=== PATIENT | female | born 2000 | race Caucasian/White ===

== ENCOUNTER → 2024-08-31 | Outpatient (CLI) | payer MEDICAID, SELFPAY ==
[2024-08-31 17:12] LABS: Color, Urine Yellow (Yellow); Glucose, Dipstick Normal (Normal); Leukocyte Esterase-Dipstick 500 /ul (Negative); Nitrite-Dipstick Positive (Negative); Occult Blood-Urine 25 /ul (Negative); Protein-Dipstick 30 mg/dl (Negative); Specific Gravity, Urine 1.025 (1.002-1.030); Urine Bilirubin Dipstick Negative (Negative); Urine Clarity Sl. Cloudy (Clear); Urine Urobilinogen 4 mg/dl (Normal)
[2024-08-31 17:13] LABS: Hemoglobin 13.5 g/dL (12.0-15.0); Mean Corp Hgb Conc 32.1 g/dL (32-36); Mean Corpuscular Hgb 27.5 pg (27.0-32.0); Mean Corpuscular Volume 85.5 fL (81-99); Mean Platelet Vol. 11.8 fl (6.2-12.0); Platelet Count 290 K/mm3 (150-450); RBC Distribution Width CV 14.3 % (11.6-14.6); RBC Distribution Width SD 43.9 fl (35.1-43.9); Red Blood Count 4.91 M/mm3 (4.2-5.4); White Blood Count 11.2 K/mm3 (4.4-11.0)
[2024-08-31 17:28] LABS: Ketone-Dipstick 150 mg/dl (Negative)
[2024-08-31 17:44] LABS: ALB/GLOB Ratio 0.9 RATIO (0.9-2.4); AST(SGOT) 23 U/L (15-37); Alanine Aminotransfer ALT/SGPT 57 U/L (13-56); Albumin, Serum 3.8 g/dL (3.2-5.0); Alkaline Phosphatase 66 U/L (45-117); Anion Gap 13 (5-15); BUN 7 mg/dL (7-18); BUN/Creat Ratio 12.4 RATIO (10-20); Calcium,Total 10.5 mg/dL (8.5-10.1); Chloride 104 mmol/L (98-107); Creatinine, Serum 0.56 mg/dL (0.55-1.02); EST Glomerular Filtration Rate 142 mL/min (>60); Est Glom Filt Rate - Afr Amer 172 mL/min (>60); Globulin 4.4 g/dL (2.2-4.2); Glucose 84 mg/dL (74-106); Potassium 3.5 mmol/L (3.5-5.1); Protein, Total 8.2 g/dL (6.4-8.2); Sodium Level 135 mmol/L (136-145); T4 Free Direct 1.67 ng/dL (0.76-1.46); Thyroid Stim Hormone (TSH) 0.075 uIU/mL (0.358-3.740)
[2024-09-03 12:08] LABS: Vitamin D 1,25-Dihydroxy 59.3 pg/mL (24.8-81.5)
== END | disposition home or self-care (01) ==
PROVIDERS: PCP Nurse Practitioner Family; Referring Provider Nurse Practitioner Family; Visit Provider Nurse Practitioner Family
DX: Z33.1 Pregnant state, incidental (principal); R53.83 Other fatigue; E72.12 Methylenetetrahydrofolate reductase deficiency; R00.0 Tachycardia, unspecified
CPT/HCPCS: 36415; 80053; 81002; 82652; 82746; 84439; 84443; 85027; 87077; 87086; 87088; 87186; 87491; 87591

== ENCOUNTER 2025-03-26 09:25 | Inpatient (IN) | payer MEDICAID, SELFPAY ==
[2025-03-26] VITALS (49 sets, daily range): BP systolic 98–147; BP diastolic 57–106; PULSE 70–109; RESP 16–18; TEMP 36.5–37.2; O2SAT 91–100; BMI 33.5
--- OUTSIDE RECORDS SUMMARY | 2025-03-26 08:58 | XMS RPT_ITS | CCD ---
Author Organization [facility] Care Team Providers Care Cad Intern Name Role Phone Unavailable Primary Care Provider Unavailabl e Doretha SEISMOGRAPH RECORDERShantellLidia Unavailable DORETHA LIDIA SEISMOGRAPH RECORDER%C Consulting Unavailab CAROLYN Gambino CNM Admitting Unavailable CAROLYN RICHMOND CNM Attending Unavailable CAROLYN RICHMOND CNM Primary Care Unavailable PROVIDER, UNKNOWN Consulting Unavailable DORETHA LIDIA SEISMOGRAPH RECORDER%C Referring Unavailab le CSERNYNICOLASA BEAUCHAMP DO Admitting Unavailable CSERNICOLASA CALLE DO Attending Unavailable JONATHONRASTRID CALLEIC DO Primary Care Unavailable DORETHA LIDIA SEISMOGRAPH RECORDER%C Consulting Unavailab le PROVIDER, UNKNOWN Consulting Unavailable ADRIENNE FUNEZ MD Admitting Unavailabl ADRIENNE Chiang MD Attending UnavailADRIENNE Field MD Primary Care Unavailabl e BARRY LARRY MD Admitting Unavailable BARRY LARRY MD Attending Unavailable BARRY LARRY MD Primary Care Unavailable DORETHA LIDIA SEISMOGRAPH RECORDER%C Consulting Unavailab le PROVIDER, UNKNOWN Consulting Unavailable LIDIA RAZA CNM Admitting Unavailable LIDIA RAZA CNM Attending Unavailable LIDIA RAZA CNM Primary Care Unavailable DORETHA LIDIA SEISMOGRAPH RECORDER%C Consulting Unavailab le PROVIDER, UNKNOWN Consulting Unavailable JAMISON ALBERT L Admitting Unavailable ALBERT SWIFT L Attending Unavailable JAMISON ALBERT L Primary Care Unavailable DORETHA, LIDIA SEISMOGRAPH RECORDER%C Consulting Unavailab le PROVIDER, UNKNOWN Consulting Unavailable DORETHA LIDIA SEISMOGRAPH RECORDER%C Primary Care Unavailab le DORETHA, LIDIA SEISMOGRAPH RECORDER%C Admitting Unavailab le DORETHA LIDIA SEISMOGRAPH RECORDER%C Attending Unavailab LIDIA Ham CNM Admitting Unavailable LIDIA RAZA CNM Attending Unavailable LIDIA RAZA CNM Primary Care Unavailable DORETHA, LIDIA SEISMOGRAPH RECORDER%C Consulting Unavailab le PROVIDER, UNKNOWN Consulting Unavailable Doretha SEISMOGRAPH RECORDER-C, Lidia Primary Care Provider Doretha SEISMOGRAPH RECORDER-C, Lidia Referring Provider Tr Rendon Attending Provider Doretha VSC, Lidia Referring Unavailabl e Doretha VSC, Lidia Primary Care Unavailabl e Laron, Barry Attending Unavailable Doretha VSC, Lidia Referring Unavailabl e Doretha VSC, Lidia Attending Unavailabl e Doretha VSC, Lidia Primary Care Unavailabl e Doretha VSC, Lidia Primary Care Unavailabl e Laron, Nora Referring Unavailable Laron, Barry Attending Unavailable Doretha VSC, Lidia Referring Unavailabl e Tr Carrasquillo Attending Unavailable Doretha VSC, Lidia Primary Care Unavailabl e KRISTA, CAPRI S Attending Unavailable PLOTTS, CAROLYN Referring Unavailable RAZA, LIDIA Attending Unavailable RAZA, LIDIA Referring Unavailable BENDARAEMMA Jauregui Attending Unavaila ble HAURYTIA Attending Unavailable STEFF, LIZETH Attending Unavailable KRISTA, RIM Landy Attending Unavailable RAZA, LIDIA Attending Unavailable STEFF, LIZETH Attending Unavailable PLOTTS, CAROLYN Referring Unavailable STEFF, LIZETH Attending Unavailable PLOTTS, CAROLYN Referring Unavailable LUIS MIGUELKALEE CHO Attending Unavailable PLOTTS, CAROLYN Referring Unavailable RAZA, LIDIA Referring Unavailable STEFF, LIZETH Attending Unavailable RAZA, LIDIA Referring Unavailable HAURY, TIA Referring Unavailable RAZA, LIDIA Referring Unavailable STEFANIE CAMPBELL Attending Unavailable RAZA, LIDIA Referring Unavailable PLOTTS, CAROLYN Attending Unavailable JAMISON, ALBERT Referring Unavailable WISSHARYN CAUSEY Attending Unavailable JAMISON, ALBERT Referring Unavailable Allergies Allergy Classification Reported Allergen(s) Allergy Type Date of Onset Reaction(s) Facility (20 sources) Amoxicillin; Translations: [AMOXICILLIN] Drug Allergy 5 GI Upset [facility] (20 sources) H Papillomavirus Vac,Qval (Pf); Translations: [H PAPILLOMAVIRUS VAC,QVAL (PF)] Drug Allergy 5 Other: See Comments [facility] (1 source) Penicillin Drug Allergy [facility] Repository (1 source) raNITIdine Drug Allergy 5 PT UNSURE OF REACTION [facility] (1 source) Amoxicillin Drug Allergy 5 [facility] Repository (1 source) raNITIdine Drug Allergy 5 [facility] Repository Medications Current Medications Medication Drug Class(es) Dates Sig (Normalized) Sig (Original) alpha-tocopherol acetate 30 unt / ascorbic acid 100 mg / beta carotene 1000 unt / calcium carbonate 200 mg / calcium pantothenate 7 mg / cholecalciferol 400 unt / docusate sodium 25 mg / ferrous fumarate 29 mg / folic acid 1 mg / niacinamide 15 mg / pyridoxine hydrochloride 20 mg / riboflavin 3 mg / thiamine 3 mg / vitamin b12 0.012 mg / zinc oxide 20 mg oral tablet (1 source) Vitamin B12, Vitamin D, Vitamin C Start: 09-09-2024 Pnv 119-Iron Fum-Folic Acid 29 mg iron- 1 mg tablet Active {tbl} PO September 09, 2024 1:00am aspirin 81 mg delayed release oral tablet (20 sources) Platelet Aggregation Inhibitor, Nonsteroidal Anti-inflammatory Drug Start: 09-15-2024 take 1 tablet by mouth once daily aspirin, enteric coated (ECOTRIN LOW STRENGTH) 81 mg EC tablet Indications: with uncertain dates, antepartum (HCC) Take 1 tablet by mouth once daily. 90 tablet 3 09/15/2024 Active Blood-Glucose Meter (2 sources) Start: 01-18-2025 End: 01-19-2025 Blood-Glucose Meter Use as directed to check glucose levels up to seven times daily. 1 each 01/18/2025 01/19/2025 Active cephalexin 500 mg oral capsule (2 sources) Cephalosporin Antibacterial Start: 09-20-2024 End: 09-27-2024 take 1 capsule by mouth four times daily cephALEXin (KEFLEX) 500 mg capsule Take 1 capsule by mouth four times daily for 7 days. 28 capsule 09/20/2024 09/27/2024 Active isopropyl alcohol 0.7 ml/ml medicated pad (16 sources) Start: 01-18-2025 alcohol swabs (ALCOHOL PREP PADS) Use as directed to check glucose levels up to seven times daily. 200 each 8 01/18/2025 Active loratadine 10 mg oral tablet (2 sources) Start: 09-09-2024 End: 09-15-2024 take 1 tablet by mouth once daily as needed Loratadine 10 mg tablet Active 10 mg PO daily as needed September 15, 2024 4:44pm 24 hr metoprolol succinate 50 mg extended release oral tablet (20 sources) beta-Adrenergic Juan Start: 09-15-2024 take 1 tablet by mouth twice daily metoprolol succinate ER (TOPROL XL) 50 mg 24 hr tablet Take 1 tablet by mouth two times a day. 10/15/2024 Active Start: 07-13-2024 End: 10-15-2024 take 1 tablet by mouth once daily Metoprolol Succinate 100 mg tablet extended release 24 hr Discontinued 100 mg PO daily September 09, 2024 1:00am September 15, 2024 5:24pm pantoprazole 20 mg delayed release oral tablet (20 sources) Proton Pump Inhibitor Start: 12-20-2024 End: 01-20-2025 take 1 tablet by mouth once daily pantoprazole DR (PROTONIX) 20 mg tablet Take 1 tablet by mouth once daily. 30 tablet 2 01/20/2025 Active VITAMIN 27 mg iron- 0.8 mg tablet (20 sources) Start: 03-11-2025 take 1 tablet by mouth once VITAMIN 27 mg iron- 0.8 mg tablet Take 1 tablet by mouth every afternoon. 30 tablet 3 03/11/2025 Active Start: 09-01-2024 End: 03-11-2025 take 1 tablet by mouth once VITAMIN 27 mg iro n- 0.8 mg tablet Take 1 tablet by mouth every afternoon. 09/01/2024 03/11/2025 Discontinued Start: 09-01-2024 take 1 tablet by mouth once [place] ENATAL VITAMIN 27 mg iron- 0.8 mg tablet Take 1 tablet by mouth every afternoon. 09/01/2024 Active Completed/Discontinued Medications Medication Drug Class(es) Dates Sig (Normalized) Sig (Original) amoxicillin 50 mg/ml oral suspension (2 sources) Penicillin-class Antibacterial Start: 03-02-2025 End: 03-02-2025 250 mg, ORAL, ONCE (UP TO 30 DAYS AMB), 1 dose, On Fri03/02/25 at 1130, Give 25mg amoxicillin suspension, wait 30 minutes. If there is no adverse reaction after 30 minutes , administer the remaining 225mg of amoxicillin suspension and monitor for an additional 60 minutes. Vital Signs recorded at baseline, PRN with symptoms, and at oral challenge completion. Refrigerate - Shake Well., Antimicrobial indication: Prophylaxis Start: 03-02-2025 End: 03-02-2025 amoxicillin 250 mg oral liqu id (AMOXIL) famotidine 20 mg oral tablet (18 sources) Histamine-2 Receptor Antagonist Start: 09-09-2024 End: 01-26-2025 famotidine (PEPCID) 20 mg tablet Take 20 mg by mouth. 09/14/2024 12/20/2024 Discontinued Problems Active Problems Problem Classification Problem Date Documented Date Episodic/Chronic Administrative/socia l admission (2 sources) Inadequate material resources; Translations: [Transportation insecurity] 12-13-2024 Episodic Asthma (1 source) Asthma; Translations: [Unspecified asthma, uncomplicated] 09-09-2024 Chronic Cardiac dysrhythmias (2 sources) Inappropriate sinus tachycardia; Translations: [Inappropriate sinus tachycardia] 09-09-2024 Chronic Diabetes mellitus without complication (19 sources) Increased glucose level; Translations: [Other abnormal glucose] Onset: 01-05-2025 01-05-2025 Episodic Diabetes or abnormal glucose tolerance complicating ; childbirth; or the puerperium (1 source) and type 1 diabetes mellitus; Translations: [Pre-existing type 1 diabetes mellitus, in , unspecified trimester] 09-20-2024 Chronic Diabetes or abnormal glucose tolerance complicating ; childbirth; or the puerperium (20 sources) Gestational diabetes mellitus; Translations: [Gestational diabetes mellitus in , unspecified control] Onset: 01-20-2025 01-18-2025 Episodic E Codes: Adverse effects of medical drugs (4 sources) Adverse reaction to drug; Translations: [Adverse effect of unspecified drugs, medicaments and biological substances, initial encounter] Onset: 12-23-2024 12-22-2024 Episodic Esophageal disorders (1 source) Gastroesophageal reflux disease; Translations: [Gastro-esophageal reflux disease without esophagitis] 09-09-2024 Chronic Other complications of (1 source) Late entry into care; Translations: [Supervision of with insufficient care, unspecified trimester] 12-20-2024 Episodic Other complications of (1 source) ultrasound scan abnormal; Translations: [Abnormal ultrasonic finding on screening of mother] 01-20-2025 Episodic Other complications of (6 sources) Group B Streptococcus carrier; Translations: [Streptococcus B carrier state complicating ] Onset: 03-13-2025 03-13-2025 Episodic Other complications of (1 source) Streptococcus B carrier state complicating ; Translations: [Group B Streptococcus carrier, antepartum (HCC)] Onset: 03-13-2025 Episodic Other complications of (1 source) Supervision of high risk , unspecified, third trimester; Translations: [Supervision of high risk in third trimester (HCC)] Onset: 03-11-2025 Episodic Other complications of (1 source) Abnormal ultrasonic finding on screening of mother; Translations: [Abnormal ultrasound] Onset: 01-20-2025 Episodic Other complications of (1 source) Supervision of high risk , unspecified, second trimester; Translations: [Supervision of high risk in second trimester ([facility])] Onset: 12-20-2024 Episodic Other complications of (1 source) Supervision of with insufficient care, unspecified trimester; Translations: [Late care affecting , antepartum ([facility])] Onset: 12-20-2024 Episodic Other female genital disorders (1 source) Vaginal discharge; Translations: [Other specified noninflammatory disorders of vagina] 09-15-2024 Episodic Other lower respiratory disease (1 source) Dyspnea; Translations: [Dyspnea, unspecified] 09-09-2024 Episodic Other nutritional; endocrine; and metabolic disorders (1 source) 5,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; 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] 09-09-2024 Chronic Other and delivery including normal (6 sources) with uncertain dates; Translations: [Encounter for supervision of normal , unspecified, unspecified trimester] Onset: 09-15-2024 09-15-2024 Episodic Other screening for suspected conditions (not mental disorders or infectious disease) (9 sources) Patient encounter status; Translations: [Encounter for screening for malignant neoplasm of cervix] Onset: 10-14-2024 09-15-2024 Episodic Residual codes; unclassified (1 source) Gestation period, 12 weeks; Translations: [12 weeks gestation of ] 09-20-2024 Episodic Residual codes; unclassified (1 source) Gestation period, 16 weeks; Translations: [16 weeks gestation of ] 10-14-2024 Episodic Residual codes; unclassified (2 sources) Gestation period, 25 weeks; Translations: [25 weeks gestation of ] 12-20-2024 Episodic Residual codes; unclassified (1 source) Gestation period, 28 weeks; Translations: [28 weeks gestation of ] 01-04-2025 Episodic Residual codes; unclassified (1 source) Gestation period, 30 weeks; Translations: [30 weeks gestation of ] 01-20-2025 Episodic Residual codes; unclassified (1 source) Gestation period, 35 weeks; Translations: [35 weeks gestation of ] 02-25-2025 Episodic Residual codes; unclassified (1 source) 38 weeks gestation of ; Translations: [38 weeks gestation of (HCC)] Onset: 03-17-2025 Episodic Residual codes; unclassified (1 source) 37 weeks gestation of ; Translations: [37 weeks gestation of (HCC)] Onset: 03-11-2025 Episodic Residual codes; unclassified (1 source) 35 weeks gestation of ; Translations: [35 weeks gestation of (HCC)] Onset: 02-25-2025 Episodic Residual codes; unclassified (1 source) 30 weeks gestation of ; Translations: [30 weeks gestation of (HCC)] Onset: 01-20-2025 Episodic Residual codes; unclassified (1 source) 25 weeks gestation of ; Translations: [25 weeks gestation of (HCC)] Onset: 01-04-2025 Episodic Residual codes; unclassified (1 source) 28 weeks gestation of ; Translations: [28 weeks gestation of (HCC)] Onset: 01-04-2025 Episodic Residual codes; unclassified (1 source) Gestation period, 37 weeks; Translations: [37 weeks gestation of ] 03-11-2025 Episodic Residual codes; unclassified (1 source) Gestation period, 39 weeks; Translations: [39 weeks gestation of ] 03-25-2025 Episodic Thyroid disorders (20 sources) Hypothyroidism; Translations: [Other specified hypothyroidism] Onset: 09-16-2024 09-16-2024 Chronic Unclassified (20 sources) [facility] Education - COMMON Onset: 09-15-2024 09-15-2024 Unclassified (20 sources) Education - [place] Onset: 09-15-2024 09-15-2024 Unclassified (2 sources) Inappropriate sinus tachycardia, so stated; Translations: [Inappropriate sinus tachycardia, so stated] Onset: 09-15-2024 Unclassified (1 source) Transportation insecurity; Translations: [Transportation insecurity] Onset: 12-20-2024 Urinary tract infections (1 source) Urinary tract infectious disease; Translations: [Urinary tract infection, site not specified] 09-15-2024 Episodic Past or Other Problems Problem Classification Problem Date Documented Da te Episodic/Chronic Allergic reactions (20 sources) Allergy to penicillin; Translations: [Allergy status to penicillin] Onset: 09-20-2024 09-20-2024 Episodic Cardiac dysrhythmias (20 sources) Tachycardia; Translations: [Tachycardia, unspecified] Onset: 09-16-2024 09-16-2024 Episodic Other complications of (20 sources) High risk ; Translations: [Supervision of high risk , unspecified, first trimester] Onset: 09-16-2024 09-16-2024 Episodic Other complications of (20 sources) Urinary tract infection in ; Translations: [Unspecified infection of urinary tract in , unspecified trimester] Onset: 09-16-2024 09-16-2024 Episodic Other complications of (1 source) Unspecified infection of urinary tract in , unspecified trimester; Translations: [UTI (urinary tract infection) in , antepartum (HCC)] Onset: 09-16-2024 Episodic Other lower respiratory disease (1 source) Dyspnea, unspecified; Translations: [Dyspnea, unspecified] Onset: 09-15-2024 Episodic Unclassified (1 source) Patient encounter status 11-17-2024 Results Test Name Value Interpretation Reference Range Facil ity URINE OB DIP B/Oon Glucose Ql (U) Negative Neg mg/dL [facility] Interpretation and review of laboratory results Normal [facility] Protein.monoclonal (U) [Mass/Vol] Negative Neg mg/dL [facility] ROUTINE, GROUP B ST REPTOCOCCUS BY PCRon 03-13-2025 Interpretation and review of laboratory results Abnormal [facility] S. agalactiae DNA DILIP+probe Ql (Unsp spec) Detected Abnormal Not detected [facility] If susceptibility testing is needed and was not requested with initial test order, call lab ([facility] micro is [phone]) within 5 days to initiate workup. This PCR is performed on a vaginal-rectal swab after culture enrichment. It is the most sensitive method for Group B Streptococcus screening. (Obstet Gynecol. 2020 PMID [id number]) [facility] ROUTINE, GROUP B ST REPTOCOCCUS BY PCRon 03-11-2025 ROUTINE, GROUP B STREPTOCOCCUS BY PCR Detected Abnormal [facility] Comment on above: Performed By: #### G BPCR ####[facility] LABCLIA [id number] [place] [address] [place] URINE OB DIP B/Oon Glucose Ql (U) Negative Neg mg/dL [facility] Interpretation and review of laboratory results Normal [facility] Protein.monoclonal (U) [Mass/Vol] trace Neg mg/dL [facility] Examination level ultrasound on 03-04-2025 [facility] Examination level ultrasound on 03-03-2025 Radiology Study observation (narrative) [facility] T4 Free SerPl-mCncon 025 Free T4 [Mass/Vol] 1.1 ng/dL Normal 0.9-1.7 [facility] Comment on above: Order Comment: Speci men Type: BLOOD SPECIMENOrdering Facility: [facility] Address: [address] [place] [address] Performed By: #### 3 024-7, 3016-3 ####[facility] LABIA [id number] [place] [address] [place] TSH SerPl-aCncon 03-03-2025 TSH Qn 1.110 m[IU]/L Normal 0.270-4.200 [facility] Comment on above: Order Comment: Speci men Type: BLOOD SPECIMENOrdering Facility: [facility] Address: [address] [place] [address] Result Comment: If t he patient is , TSH reference range varies by gestational period: First Trimester (weeks 9-12): 0.180-2.990 mIU/L Second Trimester: 0.110-3.980 mIU/L Third Trimester: 0.480-4.710 mIU/L Darrick Ramires et al. A Practical Approach for the Verifications and Determination of Site- and Trimester-Specific Reference Intervals for Thyroid Function tests in . Thyroid, 2019:29:3:412-420. William Campos, et al. 2017 Guidelines of the [employer] Thy[employer] for the Diagnosis and Management of Thyroid Disease during and the . Thyroid, 2017:27:3:315-389. Performed By: #### 3 024-7, 3016-3 ####[facility] LABCLIA [id number] [place] [address] [place] URINE OB DIP B/Oon 5 Glucose Ql (U) Negative Neg mg/dL [facility] Protein.monoclonal (U) [Mass/Vol] trace Neg mg/dL [facility] CNOVon 03-02-2025 CNOV Office Visit ([facility] ) -------- LÓPEZ BRAVO ([id number]) 4 F Date Time Provider Department 03/02/25 10:30 AM CAPRI BROWN During your visit today, we recorded the following information about you: Temperature Pulse Respiration Blood pressure 98.2 degrees 108/minute 16/minute 107/73 Weight Height 82.6 kg 1.57 m Capri Brown MD 03/02/2025 8:40 PM Signed Allergy and Immunology All aspects of this note have been reviewed and updated López Bravo is a 24 year old female who was last seen by me on 12/23/2024, here today for follow up. Since last visit Currently 36 weeks Here today for penicillin testing Held antihistamines this week Held morning dose of metoprolol Documentation from Previous Encounters 12/23/2024 López is currently 26 weeks . She reports a history of possible penicillin allergy, noting a past reaction to amoxicillin characterized by emesis and abdominal discomfort. This reaction occurred while she was being treated for a UTI, which required hospitalization due to dehydration. She denies any history of urticaria or rash with amoxicillin. She has a family history of penicillin allergy, with both her mother and sister affected. She also reports a significant reaction to the Gardasil vaccine at age 14, which included severe leg weakness and somnolence lasting three days. She describes herself as having very sensitive skin, reacting to various soaps and shaving creams with bumps on her legs. She currently uses loratadine as needed for allergies. López has a history of tachycardia, with heart rates reaching 200 bpm. She has been on metoprolol 50 mg BID since age 18, which she reports effectively controls her heart rate but causes fatigue. PAST MEDICAL AND SURGICAL HISTORY: PAST MEDICAL HISTORY Diagnosis Date Tachycardia PAST SURGICAL HISTORY Procedure Laterality Date HEMATOMA EVACUATION 2002 chin ALLERGIES: is allergic to gardasil [h papillomavirus vac,qval (pf)]. FAMILY HISTORY: FAMILY HISTORY Problem Relation Age of Onset Blood Disease Mother mtfhr Thyroid Mother Diabetes Father type 2 other (asd) Sister arterial spectrum defect Fibromyalgia Maternal Grandmother Coronary Artery Disease Maternal Grandmother other (htn) Maternal Grandmother other (mtfhr) Maternal Grandmother Stroke Maternal Grandfather Heart disease Paternal Grandmother REVIEW OF SYSTEMS: All systems were reviewed and were negative except as listed in the HPI and above. PHYSICAL EXAM: BP 107/73 (BP Site: Right Arm, BP Position: Sitting, BP Cuff Size: Regular Adult) Pulse 108 Temp 36.8 ?C (98.2 ?F) (Oral) Resp 16 SpO2 98% General: The patient is pleasant, well groomed, in no acute distress, breathing comfortably and interactive with the exam. Head: Normocephalic, atraumatic Musculoskeletal: Normal muscle tone and gait. Neurologic: Grossly non-focal Psych: Appropriate affect. Dermatologic: No rash, urticaria or excoriations. PROCEDURE: López has not been sick, has not taken any antihistamines, has had no asthma symptoms recently and has no rashes today. I have discussed the risks, benefits, and alternatives for the drug ingestion challenge being performed today. The benefits of the drug challenge include being able to re-introduce the drug if needed in the future. The risks include the patient developing an allergic (IgE/Anaphylaxis) delayed allergic or non-allergic reaction to the food. Symptoms of an allergic reaction could include hives, swelling, wheezing, shortness of breath, lightheadedness, low blood pressure, vomiting, and diarrhea. Delayed reactions tend to be rashes that are self limited and not life threatening. Rare reactions such as blistering skin rashes or serum sickness like reaction may occur though this is rare and is not the reason this drug challenge is being done- Therefore the risk for the blistering rashes or serum sickness like reaction is the same as the general population. Treatment of these reactions may require medications such as antihistamines, steroids, intravenous fluids or epinephrine, and the reaction may require hospitalization. If the patient tolerates the drug challenge then they may use this drug as clinically indicated after the patient, family and treating physician determine on an individual basis that the benefits outweigh the risks- which is they way all drugs should be thought of. The alternatives involve the patient continuing drug avoidance and using equally efficacious alternatives as clinically indicated. ALLERGENS Negative Control (50% glycerin/50% cocas for prick and HSA for intradermal) P: W = 0 mm F = 0 mm ID:W = 0 mm F = 0 mm PENICILLIN GK 10,000 UNITS/ML [facility]: [id number] LOT: [id number] Exp: 10/08/2025 P: W = 0 mm F = 0 mm ID: W = 0 mm F = 0 mm PREPEN -(benzy (more content not included)... Normal [facility] 02-28-2025 [facility] Telephone ([id number]) -------- LÓPEZ BRAVO ([id number]) 4 F Date Time Provider Department 02/28/25 LIZETH PATEL [id number] During your visit today, we recorded the following information about you: Lizeth Patel RN 02/28/2025 8:34 AM Signed 3rd risk assessment form submitted 02/28/2025. 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 - blood sugar diagnostic test strip Use as directed to check glucose levels up to seven times daily. - Lancets Use as directed to check glucose levels up to seven times daily. - alcohol swabs (ALCOHOL PREP PADS) Use as directed to check glucose levels up to seven times daily. - metoprolol succinate ER (TOPROL XL) 50 mg 24 hr tablet Take 1 tablet by mouth two times a day. - aspirin, enteric coated (ECOTRIN LOW STRENGTH) 81 mg EC tablet Take 1 tablet by mouth once daily. - VITAMIN 27 mg iron- 0.8 mg tablet Take 1 tablet by mouth every afternoon. Problem List As Of Date 02/28/2025 Noted Resolved Supervision of high risk in first tri*09/16/2024 Other specified hypothyroidism [E03.8] 09/16/2024 Tachycardia [R00.0] 09/16/2024 UTI (urinary tract infection) in , ant*09/16/2024 Penicillin allergy [Z88.0] 09/20/2024 Elevated glucose [R73.09] 01/05/2025 Diet controlled gestational diabetes mellitus (*01/20/2025 Encounter Status:Closed by LIZETH PATEL on 02/28/25 Normal [facility] URINE OB DIP B/Oon Glucose Ql (U) Negative Neg mg/dL [facility] Interpretation and review of laboratory results Normal [facility] Protein.monoclonal (U) [Mass/Vol] Negative Neg mg/dL [facility] Examination level ultrasound on 02-03-2025 [facility] Examination level ultrasound on 02-02-2025 Radiology Study observation (narrative) [facility] Cardiology Visit Reporton Cardiology Visit Report [facility] [address] [place] [address] OFFICE VISIT Date of Service: 01/26/25 MR#: [id number] Acct: [id number] Name: LÓPEZ BRAVO Rep #: [id number] : 2000 Provider: GOLDY Finley Age/Sex: 24/F Location: [facility] Status: Signed HPI HPI History of Present Illness Details: Sushma Bravo is a 24-year-old female who presents to office today for follow-up for monitoring her cardiovascular health. She presented to our office in September 2024 with concerns of tachycardia x 7 years. She was told that she had inappropriate sinus tachycardia but they could not perform an ablation. She has been on metoprolol since she was 18 and her dosage has been increased. In March 2024, she did see a software engineer web services in [place] and at that time, an EKG demonstrated sinus rhythm at a rate of 87 bpm and no acute changes were noted. No particular therapy was prescribed. Recent, she has been feeling fatigued when she takes the medication and feels like sleeping all the time. Patient was seen in office 09/15/2024 and was suggested to undergo echocardiogram and divide her metoprolol dose to 50 mg twice a day. Of note, she was about 12 weeks at the time of this appointment. Upon presentation today, patient reports doing well. She reports her fatigue and headaches have improved. She is now 31 weeks . Her heartburn is long-standing and unchanged. She reports tolerating metoprolol divided twice daily. She denies noticing any tachycardia. Her lightheadedness has improved as well. Further ROS below. Intake Vital Signs 09/15/24 15:49 01/26/25 14:25 Height 5 ft 2 in 5 ft 2 in Weight: 165 lb 179 lb BMI 30.2 32.7 BP 114/78 107/77 Blood Pressure Location Lt radial Lt brachial Position Sitting Sitting Respiration 16 18 Pulse 103 H 94 Pulse Source Monitor NIBP Intake Visit Reasons: 4 M FU Occupational Psychologist Required: No Accompanied by: Brother Is patient in pain?: No Allergies amoxicillin Allergy (Intermediate, Verified 01/26/25 14:50) Vomiting ranitidine Allergy (Intermediate, Verified 01/26/25 14:50) PT UNSURE OF REACTION Medications ???Medication ???Instructions ???Recorded ???Confirmed ???Type vitamins no.119-iron tab PO 09/09/24 01/26/25 History fumarate 29 mg-folic acid 1 mg tablet aspirin 81 mg tablet,delayed 81 mg PO QDAY 09/15/24 01/26/25 Hi story release (Adult Low Dose Aspirin) loratadine 10 mg tablet 10 mg PO QDAY PRN 09/15/24 5 History metoprolol succinate 50 mg 50 mg PO BID #120 tabs 09/15/24 Rx tablet,extended release 24 hr (Toprol XL) pantoprazole 20 mg tablet,delayed 20 mg PO QDAY 01/26/25 01/26/25 H istory release Have you fallen in the past year?: No PFSH Medical History Asthma GERD (gastroesophageal reflux disease) Methylenetetrahydrofolat e reductase deficiency Dyspnea Inappropriate sinus tachycardia Surgical History No history of previous surgery Family History Sister Heart disease Social History Smoking Status: Never smoker ROS Const Const: Positive for headache(s) (pressure headaches; improved); Negative for fatigue, weakness or weight gain Eyes Eyes: Positive for other (tinnitus) ENT ENT: Positive for headache(s) (pressure headaches; improved); Negative for dizziness, Nosebleed/epistaxis or balance problems Cardio Chest Pain: No Palpitations: No Edema: None Muscle aches with walking: None Resp Respiratory: Negative for SOB with activity, SOB at rest or SOB orthopnea SOB lying down GI GI: Positive for heartburn (acid reflux per pt; medicated; controlled); Negative nausea or vomiting Musc Musc: Negative for muscle aches/ myalgia, muscle weakness, joint pain or balance problems Neuro Neuro: Positive for lightheadedness (improved) and headache(s) (pressure headaches; improved); Negative for dizziness, near syncope, syncope or weakness Endo Endo: Negative for fatigue Cardiology Exam Const Appearance: cooperative, comfortable, no acute distress and well developed; Negative diaphoretic or ill appearing Orientation: alert and oriented x3 Ambulating without assistive device Head Head: normal to inspection, normocephalic and atraumatic Ears: hearing grossly normal bilaterally Nose: external nose normal and Negative epistaxis Face and Sinus: face symmetric Eyes General: appearance normal, both eyes and all related structures Eyelids: eyelids normal Conjunctivae: conjunctivae normal; Negative scleral icterus EOM: EOM intact bila (more content not included)... Normal [facility] Bacteria Ur Culton Bacteria identified Cx Nom (U) ORGANISM ID: 1 <10,000 CFU/ml Normal urogenital delores Normal [facility] Comment on above: Performed By: #### 6 30-4 ####[facility] LABCLIA [id number] [address] [facility] CNPMelida 01-18-2025 CNPN Telephone (OBGYWM) -------- LÓPEZ BRAVO ([id number]) 4 F Date Time Provider Department 01/18/25 CAROLYN RICHMOND During your visit today, we recorded the following information about you: Lizeth Gleason RN 01/18/2025 9:23 AM Signed Received 3 hour glucose results from [place]. Orders pending for consults (for diabetes education and nuclear licensing engineer) and testing supplies. Patient sees Endo for hypothyroidism. [employer] message sent to patient. Lizeth Gleason RN Scan on 01/18/2025 9:02 AM by Provider, Niranjan, CYRUS: 3 hour glucose Carolyn Richmond APRN.CNM 01/18/2025 4:38 PM Signed Orders signed. Please assist with scheduling growth US. JONAH Donato Jennifer, RN 01/18/2025 4:46 PM Signed Appt note made for 01/20/25 if patient does not view [employer] message. Needs to schedule appointments. PREETI Cox Jennifer, RN 01/19/2025 2:59 PM Signed Patient called in to the office. She reviewed [employer] message. Transferred to [facility] to assist with scheduling. Lizeth Gleason RN Allergies As of Date: 01/18/2025 Noted Allergy Reaction AMOXIL (AMOXICILLIN) 09/15/2024 8 - GI Upset GARDASIL (H PAPILLOMAVIRUS VAC,QV*12/23/2024 14 - Other: See Comments Comments: Made her legs wobbly and tired for 3 days Date Reviewed: 01/04/2025 Reviewed by: Lizeth Tate MD - Fully Assessed Reason for Visit: Results [95] Cmt: 3 hour glucose Primary Visit Diagnosis:Gestational diabetes mellitus (GDM) in third trimester, gestational diabetes method of control unspecified (HCC) [O24.419] Order(s):Blood-Glucose MeterUse as directed to check glucose levels up to seven times daily.Disp: 1 eachRfl: 0 blood sugar diagnostic test stripUse as directed to check glucose levels up to seven times daily.Disp: 200 stripRfl: 8 LancetsUse as directed to check glucose levels up to seven times daily.Disp: 200 eachRfl: 8 OBSTETRIC ULTRASOUND [facility] [[id number]] Order #: [id number]: 1 STANDING alcohol swabs (ALCOHOL PREP PADS)Use as directed to check glucose levels up to seven times daily.Disp: 200 eachRfl: 8 CONSULT TO DIABETES EDUCATION DSME [8662679] Order #: [id number]: 2 FUTURE CONSULT TO NUTRITION THERAPY [9020] Order #: [id number]: 4 FUTURE Prescriptions as of 01/19/2025 - Blood-Glucose Meter Use as directed to check glucose levels up to seven times daily. - blood sugar diagnostic test strip Use as directed to check glucose levels up to seven times daily. - Lancets Use as directed to check glucose levels up to seven times daily. - alcohol swabs (ALCOHOL PREP PADS) Use as directed to check glucose levels up to seven times daily. - pantoprazole DR (PROTONIX) 20 mg tablet Take 1 tablet by mouth once daily. - metoprolol succinate ER (TOPROL XL) 50 mg 24 hr tablet Take 1 tablet by mouth two times a day. - aspirin, enteric coated (ECOTRIN LOW STRENGTH) 81 mg EC tablet Take 1 tablet by mouth once daily. - VITAMIN 27 mg iron- 0.8 mg tablet Take 1 tablet by mouth every afternoon. Problem List As Of Date 01/18/2025 Noted Resolved Supervision of high risk in first tri*09/16/2024 Other specified hypothyroidism [E03.8] 09/16/2024 Tachycardia [R00.0] 09/16/2024 UTI (urinary tract infection) in , ant*09/16/2024 Penicillin allergy [Z88.0] 09/20/2024 Elevated glucose [R73.09] 01/05/2025 Prescriptions ordered this encounter Disp Refills Start End BLOOD-GLUCOSE METER 1 ea* 0 01/18/2025 01/19/2025 Cmt: Per Insurance Coverage Sig: Use as directed to check glucose levels up to seven times daily. BLOOD SUGAR DIAGNOSTIC STRIPS 200 * 8 01/18/2025 Cmt: Per Insurance Coverage Sig: Use as directed to check glucose levels up to seven times daily. LANCETS 200 * 8 01/18/2025 Cmt: Per Insurance Coverage Sig: Use as directed to check glucose levels up to seven times daily. ALCOHOL SWABS 200 * 8 01/18/2025 Cmt: Per Insurance Coverage Sig: Use as directed to check glucose levels up to seven times daily. Encounter Status:Closed by CAROLYN RICHMOND on 01/18/25 Normal [facility] GLUCOSE TOLERANCE-3 HOURon 0 01-13-2025 GLUCOSE TOLERANCE-3 HOUR Normal [facility] Comment on above: Result Comment: 3 HO UR GLUCOSE TOLERANCE Reference Range BLOOD Adult(non) Adult() FASTING _102 mg/dl <100 mg/dL 95 mg/dL 01/13/25.1144.JLN. 1 HOUR _206 mg/dl 70-115 mg/dL 180 mg/dL 01/13/25.1144.JLN. 2 HOUR _216 mg/dl <140 mg/dL 155 mg/dL 01/13/25.1144.JLN. 3 HOUR _190 mg/dl 70-115 mg/dL 140 mg/dL 01/13/25.1143.JLN. URINE-GLUCOSE Fasting......... _NA (NORMAL) 01/13/25.JLN. 1 hour.......... _NA (NORMAL) 01/13/25.JLN. 2 hours......... _NA (NORMAL) 01/13/25.JLN. 3 hours......... _NA (NORMAL) 01/13/25.JLN. URINE-KETONES Fasting......... _NA (NEGATIVE) 01/13/25.JLN. 1 hour.......... _NA (NEGATIVE) 01/13/25.JLN. 2 hour.......... _NA (NEGATIVE) 01/13/25.JLN. 3 hour.......... _NA (NEGATIVE) 01/13/25.JLN. Performed By: #### 2 [id number] ####[facility],[address] [place] [address] CBC W Auto Differential pane l (Bld)on 01-04-2025 Basophils (Bld) [#/Vol] 10*3/uL Normal <0.11 [facility] Comment on above: Order Comment: Speci men Type: BLOOD SPECIMENOrdering Facility: [facility] Address: [address] [place] [address] Performed By: #### 5 7021-8 ####[facility] [id number] [place] [address] [place] Basophils/100 WBC (Bld) 0.2 % Normal [facility] Comment on above: Order Comment: Speci men Type: BLOOD SPECIMENOrdering Facility: [facility] Address: [address] [place] [address] Performed By: #### 5 7021-8 ####[facility] CHAPELELISALIA [id number] [place] [address] [place] Differential cell count method Nom (Bld) Auto Normal [facility] Comment on above: Order Comment: Speci men Type: BLOOD SPECIMENOrdering Facility: [facility] Address: [address] [place] [address] Performed By: #### 5 7021-8 ####[facility] [id number] [place] [address] [place] Eosinophils (Bld) [#/Vol] 10*3/uL Normal <0.46 [facility] Comment on above: Order Comment: Speci men Type: BLOOD SPECIMENOrdering Facility: [facility] Address: [address] [place] [address] Performed By: #### 5 7021-8 ####[facility] [id number] [place] [address] [place] Eosinophils/100 WBC (Bld) 0.2 % Normal [facility] Comment on above: Order Comment: Speci men Type: BLOOD SPECIMENOrdering Facility: [facility] Address: [address] [place] [address] Performed By: #### 5 7021-8 ####[facility] [id number] [place] [address] [place] Erythrocyte distribution width (RBC) [Ratio] 13.4 % Normal 11.5-15.0 [facility] Comment on above: Order Comment: Speci men Type: BLOOD SPECIMENOrdering Facility: [facility] Address: [address] [place] [address] Performed By: #### 5 7021-8 ####[facility] [id number] [place] [address] [place] Hematocrit (Bld) [Volume fraction] 36.9 % Normal 36.0-46.0 [facility] Comment on above: Order Comment: Speci men Type: BLOOD SPECIMENOrdering Facility: [facility] Address: [address] [place] [address] Performed By: #### 5 7021-8 ####[facility] [id number] [place] [address] [place] Hemoglobin (Bld) [Mass/Vol] 12.4 g/dL Normal 11.5-15.5 [facility] Comment on above: Order Comment: Speci men Type: BLOOD SPECIMENOrdering Facility: [facility] Address: [address] [place] [address] Performed By: #### 5 7021-8 ####[facility] [id number] [place] [address] [place] Immature granulocytes (Bld) [#/Vol] 0.05 10*3/uL Normal <0.10 [facility] Comment on above: Order Comment: Speci men Type: BLOOD SPECIMENOrdering Facility: [facility] Address: [address] [place] [address] Performed By: #### 5 7021-8 ####[facility] [id number] [place] [address] [place] Immature granulocytes/100 WBC (Bld) 0.5 % Normal [facility] Comment on above: Order Comment: Speci men Type: BLOOD SPECIMENOrdering Facility: [facility] Address: [address] [place] [address] Performed By: #### 5 7021-8 ####[facility] CHAPELNCLIA [id number] [place] [address] [place] Lymphocytes (Bld) [#/Vol] 1.29 10*3/uL Normal 1.00-4.00 [facility] Comment on above: Order Comment: Speci men Type: BLOOD SPECIMENOrdering Facility: [facility] Address: [address] [place] [address] Performed By: #### 5 7021-8 ####[facility] [id number] [address] [place] Lymphocytes/100 WBC (Bld) 12.0 % Normal [facility] Comment on above: Order Comment: Speci men Type: BLOOD SPECIMENOrdering Facility: [facility] Address: [address] [place] [address] Performed By: #### 5 7021-8 ####[facility]ELNCTIMPAN[facility] [id number] [place] [address] [place] MCH (RBC) [Entitic mass] 32.6 pg Normal 26.0-34.0 [facility] Comment on above: Order Comment: Speci men Type: BLOOD SPECIMENOrdering Facility: [facility] Address: [address] [place] [address] Performed By: #### 5 7021-8 ####[facility] [id number] [place] [address] [place] MCHC (RBC) [Mass/Vol] 33.6 g/dL Normal 30.5-36.0 [facility] Comment on above: Order Comment: Speci men Type: BLOOD SPECIMENOrdering Facility: [facility] Address: [address] [place] [address] Performed By: #### 5 7021-8 ####[facility] CHAPELNCLI [id number] [place] [address] [place] MCV (RBC) [Entitic vol] 97.1 fL Normal 80.0-100.0 [facility] Comment on above: Order Comment: Speci men Type: BLOOD SPECIMENOrdering Facility: [facility] Address: [address] [place] [address] Performed By: #### 5 7021-8 ####[facility] ROSANGELAMARQUIS [id number] [place] [address] [place] Monocytes (Bld) [#/Vol] 0.30 10*3/uL Normal <0.87 [facility] Comment on above: Order Comment: Speci men Type: BLOOD SPECIMENOrdering Facility: [facility] Address: [address] [place] [address] Performed By: #### 5 7021-8 ####[facility] CHAPELELISAA [id number] [place] [address] [place] Monocytes/100 WBC (Bld) 2.8 % Normal [facility] Comment on above: Order Comment: Speci men Type: BLOOD SPECIMENOrdering Facility: [facility] Address: [address] [place] [address] Performed By: #### 5 7021-8 ####[facility] CHAPELNCA [id number] [place] [address] [place] Neutrophils (Bld) [#/Vol] 9.10 10*3/uL High 1.45-7.50 [facility] Comment on above: Order Comment: Speci men Type: BLOOD SPECIMENOrdering Facility: [facility] Address: [address] [place] [address] Performed By: #### 5 7021-8 ####[facility] CHAPELNCLIA [id number] [place] [address] [place] Neutrophils/100 WBC (Bld) 84.3 % Normal [facility] Comment on above: Order Comment: Speci men Type: BLOOD SPECIMENOrdering Facility: [facility] Address: [address] [place] [address] Performed By: #### 5 7021-8 ####[facility] ROSANGELAWELISALIA [id number] [place] [address] [place] Nucleated RBC (Bld) [#/Vol] 10*3/uL Normal <0.01 [facility] Comment on above: Order Comment: Speci men Type: BLOOD SPECIMENOrdering Facility: [facility] Address: [address] [place] [address] Performed By: #### 5 7021-8 ####[facility] CHAPELELISALIA [id number] [place] [address] [place] Nucleated RBC/100 WBC (Bld) [Ratio] 0.0 /100 WBC Normal [facility] Comment on above: Order Comment: Speci men Type: BLOOD SPECIMENOrdering Facility: [facility] Address: [address] [place] [address] Performed By: #### 5 7021-8 ####[facility] [id number] [place] [address] [place] Platelet mean volume (Bld) [Entitic vol] 11.1 fL Normal 9.0-12.7 [facility] Comment on above: Order Comment: Speci men Type: BLOOD SPECIMENOrdering Facility: [facility] Address: [address] [place] [address] Performed By: #### 5 7021-8 ####[facility] [id number] [place] [address] [place] Platelets (Bld) [#/Vol] 258 10*3/uL Normal 150-400 [facility] Comment on above: Order Comment: Speci men Type: BLOOD SPECIMENOrdering Facility: [facility] Address: [address] [place] [address] Performed By: #### 5 7021-8 ####[facility] CHAPELNCLIA [id number] [place] [address] [place] RBC (Bld) [#/Vol] 3.80 10*6/uL Low 3.90-5.20 [facility] Comment on above: Order Comment: Speci men Type: BLOOD SPECIMENOrdering Facility: [facility] Address: [address] [place] [address] Performed By: #### 5 7021-8 ####[facility]OSPITALRebeca [id number] [place] [address] [place] WBC (Bld) [#/Vol] 10.78 10*3/uL Normal 3.70-11.00 [facility] Comment on above: Order Comment: Speci men Type: BLOOD SPECIMENOrdering Facility: [facility] Address: [address] [place] [address] Performed By: #### 5 7021-8 ####[facility] [id number] [place] [address] [place] GESTATIONAL GLUCOSE SCREEN, 1-HOUR, 50 GRAM, NON-FASTINGon 01-04-2025 Glucose [Mass/Vol] 172 mg/dL High 74-134 [facility] Comment on above: Order Comment: Speci men Type: BLOOD SPECIMENOrdering Facility: [facility] Address: [address] [place] [address] Result Comment: [employer] [facility] [employer] of Obstetricians and Gynecologists (Horton/Vidya) guidelines state a gestational diabetes mellitus positive screen is made, in women not previously diagnosed with overt diabetes, when the 1 hr plasma glucose level is equal to or above 140 mg/dL. The [facility] [employer] Teacher and [facility] [place] recommends a 135 mg/dL cutoff. Performed By: #### G LTGST ####[facility] [id number] [place] [address] [place] Reagin and Treponema pallidu m IgG and IgM [Interp]on 01-04-2025 T. pallidum IgG+IgM IA Ql (S) Non-Reactive Normal Nonreactive [facility] Comment on above: Order Comment: Speci men Type: BLOOD SPECIMENOrdering Facility: [facility] Address: [address] [place] [address] Performed By: #### 7 3752-8 ####[facility] LABCLIA [id number] [place] [address] [place] Reagin+T pallidum IgG+IgM Se rPl-Impon 01-04-2025 Reagin and Treponema pallidum IgG and IgM [Interp] Cannot exclude recent Treponemal infection if specimen collected within 7-10 days after appearance of suspect lesions or 2-3 weeks after an exposure. Clinical correlation is required. Normal [facility] Comment on above: Order Comment: Speci men Type: BLOOD SPECIMENOrdering Facility: [facility] Address: [address] [place] [address] Performed By: #### 7 3752-8 ####[facility] LABCLIA [id number] [address] [place] CNPNon 12-30-2024 CNPN Telephone ([id number]) -------- LÓPEZ BRAVO ([id number]) 4 F Date Time Provider Department 12/30/24 LIZETH PATEL [id number] During your visit today, we recorded the following information about you: Lizeth Patel RN 12/30/2024 3:22 PM Signed 2nd risk assessment form submitted 12/30/2024. 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 - metoprolol succinate ER (TOPROL XL) 50 mg 24 hr tablet Take 1 tablet by mouth two times a day. - aspirin, enteric coated (ECOTRIN LOW STRENGTH) 81 mg EC tablet Take 1 tablet by mouth once daily. - VITAMIN 27 mg iron- 0.8 mg tablet Take 1 tablet by mouth every afternoon. Problem List As Of Date 12/30/2024 Noted Resolved Supervision of high risk in first tri*09/16/2024 Other specified hypothyroidism [E03.8] 09/16/2024 Tachycardia [R00.0] 09/16/2024 UTI (urinary tract infection) in , ant*09/16/2024 Penicillin allergy [Z88.0] 09/20/2024 Encounter Status:Closed by LIZETH PATEL on 12/30/24 Normal [facility] Examination level ultrasound on 12-20-2024 Indication Standard anatomic survey Limited care Impression The patient is referred for a standard anatomic survey. - Single, live, intrauterine . - biometry is consistent with the established gestational age. - No malformations were visualized on a complete standard anatomic survey. - The amniotic fluid volume is normal amount. - The placenta is posterior, fundal. - Not all structural malformations can be detected by ultrasound examination. Recommendations Growth around 32 weeks Maternal Assessment Height 157 cm Height (ft) 5 ft Height (in) 2 in Physical Exam Initial weight (lb) 162 lb Initial BMI 29.63 kg/m Maternal assessment other: 1 Para 0 REMOTE READ Method Transabdominal ultrasound examination. View: Suboptimal view: limited by late gestational age Villaf[place]te . Number of fetuses: 1 Dating LMP on: 06/22/2024 GA by LMP 25 w + 6 d HOOD by LMP: 03/29/2025 GA by prior assessment 25 w + 6 d HOOD by prior assessment: 03/29/2025 Ultrasound examination on: 12/20/2024 GA by U/S based upon: AC, BPD, Femur, HC GA by U/S 25 w + 5 d HOOD by U/S: 03/30/2025 Assigned: based on stated HOOD, selected on 12/20/2024 Assigned GA 25 w + 6 d Assigned HOOD: 03/29/2025 General Evaluation Cardiac activity present. FHR 139 bpm. movements: present. Presentation: cephalic Placenta: Placental site: posterior, fundal Umbilical cord: Cord vessels: 3 vessel cord Amniotic fluid: Amount of AF: normal amount. MVP 4.7 cm. DONAVON 15.5 cm. Q1 4.3 cm, Q2 3.5 cm, Q3 3.1 cm, Q4 4.7 cm Growth Overview Exam date GA BPD (mm) HC (mm) AC (mm) FL (mm) HL (mm) EFW (g) 12/20/2024 25w 6d 64.4 46% 231.1 26% 217.6 53% 46.4 48% 40.6 10% 852 36% Biometry Standard BPD 64.4 mm 26w 0d 46% Hadlock OFD 79.8 mm 24w 1d 11% Nicolaides HC 231.1 mm 24w 6d 26% Gini Cerebellum tr 30.8 mm 26w 4d 71% Hill AC 217.6 mm 26w 2d 53% Hadlock Femur 46.4 mm 25w 4d 48% Gini Humerus 40.6 mm 24w 4d 10% Gini EFW 852 g 25w 4d 36% Hadlock EFW (lb) 1 lb EFW (oz) 14 oz EFW by: Hadlock (HC-AC-FL) Extended Hand Ii Tube Bender 5.5 mm CM 5.2 mm 19% Nicolaides Extremities / Bony Struc FL / HC 0.20 Other Structures FHR 139 bpm Anatomy Cranium: normal Lateral ventricles: normal Choroid plexus: normal Midline falx: normal Cavum septi pellucidi: normal Cerebellum: normal Cisterna magna: normal Head / Neck Vermis: Normal but not required for a standard anatomy exam Neck: Normal but not required for a standard anatomy exam Nuchal fold: Suboptimally visualized but not required for a standard anatomy scan Lips: normal Profile: Normal but not required for a standard anatomy exam Nose: Normal but not required for a standard anatomy exam Face Maxilla: Normal but not required for a standard anatomy exam Mandible: Normal but not required for a standard anatomy exam Orbits: Normal but not required for a standard anatomy exam Lens: Normal but not required for a standard anatomy exam 4-chamber view: normal RVOT view: normal LVOT view: normal 3-vessel view: normal [id number] view: normal Heart / Thorax Situs: situs solitus (normal) Aortic arch view: Normal but not required for a standard anatomy exam SVC: Normal but not required for a standard anatomy exam IVC: Normal but not required for a standard anatomy exam Cardiac axis: normal Rt lung: Normal but not required for a standard anatomy exam Lt lung: Normal but not required for a standard anatomy exam Diaphragm: Normal but not required for a standard anatomy exam Cord insertion: normal Stomach: normal Kidneys: normal Bladder: normal Genitals: normal Abdomen Abdom. wall: normal Cervical spine: normal Thoracic spine: normal Lumbar spine: normal Sacral spine: normal Arms: normal Legs: normal Rt upper arm: normal Rt forearm: normal Rt hand: normal Rt fingers: normal Lt upper arm: normal Lt forearm: normal Lt hand: normal Lt fingers: normal Rt upper leg: normal Rt lower leg: normal Rt foot: normal Lt upper leg: normal Lt lower leg: normal Lt foot: normal sex: female Wants to know sex: yes Maternal Structures Uterus / Cervix Uterus: Visualized Cervix: Not visualized Ovaries / Tubes / Adnexa Rt ovary: Visualized Lt ovary: Visualized Performed By: Pina Ivy RDMS, RVT Read By: Alba Rodas M.D. MATERNAL MEDICINE [facility] Radiology Study observation (narrative) [facility] [place] 12-09-2024 [facility] Telephone (SHIREEN) -------- LÓPEZ BRAVO ([id number]) 4 F Date Time Provider Department 12/09/24 RICH MURPHY During your visit today, we recorded the following information about you: Rich Murphy MSW 12/09/2024 11:31 AM Signed Yesenia tried call to patient to discuss transportation resource options. No answer and vmail is full. Rich Murphy, [employer] 12/09/2024 11:31 AM Signed Yesenia will send My Chart message with transportation resource info. Allergies As of Date: 12/09/2024 Noted Allergy Reaction AMOXIL (AMOXICILLIN) 09/15/2024 8 - GI Upset Date Reviewed: 10/15/2024 Reviewed by: Stefanie Campbell MD - Fully Assessed Prescriptions as of 12/20/2024 - metoprolol succinate ER (TOPROL XL) 50 mg 24 hr tablet Take 1 tablet by mouth two times a day. - aspirin, enteric coated (ECOTRIN LOW STRENGTH) 81 mg EC tablet Take 1 tablet by mouth once daily. - famotidine (PEPCID) 20 mg tablet Take 20 mg by mouth. - VITAMIN 27 mg iron- 0.8 mg tablet Take 1 tablet by mouth every afternoon. Problem List As Of Date 12/09/2024 Noted Resolved Supervision of high risk in first tri*09/16/2024 Other specified hypothyroidism [E03.8] 09/16/2024 Tachycardia [R00.0] 09/16/2024 UTI (urinary tract infection) in , ant*09/16/2024 Penicillin allergy [Z88.0] 09/20/2024 Encounter Status:Closed by RICH MURPHY on 12/20/[address] [facility] 12-08-2024 [facility] Telephone (CHANTELWShania) -------- LÓPEZ BRAVO ([id number]) 4 F Date Time Provider Department 12/08/24 LIDIA RAZA During your visit today, we recorded the following information about you: Lidia Raza APRN.CNM 12/08/2024 4:11 PM Signed Did patient transfer care? No office visit since 16 weeks. Can you please assist in scheduling soonest appointment this week or find out if she transferred. Would recommend repeat growth US in our office. Measuring behind and recommend follow up US. Lidia Raza APRN.Pina Landrum RN 12/08/2024 4:37 PM Signed Spoke with patient and states she was still planning on continuing care here at [place]. Patient states she has problems with transportation because her mom boyfriend is the only one with a car and he works [employer]. Patient states she also gets sick on the car ride. Discussed with patient possibly getting care in [place] at [employer] office there at it is closer or getting in touch with social work here to help with transportation issues to office. After lengthy discussion with patient and patients mother they would like to speak with social work to see what kind of options are available to help with transportation before making a decision. Discussed with patient that she has not been seen for 8 weeks and that appointments will need to be occurring more frequently the farther along in . Does consult need to be placed? Will route message to GILBERT Mercedes as well. PREETI Orona Erin, MSW 12/13/2024 11:55 AM Signed See Sw 12/09 note regarding response to below message. Lidia Raza APRN.CNM 12/13/2024 12:28 PM Signed Thank you. Please assist patient in getting an appointment and then she can schedule transportation after discussing with medicaid. Thank you, Lidia Raza APRN.Val Adame RN 12/13/2024 4:07 PM Signed Patient scheduled for growth u/s and OB visit on 12/20. Val Liu RN Allergies As of Date: 12/08/2024 Noted Allergy Reaction AMOXIL (AMOXICILLIN) 09/15/2024 8 - GI Upset Date Reviewed: 10/15/2024 Reviewed by: Stefanie Campbell MD - Fully Assessed Primary Visit Diagnosis:Transportation insecurity [Z59.82] Order(s):FLORIST HELPER [CONSULT TO SOCIAL WORK] [] Order #: [id number]: 1 Prescriptions as of 12/13/2024 - metoprolol succinate ER (TOPROL XL) 50 mg 24 hr tablet Take 1 tablet by mouth two times a day. - aspirin, enteric coated (ECOTRIN LOW STRENGTH) 81 mg EC tablet Take 1 tablet by mouth once daily. - famotidine (PEPCID) 20 mg tablet Take 20 mg by mouth. - VITAMIN 27 mg iron- 0.8 mg tablet Take 1 tablet by mouth every afternoon. Problem List As Of Date 12/08/2024 Noted Resolved Supervision of high risk in first tri*09/16/2024 Other specified hypothyroidism [E03.8] 09/16/2024 Tachycardia [R00.0] 09/16/2024 UTI (urinary tract infection) in , ant*09/16/2024 Penicillin allergy [Z88.0] 09/20/2024 Encounter Status:Closed by VAL LIU on 12/13/[address] [facility] 12-06-2024 CNPN Telephone (OBGYWM) -------- LÓPEZ BRAVO ([id number]) 4 F Date Time Provider Department 12/06/24 LIDIA RAZA OBFRANKY During your visit today, we recorded the following information about you: Lizeth Gleason RN 12/06/2024 9:06 AM Signed Received breast pump RX from [employer]. To BLADIMIR to sign. PREETI Cox Trisha, RN 12/06/2024 11:27 AM Signed Signed and faxed. Val Liu RN Allergies As of Date: 12/06/2024 Noted Allergy Reaction AMOXIL (AMOXICILLIN) 09/15/2024 8 - GI Upset Date Reviewed: 10/15/2024 Reviewed by: Stefanie Campbell MD - Fully Assessed Reason for Visit: Breast Pump [Other] Prescriptions as of 12/06/2024 - metoprolol succinate ER (TOPROL XL) 50 mg 24 hr tablet Take 1 tablet by mouth two times a day. - aspirin, enteric coated (ECOTRIN LOW STRENGTH) 81 mg EC tablet Take 1 tablet by mouth once daily. - famotidine (PEPCID) 20 mg tablet Take 20 mg by mouth. - VITAMIN 27 mg iron- 0.8 mg tablet Take 1 tablet by mouth every afternoon. Problem List As Of Date 12/06/2024 Noted Resolved Supervision of high risk in first tri*09/16/2024 Other specified hypothyroidism [E03.8] 09/16/2024 Tachycardia [R00.0] 09/16/2024 UTI (urinary tract infection) in , ant*09/16/2024 Penicillin allergy [Z88.0] 09/20/2024 Encounter Status:Closed by VAL LIU on 12/06/24 [facility] 11-30-2024 CNPN Telephone (OBGYWM) -------- LÓPEZ BRAVO ([id number]) 4 F Date Time Provider Department 11/30/24 STEFANIE CAMPBELL During your visit today, we recorded the following information about you: Lizeth Gleason RN 11/30/2024 10:27 AM Signed 23w0d Patient's mother called and then placed patient on the phone. Patient has vomited a total of 8 times since 5 PM. Able to keep water down as long as she just sips on it. Afebrile. Feels chilled. Mother states that herself, the patient, and her other daughter ate part of a hoagie last night and they all began vomiting later that night. Denies cramping or bleeding. Advised that if she is unable to keep any fluids down for 24 hours to go to ER for IV hydration. Patient to call if she develops bleeding or cramping. Recommended patient introduce bland foods gradually as tolerated. Aware she is over due for OB visit. Mother states they have transportation issues. In the past patient has declined social work contacting her with assistance in finding transportation. Last seen 10/14/24 for 16 week visit. Had anatomy at [place]. Please advise. Please call mother's phone as patient is going to try and get some rest. [phone] PREETI Cox Karmon, MD 11/30/2024 11:31 AM Signed If signs of dehydration then recommend going to ED. MD Bhavin Medina Tara, RN 11/30/2024 2:21 PM Signed Pt's mother notified and stated she did have Pt try a popsicle. Voiced understanding. Lillian Avilez RN Allergies As of Date: 11/30/2024 Noted Allergy Reaction AMOXIL (AMOXICILLIN) 09/15/2024 8 - GI Upset Date Reviewed: 10/15/2024 Reviewed by: Stefanie Campbell MD - Fully Assessed Reason for Visit: OB vomiting [Other] Prescriptions as of 11/30/2024 - metoprolol succinate ER (TOPROL XL) 50 mg 24 hr tablet Take 1 tablet by mouth two times a day. - aspirin, enteric coated (ECOTRIN LOW STRENGTH) 81 mg EC tablet Take 1 tablet by mouth once daily. - famotidine (PEPCID) 20 mg tablet Take 20 mg by mouth. - VITAMIN 27 mg iron- 0.8 mg tablet Take 1 tablet by mouth every afternoon. Problem List As Of Date 11/30/2024 Noted Resolved Supervision of high risk in first tri*09/16/2024 Other specified hypothyroidism [E03.8] 09/16/2024 Tachycardia [R00.0] 09/16/2024 UTI (urinary tract infection) in , ant*09/16/2024 Penicillin allergy [Z88.0] 09/20/2024 Encounter Status:Closed by LILLIAN AVILEZ on 11/30/24 [facility] OB REPEATon 11-25-2024 OB REPE[address] [address] Patient: LÓPEZ BRAVO Phone#: : 2000 Age: 24 Gender: F Pt. Type: Out Account: [id number] Location: 052 Ordering: LIDIA RAZA Exam Date: 11/25/2024/12:56 Family Phys: LIDIA COYNE Charge Code: [id number] Physician: Garrard Order #: [id number] Dose#: PROCEDURE: OB REPEAT ULTRASOUND, TRANSABDOMINAL COMPARISON: [facility], US, OB INITIAL <14 WEEKS, 09/24/2024, 14:47. INDICATIONS: Anatomy TECHNIQUE: Complete sonographic examination for obstetrical and evaluation were completed by transabdominal ultrasound. FINDINGS: NUMBER: Single. POSITION: Breech. AMNIOTIC FLUID VOLUME: Normal for age with DONAVON of 17.5 cm. PLACENTA LOCATION: Posterior without previa, tip is 7.4 cm from the cervical os BIPARIETAL DIAMETER: 20 weeks 6 days, 4.9 cm HEAD CIRCUMFERENCE: 21 weeks 5 days, 19.4 cm ABD CIRCUMFERENCE: 22 weeks 4 days, 17.7 cm FEMUR LENGTH: 22 weeks 5 days, 4.0 cm ESTIMATED WEIGHT: 505.5 g +/- 75.8 g CERVICAL LENGTH: Not well visualized due to empty maternal urinary bladder. HEART RATE: 150 bpm ANATOMY: The following structures are normal for age unless specified below: Nose/lips, ventricles, posterior fossa, C/T/L spine, four extremities, four chamber heart, thorax, abdomen, 3-vessel cord, cord insertion, stomach, kidneys, and bladder. ABNORMALITIES/OTHER: Femur length/head circumference ratio 20.32 (18.40-20.20) CI 69.34 (70.00-86.00) CLINICAL GA: 22 weeks 6 days CLINICAL HOOD: 03/25/2025 ULTRASOUND GA: 22 weeks 0 days ULTRASOUND HOOD: 03/31/2025 CONCLUSION: 1. Single live intrauterine gestation. Head measurements 1-2 weeks smaller than expected. Cephalic index and femur length/head circumference ratios outside of expected ranges. Dictated by: Bailey Rodriguez MD on 11/25/2024 at 16:54 Continued Report - Page 2 of 2 Patient: LÓPEZ BRAVO Phone#: : 2000 Age: 24 Gender: F Pt. Type: Out Account: [id number] Location: 052 Ordering: LIDIA RAZA Exam Date: 11/25/2024/12:56 Family Phys: LIDIA COYNE Charge Code: [id number] Physician: Garrard Order #: [id number] Dose#: Approved by: Bailey Rodriguez MD on 11/25/2024 at 17:02 [facility] CNPNon 11-15-2024 CNPN Telephone (OBGYWM) -------- LÓPEZ BRAVO ([id number]) 4 F Date Time Provider Department 11/15/24 LIDIA RAZA During your visit today, we recorded the following information about you: Lizeth Gleason RN 11/15/2024 4:45 PM Signed 20w6d Patient's anatomy US on 11/23 was only scheduled for 30 min. Our next 60 min opening is 11/30/24. Patient may want to have her anatomy at [place] if they have a sooner visit. If so, she will send us a [employer] message with their fax number. Otherwise she will schedule in our office. Patient lives an hour away and has transportation issues. Advised that we could direct to our social worker clinical for transportation resources. Patient states her mom's friend offered to drive her. PREETI Cox Jennifer, RN 11/16/2024 8:54 AM Signed [facility] [employer] [facility] Lizeth Gleason RN Allergies As of Date: 11/15/2024 Noted Allergy Reaction AMOXIL (AMOXICILLIN) 09/15/2024 8 - GI Upset Date Reviewed: 10/15/2024 Reviewed by: Stefanie Campbell MD - Fully Assessed Reason for Visit: Orders [681] Prescriptions as of 11/16/2024 - metoprolol succinate ER (TOPROL XL) 50 mg 24 hr tablet Take 1 tablet by mouth two times a day. - aspirin, enteric coated (ECOTRIN LOW STRENGTH) 81 mg EC tablet Take 1 tablet by mouth once daily. - famotidine (PEPCID) 20 mg tablet Take 20 mg by mouth. - VITAMIN 27 mg iron- 0.8 mg tablet Take 1 tablet by mouth every afternoon. Problem List As Of Date 11/15/2024 Noted Resolved Supervision of high risk in first tri*09/16/2024 Other specified hypothyroidism [E03.8] 09/16/2024 Tachycardia [R00.0] 09/16/2024 UTI (urinary tract infection) in , ant*09/16/2024 Penicillin allergy [Z88.0] 09/20/2024 Encounter Status:Closed by LIZETH GLEASON on 11/16/24 [facility] CV ECHO COMPLETE CV ECHO COMPLETE [place] [address] Patient: LÓPEZ BRAVO Phone#: : 2000 Age: 24 Gender: F Pt. Type: Out Account: [id number] Location: [facility] Ordering: BARRY LARRY Exam Date: 10/29/2024/14:01 Family Phys: LIDIA COYNE Charge Code: [id number] Physician: Garrard Order #: [id number] Dose#: PROCEDURE: ECHOCARDIOGRAM WITH DOPPLER AND COLOR FLOW HISTORY: Patient is 74-year-old female with tachycardia INDICATIONS: Tachycarida COMPARISON: None. TECHNIQUE: A 2-D ultrasound, color spectral Doppler and M-mode evaluation of the heart and great vessels. PATIENT MEASUREMENTS: Height (in.): 62 BSA: 1.78 Weight (lbs.): 168 BP: 117/74 Junior Media Buyer: CARI M MODE 2D MEASUREMENTS AND CALCULATIONS: LVIDd: 4.68 cm LVIDs: 3.35 cm IVSd: 0.64 cm LVPWd: 0.75 cm LVOT diam: 1.91 cm FS: 28.29 % Ao Root diam: 2.43 cm LA diam: 3.3 cm LA Volume Index: 18.2 mL/m2 LA A4 Area: 13.46 cm2 RA A4 Area: 11.2 cm2 RVDd: 3.5 cm TAPSE: 18.2 mm DOPPLER MEASUREMENTS AND CALCULATIONS MITRAL MV E MAX katrina: 0.54 m/s MV A MAX katrina: 0.34 m/s MV E-A ratio: 1.57 MVA VTI 4.19 cm2 MV V2 max: 0.67 m/s MV max P.81 mm[Hg] Continued Report - Page 2 of 3 Patient: LÓPEZ BRAVO Phone#: : 2000 Age: 24 Gender: F Pt. Type: Out Account: [id number] Location: [facility] Ordering: BARRY LARRY Exam Date: 10/29/2024/14:01 Family Phys: LIDIA Ayo DORETHA Charge Code: [id number] Physician: Garrard Order #: [id number] Dose#: MV V2 mean: 0.52 m/s MV mean P.11 mm[Hg] MV V2 VTI: 12.54 cm MV PHT: 36.99 ms MVA PHT 5.95 cm2 Lat Peak E' Katrina 16 cm/sec Septal Peak E' KATRINA 10 cm/sec E/E' lateral 3.4 E/E' medial 5.2 AORTIC Ao V2 max: 1.07 m/s Ao max P.55 mm[Hg] Ao V2 mean: 0.79 m/s Ao mean P.73 mm[Hg] Ao V2 VTI: 18.50 cm ISATU (V Max): 2.64 cm2 ISATU (VTI): 2.84 cm2 LV V1 Max 0.99 m/s LV V1 Max PG 3.90 mm[Hg] LV V1 Mean PG 2.29 mm[Hg] LV V1 mean 0.72 m/s LV V1 VTI 18.42 cm PULMONIC PA V2 Max 0.94 m/s PA Max PG 3.54 mm[Hg] TRICUSPID TR Max Katrina TR max PG RVSP 2D/M-MODE AND COLOR FLOW LEFT VENTRICLE: Left ventricle is normal in size and thickness. Systolic ejection fraction is 55-60%. There are no regional wall motion abnormality seen. Normal diastolic function. WALL MOTION: 1 - Basal anterior: Normal. 7 - Mid anterior: Normal. 13 - Apical anterior: Normal. 2 - Basal anteroseptal: Normal. 8 - Mid anteroseptal: Normal. 14 - Apical septal: Normal. 3 - Basal inferoseptal: Normal. 9 - Mid inferoseptal: Normal. 15 - Apical inferior: Normal. 4 - Basal inferior: Normal. 10-Mid inferior: Normal. 16 - Apical lateral: Normal. 5 - Basal inferolateral: Normal. 11-Mid inferolateral: Normal. 6 - Basal anterolateral: Normal. 12-Mid anterolateral: Normal. Continued Report - Page 3 of 3 Patient: LÓPEZ BRAVO Phone#: : 2000 Age: 24 Gender: F Pt. Type: Out Account: [id number] Location: [facility] Ordering: BARRY LARRY Exam Date: 10/29/2024/14:01 Family Phys: LIDIA COYNE Charge Code: [id number] Physician: Garrard Order #: [id number] Dose#: RIGHT VENTRICLE: Right ventricle is normal in size and systolic function LEFT ATRIUM: Left atrium is normal size RIGHT ATRIUM: Right atrium is normal size. ATRIAL SEPTUM: There is no large interatrial shunt seen. PFO was not assessed MITRAL VALVE: Mitral valve appears normal structure. There is trivial regurgitation no stenosis seen TRICUSPID VALVE: Tricuspid valve is normal structure. There is trivial regurgitation no stenosis seen AORTIC VALVE: Aortic valve is trileaflet. There is no regurgitation or stenosis seen PULMONIC VALVE: Pulmonic valve is inadequately visualized. Doppler shows no significant regurgitation or stenosis AORTIC ROOT: Aortic root is normal in size. AORTIC ARCH: Aortic arch is normal in size. DESC THORACIC AORTA: Descending aorta is normal in size. Doppler shows normal IVC/SVC: IVC is normal size more than 50% collapse of inspiration. Estimated atrial pressure is 3 mm Hg. PULMONARY VEINS: Normal pulmonic vein flow PERICARDIUM: There is no pericardial effusion seen. CONCLUSION: 1. Left ventricle is normal in size and systolic function. Systolic ejection fraction is 55-60% with normal wall motion. 2. There are no significant valvular dysfunction seen. 3. Right ventricle is normal in size and systolic function 4. TR velocity is inadequate to calculate for right ventricular systolic pressure. Dictated by: ADRIENNE FUNEZ MD on 11/01/2024 at 9:55 Approved by: ADRIENNE FUNEZ MD on 11/01/2024 at 10:16 [facility] CNPNon 10-18-2024 CNPN Telephone (OBGYWM) -------- LÓPEZ BRAVO ([id number]) 4 F Date Time Provider Department 10/18/24 LIDIA RAZA OBGYWShania During your visit today, we recorded the following information about you: Val Liu RN 10/18/2024 12:05 PM Signed 16w6d Patient's mother calling for patient. States patient is requesting letter stating that she is unable to work d/t cardiac history and . She has been so exhausted and sleeping constantly that she has not been working, does not have a job. 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 She did not discuss this at visit last week. Next visit is 11/10/24. PREETI García Jessica, APRN.CNShania 10/18/2024 1:31 PM Signed I am sorry but I am unable to write her off of work. This would need to come from cardiology but not seen in his last note for a recommendation. She has no other medical concerns that would cause her to not be able to work at this time. If desires, can discuss further at a visit. Thank you, Lidia Raza APRN.CNM Allergies As of Date: 10/18/2024 Noted Allergy Reaction AMOXIL (AMOXICILLIN) 09/15/2024 8 - GI Upset Date Reviewed: 10/15/2024 Reviewed by: Stefanie Campbell MD - Fully Assessed Reason for Visit: Patient Request [[id number]] Prescriptions as of 10/21/2024 - metoprolol succinate ER (TOPROL XL) 50 mg 24 hr tablet Take 1 tablet by mouth two times a day. - aspirin, enteric coated (ECOTRIN LOW STRENGTH) 81 mg EC tablet Take 1 tablet by mouth once daily. - famotidine (PEPCID) 20 mg tablet Take 20 mg by mouth. - VITAMIN 27 mg iron- 0.8 mg tablet Take 1 tablet by mouth every afternoon. Problem List As Of Date 10/18/2024 Noted Resolved Supervision of high risk in first tri*09/16/2024 Other specified hypothyroidism [E03.8] 09/16/2024 Tachycardia [R00.0] 09/16/2024 UTI (urinary tract infection) in , ant*09/16/2024 Penicillin allergy [Z88.0] 09/20/2024 Encounter Status:Closed by VAL LIU on 10/19/24 [facility] Telephone (OBGYWM) -------- LÓPEZ BRAVO ([id number]) 4 F Date Time Provider Department 10/15/24 STEFANIE CAMPBELL During your visit today, we recorded the following information about you: Pina Perea RN 10/15/2024 12:40 PM Signed Please call patient and confirm her metoprolol dose. Also recommended an echo. Is she getting that at [facility] or can I order it at [facility]? Thanks! MD Brit Medina Lindsey, RN 10/15/2024 12:40 PM Signed Attempted to contact patient but no answer and unable to leave a message as voicemail box is full. MyChart message sent. PREETI Orona Lindsey, RN 10/15/2024 3:27 PM Signed Patient called back and states she is currently taking Metoprolol 50 mg BID. Patient states she is scheduled for her echocardiogram on 10/27 at [facility]. PREETI Orona Karmon, MD 10/15/2024 3:57 PM Signed Noted. Thanks! Stefanie Campbell MD Allergies As of Date: 10/15/2024 Noted Allergy Reaction AMOXIL (AMOXICILLIN) 09/15/2024 8 - GI Upset Date Reviewed: 10/15/2024 Reviewed by: Stefanie Campbell MD - Fully Assessed Reason for Visit: Follow Up [171] Prescriptions as of 10/15/2024 - metoprolol succinate ER (TOPROL XL) 50 mg 24 hr tablet Take 1 tablet by mouth two times a day. - aspirin, enteric coated (ECOTRIN LOW STRENGTH) 81 mg EC tablet Take 1 tablet by mouth once daily. - famotidine (PEPCID) 20 mg tablet Take 20 mg by mouth. - VITAMIN 27 mg iron- 0.8 mg tablet Take 1 tablet by mouth every afternoon. Problem List As Of Date 10/15/2024 Noted Resolved Supervision of high risk in first tri*09/16/2024 Other specified hypothyroidism [E03.8] 09/16/2024 Tachycardia [R00.0] 09/16/2024 UTI (urinary tract infection) in , ant*09/16/2024 Penicillin allergy [Z88.0] 09/20/2024 Encounter Status:Closed by VAL LIU on 10/15/24 Normal [facility] Bacteria Ur Culton Bacteria identified Cx Nom (U) ORGANISM ID: 1 50,000-<100,000 CFU/ml Normal urogenital delores Normal [facility] Comment on above: Performed By: #### 6 30-4 ####[facility] LABCLIA [id number] [address] STATES OF [facility] CBC W Auto Differential pane l (Bld)on 10-14-2024 Basophils (Bld) [#/Vol] 10*3/uL Normal <0.11 [facility] Comment on above: Order Comment: Speci men Type: BLOOD SPECIMENOrdering Facility: [facility] Address: [address] [place] [address] Performed By: #### 5 7021-8 ####[facility] [id number] [place] [address] [place] Basophils/100 WBC (Bld) 0.2 % Normal [facility] Comment on above: Order Comment: Speci men Type: BLOOD SPECIMENOrdering Facility: [facility] Address: [address] [place] [address] Performed By: #### 5 7021-8 ####[facility] [id number] [place] [address] [place] Differential cell count method Nom (Bld) Auto Normal [facility] Comment on above: Order Comment: Speci men Type: BLOOD SPECIMENOrdering Facility: [facility] Address: [address] [place] [address] Performed By: #### 5 7021-8 ####[facility] [id number] [place] [address] [place] Eosinophils (Bld) [#/Vol] 0.06 10*3/uL Normal <0.46 [facility] Comment on above: Order Comment: Speci men Type: BLOOD SPECIMENOrdering Facility: [facility] Address: [address] [place] [address] Performed By: #### 5 7021-8 ####[facility] [id number] [place] [address] [place] Eosinophils/100 WBC (Bld) 0.6 % Normal [facility] Comment on above: Order Comment: Speci men Type: BLOOD SPECIMENOrdering Facility: [facility] Address: [address] [place] [address] Performed By: #### 5 7021-8 ####[facility] [id number] [place] [address] [place] Erythrocyte distribution width (RBC) [Ratio] 17.1 % High 11.5-15.0 [facility] Comment on above: Order Comment: Speci men Type: BLOOD SPECIMENOrdering Facility: [facility] Address: [address] [place] [address] Performed By: #### 5 7021-8 ####[facility] KINDRAELISALIA [id number] [place] [address] [place] Hematocrit (Bld) [Volume fraction] 37.5 % Normal 36.0-46.0 [facility] Comment on above: Order Comment: Speci men Type: BLOOD SPECIMENOrdering Facility: [facility] Address: [address] [place] [address] Performed By: #### 5 7021-8 ####[facility]EL[facility] [id number] [place] [address] [place] Hemoglobin (Bld) [Mass/Vol] 12.6 g/dL Normal 11.5-15.5 [facility] Comment on above: Order Comment: Speci men Type: BLOOD SPECIMENOrdering Facility: [facility] Address: [address] [place] [address] Performed By: #### 5 7021-8 ####[facility]ELE[facility]ISAL[facility] [id number] [place] [address] [place] Immature granulocytes (Bld) [#/Vol] 0.04 10*3/uL Normal <0.10 [facility] Comment on above: Order Comment: Speci men Type: BLOOD SPECIMENOrdering Facility: [facility] Address: [address] [place] [address] Performed By: #### 5 7021-8 ####[facility] ROSANGELAbArahamNCLIA [id number] [place] [address] [place] Immature granulocytes/100 WBC (Bld) 0.4 % Normal [facility] Comment on above: Order Comment: Speci men Type: BLOOD SPECIMENOrdering Facility: [facility] Address: [address] [place] [address] Performed By: #### 5 7021-8 ####[facility] [id number] [place] [address] [place] Lymphocytes (Bld) [#/Vol] 1.74 10*3/uL Normal 1.00-4.00 [facility] Comment on above: Order Comment: Speci men Type: BLOOD SPECIMENOrdering Facility: [facility] Address: [address] [place] [address] Performed By: #### 5 7021-8 ####[facility] [id number] [place] [address] [place] Lymphocytes/100 WBC (Bld) 17.3 % Normal [facility] Comment on above: Order Comment: Speci men Type: BLOOD SPECIMENOrdering Facility: [facility] Address: [address] [place] [address] Performed By: #### 5 7021-8 ####[facility] [id number] [place] [address] [place] MCH (RBC) [Entitic mass] 30.4 pg Normal 26.0-34.0 [facility] Comment on above: Order Comment: Speci men Type: BLOOD SPECIMENOrdering Facility: [facility] Address: [address] [place] [address] Performed By: #### 5 7021-8 ####[facility] [id number] [place] [address] [place] MCHC (RBC) [Mass/Vol] 33.6 g/dL Normal 30.5-36.0 [facility] Comment on above: Order Comment: Speci men Type: BLOOD SPECIMENOrdering Facility: [facility] Address: [address] [place] [address] Performed By: #### 5 7021-8 ####[facility]CL[facility] [id number] [place] [address] [place] MCV (RBC) [Entitic vol] 90.4 fL Normal 80.0-100.0 [facility] Comment on above: Order Comment: Speci men Type: BLOOD SPECIMENOrdering Facility: [facility] Address: [address] [place] [address] Performed By: #### 5 7021-8 ####[facility] [id number] [place] [address] [place] Monocytes (Bld) [#/Vol] 0.44 10*3/uL Normal <0.87 [facility] Comment on above: Order Comment: Speci men Type: BLOOD SPECIMENOrdering Facility: [facility] Address: [address] [place] [address] Performed By: #### 5 7021-8 ####[facility] [id number] [place] [address] [place] Monocytes/100 WBC (Bld) 4.4 % Normal [facility] Comment on above: Order Comment: Speci men Type: BLOOD SPECIMENOrdering Facility: [facility] Address: [address] [place] [address] Performed By: #### 5 7021-8 ####[facility] [id number] [place] [address] [place] Neutrophils (Bld) [#/Vol] 7.76 10*3/uL High 1.45-7.50 [facility] Comment on above: Order Comment: Speci men Type: BLOOD SPECIMENOrdering Facility: [facility] Address: [address] [place] [address] Performed By: #### 5 7021-8 ####[facility] [id number] [place] [address] [place] Neutrophils/100 WBC (Bld) 77.1 % Normal [facility] Comment on above: Order Comment: Speci men Type: BLOOD SPECIMENOrdering Facility: [facility] Address: [address] [place] [address] Performed By: #### 5 7021-8 ####[facility] ROSANGELAWNCLIA [id number] [place] [address] [place] Nucleated RBC (Bld) [#/Vol] 10*3/uL Normal <0.01 [facility] Comment on above: Order Comment: Speci men Type: BLOOD SPECIMENOrdering Facility: [facility] Address: [address] [place] [address] Performed By: #### 5 7021-8 ####[facility] [id number] [place] [address] [place] Nucleated RBC/100 WBC (Bld) [Ratio] 0.0 /100 WBC Normal [facility] Comment on above: Order Comment: Speci men Type: BLOOD SPECIMENOrdering Facility: [facility] Address: [address] [place] [address] Performed By: #### 5 7021-8 ####[facility] [id number] [place] [address] [place] Platelet mean volume (Bld) [Entitic vol] 11.3 fL Normal 9.0-12.7 [facility] Comment on above: Order Comment: Speci men Type: BLOOD SPECIMENOrdering Facility: [facility] Address: [address] [place] [address] Performed By: #### 5 7021-8 ####[facility] [id number] [place] [address] [place] Platelets (Bld) [#/Vol] 221 10*3/uL Normal 150-400 [facility] Comment on above: Order Comment: Speci men Type: BLOOD SPECIMENOrdering Facility: [facility] Address: [address] [place] [address] Performed By: #### 5 7021-8 ####[facility] [id number] [place] [address] [place] RBC (Bld) [#/Vol] 4.15 10*6/uL Normal 3.90-5.20 [facility] Comment on above: Order Comment: Speci men Type: BLOOD SPECIMENOrdering Facility: [facility] Address: [address] [place] [address] Performed By: #### 5 7021-8 ####[facility] [id number] [place] [address] [place] WBC (Bld) [#/Vol] 10.06 10*3/uL Normal 3.70-11.00 [facility] Comment on above: Order Comment: Speci men Type: BLOOD SPECIMENOrdering Facility: [facility] Address: [address] [place] [address] Performed By: #### 5 7021-8 ####[facility] [id number] [place] [address] [place] HBV surface Ag Ser Qlon HBV surface Ag Ql (S) Negative Normal Negative [facility] Comment on above: Order Comment: Speci men Type: BLOOD SPECIMENOrdering Facility: [facility] Address: [address] [place] [address] Performed By: #### M ICRO, 5195-3, 84520-8, 25473-7 ####[facility] LABCLIA [id number] [place] [address] [place] HCV Ab Ser Qlon 10-14-2024 HCV Ab Ql (S) Negative Normal Negative [facility] Comment on above: Order Comment: Speci men Type: BLOOD SPECIMENOrdering Facility: [facility] Address: [address] [place] [address] Result Comment: The result suggests no evidence of active infection with Hepatitis C virus. Should recent infection be suspected, repeat testing may be considered 4-6 weeks after this draw. Performed By: #### 1 6128-1 ####[facility] LABCLIA [id number] [place] [address] [place] [facility] [place] HIV 1+2 Ab IA Qlon 5 HIV 1 and 2 Ab IA.rapid Nom (S/P/Bld) Normal [facility] Comment on above: Order Comment: Speci men Type: BLOOD SPECIMENOrdering Facility: [facility] Address: [address] [place] [address] Result Comment: Test not indicated. Performed By: #### M ICRO, 5195-3, 22827-6, 16733-0 ####[facility] LABIA [id number] OF [facility] HIV 1+2 Ab+HIV1 p24 Ag IA Ql Non-Reactive Normal Nonreactive [facility] Comment on above: Order Comment: Speci men Type: BLOOD SPECIMENOrdering Facility: [facility] Address: [address] [place] [address] Performed By: #### M ICRO, 5195-3, 37864-1, 90950-0 ####[facility] LABCLIA [id number] [address] [place] HIV immunoassay testing algorithm interpretation (S/P/Bld) [Interp] Normal [facility] Comment on above: Order Comment: Speci men Type: BLOOD SPECIMENOrdering Facility: [facility] Address: [address] [place] [address] Result Comment: No e vidence of HIV-1 or HIV-2 infection. Should recent infection be suspected, repeat testing may be considered 2-3 weeks after this draw. [place] Rev. Code 3701.243(E): This information has been disclosed to you from confidential records protected from disclosure by state law. ???You shall make no further disclosure of this information without the specific, written, and informed release of the individual to whom it pertains or as otherwise permitted by state law. A general authorization for the release of medical or other information is not sufficient for the purpose of the release of HIV test results or diagnoses. Performed By: #### M ICRO, 5195-3, 79817-9, 30671-4 ####[facility] LABCLIA [id number] [place] [address] [place] HbA1c (Bld)on 10-14-2024 Average glucose Estimated from glycated hemoglobin (Bld) [Mass/Vol] 97 mg/dL Normal [facility] Comment on above: Order Comment: Speci men Type: BLOOD SPECIMENOrdering Facility: [facility] Address: [address] [place] [address] Result Comment: eAG: (Estimated average glucose) is a calculated value from HgbA1c and is resources representative of the average blood glucose level in the last 2-3 month period. Performed By: #### 5 5454-3 ####[facility] LABCLIA [id number] [address] [place] HbA1c (Bld) [Mass fraction] 5.0 % Normal 4.3-5.6 [facility] Comment on above: Order Comment: Speci men Type: BLOOD SPECIMENOrdering Facility: [facility] Address: [address] [place] [address] Result Comment: Amer [place] Diabetes Association guidelines indicate that patients with HgbA1c in the range 5.7-6.4% are at increased risk for development of diabetes, and intervention by lifestyle modification may be beneficial. HgbA1c greater or equal to 6.5% is considered diagnostic of diabetes. Performed By: #### 5 5454-3 ####[facility] LABCLIA [id number] [place] [id number] [place] [id number] PLUSon 10-14-2024 Cell-free DNA./Cell-free DNA.total Dosage of chromosome-specific cfDNA (cfDNA) [Molar fraction] 23% Normal [facility] Comment on above: Order Comment: Speci men Type: BLOOD SPECIMENOrdering Facility: [facility] Address: [address] [place] [address] Performed By: #### M AT21 ####[facility] LABCLIA [id number] [place] [address] Chr 13+18+21+X+Y aneuploidy Dosage of chromosome-specific cfDNA Ql (cfDNA) Negative Normal [facility] Comment on above: Order Comment: Speci men Type: BLOOD SPECIMENOrdering Facility: [facility] Address: [address] [place] [address] Performed By: #### M AT21 ####[facility] LABCLIA [id number] [place] [address] Chr 21 trisomy Dosage of chromosome-specific cfDNA Ql (cfDNA) Negative Normal [facility] Comment on above: Order Comment: Speci men Type: BLOOD SPECIMENOrdering Facility: [facility] Address: [address] [place] [address] Performed By: #### M AT21 ####[facility] LABCLIA [id number] [place] [address] Chr X and Y aneuploidy risk Sequencing Ql (cfDNA) [Interp] Not detected Normal [facility] Comment on above: Order Comment: Speci men Type: BLOOD SPECIMENOrdering Facility: [facility] Address: [address] [place] [address] Result Comment: Not Detected Not Detected Performed By: #### M AT21 ####[facility] LABCLIA [id number] [place] [address] Citation Lbian (Reference lab test) Comment Normal [facility] Comment on above: Order Comment: Speci men Type: BLOOD SPECIMENOrdering Facility: [facility] Address: [address] [place] [address] Result Comment: 1. P johnnie SOMERS, et al. Eva Med. 2012;14(3):296-305. 2. Sánchez BREEN et al. Prenat Diag. 2013;33(6):591-597. 3. Jozef C, et al. Clin Chem. 2015 Apr;61(4):608-616. 4. Devante SOMERS, et al. Eva Med. 2011;13(11):913-920. 5. ACOG/SMFM Practice Bulletin No. 226, May 2020. Performed By: #### M AT21 ####[facility] LABCLIA [id number] [place] [address] Gestational age Estimated from conception date [place] Normal [facility] Comment on above: Order Comment: Speci men Type: BLOOD SPECIMENOrdering Facility: [facility] Address: [address] [place] [address] Performed By: #### M AT21 ####[facility] LABCLIA [id number] [place] [address] GESTATIONALAGE AGE > OR = 9W Yes Normal [facility] Comment on above: Order Comment: Speci men Type: BLOOD SPECIMENOrdering Facility: [facility] Address: [address] [place] [address] Performed By: #### M AT21 ####[facility] LABCLIA [id number] [place] [id number] Laboratory comment Liban (Report) Comment Normal [facility] Comment on above: Order Comment: Speci men Type: BLOOD SPECIMENOrdering Facility: [facility] Address: [address] [place] [address] Result Comment: The MaterniT(R) 21 PLUS laboratory-developed test (LDT) analyzes circulating cell-free DNA from a maternal blood sample. This test is used for screening purposes and not diagnostic. Clinical correlation is recommended. Validation data on twin pregnancies is limited and the ability of this test to detect aneuploidy in higher multiple gestations has not yet been validated. Performed By: #### M AT21 ####[facility] LABCLIA [id number] [place] [address] director of strategic initiatives name Nom (Provider) Comment Normal [facility] Comment on above: Order Comment: Speci men Type: BLOOD SPECIMENOrdering Facility: [facility] Address: [address] [place] [address] Result Comment: This specimen showed an expected representation of chromosome 21, 18 and 13 material. Clinical correlation is suggested. Comment Stoney Avery MD, PhD, Director, [employer] Performed By: #### M AT21 ####[facility] LABCLIA [id number] [place] [address] LIMITATIONS OF THE TEST Comment Normal [facility] Comment on above: Order Comment: Speci men Type: BLOOD SPECIMENOrdering Facility: [facility] Address: [address] [place] [address] Result Comment: Jamilah campos the results of these tests are highly reliable, discordant results, including inaccurate sex prediction, may occur due to placental, maternal, or mosaicism or neoplasm; vanishing twin; prior maternal organ transplant; or other causes. These tests are screening tests and not diagnostic; they do not replace the accuracy and precision of diagnosis with CVS or amniocentesis. A patient with a positive test result should be referred for genetic counseling and offered invasive diagnosis for confirmation of test results.[5] The results of this testing, including the benefits and limitations, should be discussed with a qualified healthcare provider. management decisions, including termination of the , should not be based on the results of these tests alone. The healthcare provider is responsible for the use of this information in the management of their patient. Sex chromosomal aneuploidies are not reportable for known multiple gestations. A negative result does not ensure an unaffected nor does it exclude the possibility of other chromosomal abnormalities or defects which are not a part of these tests. An uninformative result may be reported, the causes of which may include, but are not limited to, insufficient sequencing coverage, noise or artifacts in the region, amplification or sequencing bias, or insufficient fraction. These tests are not intended to identify pregnancies at risk for neural tube defects or ventral wall defects. Testing for whole chromosome abnormalities (including sex chromosomes) and for subchromosomal abnormalities could lead to the potential discovery of both and maternal genomic abnormalities that could have major, minor, or no, clinical significance. Evaluating the significance of a positive or a non-reportable result may involve both invasive testing and additional studies on the mother. Such investigations may lead to a diagnosis of maternal chromosomal or subchromosomal abnormalities, which on occasion may be associated with benign or malignant maternal neoplasms. These tests may not accurately identify triploidy, balanced rearrangements, or the precise location of subchromosomal duplications or deletions; these may be detected by diagnosis with CVS or amniocentesis. The ability to report results may be impacted by maternal BMI, maternal weight, maternal systemic lupus erythematosus (SLE) and/or by certain pharmaceutical agents such as low molecular weight heparin (for example: Lovenox(R), Xaparin(R), Clexane(R) and Fragmin(R)). Performed By: #### M AT21 ####[employer] LABCLIA [id number] [place] [address] Monosomy X risk Dosage of chromosome-specific cfDNA Ql (Plasma cell-free+WBC DNA) [Interp] Not detected Normal [facility] Comment on above: Order Comment: Tara barajas Type: BLOOD SPECIMENOrdering Facility: [facility] Address: [address] [place] [address] Performed By: #### M AT21 ####[employer] LABCLIA [id number] [place] [address] NEGATIVE PREDICTIVE VALUE Note Normal [facility] Comment on above: Order Comment: Tara barajas Type: BLOOD SPECIMENOrdering Facility: [facility] Address: [address] [place] [address] Result Comment: The Negative Predictive Value (NPV) for trisomy 21, 18, and 13 is greater than 99%. The NPV for SCA and ESS cannot be calculated as SCA and ESS are only reported when an abnormality is detected. Performed By: #### M AT21 ####[facility] [facility] LABCLIA [id number] [place] [address] PERFORMANCE CHARACTERISTICS Note Normal [facility] Comment on above: Order Comment: Tara barajas Type: BLOOD SPECIMENOrdering Facility: [facility] Address: [address] [place] [address] Result Comment: ! Sex ! Accuracy: 99.4% ! ! ! ! Region (associated syndrome) ! Est. Sens# ! Est. Spec ! ! ! ! Trisomy 21 (Down Syndrome) ! 99.1% ! 99.9% ! ! ! ! Trisomy 18 (Peterson Syndrome) ! >99.9% ! 99.6% ! ! ! ! Trisomy 13 ([place] Syndrome) ! 91.7% ! 99.7% ! ! ! ! Sex Chromosome Aneuploidies## ! 96.2% ! 99.7% ! ! ! * As reported in [facility] database nstd37 [https://www.ncbi.nlm.nih.gov/dbvar/studies/nstd37/ ] # Estimated Sensitivity. Sensitivity estimated across the observed size distribution of each syndrome [per ISCA database nstd37] and across the range of fractions observed in routine clinical NIPT. Actual sensitivity can also be influenced by other factors such as the size of the event, total sequence counts, amplification bias, or sequence bias. ## [place] gestation only. Performed By: #### M AT21 ####[facility] LABCLIA [id number] [place] [address] POSITIVE PREDICTIVE VALUE N/A Normal [facility] Comment on above: Order Comment: Speci men Type: BLOOD SPECIMENOrdering Facility: [facility] Address: [address] [place] [address] Performed By: #### M AT21 ####[facility] LABCLIA [id number] [place] [id number] Reference Lab Test Method Comment Normal [facility] Comment on above: Order Comment: Speci men Type: BLOOD SPECIMENOrdering Facility: [facility] Address: [address] [place] [address] Result Comment: See Notes Circulating cell-free DNA was purified from the plasma component of maternal blood. The extracted DNA was then converted into a genomic DNA library for aneuploidy analysis of chromosomes 21, 18, and 13 via next generation sequencing.[1] Optional findings based on the test order include sex chromosome aneuploidy (SCA)[2], and enhanced sequencing series (ESS)[3], which will only be reported on as an additional finding when an abnormality is detected. SCA testing includes information on X and Y representation, while ESS testing includes deletions in selected regions (22q, 15q, 11q, 8q, 5p, 4p, 1p) and trisomy of chromosomes 16 and 22. Performed By: #### M AT21 ####[facility] LABCLIA [id number] [place] [address] Service comment (Unsp spec) [Interp] Comment Normal [facility] Comment on above: Order Comment: Speci men Type: BLOOD SPECIMENOrdering Facility: [facility] Address: [address] [place] [address] Result Comment: See Notes [employer] is a subsidiary of [employer], using the brand [employer]. This test was developed and its performance characteristics determined by [employer]. It has not been cleared or approved by the Food and Drug Administration. This laboratory is certified under the Clinical Laboratory Improvement Amendments (CLIA) as qualified to perform high complexity clinical laboratory testing and accredited by the [employer] (CAP). If there is future clinical need for adding MaterniT GENOME testing, this specimen will be available until term. [facility] samples will not be retained beyond 60 days. [facility] patients will have to send a new sample for re-sequencing ([facility] Test Code: [id number]). Performed By: #### M AT21 ####[employer] LABCLIA [id number] [place] [address] Sex Dosage of chromosome-specific cfDNA Nom (cfDNA) Comment Normal [facility] Comment on above: Order Comment: Speci men Type: BLOOD SPECIMENOrdering Facility: [facility] Address: [address] [place] [address] Result Comment: Cons istent with Female Performed By: #### M AT21 ####[employer] LABCLIA [id number] [place] [address] Test performance information Liban (Unsp spec) Comment Normal [facility] Comment on above: Order Comment: Speci men Type: BLOOD SPECIMENOrdering Facility: [facility] Address: [address] [place] [address] Result Comment: The performance characteristics of the MaterniT(R) 21 PLUS laboratory-developed test (LDT) have been determined in a clinical validation study with women at increased risk for chromosomal aneuploidy.[1-4] Performed By: #### M AT21 ####[employer] LABCLIA [id number] [place] [address] Trisomy 13 risk Dosage of chromosome-specific cfDNA Ql (cfDNA) [Interp] Negative Normal [facility] Comment on above: Order Comment: Speci men Type: BLOOD SPECIMENOrdering Facility: [facility] Address: [address] [place] [address] Performed By: #### M AT21 ####[employer] LABCLIA [id number] [place] [address] Trisomy 18 risk Dosage of chromosome-specific cfDNA Ql (Plasma cell-free+WBC DNA) [Interp] Negative Normal [facility] Comment on above: Order Comment: Speci men Type: BLOOD SPECIMENOrdering Facility: [facility] Address: [address] [place] [address] Performed By: #### M AT21 ####[employer] LABCLIA [id number] [place] [address] RUBELLA IGG ANTIBODYon 10-14 RUBELLA IGG AB, QUAL Positive Normal Positive [facility] Comment on above: Order Comment: Speci men Type: BLOOD SPECIMENOrdering Facility: [facility] Address: [address] [place] [address] Result Comment: The result suggests recent or past exposure to Rubella virus or history of Rubella vaccination. Positive result may also be seen due to presence of passively-transferred antibodies. Please correlate with patient's history. Performed By: #### R UBIGG ####[facility] LABCLIA [id number] [place] [address] [place] Reagin and Treponema pallidu m IgG and IgM [Interp]on 10-14-2024 T. pallidum IgG+IgM IA Ql (S) Non-Reactive Normal Nonreactive [facility] Comment on above: Order Comment: Speci men Type: BLOOD SPECIMENOrdering Facility: [facility] Address: [address] [place] [address] Performed By: #### M ICRO, 5195-3, 73034-6, 79618-1 ####[facility] LABCLIA [id number] [place] [address] [place] Reagin+T pallidum IgG+IgM Se rPl-Impon 10-14-2024 Reagin and Treponema pallidum IgG and IgM [Interp] Cannot exclude recent Treponemal infection if specimen collected within 7-10 days after appearance of suspect lesions or 2-3 weeks after an exposure. Clinical correlation is required. Normal [facility] Comment on above: Order Comment: Speci men Type: BLOOD SPECIMENOrdering Facility: [facility] Address: [address] [place] [address] Performed By: #### M ARIK, 5195-3, 73831-1, 44511-8 ####[facility] LABCLIA [id number] [place] [address] [place] T4 Free SerPl-mCncon 025 Free T4 [Mass/Vol] 1.0 ng/dL Normal 0.9-1.7 [facility] Comment on above: Order Comment: Tara barajas Type: BLOOD SPECIMENOrdering Facility: [facility] Address: [address] [place] [address] Performed By: #### 3 024-7, 3016-3 ####[facility] H[facility]PITALCLIA [id number] [place] [address] [place] [facility] THYROID PEROXIDASE ANTIBODYo n 10-14-2024 TPO Ab Qn [IU]/mL Normal <5.6 [facility] Comment on above: Order Comment: Tara barajas Type: BLOOD SPECIMENOrdering Facility: [facility] Address: [address] [place] [address] Result Comment: Thyr oid Peroxidase Antibody test is used as an aid in diagnosis of autoimmune thyroid disease. Clinical correlation is required. Performed By: #### M ARIK, 5195-3, 24490-6, 99788-1 ####[facility] LABCLIA [id number] [place] [address] [place] TSH SerPl-aCncon 10-14-2024 TSH Qn 1.740 m[IU]/L Normal 0.270-4.200 [facility] Comment on above: Order Comment: Tara barajas Type: BLOOD SPECIMENOrdering Facility: [facility] Address: [address] [place] [address] Result Comment: If t he patient is , TSH reference range varies by gestational period: First Trimester (weeks 9-12): 0.180-2.990 mIU/L Second Trimester: 0.110-3.980 mIU/L Third Trimester: 0.480-4.710 mIU/L Darrick Ramires et al. A Practical Approach for the Verifications and Determination of Site- and Trimester-Specific Reference Intervals for Thyroid Function tests in . Thyroid, 2019:29:3:412-420. William E, et al. 2017 Guidelines of the [employer] Thyroid Association for the Diagnosis and Management of Thyroid Disease during and the . Thyroid, 2017:27:3:315-389. Performed By: #### 3 024-7, 3016-3 ####[facility] LABORATORYCLIA [id number] [place] [address] [facility] TYPE + SCREEN PRENATALon ABO A Normal [facility] Comment on above: Order Comment: Tara barajas Type: BLOOD SPECIMENOrdering Facility: [facility] Address: [address] [place] [address] Performed By: #### T SPN ####[facility] BLOOD BANKIA [id number] [address] Rh Nom (Bld) Positive Normal [facility] Comment on above: Order Comment: Tara barajas Type: BLOOD SPECIMENOrdering Facility: [facility] Address: [address] [place] [address] Performed By: #### T SPN ####[facility] MA[facility] BLOOD BANKIA [id number] [address] TYPE AND SCREEN EXPIRATION 10/17/2024 22:59 Normal [facility] Comment on above: Order Comment: Tara barajas Type: BLOOD SPECIMENOrdering Facility: [facility] Address: [address] [place] [address] Performed By: #### T SPN ####[facility] MAIN BLOOD BANKCLIA [id number] [place] [id number] [facility] CNPMelida 10-06-2024 CNPN Telephone (OBGYWM) -------- LÓPEZ BRAVO ([id number]) 4 F Date Time Provider Department 10/06/24 LIDIA RAZA During your visit today, we recorded the following information about you: Isis Morse LPN 10/06/2024 4:24 PM Signed Ob patient is 15w1d and called stating that she is scheduled for an ultrasound tomorrow at [facility]. Patient thought the order was for an anatomy ultrasound. Is this an early anatomy ultrasound? Patient cancelled nuchal ultrasound on 09/27/2024 that was scheduled here and order was faxed to [place] and they scheduled patient for tomorrow. Please advise if patient should cancel ultrasound for tomorrow? Lidia Raza APRN.CNM 10/06/2024 4:28 PM Signed The patient was supposed to get a first trimester early anatomy Ultrasound/NST. At her visit we discussed getting US within 1-2 wks of her visit. She is past this at this time and would recommend just waiting till 19-20 weeks for formal US. JONAH Kothari Annalee, LPN 10/06/2024 4:38 PM Signed Patient notified and was told to get labs drawn at [facility] [place] Allergies As of Date: 10/06/2024 Noted Allergy Reaction AMOXIL (AMOXICILLIN) 09/15/2024 8 - GI Upset Date Reviewed: 09/15/2024 Reviewed by: Enrriqeu Muñiz MA - Fully Assessed Reason for Visit: Care [86] Prescriptions as of 10/06/2024 - aspirin, enteric coated (ECOTRIN LOW STRENGTH) 81 mg EC tablet Take 1 tablet by mouth once daily. - famotidine (PEPCID) 20 mg tablet Take 20 mg by mouth. - VITAMIN 27 mg iron- 0.8 mg tablet Take 1 tablet by mouth every afternoon. - metoprolol succinate ER (TOPROL XL) 100 mg Take 1 tablet by mouth every afternoon. Problem List As Of Date 10/06/2024 Noted Resolved Supervision of high risk in first tri*09/16/2024 Other specified hypothyroidism [E03.8] 09/16/2024 Tachycardia [R00.0] 09/16/2024 UTI (urinary tract infection) in , ant*09/16/2024 Penicillin allergy [Z88.0] 09/20/2024 Encounter Status:Closed by ISIS MORSE on 10/06/24 [facility] Tele[facility] (OBGYWM) -------- LÓPEZ BRAVO ([id number]) 4 F Date Time Provider Department 09/27/24 LIDIA RAZA During your visit today, we recorded the following information about you: Lillian Avilez RN 09/27/2024 8:45 AM Signed 13w6d Pt went to [facility] 09/24/24 as advised. US of abdomen completed. Dx UTI. IV fluids given. Nausea medication given. IV antibiotics given. Was in ER for approximately 5 hours. Pt now feeling better, has not vomited since discharged. Denies dysuria. Pt states she was advised to continue taking the PO Keflex as prescribed by Lidia Raza APRN, CNM. Pt calling to cancel appointments for today d/t weather. Pt needs afternoon appointments and asking if Nuchal can be done at [facility]. Pt's next OB appt is currently scheduled 10/12/24. Do you want her scheduled next week, instead of 10/12/24? And is Nuchal able to be completed at ? Please advise. PREETI Patel Jessica, APRN.CNM 09/27/2024 9:19 AM Signed It will not be a nuchal but early anatomy US. I would recommend here but if unable to get in the next week can get at [facility], fax order and recommend within the week. Will need appointment at 16 wk and does not need seen sooner. I was just seeing her after US for labs. She was supposed to get labs done day of US so will still need to complete those and also wanted to follow up her thyroid studies and if she wanted NIPT. Lidia Raza APRN.Lillian Ramey RN 09/27/2024 11:09 AM Signed Pt notified, lab and US orders faxed to [facility]. Pt does want [id number] and interested in knowing gender. Unsure if [facility] does this-Pt is going to call and check and will let office know. Pt also advised to call [facility] to get lab and US appt scheduled for this week and keep OB appt scheduled for 10/12/24. Pt voiced understanding. PREETI Patel Tara, RN 09/29/2024 5:00 PM Signed See Pt's [employer] message on telephone note from 09/24/24. Please sign [id number] order as current order in chart-status is pending future. Once filed, will print and fax order to [facility] and contact Pt. Responded to Pt's [employer] message informing her BLADIMIR does not return to office until Friday. PREETI Patel Lindsey, RN 09/30/2024 3:49 PM Signed Patient notified and voiced understanding. Lab order faxed to [facility]. Pina Perea RN Allergies As of Date: 09/27/2024 Noted Allergy Reaction AMOXIL (AMOXICILLIN) 09/15/2024 8 - GI Upset Date Reviewed: 09/15/2024 Reviewed by: Enrrique Muñiz MA - Fully Assessed Reason for Visit: F/U ER visit [Other] Primary Visit Diagnosis:Encounter for screening of mother [Z36.9] Order(s):[id number] PLUS [SQMAT21] Order #: [id number] FUTURE Prescriptions as of 09/30/2024 - aspirin, enteric coated (ECOTRIN LOW STRENGTH) 81 mg EC tablet Take 1 tablet by mouth once daily. - famotidine (PEPCID) 20 mg tablet Take 20 mg by mouth. - VITAMIN 27 mg iron- 0.8 mg tablet Take 1 tablet by mouth every afternoon. - metoprolol succinate ER (TOPROL XL) 100 mg Take 1 tablet by mouth every afternoon. Problem List As Of Date 09/27/2024 Noted Resolved Supervision of high risk in first tri*09/16/2024 Other specified hypothyroidism [E03.8] 09/16/2024 Tachycardia [R00.0] 09/16/2024 UTI (urinary tract infection) in , ant*09/16/2024 Penicillin allergy [Z88.0] 09/20/2024 Encounter Status:Closed by ALBERT SWIFT on 09/30/24 Normal [facility] CBC + DIFFon 09-24-2024 Baso # 0.02 x10EE3/UL Normal 0.00 - 0.10 [facility] Comment on above: Performed By: #### 2 70348 #### [facility],[address] [place] [address] 29629 Basophils/100 WBC (Bld) 0.2 % Normal 0.0 - 2.0 [facility] Comment on above: Performed By: #### 2 84881 #### [facility],[address] [place], [place] [id number] CBC + DIFF Normal [facility] Comment on above: Result Comment: CBC- COMPLETE BLOOD COUNT Performed By: #### 2 01260 #### [facility],[address] [place] [address] 11172 EO # 0.04 x10EE3/UL Normal 0.00 - 0.50 [facility] Comment on above: Performed By: #### 2 45584 #### [facility],[address] [place] [address] 63054 Eosinophils/100 WBC (Bld) 0.4 % Normal 0.0 - 7.0 [facility] Comment on above: Performed By: #### 2 78634 #### [facility],[address] [place], [place] [id number] Erythrocyte distribution width (RBC) [Ratio] 15.7 % High 12.0 - 15.6 [facility] Comment on above: Performed By: #### 2 45647 #### [facility],[address] [place] [address] 33377 Hematocrit (Bld) [Volume fraction] 39.6 % Normal 34.0 - 46.0 [facility] Comment on above: Performed By: #### 2 31366 #### [facility],[address] [place] [address] 19341 Hemoglobin (Bld) [Mass/Vol] 13.1 g/dL Normal 12.0 - 16.0 [facility] Comment on above: Performed By: #### 2 76257 #### [facility],[address] [place] [address] 12793 Lymph # 1.33 x10EE3/UL Normal 0.80 - 2.80 [facility] Comment on above: Performed By: #### 2 22831 #### [facility],[address] [place] [address] 97511 Lymphocytes/100 WBC (Bld) 12.5 % Low 20.0 - 45.0 [facility] Comment on above: Performed By: #### 2 55638 #### [facility],[address] [place] [address] 74580 MANUAL DIFF N/A Normal [facility] Comment on above: Performed By: #### 2 00697 #### [facility],[address] [place] [address] 38577 MCH (RBC) [Entitic mass] 29 pg Normal 27 - 33 [facility] Comment on above: Performed By: #### 2 83130 #### [facility],[address] [place] [address] 57349 MCHC 33 X10 3 Normal 32 - 36 [facility] Comment on above: Performed By: #### 2 62931 #### [facility],[address] [place] [address] 59536 MCV (RBC) [Entitic vol] 88 fL Normal 80 - 99 [facility] Comment on above: Performed By: #### 2 33581 #### [facility],[address] [place] [address] 24771 Garfield # 0.51 x10EE3/UL Normal 0.20 - 1.00 [facility] Comment on above: Performed By: #### 2 02284 #### [facility],[address] [place] [address] 51703 MONOS % 4.8 % Normal 0.0 - 10.0 [facility] Comment on above: Performed By: #### 2 24350 #### [facility],[address] [place] [address] 45987 Morphology Liban (Bld) [Interp] N/A Normal [facility] Comment on above: Performed By: #### 2 64683 #### [facility],[address] [place] [address] 45845 Neut # 8.71 x10EE3/UL High 1.50 - 7.10 [facility] Comment on above: Performed By: #### 2 81423 #### [facility],[address] [place] [address] 63547 Neutrophils/100 WBC (Bld) 82.1 % High 46.0 - 76.0 [facility] Comment on above: Performed By: #### 2 04719 #### [facility],[address] [place] [address] 02870 PLATELET 244 x10EE3/UL Normal 150 - 450 [facility] Comment on above: Performed By: #### 2 89047 #### [facility],[address] [place] [address] 32590 Platelet mean volume (Bld) [Entitic vol] 9.7 fL Normal 6.6 - 10.5 [facility] Comment on above: Result Comment: AUTO MATED DIFFERENTIAL Performed By: #### 2 13400 #### [facility],[address] [place] [address] 50599 RBC 4.52 x 10EE6/UL Normal 4.10 - 5.30 [facility] Comment on above: Performed By: #### 2 74887 #### [facility],[address] [place] [address] 07157 WBC 10.6 x 10EE3/UL Normal 4.5 - 10.8 [facility] Comment on above: Performed By: #### 2 84039 #### [facility],[address] [place] [address] 78252 CMP with eGFRon 09-24-2024 AGE 24 years Normal [facility] Comment on above: Performed By: #### 2 34159 #### [facility],[address] [place] [address] 28655 Albumin [Mass/Vol] 3.5 g/dL Normal 3.4 - 5.0 [facility] Comment on above: Performed By: #### 2 79696 #### [facility],[address] [place] [address] 92489 Albumin/Globulin [Mass ratio] 0.9 {ratio} Normal 0.9 - 1.6 [facility] Comment on above: Performed By: #### 2 58069 #### [facility],[address] [place] [address] 68968 ALK PHOS 55 U/L Normal 46 - 116 [facility] Comment on above: Performed By: #### 2 88091 #### [facility],[address] [place] [address] 63081 ALT [Catalytic activity/Vol] 47 U/L Normal 16 - 63 [facility] Comment on above: Performed By: #### 2 43166 #### [facility],[address] [place] [address] 89342 Anion gap [Moles/Vol] 19 mmol/L Normal 10 - 20 [facility] Comment on above: Performed By: #### 2 45525 #### [facility],[address] [place] [address] 16762 AST [Catalytic activity/Vol] 21 U/L Normal 13 - 39 [facility] Comment on above: Performed By: #### 2 50796 #### [facility],[address] [place] [address] 79668 B/C RATIO 10 ratio Normal 0 - 30 [facility] Comment on above: Performed By: #### 2 64913 #### [facility],[address] [place] [address] 71536 Bilirubin [Mass/Vol] 0.6 mg/dL Normal 0.2 - 1.0 [facility] Comment on above: Performed By: #### 2 11233 #### [facility],[address] [place] [address] 27876 Calcium [Mass/Vol] 8.9 mg/dL Normal 8.5 - 10.1 [facility] Comment on above: Performed By: #### 2 81907 #### [facility],[address] [place] [address] 09089 Chloride [Moles/Vol] 101 mmol/L Normal 98 - 107 [facility] Comment on above: Performed By: #### 2 36668 #### [facility],[address] [place] [address] 28306 CMP with eGFR Normal [facility] Comment on above: Result Comment: COMP REHENSIVE METABOLIC PANEL Performed By: #### 2 55974 #### [facility],[address] [place] [address] 23286 CO2 [Moles/Vol] 22.0 mmol/L Normal 21.0 - 32.0 [facility] Comment on above: Performed By: #### 2 84528 #### [facility],[address] [place] [address] 46103 Creatinine [Mass/Vol] 0.61 mg/dL Normal 0.55 - 1.02 [facility] Comment on above: Performed By: #### 2 27092 #### [facility],[address] [place] [address] 23818 GFR/1.73 sq M.predicted among non-blacks MDRD (S/P/Bld) [Vol rate/Area] mL/min/{1.73_m2} Normal 60 - 999 [facility] Comment on above: Performed By: #### 2 94108 #### [facility],[address] [place] [address] 45100 Result Comment: ACCO RDING TO THE NATIONAL KIDNEY DISEASE EDUCATION PROGRAM(NKDE), A NORMAL eGFR IS A VALUE GREATER THAN OR EQUAL TO 60 ML/MIN/1.73 SQ METERS. CHRONIC KIDNEY DISEASE: <60mL/MIN/1.73 SQ METERS KIDNEY FAILURE: <15mL/MIN/1.73 SQ METERS THIS TEST SHOULD ONLY BE USED FOR PATIENTS 18 YEARS OF AGE AND OLDER. Globulin (S) [Mass/Vol] 4.1 g/dL High 1.5 - 3.8 [facility] Comment on above: Performed By: #### 2 82846 #### [facility],[address] [place] [address] 55738 Glucose [Mass/Vol] 91 mg/dL Normal 74 - 106 [facility] Comment on above: Performed By: #### 2 87565 #### [facility],[address] [place] [address] 89621 Potassium [Moles/Vol] 3.5 mmol/L Normal 3.5 - 5.1 [facility] Comment on above: Performed By: #### 2 05269 #### [facility],[address] [place] [address] 11243 Protein [Mass/Vol] 7.6 g/dL Normal 6.4 - 8.2 [facility] Comment on above: Performed By: #### 2 45437 #### [facility],[address] [place] [address] 79863 Sodium [Moles/Vol] 138 mmol/L Normal 136 - 145 [facility] Comment on above: Performed By: #### 2 67143 #### [facility],[address] [place] [address] 29760 Urea nitrogen [Mass/Vol] 6 mg/dL Low 7 - 18 [facility] Comment on above: Performed By: #### 2 89292 #### [facility],[address] [place] [address] 19626 Rio 09-24-2024 CNPN Telephone (OBGYWM) -------- MAULIKLÓPEZ ([id number]) 4 F Date Time Provider Department 09/24/24 LIZETH TATE During your visit today, we recorded the following information about you: Val Liu, PREETI 09/24/2024 9:46 AM Signed 13w3d Calling with pelvic and back pain. Pain started yesterday and interrupted her sleep last night. Pain is right lower pelvic/pressure and radiates to bilateral lower back. States the pressure is from UTI symptoms that haven't improved yet with medication. Urinating small frequent amounts only. She is on day 5 of cephalexin for it and feels her symptoms are getting worse. Heating pad helps back. She has to lay still on back for pain to get better. Pain gets severe at times that she has been vomiting d/t it. Missed two doses antibiotic yesterday d/t vomiting. Vomiting only bile yesterday. Should she try a different antibiotic? PREETI García Jennifer, MD 09/24/2024 10:03 AM Signed Sounds like she might have a kidney stone or the start of pyelo. Any fevers? Keflex is susceptible on culture results. A different antibiotic probable won't stay down either. She may need IV hydration and IV/IM antibiotics. I'd recommend ED if she's willing. Lizeth Gleason, PREETI 09/24/2024 10:06 AM Signed Attempted to contact patient. No answer and unable to leave a message. PREETI Cox Tara, RN 09/24/2024 12:31 PM Signed Pt's mother calls-advised her I cannot speak to her without Pt's guidance. Pt got on phone and gave permission to speak to mother. Pt's mother states she can take her tonight after she gets off of work 4:30pm-10:30pm as Pt wants mom to be with her. She states Pt vomited yesterday. Unable to take heart medication d/t nausea. 97.7 temporal thermometer reading per Pt's mother at this time. Pt's been able to drink water only. Pt's mother states Pt will try to take her Metoprolol now and if Pt is unable to keep it down, they will go straight to ER. If Pt is able keep down, she will take Pt to ER after work tonight because Pt wants her to be with her. Strongly advised Pt to go sooner rather than later with history of tachycardia, with likely being dehydrated, and with kidney stone or the start of pyelo, it is essential she be evaluated regina. Pt's mother voiced understanding and stated Pt would be going [facility]. Lillian Avilez RN Allergies As of Date: 09/24/2024 Noted Allergy Reaction AMOXIL (AMOXICILLIN) 09/15/2024 8 - GI Upset Date Reviewed: 09/15/2024 Reviewed by: Enrrique Muñiz MA - Fully Assessed Reason for Visit: Patient Update [1234] Prescriptions as of 09/29/2024 - aspirin, enteric coated (ECOTRIN LOW STRENGTH) 81 mg EC tablet Take 1 tablet by mouth once daily. - famotidine (PEPCID) 20 mg tablet Take 20 mg by mouth. - VITAMIN 27 mg iron- 0.8 mg tablet Take 1 tablet by mouth every afternoon. - metoprolol succinate ER (TOPROL XL) 100 mg Take 1 tablet by mouth every afternoon. Problem List As Of Date 09/24/2024 Noted Resolved Supervision of high risk in first tri*09/16/2024 Other specified hypothyroidism [E03.8] 09/16/2024 Tachycardia [R00.0] 09/16/2024 UTI (urinary tract infection) in , ant*09/16/2024 Penicillin allergy [Z88.0] 09/20/2024 Encounter Status:Closed by VAL LIU on 09/24/24 Normal [facility] ED MED ADMINISTRATION DETAIL on 09-24-2024 ED MED ADMINISTRATION DETAIL [facility] Medication Administration Record [place] [id number] [place] [address] [id number] 09/24/2024 Patient: LÓPEZ BRAVO Sex: Female : 2000 Age: 24y MEASUREMENTS: Wt: 74.8 kg, Ht/Francesco: 62.0 in, BMI: 30.18 ALLERGIES: Penicillins, hpv avccine Medication Ordered Medication Administration Date/Time Zofran IVP 4 mg 16:55 09/24 Zofran IVP 4 mg given via Site# 1. Allergies verified Given (NOW x1) and confirmed 5 rights. IV patency established. IV site checked: no 16:55 09/24/2024 pain, redness, or swelling. IV flushed thoroughly pre-medication Antonino Waller, R.N. administration. IVP given by nurse. Information reviewed with Scanned patient and spouse including reason for taking this medication, signs of allergic reaction and precautions. Verbalizes understanding. - 16:56 Antonino Waller, R.N. IV NS 0.9 % 1000 16:56 09/24 IV NS 0.9 % 1000 mL started in bag#1 1000 mL at Started mL at 999 mL/hr 999 mL/hr via Site# 1. Allergies verified and confirmed 5 rights. IV 16:56 09/24/2024 (NOW x1) patency established. IV site checked: no pain, redness, or swelling. Antoninokarla Waller, R.N. IV flushed thoroughly pre-medication administration. Information Stopped reviewed with patient and spouse including reason for taking this 19:09/24/2024 medication, signs of allergic reaction and precautions. Verbalizes John Booker R.N. understanding. - 16:56 Antonino Waller R.NAlyse Scanned 19:09/24 Medication Discontinued: bag #1 completed. Total amount infused: 1000 mL. IV patency established. IV site checked: no pain, redness, or swelling. IV flushed thoroughly post-medication administration. - 19:51 John Booker R.N. 1 of 2 [facility] Medication Ordered Medication Administration Date/Time CefTRIAXone 16:58 02/14 CefTRIAXone (Rocephin) IVPB 2gm/50ml NS 2 g Started (Rocephin) IVPB started at 100 mL/hr diluted in sodium chloride IVPB 0.9 % 16:58 09/24/2024 2gm/50ml NS 2 g Minibag+ 50 mL via Site# 1. Allergies verified and confirmed 5 Antonino Waller RDeanna. diluted in sodium rights. IV patency established. IV site checked: no pain, redness, or Stopped chloride IVPB 0.9 % swelling. IV flushed thoroughly pre-medication administration. 17:41 09/24/2024 Minibag+ 50 mL at Information reviewed with patient and spouse including reason for Jacob Baron, 100 mL/hr (NOW x1) taking this medication, signs of allergic reaction and precautions. E.M.T.-P. Verbalizes understanding. - 17:01 Antonino Waller RAlyseNAlyse Scanned 17:41 09/24 Medication Discontinued: IV completed. Total amount infused: 50 mL. IV patency established. IV site checked: no pain, redness, or swelling. IV flushed thoroughly post-medication administration. - 17:41 Serge Driver-P. 2 of 2 Normal [facility] ED NURSES CLINICAL NOTEon ED NURSES CLINICAL NOTE Nurse Narrative Nurse Clinical Narrative [address] [address] [id number] 09/24/2024 Patient: LÓPEZ BRAVO Sex: Female : 2000 Age: 24y Primary Insurance: [facility] Policy Number: [id number] Subscriber: Other Disposition: Discharge to Home Disposition Decision Time: 19:22 09/24/2024 Departure Time: 19:50 09/24/2024 TRIAGE Arrived by private vehicle. Historian: (patient). Triage time: 14:16 09/24/2024. Acuity: LEVEL 3. Chief Complaint: (RLQ pain). Onset. (about 3 weeks). ( pt dx with UTI and treated with keflex, became nauseous and unable to take home meds.). The patient has had fatigue, abdominal pain and vomiting. SEPSIS SCREEN: NEGATIVE. SIRS criteria negative. No possible sources of infection. -- 14:09/24/24 MIMI Valdez R.N. 14:09/24/24. BP: 123/78 MAP: 93. HR: 96. RR: 16. O2 saturation: 96% Temperature: 98.3 F. Pain level now 0/10. -- 14:09/24/24 MIMI Valdez R.N. Measurements: 14:09/24/24 Wt: 74.8 kg, Ht/Francesco: 62.0 in, BMI: 30.18 -- 14:09/24/24 MIMI Valdez R.N. Medications: famotidine 20 mg tablet -- 14:09/24/24 MIMI Valdez R.N. metoprolol succinate ER 50 mg tablet,extended release 24 hr -- 14:09/24/24 MIMI Valdez R.N. 1 of 4 Nurse Narrative cephalexin 500 mg capsule -- 14:09/24/24 MIMI Valdez R.N. Vitamin 27 mg iron-0.8 mg tablet -- 14:09/24/24 MIMI Valdez R.N. Allergies: Penicillins -- 14:20 09/24/24 MIMI Valdez R.N. hpv avccine -- 14:09/24/24 MIMI Valdez R.N. Problems: Tachycardia -- 14:09/24/24 MIMI Valdez R.N. ADDITIONAL SURGERIES: no known surgical history -- 14:09/24/24 MIMI Valdez R.N. History 14:09/24/24. SOCIAL HX: Never smoker. No alcohol use or drug use. The patient has not traveled outside the [place] Infectious disease exposure: No infectious disease exposure. ABUSE ASSESSMENT: The patient answered yes to the question(s) Do you feel safe in your home? and no to the question(s) Are you afraid to go home?. SELF HARM ASSESSMENT: Self harm assessment was performed. The patient answered no to the question(s) Have you recently felt down, depressed, or hopeless? and Do you have thoughts of harming or killing yourself?. FALL RISK ASSESSMENT: Fall risk assessment completed. No risk factors identified. -- 14:09/24/24 MIMI Valdez R.N. 14:28 09/24/24. PAST MEDICAL HX: status: currently . In 1st trimester. -- 14:28 09/24/24 MIMI Valdez R.N. Interventions 14:16 09/24/24. To waiting room. -- 14:27 09/24/24 MIMI Valdez R.N. 2 of 4 Nurse Narrative PHYSICAL ASSESSMENT 16:10 09/24/24. (Pt c/o right flank pain, nausea and vomiting since yesterday, reports being treated for a UTI x one week. Pt is currently 13 weeks gestation.). GENERAL / NEURO / PSYCH: Alert. Oriented X 4. Appears in no acute distress. RESPIRATORY: Respirations not labored. Breath sounds within normal limits. CVS: Capillary refill less than 2 seconds. Pulses within normal limits. GI / : The patient has had nausea. Emesis noted. Abdomen soft and normal bowel sounds. No diarrhea. CVA tenderness on the right. SKIN: Skin is warm and dry. -- 16:16 09/24/24 MIMI Waller R.N. NURSING PROGRESS NOTES 14:50 09/24/24. Rounding: Pain: denies pain. Position: states comfortable. Set expectations: advised patient of rounding protocol timing and asked if they needed anything else at this time. -- 14:50 09/24/24 MIMI Sauceda 16:03 09/24/24. Care transferred and report given (Kevan). ( Pt amb to [facility] bed in ED.). -- 16:44 09/24/24 MIMI Hou R.N. 16:10 09/24/24. Patient identifiers checked. Side rails up x 2. Bed placed in lowest position. Brakes of bed on. ( Pt is in ER HW bed, one visitor is at the bedside.). -- 16:29 09/24/24 MIMI Waller R.N. 16:45 09/24/24. Site #1 started via IV in the left antecubital space with a 22g angiocath with aseptic technique and good blood return; 1 attempt. Blood drawn: rainbow set tube(s). Saline lock flushed with 5 mL saline. -- 16:50 09/24/24 MIMI Waller R.NAlyse 16:55 09/24/24. Zofran IVP 4 mg given via Site# 1. Allergies verified and confirmed 5 rights. IV patency established. IV site checked: no pain, redness, or swelling. IV flushed thoroughly pre-medication administration. IVP given by nurse. Information reviewed with patient and spouse including reason for taking this medication, signs of allergic reaction and precautions. Verbalizes understanding. -- 16:56 09/24/24 MIMI Waller R.N. 16:56 09/24/24. IV NS 0.9 % 1000 mL started in bag#1 1000 mL at 999 mL/hr via Site# 1. Allergies verified and confirmed 5 rights. IV patency established. IV site checked: no pain, redness, or swelling. IV fl (more content not included)... Normal [facility] ED ORDER SHEET ([facility] ONLY)on 09-24-2024 ED ORDER SHEET (CPOE ONLY) Order Sheet Order Sheet [address] [place] [address] [id number] 09/24/2024 Patient: LÓPEZ BRAVO Sex: Female : 2000 Age: 24y MEASUREMENTS: Wt: 74.8 kg, Ht/Francesco: 62.0 in, BMI: 30.18 ALLERGIES: Penicillins, hpv avccine MEDICATION/IV/DRIP/FLUID ORDERS Order Description Priority Entered Acknowledged Completed Zofran IVP4 mg (NOW x1) 16:33 09/24/2024 16:35 16:56 Shelly CrewsO. 09/24/2024 09/24/2024 Antonino Sánchez R.N. R.N. IV NS 0.9 %1000 mL at 999 16:33 09/24/2024 16:35 16:56 mL/hr (NOW x1) Nicolasa Zurita D.O. 09/24/2024 09/24/2024 Antonino Sánchez R.N. R.N. CefTRIAXone (Rocephin) IVPB 16:40 09/24/2024 16:49 17:01 2gm/50ml NS2 g diluted in Nicolasa Csernyik, D.O. 09/24/2024 09/24/2024 sodium chloride IVPB 0.9 % Antonino Sánchez Minibag+ 50 mL at 100 mL/hr R.N. R.N. (NOW x1) Reason for ordering with alerts: Does not appear to be a true allergy --16:40 09/24/2024 Nicolasa Zurita D.O. LAB ORDERS Order Description Priority Entered Acknowledged Collected Completed 1 of 3 Order Sheet Urinalysis Stat Stat 14:40 09/24/2024 16:03 09/24/2024 16:03 09/24/2024 Thony Padron Lucas Eastep, Verbal Order, R.N. R.N. Auth by: Nicolasa Zurita D.O. CBC w Diff Stat Stat 16:33 09/24/2024 16:35 09/24/2024 16:49 09/24/2024 Antonino Crews Lucas Eastep, D.O. R.N. R.N. CMP Stat Stat 16:33 09/24/2024 16:35 09/24/2024 16:49 09/24/2024 Antonino Crews Lucas Eastep, D.O. R.N. R.N. Lipase Stat Stat 16:33 09/24/2024 16:35 09/24/2024 16:49 09/24/2024 Antonino Crews Lucas Eastep, D.O. R.N. R.N. Flu Swab (Influenzae Stat 16:33 09/24/2024 16:35 09/24/2024 16:49 09/24/2024 AAg) Stat Antonino Crews Lucas Eastep, D.O. R.N. R.N. DIAGNOSTIC STUDY ORDERS Order Description Priority Entered Acknowledged Completed US OB<14WK Single Gestation Stat 14:40 09/24/2024 16:03 16:03 Stat Abdulaziz Valdez R.N. 09/24/2024 09/24/2024 Verbal Order, Auth by: Antonino Sánchez Eric Csernyik, D.O. R.N. RRadha Reason for Study: Pain US Kidneys Stat Stat 14:40 09/24/2024 16:03 16:03 Abdulaziz Valdez R.N. 09/24/2024 09/24/2024 Verbal Order, Auth by: Antonino Sánchez Eric Csernyik, D.O. R.NAlyse RRadha 2 of 3 Order Sheet Reason for Study: Pain STAFF ORDERS Order Description Priority Entered Acknowledged Collected Completed IV Saline Lock 16:33 09/24/2024 16:35 09/24/2024 16:49 09/24/2024 Antonino Crews Lucas Eastep, D.O. R.N. RRadha PO Fluids Stat; Stat 16:42 09/24/2024 16:49 09/24/2024 17:32 09/24/2024 (water/gatorade/popsicle ) Antonino Crews Lucas Eastep, D.O. R.NAlyse RAlsyeNAlyse [Electronically signed by Nicolasa Zurita D.O. (09/24/2024 16:34 EST)] [Electronically signed by Nicolasa Zurita D.O. (09/24/2024 16:40 EST)] [Electronically signed by Nicolasa Zurita D.O. (09/24/2024 16:42 EST)] 3 of 3 Normal [facility] ED PHYSICIAN CLINICAL REPORT on 09-24-2024 ED PHYSICIAN CLINICAL REPORT Narrative Physician Clinical Narrative [address] [address] [id number] 09/24/2024 Patient: LÓPEZ BRAVO Sex: Female : 2000 Age: 24y Primary Insurance: [facility] Policy Number: [id number] Subscriber: Other Disposition: Discharge to Home Disposition Decision Time: 19:22 09/24/2024 Departure Time: 19:50 09/24/2024 Measurements Wt: 74.8 kg, Ht/Francesco: 62.0 in, BMI: 30.18 Initial Vital Sign Measured Time BP MAP HR RR O2Sat ETCO2 Temp Pain GCS RTS 14:23 09/24/2024 123/78 93 96 16 96% 98.3 F 0 Time Seen: 16:02 09/24/2024. Arrived- By private vehicle. Historian- patient. HISTORY OF PRESENT ILLNESS Chief Complaint: ABDOMINAL PAIN and FLANK PAIN. It is described as pain and it is described as located in the right flank and the right abdomen. (Has known UTI on cephalexin. Nausea and vomiting x 2 yesterday). Is still present. The patient has had nausea and loss of appetite. The patient has had mild vomiting (2 episodes yesterday, one episode today). The vomiting has occurred twice. It has been similar to previous episodes. No blood-tinged emesis, coffee-grounds emesis, frankly bloody emesis or unusually dark emesis. No diarrhea. ( 1 para 0, EDC Mar 25, 2025). No recent travel. REVIEW OF SYSTEMS 1 of 16 Narrative THROAT: No sore throat. NEUROLOGICAL: No headache. : The patient has had pain on urination and urinary frequency. Currently : EDC:March 25 2025, In 1st trimester. confirmed with sonogram. Has had care in clinic. G 1. P 0. Ab 0. GI: No constipation, black stools or hematemesis. CVS: No chest pain. EYES: No blurred vision. PAST HISTORY See nurses notes. Tachycardia Surgeries: no known surgical history Medications: cephalexin 500 mg capsule famotidine 20 mg tablet metoprolol succinate ER 50 mg tablet,extended release 24 hr Vitamin 27 mg iron-0.8 mg tablet Allergies: hpv avccine Penicillins SOCIAL HISTORY Never smoker. No alcohol use or drug use. No recent travel. FAMILY HISTORY Negative. ADDITIONAL NOTES The nursing notes have been reviewed with agreement regarding the chief complaint, PMH and patient medications and allergies. 2 of 16 Narrative PHYSICAL EXAM Vital Signs: Have been reviewed. Appearance: Alert. Oriented X3. No acute distress. Eyes: Pupils equal, round and reactive to light. Eyes normal inspection. ENT: Ears normal. Nose normal. Pharynx normal. No pharyngeal erythema or tonsillar exudate. The mucous membranes are not dry. Neck: Normal inspection. Neck supple. CVS: Normal heart rate and rhythm. Heart sounds normal. Pulses normal. Respiratory: No respiratory distress. Painless inspiration. Breath sounds normal. Chest nontender. Abdomen: Soft and nontender. Bowel sounds normal. No organomegaly. No mass. Femoral pulses equal. No rebound tenderness, distention, mass present or guarding. The bowel sounds are not abnormal. Back: Normal inspection. Mild CVA tenderness on the right. Skin: Skin warm and dry. Normal skin color. No rash. Normal skin turgor. Extremities: Extremities exhibit normal ROM. No lower extremity edema. Neuro: Oriented X 3. No motor deficit. No sensory deficit. LABS, X-RAYS, AND EKG 12-LEAD EKG: EKG time: 14:11 09/24/2024. Normal sinus rhythm. Rate: 96. Normal P waves. Normal SKYLAR. Normal QRS complex. Normal axis. Normal ST and T waves and QT. The study has been interpreted contemporaneously by me. The study has been independently viewed by me. The EKG appears to be a good tracing. I agree with and confirm the computer reading of the EKG. Interpretation time: late entry - 14:20 09/24/2024. Laboratory Tests: URINALYSIS Final JUANI: 09/24/2024 14:54:00 EST MsgRcvd: 09/24/2024 15:15 EST Lab Test Result Reference Status Received Comments 09/24/2024 15:15 URINALYSIS Final URINALYSIS EST 09/24/2024 15:15 Specimen Type R New Order EST 3 of 16 Narrative Lab Test Result Reference Status Received Comments NORMAL: 09/24/2024 15:15 Color brown Final YELLOW EST SL. CLOUDY NORMAL: 09/24/2024 15:15 Clarity Final Abnormal CLEAR EST NORMAL: 09/24/2024 15:15 ph 5 Final 5.0-8.0 EST 30 NORMAL: 09/24/2024 15:15 Protein Final Abnormal NEGATIVE EST NORMAL: 09/24/2024 15:15 Glucose NORM Final NORMAL EST 150 NORMAL: 09/24/2024 15:15 Ketone Final Abnormal NEGATIVE EST 1 NORMAL: 09/24/2024 15:15 Bilirubin Final Abnormal NEGATIVE EST 150 NORMAL: 09/24/2024 15:15 Blood Final Abnormal NEGATIVE EST 1 NORMAL: 09/24/2024 15:15 Urobilinog Final Abnormal NORMAL EST NORMAL: 09/24/2024 15:15 Sp [place] 1.030 Final 1.010-1.030 EST NORMAL: 09/24/2024 15:15 Nitrite NEG Final NEGATIVE EST 500 NORMAL: 09/24 (more content not included)... Normal [facility] ED SUPER BILLon 09-24-2024 ED [facility]PER [facility]ILL [facility] [address] [address] [id number] 09/24/2024 Patient: LÓPEZ BRAVO Sex: Female : 2000 Age: 24y Item Facility Professional Category Description Code Code Quantity Fee Total Drugs Normal Saline 033776 1 $0.00 $0.00 1000cc (354057) Nurse/E/M EMERGENCY 867884 1 $0.00 $0.00 DEPARTMENT VISIT HIGH/URGENT SEVERITY (51971-18) Nurse/IV/IM/Infusions Drip/IVPB initial 263953 1 $0.00 $0.00 (08636) Nurse/IV/IM/Infusions Hydration 754477 2 $0.00 $0.00 additional hour (64138) Nurse/IV/IM/Infusions IVP additional 314627 1 $0.00 $0.00 push (71166) Grand Total $0.00 Providers Nicolasa Zurita D.O. 1 of 2 [facility] Chief Complaint ABDOMINAL PAIN and FLANK PAIN. Principal Diagnosis First trimester . Acute urinary tract infection with cystitis. No pyelonephritis or hematuria. Not associated with indwelling catheter. ICD-10 Codes N30.90: Cystitis, unspecified without hematuria Z34.91: Encounter for supervision of normal , unspecified, first trimester Z3A.00: Weeks of gestation of not specified 2 of 2 Normal [facility] ED VISIT SUMMARYon ED VISIT SUMMARY Visit Overview Visit Overview [address] [address] [id number] 09/24/2024 Patient: LÓPEZ BRAVO Sex: Female : 2000 Age: 24y 09/24/2024 08:47 PM EST ED Arrival:13:50 09/24/2024 EST Status: Recent Travel:no Language:eng Adv Directive: Isolation Status: Ethnicity:N Fall Risk:no risk Infectious Disease Exposure:no Measurements:5'2 / 157.5 Self-Harm Status:risk Sepsis Screen:negative cm 165.0 lb / 74.8 kg Chief Complaint:(about 3 weeks), (pt dx with UTI and treated with keflex, became nauseous and unable to take home meds.), and (RLQ pain) ALLERGIES hpv avccine Penicillins HOME MEDICATIONS cephalexin 500 mg capsule famotidine 20 mg tablet metoprolol succinate ER 50 mg tablet,extended release 24 hr 1 3 Visit Overview Vitamin 27 mg iron-0.8 mg tablet PAST MEDICAL HISTORY / PROBLEMS status: currently . In 1st trimester See nurses notes Tachycardia PAST SURGICAL HISTORY No Surgeries SOCIAL HISTORY Smoking status: No Alcohol use: No Drug use: No ED COURSE MEDICATIONS GIVEN IN EMERGENCY DEPARTMENT 16:55 09/24/24 Zofran IVP 4 mg 16:56 09/24/24 IV NS 0.9 % 1000 mL 999 mL/hr CefTRIAXone (Rocephin) IVPB 2gm/50ml NS 2 g diluted in sodium chloride IVPB 0.9 16:58 09/24/24 % Minibag+ 50 mL 100 mL/hr IV SITE INFORMATION INTAKE OUTPUT REASSESMENT (most recent) 16:10 09/24/24. (Pt c/o right flank pain, nausea and vomiting since yesterday, reports being treated for a UTI x one week. Pt is currently 13 weeks gestation.). GENERAL / NEURO / PSYCH: Alert. Oriented X 4. Appears in no acute distress. RESPIRATORY: Respirations not labored. Breath sounds within normal limits. CVS: Capillary refill less than 2 seconds. Pulses within normal limits. GI / : The patient has had nausea. Emesis noted. Abdomen soft and normal bowel sounds. No diarrhea. CVA tenderness on the right. SKIN: Skin is warm and dry. 3 Visit Overview VITAL SIGNS First Vitals Last Vitals Temp 14:23 09/24/24 98.3 F Temp 19:41 09/24/24 BP 14:09/24/24 123/78 BP 19:41 09/24/24 122/72 HR 14:09/24/24 96 HR 19:09/24/24 67 RR 14:23 09/24/24 16 RR 19:41 09/24/24 18 O2 Sat 14:23 09/24/24 96% O2 Sat 19:41 09/24/24 98% Pain 14:23 09/24/24 0 Pain 19:41 09/24/24 ETCO2 14:23 09/24/24 ETCO2 19:41 09/24/24 GCS 14:23 09/24/24 GCS 19:41 09/24/24 RTS 14:23 09/24/24 RTS 19:41 09/24/24 PROCEDURES NURSING INTERVENTIONS LABS / STUDIES LABS / STUDIES ORDERED CBC w Diff CMP Flu Swab (Influenzae AAg) Lipase Urinalysis US Kidneys US OB<14WK Single Gestation CLINICAL IMPRESSION ACUTE URINARY TRACT INFECTION WITH CYSTITIS. NO PYELONEPHRITIS OR HEMATURIA. NOT ASSOCIATED WITH INDWELLING CATHETER FIRST TRIMESTER 3 of 3 Normal [facility] ED VITALS FLOW SHEETon 09-24 ED VITALS FLOW SHEET Vitals Vital Sign Flow Sheet [address] [place] [address] [id number] 09/24/2024 Patient: LÓPEZ BRAVO Sex: Female : 2000 Age: 24y Measurements Wt: 74.8 kg, Ht/Francesco: 62.0 in, BMI: 30.18 Measured Time BP MAP HR RR O2Sat ETCO2 Temp Pain GCS RTS 19:41 09/24/2024 122/72 89 67 18 98% 14:23 09/24/2024 123/78 93 96 16 96% 98.3 F 0 1 of 1 Normal [facility] INFLUENZA VIRUS RAPID A/Bon 09-24-2024 INFLUENZA VIRUS RAPID A/B INFLUENZA A NEGATIVE INFLUENZA B NEGATIVE INTERNAL NEG QC PASS INTERNAL POS QC PASS EXTERNAL QC DONE? YES SEND TO IC? NO A NEGATIVE TEST RESULT DOES NOT EXCLUDE INFECTION WITH INFLUENZA A OR B. THEREFORE, THE RESULTS OBTAINED FROM THIS FLU TEST SHOULD BE USED IN CONJUCTION WITH CLINICAL FINDINGS TO MAKE AN ACCURATE DIAGNOSIS. A POSITIVE RESULT DOES NOT RULE OUT CO-INFECTIONS WITH OTHER PATHOGENS OR IDENTIFY ANY SPECIFIC INFLUENZA A VIRUS SUBTYPE.CO-INFECTION WITH INFLUENZA A AND B IS RARE. IT IS RECOMMENDED THAT DUAL POSITIVE RESULTS BE CONFIRMED BY VIRAL CULTURE OR AN FDA-CLEARED INFLUENZA A AND B MOLECULAR ASSAY. INDIVIDUALS WHO HAVE RECEIVED NASALLY ADMINISTERED INFLUENZA A VACCINE MAY TEST POSITIVE IN COMMERCIALLY AVAILABLE INFLUENZA RAPID DIAGNOSTIC TESTS FOR UP TO THREE DAYS. RESULT CRITICAL? NO Normal [facility] Comment on above: Performed By: #### [id number] ####[facility],[address] [place] [address] LIPASEon 09-24-2024 Lipase [Catalytic activity/Vol] 29.0 U/L Normal 15.0 - 78.0 [facility] Comment on above: Result Comment: *PLE ASE NOTE THAT RANGES FOR LIPASE HAVE CHANGED OF 08/08/23 DUE TO AN ASSAY UPDATE BY THE 4TH GRADE TEACHER.THE NEW ASSAY RANGE IS 6-250 U/L, WITH A REFERENCE RANGE OF 16-77 U/L. Performed By: #### 2 [id number] #### [facility],[address] [place] [address] URINALYSISon 09-24-2024 Amorphous NONE Normal [facility] Comment on above: Performed By: #### 2 [id number] #### [facility],[address] [place] [address] Bacteria TRACE Normal [facility] Comment on above: Performed By: #### 2 [id number] #### [facility],[address] [place] [address] Bilirubin Ql (U) 1 Abnormal NORMAL: NEGATIVE [facility] Comment on above: Performed By: #### 2 [id number] #### [facility],[address] [place] [address] Casts NONE Normal [facility] Comment on above: Performed By: #### 2 [id number] #### [facility],[address] [place] [address] Clarity (U) SL. CLOUDY Abnormal NORMAL: CLEAR [facility] Comment on above: Performed By: #### 2 [id number] #### [facility],[address] [place] [address] Color (U) brown Normal NORMAL: YELLOW [facility] Comment on above: Performed By: #### 2 [id number] #### [facility],[address] [place] [address] Crystals LM Nom (Urine sed) NONE Normal [facility] Comment on above: Performed By: #### 2 [id number] #### [facility],[address] [place] [address]709 Epi Cells FEW Normal [facility] Comment on above: Performed By: #### 2 [id number] #### [facility],[address] [place] [address] Glucose Ql (U) NORM Normal NORMAL: NORMAL [facility] Comment on above: Performed By: #### 2 [id number] #### [facility],[address] [place] [address] Hemoglobin Ql (U) 150 Abnormal NORMAL: NEGATIVE [facility] Comment on above: Performed By: #### 2 [id number] #### [facility],[address] [place] [address] Ketone 150 Abnormal NORMAL: NEGATIVE [facility] Comment on above: Performed By: #### 2 [id number] #### [facility],[address] [place] [address]8460 Leukocytes 500 Abnormal NORMAL: NEGATIVE [facility] Comment on above: Performed By: #### 2 [id number] #### [facility],[address] [place] [address] Mucous NONE Normal [facility] Comment on above: Performed By: #### 2 [id number] #### [facility],[address] [place] [address] Nitrite Ql (U) Negative Normal NORMAL: NEGATIVE [facility] Comment on above: Performed By: #### 2 [id number] #### [facility],[address] [place] [address] 22902 pH (U) 5 [pH] Normal NORMAL: 5.0-8.0 [facility] Comment on above: Performed By: #### 2 [id number] #### [facility],[address] [place] [address] Protein Ql (U) 30 Abnormal NORMAL: NEGATIVE [facility] Comment on above: Performed By: #### 2 39698 #### [facility],[address] [place] [address] Rbc 5-10 Normal 0-3/hpf [facility] Comment on above: Performed By: #### 2 76784 #### [facility],[address] [place] [address] Sp [place] 1.030 Normal NORMAL: 1.010-1.030 [facility] Comment on above: Performed By: #### 2 96314 #### [facility],[address] [place] [address] Specimen Type R Normal [facility] Comment on above: Performed By: #### 2 35690 #### [facility],[address] [place] [address] Urinalysis dipstick W Reflex Microscopic panel (U) SEE BELOW Normal [facility] Comment on above: Result Comment: MICR OSCOPIC Performed By: #### 2 [id number] #### [facility],[address] [place] [address] Urobilinog 1 Abnormal NORMAL: NORMAL [facility] Comment on above: Performed By: #### 2 46256 #### [facility],[address] [place] [address] Wbc 11-15 Normal 0-5/hpf [facility] Comment on above: Performed By: #### 2 85934 #### [facility],[address] [place] [address] Yeast NONE Normal [facility] Comment on above: Performed By: #### 2 61489 #### [facility],[address] [place] [address] US KIDNEYon 09-24-[address] [address] Patient: LÓPEZ BRAVO Phone#: : 2000 Age: 24 Gender: F Pt. Type: ER Account: [id number] Location: 052 Ordering: [employer] Exam Date: 09/24/2024/15:04 Family Phys: LIDIA COYNE Charge Code: [id number] Physician: Garrard Order #: [id number] Dose#: PROCEDURE: KIDNEY ULTRASOUND COMPARISON: None. INDICATIONS: Back pain, UTI TECHNIQUE: Ultrasound examination was performed of the kidneys and bladder. FINDINGS: RIGHT KIDNEY: There is mild right hydronephrosis. The proximal right ureter is 11 millimeters in diameter. Right kidney is 9.2 x 4.5 x 5.1 centimeters. LEFT KIDNEY: Normal. Age-appropriate size and echotexture. Left kidney size 9.9 x 5.5 x 4.0 cm. No mass or obstruction. OTHER: Gallbladder calculi are present. Concrete Pipe Maker calculus is 8 millimeters. CONCLUSION: 1. Mild right-sided hydronephrosis. 2. Cholelithiasis. Dictated by: Pearl Hartman MD on 09/24/2024 at 15:21 Approved by: Pearl Hartman MD on 09/24/2024 at 15:23 Normal [facility] US OB INITIAL< 14 WEEKS; 1st GESTATIONon 09-24-2024 US OB INITIAL< 14 WEEKS; [address]st [address] [address] Patient: LÓPEZ BRAVO Phone#: : 2000 Age: 24 Gender: F Pt. Type: ER Account: [id number] Location: 052 Ordering: NICOLASA CSERNYIK Exam Date: 09/24/2024/14:47 Family Phys: LIDIA COYNE Charge Code: 601268 Physician: Garrard Order #: [id number] Dose#: PROCEDURE: OB INITIAL <14 WEEKS ULTRASOUND, TRANSABDOMINAL COMPARISON: None. INDICATIONS: Back pain TECHNIQUE: Transabdominal pelvic ultrasound examinations were performed. FINDINGS: GESTATIONAL SAC: Present and normal appearing. POLE: Present and normal appearing. YOLK SAC: Not present CARDIAC ACTIVITY: Present. 141 BPM UTERUS: Normal. ADNEXAE/OVARIES: Normal. 12 millimeter right cyst is present CUL-DE-SAC: Normal. CERVICAL LENGTH: Not applicable there is CLINICAL AGE: 14 weeks 0 days. SONOGRAPHIC AGE: 13 weeks 6 days. PLACENTA: Posterior AMNIOTIC FLUID VOLUME: Normal for age. OTHER: Is no evidence of enlarged inflamed appendix. CONCLUSION: 1. SL IUP 13 weeks 6 days, HOOD March 26, 2025 2. There is no evidence of inflammatory changes of the appendix. Dictated by: Pearl Hartman MD on 09/24/2024 at 15:24 Approved by: Pearl Hartman MD on 09/24/2024 at 15:33 Normal [facility] -------- LÓPEZ BRAVO ([id number]) 4 F Date Time Provider Department 09/16/24 [facility] During your visit today, we recorded the following information about you: Jeffery Garza, RN 09/16/2024 8:51 AM Signed 1st risk assessment form submitted 09/16/24 Jeffery Garza RN Allergies As of Date: 09/16/2024 Noted Allergy Reaction AMOXIL (AMOXICILLIN) 09/15/2024 8 - GI Upset Date Reviewed: 09/15/2024 Reviewed by: Enrrique Muñiz MA - Fully Assessed Reason for Visit: PRAF [4193] Prescriptions as of 09/16/2024 - aspirin, enteric coated (ECOTRIN LOW STRENGTH) 81 mg EC tablet Take 1 tablet by mouth once daily. - famotidine (PEPCID) 20 mg tablet Take 20 mg by mouth. - VITAMIN 27 mg iron- 0.8 mg tablet Take 1 tablet by mouth every afternoon. - metoprolol succinate ER (TOPROL XL) 100 mg Take 1 tablet by mouth every afternoon. Problem List As Of Date: 09/16/2024 (None) Encounter Status:Closed by JEFFERY GARZA on 09/16/24 [facility] Telephone (OBGYWM) -------- LÓPEZ BRAVO ([id number]) 4 F Date Time Provider Department 09/16/24 LIDIA RAZA During your visit today, we recorded the following information about you: Lillian Avilez RN 09/16/2024 10:25 AM Signed Lidia Raza APRN.CNM P [facility] Ob-Telephone Sterilizer Pool Patient seen at [facility] yesterday. Can we please request records. I asked patient to request them to be sent but just want to make sure we get them. Thank you, JONAH Kothari Tara, RN 09/16/2024 10:57 AM Addendum Called Pt to see if she had requested records be sent to our office after cardiology visit yesterday. Pt stated she did. Pt then began to elaborate how she was so pleased with the kindness of our office, but was very displeased with the care she received from [facility], specifically Dr. Larry. She felt like she was not being listened to, said he seemed to be slightly argumentative with her mother and boyfriend, and just overall was not kind. She States he has continued her aspirin, Pepcid, and has decreased her Metoprolol to 50mg in the morning and 50mg at night. Apologized to patient for her experience with [facility] and advised her to talk to [facility] Nena if she felt she was dissatisfied with her care. Called [facility] and records will be faxed to our office. PREETI Patel Tara, RN 09/16/2024 10:57 AM Signed Cardiology records received from visit on 09/15/24 and placed in BLADIMIR inbox for review. PREETI Patel Jessica, APRN.CNM 09/16/2024 11:49 AM Signed Thank you, I will review at this time. JONAH Kothari Tara, RN 09/17/2024 4:26 PM Signed Records placed in scanning. Lillian Avilez RN Allergies As of Date: 09/16/2024 Noted Allergy Reaction AMOXIL (AMOXICILLIN) 09/15/2024 8 - GI Upset Date Reviewed: 09/15/2024 Reviewed by: Enrrique Muñiz MA - Fully Assessed Reason for Visit: Cardiology appointment [Other] Prescriptions as of 09/17/2024 - aspirin, enteric coated (ECOTRIN LOW STRENGTH) 81 mg EC tablet Take 1 tablet by mouth once daily. - famotidine (PEPCID) 20 mg tablet Take 20 mg by mouth. - VITAMIN 27 mg iron- 0.8 mg tablet Take 1 tablet by mouth every afternoon. - metoprolol succinate ER (TOPROL XL) 100 mg Take 1 tablet by mouth every afternoon. 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 Method Transabdominal and transvaginal ultrasound examination [place]te . Number of fetuses: 1 Dating LMP on: 06/22/2024 GA by LMP 12 w + 1 d HOOD by LMP: 03/29/2025 Ultrasound examination on: 09/15/2024 GA by U/S based upon: CRL GA by U/S 12 w + 4 d HOOD by U/S: 03/26/2025 Assigned: based on the LMP, selected on 09/15/2024 Assigned GA 12 w + 1 d Assigned HOOD: 03/29/2025 Biometry Standard FHR 153 bpm 8% Nicolaides CRL 61.7 mm 12w 4d 73% [facility]lock Assessment Gestational sac: visualized Location: intrauterine Yolk sac: not visualized Embryo: visualized CRL 61.7 mm 12w 4d 73% Hadlock Cardiac activity: present FHR 153 bpm 8% Nicolaides General Evaluation Cardiac activity present. FHR 153 bpm Performed By: Lidia Raza CNM Read By: Lidia Raza CNM MATERNAL MEDICINE [facility] 12 Lead EKG performed by [facility] on 09-15-2024 12 Lead EKG performed by [address] [address] 12 Lead EKG performed by [facility] 09/15/248 MR#: [id number] Acct: [id number] Name: LÓPEZ BRAVO Rep #: [id number] : 2000 24 From: Barry Larry MD Attending Dr: Dr. 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: [place] Signed Normal [facility] BACTERIAL VAGINOSIS NAATon 0 09-15-2024 Lactobacillus crispatus+gasseri+j ensenii + Gardnerella vaginalis + Atopobium vaginae rRNA DILIP+probe Ql (Vag fld) Not detected Normal Not detected [facility] Comment on above: Order Comment: Speci men Type: SWABOrdering Facility: [facility] Address: [address] [place] [address] Performed By: #### Cheryl VAMP, CVTV ####[facility] LABCLIA [id number] [address] [place] [address] [place] Bacteria Ur Culton Bacteria identified Cx Nom (U) ORGANISM ID: 1 >=100,000 CFU/ml Proteus mirabilis ORGANISM ID: 1 (PROTEUS MIRABILIS) ANTIBIOTIC INTERPRETATION CHRISTINE STATUS REFERENCE RANGE Ampicillin S <=2 F Susceptible <=8 , Intermediate >8 , Resistant >16 Cefazolin S <=4 F Susceptible 0-16 , Intermediate <0 or >16 , Resistant >16 For uncomplicated urinary tract infections, cefazolin results can be used to predict susceptibility or resistance to cephalexin. Ceftriaxone S <=1 F Susceptible <=1 , Intermediate >1 , Resistant >=4 Cefepime S <=1 F Susceptible <=2 , Susceptible-Dose Dependent >2 , Resistant >=16 Ertapenem S <=0.5 F Susceptible <=0.5 , Intermediate >.5 , Resistant >1 Meropenem S <=0.25 F Susceptible <=1 , Intermediate >1 , Resistant >2 Ampicillin/Sulbact S <=2 F Susceptible <=8 , Intermediate >8 , Resistant >16 Piperacillin/Tazobac S <=4 F Susceptible <16 , Susceptible-Dose Dependent >=16 , Resistant >=32 Gentamicin S <=1 F Susceptible <=2 , Intermediate >2 , Resistant >=8 Tobramycin S <=1 F Susceptible <4 , Intermediate >=4 , Resistant >=8 Trimeth sulfameth S <=20 F Susceptible <=40 , Resistant >40 Ciprofloxacin S <=0.25 F Susceptible <0.5 , Intermediate >=.5 , Resistant >=1 Nitrofurantoin R 128 F Susceptible <=32 , Intermediate >32 , Resistant >64 Abnormal [facility] Comment on above: Performed By: #### 6 30-4 ####[facility] LABCLIA [id number] [place] [address] [place] C. trachomatis+N. gonorrhoea e DNA DILIP+probe Ql (Unsp spec)on 09-15-2024 C. trachomatis rRNA DILIP+probe Ql (Unsp spec) Not detected Normal Not detected [facility] Comment on above: Order Comment: Speci men Type: SWABOrdering Facility: [facility] Address: [address] [place] [address] Performed By: #### 3 6902-5 ####[facility] LABCLIA [id number] [place] [address] [place] N. gonorrhoeae rRNA DILIP+probe Ql (Unsp spec) Not detected Normal Not detected [facility] Comment on above: Order Comment: Speci men Type: SWABOrdering Facility: [facility] Address: [address] [place] [address] Performed By: #### 3 6902-5 ####[facility] LABCLIA [id number] [place] [address] [place] OSCAR/TRICHOMONAS NAATon 0 09-15-2024 C. glabrata RNA DILIP+probe Ql (Vag fld) Detected Abnormal Not detected [facility] Comment on above: Order Comment: Speci men Type: SWABOrdering Facility: [facility] Address: [address] [place] [address] Performed By: #### B VAMP, CVTV ####[facility] LABCLIA [id number] [place] [address] [place] Oscar sp DNA DILIP+probe Ql (Vag fld) Detected Abnormal Not detected [facility] Comment on above: Order Comment: Speci men Type: SWABOrdering Facility: [facility] Address: [address] [place] [address] Result Comment: The Oscar species group target includes C. albicans, C. tropicalis, C. parapsilosis, and C. dubliniensis. Performed By: #### B VAMP, CVTV ####[facility] LABCLIA [id number] [address] [place] T. vaginalis DNA DILIP+probe Ql (Unsp spec) Not detected Normal Not detected [facility] Comment on above: Order Comment: Speci men Type: SWABOrdering Facility: [facility] Address: [address] [place] [address] Performed By: #### B VAMP, CVTV ####[facility] LABCLIA [id number] [place] [address] [place] Cardiology Visit Reporton Cardiology Visit Report [facility] [address] [place] [address] OFFICE VISIT Date of Service: 09/15/24 MR#: [id number] Acct: [id number] Name: LÓPEZ BRAVO Rep #: [id number] : 2000 Provider: Dr. Barry Larry MD Age/Sex: 24/F Location: [facility] Status: Signed HPI HPI History of Present Illness Details: 24-year-old lady accompanied by her mother and her boyfriend who presents for a cardiac evaluation. Her major concern is that she has been tachycardic for many years dating back about 7 years in [place]. 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 She has been on metoprolol since she was 18 and her dosages have been increased. In March 2024 she did see a software engineer web services in [place] and at that time an EKG demonstrated sinus rhythm with a rate of 87 bpm and no acute changes were noted. No particular therapy was prescribed. More recently she says that she feels very fatigued when she takes the medication and just feels like sleeping all the time. She has had no chest pain but has had occasional dizziness and some shortness of breath with activity. Her physical exam is unremarkable her electrocardiogram demonstrates sinus rhythm with a rate of 100 bpm her TSH is 0.075 with a free T4 direct of 1.67. Intake Vital Signs 09/15/24 15:49 Height 5 ft 2 in Weight: 165 lb BMI 30.2 BP 114/78 Blood Pressure Location Lt radial Position Sitting Respiration 16 Pulse 103 H Pulse Source Monitor Intake Visit Reasons: TACHYCARDIA (DORETHA) Occupational Psychologist Required: No Accompanied by: Mother Is patient in pain?: No Allergies amoxicillin Allergy (Intermediate, Verified 09/15/24 15:43) Vomiting ranitidine Allergy (Intermediate, Verified 09/15/24 15:43) PT UNSURE OF REACTION Medications ???Medication ???Instructions ???Recorded ???Confirmed ???Type famotidine 20 mg tablet 20 mg PO BID 09/09/24 09/15/24 His tory vitamins no.119-iron tab PO 09/09/24 09/15/24 History fumarate 29 mg-folic acid 1 mg tablet aspirin 81 mg tablet,delayed 81 mg PO QDAY 09/15/24 09/15/24 Hi story release (Adult Low Dose Aspirin) loratadine 10 mg tablet 10 mg PO QDAY PRN 09/15/24 5 History metoprolol succinate 50 mg 50 mg PO BID #120 tabs 09/15/24 Rx tablet,extended release 24 hr (Toprol XL) [facility] Medical History Asthma GERD (gastroesophageal reflux disease) Methylenetetrahydrofolat e reductase deficiency Dyspnea Inappropriate sinus tachycardia Surgical History No history of previous surgery Family History Sister Heart disease Social History Smoking Status: Never smoker ROS Const Const: Positive for fatigue and daytime sleepiness; Negative for weakness, headache(s) or difficulty sleeping ENT ENT: Positive for dizziness; Negative for headache(s) or Nosebleed/epistaxis Cardio Chest Pain: No Palpitations: Yes feels like its: fast Edema: None Resp Respiratory: Positive for SOB with activity; Negative for SOB at rest, SOB orthopnea SOB lying down or Cough GI GI: Negative nausea, vomiting or heartburn Neuro Neuro: Positive for dizziness and lightheadedness; Negative for near syncope, headache(s) or weakness Endo Endo: Positive for fatigue Cardiology Exam Const Appearance: cooperative, healthy appearing, no acute distress, well developed and well groomed Nutritional Appearance: average body habitus and well nourished Orientation: alert, awake and oriented x3 Head Head: normal to inspection, normocephalic and atraumatic Ears: hearing grossly normal bilaterally and external ears normal Nose: external nose normal, nares normal, nasal mucous membranes and turbinates normal, septum normal and no nasal discharge Face and Sinus: face symmetric Mouth: oral mucosae normal, tongue normal, oropharynx normal and moist mucous membranes Teeth and gingiva: dentition normal Throat: posterior oropharynx normal, tonsils normal and uvula midline Eyes General: appearance normal, both eyes and all related structures Eyelids: eyelids normal Conjunctivae: conjunctivae normal Pupils: PERRL, normal by confrontation and accommodation normal EOM: EOM intact bilaterally Neck Neck: normal visual inspection, trachea midline and no JVD JVD: +5 Carotids: normal carotid upstroke and bounding pulses Chest Chest inspection: normal inspection of the chest, symmetric chest movement and normal respiratory effort Auscultation: Bilateral: Clear to Auscultation Cardio Palpation: normal (more content not included)... Normal [facility] PAP TESTon 09-15-2024 ADEQUACY Satisfactory for interpretation. Normal [facility] Comment on above: Order Comment: Speci men Type: FLUID SPECIMENOrdering Facility: [facility] Address: [address] [place] [address] Performed By: #### L [id number] ####[facility] LABCLIA [id number] [place] [address] [place] CASE REPORT Normal [facility] Comment on above: Order Comment: Speci men Type: FLUID SPECIMENOrdering Facility: [facility] Address: [address] [place] [address] Result Comment: Gyne cologic Cytology Report Case: [id number] Authorizing Provider: Lidia Raza APRN.CNM Collected: 09/15/2024 02:51 PM Ordering Location: OB/Gynecology Received: 09/16/2024 07:49 AM First Screen: Jared, Piedad, CT, ASCP Specimen: Pap Test, ThinPrep, Cervix Performed By: #### L [id number] ####[facility] LABCLIA [id number] [place] [address] [place] CLINICAL HISTORY, CYTOLOGY, HAMMER HEATER (Indicate Weeks) Normal [facility] Comment on above: Order Comment: Speci men Type: FLUID SPECIMENOrdering Facility: [facility] Address: [address] [place] [address] Performed By: #### L [id number] ####[facility] LABCLIA [id number] [place] [address] [place] FINAL PERFORMING LAB Normal [facility] Comment on above: Order Comment: Speci men Type: FLUID SPECIMENOrdering Facility: [facility] Address: [address] [place] [address] Result Comment: Tech nical component, commercial assistant screening performed at [facility], [address] [place], [place] [id number] CLIA# [id number] Diagnostic interpretation performed at [facility], [address] [place], [place] [address] CLIA# [id number] Aircraft Quality Control Inspector: Karsten Delgdao M.D. Performed By: #### L [id number] ####[facility] LABCLIA [id number] [place] [address] [place] INTERPRETATION, CYTOLOGY, HAMMER HEATER Normal [facility] Comment on above: Order Comment: Speci men Type: FLUID SPECIMENOrdering Facility: [facility] Address: [address] [place] [address] Result Comment: Nega tive for intraepithelial lesion or malignancy. at 1110 EST Performed By: #### L [id number] ####[facility] LABCLIA [id number] [place] [address] [place] LMP 06/22/2024 Normal [facility] Comment on above: Order Comment: Speci men Type: FLUID SPECIMENOrdering Facility: [facility] Address: [address] [place] [address] Performed By: #### L [id number] ####[facility] LABCLIA [id number] [place] [address] [place] PAP DISCLAIMER COMMENT The Pap Smear is a screening test for cervical cancer. False negative results occur with all screening tests, emphasizing the need for rescreening at recommended intervals, and clinical correlation. Normal [facility] Comment on above: Order Comment: Speci men Type: FLUID SPECIMENOrdering Facility: [facility] Address: [address] [place] [address] Performed By: #### L [id number] ####[facility] LABCLIA [id number] [place] [address] [place] PAP PARTY PLAN DEMONSTRATOR COMMENT This specimen has be en analyzed by the ThinPrep Imaging System, an automated imaging and review system, which assists the laboratory in evaluating cells on ThinPrep Pap tests. Following automated imaging, selected issa from every slide are reviewed by a commercial assistant. Normal [facility] Comment on above: Order Comment: Speci men Type: FLUID SPECIMENOrdering Facility: [facility] Address: [address] [id number] Performed By: #### L [id number] ####[facility] LABCLIA [id number] [id number] [id number] [place] POC VALIDATION INTERN ULTRASOUNDon 09-15-19 Radiology Study observation (narrative) [facility] UA DIP, URINE (POC)on 2024 BILIRUBIN UA (POCT) Negative Negative Raj [facility] CLARITY UA (POCT) Clear [facility] COLOR UA (POCT) Isela [facility] GLUCOSE UA (POCT) Negative Negative mg/dL [facility] Hemoglobin Ql (U) Small Abnormal Negative [facility] Interpretation and review of laboratory results Abnormal [facility] KETONE UA (POCT) Negative Negative mg/dL [facility] LEUKOCYTES UA (POCT) Small Abnormal Negative [facility] NITRITE UA (POCT) Positive Abnormal Negative [facility] PH UA (POCT) 6.5 4.5 - 8.0 [facility] Protein Ql (U) 100 mg/dL Abnormal Negative [facility] SPECIFIC GRAVITY UA (POCT) >=1.030 1.005 - 1.030 [facility] UROBILINOGEN UA (POCT) 0.2 Normal E.U./dL [facility] Location:[facility], [address], [place], [address] [place] [address] POINT OF CARE [facility] CNPMelida 09-13-2024 EVAN[facility] Telephone (TESSA) -------- LÓPEZ BRAVO ([id number]) 4 F Date Time Provider Department 09/13/24 LIDIA RAZA During your visit today, we recorded the following information about you: Angela Marshall MA 09/13/2024 3:33 PM Signed Attempted to contact patient to go over new ob intake. No answer. Voicemail was full. Unable to leave message.СЕРГЕЙ Paredes Jennifer, RN 09/13/2024 4:08 PM Signed Patient called. Angela not available at this time. Asked patient to come in 30 min prior and to request her records from [facility]. Lizeth Gleason RN Allergies As of Date: 09/13/2024 (Not on File) Date Reviewed: Never Reviewed Prescriptions as of 10/06/2024 - aspirin, enteric coated (ECOTRIN LOW STRENGTH) 81 mg EC tablet Take 1 tablet by mouth once daily. - famotidine (PEPCID) 20 mg tablet Take 20 mg by mouth. - VITAMIN 27 mg iron- 0.8 mg tablet Take 1 tablet by mouth every afternoon. - metoprolol succinate ER (TOPROL XL) 100 mg Take 1 tablet by mouth every afternoon. Problem List As Of Date: 09/13/2024 (None) Encounter Status:Closed by ISIS MORSE on 10/06/24 Normal [facility] Urine Cultureon 09-03-2024 URC Proteus mirabilis [place] Count 25,000-50,000 Staphylococcus haemolyticus Staphylococcus haemolyticus Proteus mirabilis: REACTION Ampicillin Islt CHRISTINE <=2 S Ampicillin+Sulbac Islt CHRISTINE <=2 Cefepime Islt CHRISTINE <=0.12 S cefTRIAXone Islt CHRISTINE <=0.25 S Ciprofloxacin Islt CHRISTINE <=0.06 S Gentamicin Islt CHRISTINE <=1 S levoFLOXacin Islt CHRISTINE <=0.12 S Meropenem Islt CHRISTINE <=0.25 S Nitrofurantoin Islt CHRISTINE 128 R Pip+Tazo Islt CHRISTINE <=4 S TMP SMX Islt CHRISTINE <=20 S Staphylococcus haemolyticus: REACTION cefOXitin Susc Islt NEG Doxycycline Islt CHRISTINE <=0.5 Clindamycin.induced Susc Islt NEG Gentamicin Islt CHRISTINE <=0.5 S Linezolid Islt CHRISTINE 2 S Nitrofurantoin Islt CHRISTINE <=16 S Oxacillin Susc Islt <=0.25 S Tetracycline Islt CHRISTINE <=1 S TMP SMX Islt CHRISTINE <=10 S Vancomycin Islt CHRISTINE <=0.5 S Normal [facility] Comment on above: Performed By: #### L 3300.0960, L506.0400, M100.2200, L400.2011, L100.0500, L506.0250, L500.4050, M8200.2203, L501.9520 ####[facility] [address] [place], [place], [address] Vitamin D 1,25-Dihydroxyon 0 09-03-2024 VIT D 1,25 DIHY 59.3 pg/mL Normal 24.8-81.5 [facility] Comment on above: Result Comment: Perf ormed at: [facility] [id number] Bridal Consultant: Patrice Olivas MD, Phone: [phone] Performed By: #### L 3300.0960, L506.0400, M100.2200, L400.2010, L100.0500, L506.0250, L500.4050, M8200.2203, L501.9520 ####[facility] [address] [place], [place], [id number] [facility] 09-01-2024 [facility] Telephone (TESSA) -------- LÓPEZ BRAVO ([id number]) 4 F Date Time Provider Department 09/01/24 LIDIA RAZA During your visit today, we recorded the following information about you: Libertad Hernandez 09/01/2024 1:28 PM Signed Patient calling in asking for patient to be seen by [facility]. Patient is not sure if she should have an or not. She met with her PCP yesterday at [facility] and he suggested that she see us and make an appointment with a software engineer web services as soon as possible since she has Tachycardia. Because of this she is not sure if she is healthy enough to go through with the . She is on the schedule for Sep 15 but they are aware that this is subject to change based off of what the office says. I tried getting an nurse on the phone, however I could not get through. Please review and advise patient. Libertad Lima David September 01, 2024 1:27 PM Lizeth Gleason RN 09/01/2024 2:13 PM Signed Called and spoke with patient regarding the message below. New [facility] patient. LMP 06/22. Approximately 10w1d. Found out she was on Aug 11. 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 Patient is taking a Beta Juan. Patient had a software engineer web services in [place] (last seen in Mar) and one in [place] 2 years ago. Prefers not to go back to them because she wants to see a software engineer web services who listens to her. She thinks that [facility] was going to refer her to [place]. Encouraged patient to call [facility] and to schedule with a software engineer web services. Inquired if patient is wanting to terminate. She said only if her heart can't take a . Should we add patient to on Friday to meet with patient to establish care before her NOB? PREETI Cox Rebecca L, MD 09/01/2024 4:58 PM Signed We cannot domestic violence counselor her w/o cardio records. We can try to get her in w/ a [facility] software engineer web services but will be out of town or can go to [place] at [facility]. Please provide her w/ a number. She does not need a consult to be sent over but we can send one so they send us the information if needed. Ok to come to first ob to confirm viability and we can request records. if she can get them requested ahead of time that would be great. MD Brit Hall Lindsey, RN 09/02/2024 8:52 AM Addendum Attempted to contact patient but no answer and unable to leave as message as voicemail box is full. Will attempt to contact patient again later. PREETI Orona Annalee, LPN 09/02/2024 3:31 PM Signed Patient has appointment with [facility] on 09/15/2024 at 3:45 pm. Allergies As of Date: 09/01/2024 (Not on File) Date Reviewed: Never Reviewed Reason for Visit: Patient Question [5757] Prescriptions as of 09/15/2024 - metoprolol succinate ER (TOPROL XL) 100 mg Take 1 tablet by mouth every afternoon. Problem List As Of Date: 09/01/2024 (None) Encounter Status:Closed by LIZETH GLEASON on 09/15/24 Normal [facility] CBC-Complete Blood Cnt No Di ffon 08-31-2024 Erythrocyte distribution width (RBC) [Ratio] 14.3 % Normal 11.6-14.6 [facility] Comment on above: Performed By: #### L 3300.0960, L506.0400, M100.2200, L400.2010, L100.0500, L506.0250, L500.4050, M8200.2203, L501.9520 #### [facility] [address] [place], [address] Hematocrit (Bld) [Volume fraction] 42.0 % Normal 37-47 [facility] Comment on above: Performed By: #### L 3300.0960, L506.0400, M100.2200, L400.2010, L100.0500, L506.0250, L500.4050, M8200.2203, L501.9520 #### [facility] [address] [place], [address] Hemoglobin (Bld) [Mass/Vol] 13.5 g/dL Normal 12.0-15.0 [facility] Comment on above: Performed By: #### L 3300.0960, L506.0400, M100.2200, L400.2010, L100.0500, L506.0250, L500.4050, M8200.2203, L501.9520 #### [facility] [address] [place], [address] MCH (RBC) [Entitic mass] 27.5 pg Normal 27.0-32.0 [facility] Comment on above: Performed By: #### L 3300.0960, L506.0400, M100.2200, L400.2011, L100.0500, L506.0250, L500.4050, M8200.2203, L501.9520 #### [facility] [address] [place], [address] MCHC (RBC) [Mass/Vol] 32.1 g/dL Normal 32-36 [facility] Comment on above: Performed By: #### L 3300.0960, L506.0400, M100.2200, L400.2010, L100.0500, L506.0250, L500.4050, M8200.2203, L501.9520 #### [facility] [address] [place], [address] MCV (RBC) [Entitic vol] 85.5 fL Normal 81-99 [facility] Comment on above: Performed By: #### L 3300.0960, L506.0400, M100.2200, L400.2010, L100.0500, L506.0250, L500.4050, M8200.2203, L501.9520 #### [facility] [address] [place], [address] Platelet mean volume (Bld) [Entitic vol] 11.8 fL Normal 6.2-12.0 [facility] Comment on above: Performed By: #### L 3300.0960, L506.0400, M100.2200, L400.2010, L100.0500, L506.0250, L500.4050, M8200.2203, L501.9520 #### [facility] [address] [place], [address] Platelets (Bld) [#/Vol] 290 10*3/uL Normal 150-450 [facility] Comment on above: Performed By: #### L 3300.0960, L506.0400, M100.2200, L400.2011, L100.0500, L506.0250, L500.4050, M8200.2203, L501.9520 #### [facility] [address] [place], [address] RBC (Bld) [#/Vol] 4.91 10*6/uL Normal 4.2-5.4 [facility] Comment on above: Performed By: #### L 3300.0960, L506.0400, M100.2200, L400.2010, L100.0500, L506.0250, L500.4050, M8200.2203, L501.9520 #### [facility] [address] [place], [place], [id number] (891) RDW SD 43.9 fl Normal 35.1-43.9 [facility] Comment on above: Performed By: #### L 3300.0960, L506.0400, M100.2200, L400.2010, L100.0500, L506.0250, L500.4050, M8200.2203, L501.9520 #### [facility] [address] [place], [address] WBC (Bld) [#/Vol] 11.2 10*3/uL High 4.4-11.0 [facility] Comment on above: Performed By: #### L 3300.0960, L506.0400, M100.2200, L400.2010, L100.0500, L506.0250, L500.4050, M8200.2203, L501.9520 #### [facility] [address] [place], [address] Comprehensive Metabolic Prof [facility] 08-31-2024 Albumin [Mass/Vol] 3.8 g/dL Normal 3.2-5.0 [facility] Comment on above: Order Comment: N Performed By: #### L 3300.0960, L506.0400, M100.2200, L400.2010, L100.0500, L506.0250, L500.4050, M8200.2203, L501.9520 #### [facility] [address] [place], [address] Albumin/Globulin [Mass ratio] 0.9 {ratio} Normal 0.9-2.4 [facility] Comment on above: Order Comment: N Performed By: #### L 3300.0960, L506.0400, M100.2200, L400.2010, L100.0500, L506.0250, L500.4050, M8200.2203, L501.9520 #### [facility] [address] [place], [address] ALK P 66 U/L Normal 45-117 [facility] Comment on above: Order Comment: N Performed By: #### L 3300.0960, L506.0400, M100.2200, L400.2010, L100.0500, L506.0250, L500.4050, M8200.2203, L501.9520 #### [facility] [address] [place], [address] ALT [Catalytic activity/Vol] 57 U/L High 13-56 [facility] Comment on above: Order Comment: N Performed By: #### L 3300.0960, L506.0400, M100.2200, L400.2010, L100.0500, L506.0250, L500.4050, M8200.2203, L501.9520 #### [facility] [address] [place], [address] AST [Catalytic activity/Vol] 23 U/L Normal 15-37 [facility] Comment on above: Order Comment: N Performed By: #### L 3300.0960, L506.0400, M100.2200, L400.2010, L100.0500, L506.0250, L500.4050, M8200.2203, L501.9520 #### [facility] [address] [place], [address] Bilirubin [Mass/Vol] 0.60 mg/dL Normal 0.20-1.00 [facility] Comment on above: Order Comment: N Result Comment: For patients on eltrombopag therapy, use of Dimension [place] TBIL is not recommended. Performed By: #### L 3300.0960, L506.0400, M100.0, L4.2010, L100.0500, L506.0250, L500.4050, M8200.2203, L501.9520 #### [facility] [address] [place], [address] BUN/CRE 12.4 RATIO Normal 10-20 [facility] Comment on above: Order Comment: N Performed By: #### L 3300.0960, L506.0400, M100.0, L4.2010, L100.0500, L506.0250, L500.4050, M8200.2203, L501.9520 #### [facility] [address] [place], [address] CA,Total 10.5 mg/dL High 8.5-10.1 [facility] Comment on above: Order Comment: N Performed By: #### L 3300.0960, L506.0400, M100.2200, L4.2010, L100.0500, L506.0250, L500.4050, M8200.2203, L501.9520 #### [facility] [address] [place], [address] Chloride [Moles/Vol] 104 mmol/L Normal 98-107 [facility] Comment on above: Order Comment: N Performed By: #### L 3300.0960, L506.0400, M100.2200, L4.2010, L100.0500, L506.0250, L500.4050, M8200.2203, L501.9520 #### [facility] [address] [place], [address] CO2 [Moles/Vol] 19.0 mmol/L Low 21.0-32.0 [facility] Comment on above: Order Comment: N Performed By: #### L 3300.0960, L506.0400, M100.2199, L4, L100.0500, L506.0250, L500.4050, M8200.2203, L501.9520 #### [facility] [address] [place], [address] Creatinine [Mass/Vol] 0.56 mg/dL Normal 0.55-1.02 [facility] Comment on above: Order Comment: N Result Comment: The validity of the calculated GFR GFRAA in patients over 70 years has not been determined. Clinical correlation is essential. Performed By: #### L 3300.0960, L506.0400, M100.0, L4, L100.0500, L506.0250, L500.4050, M8200.2203, L501.9520 #### [facility] [address] [place], [address] EST GFR - AA 172 mL/min Normal >60 [facility] Comment on above: Order Comment: N Result Comment: Afri can Indian GFR Calc Performed By: #### L 3300.0960, L506.0400, M100.2200, L4.2010, L100.0500, L506.0250, L500.4050, M8200.2203, L501.9520 #### [facility] [address] [place], [place], [id number] GAP 13 Normal 5-15 [facility] Comment on above: Order Comment: N Performed By: #### L 3300.0960, L506.0400, M100.2200, L400.2010, L100.0500, L506.0250, L500.4050, M8200.2203, L501.9520 #### [facility] [address] [place], [place], [address] GFR/1.73 sq M.predicted among non-blacks MDRD (S/P/Bld) [Vol rate/Area] 142 mL/min/{1.73_m2} Normal >60 [facility] Comment on above: Order Comment: N Result Comment: Non- GFR Calc Performed By: #### L 3300.0960, L506.0400, M100.2200, L400.2010, L100.0500, L506.0250, L500.4050, M8200.2203, L501.9520 #### [facility] [address] [place], [place], [address] Globulin (S) [Mass/Vol] 4.4 g/dL High 2.2-4.2 [facility] Comment on above: Order Comment: N Performed By: #### L 3300.0960, L506.0400, M100.2200, L400.2010, L100.0500, L506.0250, L500.4050, M8200.2203, L501.9520 #### [facility] [address] [place], [place], [phone] Glucose [Mass/Vol] 84 mg/dL Normal 74-106 [facility] Comment on above: Order Comment: N Performed By: #### L 3300.0960, L506.0400, M100.2200, L400.2010, L100.0500, L506.0250, L500.4050, M8200.2203, L501.9520 #### [facility] [address] [place], [address] Potassium [Moles/Vol] 3.5 mmol/L Normal 3.5-5.1 [facility] Comment on above: Order Comment: N Performed By: #### L 3300.0960, L506.0400, M100.2200, L400.2011, L100.0500, L506.0250, L500.4050, M8200.2203, L501.9520 #### [facility] [address] [place], [address] Sodium [Moles/Vol] 135 mmol/L Low 136-145 [facility] Comment on above: Order Comment: N Performed By: #### L 3300.0960, L506.0400, M100.2200, L400.2010, L100.0500, L506.0250, L500.4050, M8200.2203, L501.9520 #### [facility] [address] [facility] [place], [address] T PROT 8.2 g/dL Normal 6.4-8.2 [facility] Comment on above: Order Comment: N Performed By: #### L 3300.0960, L506.0400, M100.2200, L400.2010, L100.0500, L506.0250, L500.4050, M8200.2203, L501.9520 #### [facility] [address] [place], [address] Urea nitrogen [Mass/Vol] 7 mg/dL Normal 7-18 [facility] Comment on above: Order Comment: N Performed By: #### L 3300.0960, L506.0400, M100.2200, L400.2010, L100.0500, L506.0250, L500.4050, M8200.2203, L501.9520 #### [facility] [address] [place], [address] Folates, (Folic Acid)on 08-12 FOLATES 14.80 ng/mL Normal 3.1-55.4 [facility] Comment on above: Order Comment: N Result Comment: Slig ht Hemolysis, Result may be falsely increased. Performed By: #### L 3300.0960, L506.0400, M100.2200, L400.2010, L100.0500, L506.0250, L500.4050, M8200.2203, L501.9520 #### [facility] [address] [place], [address] M8200.2203on 08-31-2024 M8200.2203 Pending Chlamydia Trachomatis PCR NEGATIVE for Chlamydia trachomatis N. gonorrhoeae PCR Negative for N. gonorrhoeae Normal [facility] Comment on above: Performed By: #### L 3300.0960, L506.0400, M100.2200, L400.2010, L100.0500, L506.0250, L500.4050, M8200.2203, L501.9520 #### [facility] [address] [place], [place], [id number] T4 Free Directon 08-31-2024 T4 FREE DIRECT 1.67 ng/dL High 0.76-1.46 [facility] Comment on above: Order Comment: N Performed By: #### L 3300.0960, L506.0400, M100.2200, L400.2010, L100.0500, L506.0250, L500.4050, M8200.2203, L501.9520 #### [facility] [address] [place], [place], [address] Thyroid Stim Hormone (TSH)on 08-31-2024 TSH 0.075 uIU/mL Low 0.358-3.740 [facility] Comment on above: Order Comment: N Performed By: #### L 3300.0960, L506.0400, M100.2200, L400.2010, L100.0500, L506.0250, L500.4050, M8200.2203, L501.9520 #### [facility] [address] [place], [address] Urinalysis, Routine (Dipstic k)on 08-31-2024 KETONE UR 150 mg/dl Abnormal Negative [facility] Comment on above: Order Comment: Urine , Random Result Comment: CRIT ICAL VALUE *H RESULTS CALLED TO WAITING FOR CALLBACK DR LIDIA COYNE 08/31/24 1728 Jeanne Mayorga. REPORT READ BACK BY . WAITING FOR CALLBACK Performed By: #### L 3300.0960, L506.0400, M100.2200, L400.2010, L100.0500, L506.0250, L500.4050, M8200.2203, L501.9520 #### [facility] [address] [place], [address] BILIRUBIN URINE Negative Normal Negative [facility] Comment on above: Order Comment: Urine , Random Performed By: #### L 3300.0960, L506.0400, M100.2200, L400.2010, L100.0500, L506.0250, L500.4050, M8200.2203, L501.9520 #### [facility] [address] [place], [address] Clarity (U) Sl. Cloudy Normal Clear [facility] Comment on above: Order Comment: Urine , Random Performed By: #### L 3300.0960, L506.0400, M100.2200, L400.2010, L100.0500, L506.0250, L500.4050, M8200.2203, L501.9520 #### [facility] [address] [place], [address] Color (U) Yellow Normal Yellow [facility] Comment on above: Order Comment: Urine , Random Performed By: #### L 3300.0960, L506.0400, M100.2200, L400.2011, L100.0500, L506.0250, L500.4050, M8200.2203, L501.9520 #### [facility] [address] [place], [address] GLUCOSE, UR Normal Normal Normal [facility] Comment on above: Order Comment: Urine , Random Performed By: #### L 3300.0960, L506.0400, M100.2200, L400.2010, L100.0500, L506.0250, L500.4050, M8200.2203, L501.9520 #### [facility] [address] [facility] [place], [address] LEUK ESTERASE 500 /ul Abnormal Negative [facility] Comment on above: Order Comment: Urine , Random Performed By: #### L 3300.0960, L506.0400, M100.2200, L400.2010, L100.0500, L506.0250, L500.4050, M8200.2203, L501.9520 #### [facility] [address] [place], [address] Nitrite Ql (U) Positive Abnormal Negative [facility] Comment on above: Order Comment: Urine , Random Performed By: #### L 3300.0960, L506.0400, M100.2200, L400.2010, L100.0500, L506.0250, L500.4050, M8200.2203, L501.9520 #### [facility] [address] [place], [address] OCCULT BLOOD-UR 25 /ul Abnormal Negative [facility] Comment on above: Order Comment: Urine , Random Performed By: #### L 3300.0960, L506.0400, M100.2200, L400.2010, L100.0500, L506.0250, L500.4050, M8200.2203, L501.9520 #### [facility] [address] [place], [address] pH UR 6.0 Normal 5.0 - 8.0 [facility] Comment on above: Order Comment: Urine , Random Performed By: #### L 3300.0960, L506.0400, M100.2200, L400.2011, L100.0500, L506.0250, L500.4050, M8200.2203, L501.9520 #### [facility] [address] [place], [address] PROT DIPSTX 30 mg/dl Abnormal Negative [facility] Comment on above: Order Comment: Urine , Random Performed By: #### L 3300.0960, L506.0400, M100.2200, L400.2010, L100.0500, L506.0250, L500.4050, M8200.2203, L501.9520 #### [facility] [address] [place], [address] SP.GR. DIPSTX 1.025 Normal 1.002-1.030 [facility] Comment on above: Order Comment: Urine , Random Performed By: #### L 3300.0960, L506.0400, M100.2200, L400.2010, L100.0500, L506.0250, L500.4050, M8200.2203, L501.9520 #### [facility] [address] [place], [address] UROBILI 4 mg/dl Abnormal Normal [facility] Comment on above: Order Comment: Urine , Random Performed By: #### L 3300.0960, L506.0400, M100.2200, L400.2010, L100.0500, L506.0250, L500.4050, M8200.2203, L501.9520 #### [facility] [address] [place], [place], [address] [place] 08-19-2024 CNPN Telephone (OBGY) -------- LÓPEZ BRAVO ([id number]) 4 F Date Time Provider Department 08/19/24 [facility] During your visit today, we recorded the following information about you: Delilah Payne LPN 08/19/2024 10:14 AM Signed Central Scheduling, Jaky left VM on PEAC line with pt's information requesting a call back in regards to pt wanting elective IAB. Called pt's number and ULVM due to it being full. Unable to send MCM with resources since [employer] is not active. Thank you, Delilah Payne LPN Allergies As of Date: 08/19/2024 (Not on File) Date Reviewed: Never Reviewed Reason for Visit: Complex Family Planning [Other] Problem List As Of Date: 08/19/2024 (None) Encounter Status:Closed by DELILAH PAYNE on 08/19/24 Normal [facility] Vital Signs Date Time Vital Sign Value Performing Clinician Facility 03-24-2025 16:03-0400 Body mass index (BMI) [Ratio] 33.71 kg/m2 Sharyn Rodriguez MD Work Phone: [facility] 03-24-2025 16:03-0400 Body weight 83.1 kg Sharyn Rodriguez MD Work Phone: [facility] 03-24-2025 16:03-0400 Diastolic blood pressure 72 mm[Hg] Sharyn Rodriguez MD Work Phone: [facility] 03-24-2025 16:03-0400 Systolic blood pressure 110 mm[Hg] Sharyn Rodriguez MD Work Phone: [facility] 03-11-2025 14:41-0400 Body mass index (BMI) [Ratio] 33.68 kg/m2 Lidia Raza [employer]BBLE M[employer] OPERATOR[employer]CNM Work Phone: [facility] 03-11-2025 14:41-0400 Body weight 83.01 kg Lidia Raza PEBBLE M[employer] OPERATOR.CNM Work Phone: [facility] 03-11-2025 14:41-0400 Diastolic blood pressure 70 mm[Hg] Lidia Raza PEBBLE M[employer] OPERATOR.CNM Work Phone: [facility] 03-11-2025 14:41-0400 Systolic blood pressure 116 mm[Hg] Lidia Raza PEBBLE MILL OPERATOR.CNM Work Phone: [facility] 03-03-2025 13:48-0400 Body mass index (BMI) [Ratio] 33.12 kg/m2 Albert Swift MD Work Phone: [facility] 03-03-2025 13:48-0400 Body weight 81.65 kg Albert Swift MD Work Phone: [facility] 03-03-2025 13:48-0400 Diastolic blood pressure 70 mm[Hg] Albert Swift MD Work Phone: [facility] 03-03-2025 13:48-0400 Systolic blood pressure 116 mm[Hg] Albert Swift MD Work Phone: [facility] 03-02-2025 14:19-0400 Body temperature 98.2 [degF] Capri Brown MD Work Phone: [facility] 03-02-2025 14:19-0400 Diastolic blood pressure 73 mm[Hg] Capri Brown MD Work Phone: [facility] 03-02-2025 14:19-0400 Heart rate 108 /min Capri Brown MD Work Phone: [facility] 03-02-2025 14:19-0400 Respiratory rate 16 /min Capri Brown MD Work Phone: [facility] 03-02-2025 14:19-0400 SaO2% (BldA) [Mass fraction] 98 % Capri Brown MD Work Phone: [facility] 03-02-2025 14:19-0400 Systolic blood pressure 107 mm[Hg] Capri Brown MD Work Phone: [facility] 03-02-2025 10:33-0400 Body height 157 cm Capri Brown MD Work Phone: [facility] 03-02-2025 10:33-0400 Body mass index (BMI) [Ratio] 33.53 kg/m2 Capri Brown MD Work Phone: [facility] 03-02-2025 10:33-0400 Body weight 82.65 kg Capri Brown MD Work Phone: [facility] 02-25-2025 14:47-0400 Body mass index (BMI) [Ratio] 32.94 kg/m2 Lizeth Tate MD Work Phone: [facility] 02-25-2025 14:47-0400 Body weight 81.19 kg Lizeth Tate MD Work Phone: [facility] 02-25-2025 14:47-0400 Diastolic blood pressure 68 mm[Hg] Lizeth Tate MD Work Phone: [facility] 02-25-2025 14:47-0400 Systolic blood pressure 118 mm[Hg] Lizeth Tate MD Work Phone: [facility] 02-21-2025 09:35-0400 Body height [address] [facility] 02-21-2025 09:35-0400 Body mass index (BMI) [Ratio] 32.39 kg/m2 Kalee More RD [facility] 02-21-2025 09:35-0400 Body weight 79.[address] [facility] Comment on above: at last medical visit 02-02-2025 15:10-0400 Body mass index (BMI) [Ratio] 32.39 kg/m2 Lizeth Tate MD Work Phone: [facility] 02-02-2025 15:10-0400 Body weight 79.83 kg Lizeth Tate MD Work Phone: [facility] 02-02-2025 15:10-0400 Diastolic blood pressure 80 mm[Hg] Lizeth Tate MD Work Phone: [facility] 02-02-2025 15:10-0400 Systolic blood pressure 122 mm[Hg] Lizeth Tate MD Work Phone: [facility] 01-26-2025 14:25-0400 Body height 157.48 cm Lidia Coyne SEISMOGRAPH RECORDER-C Work Phone: [facility] 01-26-2025 14:25-0400 Body mass index (BMI) [Ratio] 32.7 kg/m2 Lidia Coyne SEISMOGRAPH RECORDER-C Work Phone: [facility] 01-26-2025 14:25-0400 Body weight 81.19 kg Lidia Coyne SEISMOGRAPH RECORDER-C Work Phone: [facility] 01-26-2025 14:25-0400 Diastolic blood pressure 77 mm[Hg] Lidia Coyne SEISMOGRAPH RECORDER-C Work Phone: [facility] 01-26-2025 14:25-0400 Heart rate 94 /min Lidia Coyne SEISMOGRAPH RECORDER-C Work Phone: [facility] 01-26-2025 14:25-0400 Respiratory rate 18 /min Lidia Coyne SEISMOGRAPH RECORDER-C Work Phone: [facility] 01-26-2025 14:25-0400 Systolic blood pressure 107 mm[Hg] Lidia Coyne SEISMOGRAPH RECORDER-C Work Phone: [facility] 01-20-2025 15:33-0400 Body mass index (BMI) [Ratio] 32.39 kg/m2 Tia Jacobs APRN.SALES AGENT PROTECTIVE SERVICE Work Phone: [facility] 01-20-2025 15:33-0400 Body weight 79.83 kg Tia Jacobs APRN.SALES AGENT PROTECTIVE SERVICE Work Phone: [facility] 01-20-2025 15:33-0400 Diastolic blood pressure 70 mm[Hg] Tia Haury PEBBLE MILL OPERATOR.SALES AGENT PROTECTIVE SERVICE Work Phone: [facility] 01-20-2025 15:33-0400 Systolic blood pressure 120 mm[Hg] Tia Jacobs PEBBLE MILL OPERATOR.SALES AGENT PROTECTIVE SERVICE Work Phone: [facility] 01-04-2025 13:54-0400 Body mass index (BMI) [Ratio] 32.39 kg/m2 Lizeth Tate MD Work Phone: [facility] 01-04-2025 13:54-0400 Body weight 79.83 kg Lizeth Tate MD Work Phone: [facility] 01-04-2025 13:54-0400 Diastolic blood pressure 74 mm[Hg] Lizeth Tate MD Work Phone: [facility] 01-04-2025 13:54-0400 Systolic blood pressure 110 mm[Hg] Lizeth Tate MD Work Phone: [facility] 12-20-2024 14:46-0400 Body mass index (BMI) [Ratio] 31.76 kg/m2 Carolyn Plotrafaela PEBBLE MILL OPERATOR.CNM Work Phone: [facility] 12-20-2024 14:46-0400 Body weight 78.29 kg Carolyn Espinozarafaela PEBBLE MILL OPERATOR.CNM Work Phone: [facility] 12-20-2024 14:46-0400 Diastolic blood pressure 78 mm[Hg] Carolyn Plotts PEBBLE MILL OPERATOR.CNM Work Phone: [facility] 12-20-2024 14:46-0400 Systolic blood pressure 110 mm[Hg] Carolyn Plotts PEBBLE MILL OPERATOR.CNM Work Phone: [facility] 10-14-2024 13:55-0500 Body mass index (BMI) [Ratio] 30.92 kg/m2 Stefanie Campbell MD Work Phone: [facility] 10-14-2024 13:55-0500 Body weight 76.2 kg Stefanie Campbell MD Work Phone: [facility] 10-14-2024 13:55-0500 Diastolic blood pressure 70 mm[Hg] Stefanie Campbell MD Work Phone: [facility] 10-14-2024 13:55-0500 Systolic blood pressure 110 mm[Hg] Stefanie Campbell MD Work Phone: [facility] 09-15-2024 13:15-0500 Body height 157 cm Lidiamarija Raza PEBBLE MILL OPERATOR.CNM Work Phone: [facility] 09-15-2024 13:15-0500 Body mass index (BMI) [Ratio] 29.81 kg/m2 Lidia Raza PEBBLE MILL OPERATOR.CNM Work Phone: [facility] 09-15-2024 13:15-0500 Body weight 73.48 kg Lidia Raza APRN.CNM Work Phone: [facility] 09-15-2024 13:15-0500 Diastolic blood pressure 74 mm[Hg] Lidia Raza PEBBLE MILL OPERATOR.CNM Work Phone: [facility] 09-15-2024 13:15-0500 Systolic blood pressure 102 mm[Hg] Lidia Ry PEBBLE MILL OPERATOR.CNM Work Phone: [facility] Encounters Encounter Date Encounter Type Care Provider Facility Start: 03-25-2025 End: 03-25-2025 Telephone encounter Sharyn Rodriguez MD Work Phone: OB/Gynecology Comment on above: Care Start: 03-24-2025 End: 03-24-2025 Patient encounter procedure Sharyn Rodriguez MD Work Phone: OB/Gynecology Comment on above: Diet controlled gest ational diabetes mellitus (GDM) in third trimester (HCC) (Primary Dx); 39 weeks gestation of (HCC); Group B Streptococcus carrier, antepartum (HCC); Supervision of high risk in third trimester (HCC) Start: 03-17-2025 End: 03-17-2025 ambulatory SHARYN RODRIGUEZ Facility:[facility] Start: 03-15-2025 End: 03-15-2025 [facility] Start: 03-15-2025 End: 03-15-2025 Patient encounter procedure [facility] Comment on above: Population Health Na vigation Outreach ( to PCP/OB//) Start: 03-11-2025 End: 03-11-2025 Patient encounter procedure Lidia Raza JONAH Work Phone: OB/Gynecology Comment on above: Supervision of high risk in third trimester (HCC) (Primary Dx); 37 weeks gestation of (HCC); Diet controlled gestational diabetes mellitus (GDM) in third trimester (HCC); Hypothyroidism, unspecified type Start: 03-11-2025 End: 03-11-2025 [facility] LIDIA HOUMA Facility:[facility] Start: 03-03-2025 End: 03-03-2025 ambulatory TIA DASDEVIN Facility:[facility] Start: 03-03-2025 End: 03-03-2025 Patient encounter procedure Albert Swift MD Work Phone: OB/Gynecology Comment on above: Supervision of high risk in third trimester (HCC) (Primary Dx); Diet controlled gestational diabetes mellitus (GDM) in third trimester (HCC); Hypothyroidism, unspecified type Diet controlled gest ational diabetes mellitus (GDM) in third trimester (HCC) (Primary Dx); with uncertain dates, antepartum ([facility]) Start: 03-03-2025 End: 03-03-2025 [facility] Facility:[facility] Start: 03-02-2025 End: 03-02-2025 Patient encounter procedure Capri Brown MD Work Phone: Allergy Comment on above: Adverse effect of dr cottrell, subsequent encounter (Primary Dx); Allergy to penicillin Start: 03-02-2025 End: 03-02-2025 ambulatory CAPRI BROWN Facility:[facility] Start: 02-28-2025 End: 02-28-2025 Telephone encounter Lizeth Patel RN Maternal Medic ine Comment on above: Bath Design Sales Consultant - O ther (PRAF) Start: 02-25-2025 End: 02-25-2025 Office outpatient visit 15 minutes Lizeth Tate MD Work Phone: OB/Gynecology Comment on above: Supervision of high risk in third trimester (HCC) (Primary Dx); Diet controlled gestational diabetes mellitus (GDM) in third trimester (HCC); Hypothyroidism, unspecified type; Penicillin allergy; 35 weeks gestation of (HCC) Start: 02-25-2025 End: 02-25-2025 ambulatory LIZETH TATE Facility:[facility] Start: 02-21-2025 End: 02-21-2025 ambulatory KALEE MORE Facility:[facility] Start: 02-21-2025 End: 02-21-2025 Nutrition therapy Kalee More RD Nutrition Therapy Comment on above: Dietary counseling ( Primary Dx); Gestational diabetes mellitus (GDM) in third trimester, gestational diabetes method of control unspecified (HCC) Start: 02-21-2025 End: 02-21-2025 Telemedicine consultation with patient Kalee More RD Nutrition Therapy Start: 02-02-2025 End: 02-02-2025 Office outpatient visit 15 minutes Lizeth Tate MD Work Phone: OB/Gynecology Comment on above: Supervision of high risk in third trimester (HCC) (Primary Dx); Diet controlled gestational diabetes mellitus (GDM) in third trimester (HCC) Start: 02-02-2025 End: 02-02-2025 Patient encounter procedure Whi Tech 1 Wage And Hour Investigator Mfm Wstr Mob Maternal Medicine Comment on above: Diet controlled gest ational diabetes mellitus (GDM) in third trimester (HCC) (Primary Dx); Gestational diabetes mellitus (GDM) in third trimester, gestational diabetes method of control unspecified (HCC) Start: 02-02-2025 End: 02-02-2025 ambulatory CAROLYN RICHMOND Facility:[facility] Start: 01-26-2025 End: 01-26-2025 Patient encounter procedure Tr [facility] Work Phone: Start: 01-26-2025 End: 01-26-2025 ambulatory Lidia Coyne SEISMOGRAPH RECORDER-C Work Phone: [facility] Work Phone: Start: 01-20-2025 End: 01-20-2025 Patient encounter procedure Tia Jacobs APRN.CNP Work Phone: OB/Gynecology Comment on above: Supervision of high risk in third trimester (HCC) (Primary Dx); 30 weeks gestation of (HCC); Hypothyroidism, unspecified type; Tachycardia; Penicillin allergy; UTI (urinary tract infection) in , antepartum ([facility]); Diet controlled gestational diabetes mellitus (GDM) in third trimester ([facility]); Abnormal ultrasound Start: 01-20-2025 End: 01-20-2025 ambulatory TIA JACOBS Facility:[facility] Start: 01-19-2025 End: 01-19-2025 Telemedicine consultation with patient Emma Padgett MD Work Phone: Endocrinology Start: 01-19-2025 End: 01-19-2025 ambulatory Emma Padgett MD Work Phone: Endocrinology Comment on above: Hypothyroidism, unsp ecified type Start: 01-18-2025 End: 01-18-2025 Telephone encounter Carolyn Richmond APRN.CNM Work Phone: OB/Gynecology Comment on above: Results (3 hour gluc ose) Start: 01-13-2025 End: 01-13-2025 ambulatory ALBERT SWIFT [facility] Start: 01-05-2025 End: 03-07-2025 Follow-up encounter Carolyn Richmond APRN.CNM Work Phone: OB/Gynecology Start: 01-04-2025 End: 01-04-2025 Office outpatient visit 15 minutes Lizeth Tate MD Work Phone: OB/Gynecology Comment on above: Supervision of high risk in third trimester ([facility]) (Primary Dx); 28 weeks gestation of ([facility]) Start: 01-04-2025 End: 01-04-2025 ambulatory LIZETH TATE Facility:[facility] Start: 12-23-2024 End: 12-23-2024 ambulatory CAPRI BROWN Facility:[facility] Start: 12-23-2024 End: 12-23-2024 Office consultation new/estab patient 40 min Capri Brown MD Work Phone: Allergy Comment on above: Adverse effect of dr cottrell, initial encounter (Primary Dx); Allergy to penicillin Start: 12-21-2024 End: 02-20-2025 Follow-up encounter Albert Swift MD Work Phone: OB/Gynecology Start: 12-20-2024 End: 12-20-2024 Patient encounter procedure Carolyn Richmond CNM Work Phone: OB/Gynecology Comment on above: 25 weeks gestation o f (HCC) (Primary Dx); Screening for diabetes mellitus; Supervision of high risk in second trimester ([facility]); Transportation insecurity; Tachycardia; Penicillin allergy Encounter for anatomic survey ([facility]) (Primary Dx); Late care affecting , antepartum ([facility]); 25 weeks gestation of (HCC) Start: 12-20-2024 End: 12-20-2024 ambulatory ALBERT SWIFT Facility:[facility] Start: 12-08-2024 End: 12-13-2024 Telephone encounter Lidia Raza APRN.CNM Work Phone: OB/Gynecology Start: 11-30-2024 End: 11-30-2024 Telephone encounter Stefanie Campbell MD Work Phone: OB/Gynecology Comment on above: OB vomiting Start: 11-26-2024 End: 11-26-2024 Chart abstracting Lidia Raza APRN.CNM Work Phone: OB/Gynecology Comment on above: Anatomy US Results Start: 11-25-2024 End: 11-25-2024 ambulatory LIDIA PINEDA [facility] Start: 11-15-2024 End: 11-16-2024 Telephone encounter Lidia Raza APRN.CNM Work Phone: OB/Gynecology Comment on above: Orders Start: 10-29-2024 End: 10-29-2024 ambulatory BARRY MEYERS [facility] Start: 10-27-2024 ambulatory Lidia Coyne [facility] cility:[facility] Start: 10-19-2024 End: 11-17-2024 Follow-up encounter Albert Swift MD Work Phone: OB/Gynecology Start: 10-18-2024 End: 12-18-2024 Follow-up encounter Lina Sy APRN.SALES AGENT PROTECTIVE SERVICE Work Phone: OB/Gynecology Start: 10-18-2024 End: 10-19-2024 Telephone encounter Lidia Raza APRN.CNM Work Phone: OB/Gynecology Comment on above: Patient Request Start: 10-15-2024 End: 10-15-2024 Telephone encounter Stefanie Campbell MD Work Phone: OB/Gynecology Comment on above: Follow Up Start: 10-14-2024 End: 10-14-2024 Patient encounter procedure Stefanie Campbell MD Work Phone: OB/Gynecology Comment on above: 16 weeks gestation o f (Primary Dx); Supervision of high risk in second trimester; UTI (urinary tract infection) in , antepartum; Tachycardia Start: 10-14-2024 End: 10-14-2024 ambulatory LIDIA RAZA Facility:[facility] Start: 10-06-2024 End: 10-06-2024 Telephone encounter Lidia Raza APRN.CNM Work Phone: OB/Gynecology Comment on above: Care Start: 10-05-2024 ambulatory ADRIENNE MEYERS [facility] Start: 09-27-2024 End: 09-30-2024 Telephone encounter Lidia Raza APRN.CNM Work Phone: OB/Gynecology Comment on above: F/U ER visit Start: 09-24-2024 End: 09-24-2024 Telephone encounter Lizeth Tate MD Work Phone: OB/Gynecology Comment on above: Patient Update Start: 09-24-2024 End: 09-24-2024 Emergency department patient visit LIDIA [facility] Start: 09-20-2024 End: 09-20-2024 Follow-up encounter Lidia Raza APRN.CNM Work Phone: OB/Gynecology Comment on above: Penicillin allergy ( Primary Dx); Supervision of high risk in second trimester; Type 1 diabetes mellitus affecting , antepartum; 12 weeks gestation of Start: 09-16-2024 End: 09-17-2024 Telephone encounter Nurse Wage And Hour Investigator Alfonzo Batista Work Phone: Obstetrics/Gynecology Comment on above: PRAF Cardiology appointme nt Start: 09-15-2024 End: 09-15-[address] [facility] Facility:[facility] Start: 09-15-2024 End: 09-15-2024 Patient encounter procedure Lidia Raza APRN.CNM Work Phone: OB/Gynecology Comment on above: with uncer tain dates, antepartum (Primary Dx); Urinary tract infection without hematuria, site unspecified; Encounter for screening for malignant neoplasm of cervix; Vaginal discharge; Hypothyroidism, unspecified type; Supervision of high risk in first trimester; Other specified hypothyroidism; Tachycardia; UTI (urinary tract infection) in , antepartum Start: 09-14-2024 End: 09-14-2024 ambulatory Lidia Raza APRN.CNM Work Phone: OB/Gynecology Comment on above: [facility] Start: 09-13-2024 End: 10-06-2024 Telephone encounter Lidia Raza APRN.CNM Work Phone: OB/Gynecology Start: 09-01-2024 End: 09-15-2024 Telephone encounter Lidia Raza APRN.CNM Work Phone: OB/Gynecology Comment on above: Patient Question Start: 08-31-2024 End: 08-31-[address] [facility] Facility:[facility] Start: 08-19-2024 End: 08-19-2024 Telephone encounter Delilah Payne LPN Work Phone: [employer] [facility] Comment on above: Complex Family Plann ing Procedures Date Procedure Procedure Detail Performing Clinician Start: 03-24-2025 Urnls dip stick/tabl et rgnt non-auto w/o micrscp Sharyn Rodriguez MD Work Phone: Start: 03-11-2025 Iadna streptococcus group b amplified probe tq Lidia Raza APRN.CNM Work Phone: Start: 03-11-2025 Urnls dip stick/tabl et rgnt non-auto w/o micrscp Lidia Raza APRN.CNM Work Phone: Start: 03-03-2025 Urnls dip stick/tabl et rgnt non-auto w/o micrscp Lizeth Tate MD Work Phone: Start: 03-03-2025 Us preg uterus after 1st trimest 08/11 gestation Lidia Raza APRN.CNM Work Phone: Start: 02-25-2025 Urnls dip stick/tabl et rgnt non-auto w/o micrscp Lizeth Tate MD Work Phone: Start: 02-02-2025 Us preg uterus after 1st trimest 08/11 gestation Carolyn iY GUILLEN.CNM Work Phone: Start: 12-20-2024 Us preg uterus after 1st trimest 08/11 gestation Albert Swift MD Work Phone: Start: 10-14-2024 Antibody screen [place] Comment on above: Order Comment: Speci men Type: BLOOD SPECIMENOrdering Facility: [facility] Address: [address] [place] [address] Performed By: #### T SPN ####CC [facility] [id number] [address] [place] Start: 09-24-2024 Urinalysis LIDIA TOLEDO Comment on above: Result Comment: URIN ALYSIS Performed By: #### [id number] #### [facility],[address] [place] [address] Start: 09-15-2024 Us uterus l imited 1/> fetuses Lidia Raza APRN.CNM Work Phone: Start: 09-15-2024 Urnls dip stick/tabl et rgnt auto w/o microscopy Lidia Raza APRN.CNM Work Phone: Plan of Treatment Date Care Activity Detail Author Start: 2077 RSV Vaccine (1 - 1-dose 75+ series) RSV Vaccine (1 - 1-dose 75+ series) [facility] Start: 09-15-2027 Screening for malignant neoplasm of cervix Cervical Cancer Screening [facility] Start: 09-15-2025 GC (Gonorrhea) Screening (18-24) GC (Gonorrhea) Screening (18-24) [facility] Start: 09-15-2025 Screening for Chlamydia trachomatis Chlamydia Screening (18-) [facility] Start: 04-11-2025 Influenza vaccination [facility] Start: 03-30-2025 End: 03-30-2025 Patient encounter procedure 03/30/2025 2:30 PM EDT Routine Office Visit OB/Gynecology [address] [place] [address] Carolyn Richmond APRN.CNM [address] [place] [address] OB OB/Gynecology Comment on above: OB Start: 03-24-2025 End: 03-24-2025 Patient encounter procedure 03/24/2025 3:50 PM EDT Routine Office Visit OB/Gynecology [address] [address] Sharyn Rodriguez MD [address] [place] [address] OB OB/Gynecology Comment on above: OB Start: 03-17-2025 End: 03-17-2025 Patient encounter procedure 03/17/2025 3:10 PM EDT Routine Office Visit OB/Gynecology [address] [place] [address] Sharyn Rodriguez MD [address] [place] [address] OB OB/Gynecology Comment on above: OB Start: 03-09-2025 End: 03-09-2025 Patient encounter procedure 03/09/2025 3:15 PM EDT Routine Office Visit OB/Gynecology [address] [place] [address] Carolyn Richmond APRN.CNShania [address] [place] [address] OB OB/Gynecology Comment on above: OB Start: 03-03-2025 End: 03-03-2025 Patient encounter procedure Maternal Medicine Comment on above: Growth Growth /OB Start: 03-02-2025 End: 03-02-2025 Patient encounter procedure 03/02/2025 10:30 AM EDT Office Visit Allergy [address] [place] [address] [place] [id number] Capri Brown MD [address] [place] [address] PCN Testing, 36 wks Allergy Comment on above: PCN Testing, 36 wks Start: 02-25-2025 End: 02-25-2025 Patient encounter procedure 02/25/2025 2:50 PM EDT Routine Office Visit OB/Gynecology [address] [place] [address] Lizeth Tate MD [address] [place] [address] OB OB/Gynecology Comment on above: OB Start: 02-21-2025 End: 02-21-2025 Nutrition therapy 02/21/2025 9:30 AM EDT [facility] Nutrition Therapy [address] [place] [address] [place] [address] Dx: Gestational diabetes mellitus (GDM) in third trimester, gestational diabetes method of control unspecified (HCC) [O24.419] Nutrition Therapy Comment on above: Dx: Gestational diab etes mellitus (GDM) in third trimester, gestational diabetes method of control unspecified (HCC) [O24.419] Start: 02-16-2025 End: 02-16-2025 Patient encounter procedure 02/16/2025 2:30 PM EDT Routine Office Visit OB/Gynecology [address] [place] [address] Janeen Prather MD [address] [place] [address] OB OB/Gynecology Comment on above: OB Start: 02-02-2025 End: 02-02-2025 Patient encounter procedure Maternal Medicine Comment on above: Growth Growth/OB Start: 01-25-2025 End: 01-25-2025 Nursing evaluation of patient and report 01/25/2025 3:00 PM EDT Nurse Visit Endocrinology [address] [place] [address] Delroy Saucedo, PREETI [address] [id number] Dx: Gestational diabetes mellitus (GDM) in third trimester, gestational diabetes method of control unspecified (HCC) [O24.419] Endocrinology Comment on above: Dx: Gestational diab etes mellitus (GDM) in third trimester, gestational diabetes method of control unspecified (HCC) [O24.419] Start: 01-20-2025 End: 01-20-2025 Patient encounter procedure OB/Gynecology Comment on above: LUIS LUIS- see phone note regarding 3 hr glucose results and need for consults. Start: 01-20-2025 End: 04-21-2025 ANEMIA REFLEX PANEL ANEMIA REFLEX PANEL Lab Routine 25 weeks gestation of (HCC) Expected: 01/20/2025, Expires: 04/21/2025 [facility] Comment on above: Expected: 01/20/2025 , Expires: 04/21/2025 Start: 01-20-2025 End: 12-20-2025 GESTATIONAL GLUCOSE SCREEN, 1-HOUR, 50 GRAM, NON-FASTING GESTATIONAL GLUCOSE SCREEN, 1-HOUR, 50 GRAM, NON-FASTING Lab Routine Screening for diabetes mellitus Expected: 01/20/2025 (Approximate), Expires: 12/20/2025 [facility] Work Phone: Comment on above: Expected: 01/20/2025 (Approximate), Expires: 12/20/2025 Start: 01-20-2025 End: 12-20-2025 SYPHILIS TREPONEMAL W/REFLEX SYPHILIS TREPONEMAL W/REFLEX Lab Routine 25 weeks gestation of (HCC) Expected: 01/20/2025 (Approximate), Expires: 12/20/2025 [facility] Comment on above: Expected: 01/20/2025 (Approximate), Expires: 12/20/2025 Start: 01-20-2025 End: 04-21-2025 Thyrotropin [Units/volume] in Serum or Plasma THYROID STIMULATING HORMONE Lab Routine Hypothyroidism, unspecified type Expected: 01/20/2025, Expires: 04/21/2025 [facility] Comment on above: Expected: 01/20/2025 , Expires: 04/21/2025 Start: 01-20-2025 End: 04-21-2025 Thyroxine (T4) free [Mass/volume] in Serum or Plasma T4 FREE/FREE THYROXINE Lab Routine Hypothyroidism, unspecified type Expected: 01/20/2025, Expires: 04/21/2025 [facility] Comment on above: Expected: 01/20/2025 , Expires: 04/21/2025 Start: 01-19-2025 End: 01-19-2025 ambulatory 01/19/2025 8:00 AM EDT [facility] Endocrinology [address] [place] [id number] Emma Padgett MD [address] [place] [id number] Hypothyroidism, unspecified type [E03.9] Endocrinology Comment on above: Hypothyroidism, unsp ecified type [E03.9] Start: 01-05-2025 End: 04-06-2025 GEST GLUC WILMER, 3-HR, 100 GM, FASTING GEST GLUC WILMER, 3-HR, 100 GM, FASTING Lab Routine Elevated glucose Expected: 01/05/2025, Expires: 04/06/2025 [facility] Work Phone: Comment on above: Expected: 01/05/2025 , Expires: 04/06/2025 Start: 01-04-2025 End: 01-04-2025 Patient encounter procedure 01/04/2025 1:50 PM EDT Routine Office Visit OB/Gynecology [address] [place] [id number] Lizeth Tate MD [address] [place], [place] [address] OB OB/Gynecology Comment on above: OB Start: 01-04-2025 End: 01-04-2025 ambulatory 01/04/2025 1:30 PM EDT Results Only Serjio [facility] Laboratory [address] [place] [id number] Glucose Test [facility] Laboratory Comment on above: Glucose Test Start: 12-23-2024 End: 12-23-2024 ambulatory 12/23/2024 9:00 AM EDT [facility] Allergy [facility] [place] [address] Capri Brown MD [address] [facility] [place] [address] 25 weeks gestation of (HCC) [Z3A.25]; Penicillin allergy [Z88.0 Allergy Comment on above: 25 weeks gestation o f (HCC) [Z3A.25]; Penicillin allergy [Z88.0 Start: 12-20-2024 End: 12-20-2024 Patient encounter procedure OB/Gynecology Comment on above: OB - u/s after growth u/s - had felix delcid at [place] Start: 11-23-2024 End: 11-23-2024 Patient encounter procedure 11/23/2024 10:40 AM EDT Office Visit Endocrinology [address] [place] [id number] Emma Padgett MD [address], [place] [id number] Hypothyroidism, unspecified type [E03.9] Endocrinology Comment on above: Hypothyroidism, unsp ecified type [E03.9] Start: 11-23-2024 End: 11-23-2024 Patient encounter procedure 11/23/2024 8:40 AM EDT Routine Office Visit OB/Gynecology [address] [place] [id number] Janeen Prather MD [address] [place] [id number] Anatomy/OB OB/Gynecology Comment on above: Anatomy/OB Start: 11-17-2024 End: 11-16-2025 OBSTETRIC ULTRASOUND WHI OBSTETRIC ULTRASOUND WHI Anc Imaging Routine Encounter for anatomic survey (HCC) Expected: 11/17/2024, Expires: 11/16/2025 [facility] Work Phone: Comment on above: Expected: 11/17/2024 , Expires: 11/16/2025 Start: 11-10-2024 End: 11-10-2024 Patient encounter procedure Maternal Medicine Comment on above: Anatomy Anatomy/OB Start: 10-22-2024 End: 10-22-2024 Patient encounter procedure 10/22/2024 1:00 PM EDT Office Visit Endocrinology [address] [place] [id number] Emma Padgett MD [address] [place] [address] Hypothyroidism, unspecified type [E03.9] Endocrinology Comment on above: Hypothyroidism, unsp ecified type [E03.9] Start: 10-12-2024 End: 10-12-2024 Patient encounter procedure 10/12/2024 1:10 PM EST Routine Office Visit OB/Gynecology [address] [place] [address] Albert Swift MD [address] [place] [id number] OB OB/Gynecology Comment on above: OB Start: 09-30-2024 End: 12-30-2024 Chromosome 21 trisomy [Presence] in Blood or Tissue by Cytogenetics [id number] PLUS Lab Routine Encounter for screening of mother Expected: 09/30/2024, Expires: 12/30/2024 [facility] Work Phone: Comment on above: Expected: 09/30/2024 , Expires: 12/30/2024 Start: 09-27-2024 End: 09-27-2024 Patient encounter procedure Maternal Medicine Comment on above: Nuchal OB Start: 09-16-2024 End: 12-16-2024 Thyrotropin [Units/volume] in Serum or Plasma THYROID STIMULATING HORMONE Lab Routine Hypothyroidism, unspecified type Expected: 09/16/2024, Expires: 12/16/2024 [facility] Comment on above: Expected: 09/16/2024 , Expires: 12/16/2024 Start: 09-16-2024 End: 12-16-2024 Thyroxine (T4) free [Mass/volume] in Serum or Plasma T4 FREE/FREE THYROXINE Lab Routine Hypothyroidism, unspecified type Expected: 09/16/2024, Expires: 12/16/2024 [facility] Comment on above: Expected: 09/16/2024 , Expires: 12/16/2024 Start: 09-15-2024 End: 12-15-2024 ANEMIA REFLEX PANEL ANEMIA REFLEX PANEL Lab Routine with uncertain dates, antepartum Expected: 09/15/2024, Expires: 12/15/2024 [facility] Work Phone: Comment on above: Expected: 09/15/2024 , Expires: 12/15/2024 Start: 09-15-2024 End: 12-15-2024 Hemoglobin A1c in Blood HEMOGLOBIN A1C Lab Routine with uncertain dates, antepartum Expected: 09/15/2024, Expires: 12/15/2024 [facility] Comment on above: Expected: 09/15/2024 , Expires: 12/15/2024 Start: 09-15-2024 End: 12-15-2024 Hepatitis B virus surface Ag [Presence] in Serum HEPATITIS B SURFACE ANTIGEN Lab Routine with uncertain dates, antepartum Expected: 09/15/2024, Expires: 12/15/2024 [facility] Comment on above: Expected: 09/15/2024 , Expires: 12/15/2024 Start: 09-15-2024 End: 12-15-2024 Hepatitis C virus Ab [Presence] in Serum HEPATITIS C ANTIBODY IA WITH CONFIRMATION Lab Routine with uncertain dates, antepartum Expected: 09/15/2024, Expires: 12/15/2024 [facility] Comment on above: Expected: 09/15/2024 , Expires: 12/15/2024 Start: 09-15-2024 End: 12-15-2024 HIV 1+2 Ab [Presence] in Serum or Plasma by Immunoassay HIV 1/2 COMBO WITH REFLEX TO DIFFERENTIATION Lab Routine with uncertain dates, antepartum Expected: 09/15/2024, Expires: 12/15/2024 [facility] Comment on above: Expected: 09/15/2024 , Expires: 12/15/2024 Start: 09-15-2024 End: 09-15-2025 OBSTETRIC ULTRASOUND WHI OBSTETRIC ULTRASOUND WHI Anc Imaging Routine with uncertain dates, antepartum Expected: 09/15/2024, Expires: 09/15/2025 [facility] Comment on above: Expected: 09/15/2024 , Expires: 09/15/2025 Start: 09-15-2024 End: 12-15-2024 RUBELLA IGG ANTIBODY RUBELLA IGG ANTIBODY Lab Routine with uncertain dates, antepartum Expected: 09/15/2024, Expires: 12/15/2024 [facility] Comment on above: Expected: 09/15/2024 , Expires: 12/15/2024 Start: 09-15-2024 End: 12-15-2024 SYPHILIS TREPONEMAL W/REFLEX SYPHILIS TREPONEMAL W/REFLEX Lab Routine with uncertain dates, antepartum Expected: 09/15/2024, Expires: 12/15/2024 [facility] Comment on above: Expected: 09/15/2024 , Expires: 12/15/2024 Start: 09-15-2024 End: 12-15-2024 THYROID PEROXIDASE ANTIBODY THYROID PEROXIDASE ANTIBODY Lab Routine Hypothyroidism, unspecified type Expected: 09/15/2024, Expires: 12/15/2024 [facility] Comment on above: Expected: 09/15/2024 , Expires: 12/15/2024 Start: 09-15-2024 End: 12-15-2024 TYPE + SCREEN TYPE + SCREEN Blood Bank Routine with uncertain dates, antepartum Expected: 09/15/2024, Expires: 12/15/2024 [facility] Comment on above: Expected: 09/15/2024 , Expires: 12/15/2024 Start: 09-15-2024 End: 09-15-2024 Patient encounter procedure 09/15/2024 1:00 PM EST Initial Office Visit OB/Gynecology [address] [place] [id number] Lidia Raza APRN.CNM [address] [place] [id number] lmp 06/22/24- Patient has Tachycardia/ Referral in scan doc OB/Gynecology Comment on above: lmp 06/22/24- Patien t has Tachycardia/ Referral in scan doc Start: 04-11-2024 Covid-19 Vaccine ( season) Covid-19 Vaccine ( season) [facility] Start: 04-11-2024 Influenza vaccination Influenza Vacc ine (#1) [facility] Start: 2023 Screening for malignant neoplasm of cervix Cervical Cancer Screening [facility] Start: 2021 Hepatitis B Vaccine (1 of 3 - 19+ 3-dose series) Hepatitis B Vaccine (1 of 3 - 19+ 3-dose series) [facility] Start: 2021 Urine microalbumin profile DTaP,Tdap,Td Vaccine (1 - Tdap) [facility] Start: 2020 Annual PCP Team Chronic Disease Visit Annual PCP Team Chronic Disease Visit [facility] Start: 2020 Anxiety Screening Anxiety Screening [facility] Start: 2020 Depression Screening Depression Scre ening [facility] Start: 2020 GC (Gonorrhea) Screening (18-24) GC (Gonorrhea) Screening (18-24) [facility] Start: 2020 Hepatitis C screening Hepatitis C Sc reening [facility] Start: 2020 HIV screening HIV Screening [facility] Start: 2020 Screening for Chlamydia trachomatis Chlamydia Screening (18-24) [facility] Start: 2018 Meningococcal B Vaccine (1 of 2 - Standard) Meningococcal B Vaccine (1 of 2 - Standard) [facility] Start: 2018 Meningococcal B Vaccine: Consider Based On Risk (1 of 2 - Patient Seeks Protection) Meningococcal B Vaccine: Consider Based On Risk (1 of 2 - Patient Seeks Protection) [facility] Start: 2017 HPV Vaccine (1 - 3-dose series) HPV Vaccine (1 - 3-dose series) [facility] Start: 2016 Peds To Adult Transition Annual Assessment Peds To Adult Transition Annual Assessment [facility] Start: 2014 Peds To Adult Transition Initial Discussion Peds To Adult Transition Initial Discussion [facility] ALLERGEN SKIN TEST-PENICILLIN ALLERGEN SKIN TEST-PENICILLIN Procedures Routine Adverse effect of drug, subsequent encounter Allergy to penicillin Ordered: 03/02/2025 [facility] Work Phone: Comment on above: Ordered: 03/02/2025 Bacteria identified in Urine by Culture BACTERIAL CULTURE, URINE Microbiology Routine with uncertain dates, antepartum 09/15/2024 2:10 PM [facility] Bacteria identified in Urine by Culture BACTERIAL CULTURE, URINE Microbiology Routine UTI (urinary tract infection) in , antepartum 10/14/2024 2:22 PM [facility] Work Phone: Bacteria identified in Urine by Culture BACTERIAL CULTURE, URINE Microbiology Routine UTI (urinary tract infection) in , antepartum ([facility]) Ordered: 01/20/2025 [facility] Work Phone: Comment on above: Ordered: 01/20/2025 BACTERIAL VAGINOSIS NAAT BACTERIAL VAGINOSIS NAAT Lab Routine with uncertain dates, antepartum Vaginal discharge 09/15/2024 2:51 PM [facility] OSCAR/TRICHOMONAS NAAT OSCAR/TRICHOMONAS NAAT Lab Routine with uncertain dates, antepartum Vaginal discharge 09/15/2024 2:51 PM [facility] Chlamydia trachomatis+Neisseria gonorrhoeae DNA [Presence] in Unspecified specimen by DILIP with probe detection GONORRHEA/CHLAMYDIA NAAT Lab Routine with uncertain dates, antepartum 09/15/2024 2:10 PM [facility] End: 01-18-2026 OBSTETRIC ULTRASOUND WHI OBSTETRIC ULTRASOUND WHI Anc Imaging Routine Gestational diabetes mellitus (GDM) in third trimester, gestational diabetes method of control unspecified (HCC) Once per month for 5 Occurrences starting 01/18/2025 until 01/18/2026 [facility] Work Phone: Comment on above: Once per month for 5 Occurrences starting 01/18/2025 until 01/18/2026 PAP TEST PAP TEST Lab Skylar gan Encounter for screening for malignant neoplasm of cervix 09/15/2024 2:51 PM EST [facility] UA DIP B/O UA DIP B/O Lab R outine Urinary tract infection without hematuria, site unspecified Ordered: 09/15/2024 [facility] Comment on above: Ordered: 09/15/2024 Payers Date Payer Category Payer Self-pay 2024 Medicaid [id number] 2024 Unknown [id number] 2002 Unknown [id number] 2.16.8 [id number] 2002 Unknown [id number] 2.16.8 [id number] 2002 Unknown [id number] 2.16.8 [id number] 2002 Unknown [id number] 2.16.8 [id number] 2002 Unknown [id number] 2.16.8 [id number] 2002 Unknown [id number] 2.16.8 [id number] 2002 Unknown [id number] 2.16.8 [id number] 2002 Unknown [id number] 2.16.8 [id number] Unknown [id number] 2.16.8 [id number] Unknown [id number] 2.16.8 [id number] Unknown [id number] 2.16.8 [id number] Unknown [id number] 2.16.8 [id number] Social History Date Type Detail Facility Tobacco smoking stat us NHIS Tobacco smoking consumption unknown [facility] Work Phone: Start: 2002 Sex assigned at Not on file [facility] Start: 09-15-2024 End: 09-27-2024 Gender identity Not on file [facility] Start: 09-15-2024 End: 09-27-2024 History of Social function [facility] Start: 12-04-2023 National Score (1-100), lower number is lower risk 50 [facility] Start: 09-09-2024 End: 09-15-2024 Tobacco smoking status AKIS Never smoked tobacco [facility] Start: 09-15-2024 Tobacco use and exposure Smokeless tobacco non-user [facility] Start: 09-16-2024 End: 03-24-2025 Alcoholic beverage intake Lifetime non-drinker (finding) [facility] Start: 07-06-2024 [facility] Start: 2000 Sex Assigned At Female W [facility] (I/We) worried wheth er (my/our) food would run out before (I/we) got money to buy more. Never true [facility] Medical Equipment Procedure Code Equipment Code Equipment Origin al Text Equipment Identifier Dates Use as directed to check glucose levels up to seven times daily. [id number] Start: 01-18-2025 Use as directed to check glucose levels up to seven times daily. [id number] Start: 01-18-2025 Goals Date Patient Goal Desired Activity /State Personal health goal Clinical Notes 08-19-2024 to 03-25-2025 Telephone Encounter - Lizeth Gleason RN - 03/25/2025 4:05 PM EDTTelephone Encounter - Lizeth Gleason RN - 03/25/2025 4:05 PM EDTTelephone Encounter - Anh Olson RN - 03/25/2025 12:41 PM EDT Note Date & Type Note Facility 03-25-2025 Telephone encounter Note Induction moved to 03/28. Patient aware. Lizeth Gleason RN [facility] 03-25-2025 Miscellaneous Notes Induction moved to 03/28. Patient aware. Lizeth Gleason RN Could be moved to Friday however there may not be any available times slots at this point Ob is 39w3d patient called c/o brownish-red spotting today and on-going lower back pain and pelvic pressure. Denies LOF, baby active. Patient had pelvic exam yesterday at ob appointment. Patient is scheduled for an induction 03/29 at 7pm. Patient asking if induction can be moved to 03/28/25 or this weekend? documented in this encounter [facility] 03-25-2025 Telephone encounter Note Could be moved to Friday however there may not be any available times slots at this point [facility] Work Phone: 03-25-2025 Telephone encounter Note Ob is 39w3d patient called c/o brownish-red spotting today and on-going lower back pain and pelvic pressure. Denies LOF, baby active. Patient had pelvic exam yesterday at ob appointment. Patient is scheduled for an induction 03/29 at 7pm. Patient asking if induction can be moved to 03/28/25 or this weekend? [facility] 03-25-2025 Telephone encounter Note Patient is scheduled 03/29 for induction of labor. Lizeth Gleason RN [facility] 03-25-2025 Miscellaneous Notes Patient is scheduled 03/29 for induction of labor. Lizeth Gleason RN Patient was seen 03/24/[address] Rodriguez. She was to call back with a preferred induction date. Patient calling back stating she would like to be induced on 03/29/2025. Any other dates would work but wants to avoid 03/28/2025 documented in this encounter [facility] 03-25-2025 Telephone encounter Note Patient was seen 03/24/[address] Rodriguez. She was to call back with a preferred induction date. Patient calling back stating she would like to be induced on 03/29/2025. Any other dates would work but wants to avoid 03/28/2025 [facility] 03-24-2025 Progress note Formatting of t his note might be different from the original. SW- Pt doing well. Some pressure but no ctx's. No vb, lof. Good FM PE: Gen- NAD, well appearing Abd- Soft, gravid, NT See flowsheet A/p 39 wk gestation - A1GDM: Good control. Repeat growth US was not scheduled. Discussed delivery timing. Patient's mother is a support person and has off of work next week/week of 03/28/25. Patient would like induction of labor to receive help from her mother, as well as transportation from her mother given transportation issues. Patient is not certain what day she would like her induction. Discussed r/b/a induction and consent signed. Reviewed process of induction. Patient was instructed to call the office tomorrow with when she would like the induction - Labor precautions reviewed Sharyn Rodriguez DO [facility] 03-24-2025 Miscellaneous Notes SW- Pt doing well. Some pressure but no ctx's. No vb, lof. Good FM PE: Gen- NAD, well appearing Abd- Soft, gravid, NT See flowsheet A/p 39 wk gestation - A1GDM: Good control. Repeat growth US was not scheduled. Discussed delivery timing. Patient's mother is a support person and has off of work next week/week of 03/28/25. Patient would like induction of labor to receive help from her mother, as well as transportation from her mother given transportation issues. Patient is not certain what day she would like her induction. Discussed r/b/a induction and consent signed. Reviewed process of induction. Patient was instructed to call the office tomorrow with when she would like the induction - Labor precautions reviewed Sharyn Rodriguez DO documented in this encounter [facility] 03-24-2025 Instructions Deb Weiss MA - 03/24/2025 3:55 PM EDT SEQUENTIAL SCREENINGS The [facility] offers sequential screenings for women who are interested in screenings for chromosomal abnormalities and certain defects during a . The sequential screen combines ultrasound and blood tests to determine the risk of chromosomal abnormalities, including Down's Syndrome (Trisomy 21) and Trisomy 18, as well as open neural tube defects including spina bifida. Ultrasound examination is performed between 11 weeks and 13 weeks gestational age. Blood tests are drawn after the ultrasound and again later in the between 15 and 21 weeks gestational age. Please let your physician know if you are interested in this testing. It will require an appointment with our environmental science technician. This is not an ultrasound performed by a physician in our office during a routine visit. SIGNS AND SYMPTOMS OF LABOR 1. Contractions every 10 minutes or more often 2. Clear, pink, or brownish fluid (water) leaking from vagina 3. Feeling that baby is pushing down, pressure 4. Low, dull backache 5. Cramps that feel like a period 6. Cramps with or without diarrhea If you notice any of the above symptoms, contact our office at [phone] and ask to speak with a nurse. After hours, you can call doctors registry at [phone] OR call [facility] at [phone] and ask to have the doctor school admissions representative paged. If you consider this an emergency, dial 9-- or go to your nearest emergency department. NEED HELP? Are you dealing with a violent or abusive relationship? Are you a victim of rape or sexual assult? Call [facility] ([place]) 24 hour Crisis Hotline: 624.209.3075 or 231-817-2477. MANUAL Your Guide to a Healthy manual is now on-line. Visit [email or web address] [email or web address] to download your free copy documented in this encounter [facility] 03-22-2025 Progress note Formatting of t his note might be different from the original. BLADIMIR-S: López Bravo is a 24 year old female who presents at 39w0d with HOOD:03/29/2025, by Last Menstrual Period for a routine visit. Denies headache, visual changes, chest pain, shortness of breath, vaginal bleeding, leakage of fluid, or dysuria. Feeling well, no complaints. O: See flow sheet Gen: No apparent distress Abd: Gravid, nontender BG levels normal ASSESSMENT/PLAN: 1. Supervision of high risk in third trimester -GBS today -Continue PNV and ASA 2. 37 weeks gestation of 3. Diet controlled gestational diabetes mellitus (GDM) in third trimester -Good control, growth US at 39 wk 4. Hypothyroidism, unspecified type -thyroid studies 03/03, no medication at this time. Labor precautions reviewed and when to call RTO in 1 week Lidia Raza APRN.CNM [facility] 03-22-2025 Miscellaneous Notes BLADIMIR-S: López Bravo is a 24 year old female who presents at 39w0d with HOOD:03/29/2025, by Last Menstrual Period for a routine visit. Denies headache, visual changes, chest pain, shortness of breath, vaginal bleeding, leakage of fluid, or dysuria. Feeling well, no complaints. O: See flow sheet Gen: No apparent distress Abd: Gravid, nontender BG levels normal ASSESSMENT/PLAN: 1. Supervision of high risk in third trimester -GBS today -Continue PNV and ASA 2. 37 weeks gestation of 3. Diet controlled gestational diabetes mellitus (GDM) in third trimester -Good control, growth US at 39 wk 4. Hypothyroidism, unspecified type -thyroid studies 03/03, no medication at this time. Labor precautions reviewed and when to call RTO in 1 week Lidia Raza APRN.CNM documented in this encounter [facility] 03-18-2025 Note HNO ID: [id number] Author: JORGE BERMUDEZ, ? Service: ? 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 Author Type: Physician Type: Progress Notes Filed: 03/18/2025 08:23 Note Text: SW- Pt doing well. No ctx, vb, lof. Good FM PE: Gen- NAD, well appearing Abd- Soft, gravid, NT See flowsheet A/p 38 wk gestation - A1GDM: BG well controlled. Growth US completed - Discussed r/b/a IOL and patient declines scheduling today. Desires spontaneous onset labor and unmedicated . Discussed would not go past 40w6d - RTO 1 wk Sharyn Rodriguez DO [facility] 03-16-2025 Note HNO ID: [id number] Author: JORGE BERMUDEZ, ? Service: ? 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 Service: ? Author Type: Patient Active Directory Architect Type: Progress Notes Filed: 03/15/2025 09:11 Note Text: POPULATION HEALTH NAVIGATION OUTREACH Action/FYI Unable to leave message to add electrical installation supervisor to OB provider field, verify/est pcp My chart sent Reason for Outreach Medicaid OB/Peds Care Gaps due: to PCP Visit Patient Contacted: Unable or unnecessary to reach patient: Unable to reach patient Unable to leave message [employer] message sent Navigation Signature: Jorge Bermudez Population Qustodian Navignate March 15, 2025 9:10 AM [facility] 03-15-2025 History of Presen t illness Narrative POPULATION HEALTH NAVIGATION OUTREACH Action/FYI Unable to leave message to add electrical installation supervisor to OB provider field, verify/est pcp My chart sent Reason for Outreach Medicaid OB/Peds Care Gaps due: to PCP Visit Patient Contacted: Unable or unnecessary to reach patient: Unable to reach patient Unable to leave message [employer] message sent Navigation Signature: Jorge Bermudez Population Health Navignate March 15, 2025 9:10 AM documented in this encounter [facility] 03-15-2025 Note Patient Outreach (NE TNAV) LÓPEZ BRAVO ([id number]) 4 F Date Time Provider Department 03/15/25 JORGE BERMUDEZ During your visit today, we recorded the following information about you: Jorge Bermudez 03/15/2025 9:11 AM Signed POPULATION HEALTH NAVIGATION OUTREACH Action/FYI Unable to leave message to add electrical installation supervisor to OB provider field, verify/est pcp My chart sent Reason for Outreach Medicaid OB/Peds Care Gaps due: to PCP Visit Patient Contacted: Unable or unnecessary to reach patient: Unable to reach patient Unable to leave message [employer] message sent Navigation Signature: Jorge Bermudez Glassbeam Navigator March 15, 2025 9:10 AM Jorge Bermudez 03/16/2025 8:25 AM Addendum POPULATION HEALTH NAVIGATION OUTREACH Action/FYI 3rd attempt unable to leave message to add electrical installation supervisor to ob provider field Reason for Outreach Medicaid OB/Peds Care Gaps due: to PCP Visit Patient Contacted: Unable or unnecessary to reach patient: Unable to reach patient Unable to leave message Navigation Signature: Jorge Bermudez Glassbeam Navignate March 16, 2025 8:22 AM Jorge Bermudez 03/18/2025 7:31 AM Signed POPULATION HEALTH NAVIGATION OUTREACH Action/FYI Patient responded via my chart is researching 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 installation supervisor in [facility] Reason for Outreach Medicaid OB/Peds Care Gaps due: to PCP Visit Patient Contacted: Spoke to patient/parent/or legal guardian Patient identified by name and : Yes Medicaid OB/Peds actions taken: Patient declined: Patient requested call back from navigator/ will call navigator back Navigation Signature: Jorge Bermudez Glassbeam Navigator March 18, 2025 7:30 AM Allergies As of Date: 03/15/2025 Noted Allergy Reaction GARDASIL (H PAPILLOMAVIRUS VAC,QV*12/23/2024 14 - Other: See Comments Comments: Made her legs wobbly and tired for 3 days Date Reviewed: 03/11/2025 Reviewed by: Kayla Esteban MA - Fully Assessed Reason for Visit: Population Health Navigation Outreach [3910] Cmt: to PCP/OB Prescriptions as of 03/18/2025 - VITAMIN 27 mg iron- 0.8 mg tablet Take 1 tablet by mouth every afternoon. - pantoprazole DR (PROTONIX) 20 mg tablet Take 1 tablet by mouth once daily. - blood sugar diagnostic test strip Use as directed to check glucose levels up to seven times daily. - Lancets Use as directed to check glucose levels up to seven times daily. - alcohol swabs (ALCOHOL PREP PADS) Use as directed to check glucose levels up to seven times daily. - metoprolol succinate ER (TOPROL XL) 50 mg 24 hr tablet Take 1 tablet by mouth two times a day. - aspirin, enteric coated (ECOTRIN LOW STRENGTH) 81 mg EC tablet Take 1 tablet by mouth once daily. Problem List As Of Date 03/15/2025 Noted Resolved Supervision of high risk in first tri*09/16/2024 Other specified hypothyroidism [E03.8] 09/16/2024 Tachycardia [R00.0] 09/16/2024 UTI (urinary tract infection) in , ant*09/16/2024 Penicillin allergy [Z88.0] 09/20/2024 Elevated glucose [R73.09] 01/05/2025 Diet controlled gestational diabetes mellitus (*01/20/2025 Group B Streptococcus carrier, antepartum (HCC)*03/13/2025 Encounter Status:Closed by JORGE BERMUDEZ on 03/15/25 [facility] 03-11-2025 Instructions Kayla Esteban MA - 03/11/2025 2:30 PM EDT SEQUENTIAL SCREENINGS The [facility] offers sequential screenings for women who are interested in screenings for chromosomal abnormalities and certain defects during a . The sequential screen combines ultrasound and blood tests to determine the risk of chromosomal abnormalities, including Down's Syndrome (Trisomy 21) and Trisomy 18, as well as open neural tube defects including spina bifida. Ultrasound examination is performed between 11 weeks and 13 weeks gestational age. Blood tests are drawn after the ultrasound and again later in the between 15 and 21 weeks gestational age. Please let your physician know if you are interested in this testing. It will require an appointment with our environmental science technician. This is not an ultrasound performed by a physician in our office during a routine visit. SIGNS AND SYMPTOMS OF LABOR 1. Contractions every 10 minutes or more often 2. Clear, pink, or brownish fluid (water) leaking from vagina 3. Feeling that baby is pushing down, pressure 4. Low, dull backache 5. Cramps that feel like a period 6. Cramps with or without diarrhea If you notice any of the above symptoms, contact our office at [phone] and ask to speak with a nurse. After hours, you can call doctors registry at [phone] OR call [facility] at [phone] and ask to have the doctor school admissions representative paged. If you consider this an emergency, dial 7-9-3 or go to your nearest emergency department. NEED HELP? Are you dealing with a violent or abusive relationship? Are you a victim of rape or sexual assult? Call [facility] ([place]) 24 hour Crisis Hotline: 672.127.6534 or 983-129-6904. MANUAL Your Guide to a Healthy manual is now on-line. Visit [email or web address] to download your free copy documented in this encounter [facility] 03-04-2025 Note Indication Evaluation of growth Limited care, Gestational diabetes - diet controlled Impression remote read - Single, live, intrauterine . - presentation is cephalic. - The biometry is consistent with the assigned gestational dating. - The EFW is 2448 g, at the 13%. AC is at the 26%. - Amniotic fluid volume is normal amount with an MVP of 4.2 cm and DONAVON of 13.2 cm. - The placenta is posterior, fundal. - No malformations visualized on a limited survey as detailed below. Recommendations Additional follow-up as clinically indicated. Maternal Assessment Height 157 cm Height (ft) 5 ft Height (in) 2 in Physical Exam Initial weight (lb) 162 lb Initial BMI 29.63 kg/m Method Transabdominal ultrasound examination [place] . Number of fetuses: 1 Dating LMP on: 06/22/2024 GA by LMP 36 w + 2 d HOOD by LMP: 03/29/2025 GA by prior assessment 36 w + 2 d HOOD by prior assessment: 03/29/2025 Ultrasound examination on: 03/03/2025 GA by U/S based upon: AC, BPD, Femur, HC GA by U/S 34 w + 2 d HOOD by U/S: 04/12/2025 Assigned: based on stated HOOD, selected on 12/20/2024 Assigned GA 36 w + 2 d Assigned HOOD: 03/29/2025 General Evaluation Cardiac activity present. FHR 133 bpm. movements: present. Presentation: cephalic Placenta: Placental site: posterior, fundal Umbilical cord: Cord vessels: 3 vessel cord. Insertion site: normal insertion Amniotic fluid: Amount of AF: normal amount. MVP 4.2 cm. DONAVON 13.2 cm. Q1 2.5 cm, Q2 3.0 cm, Q3 4.2 cm, Q4 3.6 cm Growth Overview Exam date GA BPD (mm) HC (mm) AC (mm) FL (mm) HL (mm) EFW (g) 12/20/2024 25w 6d 64.4 46% 231.1 26% 217.6 53% 46.4 48% 40.6 10% 852 36% 02/02/2025 32w 1d 78.6 24% 291.5 32% 282.2 52% 58.5 18% 1820 27% 03/03/2025 36w 2d 87.1 28% 304.5 7% 311.3 26% 66.1 17% 2448 13% Biometry Standard BPD 87.1 mm 35w 1d 28% Hadlock OFD 105.1 mm 31w 0d 4% Nicolaides HC 304.5 mm 33w 0d 7% Gini AC 311.3 mm 35w 0d 26% Hadlock Femur 66.1 mm 33w 5d 17% Gini EFW 2,448 g 34w 2d 13% Hadlock EFW (lb) 5 lb EFW (oz) 6 oz EFW by: Hadlock (HC-AC-FL) Extended Hand Ii Tube Bender 5.6 mm Extremities / Bony Struc FL / HC 0.22 Other Structures FHR 133 bpm Anatomy Lateral ventricles: normal Cavum septi pellucidi: normal Cerebellum: normal Cisterna magna: normal 4-chamber view: normal RVOT view: normal LVOT view: normal 3-vessel view: suboptimally visualized Heart / Thorax Situs: situs solitus (normal) Diaphragm: normal Stomach: normal Kidneys: normal Bladder: normal Wants to know sex: yes Performed By: Ileana Henderson RDMS Read By: Devorah Washington M.D. [facility] 03-03-2025 Progress note Formatting of t his note might be different from the original. RR- VB No. LOF No. CTXS No. Movement: present. Other c/o: No. Medication list reviewed. SENSITIVE EXAM: Sensitive exam not performed. Physical Exam See Flow Sheet Abd: soft, nontender, gravid Ext: edema: Trace A/P 36w2d Estimated Date of Delivery: 03/29/25 Assessment & Plan Supervision of high risk in third trimester ([facility]) Orders: URINE OB DIP B/O Diet controlled gestational diabetes mellitus (GDM) in third trimester ([facility]) US today, final report pending. BS log reviewed, excellent control Orders: URINE OB DIP B/O Hypothyroidism, unspecified type TSH due today Orders: URINE OB DIP B/O Had amoxicillin yesterday so defer gbs until next visit kick counts f/u in 1 week or prn urine dip reviewed cont. PNV Albert Swift M.D. [facility] 03-03-2025 Miscellaneous Notes RR- VB No. LOF No. CTXS No. Movement: present. Other c/o: No. Medication list reviewed. SENSITIVE EXAM: Sensitive exam not performed. Physical Exam See Flow Sheet Abd: soft, nontender, gravid Ext: edema: Trace A/P 36w2d Estimated Date of Delivery: 03/29/25 Assessment & Plan Supervision of high risk in third trimester ([facility]) Orders: URINE OB DIP B/O Diet controlled gestational diabetes mellitus (GDM) in third trimester ([facility]) US today, final report pending. BS log reviewed, excellent control Orders: URINE OB DIP B/O Hypothyroidism, unspecified type TSH due today Orders: URINE OB DIP B/O Had amoxicillin yesterday so defer gbs until next visit kick counts f/u in 1 week or prn urine dip reviewed cont. PNV Albert Swift M.D. documented in this encounter [facility] 03-03-2025 Instructions Isabel Guzmán СЕРГЕЙ - 03/03/2025 1:05 PM EDT SEQUENTIAL SCREENINGS The [facility] offers sequential screenings for women who are interested in screenings for chromosomal abnormalities and certain defects during a . The sequential screen combines ultrasound and blood tests to determine the risk of chromosomal abnormalities, including Down's Syndrome (Trisomy 21) and Trisomy 18, as well as open neural tube defects including spina bifida. Ultrasound examination is performed between 11 weeks and 13 weeks gestational age. Blood tests are drawn after the ultrasound and again later in the between 15 and 21 weeks gestational age. Please let your physician know if you are interested in this testing. It will require an appointment with our environmental science technician. This is not an ultrasound performed by a physician in our office during a routine visit. SIGNS AND SYMPTOMS OF LABOR 1. Contractions every 10 minutes or more often 2. Clear, pink, or brownish fluid (water) leaking from vagina 3. Feeling that baby is pushing down, pressure 4. Low, dull backache 5. Cramps that feel like a period 6. Cramps with or without diarrhea If you notice any of the above symptoms, contact our office at [phone] and ask to speak with a nurse. After hours, you can call doctors registry at [phone] OR call [facility] at [phone] and ask to have the doctor school admissions representative paged. If you consider this an emergency, dial 9-1-1 or go to your nearest emergency department. NEED HELP? Are you dealing with a violent or abusive relationship? Are you a victim of rape or sexual assult? Call [facility] ([place]) 24 hour Crisis Hotline: 490.220.4876 or 867-833-8446. MANUAL Your Guide to a Healthy manual is now on-line. Visit [email or web address] to download your free copy documented in this encounter [facility] 03-02-2025 Instructions Capri Brown MD - 03/02/2025 2:22 PM EDT Congratulations! you have passed the amoxicillin challenge. This means you are not currently allergic to penicillins and can take penicillins if needed in the future. This test proves that you do not have a classic allergy to penicillins and are not at increased risk for severe allergic reactions like anaphylaxis. It is possible to have a different type of reaction, called a delayed type reaction, to penicillins. A delayed type reaction causes a rash after multiple days or even weeks of taking the medicine. -These types of rashes are not life threatening and are usually self limited meaning they go away on their own. You can take Zyrtec or Ani for those reactions. There is no way to predict whether you would have any delayed reaction so we will need to have you monitor for any reactions once you leave. Please call us or send a [employer] message if that happens documented in this encounter [facility] 03-02-2025 Note HNO ID: [id number] Author: MONTSERRAT VALDEZ RN Service: ? Author Type: Registered Nurse Type: Progress Notes Filed: 03/02/2025 20:40 Note Text: ANTIBIOTIC PERCUTANEOUS AND INTRADERMAL SKIN TESTING/ Mean Wheal AND Flare Diameter (mm) Patient has been identified by name and date of : Yes . Skin test applied by : Montserrat Valdez RN Interpreted By: Capri Brown MD * Clinical significant reactions are regarded as a wheal diameter greater than or equal to 3 mm with a flare diameter greater or equal to 6mm. Time Prick test applied: 1145 Time Intradermal test applied: 1207 Time Prick test read: 1200 Time Intradermal test read: 1222 ALLERGENS Negative Control (50% glycerin/50% cocas for prick and HSA for intradermal) P: W = 0 mm F = 0 mm ID:W = 0 mm F = 0 mm PENICILLIN GK 10,000 UNITS/ML [facility]: 9668-3288-93 LOT: [id number] Exp: 10/08/2025 P: W = 0 mm F = 0 mm ID: W = 0 mm F = 0 mm PREPEN -(benzylpenicilloyl polylysine) full strength [facility]: 22968-975-80 LOT: [id number] Exp: 09/10/2025 P: W = 0 mm F = 0 mm ID: W = 0 mm F = 0 mm AMPICILLIN SODIUM 12.5mg/ml [facility]: 8390-9690-22 LOT: [id number] Exp: 01/08/2027 P: W = 0 mm F = 0 mm ID: W = 0 mm F = 0 mm HISTAMINE- positive control (Histamine base 6mg/ml)for Prick and 0.1 mg/ml for intradermal P: W = 3 mm F = 9 mm Hydrocortisone cream applied per patients request and orders. Amoxicillin Oral Challenge Amoxicillin obtained from [employer] 1115 Informed consent for Amoxicillin oral challenge obtained by Capri Brown MD 1230 patient given jesús crackers prior to starting direct oral challenge 1244 Amoxicillin (Licensed Practical Nurse: Hikma, NDC: [id number] , Lot #: [id number], Expiration: 08/10/2026) 25 mg/0.5 ml oral suspension po given per Capri Brown MD's orders. 1314 Patient without signs of symptoms of allergic reaction. 1318 Amoxicillin (Licensed Practical Nurse: Hikma, NDC: [id number] , Lot #: [id number], Expiration: 08/10/2026) 225 mg/4.5 ml oral suspension po given per Capri Brown MD's orders. 1418 Pt. without signs or symptoms of allergic reaction. 1419 Vitals Obtained post challenge. 107/73 BP, 108 HR, 16 RR, 98 SpO2, 36.8 T Pt. seen by Capri Brown MD prior to leaving the office. Montserrat Valdez RN [facility] 03-02-2025 History of Presen t illness Narrative ANTIBIOTIC PERCUTANEOUS AND INTRADERMAL SKIN TESTING/ Mean Wheal & Flare Diameter (mm) Patient has been identified by name and date of : Yes . Skin test applied by : Montserrat Valdez RN Interpreted By: Capri Brown MD * Clinical significant reactions are regarded as a wheal diameter greater than or equal to 3 mm with a flare diameter greater or equal to 6mm. Time Prick test applied: 1145 Time Intradermal test applied: 1207 Time Prick test read: 1200 Time Intradermal test read: 1222 ALLERGENS Negative Control (50% glycerin/50% cocas for prick and HSA for intradermal) P: W = 0 mm F = 0 mm ID:W = 0 mm F = 0 mm PENICILLIN GK 10,000 UNITS/ML [facility]: 4043-6783-67 LOT: [id number] Exp: 10/08/2025 P: W = 0 mm F = 0 mm ID: W = 0 mm F = 0 mm PREPEN -(benzylpenicilloyl polylysine) full strength ND: 82124-547-10 LOT: [id number] Exp: 09/10/2025 P: W = 0 mm F = 0 mm ID: W = 0 mm F = 0 mm AMPICILLIN SODIUM 12.5mg/ml [facility]: 5133-6368-69 LOT: [id number] Exp: 01/08/2027 P: W = 0 mm F = 0 mm ID: W = 0 mm F = 0 mm HISTAMINE- positive control (Histamine base 6mg/ml)for Prick and 0.1 mg/ml for intradermal P: W = 3 mm F = 9 mm Hydrocortisone cream applied per patients request and orders. Amoxicillin Oral Challenge Amoxicillin obtained from [employer] 1115 Informed consent for Amoxicillin oral challenge obtained by Capri Brown MD 1230 patient given jesús crackers prior to starting direct oral challenge 1244 Amoxicillin (Licensed Practical Nurse: PurpleTealkma, NDC: [id number] , Lot #: [id number], Expiration: 08/10/2026) 25 mg/0.5 ml oral suspension po given per Capri Brown MD's orders. 1314 Patient without signs of symptoms of allergic reaction. 1318 Amoxicillin (Licensed Practical Nurse: PurpleTealkma, NDC: [id number] , Lot #: [id number], Expiration: 08/10/2026) 225 mg/4.5 ml oral suspension po given per Capri Brown MD's orders. 1418 Pt. without signs or symptoms of allergic reaction. 1419 Vitals Obtained post challenge. 107/73 BP, 108 HR, 16 RR, 98 SpO2, 36.8 T Pt. seen by Capri Brown MD prior to leaving the office. Montserrat Valdez RN Images from the original note were not included. Allergy and Immunology All aspects of this note have been reviewed and updated López Bravo is a 24 year old female who was last seen by me on 12/23/2024, here today for follow up. Since last visit Currently 36 weeks Here today for penicillin testing Held antihistamines this week Held morning dose of metoprolol Documentation from Previous Encounters 12/23/2024 López is currently 26 weeks . She reports a history of possible penicillin allergy, noting a past reaction to amoxicillin characterized by emesis and abdominal discomfort. This reaction occurred while she was being treated for a UTI, which required hospitalization due to dehydration. She denies any history of urticaria or rash with amoxicillin. She has a family history of penicillin allergy, with both her mother and sister affected. She also reports a significant reaction to the Gardasil vaccine at age 14, which included severe leg weakness and somnolence lasting three days. She describes herself as having very sensitive skin, reacting to various soaps and shaving creams with bumps on her legs. She currently uses loratadine as needed for allergies. López has a history of tachycardia, with heart rates reaching 200 bpm. She has been on metoprolol 50 mg BID since age 18, which she reports effectively controls her heart rate but causes fatigue. PAST MEDICAL AND SURGICAL HISTORY: PAST MEDICAL HISTORY Diagnosis Date Tachycardia PAST SURGICAL HISTORY Procedure Laterality Date HEMATOMA EVACUATION 2002 chin ALLERGIES: is allergic to gardasil [h papillomavirus vac,qval (pf)]. FAMILY HISTORY: FAMILY HISTORY Problem Relation Age of Onset Blood Disease Mother mtfhr Thyroid Mother Diabetes Father type 2 other (asd) Sister arterial spectrum defect Fibromyalgia Maternal Grandmother Coronary Artery Disease Maternal Grandmother other (htn) Maternal Grandmother other (mtfhr) Maternal Grandmother Stroke Maternal Grandfather Heart disease Paternal Grandmother REVIEW OF SYSTEMS: All systems were reviewed and were negative except as listed in the HPI and above. PHYSICAL EXAM: BP 107/73 (BP Site: Right Arm, BP Position: Sitting, BP Cuff Size: Regular Adult) Pulse 108 Temp 36.8 C (98.2 F) (Oral) Resp 16 SpO2 98% General: The patient is pleasant, well groomed, in no acute distress, breathing comfortably and interactive with the exam. Head: Normocephalic, atraumatic Musculoskeletal: Normal muscle tone and gait. Neurologic: Grossly non-focal Psych: Appropriate affect. Dermatologic: No rash, urticaria or excoriations. PROCEDURE: López has not been sick, has not taken any antihistamines, has had no asthma symptoms recently and has no rashes today. I have discussed the risks, benefits, and alternatives for the drug ingestion challenge being performed today. The benefits of the drug challenge include being able to re-introduce the drug if needed in the future. The risks include the patient developing an allergic (IgE/Anaphylaxis) delayed allergic or non-allergic reaction to the food. Symptoms of an allergic reaction could include hives, swelling, wheezing, shortness of breath, lightheadedness, low blood pressure, vomiting, and diarrhea. Delayed reactions tend to be rashes that are self limited and not life threatening. Rare reactions such as blistering skin rashes or serum sickness like reaction may occur though this is rare and is not the reason this drug challenge is being done- Therefore the risk for the blistering rashes or serum sickness like reaction is the same as the general population. Treatment of these reactions may require medications such as antihistamines, steroids, intravenous fluids or epinephrine, and the reaction may require hospitalization. If the patient tolerates the drug challenge then they may use this drug as clinically indicated after the patient, family and treating physician determine on an individual basis that the benefits outweigh the risks- which is they way all drugs should be thought of. The alternatives involve the patient continuing drug avoidance and using equally efficacious alternatives as clinically indicated. ALLERGENS Negative Control (50% glycerin/50% cocas for prick and HSA for intradermal) P: W = 0 mm F = 0 mm ID:W = 0 mm F = 0 mm PENICILLIN GK 10,000 UNITS/ML [facility]: 3182-1028-09 LOT: [id number] Exp: 10/08/2025 P: W = 0 mm F = 0 mm ID: W = 0 mm F = 0 mm PREPEN -(benzylpenicilloyl polylysine) full strength [facility]: 26262-017-36 LOT: [id number] Exp: 09/10/2025 P: W = 0 mm F = 0 mm ID: W = 0 mm F = 0 mm AMPICILLIN SODIUM 12.5mg/ml [facility]: 4276-6560-81 LOT: [id number] Exp: 01/08/2027 P: W = 0 mm F = 0 mm ID: W = 0 mm F = 0 mm HISTAMINE- positive control (Histamine base 6mg/ml)for Prick and 0.1 mg/ml for intradermal P: W = 3 mm F = 9 mm Hydrocortisone cream applied per patients request and orders. Amoxicillin Oral Challenge Amoxicillin obtained from [employer] 1115 Informed consent for Amoxicillin oral challenge obtained by Capri Brown MD 1230 patient given jesús crackers prior to starting direct oral challenge 1244 Amoxicillin (Licensed Practical Nurse: Restore Water[employer], [facility]: 3871-0581-90 , Lot #: [id number], Expiration: 08/10/2026) 25 mg/0.5 ml oral suspension po given per Capri Brown MD's orders. 1314 Patient without signs of symptoms of allergic reaction. 1318 Amoxicillin (Licensed Practical Nurse: Restore [employer], [facility]: 9030-6330-91 , Lot #: [id number], Expiration: 08/10/2026) 225 mg/4.5 ml oral suspension po given per Capri Brown MD's orders. 1418 Pt. without signs or symptoms of allergic reaction. 1419 Vitals Obtained post challenge. 107/73 BP, 108 HR, 16 RR, 98 SpO2, 36.8 T Pt. seen by Capri Brown MD prior to leaving the office. Assessment/Plan: Adverse effect of drug, subsequent encounter (T50.905A) Allergy to penicillin (Z88.0) The patient had negative skin prick testing and has tolerated an amoxicillin oral challenge today. This rules out IgE mediated hypersensitivity to penicillins thus she is not currently allergic to penicillins. - The patient may take penicillin, semi-synthetic penicillin drugs, and cephalosporins as clinically indicated, in the future with no restrictions. - The patient is still at risk for a non-IgE mediated reaction including SJS/TEN, serum sickness, or adverse effects of penicillin or penicillin-like drugs, as these tests do not predict the potential for these reactions. - ALLERGEN SKIN TEST-PENICILLIN - ALLERGEN SKIN TEST-PENICILLIN - amoxicillin 250 mg oral liquid (AMOXIL) Discussed medication dosage, usage, side effects, and goals of treatment in detail. Follow-up: Return if symptoms worsen or fail to improve. Patient advised to call or return sooner should current symptoms worsen or fail to improve or if new symptoms or problems arise. Capri Brown MD Allergy and Immunology [facility] documented in this encounter [facility] 03-02-2025 Note HNO ID: [id number] Author: CAPRI BROWN MD Service: ? Author Type: Physician Type: Progress Notes Filed: 03/02/2025 20:40 Note Text: Allergy and Immunology All aspects of this note have been reviewed and updated López Bravo is a 24 year old female who was last seen by me on 12/23/2024, here today for follow up. Since last visit Currently 36 weeks Here today for penicillin testing Held antihistamines this week Held morning dose of metoprolol Documentation from Previous Encounters 12/23/2024 López is currently 26 weeks . She reports a history of possible penicillin allergy, noting a past reaction to amoxicillin characterized by emesis and abdominal discomfort. This reaction occurred while she was being treated for a UTI, which required hospitalization due to dehydration. She denies any history of urticaria or rash with amoxicillin. She has a family history of penicillin allergy, with both her mother and sister affected. She also reports a significant reaction to the Gardasil vaccine at age 14, which included severe leg weakness and somnolence lasting three days. She describes herself as having very sensitive skin, reacting to various soaps and shaving creams with bumps on her legs. She currently uses loratadine as needed for allergies. López has a history of tachycardia, with heart rates reaching 200 bpm. She has been on metoprolol 50 mg BID since age 18, which she reports effectively controls her heart rate but causes fatigue. PAST MEDICAL AND SURGICAL HISTORY: PAST MEDICAL HISTORY Diagnosis Date Tachycardia PAST SURGICAL HISTORY Procedure Laterality Date HEMATOMA EVACUATION 2002 chin ALLERGIES: is allergic to gardasil [h papillomavirus vac,qval (pf)]. FAMILY HISTORY: FAMILY HISTORY Problem Relation Age of Onset Blood Disease Mother mtfhr Thyroid Mother Diabetes Father type 2 other (asd) Sister arterial spectrum defect Fibromyalgia Maternal Grandmother Coronary Artery Disease Maternal Grandmother other (htn) Maternal Grandmother other (mtfhr) Maternal Grandmother Stroke Maternal Grandfather Heart disease Paternal Grandmother REVIEW OF SYSTEMS: All systems were reviewed and were negative except as listed in the HPI and above. PHYSICAL EXAM: BP 107/73 (BP Site: Right Arm, BP Position: Sitting, BP Cuff Size: Regular Adult) Pulse 108 Temp 36.8 ?C (98.2 ?F) (Oral) Resp 16 SpO2 98% General: The patient is pleasant, well groomed, in no acute distress, breathing comfortably and interactive with the exam. Head: Normocephalic, atraumatic Musculoskeletal: Normal muscle tone and gait. Neurologic: Grossly non-focal Psych: Appropriate affect. Dermatologic: No rash, urticaria or excoriations. PROCEDURE: López has not been sick, has not taken any antihistamines, has had no asthma symptoms recently and has no rashes today. I have discussed the risks, benefits, and alternatives for the drug ingestion challenge being performed today. The benefits of the drug challenge include being able to re-introduce the drug if needed in the future. The risks include the patient developing an allergic (IgE/Anaphylaxis) delayed allergic or non-allergic reaction to the food. Symptoms of an allergic reaction could include hives, swelling, wheezing, shortness of breath, lightheadedness, low blood pressure, vomiting, and diarrhea. Delayed reactions tend to be rashes that are self limited and not life threatening. Rare reactions such as blistering skin rashes or serum sickness like reaction may occur though this is rare and is not the reason this drug challenge is being done- Therefore the risk for the blistering rashes or serum sickness like reaction is the same as the general population. Treatment of these reactions may require medications such as antihistamines, steroids, intravenous fluids or epinephrine, and the reaction may require hospitalization. If the patient tolerates the drug challenge then they may use this drug as clinically indicated after the patient, family and treating physician determine on an individual basis that the benefits outweigh the risks- which is they way all drugs should be thought of. The alternatives involve the patient continuing drug avoidance and using equally efficacious alternatives as clinically indicated. ALLERGENS Negative Control (50% glycerin/50% cocas for prick and HSA for intradermal) P: W = 0 mm F = 0 mm ID:W = 0 mm F = 0 mm PENICILLIN GK 10,000 UNITS/ML [facility]: 8402-4430-73 LOT: [id number] Exp: 10/08/2025 P: W = 0 mm F = 0 mm ID: W = 0 mm F = 0 mm PREPEN -(benzylpenicilloyl polylysine) full strength ND: 56412-053-66 LOT: [id number] Exp: 09/10/2025 P: W = 0 mm F = 0 mm ID: W = 0 mm F = 0 mm AMPICILLIN SODIUM 12.5mg/ml ND: 0810-6025-12 LOT: [id number] Exp: 01/08/2027 P: W = 0 mm F = 0 mm ID: W = 0 mm F = 0 mm HISTAMINE- positive control (Histamine base 6mg/ml (more content not included)... [facility] 02-28-2025 Telephone encounter Note 3rd risk assessment form submitted 02/28/2025. Lizeth Patel RN [facility] 02-28-2025 Miscellaneous Notes 3rd risk assessment form submitted 02/28/2025. Lizeth Patel RN documented in this encounter [facility] 02-25-2025 Progress note Formatting of t his note might be different from the original. S: López Bravo is a 24 year old female who presents at 03/29/2025, by Last Menstrual Period for a routine visit. Denies headache, visual changes, chest pain, shortness of breath, vaginal bleeding, leakage of fluid, or dysuria. Feeling well, no complaints. Good movement, No contractions O: See flow sheet Gen: No apparent distress Abd: Gravid, nontender Reviewed BG- some elevated but knows what foods contributed to the elevated levels and anis trying to avoid. ASSESSMENT/PLAN: 1. Supervision of high risk in third trimester (HCC) - ICD9: V23.9, ICD10: O09.93 (primary diagnosis) - URINE OB DIP B/O 2. Diet controlled gestational diabetes mellitus (GDM) in third trimester ([facility]) - ICD9: 648.83, ICD10: O24.410 - URINE OB DIP B/O 3. Hypothyroidism, unspecified type - ICD9: 244.9, ICD10: E03.9 - URINE OB DIP B/O 4. Penicillin allergy - ICD9: V14.0, ICD10: Z88.0 Allergy testing to be completed next week - URINE OB DIP B/O 5. 35 weeks gestation of ([facility]) - ICD9: V22.2, ICD10: Z3A.35 - URINE OB DIP B/O Lizeth Tate MD [facility] 02-25-2025 Miscellaneous Notes S: López Bravo is a 24 year old female who presents at 03/29/2025, by Last Menstrual Period for a routine visit. Denies headache, visual changes, chest pain, shortness of breath, vaginal bleeding, leakage of fluid, or dysuria. Feeling well, no complaints. Good movement, No contractions O: See flow sheet Gen: No apparent distress Abd: Gravid, nontender Reviewed BG- some elevated but knows what foods contributed to the elevated levels and anis trying to avoid. ASSESSMENT/PLAN: 1. Supervision of high risk in third trimester ([facility]) - ICD9: V23.9, ICD10: O09.93 (primary diagnosis) - URINE OB DIP B/O 2. Diet controlled gestational diabetes mellitus (GDM) in third trimester ([facility]) - ICD9: 648.83, ICD10: O24.410 - URINE OB DIP B/O 3. Hypothyroidism, unspecified type - ICD9: 244.9, ICD10: E03.9 - URINE OB DIP B/O 4. Penicillin allergy - ICD9: V14.0, ICD10: Z88.0 Allergy testing to be completed next week - URINE OB DIP B/O 5. 35 weeks gestation of ([facility]) - ICD9: V22.2, ICD10: Z3A.35 - URINE OB DIP B/O Lizeth Tate MD documented in this encounter [facility] 02-25-2025 Instructions Nicole Villeda MA - 02/25/2025 2:50 PM EDT SEQUENTIAL SCREENINGS The [facility] offers sequential screenings for women who are interested in screenings for chromosomal abnormalities and certain defects during a . The sequential screen combines ultrasound and blood tests to determine the risk of chromosomal abnormalities, including Down's Syndrome (Trisomy 21) and Trisomy 18, as well as open neural tube defects including spina bifida. Ultrasound examination is performed between 11 weeks and 13 weeks gestational age. Blood tests are drawn after the ultrasound and again later in the between 15 and 21 weeks gestational age. Please let your physician know if you are interested in this testing. It will require an appointment with our environmental science technician. This is not an ultrasound performed by a physician in our office during a routine visit. SIGNS AND SYMPTOMS OF LABOR 1. Contractions every 10 minutes or more often 2. Clear, pink, or brownish fluid (water) leaking from vagina 3. Feeling that baby is pushing down, pressure 4. Low, dull backache 5. Cramps that feel like a period 6. Cramps with or without diarrhea If you notice any of the above symptoms, contact our office at [phone] and ask to speak with a nurse. After hours, you can call doctors registry at [phone] OR call [facility] at [phone] and ask to have the doctor school admissions representative paged. If you consider this an emergency, dial 9-1-0 or go to your nearest emergency department. NEED HELP? Are you dealing with a violent or abusive relationship? Are you a victim of rape or sexual assult? Call [facility] ([place]) 24 hour Crisis Hotline: 935.800.5304 or 925-912-9707. MANUAL Your Guide to a Healthy manual is now on-line. Visit [email or web address] to download your free copy documented in this encounter [facility] 02-21-[address] - 02/21/2025 11:50 AM EDT All beverages calorie free and sugar free, no reg pop or juice; avoid added sugars Keep breakfast to 1-2 carbs: carbs are the starch, fruit and milk group and is defined as 15 grams. Follow the Plate Method at lunch and dinner: Use a 9 plate - 1/2 plate vegetables-non starchy such as green beans, greens, broccoli, cauliflower, etc (1 serving of fruit optional outside of plate) - 1/4 plate lean protein-primarily chicken, turkey fish, lean red 1-2 x per week at most (size of palm) - 1/4 plate whole grain or starchy vegetable such as corn, peas, potatoes, beans (size of fist, 1 cup) ; avoid white and refined breads and grains. Keep proteins lean: chicken, turkey, fish, avoid high fat, high saturated fat foods. Include lean protein in each meal and for late night snack Aim for approx 3 servings dairy daily: milk, yogurt,. Sugar free pudding Include regular exercise, aim for at least 30 min cardio most days; OK to break into smaller segements if needed Work toward normal sleep wake patterns Discuss modifications with family, have own healthier foods available if meals are not appropriate. Call ([phone]). To schedule follow up nutrition visit for ~3 weeks documented in this encounter [facility] 02-21-2025 Note HNO ID: [id number] Author: KALEE MORE RD Service: ? Author Type: Registered Dietitian Type: Progress Notes Filed: 02/21/2025 11:55 Note Text: 9:32 AM The [facility] Nutrition Therapy: Virtual Consult - Initial Assessment I have communicated my name and active licensure. The patient?s identity and physical location were verified at the time of this visit. Either the patient or their legal resources representative has been informed of the risks and benefits of -- and alternatives to -- treatment through a remote evaluation and consents to proceed with the evaluation remotely. Nutrition Diagnosis: Altered nutrition-related lab values, related to, and endocrine dysfunction, as evidenced by abnormal GTT, elevated blood sugars. RECOMMENDED MALNUTRITION DIAGNOSIS: NO MALNUTRITION IDENTIFIED NUTRITION CARE PLAN Nutrition Intervention 02/21/2025: modify type and amount of food or beverage All beverages calorie free and sugar free, no reg pop or juice; avoid added sugars Keep breakfast to 1-2 carbs: carbs are the starch, fruit and milk group and is defined as 15 grams. Follow the Plate Method at lunch and dinner: Use a 9 plate - 1/2 plate vegetables-non starchy such as green beans, greens, broccoli, cauliflower, etc (1 serving of fruit optional outside of plate) - 1/4 plate lean protein-primarily chicken, turkey fish, lean red 1-2 x per week at most (size of palm) - 1/4 plate whole grain or starchy vegetable such as corn, peas, potatoes, beans (size of fist, 1 cup) ; avoid white and refined breads and grains. Keep proteins lean: chicken, turkey, fish, avoid high fat, high saturated fat foods. Include lean protein in each meal and for late night snack Aim for approx 3 servings dairy daily: milk, yogurt,. Sugar free pudding Include regular exercise, aim for at least 30 min cardio most days; OK to break into smaller segements if needed Work toward normal sleep wake patterns Discuss modifications with family, have own healthier foods available if meals are not appropriate. Call ([phone]). To schedule follow up nutrition visit for ~3 weeks Nutrition Monitoring AND Evaluation: blood sugars in target range Need for Follow up: 2-3 weeks Patient presents for initial MNT as relates to GDM at 35 Weeks. Prepregnancy weight 150's. States before lost 50 lbs unintentionally, reported had not energy and was sleeping a lot, feels related to a heart medication. Experiencing GERD Disrupted sleep/wake schedule, Wake 1-2 p.m. Typically eats two meals with snacking during the day and late. Diet tends towards high carbohydrate and simple sugars; reg soda daily. Has limited produce, whole grains; low fiber intake. Includes regular exercise with walking and gardening. Checks blood sugars usually twice daily. Patient's symptoms are: elevated GTT Diet History: Did not yet check Wake 1-2 PM 86-94 Breakfast - left overs; sandwich; salad; eggs; chicken sandwich; pasta; burger; Butler flakes/1% milk and fruit; pancakes water Snack - granola bars; peanut butter cracker or cheese pkg; Dinner - 5-8 - casseroles, mashed/meat/veg; pasta; pizza; burgers; broccoli chicken and rice; shepards pie; iItal sausage, chicken finger with FF and cheese sauce post meal blood sugars 152; may have dessert : peach cobbler, fransisca food cake, ice cream; banana split; water Yesterday second dinner of pasta; post meal blood sugar 103 Snack - 1 a.m. granola bars and crackers or pnt butter toast; salad Beverages - water, flavored water, milk occ pop 6 oz daily; Alcohol- no Vitamins/Supplements - Less pop Occ cran grape juice with gingerale or sprite and lemon juice Activity: Activities of Daily Living: varies Additional Activity: Moderately active (Moderate intensity exercise: Planned physical activity 3-5 days/week) Walking most days or gardening Anthropometrics: Height: Last Ht 02/21/25 : 157 cm (5' 1.81) Current weight: Last Wt 02/21/25 : 79.8 kg (176 lb) Body mass index is 32.39 kg/m?. Resting Metabolic Rate: 1509 Malnutrition Screening Significant unintentional weight loss? No Eating less than 75% of usual intake for more than 2 weeks? No Potential Signs of Inflammation: no identifiable sources Food Insecurity: No Food Insecurity (02/21/2025) Hunger Vital Sign Worried About Running Out of Food in the Last Year: Never true Ran Out of Food in the Last Year: Never true Supplemented with [facility] Education Materials Provided: Healthy You - and Healthy Lunch/Dinner Plate READINESS TO LEARN Cognitive ability: Alert and oriented Motivation to learn: Interested Family support: Unable to assess - Family not present Instruction provided to: Patient Patient learns best by: Individual Instruction Factors affecting learning: None Physical limitations affecting learning: None Referred by: Yi GUARDADO Billing Type: Initial Assess 3 units (more content not included)... [facility] 02-21-2025 History of Presen t illness Narrative 9:32 AM The [facility] Nutrition Therapy: Virtual Consult - Initial Assessment I have communicated my name and active licensure. The patient s identity and physical location were verified at the time of this visit. Either the patient or their legal resources representative has been informed of the risks and benefits of -- and alternatives to -- treatment through a remote evaluation and consents to proceed with the evaluation remotely. Nutrition Diagnosis: Altered nutrition-related lab values, related to, and endocrine dysfunction, as evidenced by abnormal GTT, elevated blood sugars. RECOMMENDED MALNUTRITION DIAGNOSIS: NO MALNUTRITION IDENTIFIED NUTRITION CARE PLAN Nutrition Intervention 02/21/2025: modify type and amount of food or beverage All beverages calorie free and sugar free, no reg pop or juice; avoid added sugars Keep breakfast to 1-2 carbs: carbs are the starch, fruit and milk group and is defined as 15 grams. Follow the Plate Method at lunch and dinner: Use a 9 plate - 1/2 plate vegetables-non starchy such as green beans, greens, broccoli, cauliflower, etc (1 serving of fruit optional outside of plate) - 1/4 plate lean protein-primarily chicken, turkey fish, lean red 1-2 x per week at most (size of palm) - 1/4 plate whole grain or starchy vegetable such as corn, peas, potatoes, beans (size of fist, 1 cup) ; avoid white and refined breads and grains. Keep proteins lean: chicken, turkey, fish, avoid high fat, high saturated fat foods. Include lean protein in each meal and for late night snack Aim for approx 3 servings dairy daily: milk, yogurt,. Sugar free pudding Include regular exercise, aim for at least 30 min cardio most days; OK to break into smaller segements if needed Work toward normal sleep wake patterns Discuss modifications with family, have own healthier foods available if meals are not appropriate. Call ([phone]). To schedule follow up nutrition visit for ~3 weeks Nutrition Monitoring & Evaluation: blood sugars in target range Need for Follow up: 2-3 weeks Patient presents for initial MNT as relates to GDM at 35 Weeks. Prepregnancy weight 150's. States before lost 50 lbs unintentionally, reported had not energy and was sleeping a lot, feels related to a heart medication. Experiencing GERD Disrupted sleep/wake schedule, Wake 1-2 p.m. Typically eats two meals with snacking during the day and late. Diet tends towards high carbohydrate and simple sugars; reg soda daily. Has limited produce, whole grains; low fiber intake. Includes regular exercise with walking and gardening. Checks blood sugars usually twice daily. Patient's symptoms are: elevated GTT Diet History: Did not yet check Wake 1-2 PM 86-94 Breakfast - left overs; sandwich; salad; eggs; chicken sandwich; pasta; burger; Butler flakes/1% milk and fruit; pancakes water Snack - granola bars; peanut butter cracker or cheese pkg; Dinner - 5-8 - casseroles, mashed/meat/veg; pasta; pizza; burgers; broccoli chicken and rice; shepards pie; iItal sausage, chicken finger with FF and cheese sauce post meal blood sugars 152; may have dessert : peach cobbler, fransisca food cake, ice cream; banana split; water Yesterday second dinner of pasta; post meal blood sugar 103 Snack - 1 a.m. granola bars and crackers or pnt butter toast; salad Beverages - water, flavored water, milk occ pop 6 oz daily; Alcohol- no Vitamins/Supplements - Less pop Occ cran grape juice with gingerale or sprite and lemon juice Activity: Activities of Daily Living: varies Additional Activity: Moderately active (Moderate intensity exercise: Planned physical activity 3-5 days/week) Walking most days or gardening Anthropometrics: Height: Last Ht 02/21/25 : 157 cm (5' 1.81) Current weight: Last Wt 02/21/25 : 79.8 kg (176 lb) Body mass index is 32.39 kg/m . Resting Metabolic Rate: 1509 Malnutrition Screening Significant unintentional weight loss? No Eating less than 75% of usual intake for more than 2 weeks? No Potential Signs of Inflammation: no identifiable sources Food Insecurity: No Food Insecurity (02/21/2025) Hunger Vital Sign Worried About Running Out of Food in the Last Year: Never true Ran Out of Food in the Last Year: Never true Supplemented with [facility] Education Materials Provided: Healthy You - and Healthy Lunch/Dinner Plate READINESS TO LEARN Cognitive ability: Alert and oriented Motivation to learn: Interested Family support: Unable to assess - Family not present Instruction provided to: Patient Patient learns best by: Individual Instruction Factors affecting learning: None Physical limitations affecting learning: None Referred by: Yi GUARDADO Billing Type: Initial Assess 3 units Total Time (mins): 48 SIGNATURE: Kalee More RD PATIENT NAME: López Brvao DATE: February 21, 2025 TIME: 9:36 AM documented in this encounter [facility] 02-03-2025 Note Indication Evaluation of growth Limited care, Transfer, Gestational diabetes - diet controlled Impression - Single, live, intrauterine . - presentation is cephalic. - The biometry is consistent with the assigned gestational dating. - The EFW is 1820 g, at the 27%. AC is at the 52%. - Amniotic fluid volume is normal amount with an MVP of 4.9 cm and DONAVON of 14.2 cm. - The placenta is posterior, fundal. - No malformations visualized on a limited survey as detailed below. Recommendations - growth scan every 4 weeks - Additional follow up as clinically indicated. Maternal Assessment Height 157 cm Height (ft) 5 ft Height (in) 2 in Physical Exam Initial weight (lb) 162 lb Initial BMI 29.63 kg/m Maternal assessment other: 1 Para 0 REMOTE READ Method Transabdominal ultrasound examination [place] . Number of fetuses: 1 Dating LMP on: 06/22/2024 GA by LMP 32 w + 1 d HOOD by LMP: 03/29/2025 GA by prior assessment 32 w + 1 d HOOD by prior assessment: 03/29/2025 Ultrasound examination on: 02/02/2025 GA by U/S based upon: AC, BPD, Femur, HC GA by U/S 31 w + 3 d HOOD by U/S: 04/03/2025 Assigned: based on stated HOOD, selected on 12/20/2024 Assigned GA 32 w + 1 d Assigned HOOD: 03/29/2025 General Evaluation Cardiac activity present. FHR 134 bpm. movements: present. Presentation: cephalic Placenta: Placental site: posterior, fundal Umbilical cord: Cord vessels: 3 vessel cord Amniotic fluid: Amount of AF: normal amount. MVP 4.9 cm. DONAVON 14.2 cm. Q1 1.3 cm, Q2 4.1 cm, Q3 3.9 cm, Q4 4.9 cm Growth Overview Exam date GA BPD (mm) HC (mm) AC (mm) FL (mm) HL (mm) EFW (g) 12/20/2024 25w 6d 64.4 46% 231.1 26% 217.6 53% 46.4 48% 40.6 10% 852 36% 02/02/2025 32w 1d 78.6 24% 291.5 32% 282.2 52% 58.5 18% 1820 27% Biometry Standard BPD 78.6 mm 31w 4d 24% Hadlock OFD 102.6 mm 30w 1d 23% Nicolaides HC 291.5 mm 31w 2d 32% Gini AC 282.2 mm 32w 2d 52% Hadlock Femur 58.5 mm 30w 4d 18% Gini EFW 1,820 g 31w 2d 27% Hadlock EFW (lb) 4 lb EFW (oz) 0 oz EFW by: Hadlock (HC-AC-FL) Extended Hand Ii Tube Bender 3.4 mm Extremities / Bony Struc FL / HC 0.20 Other Structures FHR 134 bpm Anatomy Lateral ventricles: normal Cavum septi pellucidi: normal Cerebellum: normal Cisterna magna: normal 4-chamber view: normal RVOT view: normal LVOT view: normal 3-vessel view: normal Heart / Thorax Situs: situs solitus (normal) Diaphragm: normal Stomach: normal Kidneys: normal Bladder: normal sex: female Wants to know sex: yes Performed By: Pina Ivy RDMS, RVT Read By: Devorah Washington M.D. [facility] 02-02-2025 Progress note Formatting of t his note might be different from the original. S: López Bravo is a 24 year old female who presents at 03/29/2025, by Last Menstrual Period for a routine visit. Denies headache, visual changes, chest pain, shortness of breath, vaginal bleeding, leakage of fluid, or dysuria. Feeling well, no complaints. Good movement, No contractions O: See flow sheet Gen: No apparent distress Abd: Gravid, nontender EFW 27% DONAVON 14 BG good per pt. She does nor write them down. Encouraged to do so. ASSESSMENT/PLAN: 1. Supervision of high risk in third trimester (HCC) - ICD9: V23.9, ICD10: O09.93 (primary diagnosis) 2. Diet controlled gestational diabetes mellitus (GDM) in third trimester ([facility]) - ICD9: 648.83, ICD10: O24.410 Lizeth Tate MD [facility] 02-02-2025 Miscellaneous Notes S: López Bravo is a 24 year old female who presents at 03/29/2025, by Last Menstrual Period for a routine visit. Denies headache, visual changes, chest pain, shortness of breath, vaginal bleeding, leakage of fluid, or dysuria. Feeling well, no complaints. Good movement, No contractions O: See flow sheet Gen: No apparent distress Abd: Gravid, nontender EFW 27% DONAVON 14 BG good per pt. She does nor write them down. Encouraged to do so. ASSESSMENT/PLAN: 1. Supervision of high risk in third trimester (HCC) - ICD9: V23.9, ICD10: O09.93 (primary diagnosis) 2. Diet controlled gestational diabetes mellitus (GDM) in third trimester ([facility]) - ICD9: 648.83, ICD10: O24.410 Lizeth Tate MD documented in this encounter [facility] 02-02-2025 Instructions Isabel Guzmán MA - 02/02/2025 3:03 PM EDT SEQUENTIAL SCREENINGS The [facility] offers sequential screenings for women who are interested in screenings for chromosomal abnormalities and certain defects during a . The sequential screen combines ultrasound and blood tests to determine the risk of chromosomal abnormalities, including Down's Syndrome (Trisomy 21) and Trisomy 18, as well as open neural tube defects including spina bifida. Ultrasound examination is performed between 11 weeks and 13 weeks gestational age. Blood tests are drawn after the ultrasound and again later in the between 15 and 21 weeks gestational age. Please let your physician know if you are interested in this testing. It will require an appointment with our environmental science technician. This is not an ultrasound performed by a physician in our office during a routine visit. SIGNS AND SYMPTOMS OF LABOR 1. Contractions every 10 minutes or more often 2. Clear, pink, or brownish fluid (water) leaking from vagina 3. Feeling that baby is pushing down, pressure 4. Low, dull backache 5. Cramps that feel like a period 6. Cramps with or without diarrhea If you notice any of the above symptoms, contact our office at [phone] and ask to speak with a nurse. After hours, you can call doctors registry at [phone] OR call [facility] at [phone] and ask to have the doctor school admissions representative paged. If you consider this an emergency, dial [phone] or go to your nearest emergency department. NEED HELP? Are you dealing with a violent or abusive relationship? Are you a victim of rape or sexual assult? Call [facility] ([place]) 24 hour Crisis Hotline: 846.889.9891 or 308-569-5951. MANUAL Your Guide to a Healthy manual is now on-line. Visit [email or web address] to download your free copy documented in this encounter [facility] 01-20-2025 Progress note Formatting of t his note might be different from the original. EH - S: López is a 24 year old female who presents at 30w2d for a routine visit. Feeling movement. Denies headache, visual changes, chest pain, shortness of breath, vaginal bleeding, leakage of fluid, or dysuria. Feeling well, no complaints. O: See flow sheet Gen: No apparent distress Abd: Gravid, nontender, S=D ASSESSMENT/PLAN: 1. Supervision of high risk in third trimester (HCC) - ICD9: V23.9, ICD10: O09.93 (primary diagnosis) - Continue LDA and PNV 2. 30 weeks gestation of (HCC) - ICD9: V22.2, ICD10: Z3A.30 Hypothyroidism, unspecified type - ICD9: 244.9, ICD10: E03.9 - Under care of endo Tachycardia - ICD9: 785.0, ICD10: R00.0 - Continues Metoprolol and following up with cardiology Penicillin allergy - ICD9: V14.0, ICD10: Z88.0 - Allergy clinic 03/02 UTI (urinary tract infection) in , antepartum ([facility]) - ICD9: 646.63, 599.0, ICD10: O23.40 - Third trimester rescreen today Diet controlled gestational diabetes mellitus (GDM) in third trimester ([facility]) - ICD9: 648.83, ICD10: O24.410 - Diagnosed yesterday - Supplies ordered. - Nutrition consult and diabetes consult placed. - Growth ultrasounds every 4 weeks at diagnosis - Patient to bring glucose logs to next appointment. - Reports staying up until 4 am and sleeping late so not sure how to complete fasting - Reviewed good sleeping habits to optimize blood glucose control and should have a fasting period Abnormal ultrasound - ICD9: 796.5, ICD10: O28.3 - See ultrasound report from [place]: cephalic index and femur length/head circumference ratios outside of expected ranges PTL precautions and kick counts reviewed. RTO in 2 weeks or sooner as needed. Tia Jacobs APRN.[employer]ES AGENT PROTECTIVE SERVICE [facility] 01-20-2025 Miscellaneous Notes EH - S: López is a 24 year old female who presents at 30w2d for a routine visit. Feeling movement. Denies headache, visual changes, chest pain, shortness of breath, vaginal bleeding, leakage of fluid, or dysuria. Feeling well, no complaints. O: See flow sheet Gen: No apparent distress Abd: Gravid, nontender, S=D ASSESSMENT/PLAN: 1. Supervision of high risk in third trimester ([facility]) - ICD9: V23.9, ICD10: O09.93 (primary diagnosis) - Continue LDA and PNV 2. 30 weeks gestation of ([facility]) - ICD9: V22.2, ICD10: Z3A.30 Hypothyroidism, unspecified type - ICD9: 244.9, ICD10: E03.9 - Under care of endo Tachycardia - ICD9: 785.0, ICD10: R00.0 - Continues Metoprolol and following up with cardiology Penicillin allergy - ICD9: V14.0, ICD10: Z88.0 - Allergy clinic 03/02 UTI (urinary tract infection) in , antepartum (HCC) - ICD9: 646.63, 599.0, ICD10: O23.40 - Third trimester rescreen today Diet controlled gestational diabetes mellitus (GDM) in third trimester ([facility]) - ICD9: 648.83, ICD10: O24.410 - Diagnosed yesterday - Supplies ordered. - Nutrition consult and diabetes consult placed. - Growth ultrasounds every 4 weeks at diagnosis - Patient to bring glucose logs to next appointment. - Reports staying up until 4 am and sleeping late so not sure how to complete fasting - Reviewed good sleeping habits to optimize blood glucose control and should have a fasting period Abnormal ultrasound - ICD9: 796.5, ICD10: O28.3 - See ultrasound report from [place]: cephalic index and femur length/head circumference ratios outside of expected ranges PTL precautions and kick counts reviewed. RTO in 2 weeks or sooner as needed. Tia Jacobs APRN.[employer]ALES AGENT PROTECTIVE SERVICE documented in this encounter [facility] 01-20-2025 Instructions Kayla Esteban MA - 01/20/2025 3:21 PM EDT SEQUENTIAL SCREENINGS The [facility] offers sequential screenings for women who are interested in screenings for chromosomal abnormalities and certain defects during a . The sequential screen combines ultrasound and blood tests to determine the risk of chromosomal abnormalities, including Down's Syndrome (Trisomy 21) and Trisomy 18, as well as open neural tube defects including spina bifida. Ultrasound examination is performed between 11 weeks and 13 weeks gestational age. Blood tests are drawn after the ultrasound and again later in the between 15 and 21 weeks gestational age. Please let your physician know if you are interested in this testing. It will require an appointment with our environmental science technician. This is not an ultrasound performed by a physician in our office during a routine visit. SIGNS AND SYMPTOMS OF LABOR 1. Contractions every 10 minutes or more often 2. Clear, pink, or brownish fluid (water) leaking from vagina 3. Feeling that baby is pushing down, pressure 4. Low, dull backache 5. Cramps that feel like a period 6. Cramps with or without diarrhea If you notice any of the above symptoms, contact our office at [phone] and ask to speak with a nurse. After hours, you can call doctors registry at [phone] OR call [facility] at [phone] and ask to have the doctor school admissions representative paged. If you consider this an emergency, dial 5--2 or go to your nearest emergency department. NEED HELP? Are you dealing with a violent or abusive relationship? Are you a victim of rape or sexual assult? Call [facility] ([place]) 24 hour Crisis Hotline: 839.746.9028 or 504-230-8799. MANUAL Your Guide to a Healthy manual is now on-line. Visit [email or web address] to download your free copy SEQUENTIAL SCREENINGS The [facility] offers sequential screenings for women who are interested in screenings for chromosomal abnormalities and certain defects during a . The sequential screen combines ultrasound and blood tests to determine the risk of chromosomal abnormalities, including Down's Syndrome (Trisomy 21) and Trisomy 18, as well as open neural tube defects including spina bifida. Ultrasound examination is performed between 11 weeks and 13 weeks gestational age. Blood tests are drawn after the ultrasound and again later in the between 15 and 21 weeks gestational age. Please let your physician know if you are interested in this testing. It will require an appointment with our environmental science technician. This is not an ultrasound performed by a physician in our office during a routine visit. SIGNS AND SYMPTOMS OF LABOR 1. Contractions every 10 minutes or more often 2. Clear, pink, or brownish fluid (water) leaking from vagina 3. Feeling that baby is pushing down, pressure 4. Low, dull backache 5. Cramps that feel like a period 6. Cramps with or without diarrhea If you notice any of the above symptoms, contact our office at [phone] and ask to speak with a nurse. After hours, you can call doctors registry at [phone] OR call [facility] at [phone] and ask to have the doctor school admissions representative paged. If you consider this an emergency, dial or go to your nearest emergency department. NEED HELP? Are you dealing with a violent or abusive relationship? Are you a victim of rape or sexual assult? Call [facility] ([place]) 24 hour Crisis Hotline: 748.676.6858 or 128-984-9840. MANUAL Your Guide to a Healthy manual is now on-line. Visit [email or web address] [email or web address] to download your free copy documented in this encounter [facility] 01-19-2025 Note HNO ID: [id number] Author: EMMA PADGETT MD Service: ? Author Type: Physician Type: Progress Notes Filed: 01/19/2025 08:29 Note Text: [facility] Initial Clinic Visit Note Virtual Visit (Audio/Visual)I have discussed the nature of this visit with the patient which will occur via [facility] (Phone, Virtual Visit) and she agrees to proceed with this interaction. I have communicated my name and active licensure. The patient's identity and physical location were verified at the time of this visit. Either the patient or their legal resources representative has been informed of the risks and benefits of -- and alternatives to -- treatment through a remote evaluation and consents to proceed with the evaluation remotely. Recording using ambient [employer]It software for draft documentation of the visit was discussed with the patient/authorized resources representative; all questions welcomed and answered. Patient/authorized resources representative agreed to proceed CONSULTING PROVIDER: Lidia Raza APRN. EVANS My final recommendations will be communicated back to the requesting provider by way of shared Medical record or a letter via [place] mail Subjective: López Bravo is a 24 year old female here for abnormal thyroid labs in 08/2024 by her PCP She is currently at 30 weeks of gestation, and she was at 12 weeks when she had the labs in 08/2024. This is her first . Denied any significant morning sickness at that time Repeat labs in 10/2024 were normal She reports she has had pain on left side of the upper neck, pointing at left submandibular region close to ear, gland swelling, had pain for about 1.5 years while she was in [place]. TFTs checked at that time were normal reportedly She she moved here, her thyroid labs were checked in 08/2024 as mentioned TSH 08/31/24: 0.075 Free T4 1.67 Has a family history of thyroid disease in mother and is worried Her mother was by her side during the conversation and keeps asking patient to let me know that she has thyroid problems Currently has no concerning symptoms When I said I will communicate with Lidia Raza CNM who is the one referred her to endocrinology, she keeps saying Lidia Coyne did thyroid labs Reports she was recently diagnosed with gestational diabetes and is worried about her sugars. Currently diet controlled REVIEW OF SYSTEMS: GENERAL:No weight loss, malaise or fevers HEENT:Negative for frequent or significant headaches, No changes in hearing or vision, no nose bleeds or other nasal problems NECK:Negative for lumps, goiter, pain and significant neck swelling RESPIRATORY: Negative for cough, hemoptysis, wheezing or shortness of breath CARDIOVASCULAR: Negative for chest pain, leg swelling or palpitations GASTROINTESTINAL: No nausea, vomiting, or persistent diarrhea GENITOURINARY: no dysuria, Polyuria, no changes in urinary frequency MUSCULOSKELETAL:no muscle aches, arthralgia NEUROLOGIC: no numbness, tingling, no Paresthesias, no headaches SKIN:Negative for lesions, rash, and itching PSYCHIATRIC: Negative for sleep disturbance, mood disorder and recent psychosocial stressors. HEMATOLOGIC/LYMPHATIC/IMMUNOLOGI C:Negative for prolonged bleeding, bruising easily ENDOCRINE: Negative for cold or heat intolerance or goiter ALLERGIES: ALLERGIES Allergen Reactions Amoxil [Amoxicillin] GI Upset Gardasil [H Papillo* Other: See Comments Made her legs wobbly and tired for 3 days MEDICATIONS: Current Outpatient Medications on File Prior to Visit Medication Sig Blood-Glucose Meter Use as directed to check glucose levels up to seven times daily. blood sugar diagnostic test strip Use as directed to check glucose levels up to seven times daily. Lancets Use as directed to check glucose levels up to seven times daily. alcohol swabs (ALCOHOL PREP PADS) Use as directed to check glucose levels up to seven times daily. pantoprazole DR (PROTONIX) 20 mg tablet Take 1 tablet by mouth once daily. metoprolol succinate ER (TOPROL XL) 50 mg 24 hr tablet Take 1 tablet by mouth two times a day. aspirin, enteric coated (ECOTRIN LOW STRENGTH) 81 mg EC tablet Take 1 tablet by mouth once daily. VITAMIN 27 mg iron- 0.8 mg tablet Take 1 tablet by mouth every afternoon. No current facility-administered medications on file prior to visit. PAST MEDICAL HISTORY: PAST MEDICAL HISTORY Diagnosis Date Tachycardia PAST SURGICAL HISTORY: PAST SURGICAL HISTORY Procedure Laterality Date HEMATOMA EVACUATION 2002 chin FAMILY HISTORY: FAMILY HISTORY Problem Relation Age of Onset Blood Disease Mother mtfhr Thyroid Mother Diabetes Father type 2 other (asd) Sister arterial spectrum defect Fibromyalgia Maternal Grandmother Coronary Artery Disease Maternal Grandmother other (htn) Maternal Grandmother other (mtfhr) Maternal Grandmother Stroke Maternal Grandfather Hea (more content not included)... [facility] 01-19-2025 History of Presen t illness Narrative [facility] Initial Clinic Visit Note Virtual Visit (Audio/Visual)I have discussed the nature of this visit with the patient which will occur via [facility] (Phone, Virtual Visit) and she agrees to proceed with this interaction. I have communicated my name and active licensure. The patient's identity and physical location were verified at the time of this visit. Either the patient or their legal resources representative has been informed of the risks and benefits of -- and alternatives to -- treatment through a remote evaluation and consents to proceed with the evaluation remotely. Recording using [employer] software for draft documentation of the visit was discussed with the patient/authorized resources representative; all questions welcomed and answered. Patient/authorized resources representative agreed to proceed CONSULTING PROVIDER: Lidia Raza APRN. EVANS My final recommendations will be communicated back to the requesting provider by way of shared Medical record or a letter via [place] mail Subjective: López Bravo is a 24 year old female here for abnormal thyroid labs in 08/2024 by her PCP She is currently at 30 weeks of gestation, and she was at 12 weeks when she had the labs in 08/2024. This is her first . Denied any significant morning sickness at that time Repeat labs in 10/2024 were normal She reports she has had pain on left side of the upper neck, pointing at left submandibular region close to ear, gland swelling, had pain for about 1.5 years while she was in [place]. TFTs checked at that time were normal reportedly She she moved here, her thyroid labs were checked in 08/2024 as mentioned TSH 08/31/24: 0.075 Free T4 1.67 Has a family history of thyroid disease in mother and is worried Her mother was by her side during the conversation and keeps asking patient to let me know that she has thyroid problems Currently has no concerning symptoms When I said I will communicate with Lidia Raza CNM who is the one referred her to endocrinology, she keeps saying Lidia Coyne did thyroid labs Reports she was recently diagnosed with gestational diabetes and is worried about her sugars. Currently diet controlled REVIEW OF SYSTEMS: GENERAL:No weight loss, malaise or fevers HEENT:Negative for frequent or significant headaches, No changes in hearing or vision, no nose bleeds or other nasal problems NECK:Negative for lumps, goiter, pain and significant neck swelling RESPIRATORY: Negative for cough, hemoptysis, wheezing or shortness of breath CARDIOVASCULAR: Negative for chest pain, leg swelling or palpitations GASTROINTESTINAL: No nausea, vomiting, or persistent diarrhea GENITOURINARY: no dysuria, Polyuria, no changes in urinary frequency MUSCULOSKELETAL:no muscle aches, arthralgia NEUROLOGIC: no numbness, tingling, no Paresthesias, no headaches SKIN:Negative for lesions, rash, and itching PSYCHIATRIC: Negative for sleep disturbance, mood disorder and recent psychosocial stressors. HEMATOLOGIC/LYMPHATIC/IMMUNOLOGI C:Negative for prolonged bleeding, bruising easily ENDOCRINE: Negative for cold or heat intolerance or goiter ALLERGIES: ALLERGIES Allergen Reactions Amoxil [Amoxicillin] GI Upset Gardasil [H Papillo* Other: See Comments Made her legs wobbly and tired for 3 days MEDICATIONS: Current Outpatient Medications on File Prior to Visit Medication Sig Blood-Glucose Meter Use as directed to check glucose levels up to seven times daily. blood sugar diagnostic test strip Use as directed to check glucose levels up to seven times daily. Lancets Use as directed to check glucose levels up to seven times daily. alcohol swabs (ALCOHOL PREP PADS) Use as directed to check glucose levels up to seven times daily. pantoprazole DR (PROTONIX) 20 mg tablet Take 1 tablet by mouth once daily. metoprolol succinate ER (TOPROL XL) 50 mg 24 hr tablet Take 1 tablet by mouth two times a day. aspirin, enteric coated (ECOTRIN LOW STRENGTH) 81 mg EC tablet Take 1 tablet by mouth once daily. VITAMIN 27 mg iron- 0.8 mg tablet Take 1 tablet by mouth every afternoon. No current facility-administered medications on file prior to visit. PAST MEDICAL HISTORY: PAST MEDICAL HISTORY Diagnosis Date Tachycardia PAST SURGICAL HISTORY: PAST SURGICAL HISTORY Procedure Laterality Date HEMATOMA EVACUATION 2002 chin FAMILY HISTORY: FAMILY HISTORY Problem Relation Age of Onset Blood Disease Mother mtfhr Thyroid Mother Diabetes Father type 2 other (asd) Sister arterial spectrum defect Fibromyalgia Maternal Grandmother Coronary Artery Disease Maternal Grandmother other (htn) Maternal Grandmother other (mtfhr) Maternal Grandmother Stroke Maternal Grandfather Heart disease Paternal Grandmother SOCIAL HISTORY: Social History Tobacco Use Smoking status: Never Smokeless tobacco: Never Substance Use Topics Alcohol use: Never Drug use: Never PHYSICAL EXAM: LMP 06/22/2024 (Exact Date) deferred LAB: TSH Date Value Ref Range Status 10/14/2024 1.740 0.270 - 4.200 mIU/L Final Comment: If the patient is , TSH reference range varies by gestational period: First Trimester (weeks 9-12): 0.180-2.990 mIU/L Second Trimester: 0.110-3.980 mIU/L Third Trimester: 0.480-4.710 mIU/L Darrick Ramires et al. A Practical Approach for the Verifications and Determination of Site- and Trimester-Specific Reference Intervals for Thyroid Function tests in . Thyroid, 2019:29:3:412-420. William Campos et al. 2017 Guidelines of the [employer] Thy[employer] for the Diagnosis and Management of Thyroid Disease during and the . Thyroid, 2017:27:3:315-389. Free T4 Date Value Ref Range Status 10/14/2024 1.0 0.9 - 1.7 ng/dL Final Latest Reference Range & Units 10/14/24 13:29 Free T4 0.9 - 1.7 ng/dL 1.0 TSH 0.270 - 4.200 mIU/L 1.740 THYROID PEROXIDASE ANTIBODY <5.6 IU/mL <3.0 ASSESSMENT/PLAN: Abnormal thyroid labs: - labs done by PCP in 08/2024 show appropriate response to during first 12 weeks. - repeat labs in 10/2024 with in normal - TPO abs were checked by OB and are normal - reassurance given that the thyroid is working normally. And the pain she mentioned is less likely thyroid related as the location is not thyroid bed and prolonged pain for more than one year is not seen with thyroiditis either - I reviewed she can have her thyroid labs few weeks post delivery if she or her PCP are worried about thyroid dysfunction due to family hx, and we can manage if any such abnormality noted, but at this time, it has been normal and no treatment necessary. She understands after few attempts Regarding GDM, I also reviewed that this is related to / hormone changes and that her sugars normalize post delivery, but this is risk of developing T2DM in future Medical Decision Making: Problems: Minimal: Self-limited or minor problem Moderate: New problem with uncertain prognosis Data: Unique test result(s) reviewed: 3+ Independent interpretation of test from other physician/QHCP Medical Decision Making Level: 4 - Moderate Emma Padgett MD Endocrinology Associate Staff [facility]ocrinology [facility] Metabolism [place] [phone] documented in this encounter [facility] 01-18-2025 Telephone encounter Note Appt note made for 01/20/25 if patient does not view [employer] message. Needs to schedule appointments. Lizeth Gleason RN [facility] 01-18-2025 Miscellaneous Notes Appt note made for 01/20/25 if patient does not view [employer] message. Needs to schedule appointments. Lizeth Gleason RN Orders signed. Please assist with scheduling growth US. Carolyn Richmond APRN.CNM Received 3 hour glucose results from [place]. Orders pending for consults (for diabetes education and nuclear licensing engineer) and testing supplies. Patient sees Endo for hypothyroidism. Mychart message sent to patient. Lizeth Gleason RN Scan on 01/18/2025 9:02 AM by ProviderNiranjan PA-C: 3 hour glucose documented in this encounter [facility] 01-18-2025 Telephone encounter Note Orders signed. Please assist with scheduling growth US. Carolyn Richmond APRN.CNM [facility] 01-18-2025 Telephone encounter Note Received 3 hour glucose results from [place]. Orders pending for consults (for diabetes education and nuclear licensing engineer) and testing supplies. Patient sees Endo for hypothyroidism. Vivevehart message sent to patient. Lizeth Gleason RN Scan on 01/18/2025 9:02 AM by ProviderNiranjan PA-C: 3 hour glucose [facility] 01-04-2025 Progress note Formatting of t his note might be different from the original. S: López Bravo is a 24 year old female who presents at 03/29/2025, by Last Menstrual Period for a routine visit. Denies headache, visual changes, chest pain, shortness of breath, vaginal bleeding, leakage of fluid, or dysuria. Feeling well, no complaints. Good movement, No contractions Heartburn still bothersome but better O: See flow sheet Gen: No apparent distress Abd: Gravid, nontender Declined TDAP Declined LARC GCT today ASSESSMENT/PLAN: 1. Supervision of high risk in third trimester (HCC) - ICD9: V23.9, ICD10: O09.93 (primary diagnosis) 2. 28 weeks gestation of (HCC) - ICD9: V22.2, ICD10: Z3A.28 PTL precautions Lizeth Tate MD [facility] 01-04-2025 Miscellaneous Notes S: López Bravo is a 24 year old female who presents at 03/29/2025, by Last Menstrual Period for a routine visit. Denies headache, visual changes, chest pain, shortness of breath, vaginal bleeding, leakage of fluid, or dysuria. Feeling well, no complaints. Good movement, No contractions Heartburn still bothersome but better O: See flow sheet Gen: No apparent distress Abd: Gravid, nontender Declined TDAP Declined LARC GCT today ASSESSMENT/PLAN: 1. Supervision of high risk in third trimester ([facility]) - ICD9: V23.9, ICD10: O09.93 (primary diagnosis) 2. 28 weeks gestation of ([facility]) - ICD9: V22.2, ICD10: Z3A.28 PTL precautions Lizeth Tate MD documented in this encounter [facility] 01-04-2025 Instructions Isabel Guzmán MA - 01/04/2025 1:27 PM EDT SEQUENTIAL SCREENINGS The [facility] offers sequential screenings for women who are interested in screenings for chromosomal abnormalities and certain defects during a . The sequential screen combines ultrasound and blood tests to determine the risk of chromosomal abnormalities, including Down's Syndrome (Trisomy 21) and Trisomy 18, as well as open neural tube defects including spina bifida. Ultrasound examination is performed between 11 weeks and 13 weeks gestational age. Blood tests are drawn after the ultrasound and again later in the between 15 and 21 weeks gestational age. Please let your physician know if you are interested in this testing. It will require an appointment with our environmental science technician. This is not an ultrasound performed by a physician in our office during a routine visit. SIGNS AND SYMPTOMS OF LABOR 1. Contractions every 10 minutes or more often 2. Clear, pink, or brownish fluid (water) leaking from vagina 3. Feeling that baby is pushing down, pressure 4. Low, dull backache 5. Cramps that feel like a period 6. Cramps with or without diarrhea If you notice any of the above symptoms, contact our office at [phone] and ask to speak with a nurse. After hours, you can call doctors registry at [phone] OR call [facility] at [phone] and ask to have the doctor school admissions representative paged. If you consider this an emergency, dial 9-1-0 or go to your nearest emergency department. NEED HELP? Are you dealing with a violent or abusive relationship? Are you a victim of rape or sexual assult? Call [facility] ([place]) 24 hour Crisis Hotline: 826.725.5521 or 124-049-1094. MANUAL Your Guide to a Healthy manual is now on-line. Visit [email or web address] to download your free copy documented in this encounter [facility] 12-23-2024 History of Presen t illness Narrative Images from the original note were not included. Allergy and Immunology I have communicated my name and active licensure. The patient's identity and physical location were verified at the time of this visit. Either the patient or their legal resources representative has been informed of the risks and benefits of, and alternatives to, treatment through a remote evaluation and consents to proceed with the evaluation remotely. Patient Name: López Bravo PRIMARY CARE PHYSICIAN: No primary care provider on file. REASON FOR CONSULT: Penicillin allergy REQUESTING PHYSICIAN: Carolyn Richmond APRN.* My final recommendations will be communicated to the requesting health care provider by way of the shared medical record for internal providers or letter via the USPS for external providers. CHIEF COMPLAINT: López is a 24-year-old female, , with a history of tachycardia, GERD, presenting for evaluation of potential penicillin allergy. HISTORY OF PRESENT ILLNESS: López is currently 26 weeks . She reports a history of possible penicillin allergy, noting a past reaction to amoxicillin characterized by emesis and abdominal discomfort. This reaction occurred while she was being treated for a UTI, which required hospitalization due to dehydration. She denies any history of urticaria or rash with amoxicillin. She has a family history of penicillin allergy, with both her mother and sister affected. She also reports a significant reaction to the Gardasil vaccine at age 14, which included severe leg weakness and somnolence lasting three days. She describes herself as having very sensitive skin, reacting to various soaps and shaving creams with bumps on her legs. She currently uses loratadine as needed for allergies. López has a history of tachycardia, with heart rates reaching 200 bpm. She has been on metoprolol 50 mg BID since age 18, which she reports effectively controls her heart rate but causes fatigue. PAST MEDICAL AND SURGICAL HISTORY: PAST MEDICAL HISTORY Diagnosis Date Tachycardia PAST SURGICAL HISTORY Procedure Laterality Date HEMATOMA EVACUATION 2002 chin ALLERGIES: is allergic to amoxil [amoxicillin] and gardasil [h papillomavirus vac,qval (pf)]. FAMILY HISTORY: FAMILY HISTORY Problem Relation Age of Onset Blood Disease Mother mtfhr Thyroid Mother Diabetes Father type 2 other (asd) Sister arterial spectrum defect Fibromyalgia Maternal Grandmother Coronary Artery Disease Maternal Grandmother other (htn) Maternal Grandmother other (mtfhr) Maternal Grandmother Stroke Maternal Grandfather Heart disease Paternal Grandmother REVIEW OF SYSTEMS: All systems were reviewed and were negative except as listed in the HPI and above. Constitutional: (+) fatigue, (+) sleep disturbance Gastrointestinal: (+) heartburn/acid reflux Neurological: (+) lightheadedness PHYSICAL EXAM: General: The patient is pleasant, well groomed, in no acute distress, breathing comfortably and interactive with the exam. Head: Normocephalic, atraumatic Musculoskeletal: Normal muscle tone and gait. Neurologic: Grossly non-focal Psych: Appropriate affect. Dermatologic: No rash, urticaria or excoriations. Assessment/Plan: Adverse effect of drug, initial encounter (T50.905A) Allergy to penicillin (Z88.0) Natural history of penicillin allergy was discussed. We discussed that in patients with IgE mediated penicillin allergy, 50% will no longer be allergic 5 years after the allergic reaction; 80% will no longer be allergic 10 years after the reaction. Recommend penicillin percutaneous and intradermal testing and if negative, graded oral challenge to amoxicillin. Scheduled penicillin allergy testing for March 02 at 10:30 AM in [place]. Instructed to withhold loratadine and other antihistamines one week prior to testing. Advised to skip morning dose of metoprolol on the day of testing, with permission to resume post-testing. Discussed medication dosage, usage, side effects, and goals of treatment in detail. Follow-up: Return in about 2 months (around 02/22/2025). Patient advised to call or return sooner should current symptoms worsen or fail to improve or if new symptoms or problems arise. Capri Brown MD Allergy and Immunology [facility] Recording using [employer] software for draft documentation of the visit was discussed with the patient/authorized resources representative; all questions welcomed and answered. Patient/authorized resources representative agreed to proceed I spent a total of 30 minutes on the date of the service which included preparing to see the patient, [id number] patient care, completing clinical documentation, obtaining and/or reviewing separately obtained history, performing a medically appropriate examination, counseling and educating the patient/family/caregiver, ordering medications, tests, or procedures, independently interpreting results (not separately reported), and communicating results to the patient/family/caregiver. documented in this encounter [facility] 12-23-2024 Note HNO ID: [id number] Author: CAPRI BROWN MD Service: ? Author Type: Physician Type: Progress Notes Filed: 12/23/2024 12:33 Note Text: Allergy and Immunology I have communicated my name and active licensure. The patient's identity and physical location were verified at the time of this visit. Either the patient or their legal resources representative has been informed of the risks and benefits of, and alternatives to, treatment through a remote evaluation and consents to proceed with the evaluation remotely. Patient Name: López Bravo PRIMARY CARE PHYSICIAN: No primary care provider on file. REASON FOR CONSULT: Penicillin allergy REQUESTING PHYSICIAN: Carolyn Richmond APRN.* My final recommendations will be communicated to the requesting health care provider by way of the shared medical record for internal providers or letter via the USPS for external providers. CHIEF COMPLAINT: López is a 24-year-old female, , with a history of tachycardia, GERD, presenting for evaluation of potential penicillin allergy. HISTORY OF PRESENT ILLNESS: López is currently 26 weeks . She reports a history of possible penicillin allergy, noting a past reaction to amoxicillin characterized by emesis and abdominal discomfort. This reaction occurred while she was being treated for a UTI, which required hospitalization due to dehydration. She denies any history of urticaria or rash with amoxicillin. She has a family history of penicillin allergy, with both her mother and sister affected. She also reports a significant reaction to the Gardasil vaccine at age 14, which included severe leg weakness and somnolence lasting three days. She describes herself as having very sensitive skin, reacting to various soaps and shaving creams with bumps on her legs. She currently uses loratadine as needed for allergies. López has a history of tachycardia, with heart rates reaching 200 bpm. She has been on metoprolol 50 mg BID since age 18, which she reports effectively controls her heart rate but causes fatigue. PAST MEDICAL AND SURGICAL HISTORY: PAST MEDICAL HISTORY Diagnosis Date Tachycardia PAST SURGICAL HISTORY Procedure Laterality Date HEMATOMA EVACUATION 2002 chin ALLERGIES: is allergic to amoxil [amoxicillin] and gardasil [h papillomavirus vac,qval (pf)]. FAMILY HISTORY: FAMILY HISTORY Problem Relation Age of Onset Blood Disease Mother mtfhr Thyroid Mother Diabetes Father type 2 other (asd) Sister arterial spectrum defect Fibromyalgia Maternal Grandmother Coronary Artery Disease Maternal Grandmother other (htn) Maternal Grandmother other (mtfhr) Maternal Grandmother Stroke Maternal Grandfather Heart disease Paternal Grandmother REVIEW OF SYSTEMS: All systems were reviewed and were negative except as listed in the HPI and above. Constitutional: (+) fatigue, (+) sleep disturbance Gastrointestinal: (+) heartburn/acid reflux Neurological: (+) lightheadedness PHYSICAL EXAM: General: The patient is pleasant, well groomed, in no acute distress, breathing comfortably and interactive with the exam. Head: Normocephalic, atraumatic Musculoskeletal: Normal muscle tone and gait. Neurologic: Grossly non-focal Psych: Appropriate affect. Dermatologic: No rash, urticaria or excoriations. Assessment/Plan: Adverse effect of drug, initial encounter (T50.905A) Allergy to penicillin (Z88.0) Natural history of penicillin allergy was discussed. We discussed that in patients with IgE mediated penicillin allergy, 50% will no longer be allergic 5 years after the allergic reaction; 80% will no longer be allergic 10 years after the reaction. Recommend penicillin percutaneous and intradermal testing and if negative, graded oral challenge to amoxicillin. Scheduled penicillin allergy testing for March 02 at 10:30 AM in [place]. Instructed to withhold loratadine and other antihistamines one week prior to testing. Advised to skip morning dose of metoprolol on the day of testing, with permission to resume post-testing. Discussed medication dosage, usage, side effects, and goals of treatment in detail. Follow-up: Return in about 2 months (around 02/22/2025). Patient advised to call or return sooner should current symptoms worsen or fail to improve or if new symptoms or problems arise. Capri Brown MD Allergy and Immunology [facility] Recording using [employer] software for draft documentation of the visit was discussed with the patient/authorized resources representative; all questions welcomed and answered. Patient/authorized resources representative agreed to proceed I spent a total of 30 minutes on the date of the service which included preparing to see the patient, [id number] patient care, completing clinical documentation, obtaining and/or reviewing separately obtained history, performing a medically appropriate examination, counseling an (more content not included)... [facility] 12-21-2024 Progress note Formatting of t his note might be different from the original. Anatomy ultrasound reviewed. No abnormalities identified. Follow up as clinically indicated. Please place copy in ob chart. Albert Swift MD [facility] 12-21-2024 Miscellaneous Notes Anatomy ultrasound reviewed. No abnormalities identified. Follow up as clinically indicated. Please place copy in ob chart. Albert Swift MD documented in this encounter [facility] 12-20-2024 Progress note Formatting of t his note might be different from the original. S: López Bravo is a 24 year old female who presents at 25 weeks gestation for a routine visit. Not seen in office since 16 weeks gestation due to transportation issues. Currently getting transportation from [facility]. Positive feta movements. Denies headache, visual changes, chest pain, shortness of breath, vaginal bleeding, leakage of fluid, or dysuria. Still having occasional episodes of heart racing and feeling dizzy. O: See flow sheet Gen: No apparent distress Abd: Gravid, non tender ASSESSMENT/PLAN: 1. 25 weeks gestation of 2. Screening for diabetes mellitus 3. Supervision of high risk in second trimester 4. Transportation insecurity 5. Tachycardia 6. Penicillin allergy - Consult to [facility] allergy clinic for testing - Patient of Cardiology at [place]- Continue metoprolol 100 mg PO daily - Continue ASA - Continue vitamin - Stressed importance of coming to all visits - PTL precautions and when to call office - RTO 3 weeks for LUIS with GCT Carolyn Richmond APRN.CNM [facility] 12-20-2024 Miscellaneous Notes S: López Bravo is a 24 year old female who presents at 25 weeks gestation for a routine visit. Not seen in office since 16 weeks gestation due to transportation issues. Currently getting transportation from [facility]. Positive feta movements. Denies headache, visual changes, chest pain, shortness of breath, vaginal bleeding, leakage of fluid, or dysuria. Still having occasional episodes of heart racing and feeling dizzy. O: See flow sheet Gen: No apparent distress Abd: Gravid, non tender ASSESSMENT/PLAN: 1. 25 weeks gestation of 2. Screening for diabetes mellitus 3. Supervision of high risk in second trimester 4. Transportation insecurity 5. Tachycardia 6. Penicillin allergy - Consult to [facility] allergy clinic for testing - Patient of Cardiology at [place]- Continue metoprolol 100 mg PO daily - Continue ASA - Continue vitamin - Stressed importance of coming to all visits - PTL precautions and when to call office - RTO 3 weeks for LUIS with GCT Carolyn Richmond APRN.CNM documented in this encounter [facility] 12-20-2024 Instructions Deb Weiss MA - 12/20/2024 2:45 PM EDT SEQUENTIAL SCREENINGS The [facility] offers sequential screenings for women who are interested in screenings for chromosomal abnormalities and certain defects during a . The sequential screen combines ultrasound and blood tests to determine the risk of chromosomal abnormalities, including Down's Syndrome (Trisomy 21) and Trisomy 18, as well as open neural tube defects including spina bifida. Ultrasound examination is performed between 11 weeks and 13 weeks gestational age. Blood tests are drawn after the ultrasound and again later in the between 15 and 21 weeks gestational age. Please let your physician know if you are interested in this testing. It will require an appointment with our environmental science technician. This is not an ultrasound performed by a physician in our office during a routine visit. SIGNS AND SYMPTOMS OF LABOR 1. Contractions every 10 minutes or more often 2. Clear, pink, or brownish fluid (water) leaking from vagina 3. Feeling that baby is pushing down, pressure 4. Low, dull backache 5. Cramps that feel like a period 6. Cramps with or without diarrhea If you notice any of the above symptoms, contact our office at [phone] and ask to speak with a nurse. After hours, you can call doctors registry at [phone] OR call [facility] at [phone] and ask to have the doctor school admissions representative paged. If you consider this an emergency, dial 6-8-4 or go to your nearest emergency department. NEED HELP? Are you dealing with a violent or abusive relationship? Are you a victim of rape or sexual assult? Call [facility] ([place]) 24 hour Crisis Hotline: 507.859.2179 or 060-326-0557. MANUAL Your Guide to a Healthy manual is now on-line. Visit [email or web address] [email or web address] to download your free copy documented in this encounter [facility] 12-13-2024 Telephone encounter Note Patient scheduled for growth u/s and OB visit on 12/20. Val Liu RN [facility] 12-13-2024 Miscellaneous Notes Patient scheduled for growth u/s and OB visit on 12/20. Val Liu RN Thank you. Please assist patient in getting an appointment and then she can schedule transportation after discussing with medicaid. Thank you, Lidia Raza APRN.CNM See Sw 12/09 note regarding Sw response to below message. Spoke with patient and states she was still planning on continuing care here at [place]. Patient states she has problems with transportation because her mom boyfriend is the only one with a car and he works [employer]. Patient states she also gets sick on the car ride. Discussed with patient possibly getting care in [place] at [facility] office there at it is closer or getting in touch with social work here to help with transportation issues to office. After lengthy discussion with patient and patients mother they would like to speak with social work to see what kind of options are available to help with transportation before making a decision. Discussed with patient that she has not been seen for 8 weeks and that appointments will need to be occurring more frequently the farther along in . Does consult need to be placed? Will route message to GILBERT Mercedes as well. Pina Perea RN Did patient transfer care? No office visit since 16 weeks. Can you please assist in scheduling soonest appointment this week or find out if she transferred. Would recommend repeat growth US in our office. Measuring behind and recommend follow up US. Lidia Raza APRN.CNM documented in this encounter [facility] 12-13-2024 Telephone encounter Note Thank you. Please assist patient in getting an appointment and then she can schedule transportation after discussing with medicaid. Thank you, Lidia Raza APRN.CNM [facility] 12-13-2024 Telephone encounter Note See Sw 12/09 note regarding response to below message. [facility] 12-08-2024 Telephone encounter Note Spoke with patient and states she was still planning on continuing care here at [place]. Patient states she has problems with transportation because her mom boyfriend is the only one with a car and he works [employer]. Patient states she also gets sick on the car ride. Discussed with patient possibly getting care in [place] at [employer] office there at it is closer or getting in touch with social work here to help with transportation issues to office. After lengthy discussion with patient and patients mother they would like to speak with social work to see what kind of options are available to help with transportation before making a decision. Discussed with patient that she has not been seen for 8 weeks and that appointments will need to be occurring more frequently the farther along in . Does consult need to be placed? Will route message to GILBERT Mercedes as well. Pina Perea, RN [facility] 12-08-2024 Telephone encounter Note Did patient transfer care? No office visit since 16 weeks. Can you please assist in scheduling soonest appointment this week or find out if she transferred. Would recommend repeat growth US in our office. Measuring behind and recommend follow up US. Lidia Raza APRN.CNM [facility] 11-30-2024 Telephone encounter Note Pt's mother notified and stated she did have Pt try a popsicle. Voiced understanding. Lillian Bhavin, RN [facility] 11-30-2024 Miscellaneous Notes Pt's mother notified and stated she did have Pt try a popsicle. Voiced understanding. Lillian Avilez RN If signs of dehydration then recommend going to ED. Stefanie Campbell MD 23w0d Patient's mother called and then placed patient on the phone. Patient has vomited a total of 8 times since 5 PM. Able to keep water down as long as she just sips on it. Afebrile. Feels chilled. Mother states that herself, the patient, and her other daughter ate part of a hoagie last night and they all began vomiting later that night. Denies cramping or bleeding. Advised that if she is unable to keep any fluids down for 24 hours to go to ER for IV hydration. Patient to call if she develops bleeding or cramping. Recommended patient introduce bland foods gradually as tolerated. Aware she is over due for OB visit. Mother states they have transportation issues. In the past patient has declined social work contacting her with assistance in finding transportation. Last seen 10/14/24 for 16 week visit. Had anatomy at [place]. Please advise. Please call mother's phone as patient is going to try and get some rest. [phone] Lizeth Gleason, PREETI documented in this encounter [facility] 11-30-2024 Telephone encounter Note If signs of dehydration then recommend going to ED. Stefanie Campbell MD [facility] 11-30-2024 Telephone encounter Note 23w0d Patient's mother called and then placed patient on the phone. Patient has vomited a total of 8 times since 5 PM. Able to keep water down as long as she just sips on it. Afebrile. Feels chilled. Mother states that herself, the patient, and her other daughter ate part of a hoagie last night and they all began vomiting later that night. Denies cramping or bleeding. Advised that if she is unable to keep any fluids down for 24 hours to go to ER for IV hydration. Patient to call if she develops bleeding or cramping. Recommended patient introduce bland foods gradually as tolerated. Aware she is over due for OB visit. Mother states they have transportation issues. In the past patient has declined social work contacting her with assistance in finding transportation. Last seen 10/14/24 for 16 week visit. Had anatomy at [place]. Please advise. Please call mother's phone as patient is going to try and get some rest. [phone] Lizeth Gleason RN [facility] 11-26-2024 Note HNO ID: [id number] Author: LIZETH GLEASON RN Service: ? Author Type: Registered Nurse Type: Progress Notes Filed: 11/26/2024 08:12 Note Text: Received anatomy scan report from [place]. [facility] Scan on 11/25/2024 5:10 PM by ProviderNiranjan PA-C: Anatomy [facility] 11-26-2024 History of Presen t illness Narrative Received anatomy scan report from [place]. Copy sent to L&D. Scan on 11/25/2024 5:10 PM by ProviderNiranjan PA-C: Anatomy documented in this encounter [facility] 11-16-2024 Telephone encounter Note Order faxed [facility] 11-16-2024 Miscellaneous Notes Order faxed 21w0d Patient would like to have her anatomy US at [place]. Please file pending order. The ones we have on file are for 12-13 weeks. Thank you. We will then fax it for patient. Lizeth Gleason RN documented in this encounter [facility] 11-16-2024 Telephone encounter Note Patient sent Mychart message with Facebook's fax number. Lizeth Gleason RN [facility] 11-16-2024 Miscellaneous Notes Patient sent Mychart message with [employer]'s fax number. Lizeth Gleason RN 20w6d Patient's anatomy US on 11/23 was only scheduled for 30 min. Our next 60 min opening is 11/30/24. Patient may want to have her anatomy at [facility] if they have a sooner visit. If so, she will send us a Mychart message with their fax number. Otherwise she will schedule in our office. Patient lives an hour away and has transportation issues. Advised that we could direct to our social worker clinical for transportation resources. Patient states her mom's friend offered to drive her. Lizeth Gleason RN documented in this encounter [facility] 11-16-2024 Telephone encounter Note 21w0d Patient would like to have her anatomy US at [place]. Please file pending order. The ones we have on file are for 12-13 weeks. Thank you. We will then fax it for patient. Lizeth Gleason RN [facility] 11-15-2024 Telephone encounter Note 20w6d Patient's anatomy US on 11/23 was only scheduled for 30 min. Our next 60 min opening is 11/30/24. Patient may want to have her anatomy at [facility] if they have a sooner visit. If so, she will send us a [employer] message with their fax number. Otherwise she will schedule in our office. Patient lives an hour away and has transportation issues. Advised that we could direct to our social worker clinical for transportation resources. Patient states her mom's friend offered to drive her. Lizeth Gleason RN [facility] 10-18-2024 Telephone encounter Note I am sorry but I am unable to write her off of work. This would need to come from cardiology but not seen in his last note for a recommendation. She has no other medical concerns that would cause her to not be able to work at this time. If desires, can discuss further at a visit. Thank you, Lidia Raza APRN.CNM [facility] 10-18-2024 Miscellaneous Notes I am sorry but I am unable to write her off of work. This would need to come from cardiology but not seen in his last note for a recommendation. She has no other medical concerns that would cause her to not be able to work at this time. If desires, can discuss further at a visit. Thank you, Lidia Raza APRN.CNM 16w6d Patient's mother calling for patient. [facility] patient is requesting letter stating that she is unable to work d/t cardiac history and . She has been so exhausted and sleeping constantly that she has not been working, does not have a job. 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 She did not discuss this at visit last week. Next visit is 11/10/24. Val Liu RN documented in this encounter [facility] 10-18-2024 Telephone encounter Note 16w6d Patient's mother calling for patient. [facility] patient is requesting letter stating that she is unable to work d/t cardiac history and . She has been so exhausted and sleeping constantly that she has not been working, does not have a job. 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 She did not discuss this at visit last week. Next visit is 11/10/24. Val Liu RN [facility] 10-15-2024 Telephone encounter Note Noted. Thanks! Stefanie Campbell MD [facility] 10-15-2024 Miscellaneous Notes Noted. Thanks! Stefanie Campbell MD Patient called back and states she is currently taking Metoprolol 50 mg BID. Patient states she is scheduled for her echocardiogram on 10/27 at [facility]. Pina Perea RN Attempted to contact patient but no answer and unable to leave a message as voicemail box is full. MyChart message sent. Pina Perea RN Please call patient and confirm her metoprolol dose. Also recommended an echo. Is she getting that at [facility] or can I order it at [facility]? Thanks! Stefanie Campbell MD documented in this encounter [facility] 10-15-2024 Telephone encounter Note Patient called back and states she is currently taking Metoprolol 50 mg BID. Patient states she is scheduled for her echocardiogram on 10/27 at [facility]. Pina Perea RN [facility] 10-15-2024 Telephone encounter Note Attempted to contact patient but no answer and unable to leave a message as voicemail box is full. MyChart message sent. Pina Perea RN [facility] 10-15-2024 Telephone encounter Note Please call patient and confirm her metoprolol dose. Also recommended an echo. Is she getting that at [facility] or can I order it at [facility]? Thanks! Stefanie Campbell MD [facility] 10-14-2024 Progress note Formatting of t his note might be different from the original. KJ - S: López denies LOF, contractions or vaginal bleeding. O: 16w2d, see flow sheet SENSITIVE EXAM: Sensitive exam not performed. A/P: Assessment & Plan 16 weeks gestation of Supervision of high risk in second trimester UTI (urinary tract infection) in , antepartum Orders: BACTERIAL CULTURE, URINE Tachycardia Patient saw cardiology at [facility]. She is on metoprolol 50mg bid. Also maternal echo recommended. Patient aware of risks or metoprolol in . Anatomy US scheduled Stefanie Campbell MD [facility] 10-14-2024 Miscellaneous Notes KJ - S: López denies LOF, contractions or vaginal bleeding. O: 16w2d, see flow sheet SENSITIVE EXAM: Sensitive exam not performed. A/P: Assessment & Plan 16 weeks gestation of Supervision of high risk in second trimester UTI (urinary tract infection) in , antepartum Orders: BACTERIAL CULTURE, URINE Tachycardia Patient saw cardiology at [facility]. She is on metoprolol 50mg bid. Also maternal echo recommended. Patient aware of risks or metoprolol in . Anatomy US scheduled Stefanie Campbell MD documented in this encounter [facility] 10-14-2024 Instructions Deb Weiss MA - 10/14/2024 1:41 PM EST SEQUENTIAL SCREENINGS The [facility] offers sequential screenings for women who are interested in screenings for chromosomal abnormalities and certain defects during a . The sequential screen combines ultrasound and blood tests to determine the risk of chromosomal abnormalities, including Down's Syndrome (Trisomy 21) and Trisomy 18, as well as open neural tube defects including spina bifida. Ultrasound examination is performed between 11 weeks and 13 weeks gestational age. Blood tests are drawn after the ultrasound and again later in the between 15 and 21 weeks gestational age. Please let your physician know if you are interested in this testing. It will require an appointment with our environmental science technician. This is not an ultrasound performed by a physician in our office during a routine visit. SIGNS AND SYMPTOMS OF LABOR 1. Contractions every 10 minutes or more often 2. Clear, pink, or brownish fluid (water) leaking from vagina 3. Feeling that baby is pushing down, pressure 4. Low, dull backache 5. Cramps that feel like a period 6. Cramps with or without diarrhea If you notice any of the above symptoms, contact our office at [phone] and ask to speak with a nurse. After hours, you can call doctors registry at [phone] OR call [facility] at [phone] and ask to have the doctor school admissions representative paged. If you consider this an emergency, dial 9--6 or go to your nearest emergency department. NEED HELP? Are you dealing with a violent or abusive relationship? Are you a victim of rape or sexual assult? Call [facility] ([place]) 24 hour Crisis Hotline: 945.171.4539 or 731-246-1646. MANUAL Your Guide to a Healthy manual is now on-line. Visit [email or web address] to download your free copy documented in this encounter [facility] 10-06-2024 Telephone encounter Note Patient notified and was told to get labs drawn at [facility] 10-06-2024 Miscellaneous Notes Patient notified and was told to get labs drawn at [facility] The patient was supposed to get a first trimester early anatomy Ultrasound/NST. At her visit we discussed getting US within 1-2 wks of her visit. She is past this at this time and would recommend just waiting till 19-20 weeks for formal US. Lidia Raza APRN.CNM Ob patient is 15w1d and called stating that she is scheduled for an ultrasound tomorrow at [facility]. Patient thought the order was for an anatomy ultrasound. Is this an early anatomy ultrasound? Patient cancelled nuchal ultrasound on 09/27/2024 that was scheduled here and order was faxed to [place] and they scheduled patient for tomorrow. Please advise if patient should cancel ultrasound for tomorrow? documented in this encounter [facility] 10-06-2024 Telephone encounter Note The patient was supposed to get a first trimester early anatomy Ultrasound/NST. At her visit we discussed getting US within 1-2 wks of her visit. She is past this at this time and would recommend just waiting till 19-20 weeks for formal US. Lidia Raza APRN.CNM [facility] 10-06-2024 Telephone encounter Note Ob patient is 15w1d and called stating that she is scheduled for an ultrasound tomorrow at [facility]. Patient thought the order was for an anatomy ultrasound. Is this an early anatomy ultrasound? Patient cancelled nuchal ultrasound on 09/27/2024 that was scheduled here and order was faxed to [place] and they scheduled patient for tomorrow. Please advise if patient should cancel ultrasound for tomorrow? [facility] 09-30-2024 Telephone encounter Note Patient notified and voiced understanding. Lab order faxed to [facility]. Pina Perea RN [facility] 09-30-2024 Miscellaneous Notes Patient notified and voiced understanding. Lab order faxed to [facility]. Pina Perea RN See Pt's mychart message on telephone note from 09/24/24. Please sign [id number] order as current order in chart-status is pending future. Once filed, will print and fax order to [facility] and contact Pt. Responded to Pt's [employer] message informing her BLADIMIR does not return to office until Friday. Lillian Avilez RN Pt notified, lab and US orders faxed to [facility]. Pt does want [id number] and interested in knowing gender. Unsure if [facility] does this-Pt is going to call and check and will let office know. Pt also advised to call [facility] to get lab and US appt scheduled for this week and keep OB appt scheduled for 10/12/24. Pt voiced understanding. Lillian Avilez RN It will not be a nuchal but early anatomy US. I would recommend here but if unable to get in the next week can get at [facility], fax order and recommend within the week. Will need appointment at 16 wk and does not need seen sooner. I was just seeing her after US for labs. She was supposed to get labs done day of US so will still need to complete those and also wanted to follow up her thyroid studies and if she wanted NIPT. Lidia Raza APRN.CNM 13w6d Pt went to [facility] 09/24/24 as advised. US of abdomen completed. Dx UTI. IV fluids given. Nausea medication given. IV antibiotics given. Was in ER for approximately 5 hours. Pt now feeling better, has not vomited since discharged. Denies dysuria. Pt states she was advised to continue taking the PO Keflex as prescribed by Lidia Raza APRN, CNM. Pt calling to cancel appointments for today d/t weather. Pt needs afternoon appointments and asking if Nuchal can be done at [facility]. Pt's next OB appt is currently scheduled 10/12/24. Do you want her scheduled next week, instead of 10/12/24? And is Nuchal able to be completed at ? Please advise. Lillian Avilez RN documented in this encounter [facility] 09-29-2024 Telephone encounter Note See Pt's [employer] message on telephone note from 09/24/24. Please sign [id number] order as current order in chart-status is pending future. Once filed, will print and fax order to [facility] and contact Pt. Responded to Pt's [employer] message informing her BLADIMIR does not return to office until Friday. Lillian Avilez RN [facility] 09-27-2024 Telephone encounter Note Pt notified, lab and US orders faxed to [facility]. Pt does want [id number] and interested in knowing gender. Unsure if [facility] does this-Pt is going to call and check and will let office know. Pt also advised to call [facility] to get lab and US appt scheduled for this week and keep OB appt scheduled for 10/12/24. Pt voiced understanding. Lillian Avilez RN [facility] 09-27-2024 Telephone encounter Note It will not be a nuchal but early anatomy US. I would recommend here but if unable to get in the next week can get at [facility], fax order and recommend within the week. Will need appointment at 16 wk and does not need seen sooner. I was just seeing her after US for labs. She was supposed to get labs done day of US so will still need to complete those and also wanted to follow up her thyroid studies and if she wanted NIPT. Lidia Raza APRN.CNM [facility] 09-27-2024 Telephone encounter Note 13w6d Pt went to [facility] 09/24/24 as advised. US of abdomen completed. Dx UTI. IV fluids given. Nausea medication given. IV antibiotics given. Was in ER for approximately 5 hours. Pt now feeling better, has not vomited since discharged. Denies dysuria. Pt states she was advised to continue taking the PO Keflex as prescribed by Lidia Raza APRN, MIRIAM. Pt calling to cancel appointments for today d/t weather. Pt needs afternoon appointments and asking if Nuchal can be done at [facility]. Pt's next OB appt is currently scheduled 10/12/24. Do you want her scheduled next week, instead of 10/12/24? And is Nuchal able to be completed at ? Please advise. Lillian Avilez RN [facility] 09-24-2024 Note Discharge Instructio ns Discharge Summary [facility] [address] [place] [address] [phone] 09/24/2024 Patient: LÓPEZ BRAVO Sex: Female : 2000 Age: 24y Thank you for visiting [facility]. You have been evaluated today by Nicolasa Zurita D.O. for the following condition(s): Principal Diagnosis First trimester . Acute urinary tract infection with cystitis. No pyelonephritis or hematuria. Not associated with indwelling catheter. INSTRUCTIONS Take Tylenol (Acetaminophen) or Motrin (Ibuprofen) as needed for fever control. Take medication according to label instructions. Drink plenty of fluids. No dietary restrictions. (push clear fluids. Continue your oral Keflex/cephalexin as directed. He may continue all your regular medications. Follow-up with your OB doctor on Friday as scheduled, your welcome to return if acutely worse or any worrisome symptoms.). Warnings: Further evaluation is necessary (SEE your OB FRIDAY as scheduled). It is very important to follow up with a healthcare provider. GENERAL WARNINGS: Return or contact your physician immediately if your condition worsens or changes unexpectedly, if not improving as expected, or if other problems arise. SPECIFICALLY, return if you develop fever or the inability to keep fluids down; or for continued pain or vomiting. Follow-up: Follow up with an concrete truck driver in three days as scheduled. Reason for referral: evaluation and treatment. Summary of care provided to patient and family. 1 of 6 Discharge Instructions Understanding of the discharge instructions verbalized by patient and family. You have been given the following additional information: Bladder Infection, Female (Adult) Patient Signature Facility [employer] Date/Time General Instructions with ExitWriter [facility] [address] [place] [address] [phone] 09/24/2024 Patient: LÓPEZ BRAVO Sex: Female : 2000 Age: 24y Thank you for visiting [facility]. You have been evaluated today by Nicolasa Zurita D.O. for the following condition(s): Principal Diagnosis First trimester . Acute urinary tract infection with cystitis. No pyelonephritis or hematuria. Not associated with indwelling catheter. INSTRUCTIONS Take Tylenol (Acetaminophen) or Motrin (Ibuprofen) as needed for fever control. Take medication according to label instructions. Drink plenty of fluids. No dietary restrictions. (push clear fluids. Continue your oral Keflex/cephalexin as directed. He may continue all your regular medications. Follow-up with your OB doctor on Friday as scheduled, your welcome to return if acutely worse or 2 of 6 Discharge Instructions any worrisome symptoms.). Warnings: Further evaluation is necessary (SEE your OB FRIDAY as scheduled). It is very important to follow up with a healthcare provider. GENERAL WARNINGS: Return or contact your physician immediately if your condition worsens or changes unexpectedly, if not improving as expected, or if other problems arise. SPECIFICALLY, return if you develop fever or the inability to keep fluids down; or for continued pain or vomiting. Follow-up: Follow up with an concrete truck driver in three days as scheduled. Reason for referral: evaluation and treatment. Summary of care provided to patient and family. Understanding of the discharge instructions verbalized by patient and family. ADDITIONAL INFORMATION Bladder Infection, Female (Adult) Urine normally doesn't have any germs (bacteria) in it. But bacteria can get into the urinary tract from the skin around the rectum. Or they can travel in the blood from other parts of the body. Once they are in your urinary tract, they can cause infection in these areas: The urethra (urethritis) The bladder (cystitis) The kidneys (pyelonephritis) 3 of 6 Discharge Instructions The most common place for an infection is in the bladder. This is called a bladder infection. This is one of the most common infections in women. Most bladder infections are easily treated. They are not serious unless the infection spreads to the kidney. The terms bladder infection, UTI, and cystitis are often used to describe the same thing. But they are not always the same. Cystitis is an inflammation of the bladder. The most common cause of cystitis is an infection. Symptoms The infection causes inflammation in the urethra and bladder. This causes many of the symptoms. The most common symptoms of a bladder infection are: Pain or burning when urinating Having to urinate more often than normal Urgent need to urinate Only a small amount of urine comes out Blood in urine Belly (abdominal) discomfort. This is often in the lower belly above the pubic bone. Cloudy urin (more content not included)... [facility] 09-24-2024 Telephone encounter Note Pt's mother calls-advised her I cannot speak to her without Pt's guidance. Pt got on phone and gave permission to speak to mother. Pt's mother states she can take her tonight after she gets off of work 4:30pm-10:30pm as Pt wants mom to be with her. She states Pt vomited yesterday. Unable to take heart medication d/t nausea. 97.7 temporal thermometer reading per Pt's mother at this time. Pt's been able to drink water only. Pt's mother states Pt will try to take her Metoprolol now and if Pt is unable to keep it down, they will go straight to ER. If Pt is able keep down, she will take Pt to ER after work tonight because Pt wants her to be with her. Strongly advised Pt to go sooner rather than later with history of tachycardia, with likely being dehydrated, and with kidney stone or the start of pyelo, it is essential she be evaluated regina. Pt's mother voiced understanding and stated Pt would be going to [facility]. Lillian Avilez RN [facility] 09-24-2024 Miscellaneous Notes Pt's mother calls-advised her I cannot speak to her without Pt's guidance. Pt got on phone and gave permission to speak to mother. Pt's mother states she can take her tonight after she gets off of work 4:30pm-10:30pm as Pt wants mom to be with her. She states Pt vomited yesterday. Unable to take heart medication d/t nausea. 97.7 temporal thermometer reading per Pt's mother at this time. Pt's been able to drink water only. Pt's mother states Pt will try to take her Metoprolol now and if Pt is unable to keep it down, they will go straight to ER. If Pt is able keep down, she will take Pt to ER after work tonight because Pt wants her to be with her. Strongly advised Pt to go sooner rather than later with history of tachycardia, with likely being dehydrated, and with kidney stone or the start of pyelo, it is essential she be evaluated regina. Pt's mother voiced understanding and stated Pt would be going to [facility]. Lillian Avilez RN Attempted to contact patient. No answer and unable to leave a message. Lizeth Gleason RN Sounds like she might have a kidney stone or the start of pyelo. Any fevers? Keflex is susceptible on culture results. A different antibiotic probable won't stay down either. She may need IV hydration and IV/IM antibiotics. I'd recommend ED if she's willing. 13w3d Calling with pelvic and back pain. Pain started yesterday and interrupted her sleep last night. Pain is right lower pelvic/pressure and radiates to bilateral lower back. States the pressure is from UTI symptoms that haven't improved yet with medication. Urinating small frequent amounts only. She is on day 5 of cephalexin for it and feels her symptoms are getting worse. Heating pad helps back. She has to lay still on back for pain to get better. Pain gets severe at times that she has been vomiting d/t it. Missed two doses antibiotic yesterday d/t vomiting. Vomiting only bile yesterday. Should she try a different antibiotic? Val Liu RN documented in this encounter [facility] 09-24-2024 Telephone encounter Note Attempted to contact patient. No answer and unable to leave a message. Lizeth Gleason RN [facility] 09-24-2024 Telephone encounter Note Sounds like she might have a kidney stone or the start of pyelo. Any fevers? Keflex is susceptible on culture results. A different antibiotic probable won't stay down either. She may need IV hydration and IV/IM antibiotics. I'd recommend ED if she's willing. [facility] Work Phone: 09-24-2024 Telephone encounter Note 13w3d Calling with pelvic and back pain. Pain started yesterday and interrupted her sleep last night. Pain is right lower pelvic/pressure and radiates to bilateral lower back. States the pressure is from UTI symptoms that haven't improved yet with medication. Urinating small frequent amounts only. She is on day 5 of cephalexin for it and feels her symptoms are getting worse. Heating pad helps back. She has to lay still on back for pain to get better. Pain gets severe at times that she has been vomiting d/t it. Missed two doses antibiotic yesterday d/t vomiting. Vomiting only bile yesterday. Should she try a different antibiotic? Val Liu RN [facility] 09-20-2024 Telephone encounter Note Talked to patient and advised monistat is safe in . Discussed labs will be done at next visit and to call to schedule pcn allergy testing. Val Liu RN [facility] 09-20-2024 Miscellaneous Notes Talked to patient and advised monistat is safe in . Discussed labs will be done at next visit and to call to schedule pcn allergy testing. Val Liu RN documented in this encounter [facility] 09-17-2024 Telephone encounter Note Records placed in scanning. Lillian Avilez RN [facility] 09-17-2024 Miscellaneous Notes Records placed in scanning. Lillian Avilez RN Thank you, I will review at this time. Lidia Raza APRN.CNM Cardiology records received from visit on 09/15/24 and placed in BLADIMIR inbox for review. Lillian Avilez RN Called Pt to see if she had requested records be sent to our office after cardiology visit yesterday. Pt stated she did. Pt then began to elaborate how she was so pleased with the kindness of our office, but was very displeased with the care she received from [facility], specifically Dr. Larry. She felt like she was not being listened to, said he seemed to be slightly argumentative with her mother and boyfriend, and just overall was not kind. She States he has continued her aspirin, Pepcid, and has decreased her Metoprolol to 50mg in the morning and 50mg at night. Apologized to patient for her experience with [facility] and advised her to talk to [facility] if she felt she was dissatisfied with her care. Called [facility] and records will be faxed to our office. Lillian Avilez RN Images from the original note were not included. Lidia Raza APRN.CNM P [facility] Ob-Telephone Sterilizer Pool Patient seen at [facility] yesterday. Can we please request records. I asked patient to request them to be sent but just want to make sure we get them. Thank you, Lidia Raza APRN.CNM documented in this encounter [facility] 09-16-2024 Telephone encounter Note Thank you, I will review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 pt's number and ULVM due to it being full. Unable to send MCM with resources since MyChart is not active. Thank you, Delilah Payne LPN documented in this encounter [facility] Evaluation note Diagnosis with uncertain dates, antepartum- Primary state, incidental Urinary tract infection without hematuria, site unspecified Encounter for screening for malignant neoplasm of cervix Screening for malignant neoplasm of the cervix Vaginal discharge Leukorrhea, not specified as infective Hypothyroidism, unspecified type Supervision of high risk in first trimester Unspecified high-risk Tachycardia Tachycardia, unspecified UTI (urinary tract infection) in , antepartum Infections of genitourinary tract antepartum [facility] Penicillin allergy- Primary Personal history of allergy to penicillin Supervision of high risk in second trimester Unspecified high-risk Type 1 diabetes mellitus affecting , antepartum 12 weeks gestation of state, incidental [facility] Encounter for screening of mother- Primary Unspecified screening documented in this encounter [facility] note* Diagnosis 16 weeks gestation of - Primary state, incidental Supervision of high risk in second trimester Unspecified high-risk UTI (urinary tract infection) in , antepartum Infections of genitourinary tract antepartum Tachycardia Tachycardia, unspecified * Assessment & Plan Note - Stefanie Campbell MD - 10/15/2024 12:30 PM ESTAssociated Problem(s): UTI (urinary tract infection) in , antepartum Orders: BACTERIAL CULTURE, URINE * Assessment & Plan Note - Stefanie Campbell MD - 10/15/2024 12:30 PM ESTAssociated Problem(s): Tachycardia Patient saw cardiology at [facility]. She is on metoprolol 50mg bid. Also maternal echo recommended. Patient aware of risks or metoprolol in . Anatomy US scheduled documented in this encounter [facility] note* Diagnosis 16 weeks gestation of (HCC)- Primary state, incidental Supervision of high risk in second trimester ([facility]) Unspecified high-risk UTI (urinary tract infection) in , antepartum ([facility]) Infections of genitourinary tract antepartum Tachycardia Tachycardia, unspecified Encounter for anatomic survey ([facility])- Primary Encounter for anatomic survey documented in this encounter [facility] note* Diagnosis 16 weeks gestation of (HCC)- Primary state, incidental Supervision of high risk in second trimester (HCC) Unspecified high-risk UTI (urinary tract infection) in , antepartum ([facility]) Infections of genitourinary tract antepartum Tachycardia Tachycardia, unspecified Transportation insecurity- Primary documented in this encounter [facility] note* Diagnosis 16 weeks gestation of ([facility])- Primary state, incidental Supervision of high risk in second trimester ([facility]) Unspecified high-risk UTI (urinary tract infection) in , antepartum ([facility]) Infections of genitourinary tract antepartum Tachycardia Tachycardia, unspecified 25 weeks gestation of ([facility])- Primary state, incidental Screening for diabetes mellitus Supervision of high risk in second trimester ([facility]) Unspecified high-risk Transportation insecurity Tachycardia Tachycardia, unspecified Penicillin allergy Personal history of allergy to penicillin [facility] Diagnosis 16 weeks gestation of ([facility])- Primary state, incidental Supervision of high risk in second trimester ([facility]) Unspecified high-risk UTI (urinary tract infection) in , antepartum ([facility]) Infections of genitourinary tract antepartum Tachycardia Tachycardia, unspecified Encounter for anatomic survey ([facility])- Primary Encounter for anatomic survey Late care affecting , antepartum ([facility]) 25 weeks gestation of ([facility]) state, incidental documented in this encounter [facility] note* Diagnosis 16 weeks gestation of ([facility])- Primary state, incidental Supervision of high risk in second trimester ([facility]) Unspecified high-risk UTI (urinary tract infection) in , antepartum ([facility]) Infections of genitourinary tract antepartum Tachycardia Tachycardia, unspecified Adverse effect of drug, initial encounter- Primary Allergy to penicillin Personal history of allergy to penicillin [facility] Diagnosis 16 weeks gestation of ([facility])- Primary state, incidental Supervision of high risk in second trimester ([facility]) Unspecified high-risk UTI (urinary tract infection) in , antepartum ([facility]) Infections of genitourinary tract antepartum Tachycardia Tachycardia, unspecified Supervision of high risk in third trimester ([facility])- Primary Unspecified high-risk 28 weeks gestation of ([facility]) state, incidental documented in this encounter [facility] note* Diagnosis 16 weeks gestation of ([facility])- Primary state, incidental Supervision of high risk in second trimester ([facility]) Unspecified high-risk UTI (urinary tract infection) in , antepartum ([facility]) Infections of genitourinary tract antepartum Tachycardia Tachycardia, unspecified Gestational diabetes mellitus (GDM) in third trimester, gestational diabetes method of control unspecified ([facility])- Primary documented in this encounter [facility] note* Diagnosis 16 weeks gestation of ([facility])- Primary state, incidental Supervision of high risk in second trimester ([facility]) Unspecified high-risk UTI (urinary tract infection) in , antepartum ([facility]) Infections of genitourinary tract antepartum Tachycardia Tachycardia, unspecified Hypothyroidism, unspecified type documented in this encounter [facility] note* Diagnosis 16 weeks gestation of ([facility])- Primary state, incidental Supervision of high risk in second trimester ([facility]) Unspecified high-risk UTI (urinary tract infection) in , antepartum ([facility]) Infections of genitourinary tract antepartum Tachycardia Tachycardia, unspecified Supervision of high risk in third trimester ([facility])- Primary Unspecified high-risk 30 weeks gestation of ([facility]) state, incidental Hypothyroidism, unspecified type Tachycardia Tachycardia, unspecified Penicillin allergy Personal history of allergy to penicillin UTI (urinary tract infection) in , antepartum ([facility]) Infections of genitourinary tract antepartum Diet controlled gestational diabetes mellitus (GDM) in third trimester ([facility]) Abnormal ultrasound Abnormal findings on screening documented in this encounter [facility] note* Diagnosis Onset Date Resolution Status Admit Date Inappropriate sinus tachycardia acut e January 26, 2025 2:36pm [place] [employer] Work Phone: Evaluation note* Diagnosis 16 weeks gestation of ([facility])- Primary state, incidental Supervision of high risk in second trimester ([facility]) Unspecified high-risk UTI (urinary tract infection) in , antepartum ([facility]) Infections of genitourinary tract antepartum Tachycardia Tachycardia, unspecified Supervision of high risk in third trimester ([facility])- Primary Unspecified high-risk Diet controlled gestational diabetes mellitus (GDM) in third trimester ([facility]) documented in this encounter [facility] note* Diagnosis 16 weeks gestation of ([facility])- Primary state, incidental Supervision of high risk in second trimester ([facility]) Unspecified high-risk UTI (urinary tract infection) in , antepartum ([facility]) Infections of genitourinary tract antepartum Tachycardia Tachycardia, unspecified Diet controlled gestational diabetes mellitus (GDM) in third trimester ([facility])- Primary Gestational diabetes mellitus (GDM) in third trimester, gestational diabetes method of control unspecified ([facility]) documented in this encounter [facility] note* Diagnosis 16 weeks gestation of (HCC)- Primary state, incidental Supervision of high risk in second trimester ([facility]) Unspecified high-risk UTI (urinary tract infection) in , antepartum ([facility]) Infections of genitourinary tract antepartum Tachycardia Tachycardia, unspecified Dietary counseling- Primary Dietary surveillance and counseling Gestational diabetes mellitus (GDM) in third trimester, gestational diabetes method of control unspecified ([facility]) documented in this encounter [facility] note* Diagnosis 16 weeks gestation of ([facility])- Primary state, incidental Supervision of high risk in second trimester ([facility]) Unspecified high-risk UTI (urinary tract infection) in , antepartum ([facility]) Infections of genitourinary tract antepartum Tachycardia Tachycardia, unspecified Supervision of high risk in third trimester ([facility])- Primary Unspecified high-risk Diet controlled gestational diabetes mellitus (GDM) in third trimester ([facility]) Hypothyroidism, unspecified type Penicillin allergy Personal history of allergy to penicillin 35 weeks gestation of ([facility]) state, incidental documented in this encounter [facility] note* Diagnosis 16 weeks gestation of ([facility])- Primary state, incidental Supervision of high risk in second trimester ([facility]) Unspecified high-risk UTI (urinary tract infection) in , antepartum ([facility]) Infections of genitourinary tract antepartum Tachycardia Tachycardia, unspecified Adverse effect of drug, subsequent encounter- Primary Allergy to penicillin Personal history of allergy to penicillin documented in this encounter [facility] note* Diagnosis 16 weeks gestation of ([facility])- Primary state, incidental Supervision of high risk in second trimester ([facility]) Unspecified high-risk UTI (urinary tract infection) in , antepartum ([facility]) Infections of genitourinary tract antepartum Tachycardia Tachycardia, unspecified Supervision of high risk in third trimester ([facility])- Primary Unspecified high-risk Diet controlled gestational diabetes mellitus (GDM) in third trimester ([facility]) Hypothyroidism, unspecified type * Assessment & Plan Note - Albert Swift MD - 03/03/2025 2:49 PM EDT Associated Problem(s): Diet controlled gestational diabetes mellitus (GDM) in third trimester ([facility]) US today, final report pending. BS log reviewed, excellent control Orders: URINE OB DIP B/O documented in this encounter [facility] note* Diagnosis 16 weeks gestation of (HCC)- Primary state, incidental Supervision of high risk in second trimester ([facility]) Unspecified high-risk UTI (urinary tract infection) in , antepartum ([facility]) Infections of genitourinary tract antepartum Tachycardia Tachycardia, unspecified Diet controlled gestational diabetes mellitus (GDM) in third trimester ([facility])- Primary with uncertain dates, antepartum ([facility]) state, incidental Supervision of high risk in third trimester ([facility])- Primary Unspecified high-risk Diet controlled gestational diabetes mellitus (GDM) in third trimester ([facility]) Hypothyroidism, unspecified type documented in this encounter [facility] note* Diagnosis 16 weeks gestation of ([facility])- Primary state, incidental Supervision of high risk in second trimester ([facility]) Unspecified high-risk UTI (urinary tract infection) in , antepartum ([facility]) Infections of genitourinary tract antepartum Tachycardia Tachycardia, unspecified Elevated glucose- Primary Other abnormal glucose Supervision of high risk in third trimester ([facility])- Primary Unspecified high-risk Diet controlled gestational diabetes mellitus (GDM) in third trimester ([facility]) Hypothyroidism, unspecified type documented in this encounter [facility] note* Diagnosis 16 weeks gestation of ([facility])- Primary state, incidental Supervision of high risk in second trimester ([facility]) Unspecified high-risk UTI (urinary tract infection) in , antepartum ([facility]) Infections of genitourinary tract antepartum Tachycardia Tachycardia, unspecified Supervision of high risk in third trimester ([facility])- Primary Unspecified high-risk Diet controlled gestational diabetes mellitus (GDM) in third trimester ([facility]) Hypothyroidism, unspecified type Supervision of high risk in third trimester ([facility])- Primary Unspecified high-risk 37 weeks gestation of ([facility]) state, incidental Diet controlled gestational diabetes mellitus (GDM) in third trimester ([facility]) Hypothyroidism, unspecified type documented in this encounter [facility] note* Diagnosis 16 weeks gestation of ([facility])- Primary state, incidental Supervision of high risk in second trimester (HCC) Unspecified high-risk UTI (urinary tract infection) in , antepartum (HCC) Infections of genitourinary tract antepartum Tachycardia Tachycardia, unspecified Supervision of high risk in third trimester (HCC)- Primary Unspecified high-risk Diet controlled gestational diabetes mellitus (GDM) in third trimester (HCC) Hypothyroidism, unspecified type Diet controlled gestational diabetes mellitus (GDM) in third trimester (HCC)- Primary 39 weeks gestation of ([facility]) state, incidental Group B Streptococcus carrier, antepartum (HCC) Other current maternal conditions classifiable elsewhere, antepartum Supervision of high risk in third trimester (HCC) Unspecified high-risk [facility] (narrative)No reason for referral information availableSt. Vincent [facility] Work Phone: Reason for Referral Specialty Diagnoses / Procedures Referred By Yazan barger Referred To Contact Endocrinology Diagnoses Hypothyroidism, unspecified type Procedures CONSULT TO ENDOCRINOLOGY OFFICE[facility]UTES Lidia Raza APRN.CNM [address] [place] [address] Referral ID Status Reason Start Date Expiration Date Visits Requested Visits Authorized [id number] Authorized PCP Requested Referral 09/15/2024 09/15/2025 1 1 Specialty Diagnoses / Procedures Referred By Yazan barger Referred To Contact [facility] Diagnoses with uncertain dates, antepartum Procedures OBSTETRIC ULTRASOUND WHI US PREG UTERUS AFTER 1ST TRIMEST 1 GESTATION Lidia Raza APRN.CNM [address] [place] [address] [facility] [address] [place] [id number] Referral ID Status Reason Start Date Expiration Date Visits Requested Visits Authorized [id number] Authorized Auto-Generat ed Referral 09/15/2024 09/15/2025 1 1 Referral ID Status Reason Start Date Expiration Date Visits Requested Visits Authorized [id number] Authorized Auto-Generat ed Referral 09/15/2024 09/15/2025 1 1 Summary Purpose Family History Relationship Condition Age at Onset Recorded Date/T connor sister Cardiac disease Unknown Advance Directives No Advanced Directives Records FoundNo Advanced Directives Records FoundNo Advanced Directives Records Found Chief Complaint and Reason for Visit Chief Complaint Admit Date 4 M FU January 26, 2025 2:36 pm Reason for Visit Admit Date Inappropriate sinus tachycardia January 2:36pm Additional Source Comments Source Comments (unrecognize d section and content) In the event this informatio n is protected by the Federal Confidentiality of Alcohol and Drug Abuse Patient Records regulations: The Federal rules restrict any use of the information to criminally investigate or prosecute any alcohol or drug abuse patient.[facility] the event this information is protected by the Federal Confidentiality of Alcohol and Drug Abuse Patient Records regulations: The Federal rules restrict any use of the information to criminally investigate or prosecute any alcohol or drug abuse patient.[facility] the event this information is protected by the Federal Confidentiality of Alcohol and Drug Abuse Patient Records regulations: The Federal rules restrict any use of the information to criminally investigate or prosecute any alcohol or drug abuse patient.[facility] the event this information is protected by the Federal Confidentiality of Alcohol and Drug Abuse Patient Records regulations: The Federal rules restrict any use of the information to criminally investigate or prosecute any alcohol or drug abuse patient.[facility] Center[facility] the event this information is protected by the Federal Confidentiality of Alcohol and Drug Abuse Patient Records regulations: The Federal rules restrict any use of the information to criminally investigate or prosecute any alcohol or drug abuse patient.[facility] Center[facility] the event this information is protected by the Federal Confidentiality of Alcohol and Drug Abuse Patient Records regulations: The Federal rules restrict any use of the information to criminally investigate or prosecute any alcohol or drug abuse patient.[facility] Center[facility] the event this information is protected by the Federal Confidentiality of Alcohol and Drug Abuse Patient Records regulations: The Federal rules restrict any use of the information to criminally investigate or prosecute any alcohol or drug abuse patient.[facility] Center[facility] the event this information is protected by the Federal Confidentiality of Alcohol and Drug Abuse Patient Records regulations: The Federal rules restrict any use of the information to criminally investigate or prosecute any alcohol or drug abuse patient.[facility] Center[facility] the event this information is protected by the Federal Confidentiality of Alcohol and Drug Abuse Patient Records regulations: The Federal rules restrict any use of the information to criminally investigate or prosecute any alcohol or drug abuse patient.[facility] Center[facility] the event this information is protected by the Federal Confidentiality of Alcohol and Drug Abuse Patient Records regulations: The Federal rules restrict any use of the information to criminally investigate or prosecute any alcohol or drug abuse patient.[facility] Center[facility] the event this information is protected by the Federal Confidentiality of Alcohol and Drug Abuse Patient Records regulations: The Federal rules restrict any use of the information to criminally investigate or prosecute any alcohol or drug abuse patient.[facility] Center[facility] the event this information is protected by the Federal Confidentiality of Alcohol and Drug Abuse Patient Records regulations: The Federal rules restrict any use of the information to criminally investigate or prosecute any alcohol or drug abuse patient.[facility] Center[facility] the event this information is protected by the Federal Confidentiality of Alcohol and Drug Abuse Patient Records regulations: The Federal rules restrict any use of the information to criminally investigate or prosecute any alcohol or drug abuse patient.[facility] Center[facility] the event this information is protected by the Federal Confidentiality of Alcohol and Drug Abuse Patient Records regulations: The Federal rules restrict any use of the information to criminally investigate or prosecute any alcohol or drug abuse patient.[facility] Center[facility] the event this information is protected by the Federal Confidentiality of Alcohol and Drug Abuse Patient Records regulations: The Federal rules restrict any use of the information to criminally investigate or prosecute any alcohol or drug abuse patient.[facility] CenterIn the event this information is protected by the Federal Confidentiality of Alcohol and Drug Abuse Patient Records regulations: The Federal rules restrict any use of the information to criminally investigate or prosecute any alcohol or drug abuse patient.[facility] CenterIn the event this information is protected by the Federal Confidentiality of Alcohol and Drug Abuse Patient Records regulations: The Federal rules restrict any use of the information to criminally investigate or prosecute any alcohol or drug abuse patient.[facility] CenterIn the event this information is protected by the Federal Confidentiality of Alcohol and Drug Abuse Patient Records regulations: The Federal rules restrict any use of the information to criminally investigate or prosecute any alcohol or drug abuse patient.[facility] CenterIn the event this information is protected by the Federal Confidentiality of Alcohol and Drug Abuse Patient Records regulations: The Federal rules restrict any use of the information to criminally investigate or prosecute any alcohol or drug abuse patient.[facility] CenterIn the event this information is protected by the Federal Confidentiality of Alcohol and Drug Abuse Patient Records regulations: The Federal rules restrict any use of the information to criminally investigate or prosecute any alcohol or drug abuse patient.[facility] CenterIn the event this information is protected by the Federal Confidentiality of Alcohol and Drug Abuse Patient Records regulations: The Federal rules restrict any use of the information to criminally investigate or prosecute any alcohol or drug abuse patient.[facility] CenterIn the event this information is protected by the Federal Confidentiality of Alcohol and Drug Abuse Patient Records regulations: The Federal rules restrict any use of the information to criminally investigate or prosecute any alcohol or drug abuse patient.[facility] CenterIn the event this information is protected by the Federal Confidentiality of Alcohol and Drug Abuse Patient Records regulations: The Federal rules restrict any use of the information to criminally investigate or prosecute any alcohol or drug abuse patient.[facility] CenterIn the event this information is protected by the Federal Confidentiality of Alcohol and Drug Abuse Patient Records regulations: The Federal rules restrict any use of the information to criminally investigate or prosecute any alcohol or drug abuse patient.[facility] CenterIn the event this information is protected by the Federal Confidentiality of Alcohol and Drug Abuse Patient Records regulations: The Federal rules restrict any use of the information to criminally investigate or prosecute any alcohol or drug abuse patient.[facility] CenterIn the event this information is protected by the Federal Confidentiality of Alcohol and Drug Abuse Patient Records regulations: The Federal rules restrict any use of the information to criminally investigate or prosecute any alcohol or drug abuse patient.[facility] CenterIn the event this information is protected by the Federal Confidentiality of Alcohol and Drug Abuse Patient Records regulations: The Federal rules restrict any use of the information to criminally investigate or prosecute any alcohol or drug abuse patient.[facility] CenterIn the event this information is protected by the Federal Confidentiality of Alcohol and Drug Abuse Patient Records regulations: The Federal rules restrict any use of the information to criminally investigate or prosecute any alcohol or drug abuse patient.[facility] CenterIn the event this information is protected by the Federal Confidentiality of Alcohol and Drug Abuse Patient Records regulations: The Federal rules restrict any use of the information to criminally investigate or prosecute any alcohol or drug abuse patient.[facility] CenterIn the event this information is protected by the Federal Confidentiality of Alcohol and Drug Abuse Patient Records regulations: The Federal rules restrict any use of the information to criminally investigate or prosecute any alcohol or drug abuse patient.[facility] CenterIn the event this information is protected by the Federal Confidentiality of Alcohol and Drug Abuse Patient Records regulations: The Federal rules restrict any use of the information to criminally investigate or prosecute any alcohol or drug abuse patient.[facility] CenterIn the event this information is protected by the Federal Confidentiality of Alcohol and Drug Abuse Patient Records regulations: The Federal rules restrict any use of the information to criminally investigate or prosecute any alcohol or drug abuse patient.[facility] CenterIn the event this information is protected by the Federal Confidentiality of Alcohol and Drug Abuse Patient Records regulations: The Federal rules restrict any use of the information to criminally investigate or prosecute any alcohol or drug abuse patient.[facility] CenterIn the event this information is protected by the Federal Confidentiality of Alcohol and Drug Abuse Patient Records regulations: The Federal rules restrict any use of the information to criminally investigate or prosecute any alcohol or drug abuse patient.[facility] CenterIn the event this information is protected by the Federal Confidentiality of Alcohol and Drug Abuse Patient Records regulations: The Federal rules restrict any use of the information to criminally investigate or prosecute any alcohol or drug abuse patient.[facility] CenterIn the event this information is protected by the Federal Confidentiality of Alcohol and Drug Abuse Patient Records regulations: The Federal rules restrict any use of the information to criminally investigate or prosecute any alcohol or drug abuse patient.[facility] CenterIn the event this information is protected by the Federal Confidentiality of Alcohol and Drug Abuse Patient Records regulations: The Federal rules restrict any use of the information to criminally investigate or prosecute any alcohol or drug abuse patient.[facility] CenterIn the event this information is protected by the Federal Confidentiality of Alcohol and Drug Abuse Patient Records regulations: The Federal rules restrict any use of the information to criminally investigate or prosecute any alcohol or drug abuse patient.[facility] CenterIn the event this information is protected by the Federal Confidentiality of Alcohol and Drug Abuse Patient Records regulations: The Federal rules restrict any use of the information to criminally investigate or prosecute any alcohol or drug abuse patient.[facility] CenterIn the event this information is protected by the Federal Confidentiality of Alcohol and Drug Abuse Patient Records regulations: The Federal rules restrict any use of the information to criminally investigate or prosecute any alcohol or drug abuse patient.[facility] CenterIn the event this information is protected by the Federal Confidentiality of Alcohol and Drug Abuse Patient Records regulations: The Federal rules restrict any use of the information to criminally investigate or prosecute any alcohol or drug abuse patient.[facility] CenterIn the event this information is protected by the Federal Confidentiality of Alcohol and Drug Abuse Patient Records regulations: The Federal rules restrict any use of the information to criminally investigate or prosecute any alcohol or drug abuse patient.[facility] Reason for Visit (unrecogniz ed section and content) Reason Comments Complex Family Planning Reason Comments Received Outside Medical Records Reason Comments Patient Question Reason Comments PRAF Reason Comments Initial OB Visit Reason Comments Cardiology appointment Reason Comments Patient Update Reason Comments F/U ER visit Reason Comments Care Reason Onset Date Comments Care 10/14/2024 Reason Comments Follow Up Reason Comments Patient Request Reason Comments Orders Reason Comments Anatomy US Results Reason Comments OB vomiting Reason Onset Date Comments Care 12/20/2024 Reason Comments US Specialty Diagnoses / Procedures Referred By Contac t Referred To Contact [facility] Diagnoses Encounter for anatomic survey (HCC) Procedures OBSTETRIC ULTRASOUND WHI US PREG UTERUS AFTER 1ST TRIMEST GESTATION Albert Swift MD [address] [place] [address] Phone: tel: fax: [facility] [address] [place] [address] Referral ID Status Reason Start Date Expiration Date V isits Requested Visits Authorized [id number] Closed Auto-Generate d Referral 11/17/2024 11/16/2025 1 1 Reason Comments Drug Allergy Reason Onset Date Comments Care 01/04/2025 Reason Comments Results 3 hour glucose Reason Comments Abnormal thyroid labs during Specialty Diagnoses / Procedures Referred By Contac t Referred To Contact Endocrinology Diagnoses Hypothyroidism, unspecified type Procedures CONSULT TO ENDOCRINOLOGY OFFICE/OUTPATIENT [facility] 60 MINUTES Lidia Raza APRN.CNShania [address] [place] [address] Phone: tel: fax:[phone] Referral ID Status Reason Start Date Expiration Date V isits Requested Visits Authorized [id number] Closed PCP Requested Referral 09/15/2024 09/15/2025 1 1 Reason Onset Date Comments Care 01/20/2025 Reason Onset Date Comments Care 02/02/2025 Specialty Diagnoses / Procedures Referred By Contac t Referred To Contact [facility] Diagnoses Gestational diabetes mellitus (GDM) in third trimester, gestational diabetes method of control unspecified (HCC) Procedures OBSTETRIC ULTRASOUND WHI US PREG UTERUS AFTER 1ST TRIMEST GESTATION Carolyn Richmond APRN.ESTELAM [address] [place] [address] Phone: tel: fax:[phone] [address] Referral ID Status Reason Start Date Expiration Date V isits Requested Visits Authorized [id number] Closed Auto-Generate d Referral 01/18/2025 01/18/2026 5 1 Reason Comments Assessment Patient Education Specialty Diagnoses / Procedures Referred By Contac t Referred To Contact Nutrition Diagnoses Gestational diabetes mellitus (GDM) in third trimester, gestational diabetes method of control unspecified (HCC) Procedures CONSULT TO NUTRITION THERAPY MEDICAL NUTRITION ASSMT&IVNTJ INDIV EACH 15 AR Carolyn Richmond APRN.MIRIAM [address] [place] [address] Phone: tel: fax:[phone] Referral ID Status Reason Start Date Expiration Date Visits Requested Visits Authorized [id number] Authorized PCP Requested Referral 01/18/2025 01/18/2026 1 4 Reason Onset Date Comments Care 02/25/2025 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 Diagnoses with uncertain dates, antepartum (HCC) Procedures OBSTETRIC ULTRASOUND WHI US PREG UTERUS AFTER 1ST TRIMEST GESTATION Lidia Raza APRN.MIRIAM [address] [place] [address] Phone: tel: fax:[phone] [address] Referral ID Status Reason Start Date Expiration Date V isits Requested Visits Authorized [id number] Closed Auto-Generate d Referral 09/15/2024 09/15/2025 1 1 Reason Onset Date Comments Population Health Navigation Outreach 03/15/2025 to PCP/OB Reason Onset Date Comments Care 03/11/2025 Reason Onset Date Comments Care 03/24/2025 Care Teams (unrecognized sec tion and content) Cad Intern Relationship Specialty Start Date End Date Doretha, Lidia, SEISMOGRAPH RECORDER [address] [place] [address] Family Medicine 09/15/24 Cad Intern Relationship Specialty Start Date End Date Lidia oCyne NP [address] [place] [address] Family Medicine 09/15/24 Cad Intern Relationship Specialty Start Date End Date Lidia Coyne NP [address] [place] [address] Family Medicine 09/15/24 Cad Intern Relationship Specialty Start Date End Date Lidia Coyne NP [address] [place] [address] Family Medicine 09/15/24 Cad Intern Relationship Specialty Start Date End Date Lidia Coyne NP [address] [place] [address] Family Medicine 09/15/24 Cad Intern Relationship Specialty Start Date End Date Lidia Coyne NP [address] [place] [address] Family Medicine 09/15/24 Cad Intern Relationship Specialty Start Date End Date Lidia Coyne NP [address] [place] [address] Family Medicine 09/15/24 Cad Intern Relationship Specialty Start Date End Date Lidia Coyne NP [address] [place] [address] Family Medicine 09/15/24 Cad Intern Relationship Specialty Start Date End Date Lidia Coyne NP [address] [place] [address] Family Medicine 09/15/24 Cad Intern Relationship Specialty Start Date End Date Lidia Coyne NP [address] [place] [address] Family Medicine 09/15/24 Cad Intern Relationship Specialty Start Date End Date Lidia Coyne NP [address] [place] [address] Family Medicine 09/15/24 Cad Intern Relationship Specialty Start Date End Date Lidia Coyne NP [address] [place] [address] Family Medicine 09/15/24 Cad Intern Relationship Specialty Start Date End Date Lidia Coyne NP [address] [place] [address] Family Medicine 09/15/24 Cad Intern Relationship Specialty Start Date End Date Lidia Coyne NP [address] [place] [address] Family Medicine 09/15/24 Cad Intern Relationship Specialty Start Date End Date Lidia Coyne NP [address] [place] [address] Family Medicine 09/15/24 Cad Intern Relationship Specialty Start Date End Date Lidia Coyne NP [address] [place] [address] Family Medicine 09/15/24 Cad Intern Relationship Specialty Start Date End Date Lidia Coyne NP [address] [place] [address] Family Medicine 09/15/24 Cad Intern Relationship Specialty Start Date End Date DorethaLidia SEISMOGRAPH RECORDER [address] [place] [address] Family [facility] 09/15/24 Cad Intern Relationship Specialty Start Date End Date DorethaLidia SEISMOGRAPH RECORDER [address] [place] [address] Family Medicine 09/15/24 Cad Intern Relationship Specialty Start Date End Date DorethaLidia SEISMOGRAPH RECORDER [address] [place] [address] Family [facility] 09/15/24 Cad Intern Relationship Specialty Start Date End Date DorethaShantellLidia, SEISMOGRAPH RECORDER [address] [place] [address] Family [facility] 09/15/24 Team Status: Active Member Role Status Dates Lidia Coyne VSC, SEISMOGRAPH RECORDER-C Primary Care Provider Activ e Team Status: Inactive Member Role Status Dates Lidia Coyne VSC, SEISMOGRAPH RECORDER-C Primary Care Provider Activ e Start: January 26, 2025 End: January 26, 2025 Lidia Coyne VSC, SEISMOGRAPH RECORDER-C Referring Provider Active Start: January 26, 2025 End: January 26, 2025 GOLDY Finley Attending Provider Active St art: January 26, 2025 End: January 26, 2025 Cad Intern Relationship Specialty Start Date End Date Doretha BRIDGET Murillo [address] [place] [address] Family Medicine 09/15/24 Cad Intern Relationship Specialty Start Date End Date Lidia Coyne NP [address] [place] [address] Family Medicine 09/15/24 Cad Intern Relationship Specialty Start Date End Date Lidia Coyne SEISMOGRAPH RECORDER [address] [place] [address] Family [facility] 09/15/24 Cad Intern Relationship Specialty Start Date End Date Lidia Coyne NP [address] [place] [address] Family Medicine 09/15/24 Cad Intern Relationship Specialty Start Date End Date Lidia Coyne NP [address] [place] [address] Family [facility] 09/15/24 Cad Intern Relationship Specialty Start Date End Date Lidia Coyne NP [address] [place] [address] [facility] 09/15/24 Cad Intern Relationship Specialty Start Date End Date Lidia Coyne NP [address] [place] [address] [facility] 09/15/24 Cad Intern Relationship Specialty Start Date End Date Lidia Coyne NP [address] [place] [address] [facility] 09/15/24 INFORMATION SOURCE (unrecogn ized section and content) DATE CREATED AUTHOR 01/15/2025 Dany Duong [facility] DATE CREATED AUTHOR AUTHOR'S ORGANIZ ATION 02/04/2025 [facility] DATE CREATED AUTHOR AUTHOR'S ORGANIZ ATION 03/20/2025 [facility] Goals (unrecognized section and content) Goals may be documented in a n alternate section FOR RECORDS PERTAINING TO PATIENTS WHO ARE OR HAVE BEEN ENROLLED IN A CHEMICAL DEPENDENCY/SUBSTANCEABUSE PROGRAM, SOME INFORMATION MAY BE OMITTED. This clinical summary was aggregated from multiple sources. Caution should be exercised in using it in the provision of clinical care. This summary normalizes information from multiple sources, and as a consequence, information in this document may materially change the coding, format and clinical context of patient data. In addition, data may be omitted in some cases. CLINICAL DECISIONS SHOULD BE BASED ON THE PRIMARY CLINICAL RECORDS. [facility] [employer] [facility]. provides no warranty or guarantee of the accuracy or completeness of information in this document.
--- OUTSIDE RECORDS SUMMARY | 2025-03-26 09:31 | XMS RPT_ITS | CCD ---
Author Organization [facility] Care Team Providers Care Packer Dried Beef Name Role Phone Unavailable Primary Care Provider Unavailabl e Doretha TECHNICIAN INVENTORY SPECIALISTShantellLidia Unavailable DORETHA LIDIA TECHNICIAN INVENTORY SPECIALIST%C Consulting Unavailab CAROLYN Gabmino CNM Admitting Unavailable CAROLYN RICHMOND CNM Attending Unavailable CAROLYN RICHMOND CNM Primary Care Unavailable PROVIDER, UNKNOWN Consulting Unavailable DORETHA LIDIA TECHNICIAN INVENTORY SPECIALIST%C Referring Unavailab le CSERNYNICOLASA BEAUCHAMP DO Admitting Unavailable CSERNICOLASA CALLE DO Attending Unavailable JONATHONRASTRID CALLEIC DO Primary Care Unavailable DORETHA LIDIA TECHNICIAN INVENTORY SPECIALIST%C Consulting Unavailab le PROVIDER, UNKNOWN Consulting Unavailable ADRIENEN FUNEZ MD Admitting Unavailabl ADRIENNE Chiang MD Attending UnavailADRIENNE Field MD Primary Care Unavailabl e BARRY LARRY MD Admitting Unavailable BARRY LARRY MD Attending Unavailable BARRY LARRY MD Primary Care Unavailable DORETHA LIDIA TECHNICIAN INVENTORY SPECIALIST%C Consulting Unavailab le PROVIDER, UNKNOWN Consulting Unavailable LIDIA RAZA CNM Admitting Unavailable LIDIA RAZA CNM Attending Unavailable LIDIA RAZA CNM Primary Care Unavailable DORETHA LIDIA TECHNICIAN INVENTORY SPECIALIST%C Consulting Unavailab le PROVIDER, UNKNOWN Consulting Unavailable JAMISON ALBERT L Admitting Unavailable ALBERT SWIFT L Attending Unavailable JAMISON ALBERT L Primary Care Unavailable DORETHA, LIDIA TECHNICIAN INVENTORY SPECIALIST%C Consulting Unavailab le PROVIDER, UNKNOWN Consulting Unavailable DORETHA LIDIA TECHNICIAN INVENTORY SPECIALIST%C Primary Care Unavailab le DORETHA, LIDIA TECHNICIAN INVENTORY SPECIALIST%C Admitting Unavailab le DORETHA LIDIA TECHNICIAN INVENTORY SPECIALIST%C Attending Unavailab LIDIA Ham CNM Admitting Unavailable LIDIA RAZA CNM Attending Unavailable LIDIA RAZA CNM Primary Care Unavailable DORETHA, LIDIA TECHNICIAN INVENTORY SPECIALIST%C Consulting Unavailab le PROVIDER, UNKNOWN Consulting Unavailable Doretha TECHNICIAN INVENTORY SPECIALIST-C, Lidia Primary Care Provider Dorteha TECHNICIAN INVENTORY SPECIALIST-C, Lidia Referring Provider Tr Rendon Attending Provider Doretha VSC, Lidia Referring Unavailabl e Doretha VSC, Lidia Primary Care Unavailabl e Laron, Barry Attending Unavailable Doretha VSC, Lidia Referring Unavailabl e Doretha VSC, Lidia Attending Unavailabl e Doretha VSC, Lidia Primary Care Unavailabl e Doretha VSC, Lidia Primary Care Unavailabl e Laron, Hayti Referring Unavailable Laron, Barry Attending Unavailable Doretha [...] Translations: [AMOXICILLIN] Drug Allergy 5 GI Upset [facility] (20 sources) H Papillomavirus Vac,Qval (Pf); Translations: [H PAPILLOMAVIRUS VAC,QVAL (PF)] Drug Allergy 5 Other: See Comments [facility] (1 source) Penicillin Drug Allergy [facility] Repository (1 source) raNITIdine Drug Allergy 5 PT UNSURE OF REACTION [facility] (1 source) Amoxicillin Drug Allergy 5 [facility] Repository (1 source) raNITIdine Drug Allergy 5 [facility] Repository Medications Current Medications Medication Drug [...] 09-01-2024 take 1 tablet by mouth once MD ENATAL VITAMIN 27 mg iron- 0.8 mg [...] [Supervision of high risk in second trimester ([facility])] Onset: 12-20-2024 Episodic Other complications of (1 source) Supervision of with insufficient care, unspecified trimester; Translations: [Late care affecting , antepartum ([facility])] Onset: 12-20-2024 Episodic Other female genital [...] B/Oon Glucose Ql (U) Negative Neg mg/dL [facility] Interpretation and review of laboratory results Normal [facility] Protein.monoclonal (U) [Mass/Vol] Negative Neg mg/dL [facility] ROUTINE, GROUP B ST REPTOCOCCUS BY PCRon 03-13-2025 Interpretation and review of laboratory results Abnormal [facility] S. agalactiae DNA DILIP+probe Ql (Unsp spec) Detected Abnormal Not detected [facility] If susceptibility testing is needed and was not requested with initial test order, call lab ([facility] micro is [phone]) within 5 days to initiate workup. This PCR is performed on a vaginal-rectal swab after culture enrichment. It is the most sensitive method for Group B Streptococcus screening. (Obstet Gynecol. 2020 PMID [id number]) [facility] ROUTINE, GROUP B ST REPTOCOCCUS BY PCRon 03-11-2025 ROUTINE, GROUP B STREPTOCOCCUS BY PCR Detected Abnormal [facility] Comment on above: Performed By: #### G BPCR ####[facility] LABCLIA [id number] [place] [address] [place] URINE OB DIP B/Oon Glucose Ql (U) Negative Neg mg/dL [facility] Interpretation and review of laboratory results Normal [facility] Protein.monoclonal (U) [Mass/Vol] trace Neg mg/dL [facility] Examination level ultrasound on 03-04-2025 [facility] Examination level ultrasound on 03-03-2025 Radiology Study observation (narrative) [facility] T4 Free SerPl-mCncon 025 Free T4 [Mass/Vol] 1.1 ng/dL Normal 0.9-1.7 [facility] Comment on above: Order Comment: Speci men Type: BLOOD SPECIMENOrdering Facility: Address: [address] [place] [address] Performed By: #### 3 024-7, 3016-3 ####[facility] LABIA [id number] [place] [address] [place] TSH SerPl-aCncon 03-03-2025 TSH Qn 1.110 m[IU]/L Normal 0.270-4.200 [facility] Comment on above: Order Comment: Speci men Type: BLOOD SPECIMENOrdering Facility: Address: [address] [place] [address] Result Comment: If t he patient is , TSH reference range varies by gestational period: First Trimester (weeks 9-12): 0.180-2.990 mIU/L Second Trimester: 0.110-3.980 mIU/L Third Trimester: 0.480-4.710 mIU/L Darrick Ramires et al. A Practical Approach for the Verifications and Determination of Site- and Trimester-Specific Reference Intervals for Thyroid Function tests in . Thyroid, 2019:29:3:412-420. William Campos, et al. 2017 Guidelines of the [place] Thyroid Association for the Diagnosis and Management of Thyroid Disease during and the . Thyroid, 2017:27:3:315-389. Performed By: #### 3 024-7, 3016-3 ####[facility] LABCLIA [id number] [place] [address] [place] URINE OB DIP B/Oon 5 Glucose Ql (U) Negative Neg mg/dL [facility] Protein.monoclonal (U) [Mass/Vol] trace Neg mg/dL [facility] CNOVon 03-02-2025 CNOV Office Visit (AAPENO ) -------- LÓPEZ BRAVO ([id number]) 4 F Date Time Provider Department 03/02/25 [...] = 0 mm PENICILLIN GK 10,000 UNITS/ML [facility]: [id number] LOT: [id number] Exp: 10/08/2025 P: W = 0 mm F = 0 mm ID: W = 0 mm F = 0 mm PREPEN -(benzy (more content not included)... Normal [facility] 02-28-2025 [facility] Telephone ([id number]) -------- LÓPEZ BRAVO ([id number]) 4 F Date Time Provider Department 02/28/25 LIZETH PATEL [id number] During your visit today, we recorded the [...] MD - Fully Assessed Reason for Visit: Wool Sacker - Other [3602] Cmt: PRAF Prescriptions as [...] Status:Closed by LIZETH PATEL on 02/28/25 Normal [facility] URINE OB DIP B/Oon Glucose Ql (U) Negative Neg mg/dL [facility] Interpretation and review of laboratory results Normal [facility] Protein.monoclonal (U) [Mass/Vol] Negative Neg mg/dL [facility] Examination level ultrasound on 02-03-2025 [facility] Examination level ultrasound on 02-02-2025 Radiology Study observation (narrative) [facility] Cardiology Visit Reporton Cardiology Visit Report [facility] 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 Normal [facility] Bacteria Ur Culton Bacteria identified Cx Nom (U) ORGANISM ID: 1 <10,000 CFU/ml Normal urogenital delores Normal [facility] Comment on above: Performed By: #### 6 30-4 ####[facility] LABCLIA [id number] [address] OF [facility] CNPMelida 01-18-2025 CNPN Telephone (OBGYWM) -------- LÓPEZ BRAVO ([id number]) 4 F Date Time Provider Department 01/18/25 CAROLYN RICHMOND During your visit today, we recorded the following information about you: Lizeth Gleason RN 01/18/2025 9:23 AM Signed Received 3 hour glucose results from [facility]. Orders pending for consults (for diabetes education and mushroom packer) and testing supplies. Patient sees Endo for hypothyroidism. [employer] message sent to patient. Lizeth Gleason RN Scan on 01/18/2025 9:02 AM by Provider, Niranjan, CYRUS: 3 hour glucose Carolyn Richmond APRN.CNM 01/18/2025 4:38 PM Signed Orders signed. Please assist with scheduling growth US. JONAH Donato Jennifer, RN 01/18/2025 4:46 PM Signed Appt note made for 01/20/25 if patient does not view [employer] message. Needs to schedule appointments. PREETI Cox Jennifer, RN 01/19/2025 2:59 PM Signed Patient called in to the office. She reviewed [employer] message. Transferred to [facility] to assist with scheduling. Lizeth Gleason RN [...] times daily.Disp: 200 eachRfl: 8 OBSTETRIC ULTRASOUND [facility] [[id number]] Order #: [id number]: 1 STANDING alcohol swabs (ALCOHOL PREP PADS)Use as directed to check glucose levels up to seven times daily.Disp: 200 eachRfl: 8 CONSULT TO DIABETES EDUCATION DSME [3207859] Order #: [id number]: 2 FUTURE CONSULT TO NUTRITION THERAPY [9020] Order #: [id number]: 4 FUTURE Prescriptions as of 01/19/2025 - [...] Status:Closed by CAROLYN RICHMOND on 01/18/25 Normal [facility] GLUCOSE TOLERANCE-3 HOURon 0 01-13-2025 GLUCOSE TOLERANCE-3 HOUR Normal [facility] Comment on above: Result Comment: 3 HO [...] _NA (NEGATIVE) 01/13/25.JLN. Performed By: #### 2 95623 ####[facility],[address] [place] [address] CBC W Auto Differential pane l (Bld)on 01-04-2025 Basophils (Bld) [#/Vol] 10*3/uL Normal <0.11 [facility] Comment on above: Order Comment: Speci men Type: BLOOD SPECIMENOrdering Facility: Address: [address] [place] [address] Performed By: #### 5 7021-8 ####[facility] [id number] [place] [address] [place] Basophils/100 WBC (Bld) 0.2 % Normal [facility] Comment on above: Order Comment: Speci men Type: BLOOD SPECIMENOrdering Facility: Address: [address] [place] [address] Performed By: #### 5 7021-8 ####[facility]ISALIA [id number] [place] [address] [place] Differential cell count method Nom (Bld) Auto Normal [facility] Comment on above: Order Comment: Speci men Type: BLOOD SPECIMENOrdering Facility: Address: [address] [place] [address] Performed By: #### 5 7021-8 ####[facility] [id number] [place] [address] [place] Eosinophils (Bld) [#/Vol] 10*3/uL Normal <0.46 [facility] Comment on above: Order Comment: Speci men Type: BLOOD SPECIMENOrdering Facility: Address: [address] [place] [address] Performed By: #### 5 7021-8 ####[facility] [id number] [place] [address] [place] Eosinophils/100 WBC (Bld) 0.2 % Normal [facility] Comment on above: Order Comment: Speci men Type: BLOOD SPECIMENOrdering Facility: Address: [address] [place] [address] Performed By: #### 5 7021-8 ####[facility]ENTERLIA [id number] [place] [address] [place] Erythrocyte distribution width (RBC) [Ratio] 13.4 % Normal 11.5-15.0 [facility] Comment on above: Order Comment: Speci men Type: BLOOD SPECIMENOrdering Facility: Address: [address] [place] [address] Performed By: #### 5 7021-8 ####[facility]ENTERLIA [id number] [place] [address] [place] Hematocrit (Bld) [Volume fraction] 36.9 % Normal 36.0-46.0 [facility] Comment on above: Order Comment: Speci men Type: BLOOD SPECIMENOrdering Facility: Address: [address] [place] [address] Performed By: #### 5 7021-8 ####[facility]ENTERLIA [id number] [place] [address] [place] Hemoglobin (Bld) [Mass/Vol] 12.4 g/dL Normal 11.5-15.5 [facility] Comment on above: Order Comment: Speci men Type: BLOOD SPECIMENOrdering Facility: Address: [address] [place] [address] Performed By: #### 5 7021-8 ####[facility] [id number] [place] [address] [place] Immature granulocytes (Bld) [#/Vol] 0.05 10*3/uL Normal <0.10 [facility] Comment on above: Order Comment: Speci men Type: BLOOD SPECIMENOrdering Facility: Address: [address] [place] [address] Performed By: #### 5 7021-8 ####[facility]LIA [id number] [place] [address] [place] Immature granulocytes/100 WBC (Bld) 0.5 % Normal [facility] Comment on above: Order Comment: Speci men Type: BLOOD SPECIMENOrdering Facility: Address: [address] [place] [address] Performed By: #### 5 7021-8 ####[facility]CL[facility] [id number] [place] [address] [place] Lymphocytes (Bld) [#/Vol] 1.29 10*3/uL Normal 1.00-4.00 [facility] Comment on above: Order Comment: Speci men Type: BLOOD SPECIMENOrdering Facility: Address: [address] [place] [address] Performed By: #### 5 7021-8 ####[facility] [id number] [address] [place] Lymphocytes/100 WBC (Bld) 12.0 % Normal [facility] Comment on above: Order Comment: Speci men Type: BLOOD SPECIMENOrdering Facility: Address: [address] [place] [address] Performed By: #### 5 7021-8 ####[facility] [id number] [place] [address] [place] MCH (RBC) [Entitic mass] 32.6 pg Normal 26.0-34.0 [facility] Comment on above: Order Comment: Speci men Type: BLOOD SPECIMENOrdering Facility: Address: [address] [place] [address] Performed By: #### 5 7021-8 ####[facility] [id number] [place] [address] [place] MCHC (RBC) [Mass/Vol] 33.6 g/dL Normal 30.5-36.0 [facility] Comment on above: Order Comment: Speci men Type: BLOOD SPECIMENOrdering Facility: Address: [address] [place] [address] Performed By: #### 5 7021-8 ####[facility]ITALNCLI [id number] [place] [address] [place] MCV (RBC) [Entitic vol] 97.1 fL Normal 80.0-100.0 [facility] Comment on above: Order Comment: Speci men Type: BLOOD SPECIMENOrdering Facility: Address: [address] [place] [address] Performed By: #### 5 7021-8 ####[facility] ROSANGELAMARQUIS [id number] [place] [address] [place] Monocytes (Bld) [#/Vol] 0.30 10*3/uL Normal <0.87 [facility] Comment on above: Order Comment: Speci men Type: BLOOD SPECIMENOrdering Facility: Address: [address] [place] [address] Performed By: #### 5 7021-8 ####[facility]ITALELISAA [id number] [place] [address] [place] Monocytes/100 WBC (Bld) 2.8 % Normal [facility] Comment on above: Order Comment: Speci men Type: BLOOD SPECIMENOrdering Facility: Address: [address] [place] [address] Performed By: #### 5 7021-8 ####[facility]ITALNCA [id number] [place] [address] [place] Neutrophils (Bld) [#/Vol] 9.10 10*3/uL High 1.45-7.50 [facility] Comment on above: Order Comment: Speci men Type: BLOOD SPECIMENOrdering Facility: Address: [address] [place] [address] Performed By: #### 5 7021-8 ####[facility]NCLIA [id number] [place] [address] [place] Neutrophils/100 WBC (Bld) 84.3 % Normal [facility] Comment on above: Order Comment: Speci men Type: BLOOD SPECIMENOrdering Facility: Address: [address] [place] [address] Performed By: #### 5 7021-8 ####[facility] ROSANGELAWELISALIA [id number] [place] [address] [place] Nucleated RBC (Bld) [#/Vol] 10*3/uL Normal <0.01 [facility] Comment on above: Order Comment: Speci men Type: BLOOD SPECIMENOrdering Facility: Address: [address] [place] [address] Performed By: #### 5 7021-8 ####[facility]ALIA [id number] [place] [address] [place] Nucleated RBC/100 WBC (Bld) [Ratio] 0.0 /100 WBC Normal [facility] Comment on above: Order Comment: Speci men Type: BLOOD SPECIMENOrdering Facility: Address: [address] [place] [address] Performed By: #### 5 7021-8 ####[facility] [id number] [place] [address] [place] Platelet mean volume (Bld) [Entitic vol] 11.1 fL Normal 9.0-12.7 [facility] Comment on above: Order Comment: Speci men Type: BLOOD SPECIMENOrdering Facility: Address: [address] [place] [address] Performed By: #### 5 7021-8 ####[facility]ENTERLIA [id number] [place] [address] [place] Platelets (Bld) [#/Vol] 258 10*3/uL Normal 150-400 [facility] Comment on above: Order Comment: Speci men Type: BLOOD SPECIMENOrdering Facility: Address: [address] [place] [address] Performed By: #### 5 7021-8 ####[facility]NCLIA [id number] [place] [address] [place] RBC (Bld) [#/Vol] 3.80 10*6/uL Low 3.90-5.20 [facility] Comment on above: Order Comment: Speci men Type: BLOOD SPECIMENOrdering Facility: Address: [address] [place] [address] Performed By: #### 5 7021-8 ####[facility] HOSPITALRebeca [id number] [place] [address] [place] WBC (Bld) [#/Vol] 10.78 10*3/uL Normal 3.70-11.00 [facility] Comment on above: Order Comment: Speci men Type: BLOOD SPECIMENOrdering Facility: Address: [address] [place] [address] Performed By: #### 5 7021-8 ####[facility] [id number] [place] [address] [place] GESTATIONAL GLUCOSE SCREEN, 1-HOUR, 50 GRAM, NON-FASTINGon 01-04-2025 Glucose [Mass/Vol] 172 mg/dL High 74-134 [facility] Comment on above: Order Comment: Speci men Type: BLOOD SPECIMENOrdering Facility: Address: [address] [place] [address] Result Comment: [facility] Congress of Obstetricians and Gynecologists (Horton/Vidya) guidelines state a gestational diabetes mellitus positive screen is made, in women not previously diagnosed with overt diabetes, when the 1 hr plasma glucose level is equal to or above 140 mg/dL. The [facility] Dynamometer Tester and [facility] recommends a 135 mg/dL cutoff. Performed By: #### G LTGST ####[facility]ITALA [id number] [place] [address] [place] Reagin and Treponema pallidu m IgG and IgM [Interp]on 01-04-2025 T. pallidum IgG+IgM IA Ql (S) Non-Reactive Normal Nonreactive [facility] Comment on above: Order Comment: Speci men Type: BLOOD SPECIMENOrdering Facility: Address: [address] [place] [address] Performed By: #### 7 3752-8 ####[facility] LABCLIA [id number] [place] [address] [place] Reagin+T pallidum IgG+IgM Se rPl-Impon 01-04-2025 Reagin and Treponema pallidum IgG and IgM [Interp] Cannot exclude recent Treponemal infection if specimen collected within 7-10 days after appearance of suspect lesions or 2-3 weeks after an exposure. Clinical correlation is required. Normal [facility] Comment on above: Order Comment: Speci men Type: BLOOD SPECIMENOrdering Facility: Address: [address] [place] [address] Performed By: #### 7 3752-8 ####[facility] LABCLIA [id number] [address] [place] CNPNon 12-30-2024 CNPN Telephone ([id number]) -------- LÓPEZ BRAVO ([id number]) 4 F Date Time Provider Department 12/30/24 LIZETH PATEL [id number] During your visit today, we recorded the [...] MD - Fully Assessed Reason for Visit: Wool Sacker - Other [3602] Cmt: PRAF Prescriptions as [...] Status:Closed by LIZETH PATEL on 12/30/24 Normal [facility] Examination level ultrasound on 12-20-2024 Indication [...] 14 oz EFW by: [employer] (HC-AC-FL) Extended Instrument [employer]ic [employer] 5.5 mm CM 5.2 mm 19% Nicolaides [...] normal LVOT view: normal 3-vessel view: normal 7-sbipgw-txntdhi view: normal Heart / Thorax Situs: situs [...] Read By: Alba Rodas M.D. MATERNAL MEDICINE [facility] Radiology Study observation (narrative) [facility] [place] 12-09-2024 [facility] Telephone (SHIREEN) -------- LÓPEZ BRAVO ([id number]) 4 F Date Time Provider Department 12/09/24 RICH MURPHY During your visit today, we recorded the following information about you: Rich Murphy MSW 12/09/2024 11:31 AM Signed Yesenia tried call to patient to discuss transportation resource options. No answer and vmail is full. Rich Murphy, EDIPHONE OPERATOR 12/09/2024 11:31 AM Signed Yesenia will send [...] Encounter Status:Closed by RICH MURPHY on 12/20/24 [facility] 12-08-2024 [facility] Telephone (CHANTELWShania) -------- LÓPEZ BRAVO ([id number]) 4 F Date Time Provider Department 12/08/24 [...] still planning on continuing care here at [place]. Patient states she has problems with transportation because her mom boyfriend is the only one with a car and he works [employer]. Patient states she also gets sick on the car ride. Discussed with patient possibly getting care in [place] at HOSPICE COORDINATOR office there at it is closer or [...] Fully Assessed Primary Visit Diagnosis:Transportation insecurity [Z59.82] Order(s):[employer] FIRM ACCOUNTS MANAGER [CONSULT TO SOCIAL WORK] [] Order #: [id number]: 1 Prescriptions as of 12/13/2024 - metoprolol [...] Encounter Status:Closed by VAL LIU on 12/13/24 [facility] 12-06-2024 CNPN Telephone (OBGYWM) -------- LÓPEZ BRAVO ([id number]) 4 F Date Time Provider Department 12/06/24 LIDIA RAZA OBFRANKY During your visit today, we recorded the following information about you: Lizeth Gleason RN 12/06/2024 9:06 AM Signed Received breast pump RX from [employer]. To BLADIMIR to sign. PREETI Cox Trisha, [...] Encounter Status:Closed by VAL LIU on 12/06/24 [facility] [place] 11-30-2024 CNPN Telephone (OBGYWM) -------- LÓPEZ BRAVO ([id number]) 4 F Date Time Provider Department 11/30/24 [...] for 16 week visit. Had anatomy at [facility]. Please advise. Please call mother's phone as patient is going to try and get some rest. [phone] PREETI Cox Karmon, MD 11/30/2024 11:31 AM [...] Status:Closed by LILLIAN AVILEZ on 11/30/24 Normal [facility] OB REPEATon 11-25-2024 OB REPE[address] [address] Patient: LÓPEZ BRAVO Phone#: : [phone] Age: 24 Gender: F Pt. Type: Out Account: [id number] Location: 052 Ordering: LIDIA RAZA Exam Date: 11/25/2024/12:56 Family Phys: LIDIA COYNE Charge Code: [id number] Physician: [place] Order #: [id number] Dose#: PROCEDURE: OB REPEAT ULTRASOUND, TRANSABDOMINAL COMPARISON: [facility], [place], OB INITIAL <14 WEEKS, 09/24/2024, [...] 24 Gender: F Pt. Type: Out Account: [id number] Location: 052 Ordering: LIDIA RAZA Exam Date: 11/25/2024/12:56 Family Phys: LIDIA COYNE Charge Code: [id number] Physician: [place] Order #: [id number] Dose#: Approved by: Bailey Rodriguez MD on 11/25/2024 at 17:02 [facility] CNPNon 11-15-2024 CNPN Telephone (OBGYWM) -------- LÓPEZ BRAVO ([id number]) 4 F Date Time Provider Department 11/15/24 LIDIA RAZA During your visit today, we recorded the following information about you: Lizeth Gleason RN 11/15/2024 4:45 PM Signed 20w6d Patient's anatomy US on 11/23 was only scheduled for 30 min. Our next 60 min opening is 11/30/24. Patient may want to have her anatomy at [facility] if they have a sooner visit. If so, she will send us a [employer] message with their fax number. Otherwise she will schedule in our office. Patient lives an hour away and has transportation issues. Advised that we could direct to our social worker masters for transportation resources. Patient states her mom's friend offered to drive her. PREETI Cox Jennifer, RN 11/16/2024 8:54 AM Signed [facility] [employer] [facility] Lizeth Gleason RN Allergies As [...] Encounter Status:Closed by LIZETH GLEASON on 11/16/24 [facility] CV ECHO COMPLETE CV ECHO COMPLETE [place] [address] Patient: LÓPEZ BRAVO Phone#: : 2000 Age: 24 Gender: F Pt. Type: Out Account: [id number] Location: [facility] Ordering: BARRY LARRY Exam Date: 10/29/2024/14:01 Family Phys: LIDIA COYNE Charge Code: 201801 Physician: [place] Order #: [id number] Dose#: PROCEDURE: ECHOCARDIOGRAM WITH DOPPLER AND COLOR FLOW HISTORY: Patient is 74-year-old female with tachycardia INDICATIONS: Tachycarida COMPARISON: None. TECHNIQUE: A 2-D ultrasound, color spectral Doppler and M-mode evaluation of the heart and great vessels. PATIENT MEASUREMENTS: Height (in.): 62 BSA: 1.78 Weight (lbs.): 168 BP: 117/74 Director Pediatric: CARI M MODE 2D MEASUREMENTS AND CALCULATIONS: [...] 24 Gender: F Pt. Type: Out Account: [id number] Location: [facility] Ordering: BARRY LARRY Exam Date: 10/29/2024/14:01 Family Phys: LIDAI Ayo DORETHA Charge Code: 681507 Physician: [place] Order #: [id number] Dose#: MV V2 mean: 0.52 m/s MV [...] 24 Gender: F Pt. Type: Out Account: [id number] Location: [facility] Ordering: BARRY LARRY Exam Date: 10/29/2024/14:01 Family Phys: LIDIA COYNE Charge Code: 705117 Physician: [place] Order #: [id number] Dose#: RIGHT VENTRICLE: Right ventricle is normal [...] ADRIENNE FUNEZ MD on 11/01/2024 at 10:16 [facility] CNPNon 10-18-2024 CNPN Telephone (OBGYWM) -------- LÓPEZ BRAVO ([id number]) 4 F Date Time Provider Department 10/18/24 [...] was told letter has to come from HOSPICE COORDINATOR and not brick setter operator stating she is not physically able to [...] Encounter Status:Closed by VAL LIU [facility]/24 [facility] (OBGYWM) -------- LÓPEZ BRAVO ([id number]) 4 F Date Time Provider Department 10/15/24 STEFANIE CAMPBELL During your visit today, we recorded the following information about you: Pina Perea RN 10/15/2024 12:40 PM Signed Please call patient and confirm her metoprolol dose. Also recommended an echo. Is she getting that at [facility] or can I order it at [facility]? Thanks! MD Brit Medina Lindsey, RN 10/15/2024 12:40 PM Signed Attempted to contact patient but no answer and unable to leave a message as voicemail box is full. MyChart message sent. PREETI Orona Lindsey, RN 10/15/2024 3:27 PM Signed Patient called back and states she is currently taking Metoprolol 50 mg BID. Patient states she is scheduled for her echocardiogram on 10/27 at [facility]. PREETI Orona Karmon, MD 10/15/2024 3:57 PM [...] Status:Closed by VAL LIU on 10/15/24 [facility] Bacteria Ur Culton Bacteria identified Cx Nom (U) ORGANISM ID: 1 50,000-<100,000 CFU/ml Normal urogenital delores [facility] Comment on above: Performed By: #### 6 30-4 ####[facility] LABCLIA [id number] [address] STATES OF [facility] CBC W Auto Differential pane l (Bld)on 10-14-2024 Basophils (Bld) [#/Vol] 10*3/uL Normal <0.11 [facility] Comment on above: Order Comment: Speci men Type: BLOOD SPECIMENOrdering Facility: Address: [address] [place] [address] Performed By: #### 5 7021-8 ####[facility] [id number] [place] [address] [place] Basophils/100 WBC (Bld) 0.2 % [facility] Comment on above: Order Comment: Speci men Type: BLOOD SPECIMENOrdering Facility: Address: [address] [place] [address] Performed By: #### 5 7021-8 ####[facility] [id number] [place] [address] [place] Differential cell count method Nom (Bld) Auto [facility] Comment on above: Order Comment: Speci men Type: BLOOD SPECIMENOrdering Facility: Address: [address] [place] [address] Performed By: #### 5 7021-8 ####[facility] [id number] [place] [address] [place] Eosinophils (Bld) [#/Vol] 0.06 10*3/uL Normal <0.46 [facility] Comment on above: Order Comment: Speci men Type: BLOOD SPECIMENOrdering Facility: Address: [address] [place] [address] Performed By: #### 5 7021-8 ####[facility] [id number] [place] [address] [place] Eosinophils/100 WBC (Bld) 0.6 % [facility] Comment on above: Order Comment: Speci men Type: BLOOD SPECIMENOrdering Facility: Address: [address] [place] [address] Performed By: #### 5 7021-8 ####[facility] [id number] [place] [address] [place] Erythrocyte distribution width (RBC) [Ratio] 17.1 % High 11.5-15.0 [facility] Comment on above: Order Comment: Speci men Type: BLOOD SPECIMENOrdering Facility: Address: [address] [place] [address] Performed By: #### 5 7021-8 ####[facility] KINDRAELISALIA [id number] [place] [address] [place] Hematocrit (Bld) [Volume fraction] 37.5 % Normal 36.0-46.0 [facility] Comment on above: Order Comment: Speci men Type: BLOOD SPECIMENOrdering Facility: Address: [address] [place] [address] Performed By: #### 5 7021-8 ####[facility] [id number] [place] [address] [place] Hemoglobin (Bld) [Mass/Vol] 12.6 g/dL Normal 11.5-15.5 [facility] Comment on above: Order Comment: Speci men Type: BLOOD SPECIMENOrdering Facility: Address: [address] [place] [address] Performed By: #### 5 7021-8 ####[facility] [id number] [place] [address] [place] Immature granulocytes (Bld) [#/Vol] 0.04 10*3/uL Normal <0.10 [facility] Comment on above: Order Comment: Speci men Type: BLOOD SPECIMENOrdering Facility: Address: [address] [place] [address] Performed By: #### 5 7021-8 ####[facility] ROSANGELAAbrahamNCLIA [id number] [place] [address] [place] Immature granulocytes/100 WBC (Bld) 0.4 % [facility] Comment on above: Order Comment: Speci men Type: BLOOD SPECIMENOrdering Facility: Address: [address] [place] [address] Performed By: #### 5 7021-8 ####[facility] [id number] [place] [address] [place] Lymphocytes (Bld) [#/Vol] 1.74 10*3/uL Normal 1.00-4.00 [facility] Comment on above: Order Comment: Speci men Type: BLOOD SPECIMENOrdering Facility: Address: [address] [place] [address] Performed By: #### 5 7021-8 ####[facility] [id number] [place] [address] [place] Lymphocytes/100 WBC (Bld) 17.3 % [facility] Comment on above: Order Comment: Speci men Type: BLOOD SPECIMENOrdering Facility: Address: [address] [place] [address] Performed By: #### 5 7021-8 ####[facility] [id number] [place] [address] [place] MCH (RBC) [Entitic mass] 30.4 pg Normal 26.0-34.0 [facility] Comment on above: Order Comment: Speci men Type: BLOOD SPECIMENOrdering Facility: Address: [address] [place] [address] Performed By: #### 5 7021-8 ####[facility] [id number] [place] [address] [place] MCHC (RBC) [Mass/Vol] 33.6 g/dL Normal 30.5-36.0 [facility] Comment on above: Order Comment: Speci men Type: BLOOD SPECIMENOrdering Facility: Address: [address] [place] [address] Performed By: #### 5 7021-8 ####[facility] [id number] [place] [address] [place] MCV (RBC) [Entitic vol] 90.4 fL Normal 80.0-100.0 [facility] Comment on above: Order Comment: Speci men Type: BLOOD SPECIMENOrdering Facility: Address: [address] [place] [address] Performed By: #### 5 7021-8 ####[facility] [id number] [place] [address] [place] Monocytes (Bld) [#/Vol] 0.44 10*3/uL Normal <0.87 [facility] Comment on above: Order Comment: Speci men Type: BLOOD SPECIMENOrdering Facility: Address: [address] [place] [address] Performed By: #### 5 7021-8 ####[facility] [id number] [place] [address] [place] Monocytes/100 WBC (Bld) 4.4 % [facility] Comment on above: Order Comment: Speci men Type: BLOOD SPECIMENOrdering Facility: Address: [address] [place] [address] Performed By: #### 5 7021-8 ####[facility] [id number] [place] [address] [place] Neutrophils (Bld) [#/Vol] 7.76 10*3/uL High 1.45-7.50 [facility] Comment on above: Order Comment: Speci men Type: BLOOD SPECIMENOrdering Facility: Address: [address] [place] [address] Performed By: #### 5 7021-8 ####[facility] [id number] [place] [address] [place] Neutrophils/100 WBC (Bld) 77.1 % [facility] Comment on above: Order Comment: Speci men Type: BLOOD SPECIMENOrdering Facility: Address: [address] [place] [address] Performed By: #### 5 7021-8 ####[facility] ROSANGELAWNCLIA [id number] [place] [address] [place] Nucleated RBC (Bld) [#/Vol] 10*3/uL Normal <0.01 [facility] Comment on above: Order Comment: Speci men Type: BLOOD SPECIMENOrdering Facility: Address: [address] [place] [address] Performed By: #### 5 7021-8 ####[facility] [id number] [place] [address] [place] Nucleated RBC/100 WBC (Bld) [Ratio] 0.0 /100 WBC [facility] Comment on above: Order Comment: Speci men Type: BLOOD SPECIMENOrdering Facility: Address: [address] [place] [address] Performed By: #### 5 7021-8 ####[facility] [id number] [place] [address] [place] Platelet mean volume (Bld) [Entitic vol] 11.3 fL Normal 9.0-12.7 [facility] Comment on above: Order Comment: Speci men Type: BLOOD SPECIMENOrdering Facility: Address: [address] [place] [address] Performed By: #### 5 7021-8 ####[facility] [id number] [place] [address] [place] Platelets (Bld) [#/Vol] 221 10*3/uL Normal 150-400 [facility] Comment on above: Order Comment: Speci men Type: BLOOD SPECIMENOrdering Facility: Address: [address] [place] [address] Performed By: #### 5 7021-8 ####[facility]CL[facility] [id number] [place] [address] [place] RBC (Bld) [#/Vol] 4.15 10*6/uL Normal 3.90-5.20 [facility] Comment on above: Order Comment: Speci men Type: BLOOD SPECIMENOrdering Facility: Address: [address] [place] [address] Performed By: #### 5 7021-8 ####[facility] [id number] [place] [address] [place] WBC (Bld) [#/Vol] 10.06 10*3/uL Normal 3.70-11.00 [facility] Comment on above: Order Comment: Speci men Type: BLOOD SPECIMENOrdering Facility: Address: [address] [place] [address] Performed By: #### 5 7021-8 ####[facility] [id number] [place] [address] [place] HBV surface Ag Ser Qlon HBV surface Ag Ql (S) Negative Normal Negative [facility] Comment on above: Order Comment: Speci men Type: BLOOD SPECIMENOrdering Facility: Address: [address] [place] [address] Performed By: #### M ICRO, 5195-3, 35317-3, 72707-8 ####[facility] LABCLIA [id number] [place] [address] [place] HCV Ab Ser Qlon 10-14-2024 HCV Ab Ql (S) Negative Normal Negative [facility] Comment on above: Order Comment: Speci men Type: BLOOD SPECIMENOrdering Facility: Address: [address] [place] [address] Result Comment: The result suggests no evidence of active infection with Hepatitis C virus. Should recent infection be suspected, repeat testing may be considered 4-6 weeks after this draw. Performed By: #### 1 6128-1 ####[facility] LABCLIA [id number] [place] [address] [place] [facility] [place] HIV 1+2 Ab IA Qlon 5 HIV 1 and 2 Ab IA.rapid Nom (S/P/Bld) [facility] Comment on above: Order Comment: Speci men Type: BLOOD SPECIMENOrdering Facility: Address: [address] [place] [address] Result Comment: Test not indicated. Performed By: #### M ICRO, 5195-3, 68707-2, 75458-7 ####[facility] LABIA [id number] [address] OF [facility] HIV 1+2 Ab+HIV1 p24 Ag IA Ql Non-Reactive Normal Nonreactive [facility] Comment on above: Order Comment: Speci men Type: BLOOD SPECIMENOrdering Facility: Address: [address] [place] [address] Performed By: #### M ICRO, 5195-3, 50829-7, 41736-4 ####[facility] LABCLIA [id number] [address] [place] HIV immunoassay testing algorithm interpretation (S/P/Bld) [Interp] [facility] Comment on above: Order Comment: Speci men Type: BLOOD SPECIMENOrdering Facility: Address: [address] [place] [address] Result Comment: No e vidence of HIV-1 or HIV-2 infection. Should recent infection be suspected, repeat testing may be considered 2-3 weeks after this draw. [place] Rev. Code 3701.243(E): This information has been [...] diagnoses. Performed By: #### M ICRO, 5195-3, 06332-4, 26504-4 ####[facility] LABCLIA [id number] [place] [address] [place] HbA1c (Bld)on 10-14-2024 Average glucose Estimated from glycated hemoglobin (Bld) [Mass/Vol] 97 mg/dL [facility] Comment on above: Order Comment: Speci men Type: BLOOD SPECIMENOrdering Facility: Address: [address] [place] [address] Result Comment: eAG: (Estimated average glucose) is a calculated value from HgbA1c and is corporate representative of the average blood glucose level in the last 2-3 month period. Performed By: #### 5 5454-3 ####[facility] LABCLIA [id number] [address] [place] HbA1c (Bld) [Mass fraction] 5.0 % Normal 4.3-5.6 [facility] Comment on above: Order Comment: Speci men Type: BLOOD SPECIMENOrdering Facility: Address: [address] [place] [address] Result Comment: Amer ican Diabetes Association guidelines indicate that patients with HgbA1c in the range 5.7-6.4% are at increased risk for development of diabetes, and intervention by lifestyle modification may be beneficial. HgbA1c greater or equal to 6.5% is considered diagnostic of diabetes. Performed By: #### 5 5454-3 ####[facility] LABCLIA [id number] [place] [id number] [place] NUVECEPI21 PLUSon 10-14-2024 Cell-free DNA./Cell-free DNA.total Dosage of chromosome-specific cfDNA (cfDNA) [Molar fraction] 23% [facility] Comment on above: Order Comment: Speci men Type: BLOOD SPECIMENOrdering Facility: Address: [address] [place] [address] Performed By: #### M AT21 ####[facility] LABCLIA [id number] [place] [address] Chr 13+18+21+X+Y aneuploidy Dosage of chromosome-specific cfDNA Ql (cfDNA) Negative [facility] Comment on above: Order Comment: Speci men Type: BLOOD SPECIMENOrdering Facility: Address: [address] [place] [address] Performed By: #### M AT21 ####[facility] LABCLIA [id number] [place] [address] Chr 21 trisomy Dosage of chromosome-specific cfDNA Ql (cfDNA) Negative [facility] Comment on above: Order Comment: Speci men Type: BLOOD SPECIMENOrdering Facility: Address: [address] [place] [address] Performed By: #### M AT21 ####[facility] LABCLIA [id number] [place] [address] Chr X and Y aneuploidy risk Sequencing Ql (cfDNA) [Interp] Not detected [facility] Comment on above: Order Comment: Speci men Type: BLOOD SPECIMENOrdering Facility: Address: [address] [place] [address] Result Comment: Not Detected Not Detected Performed By: #### M AT21 ####[facility] LABCLIA [id number] [place] [address] Citation Lbian (Reference lab test) Comment [facility] Comment on above: Order Comment: Speci men Type: BLOOD SPECIMENOrdering Facility: Address: [address] [place] [address] Result Comment: 1. P johnnie SOMERS, et al. Eva Med. 2012;14(3):296-305. 2. Sánchez BREEN et al. Prenat Diag. 2013;33(6):591-597. 3. Jozef C, et al. Clin Chem. 2015 Apr;61(4):608-616. 4. Devante SOMERS, et al. Eva Med. 2011;13(11):913-920. 5. ACOG/SMFM Practice Bulletin No. 226, May 2020. Performed By: #### M AT21 ####[facility] LABCLIA [id number] [place] [address] Gestational age Estimated from conception date [place] [facility] Comment on above: Order Comment: Speci men Type: BLOOD SPECIMENOrdering Facility: Address: [address] [place] [address] Performed By: #### M AT21 ####[facility] LABCLIA [id number] [place] [address] GESTATIONALAGE AGE > OR = 9W Yes [facility] Comment on above: Order Comment: Speci men Type: BLOOD SPECIMENOrdering Facility: Address: [address] [place] [address] Performed By: #### M AT21 ####[facility] LABCLIA [id number] [place] [id number] Laboratory comment Liban (Report) Comment [facility] Comment on above: Order Comment: Speci men Type: BLOOD SPECIMENOrdering Facility: Address: [address] [place] [address] Result Comment: The MaterniT(R) 21 PLUS laboratory-developed test (LDT) analyzes circulating cell-free DNA from a maternal blood sample. This test is used for screening purposes and not diagnostic. Clinical correlation is recommended. Validation data on twin pregnancies is limited and the ability of this test to detect aneuploidy in higher multiple gestations has not yet been validated. Performed By: #### M AT21 ####[facility] LABCLIA [id number] [place] [address] director of head start name Nom (Provider) Comment [facility] Comment on above: Order Comment: Speci men Type: BLOOD SPECIMENOrdering Facility: Address: [address] [place] [address] Result Comment: This specimen showed an expected representation of chromosome 21, 18 and 13 material. Clinical correlation is suggested. Comment Stoney Avery MD, PhD, Director, [employer] Performed By: #### M AT21 ####[facility] LABCLIA [id number] [place] [address] LIMITATIONS OF THE TEST Comment [facility] Comment on above: Order Comment: Speci men Type: BLOOD SPECIMENOrdering Facility: Address: [address] [place] [address] Result Comment: Jamilah campos the results of [...] and Fragmin(R)). Performed By: #### M AT21 ####[facility] LABCLIA [id number] [place] [address] Monosomy X risk Dosage of chromosome-specific cfDNA Ql (Plasma cell-free+WBC DNA) [Interp] Not detected [facility] Comment on above: Order Comment: Tara barajas Type: BLOOD SPECIMENOrdering Facility: Address: [address] [place] [address] Performed By: #### M AT21 ####[facility] LABCLIA [id number] [place] [address] NEGATIVE PREDICTIVE VALUE Note [facility] Comment on above: Order Comment: Tara barajas Type: BLOOD SPECIMENOrdering Facility: Address: [address] [place] [address] Result Comment: The Negative Predictive Value (NPV) for trisomy 21, 18, and 13 is greater than 99%. The NPV for SCA and ESS cannot be calculated as SCA and ESS are only reported when an abnormality is detected. Performed By: #### M AT21 ####[facility] LABCLIA [id number] [place] [address] PERFORMANCE CHARACTERISTICS Note [facility] Comment on above: Order Comment: Tara barajas Type: BLOOD SPECIMENOrdering Facility: Address: [address] [place] [address] Result Comment: ! Sex ! Accuracy: 99.4% [...] ! ! ! * As reported in [facility] database nstd37 [https://www.ncbi.nlm.nih.gov/dbvar/studies/nstd37/ ] # Estimated Sensitivity. [...] gestation only. Performed By: #### M AT21 ####[facility] LABCLIA [id number] [place] [address] POSITIVE PREDICTIVE VALUE N/A [facility] Comment on above: Order Comment: Speci men Type: BLOOD SPECIMENOrdering Facility: Address: [address] [place] [address] Performed By: #### M AT21 ####[facility] LABCLIA [id number] [place] [id number] Reference Lab Test Method Comment [facility] Comment on above: Order Comment: Speci men Type: BLOOD SPECIMENOrdering Facility: Address: [address] [place] [address] Result Comment: See Notes Circulating cell-free DNA [...] and 22. Performed By: #### M AT21 ####[employer] [facility] LABCLIA [id number] [place] [address] Service comment (Unsp spec) [Interp] Comment [facility] Comment on above: Order Comment: Speci men Type: BLOOD SPECIMENOrdering Facility: Address: [address] [place] [address] Result Comment: See Notes [employer] with [employer]. is a subsidiary of [employer], using the brand [employer]. This test was developed and its performance characteristics determined by [employer]. It has not been cleared or approved by the Food and Drug Administration. This laboratory is certified under the Clinical Laboratory Improvement Amendments (CLIA) as qualified to perform high complexity clinical laboratory testing and accredited by the [employer] (CAP). If there is future clinical need for adding MaterniT GENOME testing, this specimen will be available until term. [facility] samples will not be retained beyond 60 days. [facility] patients will have to send a new sample for re-sequencing ([facility] Test Code: 948547). Performed By: #### M AT21 ####[facility] LABCLIA [id number] [place] [address] Sex Dosage of chromosome-specific cfDNA Nom (cfDNA) Comment [facility] Comment on above: Order Comment: Speci men Type: BLOOD SPECIMENOrdering Facility: Address: [address] [place] [address] Result Comment: Cons istent with Female Performed By: #### M AT21 ####[facility] LABCLIA [id number] [place] [address] Test performance information Liban (Unsp spec) Comment [facility] Comment on above: Order Comment: Speci men Type: BLOOD SPECIMENOrdering Facility: Address: [address] [place] [address] Result Comment: The performance characteristics of the MaterniT(R) 21 PLUS laboratory-developed test (LDT) have been determined in a clinical validation study with women at increased risk for chromosomal aneuploidy.[1-4] Performed By: #### M AT21 ####[facility] LABCLIA [id number] [place] [address] Trisomy 13 risk Dosage of chromosome-specific cfDNA Ql (cfDNA) [Interp] Negative [facility] Comment on above: Order Comment: Speci men Type: BLOOD SPECIMENOrdering Facility: Address: [address] [place] [address] Performed By: #### M AT21 ####[facility] LABCLIA [id number] [place] [address] Trisomy 18 risk Dosage of chromosome-specific cfDNA Ql (Plasma cell-free+WBC DNA) [Interp] Negative [facility] Comment on above: Order Comment: Speci men Type: BLOOD SPECIMENOrdering Facility: Address: [address] [place] [address] Performed By: #### M AT21 ####[facility] LABCLIA [id number] [place] [address] RUBELLA IGG ANTIBODYon 10-14 RUBELLA IGG AB, QUAL Positive Normal Positive [facility] Comment on above: Order Comment: Speci men Type: BLOOD SPECIMENOrdering Facility: Address: [address] [place] [address] Result Comment: The result suggests recent or past exposure to Rubella virus or history of Rubella vaccination. Positive result may also be seen due to presence of passively-transferred antibodies. Please correlate with patient's history. Performed By: #### R UBIGG ####[facility] LABCLIA [id number] [place] [address] [place] Reagin and Treponema pallidu m IgG and IgM [Interp]on 10-14-2024 T. pallidum IgG+IgM IA Ql (S) Non-Reactive Normal Nonreactive [facility] Comment on above: Order Comment: Speci men Type: BLOOD SPECIMENOrdering Facility: Address: [address] [place] [address] Performed By: #### M ICRO, 5195-3, 53203-4, 58423-6 ####[facility] LABCLIA [id number] [place] [address] [place] Reagin+T pallidum IgG+IgM Se rPl-Impon 10-14-2024 Reagin and Treponema pallidum IgG and IgM [Interp] Cannot exclude recent Treponemal infection if specimen collected within 7-10 days after appearance of suspect lesions or 2-3 weeks after an exposure. Clinical correlation is required. Normal [facility] Comment on above: Order Comment: Speci men Type: BLOOD SPECIMENOrdering Facility: Address: [address] [place] [address] Performed By: #### M ARIK, 5195-3, 53402-7, 23540-0 ####[facility] LABCLIA [id number] [place] [address] [place] T4 Free SerPl-mCncon 025 Free T4 [Mass/Vol] 1.0 ng/dL Normal 0.9-1.7 [facility] Comment on above: Order Comment: Tara barajas Type: BLOOD SPECIMENOrdering Facility: Address: [address] [place] [address] Performed By: #### 3 024-7, 3016-3 ####[facility] [id number] [place] [address] [place] [facility] THYROID PEROXIDASE ANTIBODYo n 10-14-2024 TPO Ab Qn [IU]/mL Normal <5.6 [facility] Comment on above: Order Comment: Tara barajas Type: BLOOD SPECIMENOrdering Facility: Address: [address] [place] [address] Result Comment: Thyr oid Peroxidase Antibody test is used as an aid in diagnosis of autoimmune thyroid disease. Clinical correlation is required. Performed By: #### M ARIK, 5195-3, 37144-1, 81884-1 ####[facility] LABCLIA [id number] [place] [address] [place] TSH SerPl-aCncon 10-14-2024 TSH Qn 1.740 m[IU]/L Normal 0.270-4.200 [facility] Comment on above: Order Comment: Tara barajas Type: BLOOD SPECIMENOrdering Facility: Address: [address] [place] [address] Result Comment: If t he patient is , TSH reference range varies by gestational period: First Trimester (weeks 9-12): 0.180-2.990 mIU/L Second Trimester: 0.110-3.980 mIU/L Third Trimester: 0.480-4.710 mIU/L Darrick Ramires et al. A Practical Approach for the Verifications and Determination of Site- and Trimester-Specific Reference Intervals for Thyroid Function tests in . Thyroid, 2019:29:3:412-420. William E, et al. 2017 Guidelines of the [place] [employer] for the Diagnosis and Management of Thyroid Disease during and the . Thyroid, 2017:27:3:315-389. Performed By: #### 3 024-7, 3016-3 ####[facility] LABORATORYCLIA [id number] [place] [address] [facility] TYPE + SCREEN PRENATALon ABO A Normal [facility] Comment on above: Order Comment: Tara barajas Type: BLOOD SPECIMENOrdering Facility: Address: [address] [place] [address] Performed By: #### T SPN ####[facility] BLOOD BANKIA [id number] [address] Rh Nom (Bld) Positive Normal [facility] Comment on above: Order Comment: Tara barajas Type: BLOOD SPECIMENOrdering Facility: Address: [address] [place] [address] Performed By: #### T SPN ####[facility] BLO[facility] BANKIA [id number] [address] TYPE AND SCREEN EXPIRATION 10/17/2024 22:59 Normal [facility] Comment on above: Order Comment: Tara barajas Type: BLOOD SPECIMENOrdering Facility: Address: [address] [place] [address] Performed By: #### T SPN ####[facility] MAIN BLOOD BANKCLIA [id number] [place] [id number] [facility] CNPMelida 10-06-2024 CNPN Telephone (OBGYWM) -------- LÓPEZ BRAVO ([id number]) 4 F Date Time Provider Department 10/06/24 LIDIA RAZA During your visit today, we recorded the following information about you: Isis Morse LPN 10/06/2024 4:24 PM Signed Ob patient is 15w1d and called stating that she is scheduled for an ultrasound tomorrow at [facility]. Patient thought the order was for an anatomy ultrasound. Is this an early anatomy ultrasound? Patient cancelled nuchal ultrasound on 09/27/2024 that was scheduled here and order was faxed to [facility] and they scheduled patient for tomorrow. Please [...] was told to get labs drawn at [facility] Allergies As of Date: 10/06/2024 Noted Allergy [...] Status:Closed by ISIS MORSE on 10/06/24 [facility] CNPN Telephone (OBGYWM) -------- LÓPEZ BRAVO ([id number]) 4 F Date Time Provider Department 09/27/24 LIDIA RAZA During your visit today, we recorded the following information about you: Lillian Avilez RN 09/27/2024 8:45 AM Signed 13w6d Pt went to [facility] 09/24/24 as advised. US of abdomen completed. [...] asking if Nuchal can be done at [facility]. Pt's next OB appt is currently scheduled 10/12/24. Do you want her scheduled next week, instead of 10/12/24? And is Nuchal able to be completed at ? Please advise. PREETI Patel Jessica, APRN.CNM 09/27/2024 9:19 AM Signed It will not be a nuchal but early anatomy US. I would recommend here but if unable to get in the next week can get at [facility], fax order and recommend within the week. [...] faxed to [facility]. Pt does want [id number] and interested in knowing gender. Unsure if [facility] does this-Pt is going to call and check and will let office know. Pt also advised to call [facility] to get lab and US appt scheduled for this week and keep OB appt scheduled for 10/12/24. Pt voiced understanding. PREETI Patel Tara, RN 09/29/2024 5:00 PM Signed See Pt's [employer] message on telephone note from 09/24/24. Please sign [id number] order as current order in chart-status is pending future. Once filed, will print and fax order to [facility] and contact Pt. Responded to Pt's [employer] message informing her BLADIMIR does not return to office until Friday. PREETI Patel Lindsey, RN 09/30/2024 3:49 PM Signed Patient notified and voiced understanding. Lab order faxed to [facility]. Pina Perea RN Allergies As of Date: 09/27/2024 Noted Allergy Reaction AMOXIL (AMOXICILLIN) 09/15/2024 8 - GI Upset Date Reviewed: 09/15/2024 Reviewed by: Enrrique Muñiz MA - Fully Assessed Reason for Visit: F/U ER visit [Other] Primary Visit Diagnosis:Encounter for screening of mother [Z36.9] Order(s):[id number] PLUS [SQMAT21] Order #: [id number] FUTURE Prescriptions as of 09/30/2024 - aspirin, [...] Status:Closed by ALBERT SWIFT on 09/30/24 Normal [facility] CBC + DIFFon 09-24-2024 Baso # 0.02 x10EE3/UL Normal 0.00 - 0.10 [facility] Comment on above: Performed By: #### 2 46694 #### [facility],[address] [place] [address] 07097 Basophils/100 WBC (Bld) 0.2 % Normal 0.0 - 2.0 [facility] Comment on above: Performed By: #### 2 25334 #### [facility],[address] [place], [place] [address] CBC + DIFF Normal [facility] Comment on above: Result Comment: CBC- COMPLETE BLOOD COUNT Performed By: #### 2 56009 #### [facility],[address] [place] [address] 14105 EO # 0.04 x10EE3/UL Normal 0.00 - 0.50 [facility] Comment on above: Performed By: #### 2 28409 #### [facility],[address] [place] [address] 09355 Eosinophils/100 WBC (Bld) 0.4 % Normal 0.0 - 7.0 [facility] Comment on above: Performed By: #### 2 28150 #### [facility],[address] [place], [place] [address] Erythrocyte distribution width (RBC) [Ratio] 15.7 % High 12.0 - 15.6 [facility] Comment on above: Performed By: #### 2 65215 #### [facility],[address] [place] [address] 84698 Hematocrit (Bld) [Volume fraction] 39.6 % Normal 34.0 - 46.0 [facility] Comment on above: Performed By: #### 2 84515 #### [facility],[address] [place] [address] 08046 Hemoglobin (Bld) [Mass/Vol] 13.1 g/dL Normal 12.0 - 16.0 [facility] Comment on above: Performed By: #### 2 49651 #### [facility],[address] [place] [address] 72343 Lymph # 1.33 x10EE3/UL Normal 0.80 - 2.80 [facility] Comment on above: Performed By: #### 2 19113 #### [facility],[address] [place] [address] 72526 Lymphocytes/100 WBC (Bld) 12.5 % Low 20.0 - 45.0 [facility] Comment on above: Performed By: #### 2 71311 #### [facility],[address] [place] [address] 47372 MANUAL DIFF N/A Normal [facility] Comment on above: Performed By: #### 2 64328 #### [facility],[address] [place] [address] 04066 MCH (RBC) [Entitic mass] 29 pg Normal 27 - 33 [facility] Comment on above: Performed By: #### 2 97893 #### [facility],[address] [place] [address] 52699 MCHC 33 X10 3 Normal 32 - 36 [facility] Comment on above: Performed By: #### 2 59954 #### [facility],[address] [place] [address] 94092 MCV (RBC) [Entitic vol] 88 fL Normal 80 - 99 [facility] Comment on above: Performed By: #### 2 53055 #### [facility],[address] [place] [address] 19984 [place] # 0.51 x10EE3/UL Normal 0.20 - 1.00 [facility] Comment on above: Performed By: #### 2 82181 #### [facility],[address] [place] [address] 32929 MONOS % 4.8 % Normal 0.0 - 10.0 [facility] Comment on above: Performed By: #### 2 73713 #### [facility],[address] [place] [address] 23352 Morphology Liban (Bld) [Interp] N/A Normal [facility] Comment on above: Performed By: #### 2 80331 #### [facility],[address] [place] [address] 72332 Neut # 8.71 x10EE3/UL High 1.50 - 7.10 [facility] Comment on above: Performed By: #### 2 07941 #### [facility],[address] [place] [address] 83322 Neutrophils/100 WBC (Bld) 82.1 % High 46.0 - 76.0 [facility] Comment on above: Performed By: #### 2 60951 #### [facility],[address] [place] [address] 06915 PLATELET 244 x10EE3/UL Normal 150 - 450 [facility] Comment on above: Performed By: #### 2 26350 #### [facility],[address] [place] [address] 56813 Platelet mean volume (Bld) [Entitic vol] 9.7 fL Normal 6.6 - 10.5 [facility] Comment on above: Result Comment: AUTO MATED DIFFERENTIAL Performed By: #### 2 41237 #### [facility],[address] [place] [address] 89600 RBC 4.52 x 10EE6/UL Normal 4.10 - 5.30 [facility] Comment on above: Performed By: #### 2 77459 #### [facility],[address] [place] [address] 84493 WBC 10.6 x 10EE3/UL Normal 4.5 - 10.8 [facility] Comment on above: Performed By: #### 2 32680 #### [facility],[address] [place] [address] 40362 CMP with eGFRon 09-24-2024 AGE 24 years Normal [facility] Comment on above: Performed By: #### 2 69215 #### [facility],[address] [place] [address] 46029 Albumin [Mass/Vol] 3.5 g/dL Normal 3.4 - 5.0 [facility] Comment on above: Performed By: #### 2 76573 #### [facility],[address] [place] [address] 34111 Albumin/Globulin [Mass ratio] 0.9 {ratio} Normal 0.9 - 1.6 [facility] Comment on above: Performed By: #### 2 10251 #### [facility],[address] [place] [address] 85845 ALK PHOS 55 U/L Normal 46 - 116 [facility] Comment on above: Performed By: #### 2 29802 #### [facility],[address] [place] [address] 75857 ALT [Catalytic activity/Vol] 47 U/L Normal 16 - 63 [facility] Comment on above: Performed By: #### 2 71223 #### [facility],[address] [place] [address] 45007 Anion gap [Moles/Vol] 19 mmol/L Normal 10 - 20 [facility] Comment on above: Performed By: #### 2 04648 #### [facility],[address] [place] [address] 22103 AST [Catalytic activity/Vol] 21 U/L Normal 13 - 39 [facility] Comment on above: Performed By: #### 2 04266 #### [facility],[address] [place] [address] 64844 B/C RATIO 10 ratio Normal 0 - 30 [facility] Comment on above: Performed By: #### 2 28349 #### [facility],[address] [place] [address] 36074 Bilirubin [Mass/Vol] 0.6 mg/dL Normal 0.2 - 1.0 [facility] Comment on above: Performed By: #### 2 50760 #### [facility],[address] [place] [address] 93321 Calcium [Mass/Vol] 8.9 mg/dL Normal 8.5 - 10.1 [facility] Comment on above: Performed By: #### 2 40111 #### [facility],[address] [place] [address] 75115 Chloride [Moles/Vol] 101 mmol/L Normal 98 - 107 [facility] Comment on above: Performed By: #### 2 92418 #### [facility],[address] [place] [address] 42974 CMP with eGFR Normal [facility] Comment on above: Result Comment: COMP REHENSIVE METABOLIC PANEL Performed By: #### 2 90833 #### [facility],[address] [place] [address] 53056 CO2 [Moles/Vol] 22.0 mmol/L Normal 21.0 - 32.0 [facility] Comment on above: Performed By: #### 2 87746 #### [facility],[address] [place] [address] 26226 Creatinine [Mass/Vol] 0.61 mg/dL Normal 0.55 - 1.02 [facility] Comment on above: Performed By: #### 2 54380 #### [facility],[address] [place] [address] 57811 GFR/1.73 sq M.predicted among non-blacks MDRD (S/P/Bld) [Vol rate/Area] mL/min/{1.73_m2} Normal 60 - 999 [facility] Comment on above: Performed By: #### 2 02683 #### [facility],[address] [place] [address] 90390 Result Comment: ACCO RDING TO THE NATIONAL KIDNEY DISEASE EDUCATION PROGRAM(NKDE), A NORMAL eGFR IS A VALUE GREATER THAN OR EQUAL TO 60 ML/MIN/1.73 SQ METERS. CHRONIC KIDNEY DISEASE: <60mL/MIN/1.73 SQ METERS KIDNEY FAILURE: <15mL/MIN/1.73 SQ METERS THIS TEST SHOULD ONLY BE USED FOR PATIENTS 18 YEARS OF AGE AND OLDER. Globulin (S) [Mass/Vol] 4.1 g/dL High 1.5 - 3.8 [facility] Comment on above: Performed By: #### 2 70771 #### [facility],[address] [place] [address] 51625 Glucose [Mass/Vol] 91 mg/dL Normal 74 - 106 [facility] Comment on above: Performed By: #### 2 62646 #### [facility],[address] [place] [address] 76525 Potassium [Moles/Vol] 3.5 mmol/L Normal 3.5 - 5.1 [facility] Comment on above: Performed By: #### 2 63213 #### [facility],[address] [place] [address] 64921 Protein [Mass/Vol] 7.6 g/dL Normal 6.4 - 8.2 [facility] Comment on above: Performed By: #### 2 34008 #### [facility],[address] [place] [address] 63367 Sodium [Moles/Vol] 138 mmol/L Normal 136 - 145 [facility] Comment on above: Performed By: #### 2 20144 #### [facility],[address] [place] [address] 16209 Urea nitrogen [Mass/Vol] 6 mg/dL Low 7 - 18 [facility] Comment on above: Performed By: #### 2 14135 #### [facility],[address] [place] [address] 10439 [place] 09-24-2024 CNPN Telephone (OBGYWM) -------- MAULIKLÓPEZ ([id number]) 4 F Date Time Provider Department 09/24/24 [...] Status:Closed by VAL LIU on 09/24/24 Normal [facility] ED MED ADMINISTRATION DETAIL on 09-24-2024 ED MED ADMINISTRATION DETAIL Particle Board Supervisor Medication Administration Record [place] [address] [place] [address] [id number] 09/24/2024 Patient: LÓPEZ BRAVO Sex: Female : [...] 19:51 John Booker R.N. 1 of 2 Particle Board Supervisor Medication Ordered Medication Administration Date/Time CefTRIAXone 16:58 [...] 17:41 Serge Driver-P. 2 of 2 Normal [facility] ED NURSES CLINICAL NOTEon ED NURSES CLINICAL NOTE Nurse Narrative Nurse Clinical Narrative [address] [address] [id number] 09/24/2024 Patient: LÓPEZ BRAVO Sex: Female : 2000 Age: 24y Primary Insurance: [facility] Policy Number: [id number] Subscriber: Other Disposition: Discharge to Home Disposition [...] report given (Kevan). ( Pt amb to [address] [facility] bed in ED.). -- 16:44 09/24/24 MIMI [...] precautions. Verbalizes understanding. -- 16:56 09/24/24 MIMI Walelr R.N. 16:56 09/24/24. IV NS 0.9 % 1000 mL started in bag#1 1000 mL at 999 mL/hr via Site# 1. Allergies verified and confirmed 5 rights. IV patency established. IV site checked: no pain, redness, or swelling. IV fl (more content not included)... Normal [facility] ED ORDER SHEET (CPOE ONLY)on 09-24-2024 ED ORDER SHEET (CPOE ONLY) Order Sheet Order Sheet [address] [place] [address] [id number] 09/24/2024 Patient: LÓPEZ BRAVO Sex: Female : [...] 09/24/2024 09/24/2024 sodium chloride IVPB 0.9 % Antnoino Sánchez Minibag+ 50 mL at 100 mL/hr [...] ) Antonino Crews Lucas Eastep, D.O. R.NAlyse RAlyseNAlyse [Electronically signed by Nicolasa Zurita D.O. (09/24/2024 16:34 EST)] [Electronically signed by Nicolasa Zurita D.O. (09/24/2024 16:40 EST)] [Electronically signed by Nicolasa Zurita D.O. (09/24/2024 16:42 EST)] 3 of 3 Normal [facility] ED PHYSICIAN CLINICAL REPORT on 09-24-2024 ED PHYSICIAN CLINICAL REPORT Narrative Physician Clinical Narrative [address] [address] [id number] 09/24/2024 Patient: LÓPEZ BRAVO Sex: Female : 2000 Age: 24y Primary Insurance: [facility] Policy Number: [id number] Subscriber: Other Disposition: Discharge to Home Disposition [...] Abnormal NORMAL EST NORMAL: 09/24/2024 15:15 Sp [place] 1.030 Final 1.010-1.030 EST NORMAL: 09/24/2024 15:15 Nitrite NEG Final NEGATIVE EST 500 NORMAL: 09/24 (more content not included)... Normal [facility] ED SUPER BILLon 09-24-2024 [facility] [address] [address] [id number] 09/24/2024 Patient: LÓPEZ BRAVO Sex: Female : 2000 Age: 24y Item Facility Professional Category Description Code Code Quantity Fee Total Drugs Normal Saline 470099 1 $0.00 $0.00 1000cc (122906) Nurse/E/M EMERGENCY 832961 1 $0.00 $0.00 DEPARTMENT VISIT HIGH/URGENT SEVERITY (02454-88) Nurse/IV/IM/Infusions Drip/IVPB initial 375594 1 $0.00 $0.00 (24630) Nurse/IV/IM/Infusions Hydration 804873 2 $0.00 $0.00 additional hour (02435) Nurse/IV/IM/Infusions IVP additional 044409 1 $0.00 $0.00 push (04082) Grand Total $0.00 Providers Nicolasa Zurita D.O. 1 of 2 [facility] Chief Complaint ABDOMINAL PAIN and FLANK PAIN. Principal Diagnosis First trimester . Acute urinary tract infection with cystitis. No pyelonephritis or hematuria. Not associated with indwelling catheter. ICD-10 Codes N30.90: Cystitis, unspecified without hematuria Z34.91: Encounter for supervision of normal , unspecified, first trimester Z3A.00: Weeks of gestation of not specified 2 of 2 Normal [facility] ED VISIT SUMMARYon ED VISIT SUMMARY Visit Overview Visit Overview [address] [address] [id number] 09/24/2024 Patient: LÓPEZ BRAVO Sex: Female : [...] CATHETER FIRST TRIMESTER 3 of 3 Normal [facility] ED VITALS FLOW SHEETon 09-24 ED VITALS FLOW SHEET Vitals Vital Sign Flow Sheet [address] [place] [address] [id number] 09/24/2024 Patient: LÓPEZ BRAVO Sex: Female : 2000 Age: 24y Measurements Wt: 74.8 kg, Ht/Francesco: 62.0 in, BMI: 30.18 Measured Time BP MAP HR RR O2Sat ETCO2 Temp Pain GCS RTS 19:41 09/24/2024 122/72 89 67 18 98% 14:23 09/24/2024 123/78 93 96 16 96% 98.3 F 0 1 of 1 Normal [facility] INFLUENZA VIRUS RAPID A/Bon 09-24-2024 INFLUENZA VIRUS [...] TO THREE DAYS. RESULT CRITICAL? NO Normal [facility] Comment on above: Performed By: #### 2 02593 ####[facility],[address] [place] [address] LIPASEon 09-24-2024 Lipase [Catalytic activity/Vol] 29.0 U/L Normal 15.0 - 78.0 [facility] Comment on above: Result Comment: *PLE ASE NOTE THAT RANGES FOR LIPASE HAVE CHANGED OF 08/08/23 DUE TO AN ASSAY UPDATE BY THE SQL TECH.THE NEW ASSAY RANGE IS 6-250 U/L, WITH A REFERENCE RANGE OF 16-77 U/L. Performed By: #### 2 43800 #### [facility],[address] [place] [address] URINALYSISon 09-24-2024 Amorphous NONE Normal [facility] Comment on above: Performed By: #### 2 49283 #### [facility],[address] [place] [address] Bacteria TRACE Normal [facility] Comment on above: Performed By: #### 2 70209 #### [facility],[address] [place] [address] Bilirubin Ql (U) 1 Abnormal NORMAL: NEGATIVE [facility] Comment on above: Performed By: #### 2 17410 #### [facility],[address] [place] [address] Casts NONE Normal [facility] Comment on above: Performed By: #### 2 35528 #### [facility],[address] [place] [address] Clarity (U) SL. CLOUDY Abnormal NORMAL: CLEAR [facility] Comment on above: Performed By: #### 2 23441 #### [facility],[address] [place] [address] Color (U) brown Normal NORMAL: YELLOW [facility] Comment on above: Performed By: #### 2 99737 #### [facility],[address] [place] [address] 67735 Crystals LM Nom (Urine sed) NONE Normal [facility] Comment on above: Performed By: #### 2 17244 #### [facility],[address] [place] [address] 53493 Epi Cells FEW Normal [facility] [facility] Comment on above: Performed By: #### 2 35877 #### [facility],[address] [place] [address] 18504 Glucose Ql (U) NORM Normal NORMAL: NORMAL [facility] Comment on above: Performed By: #### 2 01149 #### [facility],[address] [place] [address] 49214 Hemoglobin Ql (U) 150 Abnormal NORMAL: NEGATIVE [facility] Comment on above: Performed By: #### 2 97270 #### [facility],[address] [place] [address] 07035 Ketone 150 Abnormal NORMAL: NEGATIVE [facility] Comment on above: Performed By: #### 2 10308 #### [facility],[address] [place] [address] 74659 Leukocytes 500 Abnormal NORMAL: NEGATIVE [facility] Comment on above: Performed By: #### 2 18445 #### [facility],[address] [place] [address] 34307 Mucous NONE Normal [facility] Comment on above: Performed By: #### 2 58910 #### [facility],[address] [place] [address] 85907 Nitrite Ql (U) Negative Normal NORMAL: NEGATIVE [facility] Comment on above: Performed By: #### 2 62319 #### [facility],[address] [place] [address] 63511 pH (U) 5 [pH] Normal NORMAL: 5.0-8.0 [facility] Comment on above: Performed By: #### 2 65442 #### [facility],[address] [place] [address] Protein Ql (U) 30 Abnormal NORMAL: NEGATIVE [facility] Comment on above: Performed By: #### 2 04313 #### [facility],[address] [place] [address] Rbc 5-10 Normal 0-3/hpf [facility] Comment on above: Performed By: #### 2 30206 #### [facility],[address] [place] [address] Sp [place] 1.030 Normal NORMAL: 1.010-1.030 [facility] Comment on above: Performed By: #### 2 08934 #### [facility],[address] [place] [address] Specimen Type R Normal [facility] Comment on above: Performed By: #### 2 96744 #### [facility],[address] [place] [address] Urinalysis dipstick W Reflex Microscopic panel (U) SEE BELOW Normal [facility] Comment on above: Result Comment: MICR OSCOPIC Performed By: #### 2 90876 #### [facility],[address] [place] [address] Urobilinog 1 Abnormal NORMAL: NORMAL [facility] Comment on above: Performed By: #### 2 23363 #### [facility],[address] [place] [address] Wbc 11-15 Normal 0-5/hpf [facility] Comment on above: Performed By: #### 2 33733 #### [facility],[address] [place] [address] Yeast NONE Normal [facility] Comment on above: Performed By: #### 2 53937 #### [facility],[address] [place] [address] US KIDNEYon 09-24-[address] [address] Patient: LÓPEZ BRAVO Phone#: : 2000 Age: 24 Gender: F Pt. Type: ER Account: [id number] Location: 052 Ordering: NICOLASATutameeRNYMindBodyGreen Exam Date: 09/24/2024/15:04 Family Phys: LIDIA COYNE Charge Code: 027130 Physician: [place] Order #: [id number] Dose#: PROCEDURE: KIDNEY ULTRASOUND COMPARISON: None. INDICATIONS: [...] or obstruction. OTHER: Gallbladder calculi are present. Replanter calculus is 8 millimeters. CONCLUSION: 1. Mild right-sided hydronephrosis. 2. Cholelithiasis. Dictated by: Pearl Hartman MD on 09/24/2024 at 15:21 Approved by: Pearl Hartman MD on 09/24/2024 at 15:23 Normal [facility] US OB INITIAL< 14 WEEKS; 1st GESTATIONon 09-24-2024 US OB INITIAL< 14 WEEKS; [address]st [address] [address] Patient: LÓPEZ BRAVO Phone#: : 2000 Age: 24 Gender: F Pt. Type: ER Account: [id number] Location: 052 Ordering: NICOLASA CSERNYIK Exam Date: 09/24/2024/14:47 Family Phys: LIDIA COYNE Charge Code: 632056 Physician: [place] Order #: [id number] Dose#: PROCEDURE: OB INITIAL <14 WEEKS ULTRASOUND, [...] Hartman MD on 09/24/2024 at 15:33 Normal [facility] -------- LÓPEZ BRAVO ([id number]) 4 F Date Time Provider Department 09/16/24 NURSE PHOTOGRAPHY AND PRINTS CURATOR [facility] During your visit today, we recorded [...] Encounter Status:Closed by JEFFERY GARZA on 09/16/24 [facility] Telephone (OBGYWM) -------- LÓPEZ BRAVO ([id number]) 4 F Date Time Provider Department 09/16/24 LIDIA RAZA During your visit today, we recorded the following information about you: Lillian Avilez RN 09/16/2024 10:25 AM Signed Lidia Raza APRN.CNM P [facility] Ob-Backrest Assembler Pool Patient seen at [facility] yesterday. Can we please request records. [...] displeased with the care she received from [facility], specifically Dr. Larry. She felt like she was not being listened to, said he seemed to be slightly argumentative with her mother and boyfriend, and just overall was not kind. She States he has continued her aspirin, Pepcid, and has decreased her Metoprolol to 50mg in the morning and 50mg at night. Apologized to patient for her experience with [facility] and advised her to talk to [facility] if she felt she was dissatisfied with her care. 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 Barry Larry MD Status: DEP A MB Ordering Dr: Barry Larry MD Date: 09/15/24 Location: [facility] Sex: F C Admitted: [facility]/12 Lead EKG performed by [facility] ECG Report Interpretation --Sinus Rhythm WITHIN NORMAL LIMITSElectronically signed on 09/16/2024 at 11:37 by Barry Larry Nginx Software Version 8610 09/16/24 1140 Date Barry Larry MD CC: JACQUELINE Coyne Date Dictated: 09/15/241537 Date Transcribed: 02/05/25 1538 Product Merchandiser: [place] Signed Normal [facility] BACTERIAL VAGINOSIS NAATon 0 09-15-2024 Lactobacillus crispatus+gasseri+j ensenii + Gardnerella vaginalis + Atopobium vaginae rRNA DILIP+probe Ql (Vag fld) Not detected Normal Not detected [facility] Comment on above: Order Comment: Speci men Type: SWABOrdering Facility: Address: [address] [place] [address] Performed By: #### Cheryl VAMP, CVTV ####[facility] LABCLIA [id number] [address] [place] [address] [place] Bacteria Ur Culton [...] , Intermediate >32 , Resistant >64 Abnormal [facility] Comment on above: Performed By: #### 6 30-4 ####[facility] LABCLIA [id number] [place] [address] [place] C. trachomatis+N. gonorrhoea e DNA DILIP+probe Ql (Unsp spec)on 09-15-2024 C. trachomatis rRNA DILIP+probe Ql (Unsp spec) Not detected Normal Not detected [facility] Comment on above: Order Comment: Speci men Type: SWABOrdering Facility: Address: [address] [place] [address] Performed By: #### 3 6902-5 ####[facility] LABCLIA [id number] [place] [address] [place] N. gonorrhoeae rRNA DILIP+probe Ql (Unsp spec) Not detected Normal Not detected [facility] Comment on above: Order Comment: Speci men Type: SWABOrdering Facility: Address: [address] [place] [address] Performed By: #### 3 6902-5 ####[facility] LABCLIA [id number] [place] [address] [place] OSCAR/TRICHOMONAS NAATon 0 09-15-2024 C. glabrata RNA DILIP+probe Ql (Vag fld) Detected Abnormal Not detected [facility] Comment on above: Order Comment: Speci men Type: SWABOrdering Facility: Address: [address] [place] [address] Performed By: #### B VAMP, CVTV ####[facility] LABCLIA [id number] [place] [address] [place] Oscar sp DNA DILIP+probe Ql (Vag fld) Detected Abnormal Not detected [facility] Comment on above: Order Comment: Speci men Type: SWABOrdering Facility: Address: [address] [place] [address] Result Comment: The Oscar species group target includes C. albicans, C. tropicalis, C. parapsilosis, and C. dubliniensis. Performed By: #### B VAMP, CVTV ####[facility] LABCLIA [id number] [address] [place] T. vaginalis DNA DILIP+probe Ql (Unsp spec) Not detected Normal Not detected [facility] Comment on above: Order Comment: Speci men Type: SWABOrdering Facility: Address: [address] [place] [address] Performed By: #### B VAMP, CVTV ####[facility] LABCLIA [id number] [place] [address] [place] Cardiology Visit Reporton Cardiology Visit Report [facility] [address] [place] [address] OFFICE VISIT Date of Service: 09/15/24 MR#: [id number] Acct: [id number] Name: LÓPEZ BRAVO Rep #: [id number] : 2000 Provider: Dr. Barry Larry MD Age/Sex: 24/F Location: [facility] Status: Signed HPI HPI History of Present Illness Details: 24-year-old lady accompanied by her mother and her boyfriend who presents for a cardiac evaluation. Her major concern is that she has been tachycardic for many years dating back about 7 years in [place]. 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 She has been on metoprolol since she was 18 and her dosages have been increased. 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 Normal [facility] PAP TESTon 09-15-2024 ADEQUACY Satisfactory for interpretation. [facility] Comment on above: Order Comment: Speci men Type: FLUID SPECIMENOrdering Facility: Address: [address] [place] [address] Performed By: #### L [id number] ####[facility] LABCLIA [id number] [place] [address] [place] CASE REPORT [facility] Comment on above: Order Comment: Speci men Type: FLUID SPECIMENOrdering Facility: Address: [address] [place] [address] Result Comment: Gyne cologic Cytology Report Case: [id number] Authorizing Provider: Lidia Raza APRN.CNM Collected: 09/15/2024 02:51 PM Ordering Location: OB/Gynecology Received: 09/16/2024 07:49 AM First Screen: Jared, Piedad, CT, ASCP Specimen: Pap Test, ThinPrep, Cervix Performed By: #### L [id number] ####[facility] LABCLIA [id number] [place] [address] [place] CLINICAL HISTORY, CYTOLOGY, STRAP SETTER (Indicate Weeks) Normal [facility] Comment on above: Order Comment: Speci men Type: FLUID SPECIMENOrdering Facility: Address: [address] [place] [address] Performed By: #### L [id number] ####[facility] LABCLIA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 Tate MD Work Phone: [facility] 01-04-2025 13:54-0400 Diastolic blood pressure 74 mm[Hg] Lizeth Tate MD Work Phone: [facility] 01-04-2025 13:54-0400 Systolic blood pressure 110 mm[Hg] Lizeth Tate MD Work Phone: [facility] 12-20-2024 14:46-0400 Body mass index (BMI) [Ratio] 31.76 kg/m2 Carolyn Plotrafaela AMBULANCE ASSISTANT.CNM Work Phone: [facility] 12-20-2024 14:46-0400 Body weight 78.29 kg Carolyn Espinozarafaela AMBULANCE ASSISTANT.CNM Work Phone: [facility] 12-20-2024 14:46-0400 Diastolic blood pressure 78 mm[Hg] Carolyn Plotts AMBULANCE ASSISTANT.CNM Work Phone: [facility] 12-20-2024 14:46-0400 Systolic blood pressure 110 mm[Hg] Carolyn Plotts AMBULANCE ASSISTANT.CNM Work Phone: [facility] 10-14-2024 13:55-0500 Body mass index (BMI) [Ratio] 30.92 kg/m2 Stefanie Campbell MD Work Phone: [facility] 10-14-2024 13:55-0500 Body weight 76.2 kg Stefanie Campbell MD Work Phone: [facility] 10-14-2024 13:55-0500 Diastolic blood pressure 70 mm[Hg] Stefanie Campbell MD Work Phone: [facility] 10-14-2024 13:55-0500 Systolic blood pressure 110 mm[Hg] Stefanie Campbell MD Work Phone: [facility] 09-15-2024 13:15-0500 Body height 157 cm Lidiaamrija Raza AMBULANCE ASSISTANT.CNM Work Phone: [facility] 09-15-2024 13:15-0500 Body mass index (BMI) [Ratio] 29.81 kg/m2 Lidia Raza AMBULANCE ASSISTANT.CNM Work Phone: [facility] 09-15-2024 13:15-0500 Body weight 73.48 kg Lidia Raza APRN.CNM Work Phone: [facility] 09-15-2024 13:15-0500 Diastolic blood pressure 74 mm[Hg] Lidia Raza AMBULANCE ASSISTANT.CNM Work Phone: [facility] 09-15-2024 13:15-0500 Systolic blood pressure 102 mm[Hg] Lidia Ry AMBULANCE ASSISTANT.CNM Work Phone: [facility] Encounters Encounter Date Encounter Type Care Provider [...] Start: 03-17-2025 End: 03-17-2025 ambulatory SHARYN RODRIGUEZ Facility:[facility] Start: 03-15-2025 End: 03-15[facility] [place] Start: 03-15-2025 End: 03-15-2025 Patient encounter procedure [facility] [place] Comment on above: Population Health Na vigation Outreach ( to PCP/OB//) Start: 03-11-2025 End: 03-11-2025 Patient encounter procedure Lidia Raza JONAH Work Phone: OB/Gynecology Comment on above: Supervision of high risk in third trimester (HCC) (Primary Dx); 37 weeks gestation of (HCC); Diet controlled gestational diabetes mellitus (GDM) in third trimester (HCC); Hypothyroidism, unspecified type Start: 03-11-2025 End: 03-11-2025 [facility] LIDIA HUSLIA Facility:[facility] Start: 03-03-2025 End: 03-03-2025 ambulatory TIA DASDEIVN Facility:[facility] Start: 03-03-2025 End: 03-03-2025 Patient encounter procedure Albert Swift MD Work Phone: OB/Gynecology Comment on above: Supervision of high risk in third trimester (HCC) (Primary Dx); Diet controlled gestational diabetes mellitus (GDM) in third trimester (HCC); Hypothyroidism, unspecified type Diet controlled gest ational diabetes mellitus (GDM) in third trimester (HCC) (Primary Dx); with uncertain dates, antepartum ([facility]) Start: 03-03-2025 End: 03-03-2025 [facility] Facility:[facility] Start: 03-02-2025 End: 03-02-2025 Patient encounter procedure Capri Brown MD Work Phone: Allergy Comment on above: Adverse effect of dr cottrell, subsequent encounter (Primary Dx); Allergy to penicillin Start: 03-02-2025 End: 03-02-2025 ambulatory CAPRI BROWN Facility:[facility] Start: 02-28-2025 End: 02-28-2025 Telephone encounter Lizeth Patel RN Maternal Medic ine Comment on above: Wool Sacker - O ther ([facility]) Start: 02-25-2025 End: 02-25-2025 Office outpatient visit 15 minutes Lizeth Tate MD Work Phone: OB/Gynecology Comment on above: Supervision of high risk in third trimester (HCC) (Primary Dx); Diet controlled gestational diabetes mellitus (GDM) in third trimester (HCC); Hypothyroidism, unspecified type; Penicillin allergy; 35 weeks gestation of (HCC) Start: 02-25-2025 End: 02-25-2025 ambulatory LIZETH TATE Facility:[facility] Start: 02-21-2025 End: 02-21-2025 ambulatory KALEE MORE Facility:[facility] Start: 02-21-2025 End: 02-21-2025 Nutrition therapy [...] 02-02-2025 Patient encounter procedure [employer] [address] [employer] [facility] Maternal Medicine Comment on above: Diet controlled gest ational diabetes mellitus (GDM) in third trimester (HCC) (Primary Dx); Gestational diabetes mellitus (GDM) in third trimester, gestational diabetes method of control unspecified (HCC) Start: 02-02-2025 End: 02-02-2025 ambulatory CAROLYN RICHMOND Facility:[facility] Start: 01-26-2025 End: 01-26-2025 Patient encounter procedure Tr [facility] Work Phone: Start: 01-26-2025 End: 01-26-2025 ambulatory Lidia Coyne TECHNICIAN INVENTORY SPECIALIST-C Work Phone: [facility] Work Phone: Start: 01-20-2025 End: 01-20-2025 Patient encounter procedure Tia Jacobs APRN.CNP Work Phone: OB/Gynecology Comment on above: Supervision of high risk in third trimester (HCC) (Primary Dx); 30 weeks gestation of (HCC); Hypothyroidism, unspecified type; Tachycardia; Penicillin allergy; UTI (urinary tract infection) in , antepartum ([facility]); Diet controlled gestational diabetes mellitus (GDM) in third trimester ([facility]); Abnormal ultrasound Start: 01-20-2025 End: 01-20-2025 ambulatory TIA JACOBS Facility:[facility] Start: 01-19-2025 End: 01-19-2025 Telemedicine consultation with patient Emma Padgett MD Work Phone: Endocrinology Start: 01-19-2025 End: 01-19-2025 ambulatory Emma Padgett MD Work Phone: Endocrinology Comment on above: Hypothyroidism, unsp ecified type Start: 01-18-2025 End: 01-18-2025 Telephone encounter Carolyn Richmond APRN.CNM Work Phone: OB/Gynecology Comment on above: Results (3 hour gluc ose) Start: 01-13-2025 End: 01-13-2025 ambulatory ALBERT SWIFT [facility] Start: 01-05-2025 End: 03-07-2025 Follow-up encounter Carolyn Richmond APRN.CNM Work Phone: OB/Gynecology Start: 01-04-2025 End: 01-04-2025 Office outpatient visit 15 minutes Lizeth Tate MD Work Phone: OB/Gynecology Comment on above: Supervision of high risk in third trimester ([facility]) (Primary Dx); 28 weeks gestation of ([facility]) Start: 01-04-2025 End: 01-04-2025 ambulatory LIZETH TATE Facility:[facility] Start: 12-23-2024 End: 12-23-2024 ambulatory CAPRI BROWN Facility:[facility] Start: 12-23-2024 End: 12-23-2024 Office consultation [...] Supervision of high risk in second trimester ([facility]); Transportation insecurity; Tachycardia; Penicillin allergy Encounter for anatomic survey ([facility]) (Primary Dx); Late care affecting , antepartum ([facility]); 25 weeks gestation of (HCC) Start: 12-20-2024 End: 12-20-2024 ambulatory ALBERT SWIFT Facility:[facility] Start: 12-08-2024 End: 12-13-2024 Telephone encounter Lidia Raza APRN.CNM Work Phone: OB/Gynecology Start: 11-30-2024 End: 11-30-2024 Telephone encounter Stefanie Campbell MD Work Phone: OB/Gynecology Comment on above: OB vomiting Start: 11-26-2024 End: 11-26-2024 Chart abstracting Lidia Raza APRN.CNM Work Phone: OB/Gynecology Comment on above: Anatomy US Results Start: 11-25-2024 End: 11-25-2024 ambulatory LIDIA PINEDA [facility] Start: 11-15-2024 End: 11-16-2024 Telephone encounter Lidia Raza APRN.CNM Work Phone: OB/Gynecology Comment on above: Orders Start: 10-29-2024 End: 10-29-2024 ambulatory BARRY MEYERS [facility] Start: 10-27-2024 ambulatory Lidia Coyne [facility] Start: 10-19-2024 End: 11-17-2024 Follow-up encounter Albert Swift MD Work Phone: OB/Gynecology Start: 10-18-2024 End: 12-18-2024 Follow-up encounter Lina Sy APRN.DIESEL TRUCK TECHNICIAN Work Phone: OB/Gynecology Start: 10-18-2024 End: 10-19-2024 [...] Start: 10-14-2024 End: 10-14-2024 ambulatory LIDIA RAZA Facility:[facility] Start: 10-06-2024 End: 10-06-2024 Telephone encounter Lidia Raza APRN.CNM Work Phone: OB/Gynecology Comment on above: Care Start: 10-05-2024 ambulatory ADRIENNE MEYERS [facility] Start: 09-27-2024 End: 09-30-2024 Telephone encounter Lidia Raza APRN.CNM Work Phone: OB/Gynecology Comment on above: F/U ER visit Start: 09-24-2024 End: 09-24-2024 Telephone encounter Lizeth Tate MD Work Phone: OB/Gynecology Comment on above: Patient Update Start: 09-24-2024 End: 09-24-2024 Emergency department patient visit LIDIA BRADLEY [facility] Start: 09-20-2024 End: 09-20-2024 Follow-up encounter Lidia Raza APRN.CNM Work Phone: OB/Gynecology Comment on above: Penicillin allergy ( Primary Dx); Supervision of high risk in second trimester; Type 1 diabetes mellitus affecting , antepartum; 12 weeks gestation of Start: 09-16-2024 End: 09-17-2024 Telephone encounter Nurse Monument Letterer Alfonzo Batista Work Phone: Obstetrics/Gynecology Comment on above: PRAF Cardiology appointme nt Start: 09-15-2024 End: 09-15-2024 ambulatory [facility] Facility[facility] Start: 09-15-2024 End: 09-15-2024 Patient encounter procedure [...] OB/Gynecology Comment on above: [facility] Start: 09-13-2024 End: 10-06-2024 Telephone encounter Lidia Raza APRN.CNM Work Phone: OB/Gynecology Start: 09-01-2024 End: 09-15-2024 Telephone encounter Lidia Raza APRN.CNM Work Phone: OB/Gynecology Comment on above: Patient Question Start: 08-31-2024 End: 08-31-2024 ambulatory [facility] Facility:[facility] Start: 08-19-2024 End: 08-19-2024 Telephone encounter Delilah Payne LPN Work Phone: PHOTOGRAPHY AND PRINTS CURATOR [facility] Comment on above: Complex Family Plann ing [...] uterus after 1st trimest 08/11 gestation Carolyn Yi GUILLEN.CNM Work Phone: Start: 12-20-2024 Us preg uterus after 1st trimest 08/11 gestation Albert Swift MD Work Phone: Start: 10-14-2024 Antibody screen [place] Comment on above: Order Comment: Speci men Type: BLOOD SPECIMENOrdering Facility: Address: [address] [place] [address] Performed By: #### T SPN ####[facility] [id number] [address] [place] Start: 09-24-2024 Urinalysis LIDIA TOLEDO Comment on above: Result Comment: URIN ALYSIS Performed By: #### 2 [id number] #### [facility],[address] [place] [address] Start: 09-15-2024 Us uterus l imited 1/> fetuses Lidia Raza APRN.CNM Work Phone: Start: 09-15-2024 Urnls dip stick/tabl et rgnt auto w/o microscopy Lidia Raza APRN.CNM Work Phone: Plan of Treatment Date Care Activity Detail Author Start: 2077 RSV Vaccine (1 - 1-dose 75+ series) RSV Vaccine (1 - 1-dose 75+ series) [facility] Start: 09-15-2027 Screening for malignant neoplasm of cervix Cervical Cancer Screening [facility] Start: 09-15-2025 GC (Gonorrhea) Screening (18-24) GC (Gonorrhea) Screening (18-24) [facility] Start: 09-15-2025 Screening for Chlamydia trachomatis Chlamydia Screening (18-) [facility] Start: 04-11-2025 Influenza vaccination [facility] Start: 03-30-2025 End: 03-30-2025 Patient encounter procedure 03/30/2025 2:30 PM EDT Routine Office Visit OB/Gynecology [address] [place] [address] Carolyn Richmond APRN.CNM [address] [place] [address] OB OB/Gynecology Comment on above: OB Start: 03-24-2025 End: 03-24-2025 Patient encounter procedure 03/24/2025 3:50 PM EDT Routine Office Visit OB/Gynecology [address] [address] Sharyn Rodriguez MD [address] [place] [address] OB OB/Gynecology Comment on above: OB Start: 03-17-2025 End: 03-17-2025 Patient encounter procedure 03/17/2025 3:10 PM EDT Routine Office Visit OB/Gynecology [address] [place] [address] Sharyn Rodriguez MD [address] [place] [address] OB OB/Gynecology Comment on above: OB Start: 03-09-2025 End: 03-09-2025 Patient encounter procedure 03/09/2025 3:15 PM EDT Routine Office Visit OB/Gynecology [address] [place] [address] Carolyn Richmond APRN.CNShanai [address] [place] [address] OB OB/Gynecology Comment on above: OB Start: 03-03-2025 End: 03-03-2025 Patient encounter procedure Maternal Medicine Comment on above: Growth Growth /OB Start: 03-02-2025 End: 03-02-2025 Patient encounter procedure 03/02/2025 10:30 AM EDT Office Visit Allergy [address] [place] [id number] Capri Brown MD [address] [place] [address] PCN Testing, 36 wks Allergy Comment on above: PCN Testing, 36 wks Start: 02-25-2025 End: 02-25-2025 Patient encounter procedure 02/25/2025 2:50 PM EDT Routine Office Visit OB/Gynecology [address] [place] [address] Lizeth Tate MD [address] [place] [address] OB OB/Gynecology Comment on above: OB Start: 02-21-2025 End: 02-21-2025 Nutrition therapy 02/21/2025 9:30 AM EDT [facility] Nutrition Therapy [address] [place] [address] [place] [address] Dx: Gestational diabetes mellitus (GDM) in third trimester, gestational diabetes method of control unspecified (HCC) [O24.419] Nutrition Therapy Comment on above: Dx: Gestational diab etes mellitus (GDM) in third trimester, gestational diabetes method of control unspecified (HCC) [O24.419] Start: 02-16-2025 End: 02-16-2025 Patient encounter procedure 02/16/2025 2:30 PM EDT Routine Office Visit OB/Gynecology [address] [place] [address] Janeen Prather MD [address] [place] [address] OB OB/Gynecology Comment on above: OB Start: 02-02-2025 End: 02-02-2025 Patient encounter procedure Maternal Medicine Comment on above: Growth Growth/OB Start: 01-25-2025 End: 01-25-2025 Nursing evaluation of patient and report 01/25/2025 3:00 PM EDT Nurse Visit Endocrinology [address] [place] [address] Delroy Saucedo, PREETI [address] [id number] Dx: Gestational diabetes mellitus (GDM) in third [...] gestation of (HCC) Expected: 01/20/2025, Expires: 04/21/2025 [facility] Comment on above: Expected: 01/20/2025 , Expires: 04/21/2025 Start: 01-20-2025 End: 12-20-2025 GESTATIONAL GLUCOSE SCREEN, 1-HOUR, 50 GRAM, NON-FASTING GESTATIONAL GLUCOSE SCREEN, 1-HOUR, 50 GRAM, NON-FASTING Lab Routine Screening for diabetes mellitus Expected: 01/20/2025 (Approximate), Expires: 12/20/2025 [facility] Work Phone: Comment on above: Expected: 01/20/2025 (Approximate), Expires: 12/20/2025 Start: 01-20-2025 End: 12-20-2025 SYPHILIS TREPONEMAL W/REFLEX SYPHILIS TREPONEMAL W/REFLEX Lab Routine 25 weeks gestation of (HCC) Expected: 01/20/2025 (Approximate), Expires: 12/20/2025 [facility] Comment on above: Expected: 01/20/2025 (Approximate), Expires: 12/20/2025 Start: 01-20-2025 End: 04-21-2025 Thyrotropin [Units/volume] in Serum or Plasma THYROID STIMULATING HORMONE Lab Routine Hypothyroidism, unspecified type Expected: 01/20/2025, Expires: 04/21/2025 [facility] Comment on above: Expected: 01/20/2025 , Expires: 04/21/2025 Start: 01-20-2025 End: 04-21-2025 Thyroxine (T4) free [Mass/volume] in Serum or Plasma T4 FREE/FREE THYROXINE Lab Routine Hypothyroidism, unspecified type Expected: 01/20/2025, Expires: 04/21/2025 [facility] Comment on above: Expected: 01/20/2025 , Expires: 04/21/2025 Start: 01-19-2025 End: 01-19-2025 ambulatory 01/19/2025 8:00 AM EDT [facility] Endocrinology [address] [place] [id number] Emma Padgett MD [address] [place] [address] Hypothyroidism, unspecified type [E03.9] Endocrinology Comment on above: Hypothyroidism, unsp ecified type [E03.9] Start: 01-05-2025 End: 04-06-2025 GEST GLUC WILMER, 3-HR, 100 GM, FASTING GEST GLUC WILMER, 3-HR, 100 GM, FASTING Lab Routine Elevated glucose Expected: 01/05/2025, Expires: 04/06/2025 [facility] Work Phone: Comment on above: Expected: 01/05/2025 , Expires: 04/06/2025 Start: 01-04-2025 End: 01-04-2025 Patient encounter procedure 01/04/2025 1:50 PM EDT Routine Office Visit OB/Gynecology [address] [place] [address] Lizeth Tate MD [address] [place], [place] [address] OB OB/Gynecology Comment on above: OB Start: 01-04-2025 End: 01-04-2025 ambulatory 01/04/2025 1:30 PM EDT Results Only [facility] [address] [place] [address] Glucose Test [facility] Comment on above: Glucose Test Start: 12-23-2024 End: 12-23-2024 ambulatory 12/23/2024 9:00 AM EDT [facility] Allergy [facility] [place] [address] Capri Brown MD [address] [place] [address] 25 weeks gestation of (HCC) [Z3A.25]; Penicillin allergy [Z88.0 Allergy Comment on above: 25 weeks gestation o f (HCC) [Z3A.25]; Penicillin allergy [Z88.0 Start: 12-20-2024 End: 12-20-2024 Patient encounter procedure OB/Gynecology Comment on above: OB - u/s after growth u/s - had felix delcid at [facility] Start: 11-23-2024 End: 11-23-2024 Patient encounter procedure 11/23/2024 10:40 AM EDT Office Visit Endocrinology [address] [place] [address] Emma Padgett MD [address] [place], [place] [id number] Hypothyroidism, unspecified type [E03.9] Endocrinology Comment on above: Hypothyroidism, unsp ecified type [E03.9] Start: 11-23-2024 End: 11-23-2024 Patient encounter procedure 11/23/2024 8:40 AM EDT Routine Office Visit OB/Gynecology [address] [place] [address] Janeen Prather MD [address] [place] [address] Anatomy/OB OB/Gynecology Comment on above: Anatomy/OB Start: 11-17-2024 End: 11-16-2025 OBSTETRIC ULTRASOUND WHI OBSTETRIC ULTRASOUND WHI Anc Imaging Routine Encounter for anatomic survey (HCC) Expected: 11/17/2024, Expires: 11/16/2025 [facility] Work Phone: Comment on above: Expected: 11/17/2024 , Expires: 11/16/2025 Start: 11-10-2024 End: 11-10-2024 Patient encounter procedure Maternal Medicine Comment on above: Anatomy Anatomy/OB Start: 10-22-2024 End: 10-22-2024 Patient encounter procedure 10/22/2024 1:00 PM EDT Office Visit Endocrinology [address] [place] [address] Emma Padgett MD [address] [place] [address] Hypothyroidism, unspecified type [E03.9] Endocrinology Comment on above: Hypothyroidism, unsp ecified type [E03.9] Start: 10-12-2024 End: 10-12-2024 Patient encounter procedure 10/12/2024 1:10 PM EST Routine Office Visit OB/Gynecology [address] [place] [address] Albert Swift MD [address] [place] [address] OB OB/Gynecology Comment on above: OB Start: 09-30-2024 End: 12-30-2024 Chromosome 21 trisomy [Presence] in Blood or Tissue by Cytogenetics [id number] PLUS Lab Routine Encounter for screening of mother Expected: 09/30/2024, Expires: 12/30/2024 [facility] Work Phone: Comment on above: Expected: 09/30/2024 , Expires: 12/30/2024 Start: 09-27-2024 End: 09-27-2024 Patient encounter procedure Maternal Medicine Comment on above: Nuchal OB Start: 09-16-2024 End: 12-16-2024 Thyrotropin [Units/volume] in Serum or Plasma THYROID STIMULATING HORMONE Lab Routine Hypothyroidism, unspecified type Expected: 09/16/2024, Expires: 12/16/2024 [facility] Comment on above: Expected: 09/16/2024 , Expires: 12/16/2024 Start: 09-16-2024 End: 12-16-2024 Thyroxine (T4) free [Mass/volume] in Serum or Plasma T4 FREE/FREE THYROXINE Lab Routine Hypothyroidism, unspecified type Expected: 09/16/2024, Expires: 12/16/2024 [facility] Comment on above: Expected: 09/16/2024 , Expires: 12/16/2024 Start: 09-15-2024 End: 12-15-2024 ANEMIA REFLEX PANEL ANEMIA REFLEX PANEL Lab Routine with uncertain dates, antepartum Expected: 09/15/2024, Expires: 12/15/2024 [facility] Work Phone: Comment on above: Expected: 09/15/2024 , Expires: 12/15/2024 Start: 09-15-2024 End: 12-15-2024 Hemoglobin A1c in Blood HEMOGLOBIN A1C Lab Routine with uncertain dates, antepartum Expected: 09/15/2024, Expires: 12/15/2024 [facility] Comment on above: Expected: 09/15/2024 , Expires: 12/15/2024 Start: 09-15-2024 End: 12-15-2024 Hepatitis B virus surface Ag [Presence] in Serum HEPATITIS B SURFACE ANTIGEN Lab Routine with uncertain dates, antepartum Expected: 09/15/2024, Expires: 12/15/2024 [facility] Comment on above: Expected: 09/15/2024 , Expires: 12/15/2024 Start: 09-15-2024 End: 12-15-2024 Hepatitis C virus Ab [Presence] in Serum HEPATITIS C ANTIBODY IA WITH CONFIRMATION Lab Routine with uncertain dates, antepartum Expected: 09/15/2024, Expires: 12/15/2024 [facility] Comment on above: Expected: 09/15/2024 , Expires: 12/15/2024 Start: 09-15-2024 End: 12-15-2024 HIV 1+2 Ab [Presence] in Serum or Plasma by Immunoassay HIV 1/2 COMBO WITH REFLEX TO DIFFERENTIATION Lab Routine with uncertain dates, antepartum Expected: 09/15/2024, Expires: 12/15/2024 [facility] Comment on above: Expected: 09/15/2024 , Expires: 12/15/2024 Start: 09-15-2024 End: 09-15-2025 OBSTETRIC ULTRASOUND WHI OBSTETRIC ULTRASOUND WHI Anc Imaging Routine with uncertain dates, antepartum Expected: 09/15/2024, Expires: 09/15/2025 [facility] Comment on above: Expected: 09/15/2024 , Expires: 09/15/2025 Start: 09-15-2024 End: 12-15-2024 RUBELLA IGG ANTIBODY RUBELLA IGG ANTIBODY Lab Routine with uncertain dates, antepartum Expected: 09/15/2024, Expires: 12/15/2024 [facility] Comment on above: Expected: 09/15/2024 , Expires: 12/15/2024 Start: 09-15-2024 End: 12-15-2024 SYPHILIS TREPONEMAL W/REFLEX SYPHILIS TREPONEMAL W/REFLEX Lab Routine with uncertain dates, antepartum Expected: 09/15/2024, Expires: 12/15/2024 [facility] Comment on above: Expected: 09/15/2024 , Expires: 12/15/2024 Start: 09-15-2024 End: 12-15-2024 THYROID PEROXIDASE ANTIBODY THYROID PEROXIDASE ANTIBODY Lab Routine Hypothyroidism, unspecified type Expected: 09/15/2024, Expires: 12/15/2024 [facility] Comment on above: Expected: 09/15/2024 , Expires: 12/15/2024 Start: 09-15-2024 End: 12-15-2024 TYPE + SCREEN TYPE + SCREEN Blood Bank Routine with uncertain dates, antepartum Expected: 09/15/2024, Expires: 12/15/2024 [facility] Comment on above: Expected: 09/15/2024 , Expires: 12/15/2024 Start: 09-15-2024 End: 09-15-2024 Patient encounter procedure 09/15/2024 1:00 PM EST Initial Office Visit OB/Gynecology [address] [place] [address] Lidia Raza APRN.CNM [address] [place] [address] lmp 06/22/24- Patient has Tachycardia/ Referral in scan doc OB/Gynecology Comment on above: lmp 06/22/24- Patien t has Tachycardia/ Referral in scan doc Start: 04-11-2024 Covid-19 Vaccine ( season) Covid-19 Vaccine ( season) [facility] Start: 04-11-2024 Influenza vaccination Influenza Vacc ine (#1) [facility] Start: 2023 Screening for malignant neoplasm of cervix Cervical Cancer Screening [facility] Start: 2021 Hepatitis B Vaccine (1 of 3 - 19+ 3-dose series) Hepatitis B Vaccine (1 of 3 - 19+ 3-dose series) [facility] Start: 2021 Urine microalbumin profile DTaP,Tdap,Td Vaccine (1 - Tdap) [facility] Start: 2020 Annual PCP Team Chronic Disease Visit Annual PCP Team Chronic Disease Visit [facility] Start: 2020 Anxiety Screening Anxiety Screening [facility] Start: 2020 Depression Screening Depression Scre ening [facility] Start: 2020 GC (Gonorrhea) Screening (18-24) GC (Gonorrhea) Screening (18-24) [facility] Start: 2020 Hepatitis C screening Hepatitis C Sc reening [facility] Start: 2020 HIV screening HIV Screening [facility] Start: 2020 Screening for Chlamydia trachomatis Chlamydia Screening (18-24) [facility] Start: 2018 Meningococcal B Vaccine (1 of 2 - Standard) Meningococcal B Vaccine (1 of 2 - Standard) [facility] Start: 2018 Meningococcal B Vaccine: Consider Based On Risk (1 of 2 - Patient Seeks Protection) Meningococcal B Vaccine: Consider Based On Risk (1 of 2 - Patient Seeks Protection) [facility] Start: 2017 HPV Vaccine (1 - 3-dose series) HPV Vaccine (1 - 3-dose series) [facility] Start: 2016 Peds To Adult Transition Annual Assessment Peds To Adult Transition Annual Assessment [facility] Start: 2014 Peds To Adult Transition Initial Discussion Peds To Adult Transition Initial Discussion [facility] ALLERGEN SKIN TEST-PENICILLIN ALLERGEN SKIN TEST-PENICILLIN Procedures Routine Adverse effect of drug, subsequent encounter Allergy to penicillin Ordered: 03/02/2025 [facility] Work Phone: Comment on above: Ordered: 03/02/2025 Bacteria identified in Urine by Culture BACTERIAL CULTURE, URINE Microbiology Routine with uncertain dates, antepartum 09/15/2024 2:10 PM [facility] Bacteria identified in Urine by Culture BACTERIAL CULTURE, URINE Microbiology Routine UTI (urinary tract infection) in , antepartum 10/14/2024 2:22 PM [facility] Work Phone: Bacteria identified in Urine by Culture BACTERIAL CULTURE, URINE Microbiology Routine UTI (urinary tract infection) in , antepartum ([facility]) Ordered: 01/20/2025 [facility] Work Phone: Comment on above: Ordered: 01/20/2025 BACTERIAL VAGINOSIS NAAT BACTERIAL VAGINOSIS NAAT Lab Routine with uncertain dates, antepartum Vaginal discharge 09/15/2024 2:51 PM [facility] OSCAR/TRICHOMONAS NAAT OSCAR/TRICHOMONAS NAAT Lab Routine with uncertain dates, antepartum Vaginal discharge 09/15/2024 2:51 PM [facility] Chlamydia trachomatis+Neisseria gonorrhoeae DNA [Presence] in Unspecified specimen by DILIP with probe detection GONORRHEA/CHLAMYDIA NAAT Lab Routine with uncertain dates, antepartum 09/15/2024 2:10 PM [facility] End: 01-18-2026 OBSTETRIC ULTRASOUND WHI OBSTETRIC ULTRASOUND WHI Anc Imaging Routine Gestational diabetes mellitus (GDM) in third trimester, gestational diabetes method of control unspecified (HCC) Once per month for 5 Occurrences starting 01/18/2025 until 01/18/2026 [facility] Work Phone: Comment on above: Once per month for 5 Occurrences starting 01/18/2025 until 01/18/2026 PAP TEST PAP TEST Lab Skylar gan Encounter for screening for malignant neoplasm of cervix 09/15/2024 2:51 PM EST [facility] UA DIP B/O UA DIP B/O Lab R outine Urinary tract infection without hematuria, site unspecified Ordered: 09/15/2024 [facility] Comment on above: Ordered: 09/15/2024 Payers Date Payer Category Payer Self-pay 2024 Medicaid [id number] 2024 Unknown [id number] 2002 Unknown [id number] 2.16.8 [id number] 2002 Unknown [id number] 2.16.8 [id number] 2002 Unknown [id number] 2.16.8 [id number] 2002 Unknown [id number] 2.16.8 [id number] 2002 Unknown [id number] 2.16.8 [id number] 2002 Unknown [id number] 2.16.8 [id number] 2002 Unknown [id number] 2.16.8 [id number] 2002 Unknown [id number] 2.16.8 [id number] Unknown [id number] 2.16.8 [id number] Unknown [id number] 2.16.8 [id number] Unknown [id number] 2.16.8 [id number] Unknown [id number] 2.16.8 [id number] Social History Date Type Detail Facility Tobacco smoking stat us NHIS Tobacco smoking consumption unknown [facility] Work Phone: Start: 2002 Sex assigned at Not on file [facility] Start: 09-15-2024 End: 09-27-2024 Gender identity Not on file [facility] Start: 09-15-2024 End: 09-27-2024 History of Social function [facility] Start: 12-04-2023 National Score (1-100), lower number is lower risk 50 [facility] Start: 09-09-2024 End: 09-15-2024 Tobacco smoking status GAIS Never smoked tobacco [facility] Start: 09-15-2024 Tobacco use and exposure Smokeless tobacco non-user [facility] Start: 09-16-2024 End: 03-24-2025 Alcoholic beverage intake Lifetime non-drinker (finding) [facility] Start: 07-06-2024 [facility] Start: 2002 Sex Assigned At Female W [facility] (I/We) worried wheth er (my/our) food would run out before (I/we) got money to buy more. Never true [facility] Medical Equipment Procedure Code Equipment Code Equipment Origin al Text Equipment Identifier Dates Use as directed to check glucose levels up to seven times daily. [id number] Start: 01-18-2025 Use as directed to check glucose levels up to seven times daily. [id number] Start: 01-18-2025 Goals Date Patient Goal Desired [...] to 03/28. Patient aware. Lizeth Gleason RN [facility] 03-25-2025 Miscellaneous Notes Induction moved to 03/28. [...] or this weekend? documented in this encounter [facility] 03-25-2025 Telephone encounter Note Could be moved to Friday however there may not be any available times slots at this point [facility] Work Phone: 03-25-2025 Telephone encounter Note Ob is 39w3d patient called c/o brownish-red spotting today and on-going lower back pain and pelvic pressure. Denies LOF, baby active. Patient had pelvic exam yesterday at ob appointment. Patient is scheduled for an induction 03/29 at 7pm. Patient asking if induction can be moved to 03/28/25 or this weekend? [facility] 03-25-2025 Telephone encounter Note Patient is scheduled 03/29 for induction of labor. Lizeth Gleason RN [facility] 03-25-2025 Miscellaneous Notes Patient is scheduled 03/29 for induction of labor. Lizeth Gleason RN Patient was seen 03/24/[address] Rodriguez. She was to call back with a preferred induction date. Patient calling back stating she would like to be induced on 03/29/2025. Any other dates would work but wants to avoid 03/28/2025 documented in this encounter [facility] 03-25-2025 Telephone encounter Note Patient was seen 03/24/[address] Rodriguez. She was to call back with a preferred induction date. Patient calling back stating she would like to be induced on 03/29/2025. Any other dates would work but wants to avoid 03/28/2025 [facility] 03-24-2025 Progress note Formatting of t his [...] - Labor precautions reviewed Sharyn Rodriguez DO [facility] 03-24-2025 Miscellaneous Notes SW- Pt doing well. [...] Sharyn Rodriguez DO documented in this encounter [facility] 03-24-2025 Instructions Deb Weiss MA - 03/24/2025 3:55 PM EDT SEQUENTIAL SCREENINGS The [facility] offers sequential screenings for women who are [...] It will require an appointment with our metallurgical engineering technician. This is not an ultrasound performed [...] the above symptoms, contact our office at [phone] and ask to speak with a nurse. After hours, you can call doctors registry at [phone] OR call [facility] at [phone] and ask to have the doctor manager relationship paged. If you consider this an emergency, dial 9--9 or go to your nearest emergency department. NEED HELP? Are you dealing with a violent or abusive relationship? Are you a victim of rape or sexual assult? Call [facility] ([place]) 24 hour Crisis Hotline: 236.611.1230 or 432-245-7118. MANUAL Your Guide to a Healthy manual is now on-line. Visit [email or web address] to download your free copy documented in this encounter [facility] 03-22-2025 Progress note Formatting of t his [...] RTO in 1 week Lidia Raza APRN.CNM [facility] 03-22-2025 Miscellaneous Notes BLADIMIR-S: López Bravo is [...] Lidia Raza APRN.CNM documented in this encounter [facility] 03-18-2025 Note HNO ID: [id number] Author: JORGE BERMUDEZ, ? Service: ? Author Type: Patient Manager Urgent Care Type: Progress Notes Filed: 03/18/2025 07:31 Note Text: POPULATION HEALTH NAVIGATION OUTREACH Action/FYI Patient responded via my chart is researching flight operation coordinator in [facility] Reason for Outreach Medicaid OB/Peds Care Gaps due: to PCP Visit Patient Contacted: Spoke to patient/parent/or legal guardian Patient identified by name and : Yes Medicaid OB/Peds actions taken: Patient declined: Patient requested call back from navigator/ will call navigator back Navigation Signature: Jorge Bermudez Population Health Navigator March 18, 2025 7:30 AM [facility] 03-17-2025 Note HNO ID: [id number] Author: SHARYN RODRIGUEZ MD Service: ? Author [...] - RTO 1 wk Sharyn Rodriguez DO [facility] 03-16-2025 Note HNO ID: [id number] Author: JORGE BERMUDEZ, ? Service: ? Author Type: Patient Manager Urgent Care Type: Progress Notes Filed: 03/16/2025 08:25 Note Text: POPULATION HEALTH NAVIGATION OUTREACH Action/FYI 3rd attempt unable to leave message to add flight operation coordinator to ob provider field Reason for Outreach Medicaid OB/Peds Care Gaps due: to PCP Visit Patient Contacted: Unable or unnecessary to reach patient: Unable to reach patient Unable to leave message Navigation Signature: Jorge Bermudez Population [employer] Navigator March 16, 2025 8:22 AM [facility] 03-15-2025 Note HNO ID: [id number] Author: JORGE BERMUDEZ, ? Service: ? Author Type: Patient Manager Urgent Care Type: Progress Notes Filed: 03/15/2025 09:11 Note Text: POPULATION HEALTH NAVIGATION OUTREACH Action/FYI Unable to leave message to add flight operation coordinator to OB provider field, verify/est pcp My chart sent Reason for Outreach Medicaid OB/Peds Care Gaps due: to PCP Visit Patient Contacted: Unable or unnecessary to reach patient: Unable to reach patient Unable to leave message Inbox message sent Navigation Signature: Jorge Bermudez Population [employer] Navignate March 15, 2025 9:10 AM [facility] 03-15-2025 History of Presen t illness Narrative POPULATION HEALTH NAVIGATION OUTREACH Action/FYI Unable to leave message to add flight operation coordinator to OB provider field, verify/est pcp My chart sent Reason for Outreach Medicaid OB/Peds Care Gaps due: to PCP Visit Patient Contacted: Unable or unnecessary to reach patient: Unable to reach patient Unable to leave message Inbox message sent Navigation Signature: Jorge Bermudez Population Health Navignate March 15, 2025 9:10 AM documented in this encounter [facility] 03-15-2025 Note Patient Outreach (NE TNAV) LÓPEZ BRAVO ([id number]) 4 F Date Time Provider Department 03/15/25 JORGE BERMUDEZ During your visit today, we recorded the following information about you: Jorge Bermudez 03/15/2025 9:11 AM Signed POPULATION HEALTH NAVIGATION OUTREACH Action/FYI Unable to leave message to add flight operation coordinator to OB provider field, verify/est pcp My chart sent Reason for Outreach Medicaid OB/Peds Care Gaps due: to PCP Visit Patient Contacted: Unable or unnecessary to reach patient: Unable to reach patient Unable to leave message Inbox message sent Navigation Signature: Jorge Bermudez 2[employer] Watch Navigator March 15, 2025 9:10 AM Jorge Bermudez 03/16/2025 8:25 AM Addendum POPULATION HEALTH NAVIGATION OUTREACH Action/FYI 3rd attempt unable to leave message to add flight operation coordinator to ob provider field Reason for Outreach Medicaid OB/Peds Care Gaps due: to PCP Visit Patient Contacted: Unable or unnecessary to reach patient: Unable to reach patient Unable to leave message Navigation Signature: Jorge Bermudez 2nd Watch Navignate March 16, 2025 8:22 AM Jorge Bermudez 03/18/2025 7:31 AM Signed POPULATION HEALTH NAVIGATION OUTREACH Action/FYI Patient responded via my chart is researching flight operation coordinator in [facility] Reason for Outreach Medicaid OB/Peds Care Gaps due: to PCP Visit Patient Contacted: Spoke to patient/parent/or legal guardian Patient identified by name and : Yes Medicaid OB/Peds actions taken: Patient declined: Patient requested call back from navigator/ will call navigator back Navigation Signature: Jorge Bermudez 2nd Watch Navigator March 18, 2025 7:30 AM Allergies [...] Encounter Status:Closed by JORGE BERMUDEZ on 03/15/25 [facility] 03-11-2025 Instructions Kayla Esteban MA - 03/11/2025 2:30 PM EDT SEQUENTIAL SCREENINGS The [facility] offers sequential screenings for women who are [...] It will require an appointment with our metallurgical engineering technician. This is not an ultrasound performed [...] the above symptoms, contact our office at [phone] and ask to speak with a nurse. After hours, you can call doctors registry at [phone] OR call [facility] at [phone] and ask to have the doctor manager relationship paged. If you consider this an emergency, dial 9-5-3 or go to your nearest emergency department. NEED HELP? Are you dealing with a violent or abusive relationship? Are you a victim of rape or sexual assult? Call [facility] ([place]) 24 hour Crisis Hotline: 406.577.6984 or 173-420-9412. MANUAL Your Guide to a Healthy manual is now on-line. Visit [email or web address] [email or web address] to download your free copy documented in this encounter [facility] 03-04-2025 Note Indication Evaluation of growth Limited [...] 6 oz EFW by: Hadlock (HC-AC-FL) Extended Instrument Mechanic Weapons System 5.6 mm Extremities / Bony Struc FL [...] Supervision of high risk in third trimester ([facility]) Orders: URINE OB DIP B/O Diet controlled gestational diabetes mellitus (GDM) in third trimester ([facility]) US today, final report pending. BS log reviewed, excellent control Orders: URINE OB DIP B/O Hypothyroidism, unspecified type TSH due today Orders: URINE OB DIP B/O Had amoxicillin yesterday so defer gbs until next visit kick counts f/u in 1 week or prn urine dip reviewed cont. PNV Albert Swift M.D. [facility] 03-03-2025 Miscellaneous Notes RR- VB No. LOF No. CTXS No. Movement: present. Other c/o: No. Medication list reviewed. SENSITIVE EXAM: Sensitive exam not performed. Physical Exam See Flow Sheet Abd: soft, nontender, gravid Ext: edema: Trace A/P 36w2d Estimated Date of Delivery: 03/29/25 Assessment & Plan Supervision of high risk in third trimester ([facility]) Orders: URINE OB DIP B/O Diet controlled gestational diabetes mellitus (GDM) in third trimester ([facility]) US today, final report pending. BS log reviewed, excellent control Orders: URINE OB DIP B/O Hypothyroidism, unspecified type TSH due today Orders: URINE OB DIP B/O Had amoxicillin yesterday so defer gbs until next visit kick counts f/u in 1 week or prn urine dip reviewed cont. PNV Albert Swift M.D. documented in this encounter [facility] 03-03-2025 Instructions Isabel Guzmán СЕРГЕЙ - 03/03/2025 1:05 PM EDT SEQUENTIAL SCREENINGS The [facility] offers sequential screenings for women who are [...] It will require an appointment with our metallurgical engineering technician. This is not an ultrasound performed [...] the above symptoms, contact our office at [phone] and ask to speak with a nurse. After hours, you can call doctors registry at [phone] OR call [facility] at [phone] and ask to have the doctor manager relationship paged. If you consider this an emergency, dial 9-1-1 or go to your nearest emergency department. NEED HELP? Are you dealing with a violent or abusive relationship? Are you a victim of rape or sexual assult? Call [facility] ([place]) 24 hour Crisis Hotline: 431.145.8376 or 586-933-0868. MANUAL Your Guide to a Healthy manual is now on-line. Visit [email or web address] [email or web address] to download your free copy documented in this encounter [facility] 03-02-2025 Instructions Capri Brown MD - 03/02/2025 [...] leave. Please call us or send a Simtrol message if that happens documented in this encounter [facility] 03-02-2025 Note HNO ID: [id number] Author: MONTSERRAT VALDEZ RN Service: ? Author [...] = 0 mm PENICILLIN GK 10,000 UNITS/ML [facility]: 0299-7990-97 LOT: [id number] Exp: 10/08/2025 P: W = 0 mm F = 0 mm ID: W = 0 mm F = 0 mm PREPEN -(benzylpenicilloyl polylysine) full strength [facility]: 69379-973-42 LOT: [id number] Exp: 09/10/2025 P: W = 0 mm F = 0 mm ID: W = 0 mm F = 0 mm AMPICILLIN SODIUM 12.5mg/ml [facility]: 4040-2994-74 LOT: [id number] Exp: 01/08/2027 P: W = 0 mm [...] to starting direct oral challenge 1244 Amoxicillin (Intelligence Applications: Hikma, NDC: 5844-3029-42 , Lot #: [id number], Expiration: 08/10/2026) 25 mg/0.5 ml oral suspension po given per Capri Brown MD's orders. 1314 Patient without signs of symptoms of allergic reaction. 1318 Amoxicillin (Intelligence Applications: Hikma, NDC: 7778-8613-41 , Lot #: [id number], Expiration: 08/10/2026) 225 mg/4.5 ml oral suspension po given per Capri Brown MD's orders. 1418 Pt. without signs or symptoms of allergic reaction. 1419 Vitals Obtained post challenge. 107/73 BP, 108 HR, 16 RR, 98 SpO2, 36.8 T Pt. seen by Capri Brown MD prior to leaving the office. Montserrat Valdez RN [facility] 03-02-2025 History of Presen t illness [...] = 0 mm PENICILLIN GK 10,000 UNITS/ML [facility]: 5373-5357-44 LOT: [id number] Exp: 10/08/2025 P: W = 0 mm F = 0 mm ID: W = 0 mm F = 0 mm PREPEN -(benzylpenicilloyl polylysine) full strength ND: 05346-967-93 LOT: [id number] Exp: 09/10/2025 P: W = 0 mm F = 0 mm ID: W = 0 mm F = 0 mm AMPICILLIN SODIUM 12.5mg/ml [facility]: 4522-5412-17 LOT: [id number] Exp: 01/08/2027 P: W = 0 mm [...] to starting direct oral challenge 1244 Amoxicillin (Intelligence Applications: Desert [employer]kma, NDC: 1127-8187-62 , Lot #: [id number], Expiration: 08/10/2026) 25 mg/0.5 ml oral suspension po given per Capri Brown MD's orders. 1314 Patient without signs of symptoms of allergic reaction. 1318 Amoxicillin (Intelligence Applications: [employer], NDC: 3059-2582-25 , Lot #: [id number], Expiration: 08/10/2026) 225 mg/4.5 ml oral suspension [...] = 0 mm PENICILLIN GK 10,000 UNITS/ML [facility]: 4136-8175-22 LOT: [id number] Exp: 10/08/2025 P: W = 0 mm F = 0 mm ID: W = 0 mm F = 0 mm PREPEN -(benzylpenicilloyl polylysine) full strength [facility]: 45786-624-55 LOT: [id number] Exp: 09/10/2025 P: W = 0 mm F = 0 mm ID: W = 0 mm F = 0 mm AMPICILLIN SODIUM 12.5mg/ml [facility]: 5961-4826-56 LOT: [id number] Exp: 01/08/2027 P: W = 0 mm [...] to starting direct oral challenge 1244 Amoxicillin (Intelligence Applications: Smart [employer]inations[employer], [facility]: 7224-1759-57 , Lot #: [id number], Expiration: 08/10/2026) 25 mg/0.5 ml oral suspension po given per Capri Brown MD's orders. 1314 Patient without signs of symptoms of allergic reaction. 1318 Amoxicillin (Intelligence Applications: Smart [employer], [facility]: 7038-8128-44 , Lot #: [id number], Expiration: 08/10/2026) 225 mg/4.5 ml oral suspension [...] arise. Capri Brown MD Allergy and Immunology [facility] documented in this encounter [facility] 03-02-2025 Note HNO ID: [id number] Author: CAPRI BROWN MD Service: ? Author [...] = 0 mm PENICILLIN GK 10,000 UNITS/ML [facility]: 7116-3855-22 LOT: [id number] Exp: 10/08/2025 P: W = 0 mm F = 0 mm ID: W = 0 mm F = 0 mm PREPEN -(benzylpenicilloyl polylysine) full strength ND: 02006-882-10 LOT: [id number] Exp: 09/10/2025 P: W = 0 mm F = 0 mm ID: W = 0 mm F = 0 mm AMPICILLIN SODIUM 12.5mg/ml ND: 9871-0421-11 LOT: [id number] Exp: 01/08/2027 P: W = 0 mm F = 0 mm ID: W = 0 mm F = 0 mm HISTAMINE- positive control (Histamine base 6mg/ml (more content not included)... [facility] 02-28-2025 Telephone encounter Note 3rd risk assessment form submitted 02/28/2025. Lizeth Patel RN [facility] 02-28-2025 Miscellaneous Notes 3rd risk assessment form submitted 02/28/2025. Lizeth Patel RN documented in this encounter [facility] 02-25-2025 Progress note Formatting of t his [...] gestational diabetes mellitus (GDM) in third trimester ([facility]) - ICD9: 648.83, ICD10: O24.410 - URINE OB DIP B/O 3. Hypothyroidism, unspecified type - ICD9: 244.9, ICD10: E03.9 - URINE OB DIP B/O 4. Penicillin allergy - ICD9: V14.0, ICD10: Z88.0 Allergy testing to be completed next week - URINE OB DIP B/O 5. 35 weeks gestation of ([facility]) - ICD9: V22.2, ICD10: Z3A.35 - URINE OB DIP B/O Lizeth Tate MD [facility] 02-25-2025 Miscellaneous Notes S: López Bravo is [...] Supervision of high risk in third trimester ([facility]) - ICD9: V23.9, ICD10: O09.93 (primary diagnosis) - URINE OB DIP B/O 2. Diet controlled gestational diabetes mellitus (GDM) in third trimester ([facility]) - ICD9: 648.83, ICD10: O24.410 - URINE OB DIP B/O 3. Hypothyroidism, unspecified type - ICD9: 244.9, ICD10: E03.9 - URINE OB DIP B/O 4. Penicillin allergy - ICD9: V14.0, ICD10: Z88.0 Allergy testing to be completed next week - URINE OB DIP B/O 5. 35 weeks gestation of ([facility]) - ICD9: V22.2, ICD10: Z3A.35 - URINE OB DIP B/O Lizeth Tate MD documented in this encounter [facility] 02-25-2025 Instructions Nicole Villeda MA - 02/25/2025 2:50 PM EDT SEQUENTIAL SCREENINGS The [facility] offers sequential screenings for women who are [...] It will require an appointment with our metallurgical engineering technician. This is not an ultrasound performed [...] the above symptoms, contact our office at [phone] and ask to speak with a nurse. After hours, you can call doctors registry at [phone] OR call [facility] at [phone] and ask to have the doctor manager relationship paged. If you consider this an emergency, dial 9-1-4 or go to your nearest emergency department. NEED HELP? Are you dealing with a violent or abusive relationship? Are you a victim of rape or sexual assult? Call [facility] ([place]) 24 hour Crisis Hotline: 140.658.3576 or 413-745-1251. MANUAL Your Guide to a Healthy manual is now on-line. Visit [email or web address] [email or web address] to download your free copy documented in this encounter [facility] 02-21-[address] - 02/21/2025 [...] available if meals are not appropriate. Call ([phone]). To schedule follow up nutrition visit for ~3 weeks documented in this encounter [facility] 02-21-2025 Note HNO ID: [id number] Author: KALEE MORE RD Service: ? Author Type: Registered Dietitian Type: Progress Notes Filed: 02/21/2025 11:55 Note Text: 9:32 AM [facility] Nutrition Therapy: Virtual Consult - Initial Assessment I have communicated my name and active licensure. The patient?s identity and physical location were verified at the time of this visit. Either the patient or their legal corporate representative has been informed of the risks [...] available if meals are not appropriate. Call ([phone]). To schedule follow up nutrition visit for [...] sandwich; salad; eggs; chicken sandwich; pasta; burger; [place] flakes/1% milk and fruit; pancakes water Snack [...] the Last Year: Never true Supplemented with [facility] Education Materials Provided: Healthy You - [...] Assess 3 units (more content not included)... [facility] 02-21-2025 History of Presen t illness Narrative 9:32 AM [facility] Nutrition Therapy: Virtual Consult - Initial Assessment I have communicated my name and active licensure. The patient s identity and physical location were verified at the time of this visit. Either the patient or their legal corporate representative has been informed of the risks [...] available if meals are not appropriate. Call ([phone]). To schedule follow up nutrition visit for [...] sandwich; salad; eggs; chicken sandwich; pasta; burger; [place] flakes/1% milk and fruit; pancakes water Snack [...] the Last Year: Never true Supplemented with [facility] Education Materials Provided: Healthy You - [...] SIGNATURE: Kalee More RD PATIENT NAME: López Bravo DATE: February 21, 2025 TIME: 9:36 AM documented in this encounter [facility] 02-03-2025 Note Indication Evaluation of growth Limited [...] 0 oz EFW by: Hadlock (HC-AC-FL) Extended Instrument Mechanic Weapons System 3.4 mm Extremities / Bony Struc FL [...] gestational diabetes mellitus (GDM) in third trimester ([facility]) - ICD9: 648.83, ICD10: O24.410 Lizeth Tate MD [facility] 02-02-2025 Miscellaneous Notes S: López Bravo is [...] gestational diabetes mellitus (GDM) in third trimester ([facility]) - ICD9: 648.83, ICD10: O24.410 Lizeth Tate MD documented in this encounter [facility] 02-02-2025 Instructions Isabel Guzmán MA - 02/02/2025 3:03 PM EDT SEQUENTIAL SCREENINGS The [facility] offers sequential screenings for women who are [...] It will require an appointment with our metallurgical engineering technician. This is not an ultrasound performed [...] the above symptoms, contact our office at [phone] and ask to speak with a nurse. After hours, you can call doctors registry at [phone] OR call [facility] at [phone] and ask to have the doctor manager relationship paged. If you consider this an emergency, dial 04-11-0 or go to your nearest emergency department. NEED HELP? Are you dealing with a violent or abusive relationship? Are you a victim of rape or sexual assult? Call [facility] ([place]) 24 hour Crisis Hotline: 106.200.7644 or 543-885-5168. MANUAL Your Guide to a Healthy manual is now on-line. Visit [email or web address] [email or web address] to download your free copy documented in this encounter [facility] 01-20-2025 Progress note Formatting of t his [...] UTI (urinary tract infection) in , antepartum ([facility]) - ICD9: 646.63, 599.0, ICD10: O23.40 - Third trimester rescreen today Diet controlled gestational diabetes mellitus (GDM) in third trimester ([facility]) - ICD9: 648.83, ICD10: O24.410 - [...] ICD10: O28.3 - See ultrasound report from [place]: cephalic index and femur length/head circumference ratios outside of expected ranges PTL precautions and kick counts reviewed. RTO in 2 weeks or sooner as needed. Tia Jacobs APRN.DIESEL TRUCK TECHNICIAN [facility] 01-20-2025 Miscellaneous Notes EH - S: López [...] Supervision of high risk in third trimester ([facility]) - ICD9: V23.9, ICD10: O09.93 (primary diagnosis) - Continue LDA and PNV 2. 30 weeks gestation of ([facility]) - ICD9: V22.2, ICD10: Z3A.30 Hypothyroidism, [...] gestational diabetes mellitus (GDM) in third trimester ([facility]) - ICD9: 648.83, ICD10: O24.410 - [...] ICD10: O28.3 - See ultrasound report from [place]: cephalic index and femur length/head circumference ratios outside of expected ranges PTL precautions and kick counts reviewed. RTO in 2 weeks or sooner as needed. Tia Jacobs APRN.DIESEL TRUCK TECHNICIAN documented in this encounter [facility] 01-20-2025 Instructions Kayla Esteban MA - 01/20/2025 3:21 PM EDT SEQUENTIAL SCREENINGS The [facility] offers sequential screenings for women who are [...] It will require an appointment with our metallurgical engineering technician. This is not an ultrasound performed [...] the above symptoms, contact our office at [phone] and ask to speak with a nurse. After hours, you can call doctors registry at [phone] OR call [facility] at [phone] and ask to have the doctor manager relationship paged. If you consider this an emergency, dial 7--5 or go to your nearest emergency department. NEED HELP? Are you dealing with a violent or abusive relationship? Are you a victim of rape or sexual assult? Call [facility] ([place]) 24 hour Crisis Hotline: 247.409.7983 or 945-101-2534. MANUAL Your Guide to a Healthy manual is now on-line. Visit [email or web address] to download your free copy SEQUENTIAL SCREENINGS The [facility] offers sequential screenings for women who are [...] It will require an appointment with our metallurgical engineering technician. This is not an ultrasound performed [...] the above symptoms, contact our office at [phone] and ask to speak with a nurse. After hours, you can call doctors registry at [phone] OR call [facility] at [phone] and ask to have the doctor manager relationship paged. If you consider this an emergency, dial or go to your nearest emergency department. NEED HELP? Are you dealing with a violent or abusive relationship? Are you a victim of rape or sexual assult? Call [facility] ([place]) 24 hour Crisis Hotline: 831.485.6932 or 357-080-3008. MANUAL Your Guide to a Healthy manual is now on-line. Visit [email or web address] to download your free copy documented in this encounter [facility] 01-19-2025 Note HNO ID: [id number] Author: EMMA PADGETT MD Service: ? Author [...] visit. Either the patient or their legal corporate representative has been informed of the risks and benefits of -- and alternatives to -- treatment through a remote evaluation and consents to proceed with the evaluation remotely. Recording using ambient Nival software for draft documentation of the visit was discussed with the patient/authorized corporate representative; all questions welcomed and answered. Patient/authorized corporate representative agreed to proceed CONSULTING PROVIDER: Lidia [...] about 1.5 years while she was in [place]. TFTs checked at that time were normal [...] Maternal Grandfather Hea (more content not included)... [facility] 01-19-2025 History of Presen t illness [...] visit. Either the patient or their legal corporate representative has been informed of the risks and benefits of -- and alternatives to -- treatment through a remote evaluation and consents to proceed with the evaluation remotely. Recording using [employer] software for draft documentation of the visit was discussed with the patient/authorized corporate representative; all questions welcomed and answered. Patient/authorized corporate representative agreed to proceed CONSULTING PROVIDER: Lidia [...] about 1.5 years while she was in [place]. TFTs checked at that time were normal [...] Campos et al. 2017 Guidelines of the [employer] for the Diagnosis and Management [...] Moderate Emma Padgett MD Endocrinology Associate Staff [facility] Endocrinology and Metabolism [place] [phone] documented in this encounter [facility] 01-18-2025 Telephone encounter Note Appt note made for 01/20/25 if patient does not view IGGt message. Needs to schedule appointments. Lizeth Gleason RN [facility] 01-18-2025 Miscellaneous Notes Appt note made for 01/20/25 if patient does not view IGGt message. Needs to schedule appointments. Lizeth Gleason RN Orders signed. Please assist with scheduling growth US. Carolyn Richmond APRN.CNM Received 3 hour glucose results from [facility]. Orders pending for consults (for diabetes education and mushroom packer) and testing supplies. Patient sees Endo for hypothyroidism. Mychart message sent to patient. Lizeth Gleason RN Scan on 01/18/2025 9:02 AM by ProviderNiranjan PA-C: 3 hour glucose documented in this encounter [facility] 01-18-2025 Telephone encounter Note Orders signed. Please assist with scheduling growth US. Carolyn Richmond APRN.CNM [facility] 01-18-2025 Telephone encounter Note Received 3 hour glucose results from [facility]. Orders pending for consults (for diabetes education and mushroom packer) and testing supplies. Patient sees Endo for hypothyroidism. [employer] message sent to patient. Lizeth Gleason RN Scan on 01/18/2025 9:02 AM by ProviderNiranjan PA-C: 3 hour glucose [facility] 01-04-2025 Progress note Formatting of t his [...] ICD10: Z3A.28 PTL precautions Lizeth Tate MD [facility] 01-04-2025 Miscellaneous Notes S: López Bravo is [...] Supervision of high risk in third trimester ([facility]) - ICD9: V23.9, ICD10: O09.93 (primary diagnosis) 2. 28 weeks gestation of ([facility]) - ICD9: V22.2, ICD10: Z3A.28 PTL precautions Lizeth Tate MD documented in this encounter [facility] 01-04-2025 Instructions Isabel Guzmán MA - 01/04/2025 1:27 PM EDT SEQUENTIAL SCREENINGS The [facility] offers sequential screenings for women who are [...] It will require an appointment with our metallurgical engineering technician. This is not an ultrasound performed [...] the above symptoms, contact our office at [phone] and ask to speak with a nurse. After hours, you can call doctors registry at [phone] OR call [facility] at [phone] and ask to have the doctor manager relationship paged. If you consider this an emergency, dial 9-1-2 or go to your nearest emergency department. NEED HELP? Are you dealing with a violent or abusive relationship? Are you a victim of rape or sexual assult? Call [facility] ([place]) 24 hour Crisis Hotline: 747.439.8426 or 285-375-4287. MANUAL Your Guide to a Healthy manual is now on-line. Visit [email or web address] ancyGuide to download your free copy documented in this encounter [facility] 12-23-2024 History of Presen t illness Narrative Images from the original note were not included. Allergy and Immunology I have communicated my name and active licensure. The patient's identity and physical location were verified at the time of this visit. Either the patient or their legal corporate representative has been informed of the risks [...] for March 02 at 10:30 AM in [place]. Instructed to withhold loratadine and other antihistamines [...] arise. Capri Brown MD Allergy and Immunology [facility] Recording using [employer] software for draft documentation of the visit was discussed with the patient/authorized corporate representative; all questions welcomed and answered. Patient/authorized corporate representative agreed to proceed I spent a total of 30 minutes on the date of the service which included preparing to see the patient, [id number] patient care, completing clinical documentation, obtaining and/or reviewing separately obtained history, performing a medically appropriate examination, counseling and educating the patient/family/caregiver, ordering medications, tests, or procedures, independently interpreting results (not separately reported), and communicating results to the patient/family/caregiver. documented in this encounter [facility] 12-23-2024 Note HNO ID: [id number] Author: CAPRI BROWN MD Service: ? Author Type: Physician Type: Progress Notes Filed: 12/23/2024 12:33 Note Text: Allergy and Immunology I have communicated my name and active licensure. The patient's identity and physical location were verified at the time of this visit. Either the patient or their legal corporate representative has been informed of the risks [...] for March 02 at 10:30 AM in [place]. Instructed to withhold loratadine and other antihistamines [...] arise. Capri Brown MD Allergy and Immunology [facility] Recording using [employer] software for draft documentation of the visit was discussed with the patient/authorized corporate representative; all questions welcomed and answered. Patient/authorized corporate representative agreed to proceed I spent a total of 30 minutes on the date of the service which included preparing to see the patient, [id number] patient care, completing clinical documentation, obtaining and/or reviewing separately obtained history, performing a medically appropriate examination, counseling an (more content not included)... [facility] 12-21-2024 Progress note Formatting of t his note might be different from the original. Anatomy ultrasound reviewed. No abnormalities identified. Follow up as clinically indicated. Please place copy in ob chart. Albert Swift MD [facility] 12-21-2024 Miscellaneous Notes Anatomy ultrasound reviewed. No abnormalities identified. Follow up as clinically indicated. Please place copy in ob chart. Albert Swift MD documented in this encounter [facility] 12-20-2024 Progress note Formatting of t his note might be different from the original. S: López Bravo is a 24 year old female who presents at 25 weeks gestation for a routine visit. Not seen in office since 16 weeks gestation due to transportation issues. Currently getting transportation from [facility]. Positive feta movements. Denies headache, visual [...] Tachycardia 6. Penicillin allergy - Consult to [facility] allergy clinic for testing - Patient of Cardiology at [place]- Continue metoprolol 100 mg PO daily - Continue ASA - Continue vitamin - Stressed importance of coming to all visits - PTL precautions and when to call office - RTO 3 weeks for LUIS with GCT Carolyn Richmond APRN.CNM [facility] 12-20-2024 Miscellaneous Notes S: López Bravo is a 24 year old female who presents at 25 weeks gestation for a routine visit. Not seen in office since 16 weeks gestation due to transportation issues. Currently getting transportation from [facility]. Positive feta movements. Denies headache, visual [...] Tachycardia 6. Penicillin allergy - Consult to [facility] allergy clinic for testing - Patient of Cardiology at [place]- Continue metoprolol 100 mg PO daily - Continue ASA - Continue vitamin - Stressed importance of coming to all visits - PTL precautions and when to call office - RTO 3 weeks for LUIS with GCT Carolyn Richmond APRN.CNM documented in this encounter [facility] 12-20-2024 Instructions Deb Weiss MA - 12/20/2024 2:45 PM EDT SEQUENTIAL SCREENINGS The [facility] offers sequential screenings for women who are [...] It will require an appointment with our metallurgical engineering technician. This is not an ultrasound performed [...] the above symptoms, contact our office at [phone] and ask to speak with a nurse. After hours, you can call doctors registry at [phone] OR call [facility] at [phone] and ask to have the doctor manager relationship paged. If you consider this an emergency, dial 8-8-7 or go to your nearest emergency department. NEED HELP? Are you dealing with a violent or abusive relationship? Are you a victim of rape or sexual assult? Call [facility] ([place]) 24 hour Crisis Hotline: 406.378.7373 or 936-135-5106. MANUAL Your Guide to a Healthy manual is now on-line. Visit [email or web address] ancyGuide to download your free copy documented in this encounter [facility] 12-13-2024 Telephone encounter Note Patient scheduled for growth u/s and OB visit on 12/20. Val Liu RN [facility] 12-13-2024 Miscellaneous Notes Patient scheduled for growth [...] still planning on continuing care here at [place]. Patient states she has problems with transportation because her mom boyfriend is the only one with a car and he works [employer]. Patient states she also gets sick on the car ride. Discussed with patient possibly getting care in [place] at [facility] office there at it is closer or [...] Lidia Raza APRN.CNM documented in this encounter [facility] 12-13-2024 Telephone encounter Note Thank you. Please assist patient in getting an appointment and then she can schedule transportation after discussing with medicaid. Thank you, Lidia Raza APRN.CNM [facility] 12-13-2024 Telephone encounter Note See Sw 12/09 note regarding response to below message. [facility] 12-08-2024 Telephone encounter Note Spoke with patient and states she was still planning on continuing care here at [place]. Patient states she has problems with transportation because her mom boyfriend is the only one with a car and he works [employer]. Patient states she also gets sick on the car ride. Discussed with patient possibly getting care in [place] at HOSPICE COORDINATOR office there at it is closer or [...] GILBERT Mercedes as well. Pina Perea, RN [facility] 12-08-2024 Telephone encounter Note Did patient transfer care? No office visit since 16 weeks. Can you please assist in scheduling soonest appointment this week or find out if she transferred. Would recommend repeat growth US in our office. Measuring behind and recommend follow up US. Lidia Raza APRN.CNM [facility] 11-30-2024 Telephone encounter Note Pt's mother notified and stated she did have Pt try a popsicle. Voiced understanding. Lillian Bhavin, RN [facility] 11-30-2024 Miscellaneous Notes Pt's mother notified and [...] for 16 week visit. Had anatomy at [facility]. Please advise. Please call mother's phone as patient is going to try and get some rest. [phone] Lizeth Gleason, PREETI documented in this encounter [facility] 11-30-2024 Telephone encounter Note If signs of dehydration then recommend going to ED. Stfeanie Campbell MD [facility] 11-30-2024 Telephone encounter Note 23w0d Patient's mother [...] for 16 week visit. Had anatomy at [facility]. Please advise. Please call mother's phone as patient is going to try and get some rest. [phone] Lizeth Gleason RN [facility] 11-26-2024 Note HNO ID: [id number] Author: LIZETH GLEASON RN Service: ? Author Type: Registered Nurse Type: Progress Notes Filed: 11/26/2024 08:12 Note Text: Received anatomy scan report from [facility]. [facility] Scan on 11/25/2024 5:10 PM by ProviderNiranjan PA-C: Anatomy [facility] 11-26-2024 History of Presen t illness Narrative Received anatomy scan report from [facility]. Copy sent to L&D. Scan on 11/25/2024 5:10 PM by ProviderNiranjan PA-C: Anatomy documented in this encounter [facility] 11-16-2024 Telephone encounter Note Order faxed [facility] 11-16-2024 Miscellaneous Notes Order faxed 21w0d Patient would like to have her anatomy US at [facility]. Please file pending order. The ones we have on file are for 12-13 weeks. Thank you. We will then fax it for patient. Lizeth Gleason RN documented in this encounter [facility] 11-16-2024 Telephone encounter Note Patient sent Mychart message with [employer]'s fax number. Lizeth Gleason RN [facility] 11-16-2024 Miscellaneous Notes Patient sent Mychart message with [employer]'s fax number. Lizeth Gleason RN 20w6d Patient's anatomy US on 11/23 was only scheduled for 30 min. Our next 60 min opening is 11/30/24. Patient may want to have her anatomy at [place] if they have a sooner visit. If so, she will send us a Mychart message with their fax number. Otherwise she will schedule in our office. Patient lives an hour away and has transportation issues. Advised that we could direct to our social worker masters for transportation resources. Patient states her mom's friend offered to drive her. Lizeth Gleason RN documented in this encounter [facility] 11-16-2024 Telephone encounter Note 21w0d Patient would like to have her anatomy US at [facility]. Please file pending order. The ones we have on file are for 12-13 weeks. Thank you. We will then fax it for patient. Lizeth Gleason RN [facility] 11-15-2024 Telephone encounter Note 20w6d Patient's anatomy US on 11/23 was only scheduled for 30 min. Our next 60 min opening is 11/30/24. Patient may want to have her anatomy at [place] if they have a sooner visit. If so, she will send us a [employer] message with their fax number. Otherwise she will schedule in our office. Patient lives an hour away and has transportation issues. Advised that we could direct to our social worker masters for transportation resources. Patient states her mom's friend offered to drive her. Lizeth Gleason RN [facility] 10-18-2024 Telephone encounter Note I am sorry [...] a visit. Thank you, Lidia Raza APRN.CNM [facility] 10-18-2024 Miscellaneous Notes I am sorry but [...] APRN.CNM 16w6d Patient's mother calling for patient. [facility] patient is requesting letter stating that she is unable to work d/t cardiac history and . She has been so exhausted and sleeping constantly that she has not been working, does not have a job. 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 She did not discuss this at visit last week. Next visit is 11/10/24. Val Liu RN documented in this encounter [facility] 10-18-2024 Telephone encounter Note 16w6d Patient's mother calling for patient. [facility] patient is requesting letter stating that she is unable to work d/t cardiac history and . She has been so exhausted and sleeping constantly that she has not been working, does not have a job. 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 She did not discuss this at visit last week. Next visit is 11/10/24. Val Liu RN [facility] 10-15-2024 Telephone encounter Note Noted. Thanks! Stefanie Campbell MD [facility] 10-15-2024 Miscellaneous Notes Noted. Thanks! Stefanie Campbell MD Patient called back and states she is currently taking Metoprolol 50 mg BID. Patient states she is scheduled for her echocardiogram on 10/27 at [facility]. Pina Perea RN Attempted to contact patient but no answer and unable to leave a message as voicemail box is full. MyChart message sent. Pina Perea RN Please call patient and confirm her metoprolol dose. Also recommended an echo. Is she getting that at [facility] or can I order it at [facility]? Thanks! Stefanie Campbell MD documented in this encounter [facility] 10-15-2024 Telephone encounter Note Patient called back and states she is currently taking Metoprolol 50 mg BID. Patient states she is scheduled for her echocardiogram on 10/27 at [facility]. Pina Perea RN [facility] 10-15-2024 Telephone encounter Note Attempted to contact patient but no answer and unable to leave a message as voicemail box is full. MyChart message sent. Pina Perea RN [facility] 10-15-2024 Telephone encounter Note Please call patient and confirm her metoprolol dose. Also recommended an echo. Is she getting that at [facility] or can I order it at [facility]? Thanks! Stefanie Campbell MD [facility] 10-14-2024 Progress note Formatting of t his [...] CULTURE, URINE Tachycardia Patient saw cardiology at [facility]. She is on metoprolol 50mg bid. Also maternal echo recommended. Patient aware of risks or metoprolol in . Anatomy US scheduled Stefanie Campbell MD [facility] 10-14-2024 Miscellaneous Notes KJ - S: López denies LOF, contractions or vaginal bleeding. O: 16w2d, see flow sheet SENSITIVE EXAM: Sensitive exam not performed. A/P: Assessment & Plan 16 weeks gestation of Supervision of high risk in second trimester UTI (urinary tract infection) in , antepartum Orders: BACTERIAL CULTURE, URINE Tachycardia Patient saw cardiology at [facility]. She is on metoprolol 50mg bid. Also maternal echo recommended. Patient aware of risks or metoprolol in . Anatomy US scheduled Stefanie Campbell MD documented in this encounter [facility] 10-14-2024 Instructions Deb Weiss MA - 10/14/2024 1:41 PM EST SEQUENTIAL SCREENINGS The [facility] offers sequential screenings for women who are [...] It will require an appointment with our metallurgical engineering technician. This is not an ultrasound performed [...] the above symptoms, contact our office at [phone] and ask to speak with a nurse. After hours, you can call doctors registry at [phone] OR call [facility] at [phone] and ask to have the doctor manager relationship paged. If you consider this an emergency, dial 9--2 or go to your nearest emergency department. NEED HELP? Are you dealing with a violent or abusive relationship? Are you a victim of rape or sexual assult? Call [facility] ([place]) 24 hour Crisis Hotline: 846.914.8837 or 787-005-3194. MANUAL Your Guide to a Healthy manual is now on-line. Visit [email or web address] ancyGuide to download your free copy documented in this encounter [facility] 10-06-2024 Telephone encounter Note Patient notified and was told to get labs drawn at [facility] 10-06-2024 Miscellaneous Notes Patient notified and was told to get labs drawn at [facility] The patient was supposed to get a first trimester early anatomy Ultrasound/NST. At her visit we discussed getting US within 1-2 wks of her visit. She is past this at this time and would recommend just waiting till 19-20 weeks for formal US. Lidia Raza APRN.CNM Ob patient is 15w1d and called stating that she is scheduled for an ultrasound tomorrow at [facility]. Patient thought the order was for an anatomy ultrasound. Is this an early anatomy ultrasound? Patient cancelled nuchal ultrasound on 09/27/2024 that was scheduled here and order was faxed to [facility] and they scheduled patient for tomorrow. Please advise if patient should cancel ultrasound for tomorrow? documented in this encounter [facility] 10-06-2024 Telephone encounter Note The patient was supposed to get a first trimester early anatomy Ultrasound/NST. At her visit we discussed getting US within 1-2 wks of her visit. She is past this at this time and would recommend just waiting till 19-20 weeks for formal US. Lidia Raza APRN.CNM [facility] 10-06-2024 Telephone encounter Note Ob patient is 15w1d and called stating that she is scheduled for an ultrasound tomorrow at [facility]. Patient thought the order was for an anatomy ultrasound. Is this an early anatomy ultrasound? Patient cancelled nuchal ultrasound on 09/27/2024 that was scheduled here and order was faxed to [facility] and they scheduled patient for tomorrow. Please advise if patient should cancel ultrasound for tomorrow? [facility] 09-30-2024 Telephone encounter Note Patient notified and voiced understanding. Lab order faxed to [facility]. Pina Perea RN [facility] 09-30-2024 Miscellaneous Notes Patient notified and voiced understanding. Lab order faxed to [facility]. Pina Perea RN See Pt's mychart message on telephone note from 09/24/24. Please sign [id number] order as current order in chart-status is pending future. Once filed, will print and fax order to [facility] and contact Pt. Responded to Pt's [employer] message informing her BLADIMIR does not return to office until Friday. Lillian Avilez RN Pt notified, lab and US orders faxed to [facility]. Pt does want [id number] and interested in knowing gender. Unsure if [facility] does this-Pt is going to call and check and will let office know. Pt also advised to call [facility] to get lab and US appt scheduled for this week and keep OB appt scheduled for 10/12/24. Pt voiced understanding. Lillian Avilez RN It will not be a nuchal but early anatomy US. I would recommend here but if unable to get in the next week can get at [facility], fax order and recommend within the week. [...] Lidia Raza APRN.CNM 13w6d Pt went to [facility] 09/24/24 as advised. US of abdomen completed. [...] asking if Nuchal can be done at [facility]. Pt's next OB appt is currently scheduled 10/12/24. Do you want her scheduled next week, instead of 10/12/24? And is Nuchal able to be completed at ? Please advise. Lillian Avilez RN documented in this encounter [facility] 09-29-2024 Telephone encounter Note See Pt's [employer] message on telephone note from 09/24/24. Please sign [id number] order as current order in chart-status is pending future. Once filed, will print and fax order to [facility] and contact Pt. Responded to Pt's [employer] message informing her BLADIMIR does not return to office until Friday. Lillian Avilez RN [facility] 09-27-2024 Telephone encounter Note Pt notified, lab and US orders faxed to [facility]. Pt does want [id number] and interested in knowing gender. Unsure if [facility] does this-Pt is going to call and check and will let office know. Pt also advised to call [facility] to get lab and US appt scheduled for this week and keep OB appt scheduled for 10/12/24. Pt voiced understanding. Lillian Avilez RN [facility] 09-27-2024 Telephone encounter Note It will not [...] if she wanted NIPT. Lidia Raza APRN.CNM [facility] 09-27-2024 Telephone encounter Note 13w6d Pt went to [facility] 09/24/24 as advised. US of abdomen completed. [...] asking if Nuchal can be done at [facility]. Pt's next OB appt is currently scheduled 10/12/24. Do you want her scheduled next week, instead of 10/12/24? And is Nuchal able to be completed at ? Please advise. Lillian Avilez RN [facility] 09-24-2024 Note Discharge Instructio ns Discharge Summary [facility] [address] [place] [address] [id number] 09/24/2024 Patient: LÓPEZ BRAVO Sex: Female : 2000 Age: 24y Thank you for visiting [facility]. You have been evaluated today by [...] or vomiting. Follow-up: Follow up with an bridge repair crew person in three days as scheduled. Reason for referral: evaluation and treatment. Summary of care provided to patient and family. 1 of 6 Discharge Instructions Understanding of the discharge instructions verbalized by patient and family. You have been given the following additional information: Bladder Infection, Female (Adult) Patient Signature Facility Replanter Date/Time General Instructions with ExitWriter [facility] [address] [place] [address] [phone] 09/24/2024 Patient: LÓPEZ BRAVO Sex: Female : 2000 Age: 24y Thank you for visiting [facility]. You have been evaluated today by [...] or vomiting. Follow-up: Follow up with an bridge repair crew person in three days as scheduled. Reason for [...] bone. Cloudy urin (more content not included)... [facility] 09-24-2024 Telephone encounter Note Pt's mother calls-advised [...] going to [facility]. Lillian Avilez RN [facility] 09-24-2024 Miscellaneous Notes Pt's mother calls-advised her [...] stated Pt would be going to [facility]. Lillian Avilez RN Attempted to contact patient. [...] Val Liu RN documented in this encounter [facility] 09-24-2024 Telephone encounter Note Attempted to contact patient. No answer and unable to leave a message. Lizeth Gleason RN [facility] 09-24-2024 Telephone encounter Note Sounds like she might have a kidney stone or the start of pyelo. Any fevers? Keflex is susceptible on culture results. A different antibiotic probable won't stay down either. She may need IV hydration and IV/IM antibiotics. I'd recommend ED if she's willing. [facility] Work Phone: 09-24-2024 Telephone encounter [...] try a different antibiotic? Val Liu RN [facility] 09-20-2024 Telephone encounter Note Talked to patient and advised monistat is safe in . Discussed labs will be done at next visit and to call to schedule pcn allergy testing. Val Liu RN [facility] 09-20-2024 Miscellaneous Notes Talked to patient and advised monistat is safe in . Discussed labs will be done at next visit and to call to schedule pcn allergy testing. Val Liu RN documented in this encounter [facility] 09-17-2024 Telephone encounter Note Records placed in scanning. Lillian Avilez RN [facility] 09-17-2024 Miscellaneous Notes Records placed in scanning. [...] displeased with the care she received from [facility], specifically Dr. Larry. She felt like she was not being listened to, said he seemed to be slightly argumentative with her mother and boyfriend, and just overall was not kind. She States he has continued her aspirin, Pepcid, and has decreased her Metoprolol to 50mg in the morning and 50mg at night. Apologized to patient for her experience with [facility] and advised her to talk to [facility] if she felt she was dissatisfied with her care. Called [facility] and records will be faxed to our office. Lillian Avilez RN Images from the original note were not included. Lidia Raza APRN.CNM [facility] Ob-Backrest Assembler Pool Patient seen at [facility] yesterday. Can we please request records. I asked patient to request them to be sent but just want to make sure we get them. Thank you, Lidia Raza APRN.CNM documented in this encounter [facility] 09-16-2024 Telephone encounter Note Thank you, I will review at this time. Lidia Raza APRN.CNM [facility] 09-16-2024 Telephone encounter Note Cardiology records received from visit on 09/15/24 and placed in [facility] inbox for review. Lillian Avilez RN [facility] 09-16-2024 Telephone encounter Note Called Pt to see if she had requested records be sent to our office after cardiology visit yesterday. Pt stated she did. Pt then began to elaborate how she was so pleased with the kindness of our office, but was very displeased with the care she received from [facility], specifically Dr. Larry. She felt like she was not being listened to, said he seemed to be slightly argumentative with her mother and boyfriend, and just overall was not kind. She States he has continued her aspirin, Pepcid, and has decreased her Metoprolol to 50mg in the morning and 50mg at night. Apologized to patient for her experience with [facility] and advised her to talk to [facility] if she felt she was dissatisfied with her care. Called [facility] and records will be faxed to our office. Lillian Avilez RN [facility] 09-16-2024 Telephone encounter Note Images from the original note were not included. Lidia Raza APRN.CNM P tr Ob-Backrest Assembler Pool Patient seen at [facility] yesterday. Can we please request records. I asked patient to request them to be sent but just want to make sure we get them. Thank you, Lidia Raza APRN.CNM [facility] 09-16-2024 Progress note Formatting of t his note might be different from the original. NOB today. See progress note. Referral to endocrinology and cardiology. UTI, awaiting urine cultures and will treat. Repeat urine culture at next visit. Lidia Raza APRN.CNM [facility] 09-16-2024 Miscellaneous Notes NOB today. See progress note. Referral to endocrinology and cardiology. UTI, awaiting urine cultures and will treat. Repeat urine culture at next visit. Lidia Raza APRN.CNM documented in this encounter [facility] 09-16-2024 Telephone encounter Note 1st risk assessment form submitted 09/16/24 Jeffery Garza RN [facility] 09-16-2024 Miscellaneous Notes 1st risk assessment form submitted 09/16/24 Jeffery Garza RN documented in this encounter [facility] 09-15-2024 History of Presen t illness Narrative OB point of care ultrasound was performed. See imaging tab for details. Nicole Villeda MA Display Decorator offered: Patient declines. INITIAL OB ASSESSMENT HPI: [...] Partner: Name: Sharath Age: 31 Occupation: on [employer] Gender: Male PAST MEDICAL HISTORY Diagnosis Date [...] discussed with the Patient or Patient's Authorized Replanter. As applicable, any other physician, advance practice provider, medical student, or other health professional student that will be observing or involved in the sensitive examination for educational or training purposes was discussed with the Patient or Authorized Replanter. The Patient or Authorized Replanter has agreed to proceed with the sensitive [...] Lidia Raza APRN.CNM documented in this encounter [facility] 09-15-2024 Note HNO ID: [id number] Author: NICOLE VILLEDA MA Service: ? Author Type: Technical Operations Specialist Type: Progress Notes Filed: 09/16/2024 09:26 Note Text: OB point of care ultrasound was performed. See imaging tab for details. Nicole Villeda [facility] 09-15-2024 Note HNO ID: [id number] Author: LIDIA RAZA APRN.MIRIAM Service: ? Author Type: Chief Innovation Officer Type: Progress Notes Filed: 09/16/2024 09:26 Note Text: Display Decorator offered: Patient declines. INITIAL OB ASSESSMENT HPI: [...] Partner: Name: Sharath Age: 31 Occupation: on [employer] Gender: Male PAST MEDICAL HISTORY Diagnosis Date [...] discussed with the Patient or Patient's Authorized Replanter. As applicable, any other physician, advance practice provider, medical student, or other health professional student t (more content not included)... [facility] 09-15-2024 Instructions Lidia Raza APRN.CNM - 09/15/2024 12:52 PM EST Please select the following link to access the [facility] Your Guide to a Healthy . [email or web address] Start Aspirin 81mg by mouth once daily Foods to avoid in : High-Mercury Fish. Mercury is a highly toxic element found in high concentrations in fish (ie. Tuna,swordfish,lesa Mackerel, orange roughy,shark). However, low -mercury fish, like [place], tilapia, cod, and fresh water trout can [...] Processed junk food documented in this encounter [facility] 09-14-2024 Note HNO ID: [id number] Author: LIZETH GLEASON RN Service: ? Author Type: Registered Nurse Type: Progress Notes Filed: 09/14/2024 16:45 Note Text: Received office notes. Placed in chart prep binder. Lizeth Gleason RN [facility] 09-14-2024 History of Presen t illness Narrative Received office notes. Placed in chart prep binder. Lizeth Gleason RN Received lab results from [facility], but no office records from her visit. Patient has a cardiac hx. Left detailed voicemail asking for office notes too. Labs placed in chart prep binder. Lizeth Gleason RN documented in this encounter [facility] 09-14-2024 Note HNO ID: [id number] Author: LIZETH GLEASON RN Service: ? Author Type: Registered Nurse Type: Progress Notes Filed: 09/14/2024 15:52 Note Text: Received lab results from [facility], but no office records from her visit. Patient has a cardiac hx. Left detailed voicemail asking for office notes too. Labs placed in chart prep binder. Lizeth Gleason RN [facility] 09-13-2024 Telephone encounter Note Patient called. Angela not available at this time. Asked patient to come in 30 min prior and to request her records from [facility]. Lizeth Gleason RN [facility] 09-13-2024 Miscellaneous Notes Patient called. Angela not available at this time. Asked patient to come in 30 min prior and to request her records from [facility]. Lizeth Gleason RN Attempted to contact patient to go over new ob intake. No answer. Voicemail was full. Unable to leave message.Angela Marshall MA documented in this encounter [facility] 09-13-2024 Telephone encounter Note Attempted to contact patient to go over new ob intake. No answer. Voicemail was full. Unable to leave message.Angela Marshall MA [facility] 09-02-2024 Telephone encounter Note Patient has appointment with [facility] on 09/15/2024 at 3:45 pm. [facility] 09-02-2024 Miscellaneous Notes Patient has appointment with [facility] on 09/15/2024 at 3:45 pm. Attempted to contact patient but no answer and unable to leave as message as voicemail box is full. Will attempt to contact patient again later. Pina Perea RN We cannot sexual assault counsellor her w/o cardio records. We can try to get her in w/ a [facility] brick setter operator but will be out of town or can go to [place] at [facility]. Please provide her w/ a number. She [...] taking a Beta Juan. Patient had a brick setter operator in [place] (last seen in Mar) and one in [place] 2 years ago. Prefers not to go back to them because she wants to see a brick setter operator who listens to her. She thinks that [facility] was going to refer her to [place]. Encouraged patient to call [facility] and to schedule with a brick setter operator. Inquired if patient is wanting to terminate. She said only if her heart can't take a . Should we add patient to on Friday to meet with patient to establish care before her NOB? Lizeth Gleason RN Patient calling in asking for patient to be seen by OB-STRAP SETTER. Patient is not sure if she should have an or not. She met with her PCP yesterday at [facility] and he suggested that she see us and make an appointment with a brick setter operator as soon as possible since she has [...] 2024 1:27 PM documented in this encounter [facility] 09-02-2024 Telephone encounter Note Attempted to contact patient but no answer and unable to leave as message as voicemail box is full. Will attempt to contact patient again later. Pina Perea RN [facility] 09-01-2024 Telephone encounter Note We cannot sexual assault counsellor her w/o cardio records. We can try to get her in w/ a [facility] brick setter operator but will be out of town or can go to [place] at [facility]. Please provide her w/ a number. She does not need a consult to be sent over but we can send one so they send us the information if needed. Ok to come to first ob to confirm viability and we can request records. if she can get them requested ahead of time that would be great. Albert Swift MD [facility] Work Phone: 09-01-2024 Telephone encounter Note Called and spoke with patient regarding the message below. New [facility] patient. LMP 11/12. Approximately 10w1d. Found out she was on Aug 11. 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 Patient is taking a Beta Juan. Patient had a brick setter operator in [place] (last seen in Mar) and one in [place] 2 years ago. Prefers not to go back to them because she wants to see a brick setter operator who listens to her. She thinks that [facility] was going to refer her to [place]. Encouraged patient to call [facility] and to schedule with a brick setter operator. Inquired if patient is wanting to terminate. She said only if her heart can't take a . Should we add patient to on Friday to meet with patient to establish care before her NOB? Lizeth Gleason RN [facility] 09-01-2024 Telephone encounter Note Patient calling in asking for patient to be seen by OB-STRAP SETTER. Patient is not sure if she should have an or not. She met with her PCP yesterday at [facility] and he suggested that she see us and make an appointment with a brick setter operator as soon as possible since she has [...] Libertad Hernandez September 01, 2024 1:27 PM [facility] 08-19-2024 Telephone encounter Note Central Scheduling, Jaky left VM on PEAC line with pt's information requesting a call back in regards to pt wanting elective IAB. Called pt's number and ULVM due to it being full. Unable to send MCM with resources since MyChart is not active. Thank you, Delilah Payne LPN [facility] 08-19-2024 Miscellaneous Notes Central SchedulingJaky left VM on PEAC line with pt's information requesting a call back in regards to pt wanting elective IAB. Called pt's number and ULVM due to it being full. Unable to send MCM with resources since MyChart is not active. Thank you, Delilah Payne LPN documented in this encounter [facility] Evaluation note Diagnosis with uncertain dates, antepartum- [...] genitourinary tract antepartum [facility] Diagnosis Penicillin allergy- Primary Personal history of allergy to penicillin Supervision of high risk in second trimester Unspecified high-risk Type 1 diabetes mellitus affecting , antepartum 12 weeks gestation of state, incidental [facility] Encounter for screening of mother- Primary Unspecified screening documented in this encounter [facility] note* Diagnosis 16 weeks gestation of - [...] ESTAssociated Problem(s): Tachycardia Patient saw cardiology at [facility]. She is on metoprolol 50mg bid. Also maternal echo recommended. Patient aware of risks or metoprolol in . Anatomy US scheduled documented in this encounter [facility] note* Diagnosis 16 weeks gestation of (HCC)- Primary state, incidental Supervision of high risk in second trimester ([facility]) Unspecified high-risk UTI (urinary tract infection) in , antepartum ([facility]) Infections of genitourinary tract antepartum Tachycardia Tachycardia, unspecified Encounter for anatomic survey ([facility])- Primary Encounter for anatomic survey documented in this encounter [facility] note* Diagnosis 16 weeks gestation of (HCC)- Primary state, incidental Supervision of high risk in second trimester (HCC) Unspecified high-risk UTI (urinary tract infection) in , antepartum ([facility]) Infections of genitourinary tract antepartum Tachycardia Tachycardia, unspecified Transportation insecurity- Primary documented in this encounter [facility] note* Diagnosis 16 weeks gestation of ([facility])- Primary state, incidental Supervision of high risk in second trimester ([facility]) Unspecified high-risk UTI (urinary tract infection) in , antepartum ([facility]) Infections of genitourinary tract antepartum Tachycardia Tachycardia, unspecified 25 weeks gestation of ([facility])- Primary state, incidental Screening for diabetes mellitus Supervision of high risk in second trimester ([facility]) Unspecified high-risk Transportation insecurity Tachycardia Tachycardia, unspecified Penicillin allergy Personal history of allergy to penicillin [facility] Diagnosis 16 weeks gestation of ([facility])- Primary state, incidental Supervision of high risk in second trimester ([facility]) Unspecified high-risk UTI (urinary tract infection) in , antepartum ([facility]) Infections of genitourinary tract antepartum Tachycardia Tachycardia, unspecified Encounter for anatomic survey ([facility])- Primary Encounter for anatomic survey Late care affecting , antepartum ([facility]) 25 weeks gestation of ([facility]) state, incidental documented in this encounter [facility] note* Diagnosis 16 weeks gestation of ([facility])- Primary state, incidental Supervision of high risk in second trimester ([facility]) Unspecified high-risk UTI (urinary tract infection) in , antepartum ([facility]) Infections of genitourinary tract antepartum Tachycardia Tachycardia, unspecified Adverse effect of drug, initial encounter- Primary Allergy to penicillin Personal history of allergy to penicillin [facility] Diagnosis 16 weeks gestation of ([facility])- Primary state, incidental Supervision of high risk in second trimester ([facility]) Unspecified high-risk UTI (urinary tract infection) in , antepartum ([facility]) Infections of genitourinary tract antepartum Tachycardia Tachycardia, unspecified Supervision of high risk in third trimester ([facility])- Primary Unspecified high-risk 28 weeks gestation of ([facility]) state, incidental documented in this encounter [facility] note* Diagnosis 16 weeks gestation of ([facility])- Primary state, incidental Supervision of high risk in second trimester ([facility]) Unspecified high-risk UTI (urinary tract infection) in , antepartum ([facility]) Infections of genitourinary tract antepartum Tachycardia Tachycardia, unspecified Gestational diabetes mellitus (GDM) in third trimester, gestational diabetes method of control unspecified ([facility])- Primary documented in this encounter [facility] note* Diagnosis 16 weeks gestation of ([facility])- Primary state, incidental Supervision of high risk in second trimester ([facility]) Unspecified high-risk UTI (urinary tract infection) in , antepartum ([facility]) Infections of genitourinary tract antepartum Tachycardia Tachycardia, unspecified Hypothyroidism, unspecified type documented in this encounter [facility] note* Diagnosis 16 weeks gestation of ([facility])- Primary state, incidental Supervision of high risk in second trimester ([facility]) Unspecified high-risk UTI (urinary tract infection) in , antepartum ([facility]) Infections of genitourinary tract antepartum Tachycardia Tachycardia, unspecified Supervision of high risk in third trimester ([facility])- Primary Unspecified high-risk 30 weeks gestation of ([facility]) state, incidental Hypothyroidism, unspecified type Tachycardia Tachycardia, unspecified Penicillin allergy Personal history of allergy to penicillin UTI (urinary tract infection) in , antepartum ([facility]) Infections of genitourinary tract antepartum Diet controlled gestational diabetes mellitus (GDM) in third trimester ([facility]) Abnormal ultrasound Abnormal findings on screening documented in this encounter [facility] note* Diagnosis Onset Date Resolution Status Admit Date Inappropriate sinus tachycardia acut e January 26, 2025 2:36pm [place] [employer] Work Phone: Evaluation note* Diagnosis 16 weeks gestation of ([facility])- Primary state, incidental Supervision of high risk in second trimester ([facility]) Unspecified high-risk UTI (urinary tract infection) in , antepartum ([facility]) Infections of genitourinary tract antepartum Tachycardia Tachycardia, unspecified Supervision of high risk in third trimester ([facility])- Primary Unspecified high-risk Diet controlled gestational diabetes mellitus (GDM) in third trimester ([facility]) documented in this encounter [facility] note* Diagnosis 16 weeks gestation of ([facility])- Primary state, incidental Supervision of high risk in second trimester ([facility]) Unspecified high-risk UTI (urinary tract infection) in , antepartum ([facility]) Infections of genitourinary tract antepartum Tachycardia Tachycardia, unspecified Diet controlled gestational diabetes mellitus (GDM) in third trimester ([facility])- Primary Gestational diabetes mellitus (GDM) in third trimester, gestational diabetes method of control unspecified ([facility]) documented in this encounter [facility] note* Diagnosis 16 weeks gestation of (HCC)- Primary state, incidental Supervision of high risk in second trimester ([facility]) Unspecified high-risk UTI (urinary tract infection) in , antepartum ([facility]) Infections of genitourinary tract antepartum Tachycardia Tachycardia, unspecified Dietary counseling- Primary Dietary surveillance and counseling Gestational diabetes mellitus (GDM) in third trimester, gestational diabetes method of control unspecified ([facility]) documented in this encounter [facility] note* Diagnosis 16 weeks gestation of ([facility])- Primary state, incidental Supervision of high risk in second trimester ([facility]) Unspecified high-risk UTI (urinary tract infection) in , antepartum ([facility]) Infections of genitourinary tract antepartum Tachycardia Tachycardia, unspecified Supervision of high risk in third trimester ([facility])- Primary Unspecified high-risk Diet controlled gestational diabetes mellitus (GDM) in third trimester ([facility]) Hypothyroidism, unspecified type Penicillin allergy Personal history of allergy to penicillin 35 weeks gestation of ([facility]) state, incidental documented in this encounter [facility] note* Diagnosis 16 weeks gestation of ([facility])- Primary state, incidental Supervision of high risk in second trimester ([facility]) Unspecified high-risk UTI (urinary tract infection) in , antepartum ([facility]) Infections of genitourinary tract antepartum Tachycardia Tachycardia, unspecified Adverse effect of drug, subsequent encounter- Primary Allergy to penicillin Personal history of allergy to penicillin documented in this encounter [facility] note* Diagnosis 16 weeks gestation of ([facility])- Primary state, incidental Supervision of high risk in second trimester ([facility]) Unspecified high-risk UTI (urinary tract infection) in , antepartum ([facility]) Infections of genitourinary tract antepartum Tachycardia Tachycardia, unspecified Supervision of high risk in third trimester ([facility])- Primary Unspecified high-risk Diet controlled gestational diabetes mellitus (GDM) in third trimester ([facility]) Hypothyroidism, unspecified type * Assessment & Plan Note - Albert Swift MD - 03/03/2025 2:49 PM EDT Associated Problem(s): Diet controlled gestational diabetes mellitus (GDM) in third trimester ([facility]) US today, final report pending. BS log reviewed, excellent control Orders: URINE OB DIP B/O documented in this encounter [facility] note* Diagnosis 16 weeks gestation of (HCC)- Primary state, incidental Supervision of high risk in second trimester ([facility]) Unspecified high-risk UTI (urinary tract infection) in , antepartum ([facility]) Infections of genitourinary tract antepartum Tachycardia Tachycardia, unspecified Diet controlled gestational diabetes mellitus (GDM) in third trimester ([facility])- Primary with uncertain dates, antepartum ([facility]) state, incidental Supervision of high risk in third trimester ([facility])- Primary Unspecified high-risk Diet controlled gestational diabetes mellitus (GDM) in third trimester ([facility]) Hypothyroidism, unspecified type documented in this encounter [facility] note* Diagnosis 16 weeks gestation of ([facility])- Primary state, incidental Supervision of high risk in second trimester ([facility]) Unspecified high-risk UTI (urinary tract infection) in , antepartum ([facility]) Infections of genitourinary tract antepartum Tachycardia Tachycardia, unspecified Elevated glucose- Primary Other abnormal glucose Supervision of high risk in third trimester ([facility])- Primary Unspecified high-risk Diet controlled gestational diabetes mellitus (GDM) in third trimester ([facility]) Hypothyroidism, unspecified type documented in this encounter [facility] note* Diagnosis 16 weeks gestation of ([facility])- Primary state, incidental Supervision of high risk in second trimester ([facility]) Unspecified high-risk UTI (urinary tract infection) in , antepartum ([facility]) Infections of genitourinary tract antepartum Tachycardia Tachycardia, unspecified Supervision of high risk in third trimester ([facility])- Primary Unspecified high-risk Diet controlled gestational diabetes mellitus (GDM) in third trimester ([facility]) Hypothyroidism, unspecified type Supervision of high risk in third trimester ([facility])- Primary Unspecified high-risk 37 weeks gestation of ([facility]) state, incidental Diet controlled gestational diabetes mellitus (GDM) in third trimester ([facility]) Hypothyroidism, unspecified type documented in this encounter [facility] note* Diagnosis 16 weeks gestation of ([facility])- Primary state, incidental Supervision of high [...] trimester (HCC)- Primary 39 weeks gestation of ([facility]) state, incidental Group B Streptococcus carrier, antepartum (HCC) Other current maternal conditions classifiable elsewhere, antepartum Supervision of high risk in third trimester (HCC) Unspecified high-risk [facility]No reason for referral information availableSt. [facility] Work Phone: Reason for Referral Specialty Diagnoses / Procedures Referred By Yazan barger Referred To Contact Endocrinology Diagnoses Hypothyroidism, unspecified type Procedures CONSULT TO ENDOCRINOLOGY OFFICE/OUTPATIENT [facility] 60 MINUTES Lidia Raza APRN.CNM [address] [place] [address] Referral ID Status Reason Start Date Expiration Date Visits Requested Visits Authorized [id number] Authorized PCP Requested Referral 09/15/2024 09/15/2025 1 1 Specialty Diagnoses / Procedures Referred By Yazan barger Referred To Contact [facility] Diagnoses with uncertain dates, antepartum Procedures OBSTETRIC ULTRASOUND WHI US PREG UTERUS AFTER 1ST TRIMEST 1 GESTATION Lidia Raza APRN.CNM [address] [place] [address] [facility] [address] [place] [address] Referral ID Status Reason Start Date Expiration Date Visits Requested Visits Authorized [id number] Authorized Auto-Generat ed Referral 09/15/2024 09/15/2025 1 1 Referral ID Status Reason Start Date Expiration Date Visits Requested Visits Authorized [id number] Authorized Auto-Generat ed Referral 09/15/2024 09/15/2025 1 [...] or prosecute any alcohol or drug abuse patient.[facility] HospitalIn the event this information is protected by the Federal Confidentiality of Alcohol and Drug Abuse Patient Records regulations: The Federal rules restrict any use of the information to criminally investigate or prosecute any alcohol or drug abuse patient.[facility] HospitalIn the event this information is protected by the Federal Confidentiality of Alcohol and Drug Abuse Patient Records regulations: The Federal rules restrict any use of the information to criminally investigate or prosecute any alcohol or drug abuse patient.[facility] HospitalIn the event this information is protected by the Federal Confidentiality of Alcohol and Drug Abuse Patient Records regulations: The Federal rules restrict any use of the information to criminally investigate or prosecute any alcohol or drug abuse patient.[facility] HospitalIn the event this information is protected by the Federal Confidentiality of Alcohol and Drug Abuse Patient Records regulations: The Federal rules restrict any use of the information to criminally investigate or prosecute any alcohol or drug abuse patient.[facility] HospitalIn the event this information is protected by the Federal Confidentiality of Alcohol and Drug Abuse Patient Records regulations: The Federal rules restrict any use of the information to criminally investigate or prosecute any alcohol or drug abuse patient.[facility] HospitalIn the event this information is protected by the Federal Confidentiality of Alcohol and Drug Abuse Patient Records regulations: The Federal rules restrict any use of the information to criminally investigate or prosecute any alcohol or drug abuse patient.[facility] HospitalIn the event this information is protected by the Federal Confidentiality of Alcohol and Drug Abuse Patient Records regulations: The Federal rules restrict any use of the information to criminally investigate or prosecute any alcohol or drug abuse patient.[facility] HospitalIn the event this information is protected by the Federal Confidentiality of Alcohol and Drug Abuse Patient Records regulations: The Federal rules restrict any use of the information to criminally investigate or prosecute any alcohol or drug abuse patient.[facility] HospitalIn the event this information is protected by the Federal Confidentiality of Alcohol and Drug Abuse Patient Records regulations: The Federal rules restrict any use of the information to criminally investigate or prosecute any alcohol or drug abuse patient.[facility] HospitalIn the event this information is protected by the Federal Confidentiality of Alcohol and Drug Abuse Patient Records regulations: The Federal rules restrict any use of the information to criminally investigate or prosecute any alcohol or drug abuse patient.[facility] HospitalIn the event this information is protected by the Federal Confidentiality of Alcohol and Drug Abuse Patient Records regulations: The Federal rules restrict any use of the information to criminally investigate or prosecute any alcohol or drug abuse patient.[facility] HospitalIn the event this information is protected by the Federal Confidentiality of Alcohol and Drug Abuse Patient Records regulations: The Federal rules restrict any use of the information to criminally investigate or prosecute any alcohol or drug abuse patient.[facility] HospitalIn the event this information is protected by the Federal Confidentiality of Alcohol and Drug Abuse Patient Records regulations: The Federal rules restrict any use of the information to criminally investigate or prosecute any alcohol or drug abuse patient.[facility] HospitalIn the event this information is protected by the Federal Confidentiality of Alcohol and Drug Abuse Patient Records regulations: The Federal rules restrict any use of the information to criminally investigate or prosecute any alcohol or drug abuse patient.[facility] HospitalIn the event this information is protected by the Federal Confidentiality of Alcohol and Drug Abuse Patient Records regulations: The Federal rules restrict any use of the information to criminally investigate or prosecute any alcohol or drug abuse patient.[facility] HospitalIn the event this information is protected by the Federal Confidentiality of Alcohol and Drug Abuse Patient Records regulations: The Federal rules restrict any use of the information to criminally investigate or prosecute any alcohol or drug abuse patient.[facility] HospitalIn the event this information is protected by the Federal Confidentiality of Alcohol and Drug Abuse Patient Records regulations: The Federal rules restrict any use of the information to criminally investigate or prosecute any alcohol or drug abuse patient.[facility] HospitalIn the event this information is protected by the Federal Confidentiality of Alcohol and Drug Abuse Patient Records regulations: The Federal rules restrict any use of the information to criminally investigate or prosecute any alcohol or drug abuse patient.[facility] HospitalIn the event this information is protected by the Federal Confidentiality of Alcohol and Drug Abuse Patient Records regulations: The Federal rules restrict any use of the information to criminally investigate or prosecute any alcohol or drug abuse patient.[facility] HospitalIn the event this information is protected by the Federal Confidentiality of Alcohol and Drug Abuse Patient Records regulations: The Federal rules restrict any use of the information to criminally investigate or prosecute any alcohol or drug abuse patient.[facility] HospitalIn the event this information is protected by the Federal Confidentiality of Alcohol and Drug Abuse Patient Records regulations: The Federal rules restrict any use of the information to criminally investigate or prosecute any alcohol or drug abuse patient.[facility] HospitalIn the event this information is protected by the Federal Confidentiality of Alcohol and Drug Abuse Patient Records regulations: The Federal rules restrict any use of the information to criminally investigate or prosecute any alcohol or drug abuse patient.[facility] HospitalIn the event this information is protected by the Federal Confidentiality of Alcohol and Drug Abuse Patient Records regulations: The Federal rules restrict any use of the information to criminally investigate or prosecute any alcohol or drug abuse patient.[facility] HospitalIn the event this information is protected by the Federal Confidentiality of Alcohol and Drug Abuse Patient Records regulations: The Federal rules restrict any use of the information to criminally investigate or prosecute any alcohol or drug abuse patient.[facility] HospitalIn the event this information is protected by the Federal Confidentiality of Alcohol and Drug Abuse Patient Records regulations: The Federal rules restrict any use of the information to criminally investigate or prosecute any alcohol or drug abuse patient.[facility] HospitalIn the event this information is protected by the Federal Confidentiality of Alcohol and Drug Abuse Patient Records regulations: The Federal rules restrict any use of the information to criminally investigate or prosecute any alcohol or drug abuse patient.[facility] HospitalIn the event this information is protected by the Federal Confidentiality of Alcohol and Drug Abuse Patient Records regulations: The Federal rules restrict any use of the information to criminally investigate or prosecute any alcohol or drug abuse patient.[facility] HospitalIn the event this information is protected by the Federal Confidentiality of Alcohol and Drug Abuse Patient Records regulations: The Federal rules restrict any use of the information to criminally investigate or prosecute any alcohol or drug abuse patient.[facility] HospitalIn the event this information is protected by the Federal Confidentiality of Alcohol and Drug Abuse Patient Records regulations: The Federal rules restrict any use of the information to criminally investigate or prosecute any alcohol or drug abuse patient.[facility] HospitalIn the event this information is protected by the Federal Confidentiality of Alcohol and Drug Abuse Patient Records regulations: The Federal rules restrict any use of the information to criminally investigate or prosecute any alcohol or drug abuse patient.[facility] HospitalIn the event this information is protected by the Federal Confidentiality of Alcohol and Drug Abuse Patient Records regulations: The Federal rules restrict any use of the information to criminally investigate or prosecute any alcohol or drug abuse patient.[facility] HospitalIn the event this information is protected by the Federal Confidentiality of Alcohol and Drug Abuse Patient Records regulations: The Federal rules restrict any use of the information to criminally investigate or prosecute any alcohol or drug abuse patient.[facility] HospitalIn the event this information is protected by the Federal Confidentiality of Alcohol and Drug Abuse Patient Records regulations: The Federal rules restrict any use of the information to criminally investigate or prosecute any alcohol or drug abuse patient.[facility] HospitalIn the event this information is protected by the Federal Confidentiality of Alcohol and Drug Abuse Patient Records regulations: The Federal rules restrict any use of the information to criminally investigate or prosecute any alcohol or drug abuse patient.[facility] HospitalIn the event this information is protected by the Federal Confidentiality of Alcohol and Drug Abuse Patient Records regulations: The Federal rules restrict any use of the information to criminally investigate or prosecute any alcohol or drug abuse patient.[facility] HospitalIn the event this information is protected by the Federal Confidentiality of Alcohol and Drug Abuse Patient Records regulations: The Federal rules restrict any use of the information to criminally investigate or prosecute any alcohol or drug abuse patient.[facility] HospitalIn the event this information is protected by the Federal Confidentiality of Alcohol and Drug Abuse Patient Records regulations: The Federal rules restrict any use of the information to criminally investigate or prosecute any alcohol or drug abuse patient.[facility] HospitalIn the event this information is protected by the Federal Confidentiality of Alcohol and Drug Abuse Patient Records regulations: The Federal rules restrict any use of the information to criminally investigate or prosecute any alcohol or drug abuse patient.[facility] HospitalIn the event this information is protected by the Federal Confidentiality of Alcohol and Drug Abuse Patient Records regulations: The Federal rules restrict any use of the information to criminally investigate or prosecute any alcohol or drug abuse patient.[facility] HospitalIn the event this information is protected by the Federal Confidentiality of Alcohol and Drug Abuse Patient Records regulations: The Federal rules restrict any use of the information to criminally investigate or prosecute any alcohol or drug abuse patient.[facility] HospitalIn the event this information is protected by the Federal Confidentiality of Alcohol and Drug Abuse Patient Records regulations: The Federal rules restrict any use of the information to criminally investigate or prosecute any alcohol or drug abuse patient.[facility] Reason for Visit (unrecogniz ed section and [...] Referred By Contac t Referred To Contact [facility] Diagnoses Encounter for anatomic survey (HCC) Procedures OBSTETRIC ULTRASOUND WHI US PREG UTERUS AFTER 1ST TRIMEST GESTATION Albert Swift MD [address] [place] [place] [address] Phone: tel: fax: [facility] [address] [place] [address] Referral ID Status Reason Start Date Expiration Date V isits Requested Visits Authorized [id number] Closed Auto-Generate d Referral 11/17/2024 11/16/2025 1 1 Reason Comments Drug Allergy Reason Onset Date Comments Care 01/04/2025 Reason Comments Results 3 hour glucose Reason Comments Abnormal thyroid labs during Specialty Diagnoses / Procedures Referred By Contac t Referred To Contact Endocrinology Diagnoses Hypothyroidism, unspecified type Procedures CONSULT TO ENDOCRINOLOGY OFFICE/OUTPATIENT [facility] 60 MINUTES Lidia Raza APRN.CNShania [address] [place] [address] Phone: tel: fax:[phone] Referral ID Status Reason Start Date Expiration Date V isits Requested Visits Authorized [id number] Closed PCP Requested Referral 09/15/2024 09/15/2025 1 1 Reason Onset Date Comments Care 01/20/2025 Reason Onset Date Comments Care 02/02/2025 Specialty Diagnoses / Procedures Referred By Contac t Referred To Contact [facility] Diagnoses Gestational diabetes mellitus (GDM) in third trimester, gestational diabetes method of control unspecified (HCC) Procedures OBSTETRIC ULTRASOUND WHI US PREG UTERUS AFTER 1ST TRIMEST GESTATION Carolyn Richmond APRN.ESTELAM [address] [place] [place] [address] Phone: tel: fax:[phone] [address] Referral ID Status Reason Start Date Expiration Date V isits Requested Visits Authorized [id number] Closed Auto-Generate d Referral 01/18/2025 01/18/2026 5 1 Reason Comments Assessment Patient Education Specialty Diagnoses / Procedures Referred By Contac t Referred To Contact Nutrition Diagnoses Gestational diabetes mellitus (GDM) in third trimester, gestational diabetes method of control unspecified (HCC) Procedures CONSULT TO NUTRITION THERAPY MEDICAL NUTRITION ASSMT&IVNTJ INDIV EACH 15 CO Carolyn Richmond APRN.MIRIAM [address] [place] [place] [address] Phone: tel: fax:[phone] Referral ID Status Reason Start Date Expiration Date Visits Requested Visits Authorized [id number] Authorized PCP Requested Referral 01/18/2025 01/18/2026 1 4 Reason Onset Date Comments Care 02/25/2025 Reason Comments Wool Sacker - Other PRAF Reason Comments Allergy Testing, PCN Reason Onset Date Comments Care 03/03/2025 Specialty Diagnoses / Procedures Referred By Contac t Referred To Contact [facility] Diagnoses with uncertain dates, antepartum (HCC) Procedures OBSTETRIC ULTRASOUND WHI US PREG UTERUS AFTER 1ST TRIMEST GESTATION Lidia Raza APRN.MIRIAM [address] [place] [address] Phone: tel: fax:[phone] [address] Referral ID Status Reason Start Date Expiration Date V isits Requested Visits Authorized [id number] Closed Auto-Generate d Referral 09/15/2024 09/15/2025 1 1 Reason Onset Date Comments Population Health Navigation Outreach 03/15/2025 to PCP/OB Reason Onset Date Comments Care 03/11/2025 Reason Onset Date Comments Care 03/24/2025 Care Teams (unrecognized sec tion and content) [employer] Relationship Specialty Start Date End Date Doretha, Lidia, TECHNICIAN INVENTORY SPECIALIST [address] [place] [address] Family Medicine 09/15/24 [employer] Relationship Specialty Start Date End Date Lidia Coyne NP [address] [facility] [place] [address] Family Medicine 09/15/24 [employer] Relationship Specialty Start Date End Date Lidia Coyne NP [address] [place] [address] Family Medicine 09/15/24 [employer] Relationship Specialty Start Date End Date Lidia Coyne NP [address] [place] [address] Family Medicine 09/15/24 [employer] Relationship Specialty Start Date End Date Lidia Coyne NP [address] [place] [address] Family Medicine 09/15/24 [employer] Relationship Specialty Start Date End Date Lidia Coyne NP [address] [facility] [place] [address] Family Medicine 09/15/24 [employer] Relationship Specialty Start Date End Date Lidia Coyne NP [address] [place] [address] Family Medicine 09/15/24 [employer] Relationship Specialty Start Date End Date Lidia Coyne NP [address] [facility] [place] [address] Family Medicine 09/15/24 [employer] Relationship Specialty Start Date End Date Lidia Coyne NP [address] [place] [address] Family Medicine 09/15/24 [employer] Relationship Specialty Start Date End Date Lidia Coyne NP [address] [facility] [place] [address] Family Medicine 09/15/24 [employer] Relationship Specialty Start Date End Date Lidia Coyne NP [address] [facility] [place] [address] Family Medicine 09/15/24 [employer] Relationship Specialty Start Date End Date Lidia Coyne NP [address] [facility] [place] [address] Family Medicine 09/15/24 [employer] Relationship Specialty Start Date End Date Lidia Coyne NP [address] [facility] [place] [address] Family Medicine 09/15/24 [employer] Relationship Specialty Start Date End Date Lidia Coyne NP [address] [facility] [place] [address] Family Medicine 09/15/24 [employer] Relationship Specialty Start Date End Date Lidia Coyne NP [address] [facility] [place] [address] Family Medicine 09/15/24 [employer] Relationship Specialty Start Date End Date Lidia Coyne NP [address] [facility] [place] [address] Family Medicine 09/15/24 [employer] Relationship Specialty Start Date End Date Lidia Coyne NP [address] [facility] [place] [address] Family Medicine 09/15/24 [employer] Relationship Specialty Start Date End Date DorethaLidia TECHNICIAN INVENTORY SPECIALIST [address] [place] [address] Family [facility] 09/15/24 [employer] Relationship Specialty Start Date End Date DorethaLidia TECHNICIAN INVENTORY SPECIALIST [address] [place] [address] Family Medicine 09/15/24 [employer] Relationship Specialty Start Date End Date DorethaLidia TECHNICIAN INVENTORY SPECIALIST [address] [place] [address] Family [facility] 09/15/24 [employer] Relationship Specialty Start Date End Date DorethaShantellLidia, TECHNICIAN INVENTORY SPECIALIST [address] [place] [address] Family [facility] 09/15/24 Team Status: Active Member Role Status Dates Lidia Coyne VSC, TECHNICIAN INVENTORY SPECIALIST-C Primary Care Provider Activ e Team Status: Inactive Member Role Status Dates Lidia Coyne VSC, TECHNICIAN INVENTORY SPECIALIST-C Primary Care Provider Activ e Start: January 26, 2025 End: January 26, 2025 Lidia Coyne VSC, TECHNICIAN INVENTORY SPECIALIST-C Referring Provider Active Start: January 26, 2025 End: January 26, 2025 GOLDY Finley Attending Provider Active St art: January 26, 2025 End: January 26, 2025 [employer] Relationship Specialty Start Date End Date Doretha BRIDGET Murillo [address] [place] [address] Family Medicine 09/15/24 [employer] Relationship Specialty Start Date End Date Lidia Coyne NP [address] [place] [address] Family Medicine 09/15/24 [employer] Relationship Specialty Start Date End Date Lidia Coyne TECHNICIAN INVENTORY SPECIALIST [address] [place] [address] Family [facility] 09/15/24 [employer] Relationship Specialty Start Date End Date Lidia Coyne NP [address] [place] [address] Family Medicine 09/15/24 [employer] Relationship Specialty Start Date End Date Lidia Coyne NP [address] [facility] [place] [address] Family [facility] 09/15/24 [employer] Relationship Specialty Start Date End Date Lidia Coyne NP [address] [place] [address] [facility] 09/15/24 [employer] Relationship Specialty Start Date End Date Lidia Coyne NP [address] [place] [address] [facility] 09/15/24 [employer] Relationship Specialty Start Date End Date Lidia Coyne NP [address] [place] [address] [facility] 09/15/24 INFORMATION SOURCE (unrecogn ized section and content) DATE CREATED AUTHOR 01/15/2025 Dany Duong [facility] DATE CREATED AUTHOR AUTHOR'S ORGANIZ ATION 02/04/2025 [facility] DATE CREATED AUTHOR AUTHOR'S ORGANIZ ATION 03/20/2025 [facility] Goals (unrecognized section and content) Goals [...] BE BASED ON THE PRIMARY CLINICAL RECORDS. [facility] [employer] [facility]. provides no warranty or guarantee of the accuracy or completeness of information in this document.
--- NOTE | 2025-03-26 09:42 | PCM.HP.OB ---
HPI - General General Date of Admission: 03/26/25 Date of Service: 03/26/25 Chief Complaint: ROM HPI Narrative LÓPEZ WILLINGHAM, is a 24 F who presents LOF and spotting. GBS positive. Gross ROM with cervical change. Admit for labor Maternal Data Information Final HOOD: 03/29/25 Gestational age: 39+4 [facility] Medical History Asthma GERD (gastroesophageal reflux disease) Methylenetetrahydrofolate reductase deficiency Dyspnea Inappropriate sinus tachycardia Home Medications ?Medication ?Instructions ?Recorded ?Last Taken ?Type vitamins no.119-iron 1 tab PO DAILY 09/09/24 03/26/25 History fumarate 29 mg-folic acid 1 mg tablet aspirin 81 mg tablet,delayed 81 mg PO QDAY 09/15/24 Unknown History release (Adult Low Dose Aspirin) metoprolol succinate 50 mg 50 mg PO BID #120 tabs 09/15/24 Unknown Rx tablet,extended release 24 hr (Toprol XL) pantoprazole 20 mg tablet,delayed 20 mg PO QDAY 01/26/25 Unknown History release Allergy/AdvReac Type Severity Reaction Status Date / Time ranitidine Allergy Intermediate PT UNSURE Verified 03/26/25 09:10 OF REACTION Family History Sister Heart disease Surgical History No history of previous surgery Social History Smoking Status: Never smoker History 1 Elective abortions Hx Para 0 Spontaneous abortions Hx # Term Pregnancies Ectopic pregnancies Hx # Pregnancies Multiple births # of living children NST FHR Rate Baby A Baseline: 135 Variability:: Moderate Accelerations:: 15 x 15 Decelerations:: None NST Reactive:: Yes FHR Category:: Category I Uterine Activity:: q 3 ROS Constitutional Constitutional: Denies fatigue, fever(s) or malaise Eyes Eyes: Denies change in vision ENT HEENT: Denies dizziness or headache(s) Cardiovascular Cardiovascular: Denies chest pain, dyspnea or lightheadedness Respiratory/Chest Respiratory/Chest: Denies cough or dyspnea Gastrointestinal Gastrointestinal: Denies change in bowel habits Genitourinary Genitourinary: Denies burning urination or genital lesions Integumentary Integumentary: Denies rash Neurologic Neurologic: Denies confusion, dizziness, headache(s), numbness or weakness Vital Signs Vital Signs Vital Signs: 03/26/25 09:01 03/26/25 09:01 Pulse Rate 96 Blood Pressure 119/77 BP Systolic 119 BP Diastolic 77 Physical Exam Const alert and no apparent distress General Appearance: cooperative HEENT normocephalic Resp normal respiratory effort Cardio regular rate GI soft to palpation GI Narrative: gravid, nontender, appropriate for gestational age Extremity no calf tenderness General Extremity: edema Skin no wounds Rashes: No rashes noted Psych activity/motor behavior normal Labs Labs Labs: Blood Type A POSITIVE Antibody Screen NEGATIVE Hct 37.1 % (37-47) Hgb 12.8 g/dL (12.0-15.0) Syphilis Total Ab Nonreactive (Nonreactive) Assessment & Plan (1) SROM (spontaneous rupture of membranes): (2) 39 weeks gestation of : (3) Positive GBS test: PLAN: PCN PLAN: Plan Epidural prn Pitocin augmentation prn
[2025-03-26 10:28] LABS: Hematocrit 37.1 % (37-47); Hemoglobin 12.8 g/dL (12.0-15.0); Immature Granulocytes Count 0.060 X10^3/uL (0.0-0.0); Mean Corp Hgb Conc 34.5 g/dL (32-36); Mean Corpuscular Volume 95.4 fL (81-99); Mean Platelet Vol. 11.6 fl (6.2-12.0); NRBC Flagged by Analyzer 0 % (0-5); Platelet Count 190 K/mm3 (150-450); RBC Distribution Width CV 13.2 % (11.6-14.6); RBC Distribution Width SD 46.4 fl (35.1-43.9); Red Blood Count 3.89 M/mm3 (4.2-5.4); White Blood Count 10.4 K/mm3 (4.4-11.0)
[2025-03-26 11:10] LABS: Syphilis Antibodies Nonreactive (Nonreactive)
[2025-03-26] MEDS: Lactated Ringers 1,000 ML 50 ML IV (11:32)
[2025-03-26] MEDS: Penicillin G Pot 5,000,000 UNITS in 0.9% Normal Saline (100mL MB+) 100 ML 150 UNITS IV (11:32)
[2025-03-26] MEDS: Lactated Ringers 1,000 ML 200 ML IV ×2 (15:11→23:00)
[2025-03-26] MEDS: Lactated Ringers 1,000 ML 999 ML IV (16:00)
[2025-03-26] MEDS: Penicillin G 3,000,000 Units 50 ML 100 UNITS IV ×2 (16:13→19:37)
[2025-03-26] MEDS: fentaNYL-bupivacaine (epidural) 100 ML BAG EPIDURAL ×2 (16:40→23:00)
[2025-03-26] MEDS: Oxytocin 15 Units/NS 250ml 15 UNITS/250 ML IV.SOLN 334 UNITS IV (23:40)
[2025-03-27] VITALS (42 sets, daily range): BP systolic 105–118; BP diastolic 64–76; PULSE 68–106; RESP 16–18; TEMP 36.1–37.1; O2SAT 88–97
--- NOTE | 2025-03-27 00:05 | EX.PCM.OBVAG ---
Assessment & Plan (1) (spontaneous vaginal delivery): Maternal Data Information Final HOOD: 03/29/25 Gestational age: 39+4 Vaginal Delivery Maternal Presentation Maternal Presentation: Spontaneous Rupture of Membranes Vaginal Delivery Information Procedure Performed: Spontaneous Vaginal Delivery Surgeon/Practitioner: Lizeth Tate Date of Procedure: 03/27/25 Pre-Procedure Diagnosis: SROM Post-Procedure Diagnosis: Type of anesthesia: Epidural Estimated Blood Loss: 250 Time of Delivery: 23:38 Findings Description of procedure: Presented with SROM. Labored without augmentation. Did receive an epidural. Once complete pushed for 3 hours and delivered over an intact perineum. The shoulders were forthcoming and the body delivered easily. There was a cord around the neck x 1, loose. It was easily reduced. The cried upon delivery. The cord was clamped and cut at 1 minute. The placenta delivered with gentle traction. A 1st degree laceration was repaired with 2-0 Vicryl. Uterine bleeding was brisk despite fundal massage. Methergine was given x 1. All sponge, needle and lap counts were correct. Presentation: Vertex and KHUSHBOO Amniotic Membrane Rupture Type: Spontaneous Amniotic Fluid Description: Clear Placental Delivery Description: Spontaneous Specimen collected: No Cord Vessel Description: 3 Vessels Cord Entanglement: Around neck x 1, loose Nuchal Cord Compression: Without compression A Gender: Female (1 minute): 8 (5 minute): 9 Delayed Cord Clamping: Yes Creative Consultant sensor operator: No Post Vaginal Deli Medications given after delivery: IV Pitocin Episiotomy Description: None Laceration: Midline and 1st degree Complication Complications: No
[2025-03-27] MEDS: Oxytocin 15 Units/NS 250ml 15 UNITS/250 ML IV.SOLN 83 UNITS IV (00:30)
--- NOTE | 2025-03-27 08:40 | PCM.PN.OB ---
Subjective Subjective Doing well. Ambulating and voiding without difficulty. Mild lochia. Breast feeding. Objective Data Objective Data Vital Signs: Vital Signs Temp Pulse Resp BP Pulse Ox O2 Del Method 98.7 F 78 16 108/65 96 Room Air 03/27/25 04:52 03/27/25 04:52 03/27/25 04:52 03/27/25 04:52 03/27/25 04:52 03/27/25 04:52 Oxygen Delivery Method Room Air Weight: 83.007 kg Body Mass Index (BMI) 33.5 Intake & Output: Intake and Output for Last 24 Hours 03/25/25 03/26/25 03/27/25 23:59 23:59 23:59 Intake Total 2856.66 / 2856.66 1031.52 / 1031.52 Output Total 1100 / 1100 450 / 450 Balance 1756.66 / 1756.66 581.52 / 581.52 Lab / Micro Data 03/26/25 10:05 Labs: Laboratory Results - last 24 hr 03/26/25 10:05: WBC 10.4, RBC 3.89 L, Hgb 12.8, Hct 37.1, MCV 95.4, MCH 32.9 H, MCHC 34.5, RDW Std Deviation 46.4 H, RDW Coeff of South 13.2, Plt Count 190, MPV 11.6, Immature Gran % (Auto) 0.600, Neut % (Auto) 78.7 H, Lymph % (Auto) 15.2 L, Bollinger % (Auto) 5.0, Eos % (Auto) 0.3, Baso % (Auto) 0.2, Absolute Neuts (auto) 8.2 H, Absolute Lymphs (auto) 1.58, Nucleated RBC % 0, Syphilis Total Ab Nonreactive, Blood Type A POSITIVE, Antibody Screen NEGATIVE 03/26/25 11:56: POC Glucose 91 03/26/25 13:42: POC Glucose 91 03/26/25 14:49: POC Glucose 89 03/26/25 15:42: POC Glucose 91 03/26/25 16:54: POC Glucose 106 03/26/25 18:43: POC Glucose 90 03/26/25 19:41: POC Glucose 87 03/26/25 21:18: POC Glucose 99 03/26/25 22:25: POC Glucose 94 03/27/25 00:26: POC Glucose 93 ROS Constitutional Constitutional: Denies headache(s) Cardiovascular Cardiovascular: Denies chest pain or dyspnea Gastrointestinal Gastrointestinal: Denies nausea or vomiting Genitourinary Genitourinary: Denies dysuria Physical Exam Const alert, oriented x3 and no apparent distress General Appearance: cooperative and comfortable Eyes PERRL and EOMs intact bilaterally Resp normal respiratory effort GI soft to palpation and non-tender Uterus Palpation: uterus fundus firm ( below umbilicus) Extremity normal to inspection and full ROM Neuro oriented x3 and CN's II-XII intact bilaterally Psych mental status grossly normal Assessment & Plan (1) (spontaneous vaginal delivery): PLAN: Plan Routine care
[2025-03-27] MEDS: Metoprolol(XL)Succ 50 MG Tablet PO ×2 (09:33→22:50)
[2025-03-28] VITALS (7 sets, daily range): BP systolic 99–120; BP diastolic 62–81; PULSE 74–100; RESP 15–16; TEMP 36.6–36.8; O2SAT 92–97
--- NOTE | 2025-03-28 06:23 | PCM.PN.OB ---
Subjective Subjective Doing well. Ambulating and voiding without difficulty. Mild lochia. Breast feeding. Objective Data Objective Data Vital Signs: Vital Signs Temp Pulse Resp BP Pulse Ox O2 Del Method 98 F 74 16 120/81 H 97 Room Air 03/28/25 04:53 03/28/25 04:53 03/28/25 04:53 03/28/25 04:53 03/28/25 04:53 03/28/25 04:53 Oxygen Delivery Method Room Air Weight: 83.007 kg Body Mass Index (BMI) 33.5 Intake & Output: Intake and Output for Last 24 Hours 03/26/25 03/27/25 03/28/25 23:59 23:59 23:59 Intake Total 2856.66 / 2856.66 1031.52 / 1031.52 Output Total 1100 / 1100 1250 / 1250 Balance 1756.66 / 1756.66 -218.48 / -218.48 Lab / Micro Data 03/26/25 10:05 Labs: Laboratory Results - last 24 hr 03/27/25 08:43: POC Glucose 97 ROS Constitutional Constitutional: Denies headache(s) Cardiovascular Cardiovascular: Denies chest pain or dyspnea Gastrointestinal Gastrointestinal: Denies nausea or vomiting Genitourinary Genitourinary: Denies dysuria Physical Exam Const alert, oriented x3 and no apparent distress General Appearance: cooperative and comfortable Eyes PERRL and EOMs intact bilaterally Resp normal respiratory effort GI soft to palpation and non-tender Uterus Palpation: uterus fundus firm ( below umbilicus) Extremity normal to inspection and full ROM Neuro oriented x3 and CN's II-XII intact bilaterally Psych mental status grossly normal Assessment & Plan (1) (spontaneous vaginal delivery): PLAN: Plan discharge home
--- NOTE | 2025-03-28 06:24 | DS.PCM_ITS ---
Providers Date of Admission: 03/26/25 Date of Discharge: 03/28/25 Primary Care Physician: JACQUELINE Burris, MARKING STITCHER-C Reason For Visit: VAG Diagnosis Discharge Diagnosis (1) (spontaneous vaginal delivery): Status: Acute Code(s): O80 - Encounter for full-term uncomplicated delivery Plan Routine care Medications at Discharge Home Medications vitamins no.119-iron fumarate 29 mg-folic acid 1 mg tablet 1 tab PO DAILY 09/09/24 metoprolol succinate 50 mg tablet,extended release 24 hr (Toprol XL) 50 mg PO BID #120 tabs 09/15/24 pantoprazole 20 mg tablet,delayed release 20 mg PO QDAY 01/26/25 Hospital Course Operations None Procedures None Summary of Care Provided Minutes Spent on Discharge: 21 Hospital Course: without complication. No problems . Breast feeding. Physical Exam Const alert, oriented x3 and no apparent distress General Appearance: cooperative and comfortable Eyes PERRL and EOMs intact bilaterally Resp normal respiratory effort GI soft to palpation and non-tender Narrative: Fundus firm, below umbilicus. Uterus Palpation: uterus fundus firm ( below umbilicus) Extremity normal to inspection and full ROM Neuro oriented x3 and CN's II-XII intact bilaterally Psych mental status grossly normal Weight / BMI Weight Weight: 83.007 kg Body Mass Index (BMI) 33.5 ABG / Lab / Microbiology Data 03/26/25 10:05 Laboratory: Laboratory Results - last 24 hr 03/27/25 08:43: POC Glucose 97 D/C Instructions May resume sexual activity in: 6 weeks DC O2, CPAP, BIPAP Needs Home O2 Discharge instructions: No Please Follow Up With: Lore Slater MD When: Follow up with our office in 1-2 and 6 weeks or as needed. [phone] Meaningful Use Info Meaningful Use Meaningful Use Diagnoses (Choose all that apply): None applicable Discharge Plan Admission Admit Date/Time: 03/26/25 09:25 Primary Reason for Your Visit: labor Attending Provider: Lizeth Tate Primary Care Provider: Lidia Cardenas Discharge Orders/Prescriptions Prescriptions: Continued PNV 119-iron fum-folic acid 29 mg iron- 1 mg tablet 1 tab PO DAILY metoprolol succinate [Toprol XL] 50 mg tablet extended release 24 hr 50 mg PO BID Qty: 120 3RF pantoprazole 20 mg tablet,delayed release (DR/EC) 20 mg PO QDAY Discontinued aspirin [Adult Low Dose Aspirin] 81 mg tablet,delayed release (DR/EC) 81 mg PO QDAY Referrals / Follow Up: Lidia Cardenas, MARKING STITCHER-C [Primary Care Provider] - Disposition Disposition (needs filled in before D/C Order can be placed): Home, Self Care
--- NOTE | 2025-03-28 14:34 | CASEMGMT ---
Social Work Assessment Labor and Delivery Unit Patient Address:[address] [place] [address] Phone number: [phone] Date of Referral: 03/26/25 Time of Referral:? 104 Referred By: Dr. Tate Date of Intervention: ?03/28/25? Time of Intervention:? 1030 Reason for Referral:? discharge planning Sw completed chart review and acknowledges social work consult. Sw also spoke to agricultural consultant who expresses some concerns regarding patient and other family members who are currently at bedside. Sw presented to bedside and introduced self to mother of baby (WANG- Josselin) and maternal grandmother (Jaky) who is also at bedside. MOB states that it is okay for sw to complete assessment with her present. WANG states that Jaky's boyfriend and father of baby (FOB- Sharath Bunch, : 10/07/94) are also at the hospital taking a walk. Sw completed psychosocial assessment. History obtained from: Initially sw obtained information from MOB and grandmother, then FOCheryl when he returned to room. Household composition: Currently residing in the family home is WANG, ARNOL, maternal grandma, grandma's boyfriend: Clive, WANG's sister Karma and Karma's boyfriend. Sterling baby to be included in residence when ready for discharge. WANG denies any problems or concerns with housing, stating that it is safe and secure. Patient's parent/guardian status:? ?WANG states that she and FOCheryl met two years ago on an online dating site. WANG states that after they had been dating for a while ARNOL moved in with her and her family. Sterling baby is first baby for both parents. WANG denies any history of domestic violence or intimate partner violence. Medical History: WANG is 24 year old female who is 1, para 0- now 1 following labor and delivery of . WANG received routine care during with [facility]. WANG states that she has a long list of other medical diagnoses including tachycardia, which she reports makes her blood pressure drop and makes her pass out, and it is because of this reason she is never alone. WANG presented to hospital in active labor and delivered baby via spontaneous vaginal delivery on 03/26/25 at 39 weeks gestation. Baby girl, named Marta Pearson, was born weighing 6lb 14 oz and had apgars of 8 and 9 at one and five minutes of life, respectfully. WANG is breast feeding and baby will be followed by [facility] in [place]. ? Educational Status:?WANG did not graduate from high school. She expresses a desire to obtain her GED and asked sw where to do this at. Shital informed WANG that she would be able to attend free classes at [facility]. Shital told WANG that classes are open for registration now, so if she wants to attend the '- academic year she needs to do so now. WANG states that she will think about this, but will probably wait another year. ARNOL graduated from high school. - Both parents present with a delay, and it is assumed that both required an IEP in school. WANG states that when she was living in [place] she did all over her courses online. Financial Status: Neither parent is currently employed. ARNOL obtains social security disability due to his mental health (ADHD) and limited ability to work. Jaky states that although ARNOL is getting his disability it is going to a family member who is not giving it to ARNOL. Jaky states that they are in the process of ensuring that ARNOL gets his check. Jaky and her boyfriend work outside of the home. Jaky works at [employer] and Clive works at [email or web address]. WANG states that at this time she has not been able to find employment because she does not have her GED, and she states that this is the reason why she is motivated to obtain her GED. Infant Supplies:?? WANG and Jaky state that they have obtained all necessary baby supplies, including: car seat, safe sleep space, clothes, diapers and wipes. Childcare/Caregiver(s):? MOB and FOB report that they will be the primary caregivers. Although, Jaky is extremely active while in the hospital in baby care. Jaky is involved so much so, that ARNOL presented to the nurses station and explained that he is frustrated because she is not letting him partake in activities, care or decision making. Shital was informed of this, so while meeting with family, shital explained to Jaky that she needs to keep in mind that the baby is MOB's and FOB's and they need to be primary caregivers to baby, and they will ask for help when it is needed. Jaky states that she understands, and is wanting to help as much as she can. Sw stated that FOB should be doing all hands on care of along with MOB including: feeds, diapers changes, clothes changes, baths, putting baby in and out of car seat, swaddling, rocking, comforting, etc. - also expressed concern that grandma was wanting to give baby formula when at home. Sw brought up concern to MOB when grandma was not in room, and asked if she has expressed to her mom how important it is to her to breast feed baby. MOB states that she is hoping to start pumping so that other family members can help with feeds. When grandjp returned to room, sw readdressed this concern. Grandjp stated that due to MOB's medical concerns, she sleeps a lot so she is not sure what they will feed baby if MOB is sleeping. Sw explained to MOB and to grandma, that baby's need to eat on demand or every 2-3 hours while they are a all day and night. Sw explained to MOB that if she wants to exclusively breast feed than that means that she will have to get up during the night, or if someone else is caring for baby they will have to wake mom up to feed. Until MOB is pumping, which at that time a caregiver will be able to provide a bottle for baby. Sw encouraged FOB to also be involved with feeds and these conversations. Transportation:?? MOB and FOB do not drive. MOB states that her mom's boyfriend, Clive drives them where they need to go. MOB states that she has been using [facility] for her medical appointments. - Sw informed MOB that she could call [facility] and ask for a General Counselor due to her medical needs and transportation needs. Sw provided MOB with information on how to request a General Counselor, and MOB stated that she feels comfortable doing that for herself. MOB states that she makes all the calls to arrange transportation for herself. Programs/Agencies Involved: ?MOB has insurance through [employer], and WIC. Jaky states that they are over income for food benefits. Sw encouraged them to reapply now that baby has been born, and MOB has a dependent. - Sw also explained Help Me Grow to MOB and the benefits of the program. MOB receptive to getting connected. Sw to make referral. ?? Children Services/Legal Issues:??No prior involvement as parents. - Sw going to continue to monitor patient. Patient has two future appointments, one with (03/30 @6:00) and a research librarian appointment (04/01 @10:30). Sw will ensure that patient has attended those appointments and weight has been appropriate. If any concerns arise at that time, it may warrant a referral to be made to [facility]. Behavioral Health Issues: ??Mental Health History:?ARNOL has been diagnosed with ADHD. WANG states that she has never been diagnosed with any mental health diagnoses. hi states that historically WANG has experienced depression when her father would yell and scream at her mom. ?? Substance Use History:?WANG and ARNOL deny substance use prior to and during . ? Family History:??Parents deny family history of substance use or significant mental health history. ??? Drug Screens: No drug screens observed while completing chart review. Family/Social Stressors:? Current social concerns regarding this family. They are originally from [place], and report that since coming to [place] they are not receiving as many financial supports as they did in [place]. [facility] states that in [place] they are not eligible for food stamps like they were in [place]. WANG and ARNOL both have cognitive delays although to what extent is not known. ARNOL lives with WANG and her family, while his family resides over 3 hours away and is not involved. ARNOL is supposed to be receiving social security disability- reportedly as a result from his ADHD diagnosis and cognitive delay, however his payment is going to another family member and ARNOL is not receiving it. [facility] states that she is in the process of working on this issue so that ARNOL receives what he is entitled to. WANG is unemployed and does not have a high school diploma- expressing the desire to get her GED. WANG states that she has an extensive list of medical problems, mostly revolving around her heart. WANG states that the issues were more complicated throughout her to the point where she would pass out. Because of this concern WANG was never left alone, even in the bathroom, stating that her boyfriend was always with her when she bathed. WANG states that her backup administrative coordinator told her at an appointment you know that's why you're , to which MOB states she was extremely offended. MOB and grandma state that it is due to MOB's medical concerns that MOB will not be alone with baby due to concerns that there is a possibility that she may pass out. There were some concerns regarding feeding baby, and that MOB and grandma were not on the same page regarding how they were going to feed baby. also went in to assist MOB with a feed, and baby was snuggled against MOB- appearing as though baby was feeding, however she was asleep at the breast. But when asked if nursing was hurting mom, she replied by saying no this feels fine, but at that time baby was not even latched. So there were concerns as to whether MOB was even able to tell whether or not baby was feeding or not when at breast. Support Systems: WANG states that FOCheryl and her mom are her biggest supports. Depression/Shaken Baby/Safe Sleeping:?Sw educated MOB and FOB on signs and symptoms of baby blues and depression and anxiety. MOB states that she is familiar with those terms and what to be on the lookout for. MOB states that because she lives with her family and they are all extremely close, she knows that they will be able to recognize if she were struggling with her mental health and would know how to help her. MOB states that she enjoys spending time with animals, and that is her coping skill. Sw educated parents on shaken baby prevention and ABCs of safe sleep. Parents express understanding. ASSESSMENT:?MOB and FOB present, along with maternal grandma and her boyfriend. FOB, grandma and her boyfriend were in and out several times throughout completion of assessment. Initially grandma presented apprehensive in meeting with sw, but then throughout conversation she warmed up to sw and became more and more talkative. Grandma was initially observed holding baby and shushing her, stating that she is trying to console baby because she wants to cluster feed right now. MOB sat down on the bed and stated that she would feed baby. Grandma then helped MOB with getting situation and MOB appeared comfortable feeding baby. MOB and grandma extremely talkative throughout completion of assessment. Grandjp states that because MOB has a lot of medical needs she has always been involved in her life as one of her biggest supports. MOB was receptive to meet with sw and was welcoming and would answer questions but would conversation would jump from topic to topic. FOB when present in room he was sitting or laying on couch and was not participating in conversation. When sw attempted to engage FOB in conversation he would answer with one or two word answers, however he states that he is not nervous about caring for baby. PLAN:? No other services requested or indicated. MOB and baby to be discharged when medically ready. Parents were provided literature regarding: signs and symptoms of baby blues and mood and anxiety disorders, Help Me Grow, shaken baby prevention, ABCs of safe sleep and a list of [facility] resources that are available for them should any needs present themselves. Nirmal Carr, FLY RAIL OPERATOR, AUTO AIR CONDITIONING INSTALLER
--- NOTE | 2025-03-28 14:40 | NURSING ---
Patient changed scientific specialist on day of discharge.
== END 2025-03-28 13:35 | disposition home or self-care (01) | DRG 560 ==
LOC: WPOUT 09:28 → WP 09:28
PROVIDERS: Admitting Provider Obstetrics & Gynecology; PCP Nurse Practitioner Family; Referring Provider Obstetrics & Gynecology; Visit Provider Obstetrics & Gynecology
DX: O99.824 Streptococcus B carrier state complicating childbirth (principal); Z37.0 Single live birth; E72.12 Methylenetetrahydrofolate reductase deficiency; J45.909 Unspecified asthma, uncomplicated; K21.9 Gastro-esophageal reflux disease without esophagitis; O69.81X0 Labor and delivery complicated by cord around neck, without compression, not applicable or unspecified; O99.62 Diseases of the digestive system complicating childbirth; O99.52 Diseases of the respiratory system complicating childbirth; O99.284 Endocrine, nutritional and metabolic diseases complicating childbirth; O70.0 First degree perineal laceration during delivery; Z3A.39 39 weeks gestation of pregnancy; Z79.82 Long term (current) use of aspirin; Z79.899 Other long term (current) drug therapy
CPT/HCPCS: 59025; 59050; 82962; 85025; 86780; 86850; 86900; 86901; 99221; G0378

== ENCOUNTER → 2025-08-03 | Outpatient (CLI) | payer MEDICAID, SELFPAY ==
--- NOTE | 2025-08-03 09:24 | US_ITS ---
PROCEDURE: ABDOMEN LIMITED 08/03/2025 REASON FOR EXAM: CP TECHNIQUE: Procedure Code: USABDL Modality: US Procedure: ABDOMEN LIMITED FINDINGS: GALLBLADDER: multiple non-mobile gallstones measuring up to 1.2cm and sludge. No gallbladder wall thickening or pericholecystic fluid. Negative Tejada sign. COMMON BILE DUCT: Measures 2 mm. No intrahepatic biliary dilatation. LIVER: Normal size. increased echotexture. No definite hepatic mass. RIGHT KIDNEY: Normal in size and echogenicity. No mass. No urinary stones. No hydronephrosis. Pancreas: Within normal limits US/Abdomen Limited IMPRESSION: Cholelithiasis without acute cholecystitis. Hepatic steatosis. Reading Location: [facility]
--- OUTSIDE RECORDS SUMMARY | 2025-08-03 09:30 | XMS RPT_ITS | CCD ---
Author Organization [facility] Care Team Providers Care Perianesthesia Manager Name Role Phone Unavailable Primary Care Provider Unavailabl e Doretha DISABILITIES SERVICES OFFICERShantellLidia Unavailable [phone] DORETHA LIDIA DISABILITIES SERVICES OFFICER%C Consulting Unavailab CAROLYN Gambino CNM Admitting Unavailable CAROLYN RICHMOND CNM Attending Unavailable CAROLYN RICHMOND CNM Primary Care Unavailable PROVIDER, UNKNOWN Consulting Unavailable DORETHA LIDIA DISABILITIES SERVICES OFFICER%C Referring Unavailab le CSERNYNICOLASA BEAUCHAMP DO Admitting Unavailable CSERNICOLASA CALLE DO Attending Unavailable JONATHONRASTRID CALLEIC DO Primary Care Unavailable DORETHA LIDIA DISABILITIES SERVICES OFFICER%C Consulting Unavailab le PROVIDER, UNKNOWN Consulting Unavailable ADRIENNE FUNEZ MD Admitting Unavailabl ADRIENNE Chiang MD Attending UnavailADRINENE iFeld MD Primary Care Unavailabl e BARRY LARRY MD Admitting Unavailable BARRY LARRY MD Attending Unavailable BARRY LARRY MD Primary Care Unavailable DORETHA LIDIA DISABILITIES SERVICES OFFICER%C Consulting Unavailab le PROVIDER, UNKNOWN Consulting Unavailable LIDIA RAZA CNM Admitting Unavailable LIDIA RAZA CNM Attending Unavailable LIDIA RAZA CNM Primary Care Unavailable DORETHA LIDIA DISABILITIES SERVICES OFFICER%C Consulting Unavailab le PROVIDER, UNKNOWN Consulting Unavailable JAMISON ALBERT L Admitting Unavailable ALBERT SWIFT L Attending Unavailable JAMISON ALBERT L Primary Care Unavailable DORETHA, LIDIA DISABILITIES SERVICES OFFICER%C Consulting Unavailab le PROVIDER, UNKNOWN Consulting Unavailable DORETHA LIDIA DISABILITIES SERVICES OFFICER%C Primary Care Unavailab le DORETHA, LIDIA DISABILITIES SERVICES OFFICER%C Admitting Unavailab le DORETHA LIDIA DISABILITIES SERVICES OFFICER%C Attending Unavailab LIDIA Ham CNM Admitting Unavailable LIDIA RAZA CNM Attending Unavailable LIDIA RAZA CNM Primary Care Unavailable DORETHA, LIDIA DISABILITIES SERVICES OFFICER%C Consulting Unavailab le PROVIDER, UNKNOWN Consulting Unavailable Doretha DISABILITIES SERVICES OFFICER-C, Lidia Primary Care Provider Doretha DISABILITIES SERVICES OFFICER-C, Lidia Referring Provider Tr Rendon Attending Provider Bebeto MEYERS, Dr. Stanley Admit Provider Bebeto MEYERS, Dr. Stanley Attending Provider Bebeto MEYERS, Dr. Stanley Referring Provider Lizeth Tate Admitting Unavailable Lizeth Tate Attending Unavailable Lizeth Tate Referring Unavailable Doretha VSC, Lidia Primary Care Unavailabl e Doretha VSC, Lidia Primary Care Unavailabl e Doretha VSC, Lidia Attending Unavailabl e Doretha VSC, Lidia Referring Unavailabl e Laron, Alfred Station Attending Unavailable Laron, Barry Referring Unavailable Doretha VSC, Lidia Primary Care Unavailabl e Laron, Barry Attending Unavailable Doretha VSC, Lidia Primary Care Unavailabl e Doretha VSC, Lidia Referring Unavailabl e Doretha VSC, Lidia Primary Care Unavailabl e Tr Carrasquillo Attending Unavailable Doretha VSC, Lidia Referring Unavailabl e LIZETH TATE Attending Unavailable RAZA, LIDIA Referring Unavailable BEBETOLIZETH STRINGER Attending Unavailable RAZA, LIDIA Referring Unavailable HAURY, TIA Referring Unavailable RAZA, LIDIA Referring Unavailable BENDARAMEMMA Attending Unavaila ble TIA JACOBS Attending Unavailable PLOTTS, CAROLYN Referring Unavailable LIZETH TATE Attending Unavailable PLOTTS, CAROLYN Referring Unavailable RAZA, LIDIA Referring Unavailable RAZA, LIDIA Attending Unavailable RAZA, LIDIA Referring Unavailable STEFANIE CAMPBELL Attending Unavailable RAZA, LIDIA Attending Unavailable PLOTTS, CAROLYN Attending Unavailable JAMISON, ALBERT L Referring Unavailable WISPADILLA, SHARYN Attending Unavailable WISPADILLA, SHARYN Attending Unavailable JAMISON, ALBERT L Referring Unavailable KALEE MORE Attending Unavailable PLOTTS, CAROLYN Referring Unavailable LIZETH TATE Attending Unavailable KRISTA, RIM S Attending Unavailable KRISTA, RIM S Attending Unavailable PLOTTS, CAROLYN Referring Unavailable Allergies Allergy Classification Reported Allergen(s) Allergy Type Date of Onset Reaction(s) Facility (20 sources) Amoxicillin; Translations: [AMOXICILLIN] Drug Allergy 5 GI Upset [facility] (20 sources) H Papillomavirus Vac,Qval (Pf); Translations: [H PAPILLOMAVIRUS VAC,QVAL (PF)] Drug Allergy 5 Other: See Comments [facility] (1 source) Penicillin Drug Allergy [facility] (2 sources) raNITIdine Drug Allergy 5 PT UNSURE OF REACTION [facility] (1 source) Amoxicillin Drug Allergy 5 [facility] (1 source) raNITIdine Drug Allergy 5 [facility] Repository Medications Current Medications Medication Drug [...] / zinc oxide 20 mg oral tablet (2 sources) Vitamin B12, Vitamin D, Vitamin C Start: 09-09-2024 Pnv 119-Iron Fum-Folic Acid 29 mg iron- 1 mg tablet Active 1 {tbl} PO DAILY September 09, 2024 1:00am Start: 09-09-2024 Pnv 119-Iron F um-Folic Acid 29 mg iron- 1 mg tablet Active {tbl} PO September 09, 2024 1:00am aspirin 81 mg delayed release oral tablet (20 sources) Platelet Aggregation Inhibitor, Nonsteroidal Anti-inflammatory Drug Start: 09-15-2024 End: 03-28-2025 take 1 tablet by mouth once daily [...] Active isopropyl alcohol 0.7 ml/ml medicated pad (20 sources) Start: 01-18-2025 alcohol swabs (ALCOHOL PREP PADS) Use as directed to check glucose levels up to seven times daily. 200 each 8 01/18/2025 Active 24 hr metoprolol succinate 50 mg extended [...] 09-01-2024 take 1 tablet by mouth once DE ENATAL VITAMIN 27 mg iron- 0.8 mg [...] id (AMOXIL) famotidine 20 mg oral tablet (19 sources) Histamine-2 Receptor Antagonist Start: 09-09-2024 End: 01-26-2025 take 1 tablet by mouth twice daily Famotidine 20 mg tablet Discontinued 20 mg PO TWICE A DAY September 09, 2024 1:00am January 26, 2025 2:55pm loratadine 10 mg oral tablet (4 sources) Start: 09-09-2024 End: 03-26-2025 take 1 tablet by mouth once daily as needed Loratadine 10 mg tablet Discontinued 10 mg PO daily as needed September 15, 2024 4:44pm March 26, 2025 9:11am Problems Active Problems Problem Classification Problem Date Documented Date Episodic/Chronic Administrative/socia l admission (2 sources) Inadequate material resources; Translations: [Transportation insecurity] 12-13-2024 Episodic Allergic reactions (20 sources) Allergy to penicillin; Translations: [Allergy status to penicillin] Onset: 09-20-2024 09-20-2024 Episodic Asthma (2 sources) Asthma; Translations: [Unspecified asthma, uncomplicated] 09-09-2024 Chronic Bacterial infection; unspecified site (2 sources) Bacteria present; Translations: [Streptococcus, group B, as the cause of diseases classified elsewhere] 03-26-2025 Episodic Cardiac dysrhythmias (4 sources) Inappropriate sinus tachycardia; Translations: [Inappropriate sinus tachycardia] 09-09-2024 Chronic Diabetes or abnormal glucose tolerance complicating [...] encounter] Onset: 12-23-2024 12-22-2024 Episodic Esophageal disorders (2 sources) Gastroesophageal reflux disease; Translations: [Gastro-esophageal reflux disease without esophagitis] 09-09-2024 Chronic Other complications of (1 source) Late entry into care; Translations: [Supervision of with insufficient care, unspecified trimester] 12-20-2024 Episodic Other complications of (1 source) ultrasound scan abnormal; Translations: [Abnormal ultrasonic finding on screening of mother] 01-20-2025 Episodic Other complications of (11 sources) Group B Streptococcus carrier; Translations: [Streptococcus B carrier state complicating ] Onset: 03-13-2025 03-13-2025 Episodic Other complications of (1 source) Streptococcus B carrier state complicating ; Translations: [Group B Streptococcus carrier, antepartum (HCC)] Onset: 03-13-2025 Episodic Other complications of (1 source) Abnormal ultrasonic finding on screening of mother; Translations: [Abnormal ultrasound] Onset: 01-20-2025 Episodic Other female genital disorders (1 source) Vaginal discharge; Translations: [Other specified noninflammatory disorders of vagina] 09-15-2024 Episodic Other lower respiratory disease (2 sources) Dyspnea; Translations: [Dyspnea, unspecified] 09-09-2024 Episodic Other nutritional; endocrine; and metabolic disorders (2 sources) 5,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; 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] 09-09-2024 Chronic Other and delivery including normal (10 sources) with uncertain dates; Translations: [Encounter for supervision of normal , unspecified, unspecified trimester] Onset: 09-23-2024 09-15-2024 Episodic Polyhydramnios and other problems of amniotic cavity (2 sources) Spontaneous rupture of membranes 03-26-2025 Episodic Residual codes; unclassified (1 source) Gestation [...] 02-25-2025 Episodic Residual codes; unclassified (1 source) Gestation period, 37 weeks; Translations: [37 weeks gestation of ] 03-11-2025 Episodic Residual codes; unclassified (3 sources) Gestation period, 39 weeks; Translations: [39 weeks gestation of ] 03-25-2025 Episodic Residual codes; unclassified (1 source) 39 weeks gestation of ; Translations: [39 weeks gestation of (HCC)] Onset: 03-24-2025 Episodic Residual codes; unclassified (1 source) 38 [...] weeks gestation of (HCC)] Onset: 01-20-2025 Episodic Thyroid disorders (20 sources) Hypothyroidism; Translations: [...] Classification Problem Date Documented Da te Episodic/Chronic Cardiac dysrhythmias (20 sources) Tachycardia; Translations: [Tachycardia, unspecified] Onset: 09-16-2024 09-16-2024 Episodic Diabetes mellitus without complication (20 sources) Increased glucose level; Translations: [Other abnormal glucose] Onset: 01-05-2025 01-05-2025 Episodic Other complications of (20 sources) High [...] , antepartum (HCC)] Onset: 09-16-2024 Episodic Other complications of (1 source) Supervision of high risk , unspecified, third trimester; Translations: [Supervision of high risk in third trimester (HCC)] Onset: 01-04-2025 Episodic Other complications of (1 source) Supervision of high risk , unspecified, second trimester; Translations: [Supervision of high risk in second trimester (HCC)] Onset: 12-20-2024 Episodic Other complications of (1 source) Supervision of with insufficient care, unspecified trimester; Translations: [Late care affecting , antepartum (HCC)] Onset: 12-20-2024 Episodic Other lower respiratory disease (1 source) Dyspnea, unspecified; Translations: [Dyspnea, unspecified] Onset: 09-15-2024 Episodic Other screening for suspected conditions (not mental disorders or infectious disease) (9 sources) Patient encounter status; Translations: [Encounter for screening for malignant neoplasm of cervix] Onset: 10-14-2024 09-15-2024 Episodic Residual codes; unclassified (1 source) 28 weeks gestation of ; Translations: [28 weeks gestation of (HCC)] Onset: 01-04-2025 Episodic Residual codes; unclassified (1 source) 25 weeks gestation of ; Translations: [25 weeks gestation of (HCC)] Onset: 12-20-2024 Episodic Unclassified (1 source) Patient encounter status 11-17-2024 Results Test Name Value Interpretation Reference Range Facility [facility] 04-18-2025 CNPN Telephone (OBGYWM) LÓPEZ BRAVO ([id number]) 4 F Date Time Provider Department 04/18/25 LIDIA RAZA During your visit today, we recorded the following information about you: Lizeth Gleason RN 04/18/2025 5:06 PM Signed 03/27/25. Patient calling with questions regarding . Offered to assist her with talking with at [facility] (or [facility]), patient states that she has transportation issues even with Medicaid transport. The baby is feeding off of the right side only. Patient is pumping the left side. Feels that her milk supply has diminished. Upon further discussion, patient states that there is pus coming out of left nipple and breast is hard. Recommended patient have an appointment in our office or Urgent Care in closer proximity to her. Reviewed s/s of mastitis. Again offered to schedule her an appointment. Patient asked if she could be seen when her daughter has a well check on 04/26 and her S.O. is off work. Strongly recommended patient be seen sooner due to risk of infection/mastitis. Patient will talk with them and Medicaid transport first before calling us back to make an appointment. Lizeth Gleason RN Allergies As of Date: 04/18/2025 Noted Allergy Reaction GARDASIL (H PAPILLOMAVIRUS VAC,QV*12/23/2024 14 - Other: See Comments Comments: Made her legs wobbly and tired for 3 days Date Reviewed: 03/24/2025 Reviewed by: Deb Weiss MA - Fully Assessed Reason for Visit: Left Breast [Other] Prescriptions as of 04/18/2025 - VITAMIN 27 mg iron- 0.8 mg [...] once daily. Problem List As Of Date 04/18/2025 Noted Resolved Supervision of high risk in first tri*09/16/2024 Other specified hypothyroidism [E03.8] 09/16/2024 Tachycardia [R00.0] 09/16/2024 UTI (urinary tract infection) in , ant*09/16/2024 Penicillin allergy [Z88.0] 09/20/2024 Elevated glucose [R73.09] 01/05/2025 Diet controlled gestational diabetes mellitus (*01/20/2025 Group B Streptococcus carrier, antepartum (HCC)*03/13/2025 Encounter Status:Closed by LIZETH GLEASON on 04/18/25 Normal [facility] Bedside Glucoseon 03-27-2025 FINGERSTICK GLU 97 mg/dL Normal 74-106 [facility] Comment on above: Result Comment: NADJA GEORGE OF PATIENT CARE PER NURSING PROTOCOL Performed By: #### L 501.080 #### [facility] [address] [place], [address] FINGERSTICK GLU 93 mg/dL Normal 74-106 [facility] Comment on above: Result Comment: NADJA GEMENT OF PATIENT CARE PER NURSING PROTOCOL Performed By: #### L 501.080 #### [facility] [address] [place], [address] FINGERSTICK GLU 99 mg/dL Normal 74-106 [facility] Comment on above: Result Comment: NADJA GEMENT OF PATIENT CARE PER NURSING PROTOCOL Performed By: #### L 501.080 #### [facility] [address] [place], [address] FINGERSTICK GLU 94 mg/dL Normal 74-106 [facility] Comment on above: Result Comment: NADJA GEMENT OF PATIENT CARE PER NURSING PROTOCOL Performed By: #### L 501.080 #### [facility] [address] [place], [address] [facility] deOrdered By: Lizeth Tate on 03-27-2025 Glucose [Mass/Vol] 97 mg/dL 74-106 [facility] Comment on above: MANAGEMENT OF PATIEN T CARE PER NURSING PROTOCOL MR/OB.VAGDELIon 03-27-2025 [facility] Department [address] [place] [address] OB Vaginal Delivery 03/27/25 0005 MR#: [id number] Acct: [id number] Name: LÓPEZ BRAVO Rep #: [id number] : 2000 24 From: Lizeth Tate MD PCP: JACQUELINE Burris, DISABILITIES SERVICES OFFICER-C Status:ADM IN Location: [id number] Assessment Plan (1) (spontaneous vaginal delivery): Maternal Data Information Final HOOD: 03/29/25 Gestational age: 39+4 Vaginal Delivery Maternal Presentation Maternal Presentation: Spontaneous Rupture of Membranes Vaginal Delivery Information Procedure Performed: Spontaneous Vaginal Delivery Surgeon/Practitioner: Lizeth Tate Date of Procedure: 03/27/25 Pre-Procedure Diagnosis: SROM Post-Procedure Diagnosis: Type of anesthesia: Epidural Estimated Blood Loss: 250 Time of Delivery: 23:38 Findings Description of procedure: Presented with SROM. Labored without augmentation. Did receive an epidural. Once complete pushed for 3 hours and delivered over an intact perineum. The shoulders were forthcoming and the body delivered easily. There was a cord around the neck x 1, loose. It was easily reduced. The cried upon delivery. The cord was clamped and cut at 1 minute. The placenta delivered with gentle traction. A 1st degree laceration was repaired with 2-0 Vicryl. Uterine bleeding was brisk despite fundal massage. Methergine was given x 1. All sponge, needle and lap counts were correct. Presentation: Vertex and KHUSHBOO Amniotic Membrane Rupture Type: Spontaneous Amniotic Fluid Description: Clear Placental Delivery Description: Spontaneous Specimen collected: No Cord Vessel Description: 3 Vessels Cord Entanglement: Around neck x 1, loose Nuchal Cord Compression: Without compression A Gender: Female (1 minute): 8 (5 minute): 9 Delayed Cord Clamping: Yes Hotel Assistant General Manager block saw operator: No Post Vaginal Deli Medications given after delivery: IV Pitocin Episiotomy Description: None Laceration: Midline and 1st degree Complication Complications: No 03/27/25 0857 Cosigner Signature (if applicable): CC: [facility] DISABILITIES SERVICES OFFICER-C Lidia Conye; Dr. Lizeth Tate MD Signed Normal [facility] ([facility]) Rupture Of Membraneson 03-26-2025 C-LINE PRESENT? Normal Internal QC [facility] Comment on above: Result Comment: CANC EL, NO LONGER NEED PER PREETI OQUENDO Performed By: #### L 501.080 #### [facility] [address] [place], [place], [id number] RECORD KIT LOT# Normal [facility] Comment on above: Result Comment: CANC EL, NO LONGER NEED PER PREETI OQUENDO Performed By: #### L 501.080 #### [facility] [address] [place], [place], [id number] ROM Normal Negative [facility] Comment on above: Result Comment: CANC EL, NO LONGER NEED PER PREETI OQUENDO Performed By: #### L 501.080 #### [facility] [address] [place], [address] Absolute lymphocyte countOrd ered By: Lizeth Tate on 03-26-2025 Lymphocytes Auto (Unsp spec) [#/Vol] 1.58 10*3/uL 0.83-4.51 [facility] Absolute neutrophil countOrd ered By: Lizeth Tate on 03-26-2025 Neutrophils (Bld) [#/Vol] 8.2 10*3/uL High 2.0-7.7 [facility] Automated lymphocyte count a s percentage of total leukocytesOrdered By: Lizeth Tate on 03-26-2025 Lymphocytes/100 WBC Auto (Unsp spec) 15.2 % Low 19-41 [facility] Basophil percentageOrdered B y: Lizeth Tate on 03-26-2025 Basophils/100 WBC (Bld) 0.2 % 0-1 [facility] Bedside Glucoseon 03-26-2025 FINGERSTICK GLU 87 mg/dL Normal 74-106 [facility] Comment on above: Result Comment: NADJA GEMENT OF PATIENT CARE PER NURSING PROTOCOL Performed By: #### L 501.080 #### [facility] [address] [place], [address] FINGERSTICK GLU 90 mg/dL Normal 74-106 [facility] Comment on above: Result Comment: NADJA GEMENT OF PATIENT CARE PER NURSING PROTOCOL Performed By: #### L 501.080 #### [facility] [address] [place], [address] FINGERSTICK GLU 106 mg/dL Normal 74-106 [facility] Comment on above: Result Comment: NADJA GEMENT OF PATIENT CARE PER NURSING PROTOCOL Performed By: #### L 501.080 #### [facility] [address] [place], [address] FINGERSTICK GLU 91 mg/dL Normal 74-106 [facility] Comment on above: Result Comment: NADJA GEMENT OF PATIENT CARE PER NURSING PROTOCOL Performed By: #### L 501.080 #### [facility] [address] [place], [address] FINGERSTICK GLU 89 mg/dL Normal 74-106 [facility] Comment on above: Result Comment: NADJA GEMENT OF PATIENT CARE PER NURSING PROTOCOL Performed By: #### L 501.080 #### [facility] [address] [place], [address] FINGERSTICK GLU 91 mg/dL Normal 74-106 [facility] Comment on above: Result Comment: NADJA GEMENT OF PATIENT CARE PER NURSING PROTOCOL Performed By: #### L 501.080 #### [facility] [address] [place], [address] FINGERSTICK GLU 91 mg/dL Normal 74-106 [facility] Comment on above: Result Comment: NADJA GEMENT OF PATIENT CARE PER NURSING PROTOCOL Performed By: #### L 501.080 #### [facility] [address] [place], [address] CBC W/Diff, Automatedon 08-1 -2024 Absolute Lymph 1.58 X10 3/uL Normal 0.83-4.51 [facility] Comment on above: Performed By: #### Cheryl LE, L100.0100 #### [facility] [address] [place], [address] Absolute Neut 8.2 X10 3/uL High 2.0-7.7 [facility] Comment on above: Performed By: #### Cheryl LE, L100.0100 #### [facility] [address] [place], [address] Basophils/100 WBC (Bld) 0.2 % Normal 0-1 [facility] Comment on above: Performed By: #### Cheryl LE, L100.0100 #### [facility] [address] [place], [address] Eosinophils/100 WBC (Bld) 0.3 % Normal 0-5 [facility] Comment on above: Performed By: #### Cheryl LE, L100.0100 #### [facility] [address] [place], [address] Erythrocyte distribution width (RBC) [Ratio] 13.2 % Normal 11.6-14.6 [facility] Comment on above: Performed By: #### B RAFAELA, L100.0100 #### [facility] [address] [place], [address] Hematocrit (Bld) [Volume fraction] 37.1 % Normal 37-47 [facility] Comment on above: Performed By: #### Cheryl LE, L100.0100 #### [facility] [address] [place], [address] Hemoglobin (Bld) [Mass/Vol] 12.8 g/dL Normal 12.0-15.0 [facility] Comment on above: Performed By: #### Cheryl LE, L100.0100 #### [facility] [address] [place], [address] IG% 0.600 Normal 0.0-0.9 [facility] Comment on above: Result Comment: IG% - Immature Granulocytes (promyelocytes, myelocytes and metamyelocytes) > 1% indicates that a LEFT SHIFT is Present. Performed By: #### Cheryl LE, L100.0100 #### [facility] [address] [place], [address] Lymphocytes/100 WBC (Bld) 15.2 % Low 19-41 [facility] Comment on above: Performed By: #### Cheryl LE, L100.0100 #### [facility] [address] [place], [address] MCH (RBC) [Entitic mass] 32.9 pg High 27.0-32.0 [facility] Comment on above: Performed By: #### Cheryl LE, L100.0100 #### [facility] [address] [place], [address] MCHC (RBC) [Mass/Vol] 34.5 g/dL Normal 32-36 [facility] Comment on above: Performed By: #### Cheryl LE, L100.0100 #### [facility] [address] [place], [address] MCV (RBC) [Entitic vol] 95.4 fL Normal 81-99 [facility] Comment on above: Performed By: #### Cheryl LE, L100.0100 #### [facility] [address] [place], [address] Monocytes/100 WBC (Bld) 5.0 % Normal 0-10 [facility] Comment on above: Performed By: #### Cheryl LE, L100.0100 #### [facility] [address] [place], [address] Neutrophils/100 WBC (Bld) 78.7 % High 47-70 [facility] Comment on above: Performed By: #### Cheryl LE, L100.0100 #### [facility] [address] [place], [address] Nucleated RBC (Bld) [#/Vol] 0 10*3/uL Normal 0-5 [facility] Comment on above: Performed By: #### Cheryl LE, L100.0100 #### [facility] [address] [place], [address] Platelet mean volume (Bld) [Entitic vol] 11.6 fL Normal 6.2-12.0 [facility] Comment on above: Performed By: #### Cheryl LE, L100.0100 #### [facility] [address] [place], [address] Platelets (Bld) [#/Vol] 190 10*3/uL Normal 150-450 [facility] Comment on above: Performed By: #### Cheryl LE, L100.0100 #### [facility] [address] [place], [address] RBC (Bld) [#/Vol] 3.89 10*6/uL Low 4.2-5.4 [facility] Comment on above: Performed By: #### B TS, L100.0100 #### [facility] [address] [place], [address] RDW SD 46.4 fl High 35.1-43.9 [facility] Comment on above: Performed By: #### B TS, L100.0100 #### [facility] [facility] [address] [place], [address] WBC (Bld) [#/Vol] 10.4 10*3/uL Normal 4.4-11.0 [facility] Comment on above: Performed By: #### B TS, L100.0100 #### [facility] [address] [place], [address] Eosinophil percentageOrdered By: Lizeth Tate on 03-26-2025 Eosinophils/100 WBC (Bld) 0.3 % 0-5 [facility] Erythrocyte distribution wid th ratioOrdered By: Lizeth Tate on 03-26-2025 Erythrocyte distribution width (RBC) [Ratio] 13.2 % 11.6-14.6 [facility] Erythrocyte distribution wid th standard deviationOrdered By: Lizeth Tate on 03-26-2025 Erythrocyte distribution width (RBC) [Ratio] 46.4 fl High 35.1-43.9 [facility] H AND P Exam - OB/GYNon 03-11 H&P Exam - SUPERVISOR PREP [facility] Medical Records Department [address] [place] [address] H P Exam - SUPERVISOR PREP 03/26/25 0942 MR#: [id number] Acct: [id number] Name: LÓPEZ BRAVO Rep #: [id number] : 2000 24 From: Lizeth Tate MD PCP: JACQUELINE Burris, DISABILITIES SERVICES OFFICER-C Status:ADM IN Location: [id number] HPI - General General Date of Admission: 03/26/25 Date of Service: 03/26/25 Chief Complaint: ROM HPI Narrative LÓPEZ BRAVO, is a 24 F who presents LOF and spotting. GBS positive. Gross ROM with cervical change. Admit for labor Maternal Data Information Final HOOD: 03/29/25 Gestational age: 39+4 PFSH [facility] Medical History Asthma GERD (gastroesophageal reflux disease) Methylenetetrahydrofola te reductase deficiency Dyspnea Inappropriate sinus tachycardia Home Medications ???Medication ???Instructions ???Recorded ???Last Taken ???Type vitamins no.119-iron 1 tab PO DAILY 09/09/24 03/26/25 History fumarate 29 mg-folic acid 1 mg tablet aspirin 81 mg tablet,delayed 81 mg PO QDAY 09/15/24 Unknown His tory release (Adult Low Dose Aspirin) metoprolol succinate 50 mg 50 mg PO BID #120 tabs 09/15/24 Un known Rx tablet,extended release 24 hr (Toprol XL) pantoprazole 20 mg tablet,delayed 20 mg PO QDAY 01/26/25 Unknown Hi story release Allergy/AdvReac Type Severity Reaction Status Date / Time ranitidine Allergy Intermediate PT UNSURE Verified 03/26/25 09:10 OF REACTION Family History Sister Heart disease Surgical History No history of previous surgery Social History Smoking Status: Never smoker History 1 Elective abortions Hx Para 0 Spontaneous abortions Hx # Term Pregnancies Ectopic pregnancies Hx # Pregnancies Multiple births # of living children NST FHR Rate Baby A Baseline: 135 Variability:: Moderate Accelerations:: 15 x 15 Decelerations:: None NST Reactive:: Yes FHR Category:: Category I Uterine Activity:: q 3 ROS Constitutional Constitutional: Denies fatigue, fever(s) or malaise Eyes Eyes: Denies change in vision ENT HEENT: Denies dizziness or headache(s) Cardiovascular Cardiovascular: Denies chest pain, dyspnea or lightheadedness Respiratory/Chest Respiratory/Chest: Denies cough or dyspnea Gastrointestinal Gastrointestinal: Denies change in bowel habits Genitourinary Genitourinary: Denies burning urination or genital lesions Integumentary Integumentary: Denies rash Neurologic Neurologic: Denies confusion, dizziness, headache(s), numbness or weakness Vital Signs Vital Signs Vital Signs: 03/26/25 09:01 03/26/25 09:01 Pulse Rate 96 Blood Pressure 119/77 BP Systolic 119 BP Diastolic 77 Physical Exam Const alert and no apparent distress General Appearance: cooperative HEENT normocephalic Resp normal respiratory effort Cardio regular rate GI soft to palpation GI Narrative: gravid, nontender, appropriate for gestational age Extremity no calf tenderness General Extremity: edema Skin no wounds Rashes: No rashes noted Psych activity/motor behavior normal Labs Labs Labs: Blood Type A POSITIVE Antibody Screen NEGATIVE Hct 37.1 % (37-47) Hgb 12.8 g/dL (12.0-15.0) Syphilis Total Ab Nonreactive (Nonreactive) Assessment Plan (1) SROM (spontaneous rupture of membranes): (2) 39 weeks gestation of : (3) Positive GBS test: PLAN: PCN PLAN: Plan Epidural prn Pitocin augmentation prn 03/26/25 1430 Cosigner Signature (if applicable): CC: Francis DISABILITIES SERVICES OFFICER-C Lidia Coyne; Dr. Lizeth Tate MD Signed Normal [facility] Hematocrit Auto (Bld) [Volum e fraction]Ordered By: Lizeth Tate on 03-26-2025 Hematocrit (Bld) [Volume fraction] 37.1 % 37-47 [facility] Hemoglobin measurementOrdere d By: Lizeth Tate on 03-26-2025 Hemoglobin (Bld) [Mass/Vol] 12.8 g/dL 12.0-15.0 [facility] Immature granulocytes/100 WB C Auto (Bld)Ordered By: Lizeth Tate on 03-26-2025 Immature granulocytes/100 WBC (Bld) 0.600 % 0.0-0.9 [facility] Comment on above: IG% - Immature Granu locytes (promyelocytes, myelocytes and metamyelocytes) > 1% indicates that a LEFT SHIFT is Present. MCV (mean corpuscular volume ) determinationOrdered By: Lizeth Tate on 03-26-2025 MCV (RBC) [Entitic vol] 95.4 fL 81-99 [facility] Mean corpuscular hemoglobin (MCH) determinationOrdered By: Lizeth Tate on 03-26-2025 MCH (RBC) [Entitic mass] 32.9 pg High 27.0-32.0 [facility] Mean corpuscular hemoglobin concentration (MCHC) determinationOrdered By: Lizeth Tate on 03-26-2025 MCHC (RBC) [Mass/Vol] 34.5 g/dL 32-36 [facility] Mean platelet volume determi nationOrdered By: Lizeth Tate on 03-26-2025 Platelet mean volume (Bld) [Entitic vol] 11.6 fL 6.2-12.0 [facility] Monocyte percentageOrdered B y: Lizeth Tate on 03-26-2025 Monocytes/100 WBC (Bld) 5.0 % 0-10 [facility] Neutrophil percentageOrdered By: Lizeth Tate on 03-26-2025 Neutrophils/100 WBC (Bld) 78.7 % High 47-70 [facility] Nucleated red blood cell per centageOrdered By: Lizeth Tate on 03-26-2025 Nucleated RBC/100 WBC (Bld) [Ratio] 0 % 0-5 [facility] Platelet countOrdered By: John Tate on 03-26-2025 Platelets (Bld) [#/Vol] 190 10*3/uL 150-450 [facility] RBC Auto (Bld) [#/Vol]Ordere d By: Lizeth Tate on 03-26-2025 RBC (Bld) [#/Vol] 3.89 10*6/uL Low 4.2-5.4 [facility] Syphilis Antibodieson 2024 Syphilis Abs Non-Reactive Normal Nonreactive [facility] Comment on above: Performed By: #### L 501.080 #### [facility] [address] [place] [address]. [place], [place], [id number] Type AND Screenon 03-26-2025 Ab SCREEN GEL Negative Normal [facility] Comment on above: Order Comment: Labor Performed By: #### B TS, L100.0100 #### [facility] [place], [address] White blood cell (WBC) count Ordered By: Lizeth Tate on 03-26-2025 WBC (Bld) [#/Vol] 10.4 10*3/uL 4.4-11.0 [facility] CNPNon 03-25-2025 CNPN Telephone (OBGYWM) LÓPEZ BRAVO ([id number]) 4 F Date Time Provider Department 03/25/25 SHARYN RODRIGUEZ During your visit today, we recorded the following information about you: Anh Olson RN 03/25/2025 12:46 PM Signed Patient was seen 03/24/[address] Rodriguez. She was to call back with a preferred induction date. Patient calling back stating she would like to be induced on 03/29/2025. Any other dates would work but wants to avoid 03/28/2025 Lizeth Gleason RN 03/25/2025 1:42 PM Signed Patient is scheduled 03/29 for induction of labor. Lizeth Gleason RN Allergies As of Date: 03/25/2025 Noted Allergy Reaction GARDASIL (H PAPILLOMAVIRUS VAC,QV*12/23/2024 14 - Other: See Comments Comments: Made her legs wobbly and tired for 3 days Date Reviewed: 03/24/2025 Reviewed by: Deb Weiss MA - Fully Assessed Reason for Visit: Prescriptions as of 03/25/2025 - VITAMIN 27 mg iron- 0.8 mg [...] once daily. Problem List As Of Date 03/25/2025 Noted Resolved Supervision of high risk in first tri*09/16/2024 Other specified hypothyroidism [E03.8] 09/16/2024 Tachycardia [R00.0] 09/16/2024 UTI (urinary tract infection) in , ant*09/16/2024 Penicillin allergy [Z88.0] 09/20/2024 Elevated glucose [R73.09] 01/05/2025 Diet controlled gestational diabetes mellitus (*01/20/2025 Group B Streptococcus carrier, antepartum (HCC)*03/13/2025 Encounter Status:Closed by LIZETH GLEASON on 03/25/25 Normal [facility] Telephone (OBGYWM) LÓPEZ BRAVO ([id number]) 4 F Date Time Provider Department 03/25/25 LIZETH TATE During your visit today, we recorded the following information about you: Isis Morse LPN 03/25/2025 2:53 PM Signed Ob is 39w3d patient called c/o brownish-red spotting today and on-going lower back pain and pelvic pressure. Denies LOF, baby active. Patient had pelvic exam yesterday at ob appointment. Patient is scheduled for an induction 03/29 at 7pm. Patient asking if induction can be moved to 03/28/25 or this weekend? Lizeth Tate MD 03/25/2025 3:44 PM Signed Could be moved to Friday however there may not be any available times slots at this point Lizeth Gleason RN 03/25/2025 4:06 PM Signed Induction moved to 03/28. Patient aware. Lizeth Gleason RN Allergies As of Date: 03/25/2025 Noted Allergy Reaction GARDASIL (H PAPILLOMAVIRUS VAC,QV*12/23/2024 14 - Other: See Comments Comments: Made her legs wobbly and tired for 3 days Date Reviewed: 03/24/2025 Reviewed by: Deb Weiss MA - Fully Assessed Reason for Visit: Care [86] Prescriptions as of 03/25/2025 - VITAMIN 27 mg iron- 0.8 mg [...] once daily. Problem List As Of Date 03/25/2025 Noted Resolved Supervision of high risk in first tri*09/16/2024 Other specified hypothyroidism [E03.8] 09/16/2024 Tachycardia [R00.0] 09/16/2024 UTI (urinary tract infection) in , ant*09/16/2024 Penicillin allergy [Z88.0] 09/20/2024 Elevated glucose [R73.09] 01/05/2025 Diet controlled gestational diabetes mellitus (*01/20/2025 Group B Streptococcus carrier, antepartum (HCC)*03/13/2025 Encounter Status:Closed by LIZETH GLEASON on 03/25/25 Normal [facility] URINE OB DIP B/Oon Glucose Ql (U) Negative Neg mg/dL [facility] Interpretation and review of laboratory results Normal [facility] Protein.monoclonal (U) [Mass/Vol] Negative Neg mg/dL [facility] ROUTINE, GROUP B ST REPTOCOCCUS BY PCRon 03-13-2025 Interpretation and review of laboratory results Abnormal [facility] S. agalactiae DNA DILIP+probe Ql (Unsp spec) Detected Abnormal Not detected [facility] If susceptibility testing is needed and was not requested with initial test order, call lab ([facility] micro is [phone]) within 5 days to initiate workup. This PCR is performed on a vaginal-rectal swab after culture enrichment. It is the most sensitive method for Group B Streptococcus screening. (Obstet Gynecol. 2020 PMID [id number]) [facility] ROUTINE, GROUP B ST REPTOCOCCUS BY PCRon 03-11-2025 ROUTINE, GROUP B STREPTOCOCCUS BY PCR Detected Abnormal [facility] Comment on above: Performed By: #### G BPCR ####[facility] LABCLIA [id number] [place] [address] [place] URINE OB DIP B/Oon Glucose Ql (U) Negative Neg mg/dL [facility] Interpretation and review of laboratory results Normal [facility] Protein.monoclonal (U) [Mass/Vol] trace Neg mg/dL [facility] Examination level ultrasound on 03-04-2025 [facility] Examination level ultrasound on 03-03-2025 Radiology Study observation (narrative) [facility] T4 Free SerPl-mCncon 025 Free T4 [Mass/Vol] 1.1 ng/dL Normal 0.9-1.7 [facility] Comment on above: Order Comment: Speci men Type: BLOOD SPECIMENOrdering Facility: [facility] Address: [address] [place] [address] Performed By: #### 3 024-7, 3016-3 ####[facility] LABCLIA [id number] [place] [address] [place] TSH SerPl-aCncon 03-03-2025 TSH Qn 1.110 m[IU]/L Normal 0.270-4.200 [facility] Comment on above: Order Comment: Speci men Type: BLOOD SPECIMENOrdering Facility: [facility] Address: [address] [place] [address] Result Comment: If t he patient is , TSH reference range varies by gestational period: First Trimester (weeks 9-12): 0.180-2.990 mIU/L Second Trimester: 0.110-3.980 mIU/L Third Trimester: 0.480-4.710 mIU/L Darrick Ramires et al. A Practical Approach for the Verifications and Determination of Site- and Trimester-Specific Reference Intervals for Thyroid Function tests in . Thyroid, 2019:29:3:412-420. William E, et al. 2017 Guidelines of the [place] Thyroid Association for the Diagnosis and Management of Thyroid Disease during and the . Thyroid, 2017:27:3:315-389. Performed By: #### 3 024-7, 3016-3 ####[facility] LABCLIA [id number] [place] [address] [place] URINE OB DIP B/Oon 5 Glucose Ql (U) Negative Neg mg/dL [facility] Protein.monoclonal (U) [Mass/Vol] trace Neg mg/dL [facility] CNOVon 03-02-2025 CNOV Office Visit (AAPENO ) LÓPEZ BRAVO ([id number]) 4 F Date Time Provider Department 03/02/25 [...] = 0 mm PENICILLIN GK 10,000 UNITS/ML [facility]: 5172-2864-59 LOT: [id number] Exp: 10/08/2025 P: W = 0 mm F = 0 mm ID: W = 0 mm F = 0 mm PREPEN -(benzy (more content not included)... 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] Cmt: PRAMarie Prescriptions as of 02/28/2025 - pantoprazole DR [...] Status:Closed by LIZETH PATEL on 02/28/25 Normal [facility] URINE OB DIP B/Oon Glucose Ql (U) Negative Neg mg/dL [facility] Interpretation and review of laboratory results Normal [facility] Protein.monoclonal (U) [Mass/Vol] Negative Neg mg/dL [facility] Examination level ultrasound on 02-03-2025 [facility] Examination level ultrasound on 02-02-2025 Radiology Study observation (narrative) [facility] Card[facility] Visit Reporton Cardiology Visit Report [facility] [address] [place] [address] OFFICE VISIT Date of Service: 01/26/25 MR#: [id number] Acct: [id number] Name: LÓPEZ BRAVO Rep #: [id number] : 2000 Provider: GOLDY Finley Age/Sex: 24/F Location: 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 Normal [facility] Bacteria Ur Culton 5 Bacteria identified Cx Nom (U) ORGANISM ID: 1 <10,000 CFU/ml Normal urogenital delores Normal [facility] Comment on above: Performed By: #### 6 30-4 ####[facility] LABCLIA [id number] [place] [address] [place] CNPMelida 01-18-2025 EVANSN Telephone (TESSA) LÓPEZ BRAVO ([id number]) 4 F Date Time Provider Department 01/18/25 CAROLYN RICHMOND During your visit today, we recorded the following information about you: Lizeth Gleason RN 01/18/2025 9:23 AM Signed Received 3 hour glucose results from [place]. 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 Patient sees Endo for hypothyroidism. [employer] message sent to patient. Lizeth Gleason RN Scan on 01/18/2025 9:02 AM by Provider, External, TRANGC: 3 hour glucose Carolyn Richmond APRN.CNM 01/18/2025 4:38 PM Signed Orders signed. Please assist with scheduling growth US. JONAH Donato Jennifer, RN 01/18/2025 4:46 PM Signed Appt note made for 01/20/25 if patient does not view [employer] message. Needs to schedule appointments. PREETI Cox Jennifer, RN 01/19/2025 2:59 PM Signed Patient called in to the office. She reviewed [employer] message. Transferred to [facility] to assist with scheduling. Lizeth Gleason RN [...] times daily.Disp: 200 eachRfl: 8 OBSTETRIC ULTRASOUND I [0935999] Order #: [id number]: 1 STANDING alcohol swabs (ALCOHOL PREP PADS)Use as directed to check glucose levels up to seven times daily.Disp: 200 eachRfl: 8 CONSULT TO DIABETES EDUCATION DSME [7047611] Order #: [id number]: 2 FUTURE CONSULT TO NUTRITION THERAPY [9020] Order #: [id number]: 4 FUTURE Prescriptions as of 01/19/2025 - [...] Status:Closed by CAROLYN RICHMOND on 01/18/25 Normal [facility] GLUCOSE TOLERANCE-3 HOURon 0 01-13-2025 GLUCOSE TOLERANCE-3 HOUR Normal [facility] Comment on above: Result Comment: 3 HO UR GLUCOSE TOLERANCE Reference Range BLOOD Adult(non) Adult() FASTING _102 mg/dl <100 mg/dL 95 mg/dL 01/13/25.JLN. 1 HOUR _206 mg/dl 70-115 mg/dL 180 mg/dL 01/13/25.JLN. 2 HOUR _216 mg/dl <140 mg/dL 155 mg/dL 01/13/25.JLN. 3 HOUR _190 mg/dl 70-115 mg/dL 140 mg/dL 01/13/25.JLN. URINE-GLUCOSE Fasting......... _NA (NORMAL) 01/13/25.JLN. 1 hour.......... _NA (NORMAL) 01/13/25.JLN. 2 hours......... _NA (NORMAL) 01/13/25.JLN. 3 hours......... _NA (NORMAL) 01/13/25.JLN. URINE-KETONES Fasting......... _NA (NEGATIVE) 01/13/25.JLN. 1 hour.......... _NA (NEGATIVE) 01/13/25.JLN. 2 hour.......... _NA (NEGATIVE) 01/13/25.JLN. 3 hour.......... _NA (NEGATIVE) 01/13/25.JLN. Performed By: #### 2 [id number] ####[facility],[address] [place] [address] CBC W Auto Differential tiburcioe panchito (Bld)on 01-04-2025 Nettie (Bld) [#/Vol] 10*3/uL Normal <0.11 [facility] Comment on above: Order Comment: Speci men Type: BLOOD SPECIMENOrdering Facility: [facility] Address: [address] [place] [address] Performed By: #### 5 7021-8 ####[facility] [id number] [place] [address] [place] Basophils/100 WBC (Bld) 0.2 % Normal [facility] Comment on above: Order Comment: Speci men Type: BLOOD SPECIMENOrdering Facility: [facility] Address: [address] [place] [address] Performed By: #### 5 7021-8 ####[facility] [id number] [place] [address] [place] Differential cell count method Nom (Bld) Auto Normal [facility] Comment on above: Order Comment: Speci men Type: BLOOD SPECIMENOrdering Facility: [facility] Address: [address] [place] [address] Performed By: #### 5 7021-8 ####[facility] [id number] [place] [address] [place] Eosinophils (Bld) [#/Vol] 10*3/uL Normal <0.46 [facility] Comment on above: Order Comment: Speci men Type: BLOOD SPECIMENOrdering Facility: [facility] Address: [address] [place] [address] Performed By: #### 5 7021-8 ####[facility] [id number] [place] [address] [place] Eosinophils/100 WBC (Bld) 0.2 % Normal [facility] Comment on above: Order Comment: Speci men Type: BLOOD SPECIMENOrdering Facility: [facility] Address: [address] [place] [address] Performed By: #### 5 7021-8 ####[facility] [id number] [place] [address] [place] Erythrocyte distribution width (RBC) [Ratio] 13.4 % Normal 11.5-15.0 [facility] Comment on above: Order Comment: Speci men Type: BLOOD SPECIMENOrdering Facility: [facility] Address: [address] [place] [address] Performed By: #### 5 7021-8 ####[facility] [id number] [place] [address] [place] Hematocrit (Bld) [Volume fraction] 36.9 % Normal 36.0-46.0 [facility] Comment on above: Order Comment: Speci men Type: BLOOD SPECIMENOrdering Facility: [facility] Address: [address] [place] [address] Performed By: #### 5 7021-8 ####[facility] [id number] [place] [address] [place] Hemoglobin (Bld) [Mass/Vol] 12.4 g/dL Normal 11.5-15.5 [facility] Comment on above: Order Comment: Speci men Type: BLOOD SPECIMENOrdering Facility: [facility] Address: [address] [place] [address] Performed By: #### 5 7021-8 ####[facility] [id number] [place] [address] [place] Immature granulocytes (Bld) [#/Vol] 0.05 10*3/uL Normal <0.10 [facility] Comment on above: Order Comment: Speci men Type: BLOOD SPECIMENOrdering Facility: [facility] Address: [address] [place] [address] Performed By: #### 5 7021-8 ####[facility] [id number] [place] [address] [place] Immature granulocytes/100 WBC (Bld) 0.5 % Normal [facility] Comment on above: Order Comment: Speci men Type: BLOOD SPECIMENOrdering Facility: [facility] Address: [address] [place] [address] Performed By: #### 5 7021-8 ####[facility] [id number] [place] [address] [place] Lymphocytes (Bld) [#/Vol] 1.29 10*3/uL Normal 1.00-4.00 [facility] Comment on above: Order Comment: Speci men Type: BLOOD SPECIMENOrdering Facility: [facility] Address: [address] [place] [address] Performed By: #### 5 7021-8 ####[facility] [id number] [place] [address] [place] Lymphocytes/100 WBC (Bld) 12.0 % Normal [facility] Comment on above: Order Comment: Speci men Type: BLOOD SPECIMENOrdering Facility: [facility] Address: [address] [place] [address] Performed By: #### 5 7021-8 ####[facility] [id number] [place] [address] [place] MCH (RBC) [Entitic mass] 32.6 pg Normal 26.0-34.0 [facility] Comment on above: Order Comment: Speci men Type: BLOOD SPECIMENOrdering Facility: [facility] Address: [address] [place] [address] Performed By: #### 5 7021-8 ####[facility] [id number] [place] [address] [place] MCHC (RBC) [Mass/Vol] 33.6 g/dL Normal 30.5-36.0 [facility] Comment on above: Order Comment: Speci men Type: BLOOD SPECIMENOrdering Facility: [facility] Address: [address] [place] [address] Performed By: #### 5 7021-8 ####[facility] ROSANGELAMARQUIS [id number] [place] [address] [place] MCV (RBC) [Entitic vol] 97.1 fL Normal 80.0-100.0 [facility] Comment on above: Order Comment: Speci men Type: BLOOD SPECIMENOrdering Facility: [facility] Address: [address] [place] [address] Performed By: #### 5 7021-8 ####[facility] [id number] [place] [address] [place] Monocytes (Bld) [#/Vol] 0.30 10*3/uL Normal <0.87 [facility] Comment on above: Order Comment: Speci men Type: BLOOD SPECIMENOrdering Facility: [facility] Address: [address] [place] [address] Performed By: #### 5 7021-8 ####[facility] [id number] [place] [address] [place] Monocytes/100 WBC (Bld) 2.8 % Normal [facility] Comment on above: Order Comment: Speci men Type: BLOOD SPECIMENOrdering Facility: [facility] Address: [address] [place] [address] Performed By: #### 5 7021-8 ####[facility] [id number] [place] [address] [place] Neutrophils (Bld) [#/Vol] 9.10 10*3/uL High 1.45-7.50 [facility] Comment on above: Order Comment: Speci men Type: BLOOD SPECIMENOrdering Facility: [facility] Address: [address] [place] [address] Performed By: #### 5 7021-8 ####[facility] ROSANGELAWELISALIA [id number] [place] [address] [place] Neutrophils/100 WBC (Bld) 84.3 % Normal [facility] Comment on above: Order Comment: Speci men Type: BLOOD SPECIMENOrdering Facility: [facility] Address: [address] [place] [address] Performed By: #### 5 7021-8 ####[facility] [id number] [place] [address] [place] Nucleated RBC (Bld) [#/Vol] 10*3/uL Normal <0.01 [facility] Comment on above: Order Comment: Speci men Type: BLOOD SPECIMENOrdering Facility: [facility] Address: [address] [place] [address] Performed By: #### 5 7021-8 ####[facility] [id number] [place] [address] [place] Nucleated RBC/100 WBC (Bld) [Ratio] 0.0 /100 WBC Normal [facility] Comment on above: Order Comment: Speci men Type: BLOOD SPECIMENOrdering Facility: [facility] Address: [address] [place] [address] Performed By: #### 5 7021-8 ####[facility] [id number] [place] [address] [place] Platelet mean volume (Bld) [Entitic vol] 11.1 fL Normal 9.0-12.7 [facility] Comment on above: Order Comment: Speci men Type: BLOOD SPECIMENOrdering Facility: [facility] Address: [address] [place] [address] Performed By: #### 5 7021-8 ####[facility] [id number] [place] [address] [place] Platelets (Bld) [#/Vol] 258 10*3/uL Normal 150-400 [facility] Comment on above: Order Comment: Speci men Type: BLOOD SPECIMENOrdering Facility: [facility] Address: [address] [place] [address] Performed By: #### 5 7021-8 ####[facility] [id number] [place] [address] [place] RBC (Bld) [#/Vol] 3.80 10*6/uL Low 3.90-5.20 [facility] Comment on above: Order Comment: Speci men Type: BLOOD SPECIMENOrdering Facility: [facility] Address: [address] [place] [address] Performed By: #### 5 7021-8 ####[facility] [id number] [place] [address] [place] WBC (Bld) [#/Vol] 10.78 10*3/uL Normal 3.70-11.00 [facility] Comment on above: Order Comment: Speci men Type: BLOOD SPECIMENOrdering Facility: [facility] Address: [address] [place] [address] Performed By: #### 5 7021-8 ####[facility] [id number] [place] [address] [place] GESTATIONAL GLUCOSE SCREEN, 1-HOUR, 50 GRAM, NON-FASTINGon 01-04-2025 Glucose [Mass/Vol] 172 mg/dL High 74-134 [facility] Comment on above: Order Comment: Speci men Type: BLOOD SPECIMENOrdering Facility: [facility] Address: [address] [place] [address] Result Comment: [facility] Congress of Obstetricians and Gynecologists (Sol/Vidya) guidelines state a gestational diabetes mellitus positive screen is made, in women not previously diagnosed with overt diabetes, when the 1 hr plasma glucose level is equal to or above 140 mg/dL. The [facility] Fellow and [facility]ity recommends a 135 mg/dL cutoff. Performed By: #### G LTGST ####[facility] [id number] [place] [address] [place] Reagin and Treponema pallidu m IgG and IgM [Interp]on 01-04-2025 T. pallidum IgG+IgM IA Ql (S) Non-Reactive Normal Nonreactive [facility] Comment on above: Order Comment: Speci men Type: BLOOD SPECIMENOrdering Facility: [facility] Address: [address] [place] [address] Performed By: #### 7 3752-8 ####[facility] LABIA [id number] [place] [address] [place] Reagin+T pallidum IgG+IgM Se rPl-Impon 01-04-2025 Reagin and Treponema pallidum IgG and IgM [Interp] Cannot exclude recent Treponemal infection if specimen collected within 7-10 days after appearance of suspect lesions or 2-3 weeks after an exposure. Clinical correlation is required. 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 MATERNAL MEDICINE [facility] Radiology Study observation (narrative) [facility] 12-09-2024 EVANSN Telephone (NAVWST) LÓPEZ BRAVO ([id number]) 4 F Date Time Provider Department 12/09/24 RICH MURPHY During your visit today, we recorded the following information about you: Rich Murphy MSW 12/09/2024 11:31 AM Signed Yesenia tried call to patient to discuss transportation resource options. No answer and vmail is full. Rich Murphy MSW 12/09/2024 11:31 AM Signed Yesenia will send [...] Encounter Status:Closed by RICH MURPHY on 12/20/24 [facility] 12-08-2024 CNPN Telephone (OBGYWM) LÓPEZ BRAVO ([id number]) 4 F Date Time Provider Department 12/08/24 LIDIA RAZAWShania During your visit today, we recorded the following information about you: Lidia Raza APRN.CNM 12/08/2024 4:11 PM Signed Did patient transfer care? No office visit since 16 weeks. Can you please assist in scheduling soonest appointment this week or find out if she transferred. Would recommend repeat growth US in our office. Measuring behind and recommend follow up US. JONAH Kothari Lindsey, RN 12/08/2024 4:37 PM Signed Spoke with patient and states she was still planning on continuing care here at [place]. Patient states she has problems with transportation because her mom boyfriend is the only one with a car and he works [employer]. Patient states she also gets sick on the car ride. Discussed with patient possibly getting care in [place] at [employer] office there at it is closer or [...] GILBERT Mercedes as well. PREETI Orona Erin, DEJON 12/13/2024 11:55 AM Signed See Sw 12/09 note regarding Sw response to below message. Lidia Raza APRN.CNM 12/13/2024 12:28 PM Signed Thank you. Please assist patient in getting an appointment and then she can schedule transportation after discussing with medicaid. Thank you, JONAH Kothari Trisha, RN 12/13/2024 4:07 PM Signed Patient scheduled for growth u/s and OB visit on 12/20. 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 L[facility]PEZ BRAVO ([id number]) 4 F Date Time Provider Department 12/06/24 LIDIA RAZA During your visit today, we recorded the following information about you: Lizeth Gleason RN 12/06/2024 9:06 AM Signed Received breast pump RX from [employer]. To BLADIMIR to sign. PREETI Cox Trisha, [...] Encounter Status:Closed by VAL LIU on 12/06/24 [facility] 11-30-2024 [facility] Telephone (OBGYWM) LÓPEZ BRAVO ([id number]) 4 F Date Time Provider Department 11/30/24 [...] for 16 week visit. Had anatomy at [place]. Please advise. Please call mother's phone as patient is going to try and get some rest. [phone] PREETI Cox Karmon, MD 11/30/2024 11:31 AM [...] Status:Closed by LILLIAN AVILEZ on 11/30/[address] [facility] OB REPEATon 11-25-2024 US OB REPEAT [address] [address] Patient: LÓPEZ BRAVO Phone#: : 2000 Age: 24 Gender: F Pt. Type: Out Account: [id number] Location: 052 Ordering: LIDIA RAZA Exam Date: 11/25/2024/12:56 Family Phys: LIDIA COYNE Charge Code: 089908 Physician: [place] Order #: [id number] Dose#: PROCEDURE: OB REPEAT ULTRASOUND, TRANSABDOMINAL COMPARISON: [facility], , OB INITIAL <14 WEEKS, 09/24/2024, 14:47. INDICATIONS: [...] Report - Page 2 of 2 Patient: MISTI BRAVOA Phone#: : 2000 Age: 24 Gender: F Pt. Type: Out Account: [id number] Location: [facility] Ordering: LIDIA RAZA Exam Date: 11/25/2024/12:56 Family Phys: LIDIA COYNE Charge Code: 250560 Physician: Y[place] Order #: [id number] Dose#: Approved by: Bailey Rodriguez MD on 11/25/2024 at 17:02 [facility] 11-15-2024 [facility] (OBGYWM) MAULIKLÓPEZ ([id number]) 4 F Date Time Provider Department 11/15/24 LIDIA RAZA During your visit today, we recorded the following information about you: Lizeth Gleason RN 11/15/2024 4:45 PM Signed 20w6d Patient's anatomy US on 11/23 was only scheduled for 30 min. Our next 60 min opening is 11/30/24. Patient may want to have her anatomy at [place] if they have a sooner visit. If so, she will send us a [employer] message with their fax number. Otherwise she will schedule in our office. Patient lives an hour away and has transportation issues. Advised that we could direct to our manager social responsibility for transportation resources. Patient states her mom's friend offered to drive her. PREETI Cox Jennifer, RN 11/16/2024 8:54 AM Signed Patient sent [employer] message with [facility] fax [facility]. Lizeth Gleason RN Allergies As [...] Encounter Status:Closed by LIZETH GLEASON on 11/16/24 [facility] CV ECHO COMPLETE CV ECHO COMPLETE [place] [address] Patient: LÓPEZ BRAVO Phone#: : 2000 Age: 24 Gender: F Pt. Type: Out Account: [id number] Location: 052 Ordering: BARRY LARRY Exam Date: 10/29/2024/14:01 Family Phys: LIDIA COYNE Charge Code: 939758 Physician: Yuma Order #: [id number] Dose#: PROCEDURE: ECHOCARDIOGRAM WITH DOPPLER AND COLOR FLOW HISTORY: Patient is 74-year-old female with tachycardia INDICATIONS: Tachycarida COMPARISON: None. TECHNIQUE: A 2-D ultrasound, color spectral Doppler and M-mode evaluation of the heart and great vessels. PATIENT MEASUREMENTS: Height (in.): 62 BSA: 1.78 Weight (lbs.): 168 BP: 117/74 Child Care Supervisor: CARI M MODE 2D MEASUREMENTS AND CALCULATIONS: [...] 24 Gender: F Pt. Type: Out Account: [id number] Location: [facility] Ordering: BARRY LARRY Exam Date: 10/29/2024/14:01 Family Phys: LIDIA COYNE Charge Code: 288156 Physician: Yuma Order #: [id number] Dose#: MV V2 mean: 0.52 m/s MV [...] 24 Gender: F Pt. 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 She did not discuss this at visit last week. Next visit is 11/10/24. PREETI García Jessica, APRN.ESTELA 10/18/2024 1:31 PM Signed I am sorry [...] Encounter Status:Closed by VAL LIU on 10/19/24 [facility] 10-15-2024 CNPN Telephone (OBGYWM) LÓPEZ BRAVO ([id number]) 4 F Date Time Provider Department 10/15/24 STEFANIE CAMPBELL During your visit today, we recorded the following information about you: Pina Perea, RN 10/15/2024 12:40 PM Signed Please call patient and confirm her metoprolol dose. Also recommended an echo. Is she getting that at [facility] or can I order it at [facility]? Thanks! MD Brit Medina Lindsey, RN 10/15/2024 12:40 PM Signed Attempted to contact patient but no answer and unable to leave a message as voicemail box is full. [employer] message sent. PREETI Orona Lindsey, RN 10/15/2024 3:27 PM Signed Patient called back and states she is currently taking Metoprolol 50 mg BID. Patient states she is scheduled for her echocardiogram on 10/27 at [facility]. PREETI Orona Karmon, MD 10/15/2024 3:57 PM [...] Status:Closed by VAL LIU on 10/15/24 Normal [facility] Bacteria Ur Culton Bacteria identified Cx Nom (U) ORGANISM ID: 1 50,000-<100,000 CFU/ml Normal urogenital delores Normal [facility] Comment on above: Performed By: #### 6 30-4 ####[facility] LABCLIA [id number] [place] [address] [place] CBC W Auto Differential pane l (Bld)on 10-14-2024 Basophils (Bld) [#/Vol] 10*3/uL Normal <0.11 [facility] Comment on above: Order Comment: Speci men Type: BLOOD SPECIMENOrdering Facility: [facility] Address: [address] [place] [address] Performed By: #### 5 7021-8 ####[facility] MILLWPRLIA [id number] [place] [address] [place] Basophils/100 WBC (Bld) 0.2 % Normal [facility] Comment on above: Order Comment: Speci men Type: BLOOD SPECIMENOrdering Facility: [facility] Address: [address] [place] [address] Performed By: #### 5 7021-8 ####[facility] [id number] [place] [address] [place] Differential cell count method Nom (Bld) Auto Normal [facility] Comment on above: Order Comment: Speci men Type: BLOOD SPECIMENOrdering Facility: [facility] Address: [address] [place] [address] Performed By: #### 5 7021-8 ####[facility] [id number] [place] [address] [place] Eosinophils (Bld) [#/Vol] 0.06 10*3/uL Normal <0.46 [facility] Comment on above: Order Comment: Speci men Type: BLOOD SPECIMENOrdering Facility: [facility] Address: [address] [place] [address] Performed By: #### 5 7021-8 ####[facility] [id number] [place] [address] [place] Eosinophils/100 WBC (Bld) 0.6 % Normal [facility] Comment on above: Order Comment: Speci men Type: BLOOD SPECIMENOrdering Facility: [facility] Address: [address] [place] [address] Performed By: #### 5 7021-8 ####[facility] MARTINE [id number] [place] [address] [place] Erythrocyte distribution width (RBC) [Ratio] 17.1 % High 11.5-15.0 [facility] Comment on above: Order Comment: Speci men Type: BLOOD SPECIMENOrdering Facility: [facility] Address: [address] [place] [address] Performed By: #### 5 7021-8 ####[facility] [id number] [place] [address] [place] Hematocrit (Bld) [Volume fraction] 37.5 % Normal 36.0-46.0 [facility] Comment on above: Order Comment: Speci men Type: BLOOD SPECIMENOrdering Facility: [facility] Address: [address] [place] [address] Performed By: #### 5 7021-8 ####[facility]ER[facility] [id number] [place] [address] [place] Hemoglobin (Bld) [Mass/Vol] 12.6 g/dL Normal 11.5-15.5 [facility] Comment on above: Order Comment: Speci men Type: BLOOD SPECIMENOrdering Facility: [facility] Address: [address] [place] [address] Performed By: #### 5 7021-8 ####[facility] [id number] [place] [address] [place] Immature granulocytes (Bld) [#/Vol] 0.04 10*3/uL Normal <0.10 [facility] Comment on above: Order Comment: Speci men Type: BLOOD SPECIMENOrdering Facility: [facility] Address: [address] [place] [address] Performed By: #### 5 7021-8 ####[facility] [id number] [place] [address] [place] Immature granulocytes/100 WBC (Bld) 0.4 % Normal [facility] Comment on above: Order Comment: Speci men Type: BLOOD SPECIMENOrdering Facility: [facility] Address: [address] [place] [address] Performed By: #### 5 7021-8 ####[facility] [id number] [place] [address] [place] Lymphocytes (Bld) [#/Vol] 1.74 10*3/uL Normal 1.00-4.00 [facility] Comment on above: Order Comment: Speci men Type: BLOOD SPECIMENOrdering Facility: [facility] Address: [address] [place] [address] Performed By: #### 5 7021-8 ####[facility] [id number] [place] [address] [place] Lymphocytes/100 WBC (Bld) 17.3 % Normal [facility] Comment on above: Order Comment: Speci men Type: BLOOD SPECIMENOrdering Facility: [facility] Address: [address] [place] [address] Performed By: #### 5 7021-8 ####[facility] [id number] [place] [address] [place] MCH (RBC) [Entitic mass] 30.4 pg Normal 26.0-34.0 [facility] Comment on above: Order Comment: Speci men Type: BLOOD SPECIMENOrdering Facility: [facility] Address: [address] [place] [address] Performed By: #### 5 7021-8 ####[facility] [id number] [place] [address] [place] MCHC (RBC) [Mass/Vol] 33.6 g/dL Normal 30.5-36.0 [facility] Comment on above: Order Comment: Speci men Type: BLOOD SPECIMENOrdering Facility: [facility] Address: [address] [place] [address] Performed By: #### 5 7021-8 ####[facility] [id number] [place] [address] [place] MCV (RBC) [Entitic vol] 90.4 fL Normal 80.0-100.0 [facility] Comment on above: Order Comment: Speci men Type: BLOOD SPECIMENOrdering Facility: [facility] Address: [address] [place] [address] Performed By: #### 5 7021-8 ####[facility] [id number] [place] [address] [place] Monocytes (Bld) [#/Vol] 0.44 10*3/uL Normal <0.87 [facility] Comment on above: Order Comment: Speci men Type: BLOOD SPECIMENOrdering Facility: [facility] Address: [address] [place] [address] Performed By: #### 5 7021-8 ####[facility] [id number] [place] [address] [place] Monocytes/100 WBC (Bld) 4.4 % Normal [facility] Comment on above: Order Comment: Speci men Type: BLOOD SPECIMENOrdering Facility: [facility] Address: [address] [place] [address] Performed By: #### 5 7021-8 ####[facility] [id number] [place] [address] [place] Neutrophils (Bld) [#/Vol] 7.76 10*3/uL High 1.45-7.50 [facility] Comment on above: Order Comment: Speci men Type: BLOOD SPECIMENOrdering Facility: [facility] Address: [address] [place] [address] Performed By: #### 5 7021-8 ####[facility] ROSANGELAMARQUIS [id number] [place] [address] [place] Neutrophils/100 WBC (Bld) 77.1 % Normal [facility] Comment on above: Order Comment: Speci men Type: BLOOD SPECIMENOrdering Facility: [facility] Address: [address] [place] [address] Performed By: #### 5 7021-8 ####[facility] [id number] [place] [address] [place] Nucleated RBC (Bld) [#/Vol] 10*3/uL Normal <0.01 [facility] Comment on above: Order Comment: Speci men Type: BLOOD SPECIMENOrdering Facility: [facility] Address: [address] [place] [address] Performed By: #### 5 7021-8 ####[facility] [id number] [place] [address] [place] Nucleated RBC/100 WBC (Bld) [Ratio] 0.0 /100 WBC Normal [facility] Comment on above: Order Comment: Speci men Type: BLOOD SPECIMENOrdering Facility: [facility] Address: [address] [place] [address] Performed By: #### 5 7021-8 ####[facility] [id number] [place] [address] [place] Platelet mean volume (Bld) [Entitic vol] 11.3 fL Normal 9.0-12.7 [facility] Comment on above: Order Comment: Speci men Type: BLOOD SPECIMENOrdering Facility: [facility] Address: [address] [place] [address] Performed By: #### 5 7021-8 ####[facility] [id number] [place] [address] [place] Platelets (Bld) [#/Vol] 221 10*3/uL Normal 150-400 [facility] Comment on above: Order Comment: Speci men Type: BLOOD SPECIMENOrdering Facility: [facility] Address: [address] [place] [address] Performed By: #### 5 7021-8 ####[facility] [id number] [place] [address] [place] RBC (Bld) [#/Vol] 4.15 10*6/uL Normal 3.90-5.20 [facility] Comment on above: Order Comment: Speci men Type: BLOOD SPECIMENOrdering Facility: [facility] Address: [address] [place] [address] Performed By: #### 5 7021-8 ####[facility] [id number] [place] [address] [place] WBC (Bld) [#/Vol] 10.06 10*3/uL Normal 3.70-11.00 [facility] Comment on above: Order Comment: Speci men Type: BLOOD SPECIMENOrdering Facility: [facility] Address: [address] [place] [address] Performed By: #### 5 7021-8 ####[facility] [id number] [place] [address] [place] HBV surface Ag Ser Qlon 03-0 HBV surface Ag Ql (S) Negative Normal Negative [facility] Comment on above: Order Comment: Speci men Type: BLOOD SPECIMENOrdering Facility: [facility] Address: [address] [place] [address] Performed By: #### 5 195-3, MICRO, 74615-3, 27019-6 ####[facility] LABCLIA [id number] [place] [address] [place] HCV Ab Ser Qlon 10-14-2024 HCV Ab Ql (S) Negative Normal Negative [facility] Comment on above: Order Comment: Speci men Type: BLOOD SPECIMENOrdering Facility: [facility] Address: [address] [place] [address] Result Comment: The result suggests no evidence of active infection with Hepatitis C virus. Should recent infection be suspected, repeat testing may be considered 4-6 weeks after this draw. Performed By: #### 1 6128-1 ####[facility] LABCLIA [id number] [place] [address] [place] HIV 1+2 Ab IA Qlon HIV 1 and 2 Ab IA.rapid Nom (S/P/Bld) Normal [facility] Comment on above: Order Comment: Speci men Type: BLOOD SPECIMENOrdering Facility: [facility] Address: [address] [place] [address] Result Comment: Test not indicated. Performed By: #### 5 195-3, MICRO, 29915-5, 34773-6 ####[facility] LABIA [id number] [place] [address] [place] HIV 1+2 Ab+HIV1 p24 Ag IA Ql Non-Reactive Normal Nonreactive [facility] Comment on above: Order Comment: Speci men Type: BLOOD SPECIMENOrdering Facility: [facility] Address: [address] [place] [address] Performed By: #### 5 195-3, MICRO, 13371-2, 89921-5 ####[facility] LABIA [id number] [place] [address] [place] HIV immunoassay testing algorithm interpretation (S/P/Bld) [Interp] Normal [facility] Comment on above: Order Comment: Speci men Type: BLOOD SPECIMENOrdering Facility: [facility] Address: [address] [place] [address] Result Comment: No e vidence of HIV-1 or HIV-2 infection. Should recent infection be suspected, repeat testing may be considered 2-3 weeks after this draw. [place] Rev. Code 3701.243(E): This information has been [...] test results or diagnoses. Performed By: #### 5 195-3, MICRO, 36586-0, 38771-8 ####[facility] LABCLIA [id number] [place] HbA1c (Bld)on 10-14-2024 Average glucose Estimated from glycated hemoglobin (Bld) [Mass/Vol] 97 mg/dL Normal [facility] Comment on above: Order Comment: Speci men Type: BLOOD SPECIMENOrdering Facility: [facility] Address: [address] [place] [address] Result Comment: eAG: (Estimated average glucose) is a calculated value from HgbA1c and is commercial representative of the average blood glucose level in the last 2-3 month period. Performed By: #### 5 5454-3 ####[facility] LABCLIA [id number] [place] [address] [place] [facility] HbA1c (Bld) [Mass fraction] 5.0 % Normal 4.3-5.6 [facility] Comment on above: Order Comment: Speci men Type: BLOOD SPECIMENOrdering Facility: [facility] Address: [address] [place] [address] Result Comment: Amer ican Diabetes Association guidelines indicate that patients with HgbA1c in the range 5.7-6.4% are at increased risk for development of diabetes, and intervention by lifestyle modification may be beneficial. HgbA1c greater or equal to 6.5% is considered diagnostic of diabetes. Performed By: #### 5 5454-3 ####[facility] LABCLIA [id number] [place] [address] [place] [id number] PLUSon 10-14-2024 Cell-free DNA./Cell-free DNA.total Dosage of chromosome-specific cfDNA (cfDNA) [Molar fraction] 23% Normal [facility] Comment on above: Order Comment: Speci men Type: BLOOD SPECIMENOrdering Facility: [facility] Address: [address] [place] [address] Performed By: #### M AT21 ####[facility] LABCLIA [id number] [place] [address] Chr 13+18+21+X+Y aneuploidy Dosage of chromosome-specific cfDNA Ql (cfDNA) Negative Normal [facility] Comment on above: Order Comment: Speci men Type: BLOOD SPECIMENOrdering Facility: [facility] Address: [address] [place] [address] Performed By: #### M AT21 ####[facility] LABCLIA [id number] [place] [address] Chr 21 trisomy Dosage of chromosome-specific cfDNA Ql (cfDNA) Negative Normal [facility] Comment on above: Order Comment: Speci men Type: BLOOD SPECIMENOrdering Facility: [facility] Address: [address] [place] [address] Performed By: #### M AT21 ####[facility] LABCLIA [id number] [place] [address] Chr X and Y aneuploidy risk Sequencing Ql (cfDNA) [Interp] Not detected Normal [facility] Comment on above: Order Comment: Speci men Type: BLOOD SPECIMENOrdering Facility: [facility] Address: [address] [place] [address] Result Comment: Not Detected Not Detected Performed By: #### M AT21 ####[facility] LABCLIA [id number] [place] [address] Citation Liban (Reference lab test) Comment Normal [facility] Comment on above: Order Comment: Speci men Type: BLOOD SPECIMENOrdering Facility: [facility] Address: [address] [place] [address] Result Comment: 1. P johnnie SOMERS, et al. Eva Med. 2012;14(3):296-305. 2. Sánchez BREEN et al. Prenat Diag. 2013;33(6):591-597. 3. Jozef Blanco et al. Clin Chem. 2015 Apr;61(4):608-616. 4. Devante SOMERS, et al. Eva Med. 2011;13(11):913-920. 5. ACOG/SMFM Practice Bulletin No. 226, May 2020. Performed By: #### M AT21 ####[facility] LABCLIA [id number] [place] [address] Gestational age Estimated from conception date Villafuerte Normal [facility] Comment on above: Order Comment: Speci men Type: BLOOD SPECIMENOrdering Facility: [facility] Address: [address] [place] [address] Performed By: #### M AT21 ####[facility] LABCLIA [id number] [place] [address] GESTATIONALAGE AGE > OR = 9W Yes Normal [facility] Comment on above: Order Comment: Tara barajas Type: BLOOD SPECIMENOrdering Facility: [facility] Address: [address] [place] [address] Performed By: #### M AT21 ####[facility] LABCLIA [id number] [place] [address] Laboratory comment Liban (Report) Comment Normal [facility] Comment on above: Order Comment: Isauroi karl Type: BLOOD SPECIMENOrdering Facility: [facility] Address: [address] [place] [address] Result Comment: The MaterniT(R) 21 PLUS laboratory-developed test (LDT) analyzes circulating cell-free DNA from a maternal blood sample. This test is used for screening purposes and not diagnostic. Clinical correlation is recommended. Validation data on twin pregnancies is limited and the ability of this test to detect aneuploidy in higher multiple gestations has not yet been validated. Performed By: #### M AT21 ####[facility] LABCLIA [id number] [place] [address] director of marketing [employer] performance [employer] name Nom (Provider) Comment Normal [facility] Comment on above: Order Comment: Speci men Type: BLOOD SPECIMENOrdering Facility: [facility] Address: [address] [place] [address] Result Comment: This specimen showed an expected representation of chromosome 21, 18 and 13 material. Clinical correlation is suggested. Comment Stoney Avery MD, PhD, Director, [facility] Performed By: #### M AT21 ####[facility] LABCLIA [id number] [place] [address] LIMITATIONS OF THE TEST Comment Normal [facility] Comment on above: Order Comment: Speci men Type: BLOOD SPECIMENOrdering Facility: [facility] Address: [address] [place] [address] Result Comment: Whniyah e the results of these tests are highly [...] and Fragmin(R)). Performed By: #### M AT21 ####[facility]top[facility] [id number] [place] [address] Monosomy X risk Dosage of chromosome-specific cfDNA Ql (Plasma cell-free+WBC DNA) [Interp] Not detected Normal [facility] Comment on above: Order Comment: Speci men Type: BLOOD SPECIMENOrdering Facility: [facility] Address: [address] [place] [address] Performed By: #### M AT21 ####[facility] LABCLIA [id number] [place] [address] NEGATIVE PREDICTIVE VALUE Note Normal [facility] Comment on above: Order Comment: Speci men Type: BLOOD SPECIMENOrdering Facility: [facility] Address: [address] [place] [address] Result Comment: The Negative Predictive Value (NPV) for trisomy 21, 18, and 13 is greater than 99%. The NPV for SCA and ESS cannot be calculated as SCA and ESS are only reported when an abnormality is detected. Performed By: #### M AT21 ####[facility] LABCLIA [id number] [place] [address] PERFORMANCE CHARACTERISTICS Note Normal [facility] Comment on above: Order Comment: Speci men Type: BLOOD SPECIMENOrdering Facility: [facility] Address: [address], [place] [address] Result Comment: ! Sex ! Accuracy: 99.4% [...] ! ! ! * As reported in [facility] database nstd37 [https://www.ncbi.nlm.nih.gov/dbvar/studies/nstd37/ ] # [...] gestation only. Performed By: #### M AT21 ####[facility]top[facility] [id number] [place] [address] POSITIVE PREDICTIVE VALUE N/A Normal [facility] Comment on above: Order Comment: Speci men Type: BLOOD SPECIMENOrdering Facility: [facility] Address: [address] [place] [address] Performed By: #### M AT21 ####[facility] LABCLIA [id number] [place] [address] Reference Lab Test Method Comment Normal [facility] Comment on above: Order Comment: Tara barajas Type: BLOOD SPECIMENOrdering Facility: [facility] Address: [address] [place] [address] Result Comment: See Notes Circulating cell-free DNA [...] and 22. Performed By: #### M AT21 ####[facility] LABComsenzIA [id number] [place] [address] Service comment (Unsp spec) [Interp] Comment Normal [facility] Comment on above: Order Comment: Speci men Type: BLOOD SPECIMENOrdering Facility: [facility] Address: [address] [place] [address] Result Comment: See Notes [employer] is a subsidiary of [employer], using the brand [employer]. This test was developed and its performance characteristics determined by [employer]. It has not been cleared or approved by the Food and Drug Administration. This laboratory is certified under the Clinical Laboratory Improvement Amendments (CLIA) as qualified to perform high complexity clinical laboratory testing and accredited by the College of [employer] Pathologists (CAP). If there is future clinical need for adding MaterniT GENOME testing, this specimen will be available until term. [facility] samples will not be retained beyond 60 days. [facility] patients will have to send a new sample for re-sequencing ([facility] Test Code: [id number]). Performed By: #### M AT21 ####Etop[facility]IA [id number] [place] [address] Sex Dosage of chromosome-specific cfDNA Nom (cfDNA) Comment Normal [facility] Comment on above: Order Comment: Speci men Type: BLOOD SPECIMENOrdering Facility: [facility] Address: [address] [place] [address] Result Comment: Cons istent with Female Performed By: #### M AT21 ####[facility] LABComsenzIA [id number] [place] [address] Test performance information Liban (Unsp spec) Comment Normal [facility] Comment on above: Order Comment: Speci men Type: BLOOD SPECIMENOrdering Facility: [facility] Address: [address] [place] [address] Result Comment: The performance characteristics of the MaterniT(R) 21 PLUS laboratory-developed test (LDT) have been determined in a clinical validation study with women at increased risk for chromosomal aneuploidy.[1-4] Performed By: #### M AT21 ####[facility] LABCLIA [id number] [place] [address] Trisomy 13 risk Dosage of chromosome-specific cfDNA Ql (cfDNA) [Interp] Negative Normal [facility] Comment on above: Order Comment: Speci men Type: BLOOD SPECIMENOrdering Facility: [facility] Address: [address] [place] [address] Performed By: #### M AT21 ####[facility] LABCLIA [id number] [place] [address] Trisomy 18 risk Dosage of chromosome-specific cfDNA Ql (Plasma cell-free+WBC DNA) [Interp] Negative Normal [facility] Comment on above: Order Comment: Speci [facility] Type: BLOOD SPECIMENOrdering Facility: [facility] Address: [address] [place] [address] Performed By: #### M AT21 ####[facility] LABCLIA [id number] [place] [id number] RUBELLA IGG ANTIBODYon 10-14 RUBELLA IGG AB, QUAL Positive Normal Positive [facility] Comment on above: Order Comment: Speci [facility] Type: BLOOD SPECIMENOrdering Facility: [facility] Address: [address] [place] [address] Result Comment: The result suggests recent or past exposure to Rubella virus or history of Rubella vaccination. Positive result may also be seen due to presence of passively-transferred antibodies. Please correlate with patient's history. Performed By: #### R UBIGG ####[facility] LABCLIA [id number] [place] [address] [place] Reagin and Treponema pallidu m IgG and IgM [Interp]on 10-14-2024 T. pallidum IgG+IgM IA Ql (S) Non-Reactive Normal Nonreactive [facility] Comment on above: Order Comment: Speci [facility] Type: BLOOD SPECIMENOrdering Facility: [facility] Address: [address] [place] [address] Performed By: #### 5 195-3, MICRO, 15228-6, 81750-5 ####[facility] LABCLIA [id number] [place] [address] [place] Reagin+T pallidum IgG+IgM Se rPl-Impon 10-14-2024 Reagin and Treponema pallidum IgG and IgM [Interp] Cannot exclude recent Treponemal infection if specimen collected within 7-10 days after appearance of suspect lesions or 2-3 weeks after an exposure. Clinical correlation is required. Normal [facility] Comment on above: Order Comment: Speci men Type: BLOOD SPECIMENOrdering Facility: [facility] Address: [address] [place] [address] Performed By: #### 5 195-3, MICRO, 52084-6, 60527-8 ####[facility] LABCLIA [id number] [place] [address] [place] T4 Free SerPl-mCncon 025 Free T4 [Mass/Vol] 1.0 ng/dL Normal 0.9-1.7 [facility] Comment on above: Order Comment: Speci men Type: BLOOD SPECIMENOrdering Facility: [facility] Address: [address] [place] [address] Performed By: #### 3 024-7, 3016-3 ####[facility] LABORATORYCLIA [id number] [place] [id number] [place] THYROID PEROXIDASE ANTIBODYo n 10-14-2024 TPO Ab Qn [IU]/mL Normal <5.6 [facility] Comment on above: Order Comment: Speci [facility] Type: BLOOD SPECIMENOrdering Facility: [facility] Address: [address] [place] [address] Result Comment: Thyr oid Peroxidase Antibody test is used as an aid in diagnosis of autoimmune thyroid disease. Clinical correlation is required. Performed By: #### 5 195-3, MICRO, 87092-6, 92532-5 ####[facility] LABCLIA [id number] [place] [address] [place] TSH SerPl-aCncon 10-14-2024 TSH Qn 1.740 m[IU]/L Normal 0.270-4.200 [facility] Comment on above: Order Comment: Speci men Type: BLOOD SPECIMENOrdering Facility: [facility] Address: [address] [place] [address] Result Comment: If t he patient is , TSH reference range varies by gestational period: First Trimester (weeks 9-12): 0.180-2.990 mIU/L Second Trimester: 0.110-3.980 mIU/L Third Trimester: 0.480-4.710 mIU/L Darrick Ramires et al. A Practical Approach for the Verifications and Determination of Site- and Trimester-Specific Reference Intervals for Thyroid Function tests in . Thyroid, 2019:29:3:412-420. William E, et al. 2017 Guidelines of the [place] Thyroid Association for the Diagnosis and Management of Thyroid Disease during and the . Thyroid, 2017:27:3:315-389. Performed By: #### 3 024-7, 3016-3 ####[facility] LABORATORYIA [id number] [address] STATES OF [facility] TYPE + SCREEN PRENATALon ABO A Normal [facility] Comment on above: Order Comment: Speci men Type: BLOOD SPECIMENOrdering Facility: [facility] Address: [address] [place] [address] Performed By: #### T SPN ####[facility] BLOOD BANKCLIA [id number] [place] [address] [place] Rh Nom (Bld) Positive Normal [facility] Comment on above: Order Comment: Speci men Type: BLOOD SPECIMENOrdering Facility: [facility] Address: [address] [place] [address] Performed By: #### T SPN ####[facility] MA[facility] BLOOD BANKCLIA [id number] [place] [address] [place] TYPE AND SCREEN EXPIRATION 10/17/2024 22:59 Normal [facility] Comment on above: Order Comment: Speci men Type: BLOOD SPECIMENOrdering Facility: [facility] Address: [address] [place] [address] Performed By: #### T N ####[facility] [id number] [facility] [id number] [id number] [facility] [place] 10-06-2024 CNPN Telephone (OBGYWM) MAULIKLÓPEZ ([id number]) 4 F Date Time Provider Department 10/06/24 LIDIA RAZA During your visit today, we recorded the following information about you: Isis Morse LPN 10/06/2024 4:24 PM Signed Ob patient is 15w1d and called stating that she is scheduled for an ultrasound tomorrow at [facility]. Patient thought the order was for an anatomy ultrasound. Is this an early anatomy ultrasound? Patient cancelled nuchal ultrasound on 09/27/2024 that was scheduled here and order was faxed to [place] and they scheduled patient for tomorrow. Please [...] was told to get labs drawn at [facility] Allergies As of Date: 10/06/2024 Noted Allergy [...] Encounter Status:Closed by ISIS MORSE on 10/06/24 [facility] [place] 09-27-2024 CNPN Telephone (OBGYWM) LÓPEZ BRAVO ([id number]) 4 F Date Time Provider Department 09/27/24 LIDIA RAZA During your visit today, we recorded the following information about you: Lillian Avilez RN 09/27/2024 8:45 AM Signed 13w6d Pt went to [facility] 09/24/24 as advised. US of abdomen completed. [...] asking if Nuchal can be done at [facility]. Pt's next OB appt is currently [...] in the next week can get at [facility], fax order and recommend within the [...] notified, lab and US orders faxed to [facility]. Pt does want [id number] and interested in knowing gender. Unsure if [facility] does this-Pt is going to call and check and will let office know. Pt also advised to call [facility] to get lab and US appt scheduled for this week and keep OB appt scheduled for 10/12/24. Pt voiced understanding. PREETI Patel Tara, RN 09/29/2024 5:00 PM Signed See Pt's Zwamyt message on telephone note from 09/24/24. Please sign [id number] order as current order in chart-status is pending future. Once filed, will print and fax order to [facility] and contact Pt. Responded to Pt's Zwamyt message informing her BLADIMIR does not return to office until Friday. PREETI Patel Lindsey, RN 09/30/2024 3:49 PM Signed Patient notified and voiced understanding. Lab order faxed to [facility]. Pina Perea RN Allergies As of Date: 09/27/2024 Noted Allergy Reaction AMOXIL (AMOXICILLIN) 09/15/2024 8 - GI Upset Date Reviewed: 09/15/2024 Reviewed by: Enrrique Muñiz MA - Fully Assessed Reason for Visit: F/U ER visit [Other] Primary Visit Diagnosis:Encounter for screening of mother [Z36.9] Order(s):[id number] PLUS [SQMAT21] Order #: [id number] FUTURE Prescriptions as of 09/30/2024 - aspirin, [...] Status:Closed by ALBERT SWIFT on 09/30/24 Normal [facility] CBC + DIFFon 09-24-2024 Baso # 0.02 x10EE3/UL Normal 0.00 - 0.10 [facility] Comment on above: Performed By: #### 2 28873 #### [facility],[address] [place] [address] Basophils/100 WBC (Bld) 0.2 % Normal 0.0 - 2.0 [facility] Comment on above: Performed By: #### 2 12754 #### [facility],[address] [place] [address] CBC + DIFF Normal [facility] Comment on above: Result Comment: CBC- COMPLETE BLOOD COUNT Performed By: #### 2 34394 #### [facility],[address] [place] [address] EO # 0.04 x10EE3/UL Normal 0.00 - 0.50 [facility] Comment on above: Performed By: #### 2 36437 #### [facility],[address] [place], [place] [address] Eosinophils/100 WBC (Bld) 0.4 % Normal 0.0 - 7.0 [facility] Comment on above: Performed By: #### 2 11675 #### [facility],[address] [place], [place] [address] Erythrocyte distribution width (RBC) [Ratio] 15.7 % High 12.0 - 15.6 [facility] Comment on above: Performed By: #### 2 84168 #### [facility],[address] [place] [address] Hematocrit (Bld) [Volume fraction] 39.6 % Normal 34.0 - 46.0 [facility] Comment on above: Performed By: #### 2 85670 #### [facility],[address] [place] [address] Hemoglobin (Bld) [Mass/Vol] 13.1 g/dL Normal 12.0 - 16.0 [facility] Comment on above: Performed By: #### 2 91514 #### [facility],[address] [place] [address] Lymph # 1.33 x10EE3/UL Normal 0.80 - 2.80 [facility] Comment on above: Performed By: #### 2 96505 #### [facility],[address] [place], [place] [address] Lymphocytes/100 WBC (Bld) 12.5 % Low 20.0 - 45.0 [facility] Comment on above: Performed By: #### 2 46265 #### [facility],[address] [place], [place] [address] MANUAL DIFF N/A Normal [facility] Comment on above: Performed By: #### 2 66150 #### [facility],[address] [place] [address] 19937 MCH (RBC) [Entitic mass] 29 pg Normal 27 - 33 [facility] Comment on above: Performed By: #### 2 86122 #### [facility],[address] [place] [address]8415 MCHC 33 X10 3 Normal 32 - 36 [facility] Comment on above: Performed By: #### 2 91371 #### [facility],[address] [place] [address] 55384 MCV (RBC) [Entitic vol] 88 fL Normal 80 - 99 [facility] Comment on above: Performed By: #### 2 68987 #### [facility],[address] [place] [address] Evangeline # 0.51 x10EE3/UL Normal 0.20 - 1.00 [facility] Comment on above: Performed By: #### 2 36312 #### [facility],[address] [place] [address]44 MONOS % 4.8 % Normal 0.0 - 10.0 [facility] Comment on above: Performed By: #### 2 43527 #### [facility],[address] [place] [address]7538 Morphology Liban (Bld) [Interp] N/A Normal [facility] Comment on above: Performed By: #### 2 98811 #### [facility],[address] [place] [address]133 Neut # 8.71 x10EE3/UL High 1.50 - 7.10 [facility] Comment on above: Performed By: #### 2 26457 #### [facility],[address] [place], [place] [address] Neutrophils/100 WBC (Bld) 82.1 % High 46.0 - 76.0 [facility] Comment on above: Performed By: #### 2 61785 #### [facility],[address] [place], [place] [address] PLATELET 244 x10EE3/UL Normal 150 - 450 [facility] Comment on above: Performed By: #### 2 53233 #### [facility],[address] [place] [address]108 Platelet mean volume (Bld) [Entitic vol] 9.7 fL Normal 6.6 - 10.5 [facility] Comment on above: Result Comment: AUTO MATED DIFFERENTIAL Performed By: #### 2 57759 #### [facility],[address] [place] [address] 76593 RBC 4.52 x 10EE6/UL Normal 4.10 - 5.30 [facility] Comment on above: Performed By: #### 2 34548 #### [facility],[address] [place] [address] 95428 WBC 10.6 x 10EE3/UL Normal 4.5 - 10.8 [facility] Comment on above: Performed By: #### 2 59872 #### [facility],[address] [place] [address]291 CMP with eGFRon 09-24-2024 AGE 24 years Normal [facility] Comment on above: Performed By: #### 2 91440 #### [facility],[address] [place] [address]58 Albumin [Mass/Vol] 3.5 g/dL Normal 3.4 - 5.0 [facility] Comment on above: Performed By: #### 2 52681 #### [facility],[address] [place] [address] 96194 Albumin/Globulin [Mass ratio] 0.9 {ratio} Normal 0.9 - 1.6 [facility] Comment on above: Performed By: #### 2 49859 #### [facility],[address] [place] [address] 06744 ALK PHOS 55 U/L Normal 46 - 116 [facility] Comment on above: Performed By: #### 2 21196 #### [facility],[address] [place] [address] 25818 ALT [Catalytic activity/Vol] 47 U/L Normal 16 - 63 [facility] Comment on above: Performed By: #### 2 62496 #### [facility],[address] [place] [address] 60524 Anion gap [Moles/Vol] 19 mmol/L Normal 10 - 20 [facility] Comment on above: Performed By: #### 2 39284 #### [facility],[address] [place] [address] 07535 AST [Catalytic activity/Vol] 21 U/L Normal 13 - 39 [facility] Comment on above: Performed By: #### 2 19515 #### [facility],[address] [place] [address] 72567 B/C RATIO 10 ratio Normal 0 - 30 [facility] Comment on above: Performed By: #### 2 12407 #### [facility],[address] [place] [address] 94633 Bilirubin [Mass/Vol] 0.6 mg/dL Normal 0.2 - 1.0 [facility] Comment on above: Performed By: #### 2 32620 #### [facility],[address] [place] [address] [address] Calcium [Mass/Vol] 8.9 mg/dL Normal 8.5 - 10.1 [facility] Comment on above: Performed By: #### 2 20147 #### [facility],[address] [place] [address] 58586 Chloride [Moles/Vol] 101 mmol/L Normal 98 - 107 [facility] Comment on above: Performed By: #### 2 82770 #### [facility],[address] [place] [address] 55116 CMP with eGFR Normal [facility] Comment on above: Result Comment: COMP REHENSIVE METABOLIC PANEL Performed By: #### 2 12003 #### [facility],[address] [place] [address] 05320 CO2 [Moles/Vol] 22.0 mmol/L Normal 21.0 - 32.0 [facility] Comment on above: Performed By: #### 2 38735 #### [facility],[address] [place] [address] 60237 Creatinine [Mass/Vol] 0.61 mg/dL Normal 0.55 - 1.02 [facility] Comment on above: Performed By: #### 2 35677 #### [facility],[address] [place] [address] 83454 GFR/1.73 sq M.predicted among non-blacks MDRD (S/P/Bld) [Vol rate/Area] mL/min/{1.73_m2} Normal 60 - 999 [facility] Comment on above: Performed By: #### 2 02696 #### [facility],[address] [place] [address] 59400 Result Comment: ACCO RDING TO THE NATIONAL KIDNEY DISEASE EDUCATION PROGRAM(NKDE), A NORMAL eGFR IS A VALUE GREATER THAN OR EQUAL TO 60 ML/MIN/1.73 SQ METERS. CHRONIC KIDNEY DISEASE: <60mL/MIN/1.73 SQ METERS KIDNEY FAILURE: <15mL/MIN/1.73 SQ METERS THIS TEST SHOULD ONLY BE USED FOR PATIENTS 18 YEARS OF AGE AND OLDER. Globulin (S) [Mass/Vol] 4.1 g/dL High 1.5 - 3.8 [facility] Comment on above: Performed By: #### 2 21823 #### [facility],[address] [place] [address] 77867 Glucose [Mass/Vol] 91 mg/dL Normal 74 - 106 [facility] Comment on above: Performed By: #### 2 61298 #### [address] [address] Potassium [Moles/Vol] 3.5 mmol/L Normal 3.5 - 5.1 [facility] Comment on above: Performed By: #### 2 58547 #### [facility],[address] [place] [address] 40222 Protein [Mass/Vol] 7.6 g/dL Normal 6.4 - 8.2 [facility] Comment on above: Performed By: #### 2 31383 #### [facility],[address] [place] [address] 19376 Sodium [Moles/Vol] 138 mmol/L Normal 136 - 145 [facility] Comment on above: Performed By: #### 2 47172 #### [facility],[address] [place] [address] 50028 Urea nitrogen [Mass/Vol] 6 mg/dL Low 7 - 18 [facility] Comment on above: Performed By: #### 2 00247 #### [facility],[address] [place] [address] 30783 CNPNon 09-24-2024 CNPN Telephone (OBGYWM) LÓPEZ BRAVO ([id number]) 4 F Date Time Provider Department 09/24/24 LIZETH TATE During your visit today, we recorded the following information about you: Val Liu RN 09/24/2024 9:46 AM Signed 13w3d Calling with [...] Status:Closed by VAL LIU on 09/24/24 Normal [facility] ED MED ADMINISTRATION DETAIL on 09-24-2024 ED MED ADMINISTRATION DETAIL Documentation Designer Medication Administration Record [address] [place] [address] [id number] 09/24/2024 Patient: LÓPEZ BRAVO Sex: Female : [...] or swelling. IV flushed thoroughly pre-medication Antonino Israep, R.N. administration. IVP given by nurse. Information reviewed with Scanned patient and spouse including reason for taking this medication, signs of allergic reaction and precautions. Verbalizes understanding. - 16:56 Antonino Eastep, R.N. IV NS 0.9 % 1000 16:56 09/24 IV NS 0.9 % 1000 mL started in bag#1 1000 mL at Started mL at 999 mL/hr 999 mL/hr via Site# 1. Allergies verified and confirmed 5 rights. IV 16:56 09/24/2024 (NOW x1) patency established. IV site checked: no pain, redness, or swelling. Antonino Eastep, R.N. IV flushed thoroughly pre-medication administration. Information Stopped reviewed with patient and spouse including reason for taking this 19:26 09/24/2024 medication, signs of allergic reaction and precautions. Verbalizes John Booker R.N. understanding. - 16:56 Antonino Waller R.N. Scanned 19:09/24 Medication Discontinued: bag #1 completed. Total amount infused: 1000 mL. IV patency established. IV site checked: no pain, redness, or swelling. IV flushed thoroughly post-medication administration. - 19:51 John Booker R.N. 1 of 2 Documentation Designer Medication Ordered Medication Administration Date/Time CefTRIAXone 16:58 09/24 CefTRIAXone (Rocephin) IVPB 2gm/50ml NS 2 g Started (Rocephin) IVPB started at 100 mL/hr diluted in sodium chloride IVPB 0.9 % 16:58 09/24/2024 2gm/50ml NS 2 g Minibag+ 50 mL via Site# 1. Allergies verified and confirmed 5 Antonino Waller R.N. diluted in sodium rights. IV patency established. IV site checked: no pain, redness, or Stopped chloride IVPB 0.9 % swelling. IV flushed thoroughly pre-medication administration. 17:41 09/24/2024 Minibag+ 50 mL at Information reviewed with patient and spouse including reason for Jacob Baron, 100 mL/hr (NOW x1) taking this medication, signs of allergic reaction and precautions. E.M.T.-PAlyse Verbalizes understanding. - 17:01 Antonino Waller R.N. Scanned 17:41 09/24 Medication Discontinued: IV completed. Total amount infused: 50 mL. IV patency established. IV site checked: no pain, redness, or swelling. IV flushed thoroughly post-medication administration. - 17:41 Abe DriverT.-PAlyse 2 of 2 Normal [facility] ED NURSES CLINICAL NOTEon ED NURSES CLINICAL NOTE Nurse Narrative Nurse Clinical [address] [address] [phone] 09/24/2024 Patient: LÓPEZ BRAVO Sex: Female : 2000 Age: 24y Primary Insurance: [facility] Policy Number: [id number] Subscriber: Other Disposition: Discharge to Home Disposition Decision Time: 19:09/24/2024 Departure Time: 19:50 09/24/2024 TRIAGE Arrived by private vehicle. Historian: (patient). Triage time: 14:09/24/2024. Acuity: LEVEL 3. Chief Complaint: (RLQ pain). [...] assessment completed. No risk factors identified. -- 14:27 09/24/24 MIMI Valdez R.N. 14:28 09/24/24. PAST MEDICAL HX: status: currently . In 1st trimester. -- 14:28 09/24/24 MIMI Valdez R.N. Interventions 14:16 09/24/24. To waiting room. -- 14:09/24/24 MIMI Valdez R.N. 2 of 4 Nurse [...] report given (Kevan). ( Pt amb to Hallway bed in ED.). -- 16:44 09/24/24 MIMI [...] mL saline. -- 16:50 09/24/24 MIMI Waller R.N. 16:55 09/24/24. Zofran IVP 4 mg given [...] IV fl (more content not included)... Normal [facility] ED ORDER SHEET (CPOE ONLY)on 09-24-2024 ED ORDER SHEET (CPOE ONLY) Order Sheet Order Sheet [address] [place] [address] [id number] 09/24/2024 Patient: LÓPEZ BRAVO Sex: Female : 2000 Age: 24y MEASUREMENTS: Wt: 74.8 kg, Ht/Francesco: 62.0 in, BMI: 30.18 ALLERGIES: Penicillins, hpv avccine MEDICATION/IV/DRIP/FLUI D ORDERS Order Description Priority Entered Acknowledged Completed Zofran IVP4 mg (NOW x1) 16:33 09/24/2024 16:35 16:56 Nicolasa Liu D.O. 09/24/2024 09/24/2024 Antonino Sánchez, R.N. R.N. IV NS 0.9 %1000 mL at 999 16:33 09/24/2024 16:35 16:56 mL/hr (NOW x1) Nicolasa Liu D.O. 09/24/2024 09/24/2024 Antonino Sánchez, R.N. R.N. CefTRIAXone (Rocephin) IVPB 16:40 09/24/2024 16:49 17:01 2gm/50ml NS2 g diluted in Nicolasa Liu D.O. 09/24/2024 09/24/2024 sodium chloride IVPB 0.9 % Antonino Waller, Antonino Waller, Minibag+ 50 mL at 100 mL/hr R.N. R.N. (NOW x1) Reason for ordering with alerts: Does not appear to be a true allergy --16:40 09/24/2024 Nicolasa Liu D.O. LAB ORDERS Order Description Priority Entered Acknowledged Collected Completed 1 of 3 Order Sheet Urinalysis Stat Stat 14:40 09/24/2024 16:03 09/24/2024 16:03 09/24/2024 Thony Padron Lucas Eastep, Verbal Order, R.N. R.N. Auth by: Nicolasa Liu D.O. CBC w Diff Stat Stat 16:33 09/24/2024 16:35 09/24/2024 16:49 09/24/2024 Antonino Crews Lucas Eastep, D.OAlyse R.N. R.N. CMP Stat Stat 16:33 09/24/2024 16:35 09/24/2024 16:49 09/24/2024 Antonino Crews Lucas Eastep, D.OAlyse R.N. R.N. Lipase Stat Stat 16:33 09/24/2024 16:35 09/24/2024 16:49 09/24/2024 Antonino Crews Lucas Eastep, D.OAlyse R.N. R.N. Flu Swab (Influenzae Stat 16:33 09/24/2024 16:35 09/24/2024 16:49 09/24/2024 AAg) Stat Antonino Crews Lucas Eastep, D.O. R.NAlyse RAlyseNAlyse DIAGNOSTIC STUDY ORDERS Order Description Priority Entered Acknowledged Completed US OB<14WK Single Gestation Stat 14:40 09/24/2024 16:03 16:03 Stat Prakash PadronNAlyse 09/24/2024 09/24/2024 Verbal Order, Auth by: Antonino Sánchez Eric Csernyik, D.O. R.N. R.NAlyse Reason for Study: Pain US Kidneys Stat Stat 14:40 09/24/2024 16:03 16:03 Shea Padron.NAlyse 09/24/2024 09/24/2024 Verbal Order, Auth by: Antonino Sánchez Eric Csernyik, D.O. R.N. R.NAlyse 2 of 3 Order Sheet Reason for Study: Pain STAFF ORDERS Order Description Priority Entered Acknowledged Collected Completed IV Saline Lock 16:33 09/24/2024 16:35 09/24/2024 16:49 09/24/2024 Antonino Crews Lucas Eastep, D.O. R.N. R.NAlyse PO Fluids Stat; Stat 16:42 09/24/2024 16:49 09/24/2024 17:32 09/24/2024 (water/gatorade/popsicl e) Antonino Crews Lucas Eastep, D.O. R.N. R.NAlyse [Electronically signed by Nicolasa Liu D.O. (09/24/2024 16:34 EST)] [Electronically signed by Nicolasa Liu D.O. (09/24/2024 16:40 EST)] [Electronically signed by Nicolasa Liu D.O. (09/24/2024 16:42 EST)] 3 of 3 Normal [facility] ED PHYSICIAN CLINICAL REPORT on 09-24-2024 ED PHYSICIAN CLINICAL REPORT Narrative Physician Clinical Narrative [facility] [address] [place] [address] [id number] 09/24/2024 Patient: LÓPEZ BRAVO Sex: Female : 2000 Age: 24y Primary Insurance: [facility] Policy Number: [id number] Subscriber: Other Disposition: Discharge to Home Disposition [...] Abnormal NORMAL EST NORMAL: 09/24/2024 15:15 Sp Weldon 1.030 Final 1.010-1.030 EST NORMAL: 09/24/2024 15:15 Nitrite NEG Final NEGATIVE EST 500 NORMAL: 09/24 (more content not included)... Normal [facility] ED FORMERLY NAMED [facility] BILLon 09-24-2024 ED [place] [address] [place] [address] [phone] 09/24/2024 Patient: LÓPEZ BRAVO Sex: Female : 2000 Age: 24y Item Facility Professional Category Description Code Code Quantity Fee Total Drugs Normal Saline 459443 1 $0.00 $0.00 1000cc (814165) Nurse/E/M EMERGENCY 190200 1 $0.00 $0.00 DEPARTMENT VISIT HIGH/URGENT SEVERITY (85782-94) Nurse/IV/IM/Infusions Drip/IVPB initial 490018 1 $0.00 $0.00 (29077) Nurse/IV/IM/Infusions Hydration 619961 2 $0.00 $0.00 additional hour (99458) Nurse/IV/IM/Infusions IVP additional 784636 1 $0.00 $0.00 push (88449) Grand Total $0.00 Providers Nicolasa Liu D.O. 1 of 2 [facility] Chief Complaint ABDOMINAL PAIN and FLANK PAIN. Principal Diagnosis First trimester . Acute urinary tract infection with cystitis. No pyelonephritis or hematuria. Not associated with indwelling catheter. ICD-10 Codes N30.90: Cystitis, unspecified without hematuria Z34.91: Encounter for supervision of normal , unspecified, first trimester Z3A.00: Weeks of gestation of not specified 2 of 2 Normal [facility] ED VISIT SUMMARYon ED VISIT SUMMARY Visit Overview Visit Overview [facility] [address] [place] [address] [phone] 09/24/2024 Patient: LÓPEZ BRAVO Sex: Female : [...] 50 mg tablet,extended release 24 hr 1 of 3 Visit Overview Vitamin 27 mg iron-0.8 [...] right. SKIN: Skin is warm and dry. 2 of 3 Visit Overview VITAL SIGNS First Vitals Last Vitals Temp 14:23 09/24/24 98.3 F Temp 19:41 09/24/24 BP 14:23 09/24/24 123/78 BP 19:41 09/24/24 122/72 HR 14:23 09/24/24 96 HR 19:41 09/24/24 67 RR 14:23 09/24/24 16 RR 19:41 [...] CATHETER FIRST TRIMESTER 3 of 3 Normal [facility] ED VITALS FLOW SHEETon 09-24 ED VITALS FLOW SHEET Vitals Vital Sign Flow Sheet [address] [place] [address] [id number] 09/24/2024 Patient: LÓPEZ BRAVO Sex: Female : 2000 Age: 24y Measurements Wt: 74.8 kg, Ht/Francesco: 62.0 in, BMI: 30.18 Measured Time BP MAP HR RR O2Sat ETCO2 Temp Pain GCS RTS 19:41 09/24/2024 122/72 89 67 18 98% 14:23 09/24/2024 123/78 93 96 16 96% 98.3 F 0 1 of 1 Normal [facility] INFLUENZA VIRUS RAPID A/Bon 09-24-2024 INFLUENZA VIRUS [...] TO THREE DAYS. RESULT CRITICAL? NO Normal [facility] Comment on above: Performed By: #### 2 66556 ####[place] [address] LIPASEon 09-24-2024 Lipase [Catalytic activity/Vol] 29.0 U/L Normal 15.0 - 78.0 [facility] Comment on above: Result Comment: *PLE ASE NOTE THAT RANGES FOR LIPASE HAVE CHANGED OF 08/08/23 DUE TO AN ASSAY UPDATE BY THE FUR FINISHER SEAMSTRESS.THE NEW ASSAY RANGE IS 6-250 U/L, WITH A REFERENCE RANGE OF 16-77 U/L. Performed By: #### 2 89240 #### [place] [address] URINALYSISon 09-24-2024 Amorphous NONE Normal [facility] Comment on above: Performed By: #### 2 76541 #### [place] [address] Bacteria TRACE Normal [facility] Comment on above: Performed By: #### 2 60955 #### [place] [address] Bilirubin Ql (U) 1 Abnormal NORMAL: NEGATIVE [facility] Comment on above: Performed By: #### 2 24004 #### [address] [address] Casts NONE Normal [facility] Comment on above: Performed By: #### 2 79395 #### [facility],[address] [place] [address]041 Clarity (U) SL. CLOUDY Abnormal NORMAL: CLEAR [facility] Comment on above: Performed By: #### 2 08051 #### [facility],[address] [place], [place] [address] Color (U) brown Normal NORMAL: YELLOW [facility] Comment on above: Performed By: #### 2 88938 #### [facility],[address] [place] [address] Crystals LM Nom (Urine sed) NONE Normal [facility] Comment on above: Performed By: #### 2 36569 #### [facility],[address] [place], [place] [address] Epi Cells FEW Normal [facility] Comment on above: Performed By: #### 2 47078 #### [facility],[address] [place] [address] 96273 Glucose Ql (U) NORM Normal NORMAL: NORMAL [facility] Comment on above: Performed By: #### 2 01744 #### [facility],[address] [place] [address] 38733 Hemoglobin Ql (U) 150 Abnormal NORMAL: NEGATIVE [facility] Comment on above: Performed By: #### 2 78349 #### [facility],[address] [place] [address] 27508 Ketone 150 Abnormal NORMAL: NEGATIVE [facility] Comment on above: Performed By: #### 2 41092 #### [facility],[address] [place] [address] 32592 Leukocytes 500 Abnormal NORMAL: NEGATIVE [facility] Comment on above: Performed By: #### 2 82237 #### [facility],[address] [place], [place] [address] Mucous NONE Normal [facility] Comment on above: Performed By: #### 2 36721 #### [facility],[address] [place] [address] Nitrite Ql (U) Negative Normal NORMAL: NEGATIVE [facility] Comment on above: Performed By: #### 2 26174 #### [facility],[address] [place] [address] pH (U) 5 [pH] Normal NORMAL: 5.0-8.0 [facility] Comment on above: Performed By: #### 2 43867 #### [facility],[address] [place] [address] Protein Ql (U) 30 Abnormal NORMAL: NEGATIVE [facility] Comment on above: Performed By: #### 2 63828 #### [facility],[address] [place] [address] Rbc 5-10 Normal 0-3/hpf [facility] Comment on above: Performed By: #### 2 26616 #### [facility],[address] [place] [address] Sp Weldon 1.030 Normal NORMAL: 1.010-1.030 [facility] Comment on above: Performed By: #### 2 90963 #### [facility],[address] [place] [address] Specimen Type R Normal [facility] Comment on above: Performed By: #### 2 99097 #### [facility],[address] [place] [address] Urinalysis dipstick W Reflex Microscopic panel (U) SEE BELOW Normal [facility] Comment on above: Result Comment: MICR OSCOPIC Performed By: #### 2 39343 #### [facility],[address] [place] [address] Urobilinog 1 Abnormal NORMAL: NORMAL [facility] Comment on above: Performed By: #### 2 45133 #### [facility],[address] [place], [place] [address] Wbc 11-15 Normal 0-5/hpf [facility] Comment on above: Performed By: #### 2 02644 #### [facility],[address] [place] [address] 94996 Yeast NONE Normal [facility] Comment on above: Performed By: #### 2 45845 #### [facility],[address] [place] [address] 62986 US KIDNEYon 09-24-2024 US KIDNEY [place] [address] Patient: LÓPEZ BRAVO Phone#: : 2000 Age: 24 Gender: F Pt. Type: ER Account: [id number] Location: [facility] Ordering: NICOLASA LIU Exam Date: 09/24/2024/15:04 Family Phys: LIDIA COYNE Charge Code: 056489 Physician: [place] Order #: [id number] Dose#: PROCEDURE: KIDNEY ULTRASOUND COMPARISON: None. INDICATIONS: [...] or obstruction. OTHER: Gallbladder calculi are present. Rubber Engraver calculus is 8 millimeters. CONCLUSION: 1. Mild right-sided hydronephrosis. 2. Cholelithiasis. Dictated by: Pearl Hartman MD on 09/24/2024 at 15:21 Approved by: Pearl Hartman MD on 09/24/2024 at 15:23 Normal [facility] US OB INITIAL< 14 WEEKS; 1st GESTATIONon 09-24-2024 US OB INITIAL< 14 WEEKS; 1st GEST[address] [address] Patient: LÓPEZ BRAVO Phone#: : 2000 Age: 24 Gender: F Pt. Type: ER Account: [id number] Location: 052 Ordering: NICOLASA LIU Exam Date: 09/24/2024/14:47 Family Phys: LIDIA COYNE Charge Code: 847177 Physician: [place] Order #: [id number] Dose#: PROCEDURE: OB INITIAL <14 WEEKS ULTRASOUND, [...] Hartman MD on 09/24/2024 at 15:33 Normal [facility] 09-16-2024 CNPN Telephone (DOROTHYGYWM) LÓPEZ BRAVO ([id number]) [birth year] F Date Time Provider Department 09/16/24 LIDIA RAZA During your visit today, we recorded the following information about you: Lillian Avilez RN 09/16/2024 10:25 AM Signed Lidia Raza APRN.CNM P siria Ob-Medical Insurance Coding Specialist Pool Patient seen at [facility] yesterday. Can we please request records. I asked patient to request them to be sent but just want to make sure we get them. Thank you, Lidia Raza APRN.Lillian Ramey RN 09/16/2024 10:57 AM Addendum Called Pt to see if she had requested records be sent to our office after cardiology visit yesterday. Pt stated she did. Pt then began to elaborate how she was so pleased with the kindness of our office, but was very displeased with the care she received from [facility], specifically Dr. Larry. She felt like she was not being listened to, said he seemed to be slightly argumentative with her mother and boyfriend, and just overall was not kind. She States he has continued her aspirin, Pepcid, and has decreased her Metoprolol to 50mg in the morning and 50mg at night. Apologized to patient for her experience with [facility] and advised her to talk to [facility] Nena if she felt she was dissatisfied with her care. Called [facility] and records will be faxed to [...] Status:Closed by LILLIAN AVILEZ on 09/17/24 Normal [facility] Telephone (OGFVWE) LÓPEZ BRAVO ([id number]) 4 F Date Time Provider Department 09/16/24 NURSE LEATHER FITTER FRVW [facility]IAM[facility] OGFVWE During your visit today, we recorded the [...] Encounter Status:Closed by JEFFERY GARZA on 09/16/24 Normal [facility] POC RN CRITICAL CARE ULTRASOUNDon 09-16-19 Indication Viability; confirm cardiac activity [...] Read By: Lidia Raza CNM MATERNAL MEDICINE [facility] 12 Lead EKG performed by [facility] on 09-15-2024 12 Lead EKG performed by [facility] [address] [place] [address] 12 Lead EKG performed by [facility] 09/15/24 1538 MR#: [id number] Acct: [id number] Name: LÓPEZ BRAVO Rep #: [id number] : 2000 24 From: Barry Larry MD Attending Dr: Dr. Barry Larry MD Status: DEP A MB Ordering Dr: Barry Larry MD Date: 09/15/24 Location: [facility] Sex: F C Admitted: BMS/12 Lead EKG performed by [facility] ECG Report Interpretation ---Sinus Rhythm WITHIN NORMAL LIMITSElectronically signed on 09/16/2024 at 11:37 by Barry Larry Software Version [id number] 09/16/24 1140 Date Barry Larry MD CC: [facility] DISABILITIES SERVICES OFFICER-Francis Coyne Date Dictated: 09/15/241537 Date Transcribed: 09/15/241537 Avionics System Engineer: [place] Signed Normal [facility] BACTERIAL VAGINOSIS NAATon 0 09-15-2024 Lactobacillus crispatus+gasseri+jense rosa m + Gardnerella vaginalis + Atopobium vaginae rRNA DILIP+probe Ql (Vag fld) Not detected Normal Not detected [facility] Comment on above: Order Comment: Speci men Type: SWABOrdering Facility: [facility] Address: [address] [place] [address] Performed By: #### B VAMP, CVTV ####[facility] LABCLIA [id number] [place] [address] [place] Bacteria Ur Culton [...] , Intermediate >32 , Resistant >64 Abnormal [facility] Comment on above: Performed By: #### 6 30-4 ####[facility] LABIA [id number] [place] [address] [place] [facility] C. trachomatis+N. gonorrhoea e DNA DILIP+probe Ql (Unsp spec)on 09-15-2024 C. trachomatis rRNA DILIP+probe Ql (Unsp spec) Not detected Normal Not detected [facility] Comment on above: Order Comment: Speci men Type: SWABOrdering Facility: [facility] Address: [address] [place] [address] Performed By: #### 3 6902-5 ####[facility] LABIA [id number] [place] [address] [place] N. gonorrhoeae rRNA DILIP+probe Ql (Unsp spec) Not detected Normal Not detected [facility] Comment on above: Order Comment: Speci men Type: SWABOrdering Facility: [facility] Address: [address] [place] [address] Performed By: #### 3 6902-5 ####[facility] LABCLIA [id number] [place] [address] [place] OSCAR/TRICHOMONAS NAATon 0 09-15-2024 C. glabrata RNA DILIP+probe Ql (Vag fld) Detected Abnormal Not detected [facility] Comment on above: Order Comment: Speci men Type: SWABOrdering Facility: [facility] Address: [address] [place] [address] Performed By: #### B VAMP, CVTV ####[facility] LABCLIA [id number] [place] [address] [place] Oscar sp DNA DILIP+probe Ql (Vag fld) Detected Abnormal Not detected [facility] Comment on above: Order Comment: Speci men Type: SWABOrdering Facility: [facility] Address: [address] [place] [address] Result Comment: The Oscar species group target includes C. albicans, C. tropicalis, C. parapsilosis, and C. dubliniensis. Performed By: #### B VAMP, CVTV ####[facility] LABCLIA [id number] [place] [address] [place] T. vaginalis DNA DILIP+probe Ql (Unsp spec) Not detected Normal Not detected [facility] Comment on above: Order Comment: Speci men Type: SWABOrdering Facility: [facility] Address: [address] [place] [address] Performed By: #### B VAMP, CVTV ####[facility] LABCLIA [id number] [place] [address] [place] Cardiology Visit Reporton Cardiology Visit Report [facility] [address] [address] [place] [address] OFFICE VISIT Date of Service: 09/15/24 MR#: [id number] Acct: [id number] Name: LÓEPZ BRAVO Rep #: [id number] : 2000 Provider: Dr. Barry Larry MD Age/Sex: 24/F Location: [facility] Status: Signed HPI HPI History of Present Illness Details: 24-year-old lady accompanied by her mother and her boyfriend who presents for a cardiac evaluation. Her major concern is that she has been tachycardic for many years dating back about 7 years in [place]. 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 She has been on metoprolol since she was 18 and her dosages have been increased. In March 2024 she did see a piercing specialist in [place] and at that time an EKG demonstrated [...] Source Monitor Intake Visit Reasons: TACHYCARDIA (DORETHA) Tie Up Worker Required: No Accompanied by: Mother Is patient [...] Rx tablet,extended release 24 hr (Toprol XL) [facility] Medical History Asthma GERD (gastroesophageal reflux disease) Methylenetetrahydrofola te reductase deficiency Dyspnea Inappropriate sinus tachycardia Surgical [...] Palpation: normal (more content not included)... Normal [facility] PAP TESTon 09-15-2024 ADEQUACY Satisfactory for interpretation. Normal [facility] Comment on above: Order Comment: Speci men Type: FLUID SPECIMENOrdering Facility: [facility] Address: [address] [place] [address] Performed By: #### L [id number] ####[facility] LABCLIA [id number] [place] [address] [place] CASE REPORT Normal [facility] Comment on above: Order Comment: Speci men Type: FLUID SPECIMENOrdering Facility: [facility] Address: [address] [place] [address] Result Comment: Gyne cologic Cytology Report Case: [id number] Authorizing Provider: Lidia Raza APRN.CNM Collected: 09/15/2024 02:51 PM Ordering Location: OB/Gynecology Received: 09/16/2024 07:49 AM First Screen: Jared, Piedad, CT, ASCP Specimen: Pap Test, ThinPrep, Cervix Performed By: #### L [id number] ####[facility] LABCLIA [id number] [place] [address] [place] CLINICAL HISTORY, CYTOLOGY, PHILATELIC CONSULTANT (Indicate Weeks) Normal [facility] Comment on above: Order Comment: Speci men Type: FLUID SPECIMENOrdering Facility: [facility] Address: [address] [place] [address] Performed By: #### L [id number] ####[facility] LABCLIA [id number] [place] [address] [place] FINAL PERFORMING LAB Normal [facility] Comment on above: Order Comment: Speci men Type: FLUID SPECIMENOrdering Facility: [facility] Address: [address] [place] [address] Result Comment: Tech nical component, twister doffer screening performed at [facility], [address] [place] [address] [place] [address] CLIA# [id number] Diagnostic interpretation performed at [facility], [address] [place] [address] CLIA# [id number] Tie Up Worker: Karsten Delgado M.D. Performed By: #### L [id number] ####[facility] LABCLIA [id number] [place] [address] [place] INTERPRETATION, CYTOLOGY, PHILATELIC CONSULTANT Normal [facility] Comment on above: Order Comment: Speci men Type: FLUID SPECIMENOrdering Facility: [facility] Address: [address] [place] [address] Result Comment: Nega tive for intraepithelial lesion or malignancy. at 1110 EST Performed By: #### L [id number] ####[facility] LABCLIA [id number] [place] [address] [place] LMP 06/22/2024 Normal [facility] Comment on above: Order Comment: Speci men Type: FLUID SPECIMENOrdering Facility: [facility] Address: [address] [place] [address] Performed By: #### L [id number] ####[facility] LABCLIA [id number] [place] [address] [place] PAP DISCLAIMER COMMENT The Pap Smear is a screening test for cervical cancer. False negative results occur with all screening tests, emphasizing the need for rescreening at recommended intervals, and clinical correlation. Normal [facility] Comment on above: Order Comment: Speci men Type: FLUID SPECIMENOrdering Facility: [facility] Address: [address] [place], [place] [address], [place] [address] Performed By: #### L [id number] ####[facility] LABCLIA [id number] [place] [id number] [place] PAP FORGING MACHINE HAND COMMENT This specimen has be en analyzed by the ThinPrep Imaging System, an automated imaging and review system, which assists the laboratory in evaluating cells on ThinPrep Pap tests. Following automated imaging, selected issa from every slide are reviewed by a twister doffer. Normal [facility] Comment on above: Order Comment: Speci men Type: FLUID SPECIMENOrdering Facility: [facility] Address: [address] [place] [address] Performed By: #### L [id number] ####[facility] LABCLIA [id number] [place] [id number] [place] POC RN CRITICAL CARE ULTRASOUNDon 09-15-19 Radiology Study observation (narrative) [facility] UA DIP, URINE (POC)on 2024 BILIRUBIN UA (POCT) Negative Negative Raj [facility] CLARITY UA (POCT) Clear [facility] COLOR UA (POCT) Isela [facility] GLUCOSE UA (POCT) Negative Negative mg/dL [facility] Hemoglobin Ql (U) Small Abnormal Negative [facility] Interpretation and review of laboratory results Abnormal [facility] KETONE UA (POCT) Negative Negative mg/dL [facility] LEUKOCYTES UA (POCT) Small Abnormal Negative [facility] NITRITE UA (POCT) Positive Abnormal Negative [facility] PH UA (POCT) 6.5 4.5 - 8.0 [facility] Protein Ql (U) 100 mg/dL Abnormal Negative [facility] SPECIFIC GRAVITY UA (POCT) >=1.030 1.005 - 1.030 [facility] UROBILINOGEN UA (POCT) 0.2 Denisa l E.U./dL [facility] Location:[facility], [address] , [place], [address] [facility] POINT OF CARE [facility] CNPMelida 09-13-2024 CNPN Telephone (OBGYWM) LÓPEZ BRAVO ([id number]) 4 F Date Time Provider Department 09/13/24 [...] Status:Closed by ISIS MORSE on 10/06/24 Normal [facility] Urine Cultureon 09-03-2024 URC Proteus mirabilis Mansura Count 25,000-50,000 Staphylococcus haemolyticus Staphylococcus haemolyticus Proteus [...] S Vancomycin Islt CHRISTINE <=0.5 S Normal [facility] Comment on above: Performed By: #### L 501.080 #### [facility] [address] [place], [place], [address] Vitamin D 1,25-Dihydroxyon 0 09-03-2024 VIT D 1,25 DIHY 59.3 pg/mL Normal 24.8-81.5 [facility] Comment on above: Result Comment: Perf ormed at: [facility] [id number] Oiler Bander: Patrice Olivas MD, Phone: [phone] Performed By: #### L 501.080 #### [facility] [address] [place], [place], [address] CNPMelida 09-01-2024 [facility] LÓPEZ BRAVO ([id number]) 4 F Date Time Provider Department 09/01/24 LIDIA RAZA During your visit today, we recorded the following information about you: Libertad Hernandez 09/01/2024 1:28 PM Signed Patient calling in asking for patient to be seen by OB-PHILATELIC CONSULTANT. Patient is not sure if she should have an or not. She met with her PCP yesterday at [facility] and he suggested that she see us and make an appointment with a piercing specialist as soon as possible since she has [...] taking a Beta Juan. Patient had a piercing specialist in [place] (last seen in [place]) and one in [place] 2 years ago. Prefers not to go back to them because she wants to see a piercing specialist who listens to her. She thinks that [facility] was going to refer her to [place]. Encouraged patient to call [facility]bec[facility] Rochese[facility] and to schedule with a piercing specialist. Inquired if patient is wanting to terminate. She said only if her heart can't take a . Should we add patient to on Friday to meet with patient to establish care before her NOB? PREETI Cox Rebecca L, MD 09/01/2024 4:58 PM Signed We cannot domestic violence counselor her w/o cardio records. We can try to get her in w/ a [facility] piercing specialist but will be out of town or can go to [facility] at [facility]. Please provide her w/ a number. She [...] 3:31 PM Signed Patient has appointment with [facility] on 09/15/2024 at 3:45 pm. Allergies As of Date: 09/01/2024 (Not on File) Date Reviewed: Never Reviewed Reason for Visit: Patient Question [1477] Prescriptions as of 09/15/2024 - metoprolol succinate ER (TOPROL XL) 100 mg Take 1 tablet by mouth every afternoon. Problem List As Of Date: 09/01/2024 (None) Encounter Status:Closed by LIZETH GLEASON on 09/15/24 Normal [facility] CBC-Complete Blood Cnt No Di ffon 08-31-2024 Erythrocyte distribution width (RBC) [Ratio] 14.3 % Normal 11.6-14.6 [facility] Comment on above: Performed By: #### L 506.0250, L500.4050, M8200.2203, L501.9520, L3300.0960, L506.0400, M100.2200, L400.2010, L100.0500 #### [facility] [address] [place], [address] Hematocrit (Bld) [Volume fraction] 42.0 % Normal 37-47 [facility] Comment on above: Performed By: #### L 506.0250, L500.4050, M8200.2203, L501.9520, L3300.0960, L506.0400, M100.2200, L400.2011, L100.0500 #### [facility] [address] [place], [address] Hemoglobin (Bld) [Mass/Vol] 13.5 g/dL Normal 12.0-15.0 [facility] Comment on above: Performed By: #### L 506.0250, L500.4050, M8200.2203, L501.9520, L3300.0960, L506.0400, M100.2200, L400.2010, L100.0500 #### [facility] [address] [place], [address] MCH (RBC) [Entitic mass] 27.5 pg Normal 27.0-32.0 [facility] Comment on above: Performed By: #### L 506.0250, L500.4050, M8200.2203, L501.9520, L3300.0960, L506.0400, M100.2200, L400.2010, L100.0500 #### [facility] [address] [place], [address] MCHC (RBC) [Mass/Vol] 32.1 g/dL Normal 32-36 [facility] Comment on above: Performed By: #### L 506.0250, L500.4050, M8200.2203, L501.9520, L3300.0960, L506.0400, M100.2200, L400.2010, L100.0500 #### [facility] [address] [place], [address] MCV (RBC) [Entitic vol] 85.5 fL Normal 81-99 [facility] Comment on above: Performed By: #### L 506.0250, L500.4050, M8200.2203, L501.9520, L3300.0960, L506.0400, M100.2200, L400.2010, L100.0500 #### [facility] [address] [place], [address] Platelet mean volume (Bld) [Entitic vol] 11.8 fL Normal 6.2-12.0 [facility] Comment on above: Performed By: #### L 506.0250, L500.4050, M8200.2203, L501.9520, L3300.0960, L506.0400, M100.2200, L400.2010, L100.0500 #### [facility] [address] [place], [address] Platelets (Bld) [#/Vol] 290 10*3/uL Normal 150-450 [facility] Comment on above: Performed By: #### L 506.0250, L500.4050, M8200.2203, L501.9520, L3300.0960, L506.0400, M100.2200, L400.2010, L100.0500 #### [facility] [address] [place], [address] RBC (Bld) [#/Vol] 4.91 10*6/uL Normal 4.2-5.4 [facility] Comment on above: Performed By: #### L 506.0250, L500.4050, M8200.2203, L501.9520, L3300.0960, L506.0400, M100.2200, L400.2010, L100.0500 #### [facility] [address] [place], [address] RDW SD 43.9 fl Normal 35.1-43.9 [facility] Comment on above: Performed By: #### L 506.0250, L500.4050, M8200.2203, L501.9520, L3300.0960, L506.0400, M100.2200, L400.2010, L100.0500 #### [facility] [address] [place], [address] WBC (Bld) [#/Vol] 11.2 10*3/uL High 4.4-11.0 [facility] Comment on above: Performed By: #### L 506.0250, L500.4050, M8200.2203, L501.9520, L3300.0960, L506.0400, M100.2200, L400.2010, L100.0500 #### [facility] [address] [place], [address] Comprehensive Metabolic Prof ilon 08-31-2024 Albumin [Mass/Vol] 3.8 g/dL Normal 3.2-5.0 [facility] Comment on above: Order Comment: N Performed By: #### L 506.0250, L500.4050, M8200.2203, L501.9520, L3300.0960, L506.0400, M100.2200, L400.2010, L100.0500 #### [facility] [address] [place], [address] Albumin/Globulin [Mass ratio] 0.9 {ratio} Normal 0.9-2.4 [facility] Comment on above: Order Comment: N Performed By: #### L 506.0250, L500.4050, M8200.2203, L501.9520, L3300.0960, L506.0400, M100.2200, L400.2010, L100.0500 #### [facility] [address] [place], [address] ALK P 66 U/L Normal 45-117 [facility] Comment on above: Order Comment: N Performed By: #### L 506.0250, L500.4050, M8200.2203, L501.9520, L3300.0960, L506.0400, M100.2200, L400.2010, L100.0500 #### [facility] [address] [place], [address] ALT [Catalytic activity/Vol] 57 U/L High 13-56 [facility] Comment on above: Order Comment: N Performed By: #### L 506.0250, L500.4050, M8200.2203, L501.9520, L3300.0960, L506.0400, M100.2200, L400.2010, L100.0500 #### [facility] [address] [place], [address] AST [Catalytic activity/Vol] 23 U/L Normal 15-37 [facility] Comment on above: Order Comment: N Performed By: #### L 506.0250, L500.4050, M8200.2203, L501.9520, L3300.0960, L506.0400, M100.2200, L400.2010, L100.0500 #### [facility] [address] [place], [address] Bilirubin [Mass/Vol] 0.60 mg/dL Normal 0.20-1.00 [facility] Comment on above: Order Comment: N Result Comment: For patients on eltrombopag therapy, use of Dimension Cuthbert TBIL is not recommended. Performed By: #### L 506.0250, L500.4050, M8200.2203, L501.9520, L3300.0960, L506.0400, M100.2200, L400.2010, L100.0500 #### [facility] [address] [place], [address] BUN/CRE 12.4 RATIO Normal 10-20 [facility] Comment on above: Order Comment: N Performed By: #### L 506.0250, L500.4050, M8200.2203, L501.9520, L3300.0960, L506.0400, M100.2200, L4.2010, L100.0500 #### [facility] [address] [place], [address] CA,Total 10.5 mg/dL High 8.5-10.1 [facility] Comment on above: Order Comment: N Performed By: #### L 506.0250, L500.4050, M8200.2203, L501.9520, L3300.0960, L506.0400, M100.2200, L400.2010, L100.0500 #### [facility] [address] [place], [address] Chloride [Moles/Vol] 104 mmol/L Normal 98-107 [facility] Comment on above: Order Comment: N Performed By: #### L 506.0250, L500.4050, M8200.2203, L501.9520, L3300.0960, L506.0400, M100.2200, L400.2010, L100.0500 #### [facility] [address] [place], [address] CO2 [Moles/Vol] 19.0 mmol/L Low 21.0-32.0 [facility] Comment on above: Order Comment: N Performed By: #### L 506.0250, L500.4050, M8200.2203, L501.9520, L3300.0960, L506.0400, M100.2200, L4.2010, L100.0500 #### [facility] [address] [place], [address] Creatinine [Mass/Vol] 0.56 mg/dL Normal 0.55-1.02 [facility] Comment on above: Order Comment: N Result Comment: The validity of the calculated GFR GFRAA in patients over 70 years has not been determined. Clinical correlation is essential. Performed By: #### L 506.0250, L500.4050, M8200.2203, L501.9520, L3300.0960, L506.0400, M100.2200, L4, L100.0500 #### [facility] [address] [place], [address] EST GFR - AA 172 mL/min Normal >60 [facility] Comment on above: Order Comment: N Result Comment: Afri can Dutch GFR Calc Performed By: #### L 506.0250, L500.4050, M8200.2203, L501.9520, L3300.0960, L506.0400, M100.2200, L400.2010, L100.0500 #### [facility] [address] [place], [address] GAP 13 Normal 5-15 [facility] Comment on above: Order Comment: N Performed By: #### L 506.0250, L500.4050, M8200.2203, L501.9520, L3300.0960, L506.0400, M100.2200, L400.2010, L100.0500 #### [facility] [address] [place], [address] GFR/1.73 sq M.predicted among non-blacks MDRD (S/P/Bld) [Vol rate/Area] 142 mL/min/{1.73_m2} Normal >60 [facility] Comment on above: Order Comment: N Result Comment: Non- GFR Calc Performed By: #### L 506.0250, L500.4050, M8200.2203, L501.9520, L3300.0960, L506.0400, M100.2200, L400.2010, L100.0500 #### [facility] [address] [place], [address] Globulin (S) [Mass/Vol] 4.4 g/dL High 2.2-4.2 [facility] Comment on above: Order Comment: N Performed By: #### L 506.0250, L500.4050, M8200.2203, L501.9520, L3300.0960, L506.0400, M100.2200, L400.2010, L100.0500 #### [facility] [address] [place], [address] Glucose [Mass/Vol] 84 mg/dL Normal 74-106 [facility] Comment on above: Order Comment: N Performed By: #### L 506.0250, L500.4050, M8200.2203, L501.9520, L3300.0960, L506.0400, M100.2200, L400.2010, L100.0500 #### [facility] [address] [place], [address] Potassium [Moles/Vol] 3.5 mmol/L Normal 3.5-5.1 [facility] Comment on above: Order Comment: N Performed By: #### L 506.0250, L500.4050, M8200.2203, L501.9520, L3300.0960, L506.0400, M100.2200, L400.2010, L100.0500 #### [facility] [address] [place], [address] Sodium [Moles/Vol] 135 mmol/L Low 136-145 [facility] Comment on above: Order Comment: N Performed By: #### L 506.0250, L500.4050, M8200.2203, L501.9520, L3300.0960, L506.0400, M100.2200, L4.2010, L100.0500 #### [facility] [address] [place], [address] T PROT 8.2 g/dL Normal 6.4-8.2 [facility] Comment on above: Order Comment: N Performed By: #### L 506.0250, L500.4050, M8200.2203, L501.9520, L3300.0960, L506.0400, M100.2200, L400.2010, L100.0500 #### [facility] [address] [place], [address] Urea nitrogen [Mass/Vol] 7 mg/dL Normal 7-18 [facility] Comment on above: Order Comment: N Performed By: #### L 506.0250, L500.4050, M8200.2203, L501.9520, L3300.0960, L506.0400, M100.2200, L400.2010, L100.0500 #### [facility] [address] [place], [address] Folates, (Folic Acid)on 08-12 FOLATES 14.80 ng/mL Normal 3.1-55.4 [facility] Comment on above: Order Comment: N Result Comment: Slig ht Hemolysis, Result may be falsely increased. Performed By: #### L 506.0250, L500.4050, M8200.2203, L501.9520, L3300.0960, L506.0400, M100.2200, L400.2010, L100.0500 #### [facility] [address] [place], [address] M8200.2203on 08-31-2024 M8200.2203 Pending Chlamydia Trachomatis PCR NEGATIVE for Chlamydia trachomatis N. gonorrhoeae PCR Negative for N. gonorrhoeae Normal [facility] Comment on above: Performed By: #### L 501.080 #### [facility] [address] [place], [address] T4 Free Directon 08-31-2024 T4 FREE DIRECT 1.67 ng/dL High 0.76-1.46 [facility] Comment on above: Order Comment: N Performed By: #### L 501.080 #### [facility] [address] [place], [address] Thyroid Stim Hormone (TSH)on 08-31-2024 TSH 0.075 uIU/mL Low 0.358-3.740 [facility] Comment on above: Order Comment: N Performed By: #### L 506.0250, L500.4050, M8200.2203, L501.9520, L3300.0960, L506.0400, M100.2200, L400.2010, L100.0500 #### [facility] [address] [place], [address] Urinalysis, Routine (Dipstic k)on 08-31-2024 KETONE UR 150 mg/dl Abnormal Negative [facility] Comment on above: Order Comment: Urine , Random Result Comment: CRIT ICAL VALUE *H RESULTS CALLED TO WAITING FOR CALLBACK DR LIDIA COYNE 08/31/24 1728 Jeanne Mayorga. REPORT READ BACK BY . WAITING FOR CALLBACK Performed By: #### L 506.0250, L500.4050, M8200.2203, L501.9520, L3300.0960, L506.0400, M100.2200, L400.2010, L100.0500 #### [facility] [address] [place], [address] BILIRUBIN URINE Negative Normal Negative [facility] Comment on above: Order Comment: Urine , Random Performed By: #### L 506.0250, L500.4050, M8200.2203, L501.9520, L3300.0960, L506.0400, M100.2200, L400.2010, L100.0500 #### [facility] [address] [place], [address] Clarity (U) Sl. Cloudy Normal Clear [facility] Comment on above: Order Comment: Urine , Random Performed By: #### L 506.0250, L500.4050, M8200.2203, L501.9520, L3300.0960, L506.0400, M100.2200, L400.2010, L100.0500 #### [facility] [address] [place], [address] Color (U) Yellow Normal Yellow [facility] Comment on above: Order Comment: Urine , Random Performed By: #### L 506.0250, L500.4050, M8200.2203, L501.9520, L3300.0960, L506.0400, M100.2200, L400.2010, L100.0500 #### [facility] [address] [place], [address] GLUCOSE, UR Normal Normal Normal [facility] Comment on above: Order Comment: Urine , Random Performed By: #### L 506.0250, L500.4050, M8200.2203, L501.9520, L3300.0960, L506.0400, M100.2200, L400.2010, L100.0500 #### [facility] [address] [place], [address] LEUK ESTERASE 500 /ul Abnormal Negative [facility] Comment on above: Order Comment: Urine , Random Performed By: #### L 506.0250, L500.4050, M8200.2203, L501.9520, L3300.0960, L506.0400, M100.2200, L400.2010, L100.0500 #### [facility] [address] [place], [address] Nitrite Ql (U) Positive Abnormal Negative [facility] Comment on above: Order Comment: Urine , Random Performed By: #### L 506.0250, L500.4050, M8200.2203, L501.9520, L3300.0960, L506.0400, M100.2200, L400.2010, L100.0500 #### [facility] [address] [place], [address] OCCULT BLOOD-UR 25 /ul Abnormal Negative [facility] Comment on above: Order Comment: Urine , Random Performed By: #### L 506.0250, L500.4050, M8200.2203, L501.9520, L3300.0960, L506.0400, M100.2200, L400.2010, L100.0500 #### [facility] [address] [place], [address] pH UR 6.0 Normal 5.0 - 8.0 [facility] Comment on above: Order Comment: Urine , Random Performed By: #### L 506.0250, L500.4050, M8200.2203, L501.9520, L3300.0960, L506.0400, M100.2200, L400.2010, L100.0500 #### [facility] [address] [place], [place], [address] PROT DIPSTX 30 mg/dl Abnormal Negative [facility] Comment on above: Order Comment: Urine , Random Performed By: #### L 506.0250, L500.4050, M8200.2203, L501.9520, L3300.0960, L506.0400, M100.2200, L400.2010, L100.0500 #### [facility] [address] [place], [place], [address] SP.GR. DIPSTX 1.025 Normal 1.002-1.030 [facility] Comment on above: Order Comment: Urine , Random Performed By: #### L 506.0250, L500.4050, M8200.2203, L501.9520, L3300.0960, L506.0400, M100.2200, L400.2010, L100.0500 #### [facility] [address] [place], [place], [address] UROBILI 4 mg/dl Abnormal Normal [facility] Comment on above: Order Comment: Urine , Random Performed By: #### L 506.0250, L500.4050, M8200.2203, L501.9520, L3300.0960, L506.0400, M100.2200, L400.2010, L100.0500 #### [facility] [address] [place], [place], [address] CNPMelida 08-19-2024 EVANSN Telephone (OBGY) LÓPEZ BRAVO ([id number]) 4 F Date Time Provider Department 08/19/24 DELILAH PAYNE OBCF During your visit today, we recorded the following information about you: Delilah Payne LPN 08/19/2024 10:14 AM Signed Central Scheduling, Jaky, left VM on PEAC line with pt's information requesting a call back in regards to pt wanting elective IAB. Called pt's number and ULVM due to it being full. Unable to send MCM with resources since [employer] is not active. Thank you, Delilah Payne LPN Allergies As of Date: 08/19/2024 (Not on File) Date Reviewed: Never Reviewed Reason for Visit: Complex Family Planning [Other] Problem List As Of Date: 08/19/2024 (None) Encounter Status:Closed by DELILAH PAYNE on 08/19/24 Normal [facility] Vital Signs Date Time Vital Sign Value Performing Clinician Facility 03-28-2025 09:11-0400 Body temperature 97.9 [degF] Lidia Coyne DISABILITIES SERVICES OFFICER-C Work Phone: [facility] 03-28-2025 09:11-0400 Diastolic blood pressure 62 mm[Hg] Lidia Coyne DISABILITIES SERVICES OFFICER-C Work Phone: [facility] 03-28-2025 09:11-0400 Heart rate 96 /min Lidia Coyne DISABILITIES SERVICES OFFICER-C Work Phone: [facility] 03-28-2025 09:11-0400 Respiratory rate 16 /min Lidia Coyne DISABILITIES SERVICES OFFICER-C Work Phone: [phone] [place] [address] 03-28-2025 09:11-0400 SaO2% (BldA) [Mass fraction] 96 % Lidia Coyne DISABILITIES SERVICES OFFICER-C Work Phone: [facility] 03-28-2025 09:11-0400 Systolic blood pressure 99 mm[Hg] Lidia Coyne DISABILITIES SERVICES OFFICER-C Work Phone: [phone] [place] [address] 03-26-2025 09:33-0400 Body height 157.48 cm Lidia Coyne DISABILITIES SERVICES OFFICER-C Work Phone: [facility] 03-26-2025 09:33-0400 Body mass index (BMI) [Ratio] 33.5 kg/m2 Lidia AGUILARC Work Phone: [facility] 03-26-2025 09:33-0400 Body weight 83 kg Lidia Coyne NP-C Work Phone: [facility] 03-24-2025 16:03-0400 Body mass index (BMI) [Ratio] 33.71 kg/m2 Sharyn Rodriguez MD Work Phone: [facility] 03-24-2025 16:03-0400 Body weight 83.1 kg Sharyn Rodriguez MD Work Phone: [facility] 03-24-2025 16:03-0400 Diastolic blood pressure 72 mm[Hg] Sharyn Rodriguez MD Work Phone: [facility] 03-24-2025 16:03-0400 Systolic blood pressure 110 mm[Hg] Sharyn Rodriguez MD Work Phone: [facility] 03-11-2025 14:41-0400 Body mass index (BMI) [Ratio] 33.68 kg/m2 Lidia Raza APRN.CNM Work Phone: [facility] 03-11-2025 14:41-0400 Body weight 83.01 kg Lidia Raza APRN.CNM Work Phone: [facility] 03-11-2025 14:41-0400 Diastolic blood pressure 70 mm[Hg] Lidia Raza APRN.CNM Work Phone: [facility] 03-11-2025 14:41-0400 Systolic blood pressure 116 mm[Hg] Lidia Raza APRN.CNM Work Phone: [facility] 03-03-2025 13:48-0400 Body mass index (BMI) [Ratio] 33.12 kg/m2 Albert Swift MD Work Phone: [facility] 03-03-2025 13:48-0400 Body weight 81.65 kg Albert Swift MD Work Phone: [facility] 03-03-2025 13:48-0400 Diastolic blood pressure 70 mm[Hg] Albert Swift MD Work Phone: [facility] 03-03-2025 13:48-0400 Systolic blood pressure 116 mm[Hg] Albert Swift MD Work Phone: [facility] 03-02-2025 14:19-0400 Body temperature 98.2 [degF] Capri Brown MD Work Phone: [facility] 03-02-2025 14:19-0400 Diastolic blood pressure 73 mm[Hg] Capri Brown MD Work Phone: [facility] 03-02-2025 14:19-0400 Heart rate 108 /min Capri Brown MD Work Phone: [facility] 03-02-2025 14:19-0400 Respiratory rate 16 /min Capri Brown MD Work Phone: [facility] 03-02-2025 14:19-0400 SaO2% (BldA) [Mass fraction] 98 % Capri Brown MD Work Phone: [facility] 03-02-2025 14:19-0400 Systolic blood pressure 107 mm[Hg] Capri Brown MD Work Phone: [facility] 03-02-2025 10:33-0400 Body height 157 cm Capri Brown MD Work Phone: [facility] 03-02-2025 10:33-0400 Body mass index (BMI) [Ratio] 33.53 kg/m2 Capri Brown MD Work Phone: [facility] 03-02-2025 10:33-0400 Body weight 82.65 kg Capri Brown MD Work Phone: [facility] 02-25-2025 14:47-0400 Body mass index (BMI) [Ratio] 32.94 kg/m2 Lizeth Tate MD Work Phone: [facility] 02-25-2025 14:47-0400 Body weight 81.19 kg Lizeth Tate MD Work Phone: [facility] 02-25-2025 14:47-0400 Diastolic blood pressure 68 mm[Hg] Lizeth Tate MD Work Phone: [facility] 02-25-2025 14:47-0400 Systolic blood pressure 118 mm[Hg] Lizeth Tate MD Work Phone: [facility] 02-21-2025 09:35-0400 Body height [address] [facility] 02-21-2025 09:35-0400 Body mass index (BMI) [Ratio] 32.39 kg/m2 Kalee More RD [facility] 02-21-2025 09:35-0400 Body weight 79.[address] [facility] Comment on above: at last medical visit 02-02-2025 15:10-0400 Body mass index (BMI) [Ratio] 32.39 kg/m2 Lizeth Tate MD Work Phone: [facility] 02-02-2025 15:10-0400 Body weight 79.83 kg Lizeth Tate MD Work Phone: [facility] 02-02-2025 15:10-0400 Diastolic blood pressure 80 mm[Hg] Lizeth Tate MD Work Phone: [facility] 02-02-2025 15:10-0400 Systolic blood pressure 122 mm[Hg] Lizeth Tate MD Work Phone: [facility] 01-26-2025 14:25-0400 Body height 157.48 cm Lidia Coyne NP-C Work Phone: [facility] 01-26-2025 14:25-0400 Body mass index (BMI) [Ratio] 32.7 kg/m2 Lidia Coyne NP-C Work Phone: [facility] 01-26-2025 14:25-0400 Body weight 81.19 kg Lidia Coyne NP-C Work Phone: [facility] 01-26-2025 14:25-0400 Diastolic blood pressure 77 mm[Hg] Lidia Coyne DISABILITIES SERVICES OFFICER-C Work Phone: [facility] 01-26-2025 14:25-0400 Heart rate 94 /min Lidia Coyne DISABILITIES SERVICES OFFICER-C Work Phone: [facility] 01-26-2025 14:25-0400 Respiratory rate 18 /min Lidia Coyne DISABILITIES SERVICES OFFICER-C Work Phone: [facility] 01-26-2025 14:25-0400 Systolic blood pressure 107 mm[Hg] Lidia Coyne DISABILITIES SERVICES OFFICER-C Work Phone: [facility] 01-20-2025 15:33-0400 Body mass index (BMI) [Ratio] 32.39 kg/m2 Tia Haury SWITCHBOARD MECHANIC.APPLIANCE TECHNICIAN Work Phone: [facility] 01-20-2025 15:33-0400 Body weight 79.83 kg Tia Haury SWITCHBOARD MECHANIC.APPLIANCE TECHNICIAN Work Phone: [facility] 01-20-2025 15:33-0400 Diastolic blood pressure 70 mm[Hg] Tia Haury SWITCHBOARD MECHANIC.APPLIANCE TECHNICIAN Work Phone: [facility] 01-20-2025 15:33-0400 Systolic blood pressure 120 mm[Hg] Tia Haury SWITCHBOARD MECHANIC.APPLIANCE TECHNICIAN Work Phone: [facility] 01-04-2025 13:54-0400 Body mass index (BMI) [Ratio] 32.39 kg/m2 Lizeth Tate MD Work Phone: [facility] 01-04-2025 13:54-0400 Body weight 79.83 kg Lizeth Tate MD Work Phone: [facility] 01-04-2025 13:54-0400 Diastolic blood pressure 74 mm[Hg] Lizeth Tate MD Work Phone: [facility] 01-04-2025 13:54-0400 Systolic blood pressure 110 mm[Hg] Lizeth Tate MD Work Phone: [facility] 12-20-2024 14:46-0400 Body mass index (BMI) [Ratio] 31.76 kg/m2 Carolyn Espinozats SWITCHBOARD MECHANIC.CNM Work Phone: [facility] 12-20-2024 14:46-0400 Body weight 78.29 kg Carolyn Espinozats SWITCHBOARD MECHANIC.CNM Work Phone: [facility] 12-20-2024 14:46-0400 Diastolic blood pressure 78 mm[Hg] Carolyn Espinozats SWITCHBOARD MECHANIC.CNM Work Phone: [facility] 12-20-2024 14:46-0400 Systolic blood pressure 110 mm[Hg] Carolyn Espinozats SWITCHBOARD MECHANIC.CNM Work Phone: [facility] 10-14-2024 13:55-0500 Body mass index (BMI) [Ratio] 30.92 kg/m2 Stefanie Campbell MD Work Phone: [facility] 10-14-2024 13:55-0500 Body weight 76.2 kg Stefanie Campbell MD Work Phone: [facility] 10-14-2024 13:55-0500 Diastolic blood pressure 70 mm[Hg] Stefanie Campbell MD Work Phone: [facility] 10-14-2024 13:55-0500 Systolic blood pressure 110 mm[Hg] Stefanie Campbell MD Work Phone: [facility] 09-15-2024 13:15-0500 Body height 157 cm Lidia Raza SWITCHBOARD MECHANIC.CNM Work Phone: [facility] 09-15-2024 13:15-0500 Body mass index (BMI) [Ratio] 29.81 kg/m2 Lidia Raza SWITCHBOARD MECHANIC.CNM Work Phone: [facility] 09-15-2024 13:15-0500 Body weight 73.48 kg Lidia Raza SWITCHBOARD MECHANIC.CNM Work Phone: [facility] 09-15-2024 13:15-0500 Diastolic blood pressure 74 mm[Hg] Lidia Raza SWITCHBOARD MECHANIC.CNM Work Phone: [facility] 09-15-2024 13:15-0500 Systolic blood pressure 102 mm[Hg] Lidia Raza APRN.CNM Work Phone: [facility] Encounters Encounter Date Encounter Type Care Provider Facility Start: 04-18-2025 End: 04-18-2025 Telephone encounter Lidia Raza APRN.CNM Work Phone: OB/Gynecology Comment on above: Left Breast Start: 04-14-2025 End: 04-15-2025 Refill Tia Reynaldo AUGUSTINEAPPLIANCE TECHNICIAN Work Phone: OB/Gynecology Comment on above: Refill Request Start: 03-28-2025 End: 03-28-2025 ambulatory Lizeth Tate MD Work Phone: OB/Gynecology Comment on above: Ob Delivery Note Start: 03-26-2025 End: 03-28-2025 Evaluation and management of inpatient Dr. Lizeth Tate MD -[facility] Work Phone: Start: 03-25-2025 End: 03-25-2025 Telephone encounter Sharyn [...] high risk in third trimester (HCC) Start: 03-24-2025 End: 03-24-2025 ambulatory SHARYN RODRIGUEZ Facility:[facility] Start: 03-17-2025 End: 03-17-2025 ambulatory SHARYN RODRIGUEZ Facility:[facility] Start: 03-15-2025 End: 03-15-2025 ambulatory [facility] Start: 03-15-2025 End: 03-15-2025 Patient encounter procedure [facility] Comment on above: Population Health Na vigation Outreach ( to PCP/OB//) Start: 03-11-2025 End: 03-11-2025 Patient encounter procedure Lidia Raza DAVIDEM Work Phone: OB/Gynecology Comment on above: Supervision of high risk in third trimester (HCC) (Primary Dx); 37 weeks gestation of (HCC); Diet controlled gestational diabetes mellitus (GDM) in third trimester (HCC); Hypothyroidism, unspecified type Start: 03-11-2025 End: 03-11-2025 ambulatory LIDIA RAZA Facility:[facility] Start: 03-03-2025 End: 03-03-2025 ambulatory TIA JACOBS Facility:[facility] Start: 03-03-2025 End: 03-03-2025 Patient encounter procedure Albert Swift MD Work Phone: OB/Gynecology Comment on above: Supervision of high risk in third trimester (HCC) (Primary Dx); Diet controlled gestational diabetes mellitus (GDM) in third trimester (HCC); Hypothyroidism, unspecified type Diet controlled gest ational diabetes mellitus (GDM) in third trimester (HCC) (Primary Dx); with uncertain dates, antepartum ([facility]) Start: 03-03-2025 End: 03-03-2025 [facility] Start: 03-02-2025 End: 03-02-2025 Patient encounter procedure Capri Brown MD Work Phone: Allergy Comment on above: Adverse effect of dr cottrell, subsequent encounter (Primary Dx); Allergy to penicillin Start: 03-02-2025 End: 03-02-2025 ambulatory CAPRI BROWN Facility:[facility] Start: 02-28-2025 End: 02-28-2025 Telephone encounter Lizeth Patel RN Maternal Medic ine Comment on above: Optometry Teacher - O ther ([facility]) Start: 02-25-2025 End: 02-25-2025 Office outpatient visit 15 minutes Lizeth Tate MD Work Phone: OB/Gynecology Comment on above: Supervision of high risk in third trimester (HCC) (Primary Dx); Diet controlled gestational diabetes mellitus (GDM) in third trimester (HCC); Hypothyroidism, unspecified type; Penicillin allergy; 35 weeks gestation of (HCC) Start: 02-25-2025 End: 02-25-2025 ambulatory LIZETH TATE Facility:[facility] Start: 02-21-2025 End: 02-21-2025 ambulatory KALEE MORE Facility:[facility] Start: 02-21-2025 End: 02-21-2025 Nutrition therapy Kalee More RD Nutrition Therapy Comment on above: Dietary counseling ( Primary Dx); Gestational diabetes mellitus (GDM) in third trimester, gestational diabetes method of control unspecified (HCC) Start: 02-21-2025 End: 02-21-2025 Telemedicine consultation with patient Kalee Mortonomid LYNN Nutrition Therapy Start: 02-03-2025 End: 04-05-2025 Follow-up encounter Carolyn Richmond APRN.CNM Work Phone: OB/Gynecology Start: 02-02-2025 End: 02-02-2025 Office outpatient visit 15 minutes Lizeth Tate MD Work Phone: OB/Gynecology Comment on above: Supervision of high risk in third trimester (HCC) (Primary Dx); Diet controlled gestational diabetes mellitus (GDM) in third trimester (HCC) Start: 02-02-2025 End: 02-02-2025 Patient encounter procedure Whi Tech 1 Sizing Sprayer [facility] Maternal Medicine Comment on above: Diet controlled gest ational diabetes mellitus (GDM) in third trimester (HCC) (Primary Dx); Gestational diabetes mellitus (GDM) in third trimester, gestational diabetes method of control unspecified (HCC) Start: 02-02-2025 End: 02-02-2025 ambulatory CAROLYN RICHMOND Facility:[facility] Start: 01-26-2025 End: 01-26-2025 Patient encounter procedure Tr [facility] Work Phone: Start: 01-26-2025 End: 01-26-2025 ambulatory Lidia Coyen DISABILITIES SERVICES OFFICERChucky Work Phone: [facility] Work Phone: Start: 01-24-2025 End: 03-26-2025 Follow-up encounter Tia Jacobs APRN.APPLIANCE TECHNICIAN Work Phone: OB/Gynecology Start: 01-20-2025 End: 01-20-2025 Patient encounter procedure Tia Macdevin AUGUSTINEAPPLIANCE TECHNICIAN Work Phone: OB/Gynecology Comment on above: Supervision of high risk in third trimester (HCC) (Primary Dx); 30 weeks gestation of (HCC); Hypothyroidism, unspecified type; Tachycardia; Penicillin allergy; UTI (urinary tract infection) in , antepartum ([facility]); Diet controlled gestational diabetes mellitus (GDM) in third trimester ([facility]); Abnormal ultrasound Start: 01-20-2025 End: 01-20-2025 ambulatory TIAJAZ MACDEVIN Facility:[facility] Start: 01-19-2025 End: 01-19-2025 Telemedicine consultation with patient Emma Padgett MD Work Phone: Endocrinology Start: 01-19-2025 End: 01-19-2025 ambulatory Emma Padgett MD Work Phone: Endocrinology Comment on above: Hypothyroidism, unsp ecified type Start: 01-18-2025 End: 01-18-2025 Telephone encounter Carolyn Richmond APRN.CNM Work Phone: OB/Gynecology Comment on above: Results (3 hour gluc ose) Start: 01-13-2025 End: 01-13-2025 ambulatory ALBERT Panchito [facility] Start: 01-05-2025 End: 03-07-2025 Follow-up encounter Carolyn Richmond APRN.CNM Work Phone: OB/Gynecology Start: 01-04-2025 End: 01-04-2025 Office outpatient visit 15 minutes Lizeth Tate MD Work Phone: OB/Gynecology Comment on above: Supervision of high risk in third trimester (HCC) (Primary Dx); 28 weeks gestation of (HCC) Start: 01-04-2025 End: 01-04-2025 ambulatory LIZETH TATE Facility:[facility] Start: 12-23-2024 End: 12-23-2024 ambulatory CAPRI BROWN Facility:[facility] Start: 12-23-2024 End: 12-23-2024 Office consultation new/estab patient 40 min Capri Brown MD Work Phone: Allergy Comment on above: Adverse effect of dr cottrell, initial encounter (Primary Dx); Allergy to penicillin Start: 12-21-2024 End: 02-20-2025 Follow-up encounter Albert Swift MD Work Phone: OB/Gynecology Start: 12-20-2024 End: 12-20-2024 Patient encounter procedure Carolynadriel Richmond CNM Work Phone: OB/Gynecology Comment on above: 25 weeks gestation o f ([facility]) (Primary Dx); Screening for diabetes mellitus; Supervision of high risk in second trimester ([facility]); Transportation insecurity; Tachycardia; Penicillin allergy Encounter for anatomic survey ([facility]) (Primary Dx); Late care affecting , antepartum ([facility]); 25 weeks gestation of ([facility]) Start: 12-20-2024 End: 12-20-2024 ambulatory ALBERT SWIFT Facility:[facility] Start: 12-08-2024 End: 12-13-2024 Telephone encounter Lidia Raza APRN.CNM Work Phone: OB/Gynecology Start: 11-30-2024 End: 11-30-2024 Telephone encounter Stefanie Campbell MD Work Phone: OB/Gynecology Comment on above: OB vomiting Start: 11-26-2024 End: 11-26-2024 Chart abstracting Lidia Raza APRN.CNM Work Phone: OB/Gynecology Comment on above: Anatomy US Results Start: 11-25-2024 End: 11-25-2024 ambulatory LIDIA Saenz [facility] Start: 11-15-2024 End: 11-16-2024 Telephone encounter Lidia Raza APRN.CNM Work Phone: OB/Gynecology Comment on above: Orders Start: 10-29-2024 End: 10-29-2024 ambulatory BARRY LARRY [facility] Start: 10-27-2024 ambulatory Barry Larry Facility:[facility] Start: 10-19-2024 End: 11-17-2024 Follow-up encounter Albert Swift MD Work Phone: OB/Gynecology Start: 10-18-2024 End: 12-18-2024 Follow-up encounter Lina Sy APRN.CNP Work Phone: OB/Gynecology Start: 10-18-2024 End: 10-19-2024 [...] Start: 10-14-2024 End: 10-14-2024 ambulatory LIDIA RAZA Facility:[facility] Start: 10-06-2024 End: 10-06-2024 Telephone encounter Lidia Raza APRN.CNM Work Phone: OB/Gynecology Comment on above: Care Start: 10-05-2024 ambulatory ADRIENNE MEYERS [facility] Start: 09-27-2024 End: 09-30-2024 Telephone encounter Lidia Raza APRN.CNM Work Phone: OB/Gynecology Comment on above: F/U ER visit Start: 09-24-2024 End: 09-24-2024 Telephone encounter Lizeth Tate MD Work Phone: OB/Gynecology Comment on above: Patient Update Start: 09-24-2024 End: 09-24-2024 Emergency department patient visit LIDIA BRADLEY [facility] Start: 09-20-2024 End: 09-20-2024 Follow-up encounter Lidia Raza APRN.CNM Work Phone: OB/Gynecology Comment on above: Penicillin allergy ( Primary Dx); Supervision of high risk in second trimester; Type 1 diabetes mellitus affecting , antepartum; 12 weeks gestation of Start: 09-16-2024 End: 09-17-2024 Telephone encounter Nurse Sizing Sprayer Alfonzo Batista Work Phone: Obstetrics/Gynecology Comment on above: [facility] Cardiology appointme nt Start: 09-15-2024 End: 09-15-2024 ambulatory Barry Laron Facility:[facility] Start: 09-15-2024 End: 09-15-2024 Patient encounter procedure [...] OB/Gynecology Comment on above: Received Outside Med ical Records Start: 09-13-2024 End: 10-06-2024 Telephone encounter Lidia Raza APRN.CNM Work Phone: OB/Gynecology Start: 09-01-2024 End: 09-15-2024 Telephone encounter Lidia Raza APRN.CNM Work Phone: OB/Gynecology Comment on above: Patient Question Start: 08-31-2024 End: 08-31-2024 ambulatory Lidia Coyne Francis Facility:[facility] Start: 08-19-2024 End: 08-19-2024 Telephone encounter Delilah Payne LPN Work Phone: [facility] Comment on above: Complex Family Plann ing Procedures Date Procedure Procedure Detail Performing Clinician Start: 03-26-2025 Serologic test for syphilis Lidia Coyne DISABILITIES SERVICES OFFICER-C Work Phone: Start: 03-24-2025 Urnls dip stick/tabl et rgnt non-auto w/o micrscp Sharyn Rodriguez MD Work Phone: Start: 03-11-2025 Iadna streptococcus group b amplified probe tq Lidia Raza SWITCHBOARD MECHANIC.CNM Work Phone: Start: 03-11-2025 Urnls dip stick/tabl et rgnt non-auto w/o micrscp Lidia Raza SWITCHBOARD MECHANIC.CNM Work Phone: Start: 03-03-2025 Urnls dip stick/tabl et rgnt non-auto w/o micrscp Lizeth Tate MD Work Phone: Start: 03-03-2025 Us preg uterus after 1st trimest / gestation Lidia Raza SWITCHBOARD MECHANIC.CNM Work Phone: Start: 02-25-2025 Urnls dip stick/tabl et rgnt non-auto w/o micrscp Lizeth Tate MD Work Phone: Start: 02-02-2025 Us preg uterus after 1st trimest 08/11 gestation Carolyn Espinozarafaela SWITCHBOARD MECHANIC.CNM Work Phone: Start: 12-20-2024 Us preg uterus after 1st trimest 08/11 gestation Albert Swift MD Work Phone: Start: 10-14-2024 Antibody screen KRUNAL TATE Comment on above: Order Comment: Speci men Type: BLOOD SPECIMENOrdering Facility: [facility] Address: [address] [place] [address] Performed By: #### T SPN ####CC MAIN BLOOD BANKCLIA [id number] [place] Start: 09-24-2024 Urinalysis LIDIA TOLEDO Comment on above: Result Comment: URIN ALYSIS Performed By: #### [id number] #### [facility],[address] [place] [address] Start: 09-15-2024 Us uterus l imited 1/> fetuses Lidia Raza APRN.CNM Work Phone: Start: 09-15-2024 Urnls dip stick/tabl et rgnt auto w/o microscopy Lidia Raza APRN.CNM Work Phone: Plan of Treatment Date Care Activity Detail Author Start: 2077 RSV Vaccine (1 - 1-dose 75+ series) RSV Vaccine (1 - 1-dose 75+ series) [facility] Start: 09-15-2027 Screening for malignant neoplasm of cervix Cervical Cancer Screening [facility] Start: 09-15-2025 GC (Gonorrhea) Screening (18-24) GC (Gonorrhea) Screening (18-24) [facility] Start: 09-15-2025 Screening for Chlamydia trachomatis Chlamydia Screening (18-) [facility] Start: 04-11-2025 Influenza vaccination [facility] Start: 03-30-2025 End: 03-30-2025 Patient encounter procedure 03/30/2025 2:30 PM EDT Routine Office Visit OB/Gynecology [address] [place] [address] Carolyn Richmond APRN.ESTELA [address] [place] [address] OB OB/Gynecology Comment on above: OB Start: 03-28-2025 Patient discharge [facility] Start: 03-27-2025 Administration of medication [facility] Start: 03-27-2025 Application of ice collar, cap or bag [facility] Start: 03-27-2025 Catheterization of vein [facility] Start: 03-27-2025 Introduction of urinary catheter [facility] Start: 03-27-2025 Measuring intake and output [facility] Start: 03-27-2025 Notification of physician [facility] Start: 03-27-2025 Procedure discontinued [facility] Start: 03-27-2025 Provision of activity privileges [facility] Start: 03-27-2025 Vital signs measurements [facility] Start: 03-27-2025 End: 03-27-2025 [facility] Start: 03-27-2025 Documentation procedure [facility] Start: 03-27-2025 Consultation [facility] Start: 03-26-2025 Admission procedure [facility] Start: 03-26-2025 Consultation [facility] Start: 03-24-2025 End: 03-24-2025 Patient encounter procedure 03/24/2025 3:50 PM EDT Routine Office Visit OB/Gynecology [address] [place] [address] Sharyn Rodriguez MD [address] [place] [address] OB OB/Gynecology Comment on above: OB Start: 03-17-2025 End: 03-17-2025 Patient encounter procedure 03/17/2025 3:10 PM EDT Routine Office Visit OB/Gynecology [address] [place] [address] Sharyn Rodriguez MD [address] [place] [address] OB OB/Gynecology Comment on above: OB Start: 03-09-2025 End: 03-09-2025 Patient encounter procedure 03/09/2025 3:15 PM EDT Routine Office Visit OB/Gynecology [address] [place] [address] Carolyn Richmond APRN.[facility] [address] [place] [address] OB OB/Gynecology Comment on above: OB Start: 03-03-2025 End: 03-03-2025 Patient encounter procedure Maternal Medicine Comment on above: Growth Growth /OB Start: 03-02-2025 End: 03-02-2025 Patient encounter procedure 03/02/2025 10:30 AM EDT Office Visit Allergy [address] [id number] Capri Brown MD [address] [place] [address] PCN Testing, 36 wks Allergy Comment on above: PCN Testing, 36 wks Start: 02-25-2025 End: 02-25-2025 Patient encounter procedure 02/25/2025 2:50 PM EDT Routine Office Visit OB/Gynecology [address] [place] [address] Lizeth Tate MD [address] [place] [address] OB OB/Gynecology Comment on above: OB Start: 02-21-2025 End: 02-21-2025 Nutrition therapy 02/21/2025 9:30 AM EDT [facility] Nutrition Therapy [address] [place] [id number] Kalee More, SHANE [address] [place] [address] Dx: Gestational diabetes mellitus (GDM) in third trimester, gestational diabetes method of control unspecified (HCC) [O24.419] Nutrition Therapy Comment on above: Dx: Gestational diabetes mellitus (GDM) in third trimester, gestational diabetes method of control unspecified (HCC) [O24.419] Start: 02-16-2025 End: 02-16-2025 Patient encounter procedure 02/16/2025 2:30 PM EDT Routine Office Visit OB/Gynecology [address] [place] [address] Janeen Prather MD [address] [place] [address] OB OB/Gynecology Comment on above: OB Start: 02-02-2025 End: 02-02-2025 Patient encounter procedure Maternal Medicine Comment on above: Growth Growth/OB Start: 01-25-2025 End: 01-25-2025 Nursing evaluation of patient and report 01/25/2025 3:00 PM EDT Nurse Visit Endocrinology [address] [place] [id number] Delroy Saucedo, PREETI [address] [id number] Dx: Gestational diabetes mellitus (GDM) in third trimester, gestational diabetes method of control unspecified ([facility]) [O24.419] Endocrinology Comment on above: Dx: Gestational diabetes mellitus (GDM) in third trimester, gestational diabetes method of control unspecified ([facility]) [O24.419] Start: 01-20-2025 End: 01-20-2025 Patient encounter procedure OB/Gynecology Comment on above: LUIS LUIS- see phone note regarding 3 hr glucose results and need for consults. Start: 01-20-2025 End: 04-21-2025 ANEMIA REFLEX PANEL ANEMIA REFLEX PANEL Lab Routine 25 weeks gestation of ([facility]) Expected: 01/20/2025, Expires: 04/21/2025 [facility] Comment on above: Expected: 01/20/2025, Expires: Start: 01-20-2025 End: 12-20-2025 GESTATIONAL GLUCOSE SCREEN, 1-HOUR, 50 GRAM, NON-FASTING GESTATIONAL GLUCOSE SCREEN, 1-HOUR, 50 GRAM, NON-FASTING Lab Routine Screening for diabetes mellitus Expected: 01/20/2025 (Approximate), Expires: 12/20/2025 [facility] Work Phone: Comment on above: Expected: 01/20/2025 (Approximate), Expi res: 12/20/2025 Start: 01-20-2025 End: 12-20-2025 SYPHILIS TREPONEMAL W/REFLEX SYPHILIS TREPONEMAL W/REFLEX Lab Routine 25 weeks gestation of ([facility]) Expected: 01/20/2025 (Approximate), Expires: 12/20/2025 [facility] Comment on above: Expected: 01/20/2025 (Approximate), Expi res: 12/20/2025 Start: 01-20-2025 End: 04-21-2025 Thyrotropin [Units/volume] in Serum or Plasma THYROID STIMULATING HORMONE Lab Routine Hypothyroidism, unspecified type Expected: 01/20/2025, Expires: 04/21/2025 [facility] Comment on above: Expected: 01/20/2025, Expires: Start: 01-20-2025 End: 04-21-2025 Thyroxine (T4) free [Mass/volume] in Serum or Plasma T4 FREE/FREE THYROXINE Lab Routine Hypothyroidism, unspecified type Expected: 01/20/2025, Expires: 04/21/2025 [facility] Comment on above: Expected: 01/20/2025, Expires: Start: 01-19-2025 End: 01-19-2025 ambulatory 01/19/2025 8:00 AM EDT [facility] Endocrinology [address] [place] [address] Emma Padgett MD [address] [place] [address] Hypothyroidism, unspecified type [E03.9] Endocrinology Comment on above: Hypothyroidism, unspecified type [E03.9] Start: 01-05-2025 End: 04-06-2025 GEST GLUC WILMER, 3-HR, 100 GM, FASTING GEST GLUC WILMER, 3-HR, 100 GM, FASTING Lab Routine Elevated glucose Expected: 01/05/2025, Expires: 04/06/2025 [facility] Work Phone: Comment on above: Expected: 01/05/2025, Expires: Start: 01-04-2025 End: 01-04-2025 Patient encounter procedure 01/04/2025 1:50 PM EDT Routine Office Visit OB/Gynecology [address], [place] [address] Lizeth Tate MD [address] [place] [address] OB OB/Gynecology Comment on above: OB Start: 01-04-2025 End: 01-04-2025 ambulatory 01/04/2025 1:30 PM EDT Results Only [place] [facility] Laboratory [address] [place] [place] [id number] Glucose Test [facility] Laboratory Comment on above: Glucose Test Start: 12-23-2024 End: 12-23-2024 ambulatory 12/23/2024 9:00 AM EDT [facility] Allergy [address] [place], [place] [address] [place] [phone] Capri Brown MD [address] [place] [address] 25 weeks gestation of (HCC) [Z3A.25]; Penicillin allergy [Z88.0 Allergy Comment on above: 25 weeks gestation of (HCC) [Z 3A.25]; Penicillin allergy [Z88.0 Start: 12-20-2024 End: 12-20-2024 Patient encounter procedure OB/Gynecology Comment on above: OB - u/s after growth u/s - had felix delcid at [place] Start: 11-23-2024 End: 11-23-2024 Patient encounter procedure 11/23/2024 10:40 AM EDT Office Visit Endocrinology [address] [place], [place] [id number] Emma Padgett MD [address] [address] Hypothyroidism, unspecified type [E03.9] Endocrinology Comment on above: Hypothyroidism, unspecified type [E03.9] Start: 11-23-2024 End: 11-23-2024 Patient encounter procedure 11/23/2024 8:40 AM EDT Routine Office Visit OB/Gynecology [address] [place], [place] [id number] Janeen Prather MD [address] [place] [address] Anatomy/OB OB/Gynecology Comment on above: Anatomy/OB Start: 11-17-2024 End: 11-16-2025 OBSTETRIC ULTRASOUND WHI OBSTETRIC ULTRASOUND WHI Anc Imaging Routine Encounter for anatomic survey (HCC) Expected: 11/17/2024, Expires: 11/16/2025 [facility] Work Phone: Comment on above: Expected: 11/17/2024, Expires: Start: 11-10-2024 End: 11-10-2024 Patient encounter procedure Maternal Medicine Comment on above: Anatomy Anatomy/OB Start: 10-22-2024 End: 10-22-2024 Patient encounter procedure 10/22/2024 1:00 PM EDT Office Visit Endocrinology [address] [place] [address] Emma Padgett MD [address] [place] [address] Hypothyroidism, unspecified type [E03.9] Endocrinology Comment on above: Hypothyroidism, unspecified type [E03.9] Start: 10-12-2024 End: 10-12-2024 Patient encounter procedure 10/12/2024 1:10 PM EST Routine Office Visit OB/Gynecology [address], [place] [address] Albert Swift MD [address] [place] [address] OB OB/Gynecology Comment on above: OB Start: 09-30-2024 End: 12-30-2024 Chromosome 21 trisomy [Presence] in Blood or Tissue by Cytogen[employer] [id number] PLUS Lab Routine Encounter for screening of mother Expected: 09/30/2024, Expires: 12/30/2024 [facility] Work Phone: Comment on above: Expected: 09/30/2024, Expires: Start: 09-27-2024 End: 09-27-2024 Patient encounter procedure Maternal Medicine Comment on above: Nuchal OB Start: 09-16-2024 End: 12-16-2024 Thyrotropin [Units/volume] in Serum or Plasma THYROID STIMULATING HORMONE Lab Routine Hypothyroidism, unspecified type Expected: 09/16/2024, Expires: 12/16/2024 [facility] Comment on above: Expected: 09/16/2024, Expires: Start: 09-16-2024 End: 12-16-2024 Thyroxine (T4) free [Mass/volume] in Serum or Plasma T4 FREE/FREE THYROXINE Lab Routine Hypothyroidism, unspecified type Expected: 09/16/2024, Expires: 12/16/2024 [facility] Comment on above: Expected: 09/16/2024, Expires: Start: 09-15-2024 End: 12-15-2024 ANEMIA REFLEX PANEL ANEMIA REFLEX PANEL Lab Routine with uncertain dates, antepartum Expected: 09/15/2024, Expires: 12/15/2024 [facility] Work Phone: Comment on above: Expected: 09/15/2024, Expires: Start: 09-15-2024 End: 12-15-2024 Hemoglobin A1c in Blood HEMOGLOBIN A1C Lab Routine with uncertain dates, antepartum Expected: 09/15/2024, Expires: 12/15/2024 [facility] Comment on above: Expected: 09/15/2024, Expires: Start: 09-15-2024 End: 12-15-2024 Hepatitis B virus surface Ag [Presence] in Serum HEPATITIS B SURFACE ANTIGEN Lab Routine with uncertain dates, antepartum Expected: 09/15/2024, Expires: 12/15/2024 [facility] Comment on above: Expected: 09/15/2024, Expires: Start: 09-15-2024 End: 12-15-2024 Hepatitis C virus Ab [Presence] in Serum HEPATITIS C ANTIBODY IA WITH CONFIRMATION Lab Routine with uncertain dates, antepartum Expected: 09/15/2024, Expires: 12/15/2024 [facility] Comment on above: Expected: 09/15/2024, Expires: Start: 09-15-2024 End: 12-15-2024 HIV 1+2 Ab [Presence] in Serum or Plasma by Immunoassay HIV 1/2 COMBO WITH REFLEX TO DIFFERENTIATION Lab Routine with uncertain dates, antepartum Expected: 09/15/2024, Expires: 12/15/2024 [facility] Comment on above: Expected: 09/15/2024, Expires: Start: 09-15-2024 End: 09-15-2025 OBSTETRIC ULTRASOUND WHI OBSTETRIC ULTRASOUND WHI Anc Imaging Routine with uncertain dates, antepartum Expected: 09/15/2024, Expires: 09/15/2025 [facility] Comment on above: Expected: 09/15/2024, Expires: Start: 09-15-2024 End: 12-15-2024 RUBELLA IGG ANTIBODY RUBELLA IGG ANTIBODY Lab Routine with uncertain dates, antepartum Expected: 09/15/2024, Expires: 12/15/2024 [facility] Comment on above: Expected: 09/15/2024, Expires: Start: 09-15-2024 End: 12-15-2024 SYPHILIS TREPONEMAL W/REFLEX SYPHILIS TREPONEMAL W/REFLEX Lab Routine with uncertain dates, antepartum Expected: 09/15/2024, Expires: 12/15/2024 [facility] Comment on above: Expected: 09/15/2024, Expires: Start: 09-15-2024 End: 12-15-2024 THYROID PEROXIDASE ANTIBODY THYROID PEROXIDASE ANTIBODY Lab Routine Hypothyroidism, unspecified type Expected: 09/15/2024, Expires: 12/15/2024 [facility] Comment on above: Expected: 09/15/2024, Expires: Start: 09-15-2024 End: 12-15-2024 TYPE + SCREEN TYPE + SCREEN Blood Bank Routine with uncertain dates, antepartum Expected: 09/15/2024, Expires: 12/15/2024 [facility] Comment on above: Expected: 09/15/2024, Expires: Start: 09-15-2024 End: 09-15-2024 Patient encounter procedure 09/15/2024 1:00 PM EST Initial Office Visit OB/Gynecology [address] [place], [place] [id number] Lidia Raza APRN.CN [address] [place] [address] lmp 06/22/24- Patient has Tachycardia/ Referral in scan doc OB/Gynecology Comment on above: lmp 06/22/24- Patient has Tachycardia/ R eferral in scan doc Start: 04-11-2024 Covid-19 Vaccine ( season) Covid-19 Vaccine ( season) [facility] Start: 04-11-2024 Influenza vaccination [facility] Start: 2023 Screening for malignant neoplasm of cervix Cervical Cancer Screening [facility] Start: 2021 Hepatitis B Vaccine (1 of 3 - 19+ 3-dose series) Hepatitis B Vaccine (1 of 3 - 19+ 3-dose series) [facility] Start: 2021 Urine microalbumin profile DTaP,Tdap,Td Vaccine (1 - Tdap) [facility] Start: 2020 Annual PCP Team Chronic Disease Visit Annual PCP Team Chronic Disease Visit [facility] Start: 2020 Anxiety Screening Anxiety Screening [facility] Start: 2020 Depression Screening Depression Screening [facility] Start: 2020 GC (Gonorrhea) Screening (18-24) GC (Gonorrhea) Screening (18-24) [facility] Start: 2020 Hepatitis C screening Hepatitis C Screening [facility] Start: 2020 HIV screening HIV Screening [facility] Start: 2020 Screening for Chlamydia trachomatis Chlamydia Screening (18-24) [facility] Start: 2018 Meningococcal B Vaccine (1 of 2 - Standard) Meningococcal B Vaccine (1 of 2 - Standard) [facility] Start: 2018 Meningococcal B Vaccine: Consider Based On Risk (1 of 2 - Patient Seeks Protection) Meningococcal B Vaccine: Consider Based On Risk (1 of 2 - Patient Seeks Protection) [facility] Start: 2017 HPV Vaccine (1 - 3-dose series) HPV Vaccine (1 - 3-dose series) [facility] Start: 2016 Peds To Adult Transition Annual Assessment Peds To Adult Transition Annual Assessment [facility] Start: 2014 Peds To Adult Transition Initial Discussion Peds To Adult Transition Initial Discussion [facility] ALLERGEN SKIN TEST-PENICILLIN ALLERGEN SKIN TEST-PENICILLIN Procedures Routine Adverse effect of drug, subsequent encounter Allergy to penicillin Ordered: 03/02/2025 [facility] Work Phone: Comment on above: Ordered: 03/02/2025 Bacteria identified in Urine by Culture BACTERIAL CULTURE, URINE Microbiology Routine with uncertain dates, antepartum 09/15/2024 2:10 PM [facility] Bacteria identified in Urine by Culture BACTERIAL CULTURE, URINE Microbiology Routine UTI (urinary tract infection) in , antepartum 10/14/2024 2:22 PM [facility] Work Phone: Bacteria identified in Urine by Culture BACTERIAL CULTURE, URINE Microbiology Routine UTI (urinary tract infection) in , antepartum (HCC) Ordered: 01/20/2025 [facility] Work Phone: Comment on above: Ordered: 01/20/2025 BACTERIAL VAGINOSIS NAAT BACTERI AL VAGINOSIS NAAT Lab Routine with uncertain dates, antepartum Vaginal discharge 09/15/2024 2:51 PM [facility] OSCAR/TRICHOMONAS NAAT OSCAR /TRICHOMONAS NAAT Lab Routine with uncertain dates, antepartum Vaginal discharge 09/15/2024 2:51 PM [facility] Chlamydia trachomatis+Neisseria gonorrhoeae DNA [Presence] in Unspecified specimen by DILIP with probe detection GONORRHEA/CHLAMYDIA NAAT Lab Routine with uncertain dates, antepartum 09/15/2024 2:10 PM [facility] End: 01-18-2026 OBSTETRIC ULTRASOUND WHI OBSTETRIC ULTRASOUND WHI Anc Imaging Routine Gestational diabetes mellitus (GDM) in third trimester, gestational diabetes method of control unspecified (HCC) Once per month for 5 Occurrences starting 01/18/2025 until 01/18/2026 [facility] Work Phone: Comment on above: Once per month for 5 Occurrences startin g 01/18/2025 until 01/18/2026 PAP TEST PAP TEST Lab Skylar gan Encounter for screening for malignant neoplasm of cervix 09/15/2024 2:51 PM [facility] UA DIP B/O UA DIP B/O Lab R outine Urinary tract infection without hematuria, site unspecified Ordered: 09/15/2024 [facility] Comment on above: Ordered: 09/15/2024 Payers Date Payer Category Payer Self-pay 2024 Medicaid [id number] 2024 Unknown [id number] 2002 Unknown [id number] 2.16.8 [id number] 2002 Unknown [id number] 2.16.8 [id number] 2002 Unknown [id number] 2.16.8 [id number] 2002 Unknown [id number] 2.16.8 40.1.648810.3.579.2.651 2002 Unknown [id number] 2.16.8 40.1.483216.3.579.2.651 2002 Unknown [id number] 2.16.8 40.1.845059.3.579.2.651 2002 Unknown [id number] 2.16.8 [id number] 2002 Unknown [id number] 2.16.8 [id number] Unknown [id number] 2.16.8 [id number] Unknown [id number] 2.16.8 [id number] Unknown [id number] 2.16.8 [id number] Unknown [id number] 2.16.8 [id number] Unknown [id number] 2.16.8 [id number] Social History Date Type Detail Facility [facility] Tobacco smoking consumption unknown [facility] Work Phone: Start: 2000 Sex assigned at Not on file [facility] Start: 09-15-2024 End: 09-27-2024 Gender identity Not on file [facility] Start: 09-15-2024 End: 09-27-2024 History of Social function [facility] Start: 12-04-2023 National Score (1-100), lower number is lower risk 50 [facility] Start: 09-15-2024 End: 03-26-2025 Tobacco smoking status NHIS Never smoked tobacco [facility] Start: 09-15-2024 Tobacco use and exposure Smokeless tobacco non-user [facility] Start: 09-16-2024 End: 03-28-2025 Alcoholic beverage intake Lifetime non-drinker (finding) [facility] Start: 07-06-2024 [facility] Start: 2000 Sex Assigned At Female W [facility] (I/We) worried [facility] (my/our) food would run out before (I/we) got money to buy more. Never true [facility] Medical Equipment Procedure Code Equipment Code Equipment Origin al Text Equipment Identifier Dates Use as directed to check glucose levels up to seven times daily. [id number] Start: 01-18-2025 Use as directed to check glucose levels up to seven times daily. [id number] Start: 01-18-2025 Goals Date Patient Goal Desired Activity /State Personal health goal Clinical Notes 08-19-2024 to 04-18-2025 Telephone Encounter - Lizeth Gleason RN - 04/18/2025 5:01 PM EDTTelephone Encounter - Lizeth Gleason RN - 04/18/2025 5:01 PM Val Dominguez RN - 03/28/2025 9:28 AM EDT Note Date & Type Note Facility 04-18-2025 Telephone encount er Note 03/27/25. Patient calling with questions regarding . Offered to assist her with talking with at [facility] (or [facility]), patient states that she has transportation issues even with Medicaid transport. The baby is feeding off of the right side only. Patient is pumping the left side. Feels that her milk supply has diminished. Upon further discussion, patient states that there is pus coming out of left nipple and breast is hard. Recommended patient have an appointment in our office or Urgent Care in closer proximity to her. Reviewed s/s of mastitis. Again offered to schedule her an appointment. Patient asked if she could be seen when her daughter has a well check on 04/26 and her S.O. is off work. Strongly recommended patient be seen sooner due to risk of infection/mastitis. Patient will talk with them and Medicaid transport first before calling us back to make an appointment. Lizeth Gleason RN [facility] 04-18-2025 Miscellaneous Notes Formattin g of this note might be different from the original. 03/27/25. Patient calling with questions regarding . Offered to assist her with talking with at [facility] (or [facility]), patient states that she has transportation issues even with Medicaid transport. The baby is feeding off of the right side only. Patient is pumping the left side. Feels that her milk supply has diminished. Upon further discussion, patient states that there is pus coming out of left nipple and breast is hard. Recommended patient have an appointment in our office or Urgent Care in closer proximity to her. Reviewed s/s of mastitis. Again offered to schedule her an appointment. Patient asked if she could be seen when her daughter has a well check on 04/26 and her S.O. is off work. Strongly recommended patient be seen sooner due to risk of infection/mastitis. Patient will talk with them and Medicaid transport first before calling us back to make an appointment. Lizeth Gleason RN documented in this encounter [facility] 03-28-2025 Hospital Discharg e instructions Additional Instructions Date of Discharge: 03/28/25 [facility] Work Phone: 03-28-2025 Note HNO ID: [id number] Author: VAL LIU RN Service: ? Author Type: Registered Nurse Type: Progress Notes Filed: 03/28/2025 09:30 Note Text: Patient delivered via by Dr. Tate on 03/27/25 at [facility]. See OB history. Val Liu RN [facility] 03-28-2025 History of Presen t illness Narrative Patient delivered via by Dr. Tate on 03/27/25 at [facility]. See OB history. Val Liu RN documented in this encounter [facility] 03-28-2025 Discharge summary Note Date/Time March 28, 2025 6:49am [facility] Medical Records Department [address] [place] [address] Discharge Summary 03/28/25 0624 MR#: [id number] Acct: [id number] Name: LÓPEZ BRAVO Rep #:[id number] : 2000 24 From: Lizeth Tate MD PCP: JACQUELINE Burris, MAI Statu s:ADM IN Location: [id number] Providers Date of Admission: 03/26/25 Date of Discharge: 03/28/25 Primary Care Physician: JACQUELINE Burris, DISABILITIES SERVICES OFFICER-C Reason For Visit: VAG Diagnosis Discharge Diagnosis (1) (spontaneous vaginal delivery): Status: Acute Code(s): O80 - Encounter for full-term uncomplicated delivery Plan Routine care Medications at Discharge Home Medications vitamins no.119-iron fumarate 29 mg-folic acid 1 mg tablet 1 tab PO DAILY 09/09/24 metoprolol succinate 50 mg tablet,extended release 24 hr (Toprol XL) 50 mg PO BID #120 tabs 09/15/24 pantoprazole 20 mg tablet,delayed release 20 mg PO QDAY 01/26/25 Hospital Course Operations None Procedures None Summary of Care Provided Minutes Spent on Discharge: 21 Hospital Course: without complication. No problems . Breast feeding. Physical Exam Const alert, oriented x3 and no apparent distress General Appearance: cooperative and comfortable Eyes PERRL and EOMs intact bilaterally Resp normal respiratory effort GI soft to palpation and non-tender Narrative: Fundus firm, below umbilicus. Uterus Palpation: uterus fundus firm ( below umbilicus) Extremity normal to inspection and full ROM Neuro oriented x3 and CN's II-XII intact bilaterally Psych mental status grossly normal Weight / BMI Weight Weight: 83.007 kg Body Mass Index (BMI) 33.5 ABG / Lab / Microbiology Data 03/26/25 10:05 Laboratory: Laboratory Results - last 24 hr 03/27/25 08:43: POC Glucose 97 D/C Instructions May resume sexual activity in: 6 weeks DC O2, CPAP, BIPAP Needs Home O2 Discharge instructions: No Please Follow Up With: Albert Swift MD When: Follow up with our office in 1-2 and 6 weeks or as needed. [phone] Meaningful Use Info Meaningful Use Meaningful Use Diagnoses (Choose all that apply): None applicable Discharge Plan Admission Admit Date/Time: 03/26/25 09:25 Primary Reason for Your Visit: labor Attending Provider: Lizeth Tate Primary Care Provider: Lidia Coyne Discharge Orders/Prescriptions Prescriptions: Continued PNV 119-iron fum-folic acid 29 mg iron- 1 mg tablet 1 tab PO DAILY metoprolol succinate [Toprol XL] 50 mg tablet extended release 24 hr 50 mg PO BID Qty: 120 3RF pantoprazole 20 mg tablet,delayed release (DR/EC) 20 mg PO QDAY Discontinued aspirin [Adult Low Dose Aspirin] 81 mg tablet,delayed release (DR/EC) 81 mg PO QDAY Referrals / Follow Up: Lidia Coyne, DISABILITIES SERVICES OFFICER-C [Primary Care Provider] - Disposition Disposition (needs filled in before D/C Order can be placed): Home, Self Care 03/28/25 0649 <Electronically signed by Lizeth Tate MD> Cosigner Signature (if applicable): CC: JACQUELINE DISABILITIES SERVICES OFFICER-C Lidia Coyne; Dr. Lizeth Tate MD~ Signed [facility] Work Phone: 1(749) 176-651808-18-2025 Progress note Author Lizeth Tate [facility] Note Date/Time March 28, 2025 6: 49am [facility] Medical Records Department [address] [place] [address] Progress Note - OBGYN 03/28/25 0623 MR#: [id number] Acct: [id number] Name: LÓPEZ BRAVO Rep #:[id number] : 2000 24 From: Lizeth Tate MD PCP: JACQUELINE Burris, DISABILITIES SERVICES OFFICER-C Statu s:ADM IN Location: [id number] Subjective Subjective Doing well. Ambulating and voiding without difficulty. Mild lochia. Breast feeding. Objective Data Objective Data Vital Signs: Vital Signs Temp Pulse Resp BP Pulse Ox O2 Del Method 98 F 74 16 120/81 H 97 Room Air 03/28/25 04:53 03/28/25 04:53 03/28/25 04:53 03/28/25 04:53 03/28/25 04:53 03/28/25 04:53 Oxygen Delivery Method Room Air Weight: 83.007 kg Body Mass Index (BMI) 33.5 Intake & Output: Intake and Output for Last 24 Hours 03/26/25 03/27/25 03/28/25 23:59 23:59 23:59 Intake Total 2856.66 / 2856.66 1031.52 / 1031.52 Output Total 1100 / 1100 1250 / 1250 Balance 1756.66 / 1756.66 -218.48 / -218.48 Lab / Micro Data 03/26/25 10:05 Labs: Laboratory Results - last 24 hr 03/27/25 08:43: POC Glucose 97 ROS Constitutional Constitutional: Denies headache(s) Cardiovascular Cardiovascular: Denies chest pain or dyspnea Gastrointestinal Gastrointestinal: Denies nausea or vomiting Genitourinary Genitourinary: Denies dysuria Physical Exam Const alert, oriented x3 and no apparent distress General Appearance: cooperative and comfortable Eyes PERRL and EOMs intact bilaterally Resp normal respiratory effort GI soft to palpation and non-tender Uterus Palpation: uterus fundus firm ( below umbilicus) Extremity normal to inspection and full ROM Neuro oriented x3 and CN's II-XII intact bilaterally Psych mental status grossly normal Assessment & Plan (1) (spontaneous vaginal delivery): PLAN: Plan discharge home 03/28/25 0649 <Electronically signed by Lizeth Tate MD> Cosigner Signature (if applicable): CC: ~ Signed [facility] Work Phone: 1(586) 223-434108-18-2025 Discharge summary [facility] Medical Records Department [address] [place] [address] Discharge Summary 03/28/2524 MR#: [id number] Acct: [id number] Name: LÓPEZ BRAVO Rep #:[id number] : 2000 From: Lizeth Tate MD PCP: JACQUELINE Burris, DISABILITIES SERVICES OFFICER-C Statu s:ADM IN Location: WB800-2 Providers Date of Admission: 03/26/25 Date of Discharge: 03/28/25 Primary Care Physician: JACQUELINE Burris, DISABILITIES SERVICES OFFICER-C Reason For Visit: VAG Diagnosis Discharge Diagnosis (1) (spontaneous vaginal delivery): Status: Acute Code(s): O80 - Encounter for full-term uncomplicated delivery Plan Routine care Medications at Discharge Home Medications vitamins no.119-iron fumarate 29 mg-folic acid 1 mg tablet 1 tab PO DAILY 09/09/24 metoprolol succinate 50 mg tablet,extended release 24 hr (Toprol XL) 50 mg PO BID #120 tabs 09/15/24 pantoprazole 20 mg tablet,delayed release 20 mg PO QDAY 01/26/25 Hospital Course Operations None Procedures None Summary of Care Provided Minutes Spent on Discharge: 21 Hospital Course: without complication. No problems . Breast feeding. Physical Exam Const alert, oriented x3 and no apparent distress General Appearance: cooperative and comfortable Eyes PERRL and EOMs intact bilaterally Resp normal respiratory effort GI soft to palpation and non-tender Narrative: Fundus firm, below umbilicus. Uterus Palpation: uterus fundus firm ( below umbilicus) Extremity normal to inspection and full ROM Neuro oriented x3 and CN's II-XII intact bilaterally Psych mental status grossly normal Weight / BMI Weight Weight: 83.007 kg Body Mass Index (BMI) 33.5 ABG / Lab / Microbiology Data 03/26/25 10:05 Laboratory: Laboratory Results - last 24 hr 03/27/25 08:43: POC Glucose 97 D/C Instructions May resume sexual activity in: 6 weeks DC O2, CPAP, BIPAP Needs Home O2 Discharge instructions: No Please Follow Up With: Albert Swift MD When: Follow up with our office in 1-2 and 6 weeks or as needed. [phone] Meaningful Use Info Meaningful Use Meaningful Use Diagnoses (Choose all that apply): None applicable Discharge Plan Admission Admit Date/Time: 03/26/25 09:25 Primary Reason for Your Visit: labor Attending Provider: Lizeth Tate Primary Care Provider: Lidia Coyne Discharge Orders/Prescriptions Prescriptions: Continued PNV 119-iron fum-folic acid 29 mg iron- 1 mg tablet 1 tab PO DAILY metoprolol succinate [Toprol XL] 50 mg tablet extended release 24 hr 50 mg PO BID Qty: 120 3RF pantoprazole 20 mg tablet,delayed release (DR/EC) 20 mg PO QDAY Discontinued aspirin [Adult Low Dose Aspirin] 81 mg tablet,delayed release (DR/EC) 81 mg PO QDAY Referrals / Follow Up: Lidia Coyne, DISABILITIES SERVICES OFFICER-C [Primary Care Provider] - Disposition Disposition (needs filled in before D/C Order can be placed): Home, Self Care 03/28/25 0649 Cosigner Signature (if applicable): CC: JACQUELINE DISABILITIES SERVICES OFFICER-C Lidia Coyne; Dr. Lizeth Tate MD~ Signed [facility]08-18-2025 Progress note [facility] Medical Records Department [address] [place] [address] Progress Note - OBGYN 03/28/25622 MR#: [id number] Acct: [id number] Name: LÓPEZ BRAVO Rep #:[id number] : 2000 From: Lizeth Tate MD PCP: JACQUELINE Burris, DISABILITIES SERVICES OFFICER-C Statu s:ADM IN Location: [id number] Subjective Subjective Doing well. Ambulating and voiding without difficulty. Mild lochia. Breast feeding. Objective Data Objective Data Vital Signs: Vital Signs Temp Pulse Resp BP Pulse Ox O2 Del Method 98 F 74 16 120/81 H 97 Room Air 03/28/25 04:53 03/28/25 04:53 03/28/25 04:53 03/28/25 04:53 03/28/25 04:53 03/28/25 04:53 Oxygen Delivery Method Room Air Weight: 83.007 kg Body Mass Index (BMI) 33.5 Intake & Output: Intake and Output for Last 24 Hours 03/26/25 03/27/25 03/28/25 23:59 23:59 23:59 Intake Total 2856.66 / 2856.66 1031.52 / 1031.52 Output Total 1100 / 1100 1250 / 1250 Balance 1756.66 / 1756.66 -218.48 / -218.48 Lab / Micro Data 03/26/25 10:05 Labs: Laboratory Results - last 24 hr 03/27/25 08:43: POC Glucose 97 ROS Constitutional Constitutional: Denies headache(s) Cardiovascular Cardiovascular: Denies chest pain or dyspnea Gastrointestinal Gastrointestinal: Denies nausea or vomiting Genitourinary Genitourinary: Denies dysuria Physical Exam Const alert, oriented x3 and no apparent distress General Appearance: cooperative and comfortable Eyes PERRL and EOMs intact bilaterally Resp normal respiratory effort GI soft to palpation and non-tender Uterus Palpation: uterus fundus firm ( below umbilicus) Extremity normal to inspection and full ROM Neuro oriented x3 and CN's II-XII intact bilaterally Psych mental status grossly normal Assessment & Plan (1) (spontaneous vaginal delivery): PLAN: Plan discharge home 03/28/25 0649 Cosigner Signature (if applicable): CC: ~ Signed [facility]08-18-2025 [facility] Medical Records Department [address] [place] [address] Discharge Summary 03/28/2524 MR#: [id number] Acct: [id number] Name: LÓPEZ BRAVO Rep #: [id number] : 2000 24 From: Lizeth Tate MD PCP: JACQUELINE Burris, LAURENC Status:ADM IN Location: GM830-2 Providers Date of Admission: 03/26/25 Date of Discharge: 03/28/25 Primary Care Physician: JACQUELINE Burris, DISABILITIES SERVICES OFFICER-C Reason For Visit: VAG Diagnosis Discharge Diagnosis (1) (spontaneous vaginal delivery): Status: Acute Code(s): O80 - Encounter for full-term uncomplicated delivery Plan Routine care Medications at Discharge Home Medications vitamins no.119-iron fumarate 29 mg-folic acid 1 mg tablet 1 tab PO DAILY 09/09/24 metoprolol succinate 50 mg tablet,extended release 24 hr (Toprol XL) 50 mg PO BID #120 tabs 09/15/24 pantoprazole 20 mg tablet,delayed release 20 mg PO QDAY 01/26/25 Hospital Course Operations None Procedures None Summary of Care Provided Minutes Spent on Discharge: 21 Hospital Course: without complication. No problems . Breast feeding. Physical Exam Const alert, oriented x3 and no apparent distress General Appearance: cooperative and comfortable Eyes PERRL and EOMs intact bilaterally Resp normal respiratory effort GI soft to palpation and non-tender Narrative: Fundus firm, below umbilicus. Uterus Palpation: uterus fundus firm ( below umbilicus) Extremity normal to inspection and full ROM Neuro oriented x3 and CN's II-XII intact bilaterally Psych mental status grossly normal Weight / BMI Weight Weight: 83.007 kg Body Mass Index (BMI) 33.5 ABG / Lab / Microbiology Data 03/26/25 10:05 Laboratory: Laboratory Results - last 24 hr 03/27/25 08:43: POC Glucose 97 D/C Instructions May resume sexual activity in: 6 weeks DC O2, CPAP, BIPAP Needs Home O2 Discharge instructions: No Please Follow Up With: Albert Swift MD When: Follow up with our office in 1-2 and 6 weeks or as needed. [phone] Meaningful Use Info Meaningful Use Meaningful Use Diagnoses (Choose all that apply): None applicable Discharge Plan Admission Admit Date/Time: 03/26/25 09:25 Primary Reason for Your Visit: labor Attending Provider: Lizeth Tate Primary Care Provider: Lidia Coyne Discharge Orders/Prescriptions Prescriptions: Continued PNV 119-iron fum-folic acid 29 mg iron- 1 mg tablet 1 tab PO DAILY metoprolol succinate [Toprol XL] 50 mg tablet extended release 24 hr 50 mg PO BID Qty: 120 3RF pantoprazole 20 mg tablet,delayed release (DR/EC) 20 mg PO QDAY Discontinued aspirin [Adult Low Dose Aspirin] 81 mg tablet,delayed release (DR/EC) 81 mg PO QDAY Referrals / Follow Up: Lidia Coyne, DISABILITIES SERVICES OFFICER-C [Primary Care Provider] - Disposition Disposition (needs filled in before D/C Order can be placed): Home, Self Care 03/28/25 0649 Cosigner Signature (if applicable): CC: [facility] DISABILITIES SERVICES OFFICER-C Lidia Coyne; Dr. Lizeth Tate MD [facility]08-17-2025 Progress note Author Lizeth Tate [facility] Note Date/Time March 27, 2025 8: 43am [facility] Medical Records Department [address] [place] [address] Progress Note - OBGYN 03/27/25 0840 MR#: [id number] Acct: [id number] Name: LÓPEZ BRAVO Rep #:[id number] : 2000 24 From: Lizeth Tate MD PCP: Lidia Coyne, VSC, DISABILITIES SERVICES OFFICER-C Statu s:ADM IN Location: [id number] Subjective Subjective Doing well. Ambulating and voiding without difficulty. Mild lochia. Breast feeding. Objective Data Objective Data Vital Signs: Vital Signs Temp Pulse Resp BP Pulse Ox O2 Del Method 98.7 F 78 16 108/65 96 Room Air 03/27/25 04:52 03/27/25 04:52 03/27/25 04:52 03/27/25 04:52 03/27/25 04:52 03/27/25 04:52 Oxygen Delivery Method Room Air Weight: 83.007 kg Body Mass Index (BMI) 33.5 Intake & Output: Intake and Output for Last 24 Hours 03/25/25 03/26/25 03/27/25 23:59 23:59 23:59 Intake Total 2856.66 / 2856.66 1031.52 / 1031.52 Output Total 1100 / 1100 450 / 450 Balance 1756.66 / 1756.66 581.52 / 581.52 Lab / Micro Data 03/26/25 10:05 Labs: Laboratory Results - last 24 hr 03/26/25 10:05: WBC 10.4, RBC 3.89 L, Hgb 12.8, Hct 37.1, MCV 95.4, MCH 32.9 H, MCHC 34.5, RDW Std Deviation 46.4 H, RDW Coeff of South 13.2, Plt Count 190, MPV 11.6, Immature Gran % (Auto) 0.600, Neut % (Auto) 78.7 H, Lymph % (Auto) 15.2 L,Evangeline % (Auto) 5.0, Eos % (Auto) 0.3, Baso % (Auto) 0.2, Absolute Neuts (auto) 8.2 H, Absolute Lymphs (auto) 1.58, Nucleated RBC % 0, Syphilis Total Ab Nonreactive, Blood Type A POSITIVE, Antibody Screen NEGATIVE 03/26/25 11:56: POC Glucose 91 03/26/25 13:42: POC Glucose 91 03/26/25 14:49: POC Glucose 89 03/26/25 15:42: POC Glucose 91 03/26/25 16:54: POC Glucose 106 03/26/25 18:43: POC Glucose 90 03/26/25 19:41: POC Glucose 87 03/26/25 21:18: POC Glucose 99 03/26/25 22:25: POC Glucose 94 03/27/25 00:26: POC Glucose 93 ROS Constitutional Constitutional: Denies headache(s) Cardiovascular Cardiovascular: Denies chest pain or dyspnea Gastrointestinal Gastrointestinal: Denies nausea or vomiting Genitourinary Genitourinary: Denies dysuria Physical Exam Const alert, oriented x3 and no apparent distress General Appearance: cooperative and comfortable Eyes PERRL and EOMs intact bilaterally Resp normal respiratory effort GI soft to palpation and non-tender Uterus Palpation: uterus fundus firm ( below umbilicus) Extremity normal to inspection and full ROM Neuro oriented x3 and CN's II-XII intact bilaterally Psych mental status grossly normal Assessment & Plan (1) (spontaneous vaginal delivery): PLAN: Plan Routine care 03/27/25 0843 <Electronically signed by Lizeth Tate MD> Cosigner Signature (if applicable): CC: ~ Signed [facility] Work Phone: 1(817) 689-588008-17-2025 Procedure note [facility] Medical Records Department [address] [place] [address] OB Vaginal Delivery 03/27/25 0005 MR#: [id number] Acct: [id number] Name: LÓPEZ BRAVO Rep #:[id number] : 2000 24 From: Lizeth Tate MD PCP: JACQUELINE Burris, DISABILITIES SERVICES OFFICER-C Statu s:ADM IN Location: KD189-3 Assessment & Plan (1) (spontaneous vaginal delivery): Maternal Data Information Final HOOD: 03/29/25 Gestational age: 39+4 Vaginal Delivery Maternal Presentation Maternal Presentation: Spontaneous Rupture of Membranes Vaginal Delivery Information Procedure Performed: Spontaneous Vaginal Delivery Surgeon/Practitioner: Lizeth Tate Date of Procedure: 03/27/25 Pre-Procedure Diagnosis: SROM Post-Procedure Diagnosis: Type of anesthesia: Epidural Estimated Blood Loss: 250 Time of Delivery: 23:38 Findings Description of procedure: Presented with SROM. Labored without augmentation. Did receive an epidural. Oncecomplete pushed for3 hours and delivered over an intact perineum. The shoulderswere forthcoming and the body deliveredeasily. There was a cord around the neckx 1, loose. It was easily reduced. The cried upon delivery. The cord was clamped and cut at 1 minute. The placenta delivered with gentle traction. A 1stdegree laceration was repaired with 2-0 Vicryl. Uterine bleeding was brisk despite fundal massage. Methergine was given x 1. All sponge, needle and lap counts were correct. Presentation: Vertex and KHUSHBOO Amniotic Membrane Rupture Type: Spontaneous Amniotic Fluid Description: Clear Placental Delivery Description: Spontaneous Specimen collected: No Cord Vessel Description: 3 Vessels Cord Entanglement: Around neck x 1, loose Nuchal Cord Compression: Without compression Infant A Gender: Female (1 minute): 8 (5 minute): 9 Delayed Cord Clamping: Yes Hotel Assistant General Manager block saw operator: No Post Vaginal Deli Medications given after delivery: IV Pitocin Episiotomy Description: None Laceration: Midline and 1st degree Complication Complications: No 03/27/2557 Cosigner Signature (if applicable): CC: JACQUELINE DISABILITIES SERVICES OFFICER-C Lidia Coyne; Dr. Lizeth Tate MD~ Signed [facility]08-17-2025 Progress note [facility] Medical Records Department [address] [place] [address] Progress Note - OBGYN 03/27/25 0840 MR#: [id number] Acct: [id number] Name: LÓPEZ BRAVO Rep #:[id number] : 2000 24 From: Lizeth Tate MD PCP: JACQUELINE Burris, DISABILITIES SERVICES OFFICER-C Statu s:ADM IN Location: LO901-0 Subjective Subjective Doing well. Ambulating and voiding without difficulty. Mild lochia. Breast feeding. Objective Data Objective Data Vital Signs: Vital Signs Temp Pulse Resp BP Pulse Ox O2 Del Method 98.7 F 78 16 108/65 96 Room Air 03/27/25 04:52 03/27/25 04:52 03/27/25 04:52 03/27/25 04:52 03/27/25 04:52 03/27/25 04:52 Oxygen Delivery Method Room Air Weight: 83.007 kg Body Mass Index (BMI) 33.5 Intake & Output: Intake and Output for Last 24 Hours 03/25/25 03/26/25 03/27/25 23:59 23:59 23:59 Intake Total 2856.66 / 2856.66 1031.52 / 1031.52 Output Total 1100 / 1100 450 / 450 Balance 1756.66 / 1756.66 581.52 / 581.52 Lab / Micro Data 03/26/25 10:05 Labs: Laboratory Results - last 24 hr 03/26/25 10:05: WBC 10.4, RBC 3.89 L, Hgb 12.8, Hct 37.1, MCV 95.4, MCH 32.9 H, MCHC 34.5, RDW Std Deviation 46.4 H, RDW Coeff of South 13.2, Plt Count 190, MPV 11.6, Immature Gran % (Auto) 0.600, Neut% (Auto) 78.7 H, Lymph % (Auto) 15.2 L,Evangeline % (Auto) 5.0, Eos % (Auto) 0.3, Baso % (Auto) 0.2, Absolute Neuts (auto) 8.2 H, Absolute Lymphs (auto) 1.58, Nucleated RBC % 0, Syphilis Total Ab Nonreactive, Blood Type A POSITIVE, Antibody Screen NEGATIVE 03/26/25 11:56: POC Glucose 91 03/26/25 13:42: POC Glucose 91 03/26/25 14:49: POC Glucose 89 03/26/25 15:42: POC Glucose 91 03/26/25 16:54: POC Glucose 106 03/26/25 18:43: POC Glucose 90 03/26/25 19:41: POC Glucose 87 03/26/25 21:18: POC Glucose 99 03/26/25 22:25: POC Glucose 94 03/27/25 00:26: POC Glucose 93 ROS Constitutional Constitutional: Denies headache(s) Cardiovascular Cardiovascular: Denies chest pain or dyspnea Gastrointestinal Gastrointestinal: Denies nausea or vomiting Genitourinary Genitourinary: Denies dysuria Physical Exam Const alert, oriented x3 and no apparent distress General Appearance: cooperative and comfortable Eyes PERRL and EOMs intact bilaterally Resp normal respiratory effort GI soft to palpation and non-tender Uterus Palpation: uterus fundus firm ( below umbilicus) Extremity normal to inspection and full ROM Neuro oriented x3 and CN's II-XII intact bilaterally Psych mental status grossly normal Assessment & Plan (1) (spontaneous vaginal delivery): PLAN: Plan Routine care 03/27/25 0843 Cosigner Signature (if applicable): CC: ~ Signed [facility]08-16-2025 History and physical note Author Lizeth Tate [facility] Note Date/Time March 26, 2025 2: 30pm [facility] Medical Records Department [address] [place] [address] H&P Exam - SUPERVISOR PREP 03/26/25 0942 MR#: [id number] Acct: [id number] Name: LÓPEZ BRAVO Rep #:[id number] : 2000 24 From: Lizeth Tate MD PCP: JACQUELINE Burris, DISABILITIES SERVICES OFFICER-C Statu s:ADM IN Location: [place] [id number] HPI - General General Date of Admission: 03/26/25 Date of Service: 03/26/25 Chief Complaint: ROM HPI Narrative LÓPEZ BRAVO, is a 24 F who presents LOF and spotting. GBS positive. Gross ROM with cervical change. Admit for labor Maternal Data Information Final HOOD: 03/29/25 Gestational age: 39+4 PFSH PFSH Medical History Asthma GERD (gastroesophageal reflux disease) Methylenetetrahydrofolate reductase deficiency Dyspnea Inappropriate sinus tachycardia Home Medications ?Medication ?Instructions ?Recorded ?Last Taken ?Type vitamins no.119-iron 1 tab PO DAILY 09/09/24 03/26/25 History fumarate 29 mg-folic acid 1 mg tablet aspirin 81 mg tablet,delayed 81 mg PO QDAY 09/15/24 Un known History release (Adult Low Dose Aspirin) metoprolol succinate 50 mg 50 mg PO BID #120 tabs 01/02 Unknown Rx tablet,extended release 24 hr (Toprol XL) pantoprazole 20 mg tablet,delayed 20 mg PO QDAY Unknown History release Allergy/AdvReac Type Severity Reaction Status Date / Time ranitidine Allergy Intermediate PT UNSURE Verified 03/26/25 09:10 OF REACTION Family History Sister Heart disease Surgical History No history of previous surgery Social History Smoking Status: Never smoker History 1 Elective abortions Hx Para 0 Spontaneous abortions Hx # Term Pregnancies Ectopic pregnancies Hx # Pregnancies Multiple births # of living children NST FHR Rate Baby A Baseline: 135 Variability:: Moderate Accelerations:: 15 x 15 Decelerations:: None NST Reactive:: Yes FHR Category:: Category I Uterine Activity:: q 3 ROS Constitutional Constitutional: Denies fatigue, fever(s) or malaise Eyes Eyes: Denies change in vision ENT HEENT: Denies dizziness or headache(s) Cardiovascular Cardiovascular: Denies chest pain, dyspnea or lightheadedness Respiratory/Chest Respiratory/Chest: Denies cough or dyspnea Gastrointestinal Gastrointestinal: Denies change in bowel habits Genitourinary Genitourinary: Denies burning urination or genital lesions Integumentary Integumentary: Denies rash Neurologic Neurologic: Denies confusion, dizziness, headache(s), numbness or weakness Vital Signs Vital Signs Vital Signs: 03/26/25 09:01 03/26/25 09:01 Pulse Rate 96 Blood Pressure 119/77 BP Systolic 119 BP Diastolic 77 Physical Exam Const alert and no apparent distress General Appearance: cooperative HEENT normocephalic Resp normal respiratory effort Cardio regular rate GI soft to palpation GI Narrative: gravid, nontender, appropriate for gestational age Extremity no calf tenderness General Extremity: edema Skin no wounds Rashes: No rashes noted Psych activity/motor behavior normal Labs Labs Labs: Blood Type A POSITIVE Antibody Screen NEGATIVE Hct 37.1 % (37-47) Hgb 12.8 g/dL (12.0-15.0) Syphilis Total Ab Nonreactive (Nonreactive) Assessment & Plan (1) SROM (spontaneous rupture of membranes): (2) 39 weeks gestation of : (3) Positive GBS test: PLAN: PCN PLAN: Plan Epidural prn Pitocin augmentation prn 03/26/25 1430 <Electronically signed by Lizeth Tate MD> Cosigner Signature (if applicable): CC: JACQUELINE DISABILITIES SERVICES OFFICER-C Lidia Coyne; Dr. Lizeth Tate MD~ Signed [facility] Work Phone: 1(315) 713-690608-16-2025 History and physical note [facility] Medical Records Department [address] [place] [address] H&P Exam - SUPERVISOR PREP 03/26/25 0942 MR#: [id number] Acct: [id number] Name: LÓPEZ BRAVO Rep #:[id number] : 2000 24 From: Lizeth Tate MD PCP: JACQUELINE Burris, DISABILITIES SERVICES OFFICER-C Statu s:ADM IN Location: MF209-9 HPI - General General Date of Admission: 03/26/25 Date of Service: 03/26/25 Chief Complaint: ROM HPI Narrative LÓPEZ BRAVO, is a 24 F who presents LOF and spotting. GBS positive. Gross ROM with cervical change. Admit for labor Maternal Data Information Final HOOD: 03/29/25 Gestational age: 39+4 PFSH [facility] Medical History Asthma GERD (gastroesophageal reflux disease) Methylenetetrahydrofolate reductase deficiency Dyspnea Inappropriate sinus tachycardia Home Medications ?Medication ?Instructions ?Recorded ?Last Taken ?Type vitamins no.119-iron 1 tab PO DAILY 09/09/24 03/26/25 History fumarate 29 mg-folic acid 1 mg tablet aspirin 81 mg tablet,delayed 81 mg PO QDAY 09/15/24 Un known History release (Adult Low Dose Aspirin) metoprolol succinate 50 mg 50 mg PO BID #120 tabs 01/02 Unknown Rx tablet,extended release 24 hr (Toprol XL) pantoprazole 20 mg tablet,delayed 20 mg PO QDAY Unknown History release Allergy/AdvReac Type Severity Reaction Status Date / Time ranitidine Allergy Intermediate PT UNSURE Verified 03/26/25 09:10 OF REACTION Family History Sister Heart disease Surgical History No history of previous surgery Social History Smoking Status: Never smoker History 1 Elective abortions Hx Para 0 Spontaneous abortions Hx # Term Pregnancies Ectopic pregnancies Hx # Pregnancies Multiple births # of living children NST FHR Rate Baby A Baseline: 135 Variability:: Moderate Accelerations:: 15 x 15 Decelerations:: None NST Reactive:: Yes FHR Category:: Category I Uterine Activity:: q 3 ROS Constitutional Constitutional: Denies fatigue, fever(s) or malaise Eyes Eyes: Denies change in vision ENT HEENT: Denies dizziness or headache(s) Cardiovascular Cardiovascular: Denies chest pain, dyspnea or lightheadedness Respiratory/Chest Respiratory/Chest: Denies cough or dyspnea Gastrointestinal Gastrointestinal: Denies change in bowel habits Genitourinary Genitourinary: Denies burning urination or genital lesions Integumentary Integumentary: Denies rash Neurologic Neurologic: Denies confusion, dizziness, headache(s), numbness or weakness Vital Signs Vital Signs Vital Signs: 03/26/25 09:01 03/26/25 09:01 Pulse Rate 96 Blood Pressure 119/77 BP Systolic 119 BP Diastolic 77 Physical Exam Const alert and no apparent distress General Appearance: cooperative HEENT normocephalic Resp normal respiratory effort Cardio regular rate GI soft to palpation GI Narrative: gravid, nontender, appropriate for gestational age Extremity no calf tenderness General Extremity: edema Skin no wounds Rashes: No rashes noted Psych activity/motor behavior normal Labs Labs Labs: Blood Type A POSITIVE Antibody Screen NEGATIVE Hct 37.1 % (37-47) Hgb 12.8 g/dL (12.0-15.0) Syphilis Total Ab Nonreactive (Nonreactive) Assessment & Plan (1) SROM (spontaneous rupture of membranes): (2) 39 weeks gestation of : (3) Positive GBS test: PLAN: PCN PLAN: Plan Epidural prn Pitocin augmentation prn 03/26/25 1430 Cosigner Signature (if applicable): CC: [facility] DISABILITIES SERVICES OFFICERKeeganC Lidia Coyne; Dr. Lizeth Tate MD~ Signed [facility]08-15-2025 Telephone encounter Note* Telephone Encounter - Lizeth Gleason RN - 03/25/2025 4:05 PM EDT Induction moved to 03/28. Patient aware. Lizeth Gleason RN [facility]08-15-2025 Miscellaneous Notes* Telephone Encounter - Lizeth Gleason RN - 03/25/2025 4:05 PM EDT Induction moved to 03/28. Patient aware. Lizeth Gleason RN * Telephone Encounter - Lizeth Tate MD - 03/25/2025 3:43 PM EDT Could be moved to Friday however there may not be any available times slots at this point * Telephone Encounter - Isis Morse LPN - 03/25/2025 2:45 PM EDT Ob is 39w3d patient called c/o brownish-red spotting today and on-going lower back pain and pelvic pressure. Denies LOF, baby active. Patient had pelvic exam yesterday at ob appointment. Patient is scheduled for an induction 03/29 at 7pm. Patient asking if induction can be moved to 03/28/25 or this weekend? documented in this encounterW[facility] Telephone encounter Note * Telephone Encounter - Lizeth Tate MD - 03/25/2025 3:43 PM EDT Could be moved to Friday however there may not be any available times slots at this point [facility] Work Phone: 1(869) 119-998108-15-2025 Telephone encounter Note* Telephone Encounter - Isis Morse LPN - 03/25/2025 2:45 PM EDT Ob is 39w3d patient called c/o brownish-red spotting today and on-going lower back pain and pelvic pressure. Denies LOF, baby active. Patient had pelvic exam yesterday at ob appointment. Patient is scheduled for an induction 03/29 at 7pm. Patient asking if induction can be moved to 03/28/25 or this weekend? [facility]08-15-[facility] Telephone encounter Note* Telephone Encounter - Lizeth Gleason RN - 03/25/2025 1:40 PM EDT Patient is scheduled 03/29 for induction of labor. Lizeth Gleason RN [facility]08-15-2025 Miscellaneous Notes* Telephone Encounter - Lizeth Gleason RN - 03/25/2025 1:40 PM EDT Patient is scheduled 03/29 for induction of labor. Lizeth Gleason RN * Telephone Encounter - Anh Olson RN - 03/25/2025 12:41 PM EDT Patient was seen 03/24/[address] Rodriguez. She was to call back with a preferred induction date. Patient calling back stating she would like to be induced on 03/29/2025. Any other dates would work but wants to avoid 03/28/2025 documented in this encounterW[facility]08-15-2025 Telephone encounter Note * Telephone Encounter - Anh Olson RN - 03/25/2025 12:41 PM EDT Patient was seen 03/24/[address] Rodriguez. She was to call back with a preferred induction date. Patient calling back stating she would like to be induced on 03/29/2025. Any other dates would work but wants to avoid 03/28/2025 [facility]08-14-[facility] Progress note* Quick Notes - Sharyn Rodriguez MD - 03/24/2025 4:10 PM EDT SW- Pt doing well. Some pressure but [...] she would like her induction. Discussed r/b/a inductionand consent signed. Reviewed process of induction. Patient was instructed to call the office tomorrow with when she would like the induction - Labor precautions reviewed Sharyn Rodriguez DO [facility]08-14-2025 Miscellaneous Notes* Quick Notes - Sharyn Rodriguez MD - 03/24/2025 4:10 PM EDT SW- Pt doing well. Some pressure but [...] she would like her induction. Discussed r/b/a inductionand consent signed. Reviewed process of induction. Patient was instructed to call the office tomorrow with when she would like the induction - Labor precautions reviewed Sharyn Rodriguez DO documented in this encounterWvumedicine [facility]08-14-2025 Instructions* Patient Instructions* Deb Weiss MA - 03/24/2025 3:55 PM EDT SEQUENTIAL SCREENINGS The [facility] offers sequential screenings for women who are interested in screenings for chromosomal abnormalities and certain defects during a . The sequential screen combinesultrasound and blood tests to determine the risk [...] this testing. It will require an appointment withour computer system technician. This is not an ultrasound performed [...] the above symptoms, contact our office at [phone] and ask to speak with anurse. After hours, you can call doctors registry at [phone] OR call [facility] at [phone] ask to have the doctor rn radiation paged. If you consider this an emergency, dial 7-- or go to your nearest emergency department. NEED HELP? Are you dealing with a violent or abusive relationship? Are you a victim of rape or sexual assult? Call [facility] ([place]) 24 hour Crisis Hotline: 850.752.6661 or 398-901-8137. MANUAL Your Guide to a Healthy manual is now on-line. Visit [email or web address] to download your free copy documented in this encounterW[facility]2025 Progress note* Quick Notes - Lidia Raza APRN.CNM - 03/22/2025 12:29 PM EDT BLADIMIR-S: López Bravo is a 24 year [...] RTO in 1 week Lidia Raza APRN.CNM [facility]2025 Miscellaneous Notes* Quick Notes - Lidia Raza APRN.CNM - 03/22/2025 12:29 PM EDT BLADIMIR-S: López Bravo is a 24 year [...] week Lidia Raza APRN.CNM documented in this encounterWvumedicine [facility]08-08-2025 NoteHNO ID: [id number] Author: JORGE BERMUDEZ, ? Service: ? 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 Author [...] 40w6d - RTO 1 wk Sharyn Rodriguez [facility]08-06-2025 NoteHNO ID: [id number] Author: JORGE BERMUDEZ, ? Service: ? Author Type: Patient Assistant Distribution Manager Type: Progress Notes Filed: 03/16/2025 08:25 Note Text: POPULATION HEALTH NAVIGATION OUTREACH Action/FYI 3rd attempt unable to leave message to add farm machine tender to ob provider field Reason for Outreach Medicaid OB/Peds Care Gaps due: to PCP Visit Patient Contacted: Unable or unnecessary to reach patient: Unable to reach patient Unable to leave message Navigation Signature: Jorge Bermudez Population Health Navigator March 16, 2025 8:22 [facility]08-05-2025 NoteHNO ID: [id number] Author: JORGE BERMUDEZ, ? Service: ? Author Type: Patient Assistant Distribution Manager Type: Progress Notes Filed: 03/15/2025 09:11 Note Text: POPULATION HEALTH NAVIGATION OUTREACH Action/FYI Unable to leave message to add farm machine tender to OB provider field, verify/est pcp My chart sent Reason for Outreach Medicaid OB/Peds Care Gaps due: to PCP Visit Patient Contacted: Unable or unnecessary to reach patient: Unable to reach patient Unable to leave message [employer] message sent Navigation Signature: Jorge Bermudez Population Health Navigator March 15, 2025 9:10 [facility]08-05-2025 History of Present illness Narrative* Jorge Bermudez - 03/15/2025 9:09 AM EDT POPULATION HEALTH NAVIGATION OUTREACH Action/FYI Unable to leave message to add farm machine tender to OB provider field, verify/est pcp My chart sent Reason for Outreach Medicaid OB/Peds Care Gaps due: to PCP Visit Patient Contacted: Unable or unnecessary to reach patient: Unable to reach patient Unable to leave message [employer] message sent Navigation Signature: Jorge Bermudez Population Health Navigator March 15, 2025 9:10 AM documented in this encounterWvumedicine [facility]08-05-2025 NotePatient Outreach (NETNAV) LÓPEZ BRAVO ([id number]) 4 F Date Time Provider Department 03/15/25 JORGE BERMUDEZ During your visit today, we recorded the following information about you: Jorge Bermudez 03/15/2025 9:11 AM Signed POPULATION HEALTH NAVIGATION OUTREACH Action/FYI Unable to leave message to add farm machine tender to OB provider field, verify/est pcp My chart sent Reason for Outreach Medicaid OB/Peds Care Gaps due: to PCP Visit Patient Contacted: Unable or unnecessary to reach patient: Unable to reach patient Unable to leave message MyChart message sent Navigation Signature: Jorge Bermudez Population [employer] Navigator March 15, 2025 9:10 AM Jorge Bermudez 03/16/2025 8:25 AM Addendum POPULATION HEALTH NAVIGATION OUTREACH Action/FYI 3rd attempt unable to leave message to add farm machine tender to ob provider field Reason for Outreach Medicaid OB/Peds Care Gaps due: to PCP Visit Patient Contacted: Unable or unnecessary to reach patient: Unable to reach patient Unable to leave message Navigation Signature: Jorge Bermudez [employer] Navigator March 16, 2025 8:22 AM Jorge Bermudez 03/18/2025 7:31 AM Signed POPULATION HEALTH NAVIGATION OUTREACH Action/FYI Patient responded via my chart 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 [facility] Reason for Outreach Medicaid OB/Peds Care Gaps due: to PCP Visit Patient Contacted: Spoke to patient/parent/or legal guardian Patient identified by name and : Yes Medicaid OB/Peds actions taken: Patient declined: Patient requested call back from navigator/ will call navigator back Navigation Signature: Jorge Bermudez [employer] Navigator March 18, 2025 7:30 AM Allergies [...] (HCC)*03/13/2025 Encounter Status:Closed by JORGE BERMUDEZ on 03/15/25[facility] 03-11-[facility] Instructions* Patient Instructions* Kayla Esteban MA - 03/11/2025 2:30 PM EDT SEQUENTIAL SCREENINGS The [facility] offers sequential screenings for women who are interested in screenings for chromosomal abnormalities and certain defects during a . The sequential screen combinesultrasound and blood tests to determine the risk [...] this testing. It will require an appointment withour computer system technician. This is not an ultrasound performed [...] the above symptoms, contact our office at [phone] and ask to speak with anurse. After hours, you can call doctors registry at [phone] OR call [facility] at [phone] ask to have the doctor rn radiation paged. If you consider this an emergency, dial 1-1-7 or go to your nearest emergency department. NEED HELP? Are you dealing with a violent or abusive relationship? Are you a victim of rape or sexual assult? Call [facility] ([place]) 24 hour Crisis Hotline: 408.517.1336 or 868-809-1701. MANUAL Your Guide to a Healthy manual is now on-line. Visit [email or web address] to download your free copy documented in this encounterWvumedicine [facility]07-25-2025 Note Indication Evaluation of growth Limited care, [...] 6 oz EFW by: Hadlock (HC-AC-FL) Extended Operations/Dispatch 5.6 mm Extremities / Bony Struc FL [...] Ileana Henderson RDMS Read By: Devorah Washington M.D.MATERNAL [id number] Progress note* Quick Notes - Albert Swift MD - 03/03/2025 2:44 PM EDT RR- VB No. LOF No. CTXS No. Movement: present. Other c/o: No. Medication list reviewed. SENSITIVE EXAM: Sensitive exam not performed. Physical Exam See Flow Sheet Abd: soft, nontender, gravid Ext: edema: Trace A/P 36w2d Estimated Date of Delivery: 03/29/25 Assessment & Plan Supervision of high risk in third trimester ([facility]) Orders: URINE OB DIP B/O Diet controlled gestational diabetes mellitus (GDM) in third trimester ([facility]) US today, final report pending. BS log reviewed, excellent control Orders: URINE OB DIP B/O Hypothyroidism, unspecified type TSH due today Orders: URINE OB DIP B/O Had amoxicillin yesterday so defer gbs until next visit kick counts f/u in 1 week or prn urine dip reviewed cont. PNV Albert Swift M.D. [facility]07-24-2025 Miscellaneous Notes* Quick Notes - Albert Swift MD - 03/03/2025 2:44 PM EDT RR- VB No. LOF No. CTXS No. Movement: present. Other c/o: No. Medication list reviewed. SENSITIVE EXAM: Sensitive exam not performed. Physical Exam See Flow Sheet Abd: soft, nontender, gravid Ext: edema: Trace A/P 36w2d Estimated Date of Delivery: 03/29/25 Assessment & Plan Supervision of high risk in third trimester ([facility]) Orders: URINE OB DIP B/O Diet controlled gestational diabetes mellitus (GDM) in third trimester ([facility]) US today, final report pending. BS log reviewed, excellent control Orders: URINE OB DIP B/O Hypothyroidism, unspecified type TSH due today Orders: URINE OB DIP B/O Had amoxicillin yesterday so defer gbs until next visit kick counts f/u in 1 week or prn urine dip reviewed cont. PNV Albert Swift M.D. documented in this encounterWvumedicine [facility]07-24-2025 Instructions* Patient Instructions* Isabel Guzmán MA - 03/03/2025 1:05 PM EDT SEQUENTIAL SCREENINGS The [facility] offers sequential screenings for women who are interested in screenings for chromosomal abnormalities and certain defects during a . The sequential screen combinesultrasound and blood tests to determine the risk [...] this testing. It will require an appointment withour computer system technician. This is not an ultrasound performed [...] the above symptoms, contact our office at [phone] and ask to speak with anurse. After hours, you can call doctors registry at [phone] OR call [facility] at [phone] ask to have the doctor rn radiation paged. If you consider this an emergency, dial 9-1-5 or go to your nearest emergency department. NEED HELP? Are you dealing with a violent or abusive relationship? Are you a victim of rape or sexual assult? Call [facility] ([place]) 24 hour Crisis Hotline: 737.460.6361 or 776-179-3163. MANUAL Your Guide to a Healthy manual is now on-line. Visit [email or web address] to download your free copy documented in this encounterWvumedicine [facility]07-23-2025 Instructions* Patient Instructions* Capri Brown MD - 03/02/2025 2:22 PM [...] leave. Please call us or send a SVXR message if that happens documented in this encounterWvumedicine [facility]07-23-2025 NoteHNO ID: [id number] Author: MONTSERRAT VADLEZ, PREETI Service: ? Author Type: Registered Nurse Type: [...] = 0 mm PENICILLIN GK 10,000 UNITS/ML [facility]: 9339-4060-45 LOT: [id number] Exp: 10/08/2025 P: W = 0 mm F = 0 mm ID: W = 0 mm F = 0 mm PREPEN -(benzylpenicilloyl polylysine) full strength ND: 00706-184-13 LOT: [id number] Exp: 09/10/2025 P: W = 0 mm F = 0 mm ID: W = 0 mm F = 0 mm AMPICILLIN SODIUM 12.5mg/ml [facility]: 0946-2804-23 LOT: [id number] Exp: 01/08/2027 P: W = 0 mm [...] to starting direct oral challenge 1244 Amoxicillin (Hydraulic Press Tender: [employer], [facility]: 3407-0559-05 , Lot #: [id number], Expiration: 08/10/2026) 25 mg/0.5 ml oral suspension po given per Capri Brown MD's orders. 1314 Patient without signs of symptoms of allergic reaction. 1318 Amoxicillin (Hydraulic Press Tender: Hikma, [facility]: 1514-8347-37 , Lot #: [id number], Expiration: 08/10/2026) 225 mg/4.5 ml oral suspension po given per Capri Brown MD's orders. 1418 Pt. without signs or symptoms of allergic reaction. 1419 Vitals Obtained post challenge. 107/73 BP, 108 HR, 16 RR, 98 SpO2, 36.8 T Pt. seen by Capri Brown MD prior to leaving the office. Montserrat Valdez [facility]NB[facility]esville [facility]07-23-2025 History of Present illness Narrative* Montserrat Valdez RN - 03/02/2025 11:59 AM EDT ANTIBIOTIC PERCUTANEOUS AND INTRADERMAL SKIN TESTING/ Mean [...] = 0 mm PENICILLIN GK 10,000 UNITS/ML [facility]: 2644-1599-82 LOT: [id number] Exp: 10/08/2025 P: W = 0 mm F = 0 mm ID: W = 0 mm F = 0 mm PREPEN -(benzylpenicilloyl polylysine) full strength [facility]: 58692-937-74 LOT: [id number] Exp: 09/10/2025 P: W = 0 mm F = 0 mm ID: W = 0 mm F = 0 mm AMPICILLIN SODIUM 12.5mg/ml [facility]: 9500-3468-81 LOT: [id number] Exp: 01/08/2027 P: W = 0 mm F = 0 mm ID: W = 0 mm F = 0 mm HISTAMINE- positive control (Histamine base 6mg/ml)for Prick and 0.1 mg/ml for intradermal P: W = 3mm F = 9 mm Hydrocortisone cream applied per patients request and orders. Amoxicillin Oral Challenge Amoxicillin obtained from [employer] 1115 Informed consent for Amoxicillin oral challenge obtained by Capri Brown MD 1230 patient given jesús crackers prior to starting direct oral challenge 1244 Amoxicillin (Hydraulic Press Tender: [employer], [facility]: 4691-7882-94 , Lot #: [id number], Expiration: 08/10/2026) 25 mg/0.5 ml oral suspension po given per Capri Brown MD's orders. 1314 Patient without signs of symptoms of allergic reaction. 1318 Amoxicillin (Hydraulic Press Tender: Hikma, [facility]: 6304-0297-67 , Lot #: [id number], Expiration: 08/10/2026) 225 mg/4.5 ml oral suspension po given per Capri Brown MD's orders. 1418 Pt. without signs or symptoms of allergic reaction. 1419 Vitals Obtained post challenge. 107/73 BP, 108 HR, 16 RR, 98 SpO2, 36.8 T Pt. seen by Capri Brown MD prior to leaving the office. Montserrat Valdez RN * Capri Brown MD - 03/02/2025 10:30 AM EDT Images from the original note were not [...] on her legs. She currently uses loratadine asneeded for allergies. López has a history of tachycardia, with heart rates reaching 200 bpm. She has been on mg BID since age 18, which she [...] being able to re-introduce the drug if neededin the future. The risks include the patient developing an allergic (IgE/Anaphylaxis) delayed allergic or non- allergic reaction to the food. Symptoms of an [...] = 0 mm PENICILLIN GK 10,000 UNITS/ML [facility]: 5447-9301-14 LOT: [id number] Exp: 10/08/2025 P: W = 0 mm F = 0 mm ID: W = 0 mm F = 0 mm PREPEN -(benzylpenicilloyl polylysine) full strength [facility]: 05084-289-24 LOT: [id number] Exp: 09/10/2025 P: W = 0 mm F = 0 mm ID: W = 0 mm F = 0 mm AMPICILLIN SODIUM 12.5mg/ml [facility]: 7213-2275-97 LOT: [id number] Exp: 01/08/2027 P: W = 0 mm F = 0 mm ID: W = 0 mm F = 0 mm HISTAMINE- positive control (Histamine base 6mg/ml)for Prick and 0.1 mg/ml for intradermal P: W = 3mm F = 9 mm Hydrocortisone cream applied per patients request and orders. Amoxicillin Oral Challenge Amoxicillin obtained from [employer] 1115 Informed consent for Amoxicillin oral challenge obtained by Capri Brown MD 1230 patient given jesús crackers prior to starting direct oral challenge 1244 Amoxicillin (Hydraulic Press Tender: [employer], [facility]: 3267-2329-22 , Lot #: [id number], Expiration: 08/10/2026) 25 mg/0.5 ml oral suspension po given per Capri Brown MD's orders. 1314 Patient without signs of symptoms of allergic reaction. 1318 Amoxicillin (Hydraulic Press Tender: [employer], [facility]: 1218-5768-37 , Lot #: [id number], Expiration: 08/10/2026) 225 mg/4.5 ml oral suspension [...] arise. Capri Brown MD Allergy and Immunology [facility] documented in this encounterWvumedicine [facility]07-23-2025 NoteHNO ID: [id number] Author: CAPRI BROWN MD Service: ? Author [...] = 0 mm PENICILLIN GK 10,000 UNITS/ML [place]: 4868-4572-03 LOT: [id number] Exp: 10/08/2025 P: W = 0 mm F = 0 mm ID: W = 0 mm F = 0 mm PREPEN -(benzylpenicilloyl polylysine) full strength ND: 75375-332-70 LOT: [id number] Exp: 09/10/2025 P: W = 0 mm F = 0 mm ID: W = 0 mm F = 0 mm AMPICILLIN SODIUM 12.5mg/ml [facility]: 1903-6304-08 LOT: [id number] Exp: 01/08/2027 P: W = 0 mm F = 0 mm ID: W = 0 mm F = 0 mm HISTAMINE- positive control (Histamine base 6mg/ml (more content not included)...[facility]07-21-2025 Telephone encounter Note* Telephone Encounter - Lizeth Patel RN - 02/28/2025 8:33 AM EDT 3rd risk assessment form submitted 02/28/2025. Lizeth Patel RN [facility]07-21-2025 Miscellaneous Notes* Telephone Encounter - Lizeth Patel RN - 02/28/2025 8:33 AM EDT 3rd risk assessment form submitted 02/28/2025. Lizeth Patel RN documented in this encounterWvumedicine [facility]07-18-2025 Progress note* Quick Notes - Lizeth Tate MD - 02/25/2025 3:41 PM EDT S: López Bravo is a 24 year old female who presents at 03/29/2025, by Last Menstrual Period fora routine visit. Denies headache, visual changes, chest [...] Supervision of high risk in third trimester ([facility]) - ICD9: V23.9, ICD10: O09.93 (primary diagnosis) - URINE OB DIP B/O 2. Diet controlled gestational diabetes mellitus (GDM) in third trimester ([facility]) - ICD9: 648.83, ICD10: O24.410 - URINE OB DIP B/O 3. Hypothyroidism, unspecified type - ICD9: 244.9, ICD10: E03.9 - URINE OB DIP B/O 4. Penicillin allergy - ICD9: V14.0, ICD10: Z88.0 Allergy testing to be completed next week - URINE OB DIP B/O 5. 35 weeks gestation of ([facility]) - ICD9: V22.2, ICD10: Z3A.35 - URINE OB DIP B/O Lizeth Ttae MD [facility]07-18-2025 Miscellaneous Notes* Quick Notes - Lizeth Tate MD - 02/25/2025 3:41 PM EDT S: López Bravo is a 24 year old female who presents at 03/29/2025, by Last Menstrual Period fora routine visit. Denies headache, visual changes, chest [...] Supervision of high risk in third trimester ([facility]) - ICD9: V23.9, ICD10: O09.93 (primary diagnosis) - URINE OB DIP B/O 2. Diet controlled gestational diabetes mellitus (GDM) in third trimester ([facility]) - ICD9: 648.83, ICD10: O24.410 - URINE OB DIP B/O 3. Hypothyroidism, unspecified type - ICD9: 244.9, ICD10: E03.9 - URINE OB DIP B/O 4. Penicillin allergy - ICD9: V14.0, ICD10: Z88.0 Allergy testing to be completed next week - URINE OB DIP B/O 5. 35 weeks gestation of ([facility]) - ICD9: V22.2, ICD10: Z3A.35 - URINE OB DIP B/O Lizeth Tate MD documented in this encounterWvumedicine [facility]07-18-2025 Instructions* Patient Instructions* Nicole Villeda MA - 02/25/2025 2:50 PM EDT SEQUENTIAL SCREENINGS The [facility] offers sequential screenings for women who are interested in screenings for chromosomal abnormalities and certain defects during a . The sequential screen combinesultrasound and blood tests to determine the risk [...] this testing. It will require an appointment withour computer system technician. This is not an ultrasound performed [...] the above symptoms, contact our office at [phone] and ask to speak with anurse. After hours, you can call doctors registry at [phone] OR call [facility] at [phone] ask to have the doctor rn radiation paged. If you consider this an emergency, dial 9-5 or go to your nearest emergency department. NEED HELP? Are you dealing with a violent or abusive relationship? Are you a victim of rape or sexual assult? Call [facility] ([place]) 24 hour Crisis Hotline: 860.546.5794 or 419-050-3484. MANUAL Your Guide to a Healthy manual is now on-line. Visit [email or web address] to download your free copy documented in this encounterWvumedicine [facility]07-14-2025 Instructions* Patient Instructions* Kalee More RD - 02/21/2025 11:50 AM [...] available if meals are not appropriate. Call ([phone]). To schedule follow up nutrition visit for ~3 weeks documented in this encounterWvumedicine [facility]07-14-2025 NoteHNO ID: [id number] Author: KALEE MORE RD Service: ? Author Type: Registered Dietitian Type: Progress Notes Filed: 02/21/2025 11:55 Note Text: 9:32 AM The [facility] Nutrition Therapy: Virtual Consult - Initial Assessment I have communicated my name and active licensure. The patient?s identity and physical location were verified at the time of this visit. Either the patient or their legal commercial representative has been informed of the risks [...] available if meals are not appropriate. Call ([phone]). To schedule follow up nutrition visit for [...] sandwich; salad; eggs; chicken sandwich; pasta; burger; [place] flakes/1% milk and fruit; pancakes water Snack [...] the Last Year: Never true Supplemented with [facility] Education Materials Provided: Healthy You - and Healthy Lunch/Dinner Plate READINESS TO LEARN Cognitive ability: Alert and oriented Motivation to learn: Interested Family support: Unable to assess - Family not present Instruction provided to: Patient Patient learns best by: Individual Instruction Factors affecting learning: None Physical limitations affecting learning: None Referred by: Yi MNT Billing Type: Initial Assess 3 units (more content not included)...[facility]07-14-2025 History of Present illness Narrative* Kalee More, RD - 02/21/2025 9:32 AM EDT 9:32 AM [facility] Nutrition Therapy: Virtual Consult - Initial Assessment I have communicated my name and active licensure. The patient s identity and physical location wereverified at the time of this visit. Either the patient or their legal commercial representative has been informed of the risks and benefits of -- and alternatives to -- treatment through a remote evaluation andconsents to proceed with the evaluation remotely. Nutrition [...] available if meals are not appropriate. Call ([phone]). To schedule follow up nutrition visit for [...] sandwich; salad; eggs; chicken sandwich; pasta; burger; [place] flakes/1% milkand fruit; pancakes water Snack - granola bars; peanut butter cracker or cheese pkg; Dinner - 5-8 - casseroles, mashed/meat/veg; pasta; pizza; burgers; broccoli chicken and rice; shepards pie; iItal sausage, chicken finger with FF and cheese sauce post meal blood sugars 152; may havedessert : peach cobbler, fransisca food cake, ice [...] the Last Year: Never true Supplemented with WIC Education Materials Provided: Healthy You - and [...] 2025 TIME: 9:36 AM documented in this encounterWvumed[facility]06-26-[facility] Note Indication Evaluation of growth Limited care, [...] 0 oz EFW by: [place] (HC-AC-FL) Extended Operations/Dispatch 3.4 mm Extremities / Bony Struc FL [...] Ivy RDMS, RVT Read By: Devorah Washington M.D.MATERNAL [id number] Progress note* Quick Notes - Lizeth Tate MD - 02/02/2025 5:16 PM EDT S: López Bravo is a 24 year old female who presents at 03/29/2025, by Last Menstrual Period fora routine visit. Denies headache, visual changes, chest [...] Supervision of high risk in third trimester ([facility]) - ICD9: V23.9, ICD10: O09.93 (primary diagnosis) 2. Diet controlled gestational diabetes mellitus (GDM) in third trimester ([facility]) - ICD9: 648.83, ICD10: O24.410 Lizeth Tate MD [facility]06-25-2025 Miscellaneous Notes* Quick Notes - Lizeth Tate MD - 02/02/2025 5:16 PM EDT S: López Bravo is a 24 year old female who presents at 03/29/2025, by Last Menstrual Period fora routine visit. Denies headache, visual changes, chest [...] Supervision of high risk in third trimester ([facility]) - ICD9: V23.9, ICD10: O09.93 (primary diagnosis) 2. Diet controlled gestational diabetes mellitus (GDM) in third trimester ([facility]) - ICD9: 648.83, ICD10: O24.410 Lizeth Tate MD documented in this encounterWvumedicine [facility]06-25-2025 Instructions* Patient Instructions* Isabel Guzmán MA - 02/02/2025 3:03 PM EDT SEQUENTIAL SCREENINGS The [facility] offers sequential screenings for women who are interested in screenings for chromosomal abnormalities and certain defects during a . The sequential screen combinesultrasound and blood tests to determine the risk [...] this testing. It will require an appointment withour computer system technician. This is not an ultrasound performed [...] the above symptoms, contact our office at [phone] and ask to speak with anurse. After hours, you can call doctors registry at [phone] OR call [facility] at [phone] ask to have the doctor rn radiation paged. If you consider this an emergency, dial 9-1-1 or go to your nearest emergency department. NEED HELP? Are you dealing with a violent or abusive relationship? Are you a victim of rape or sexual assult? Call [facility] [place] [facility] 24 hour Crisis Hotline: 186.828.9309 or 724-284-1921. MANUAL Your Guide to a Healthy manual is now on-line. Visit [email or web address]/HealthyPregnancyGuide to download your free copy documented in this encounterWvumedicine [facility]06-18-[facility] Evaluation note* Diagnosis Onset Date Resolution Status Admit Date Inappropriate sinus tachycardia acut e January 26, 2025 2:36pm 39 weeks gestation of acut e March 26, 2025 9:25am Positive GBS test acute March 26, 2025 9:25am SROM (spontaneous rupture of membranes) acute March 26 9:25am (spontaneous vaginal delivery) acute March 26 9:25am [facility] Work Phone: 1(935) 396-613006-12-2025 Progress note* Quick Notes - Tia Jacobs, MINDY.APPLIANCE TECHNICIAN - 01/20/2025 3:27 PM EDT EH - S: López is a 24 year old female who presents at 30w2d for a routine visit. Feeling movement. Denies headache, visual changes, chest pain, shortness of breath, vaginal bleeding, leakage of fluid, or dysuria. Feeling well, no complaints. O: See flow sheet Gen: No apparent distress Abd: Gravid, nontender, S=D ASSESSMENT/PLAN: 1. Supervision of high risk in third trimester ([facility]) - ICD9: V23.9, ICD10: O09.93 (primary diagnosis) - Continue LDA and PNV 2. 30 weeks gestation of ([facility]) - ICD9: V22.2, ICD10: Z3A.30 Hypothyroidism, unspecified type - ICD9: 244.9, ICD10: E03.9 - Under care of endo Tachycardia - ICD9: 785.0, ICD10: R00.0 - Continues Metoprolol and following up with cardiology Penicillin allergy - ICD9: V14.0, ICD10: Z88.0 - Allergy clinic 03/02 UTI (urinary tract infection) in , antepartum ([facility]) - ICD9: 646.63, 599.0, ICD10: O23.40 - Third trimester rescreen today Diet controlled gestational diabetes mellitus (GDM) in third trimester ([facility]) - ICD9: 648.83, ICD10:O24.410 - Diagnosed yesterday - Supplies ordered. - [...] ICD10: O28.3 - See ultrasound report from [place]: cephalic index and femur length/head circumference ratios outside of expected ranges PTL precautions and kick counts reviewed. RTO in 2 weeks or sooner as needed. Tia Jacobs APRN.EVANS [facility]06-12-2025 Miscellaneous Notes* Quick Notes - Tia Jacobs APRN.CNP - 01/20/2025 3:27 PM EDT EH - S: López is a 24 year old female who presents at 30w2d for a routine visit. Feeling movement. Denies headache, visual changes, chest pain, shortness of breath, vaginal bleeding, leakage of fluid, or dysuria. Feeling well, no complaints. O: See flow sheet Gen: No apparent distress Abd: Gravid, nontender, S=D ASSESSMENT/PLAN: 1. Supervision of high risk in third trimester ([facility]) - ICD9: V23.9, ICD10: O09.93 (primary diagnosis) - Continue LDA and PNV 2. 30 weeks gestation of ([facility]) - ICD9: V22.2, ICD10: Z3A.30 Hypothyroidism, unspecified type - ICD9: 244.9, ICD10: E03.9 - Under care of endo Tachycardia - ICD9: 785.0, ICD10: R00.0 - Continues Metoprolol and following up with cardiology Penicillin allergy - ICD9: V14.0, ICD10: Z88.0 - Allergy clinic 03/02 UTI (urinary tract infection) in , antepartum ([facility]) - ICD9: 646.63, 599.0, ICD10: O23.40 - Third trimester rescreen today Diet controlled gestational diabetes mellitus (GDM) in third trimester ([facility]) - ICD9: 648.83, ICD10:O24.410 - Diagnosed yesterday - Supplies ordered. - [...] ICD10: O28.3 - See ultrasound report from [place]: cephalic index and femur length/head circumference ratios outside of expected ranges PTL precautions and kick counts reviewed. RTO in 2 weeks or sooner as needed. Tia Jacobs APRN.CNP documented in this encounterWvumedicine [facility]06-12-2025 Instructions* Patient Instructions* Kayla Esteban MA - 01/20/2025 3:21 PM EDT SEQUENTIAL SCREENINGS The [facility] offers sequential screenings for women who are interested in screenings for chromosomal abnormalities and certain defects during a . The sequential screen combinesultrasound and blood tests to determine the risk [...] this testing. It will require an appointment withour computer system technician. This is not an ultrasound performed [...] the above symptoms, contact our office at [phone] and ask to speak with anurse. After hours, you can call doctors registry at [phone] OR call [facility] at [phone] ask to have the doctor rn radiation paged. If you consider this an emergency, dial 9-1-1 or go to your nearest emergency department. NEED HELP? Are you dealing with a violent or abusive relationship? Are you a victim of rape or sexual assult? Call [facility] 24 hour Crisis Hotline: 885.284.2888 or 837-283-6104. MANUAL Your Guide to a Healthy manual is now on-line. Visit [facility]/HealthyPregnancyGuide to download your free copy SEQUENTIAL SCREENINGS The [facility] offers sequential screenings for women who are interested in screenings for chromosomal abnormalities and certain defects during a . The sequential screen combinesultrasound and blood tests to determine the risk [...] this testing. It will require an appointment withour computer system technician. This is not an ultrasound performed [...] the above symptoms, contact our office at [phone] and ask to speak with anurse. After hours, you can call doctors registry at [phone] OR call [facility] at [phone] ask to have the doctor rn radiation paged. If you consider this an emergency, dial 9-1-1 or go to your nearest emergency department. NEED HELP? Are you dealing with a violent or abusive relationship? Are you a victim of rape or sexual assult? Call [facility] 24 hour Crisis Hotline: 629.747.6601 or 527-178-6884. MANUAL Your Guide to a Healthy manual is now on-line. Visit [facility]/Fast DrinksPreBringrrancyGuide to download your free copy documented in this encounterWvumedicine [facility]06-11-2025 NoteHNO ID: [id number] Author: EMMA PADGETT MD Service: ? Author [...] visit. Either the patient or their legal commercial representative has been informed of the risks and benefits of -- and alternatives to -- treatment through a remote evaluation and consents to proceed with the evaluation remotely. Recording using ambient [employer] software for draft documentation of the visit was discussed with the patient/authorized commercial representative; all questions welcomed and answered. Patient/authorized commercial representative agreed to proceed CONSULTING PROVIDER: Lidia [...] about 1.5 years while she was in [place]. TFTs checked at that time were normal [...] disturbance, mood disorder and recent psychosocial stressors. HEMATOLOGIC/LYMPHATIC/IMMUNOLOGIC:Negative for prolonged bleeding, bruising easily ENDOCRINE: Negative [...] HISTORY Procedure Laterality Date HEMATOMA EVACUATION 2002 [facility] FAMILY HISTORY: FAMILY HISTORY Problem Relation Age of Onset Blood Disease Mother mtfhr Thyroid Mother Diabetes Father type 2 other (asd) Sister arterial spectrum defect Fibromyalgia Maternal Grandmother Coronary Artery Disease Maternal Grandmother other (htn) Maternal Grandmother other (mtfhr) Maternal Grandmother Stroke Maternal Grandfather Hea (more content not included)...[facility]06-11[facility]2025 History of Present illness Narrative* Emma Padgett MD - 01/19/2025 7:58 AM EDT [facility] Initial Clinic Visit Note Virtual Visit (Audio/Visual)I have discussed the nature of this visit with the patient which will occur via [facility] [employer] (Phone, Virtual Visit) and she agrees to proceed with this interaction. I have communicated my name and active licensure. The patient's identity and physical location wereverified at the time of this visit. Either the patient or their legal commercial representative has been informed of the risks and benefits of -- and alternatives to -- treatment through a remote evaluation andconsents to proceed with the evaluation remotely. Recording using ambient [employer] software for draft documentation of the visit was discussed with the patient/authorized commercial representative; all questions welcomed and answered. Patient/authorized commercial representative agreed to proceed CONSULTING PROVIDER: Lidia [...] about 1.5 years while she was in [place]. TFTs checked at that time were normal reportedly She she moved here, her thyroid labs were checked in 08/2024 as mentioned TSH 08/31/24: 0.075 Free T4 1.67 Has a family history of thyroid disease in mother and is worried Her mother was by her side during the conversation and keeps asking patient to let me know that shehas thyroid problems Currently has no concerning symptoms [...] disturbance, mood disorder and recent psychosocial stressors. HEMATOLOGIC/LYMPHATIC/IMMUNOLOGIC:Negative for prolonged bleeding, bruising easily ENDOCRINE: Negative [...] HISTORY Procedure Laterality Date HEMATOMA EVACUATION 2002 [facility] FAMILY HISTORY: FAMILY HISTORY Problem Relation Age [...] for Thyroid Function tests in . Thyroid, 2019:29:3:412-420.William Campos et al. 2017 Guidelines of the [place] Thyroid Association for the Diagnosis and Management [...] And the pain she mentioned is less likelythyroid related as the location is not thyroid bed and prolonged pain for more than one year is notseen with thyroiditis either - I reviewed she [...] Moderate Emma Padgett MD [facility] Endocrinology and Metabolism [place] [phone] documented in this encounterWvumedicine [facility]06-10-2025 Telephone encounter Note * Telephone Encounter - Lizeth Gleason RN - 01/18/2025 4:46 PM EDT Appt note made for 01/20/25 if patient does not view Mychart message. Needs to schedule appointments. Lizeth Gleason RN [facility]06-10-2025 Miscellaneous Notes* Telephone Encounter - Lizeth Gleason RN - 01/18/2025 4:46 PM EDT Appt note made for 01/20/25 if patient does not view Mychart message. Needs to schedule appointments. Lizeth Gleason RN * Telephone Encounter - Carolyn Richmond APRN.CNM - 01/18/2025 4:37 PM EDT Orders signed. Please assist with scheduling growth US. Carolyn Richmond APRN.CNM * Telephone Encounter - Lizeth Gleason RN - 01/18/2025 9:19 AM EDT Received 3 hour glucose results from [place]. 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 Patient sees [facility] for hypothyroidism. Mychart message sent to patient. Lizeth Gleason RN Scan on 01/18/2025 9:02 AM by Provider, External, CYRUS: 3 hour glucose documented in this encounterWvumedicine [facility]06-10-2025 Telephone encounter Note * Telephone Encounter - Carolyn Richmond APRN.CNM - 01/18/2025 4:37 PM EDT Orders signed. Please assist with scheduling growth US. Carolyn Richmond APRN.CNM [facility]06-10-2025 Telephone encounter Note* Telephone Encounter - Lizeth Gleason RN - 01/18/2025 9:19 AM EDT Received 3 hour glucose results from [place]. 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 Patient sees Endo for hypothyroidism. [employer] message sent to patient. Lizeth Gleason RN Scan on 01/18/2025 9:02 AM by Provider, ExternalCYRUS: 3 hour glucose [facility]05-27-2025 Progress note* Quick Notes - Lizeth Tate MD - 01/04/2025 4:46 PM EDT S: López Bravo is a 24 year old female who presents at 03/29/2025, by Last Menstrual Period fora routine visit. Denies headache, visual changes, chest [...] (primary diagnosis) 2. 28 weeks gestation of ([facility]) - ICD9: V22.2, ICD10: Z3A.28 PTL precautions Lizeth Tate MD [facility]05-27-2025 Miscellaneous Notes* Quick Notes - Lizeth Tate MD - 01/04/2025 4:46 PM EDT S: López Bravo is a 24 year old female who presents at 03/29/2025, by Last Menstrual Period fora routine visit. Denies headache, visual changes, chest pain, shortness of breath, vaginal bleeding, leakage of fluid, or dysuria. Feeling well, no complaints. Good movement, No contractions Heartburn still bothersome but better O: See flow sheet Gen: No apparent distress Abd: Gravid, nontender Declined TDAP Declined LARC GCT today ASSESSMENT/PLAN: 1. Supervision of high risk in third trimester ([facility]) - ICD9: V23.9, ICD10: O09.93 (primary diagnosis) 2. 28 weeks gestation of ([facility]) - ICD9: V22.2, ICD10: Z3A.28 PTL precautions Lizeth Tate MD documented in this encounterWvumedicine [facility]05-27-2025 Instructions* Patient Instructions* Isabel Guzmán MA - 01/04/2025 1:27 PM EDT SEQUENTIAL SCREENINGS The [facility] offers sequential screenings for women who are interested in screenings for chromosomal abnormalities and certain defects during a . The sequential screen combinesultrasound and blood tests to determine the risk [...] this testing. It will require an appointment withour computer system technician. This is not an ultrasound performed [...] the above symptoms, contact our office at [phone] and ask to speak with anurse. After hours, you can call doctors registry at [phone] OR call [facility] at [phone] ask to have the doctor rn radiation paged. If you consider this an emergency, dial 6--0 or go to your nearest emergency department. NEED HELP? Are you dealing with a violent or abusive relationship? Are you a victim of rape or sexual assult? Call [facility] ([place]) 24 hour Crisis Hotline: 780.211.8663 or 913-514-8760. MANUAL Your Guide to a Healthy manual is now on-line. Visit [email or web address]/HealthyPregnancyGuide to download your free copy documented in this encounterWvumedicine [facility]05-15-2025 History of Present illness Narrative* Capri Brown MD - 12/23/2024 9:00 AM EDT Images from the original note were not included. Allergy and Immunology I have communicated my name and active licensure. The patient's identity and physical location wereverified at the time of this visit. Either the patient or their legal commercial representative has been informed of the risks [...] on her legs. She currently uses loratadine asneeded for allergies. López has a history of tachycardia, with heart rates reaching 200 bpm. She has been on ivmmjegoug45 mg BID since age 18, which she [...] testing and if negative, graded oral challenge toamoxicillin. Scheduled penicillin allergy testing for March 02 at 10:30 AM in [place]. Instructed to withhold loratadine and other antihistamines [...] arise. Capri Brown MD Allergy and Immunology [facility] Recording using [employer] software for draft documentation of the visit was discussed with the patient/authorized commercial representative; all questions welcomed and answered. Patient/authorized commercial representative agreed to proceed I spent a total of 30 minutes on the date of the service which included preparing to see the patient, [id number] patient care, completing clinical documentation, obtaining and/or reviewing separately obtained history, performing a medically appropriate examination, counseling and educating the pat ient/family/caregiver, ordering medications, tests, or procedures, independently interpreting results (not separately reported), and communicating results to the patient/family/caregiver. documented in this encounterWvumedicine [facility]05-15-2025 NoteHNO ID: [id number] Author: CAPRI BROWN MD Service: ? Author Type: Physician Type: Progress Notes Filed: 12/23/2024 12:33 Note Text: Allergy and Immunology I have communicated my name and active licensure. The patient's identity and physical location were verified at the time of this visit. Either the patient or their legal commercial representative has been informed of the risks [...] for March 02 at 10:30 AM in [place]. Instructed to withhold loratadine and other antihistamines [...] arise. Capri Brown MD Allergy and Immunology [facility] Recording using Software 2000 software for draft documentation of the visit was discussed with the patient/authorized commercial representative; all questions welcomed and answered. Patient/authorized commercial representative agreed to proceed I spent a total of 30 minutes on the date of the service which included preparing to see the patient, [id number] patient care, completing clinical documentation, obtaining and/or reviewing separately obtained history, performing a medically appropriate examination, counseling an (more content not included)...[facility]05[facility]13[facility] Progress note* Result Encounter Note - Albert Swift MD - 12/21/2024 10:14 AM EDT Anatomy ultrasound reviewed. No abnormalities identified. Follow up as clinically indicated. Pleaseplace copy in ob chart. Albert Swift MD [facility]05-13-2025 Miscellaneous Notes* Result Encounter Note - Albert Swift MD - 12/21/2024 10:14 AM EDT Anatomy ultrasound reviewed. No abnormalities identified. Follow up as clinically indicated. Pleaseplace copy in ob chart. Albert Swift MD documented in this encounterWvumedicine [facility]05-12-2025 Progress note* Quick Notes - Carolyn Richmond APRN.CNM - 12/20/2024 2:55 PM EDT S: López Bravo is a 24 year old female who presents at 25 weeks gestation for a routine visit.Not seen in office since 16 weeks gestation due to transportation issues. Currently getting transportation from [facility]. Positive feta movements. Denies headache, visual [...] Tachycardia 6. Penicillin allergy - Consult to [facility] allergy clinic for testing - Patient of Cardiology at [place]- Continue metoprolol 100 mg PO daily - Continue ASA - Continue vitamin - Stressed importance of coming to all visits - PTL precautions and when to call office - RTO 3 weeks for LUIS with GCT Carolyn Richmond APRN.CNM [facility]05-12-2025 Miscellaneous Notes* Quick Notes - Carolyn Richmond APRN.CNM - 12/20/2024 2:55 PM EDT S: López Bravo is a 24 year old female who presents at 25 weeks gestation for a routine visit.Not seen in office since 16 weeks gestation due to transportation issues. Currently getting transportation from [facility]. Positive feta movements. Denies headache, visual [...] Tachycardia 6. Penicillin allergy - Consult to [facility] allergy clinic for testing - Patient of Cardiology at [place]- Continue metoprolol 100 mg PO daily - Continue ASA - Continue vitamin - Stressed importance of coming to all visits - PTL precautions and when to call office - RTO 3 weeks for LUIS with GCT Carolyn Richmond APRN.CNM documented in this encounterWvumedicine [facility]05-12-2025 Instructions* Patient Instructions* Deb Weiss MA - 12/20/2024 2:45 PM EDT SEQUENTIAL SCREENINGS The [facility] offers sequential screenings for women who are interested in screenings for chromosomal abnormalities and certain defects during a . The sequential screen combinesultrasound and blood tests to determine the risk [...] this testing. It will require an appointment withour computer system technician. This is not an ultrasound performed [...] the above symptoms, contact our office at [phone] and ask to speak with anurse. After hours, you can call doctors registry at [phone] OR call [facility] at [phone] ask to have the doctor rn radiation paged. If you consider this an emergency, dial 9--1 or go to your nearest emergency department. NEED HELP? Are you dealing with a violent or abusive relationship? Are you a victim of rape or sexual assult? Call [facility] ([place]) 24 hour Crisis Hotline: 417.684.7954 or 800-487-8697. MANUAL Your Guide to a Healthy manual is now on-line. Visit [email or web address]/[email or web address] to download your free copy documented in this encounterWvumedicine [facility]05-05-2025 Telephone encounter Note * Telephone Encounter - Val Liu RN - 12/13/2024 4:06 PM EDT Patient scheduled for growth u/s and OB visit on 12/20. Val Liu RN [facility]05-05-2025 Miscellaneous Notes* Telephone Encounter - Val Liu RN - 12/13/2024 4:06 PM EDT Patient scheduled for growth u/s and OB visit on 12/20. Val Liu RN * Telephone Encounter - Lidia Raza APRN.CNM - 12/13/2024 12:27 PM EDT Thank you. Please assist patient in getting an appointment and then she can schedule transportationafter discussing with medicaid. Thank you, Lidia Raza APRN.CNM * Telephone Encounter - Rich Murphy MSW - 12/13/2024 11:54 AM EDT See Sw 12/09 note regarding Sw response to below message. * Telephone Encounter - Pina Perea RN - 12/08/2024 4:30 PM EDT Spoke with patient and states she was still planning on continuing care here at [place]. Patient states she has problems with transportation because her mom boyfriend is the only one with a car and he works [employer]. Patient states she also gets sick on the car ride. Discussed with patient possibly getting care in [place] at [employer] office there at it is closer or getting in touch with social work here to help with transportation issues to office. After lengthy discussion with patient andpatients mother they would like to speak with social work to see what kind of options are availableto help with transportation before making a decision. Discussed with patient that she has not been seen for 8 weeks and that appointments will need to be occurring more frequently the farther along in . Does consult need to be placed? Will route message to GILBERT Mercedes as well. Pina Perea RN * Telephone Encounter - Lidia Raza APRN.CNM - 12/08/2024 4:10 PM EDT Did patient transfer care? No office visit since 16 weeks. Can you please assist in scheduling soonest appointment this week or find out if she transferred. Would recommend repeat growth US in our office. Measuring behind and recommend follow up US. Lidia Raza APRN.CNM documented in this encounterW[facility] Telephone encounter Note * Telephone Encounter - Lidia Raza APRN.CNM - 12/13/2024 12:27 PM EDT Thank you. Please assist patient in getting an appointment and then she can schedule transportationafter discussing with medicaid. Thank you, Lidia Raza APRN.CNM [facility]05-05-2025 Telephone encounter Note* Telephone Encounter - Rich Murphy MSW - 12/13/2024 11:54 AM EDT See Sw / note regarding Sw response to below message. [facility]04-30-2025 Telephone encounter Note* Telephone Encounter - Pina Perea RN - 12/08/2024 4:30 PM EDT Spoke with patient and states she was still planning on continuing care here at [place]. Patient states she has problems with transportation because her mom boyfriend is the only one with a car and he works [employer]. Patient states she also gets sick on the car ride. Discussed with patient possibly getting care in [place] at [employer] office there at it is closer or getting in touch with social work here to help with transportation issues to office. After lengthy discussion with patient andpatients mother they would like to speak with social work to see what kind of options are availableto help with transportation before making a decision. Discussed with patient that she has not been seen for 8 weeks and that appointments will need to be occurring more frequently the farther along in . Does consult need to be placed? Will route message to GILBERT Mercedes as well. Pina Perea RN [facility]04-30-2025 Telephone encounter Note* Telephone Encounter - Lidia Raza APRN.CNM - 12/08/2024 4:10 PM EDT Did patient transfer care? No office visit since 16 weeks. Can you please assist in scheduling soonest appointment this week or find out if she transferred. Would recommend repeat growth US in our office. Measuring behind and recommend follow up US. Lidia Raaz APRN.CNM [facility]04-22-2025 Telephone encounter Note* Telephone Encounter - Lillian Avilez RN - 11/30/2024 2:18 PM EDT Pt's mother notified and stated she did have Pt try a popsicle. Voiced understanding. Lillian Avilez RN [facility]04-22-2025 Miscellaneous Notes* Telephone Encounter - Lillian Avilez RN - 11/30/2024 2:18 PM EDT Pt's mother notified and stated she did have Pt try a popsicle. Voiced understanding. Lillian Avilez RN * Telephone Encounter - Stefanie Campbell MD - 11/30/2024 11:30 AM EDT If signs of dehydration then recommend going to ED. Stefanie Campbell MD * Telephone Encounter - Lizeth Gleason RN - 11/30/2024 10:19 AM EDT 23w0d Patient's mother called and then placed [...] foods gradually as tolerated. Aware she is overdue for OB visit. Mother states they have transportation issues. In the past patient has declined social work contacting her with assistance in finding transportation. Last seen 10/14/24 for 16 week visit. Had anatomy at [place]. Please advise. Please call mother's phone as patient is going to try and get some rest. [phone] Lizeth Gleason RN documented in this encounterWvumedicine [facility]04-22-2025 Telephone encounter Note * Telephone Encounter - Stefanie Campbell MD - 11/30/2024 11:30 AM EDT If signs of dehydration then recommend going to ED. Stefanie Campbell MD [facility]04-22-2025 Telephone encounter Note* Telephone Encounter - Lizeth Gleason RN - 11/30/2024 10:19 AM EDT 23w0d Patient's mother called and then placed [...] foods gradually as tolerated. Aware she is overdue for OB visit. Mother states they have transportation issues. In the past patient has declined social work contacting her with assistance in finding transportation. Last seen 10/14/24 for 16 week visit. Had anatomy at [place]. Please advise. Please call mother's phone as patient is going to try and get some rest. [phone] Lizeth Gleason RN [facility]04-18-2025 NoteHNO ID: [id number] Author: LIZETH GLEASON RN Service: ? Author Type: Registered Nurse Type: Progress Notes Filed: 11/26/2024 08:12 Note Text: Received anatomy scan report from [place]. [facility] Scan on 11/25/2024 5:10 PM by Provider, External, PAKeeganC: [facility] History of Present illness Narrative* Lizeth Gleason RN - 11/26/2024 8:10 AM EDT Received anatomy scan report from [place]. Copy sent to L&D. Scan on 11/25/2024 5:10 PM by Provider, CYRUS Ureña: Anatomy documented in this encounterWvumedicine [facility]04-08-2025 Telephone encounter Note * Telephone Encounter - Isis Morse LPN - 11/16/2024 4:41 PM EDT Order faxed [facility]04-08-2025 Miscellaneous Notes* Telephone Encounter - Isis Morse LPN - 11/16/2024 4:41 PM EDT Order faxed * Telephone Encounter - Lizeth Gleason RN - 11/16/2024 8:46 AM EDT 21w0d Patient would like to have her anatomy US at [place]. Please file pending order. The ones we have on file are for 12-13 weeks. Thank you. We will then fax it for patient. Lizeth Gleason RN documented in this encounterWvumedicine [facility]04-08-2025 Telephone encounter Note * Telephone Encounter - Lizeth Gleason RN - 11/16/2024 8:53 AM EDT Patient sent [employer] message with [facility]'s fax number. Lizeth Gleason RN [facility]04-08-2025 Miscellaneous Notes* Telephone Encounter - Lizeth Gleason RN - 11/16/2024 8:53 AM EDT Patient sent [employer] message with [facility]'s fax number. Lizeth Gleason RN * Telephone Encounter - Lizeth Gleason RN - 11/15/2024 4:42 PM EDT 20w6d Patient's anatomy US on 11/23 was only scheduled for 30 min. Our next 60 min opening is 11/30/24. Patient may want to have her anatomy at [place] if they have a sooner visit. If so, she will send us a [employer] message with their fax number. Otherwise she will schedule in our office. Patient lives an hour away and has transportation issues. Advised that we could direct to our manager social responsibility for transportation resources. Patient states her mom's friend offered to drive her. Lizeth Gleason RN documented in this encounterWvumedicine [facility]04-08-2025 Telephone encounter Note * Telephone Encounter - Lizeth Gleason RN - 11/16/2024 8:46 AM EDT 21w0d Patient would like to have her anatomy US at [place]. Please file pending order. The ones we have on file are for 12-13 weeks. Thank you. We will then fax it for patient. Lizeth Gleason RN [facility]04-07-2025 Telephone encounter Note* Telephone Encounter - Lizeth Gleason RN - 11/15/2024 4:42 PM EDT 20w6d Patient's anatomy US on 11/23 was only scheduled for 30 min. Our next 60 min opening is 11/30/24. Patient may want to have her anatomy at [place] if they have a sooner visit. If so, she will send us a [employer] message with their fax number. Otherwise she will schedule in our office. Patient lives an hour away and has transportation issues. Advised that we could direct to our manager social responsibility for transportation resources. Patient states her mom's friend offered to drive her. Lizeth Gleason, RN [facility]03-10-2025 Telephone encounter Note* Telephone Encounter - Lidia Raza APRN.CNM - 10/18/2024 1:30 PM EDT I am sorry but I am unable to write her off of work. This would need to come from cardiology but not seen in his last note for a recommendation. She has no other medical concerns that would cause herto not be able to work at this time. If desires, can discuss further at a visit. Thank you, JONAH Flores [facility]03-10-2025 Miscellaneous Notes* Telephone Encounter - Lidia Raza APRN.CNM - 10/18/2024 1:30 PM EDT I am sorry but I am unable to write her off of work. This would need to come from cardiology but not seen in his last note for a recommendation. She has no other medical concerns that would cause herto not be able to work at this time. If desires, can discuss further at a visit. Thank you, JONAH Flores * Telephone Encounter - Val Liu RN - 10/18/2024 12:00 PM EDT 16w6d Patient's mother calling for patient. States patient is requesting letter stating that she is unable to work d/t cardiac history and . She has been so exhausted and sleeping constantly that she has not been working, does not have a job. 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 She did not discuss this at visit last week. Next visit is 11/10/24. Val Liu RN documented in this encounterWvumedicine [facility]03-10-2025 Telephone encounter Note * Telephone Encounter - Val Liu RN - 10/18/2024 12:00 PM EDT 16w6d Patient's mother calling for patient. [facility] patient is requesting letter stating that she is unable to work d/t cardiac history and . She has been so exhausted and sleeping constantly that she has not been working, does not have a job. 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 She did not discuss this at visit last week. Next visit is 11/10/24. Val Liu RN [facility]03-07-2025 Telephone encounter Note* Telephone Encounter - Stefanie Campbell MD - 10/15/2024 3:57 PM EST Noted. Thanks! Stefanie Campbell MD [facility]03-07-2025 Miscellaneous Notes* Telephone Encounter - Stefanie Campbell MD - 10/15/2024 3:57 PM EST Noted. Thanks! Stefanie Campbell MD * Telephone Encounter - Pina Perea RN - 10/15/2024 3:18 PM EST Patient called back and states she is currently taking Metoprolol 50 mg BID. Patient states she is scheduled for her echocardiogram on 10/27 at [facility]. Pina Perea RN * Telephone Encounter - Pina Perea RN - 10/15/2024 12:37 PM EST Attempted to contact patient but no answer and unable to leave a message as voicemail box is full. MyChart message sent. Pina Perea RN * Telephone Encounter - Pina Perea RN - 10/15/2024 12:30 PM EST Please call patient and confirm her metoprolol dose. Also recommended an echo. Is she getting that at [facility] or can I order it at [facility]? Thanks! Stefanie Campbell MD documented in this encounterWvumedicine [facility]03-07-2025 Telephone encounter Note * Telephone Encounter - Pina Perea RN - 10/15/2024 3:18 PM EST Patient called back and states she is currently taking Metoprolol 50 mg BID. Patient states she is scheduled for her echocardiogram on 10/27 at [facility]. Pina Perea RN [facility]03-07-2025 Telephone encounter Note* Telephone Encounter - Pina Perea RN - 10/15/2024 12:37 PM EST Attempted to contact patient but no answer and unable to leave a message as voicemail box is full. MyChart message sent. Pina Perea RN [facility]03-07-2025 Telephone encounter Note* Telephone Encounter - Pina Perea RN - 10/15/2024 12:30 PM EST Please call patient and confirm her metoprolol dose. Also recommended an echo. Is she getting that at [facility] or can I order it at [facility]? Thanks! Stefanie Campbell MD [facility]03-06-2025 Progress note* Quick Notes - Stefanie Campbell MD - 10/14/2024 2:26 PM EST KJ - S: López denies LOF, contractions or vaginal bleeding. O: 16w2d, see flow sheet SENSITIVE EXAM: Sensitive exam not performed. 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 She is on metoprolol 50mg bid. Also maternal echo recommended. Patient aware of risks or metoprolol in . Anatomy US scheduled Stefanie Campbell MD [facility]03-06-2025 Miscellaneous Notes* Quick Notes - Stefanie Campbell MD - 10/14/2024 2:26 PM EST KJ - S: López denies LOF, contractions or vaginal bleeding. O: 16w2d, see flow sheet SENSITIVE EXAM: Sensitive exam not performed. 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 She is on metoprolol 50mg bid. Also maternal echo recommended. Patient aware of risks or metoprolol in . Anatomy US scheduled Stefanie Campbell MD documented in this encounterWvumedicine [facility]03-06-2025 Instructions* Patient Instructions* Deb Weiss MA - 10/14/2024 1:41 PM EST SEQUENTIAL SCREENINGS The [facility] offers sequential screenings for women who are interested in screenings for chromosomal abnormalities and certain defects during a . The sequential screen combinesultrasound and blood tests to determine the risk [...] this testing. It will require an appointment withour computer system technician. This is not an ultrasound performed [...] the above symptoms, contact our office at [phone] and ask to speak with anurse. After hours, you can call doctors registry at [phone] OR call [facility] at [phone] ask to have the doctor rn radiation paged. If you consider this an emergency, dial 4-7-7 or go to your nearest emergency department. NEED HELP? Are you dealing with a violent or abusive relationship? Are you a victim of rape or sexual assult? Call [facility] ([place]) 24 hour Crisis Hotline: 268.509.4436 or 539-304-2905. MANUAL Your Guide to a Healthy manual is now on-line. Visit [email or web address] to download your free copy documented in this encounterWvumedicine [facility]02-26-2025 Telephone encounter Note * Telephone Encounter - Isis Morse LPN - 10/06/2024 4:38 PM EST Patient notified and was told to get labs drawn at [facility]02-26-2025 Miscellaneous Notes* Telephone Encounter - Isis Morse LPN - 10/06/2024 4:38 PM EST Patient notified and was told to get labs drawn at [facility] * Telephone Encounter - Lidia Raza APRN.CNM - 10/06/2024 4:27 PM EST The patient was supposed to get a first trimester early anatomy Ultrasound/NST. At her visit we discussed getting US within 1-2 wks of her visit. She is past this at this time and would recommend just waiting till 19-20 weeks for formal US. Lidia Raza APRN.CNM * Telephone Encounter - Isis Morse LPN - 10/06/2024 4:19 PM EST Ob patient is 15w1d and called stating that she is scheduled for an ultrasound tomorrow at [facility]. Patient thought the order was for an anatomy ultrasound. Is this an early anatomy ultrasound? Patient cancelled nuchal ultrasound on 09/27/2024 that was scheduled here [facility]. Please advise if patient should cancel ultrasoundfor tomorrow? documented in this encounterWvumedicine [facility]02-26-2025 Telephone encounter Note * Telephone Encounter - Lidia Raza APRN.CNM - 10/06/2024 4:27 PM EST The patient was supposed to get a first trimester early anatomy Ultrasound/NST. At her visit we discussed getting US within 1-2 wks of her visit. She is past this at this time and would recommend just waiting till 19-20 weeks for formal US. Lidia Raza APRN.CNM [facility]02-26-2025 Telephone encounter Note* Telephone Encounter - Isis Morse LPN - 10/06/2024 4:19 PM EST Ob patient is 15w1d and called stating that she is scheduled for an ultrasound tomorrow at [facility]. Patient thought the order was for an anatomy ultrasound. Is this an early anatomy ultrasound? Patient cancelled nuchal ultrasound on 09/27/2024 that was scheduled here [facility]. Please advise if patient should cancel ultrasoundfor tomorrow? [facility]02-20-2025 Telephone encounter Note* Telephone Encounter - Pina Perea RN - 09/30/2024 3:49 PM EST Patient notified and voiced understanding. Lab order faxed to [facility]. Pina Perea RN [facility]02-20-2025 Miscellaneous Notes* Telephone Encounter - Pina Perea RN - 09/30/2024 3:49 PM EST Patient notified and voiced understanding. Lab order faxed to [facility]. Pina Perea RN * Telephone Encounter - Lillian Avilez RN - 09/29/2024 4:56 PM EST See Pt's mychart message on telephone note from 09/24/24. Please sign [id number] order as current order in chart-status is pending future. Once filed, will print and fax order to [facility] and contact Pt. Responded to Pt's SVXR message informing her BLADIMIR does not return to office until Friday. Lillian Avilez RN * Telephone Encounter - Lillian Avilez RN - 09/27/2024 11:05 AM EST Pt notified, lab and US orders faxed to [facility]. Pt does want [id number] and interested in knowing gender. Unsure if [facility] does this-Pt is going to call and check and will let office know. Pt also advised to call [facility] to get lab and US appt scheduled for this week and keep OBappt scheduled for 10/12/24. Pt voiced understanding. Lillian Avilez RN * Telephone Encounter - Lidia Raza APRN.CNM - 09/27/2024 9:17 AM EST It will not be a nuchal but early anatomy US. I would recommend here but if unable to get in the next week can get at [facility], fax order and recommend within the week. Will need appointment at 16 wk and does not need seen sooner. I was just seeing her after US for labs. She was supposed to get labs done day of US so will still need to complete those and also wanted to follow up her thyroid studies and if she wanted NIPT. Lidia Raza APRN.CNM * Telephone Encounter - Lillian Avilez RN - 09/27/2024 8:11 AM EST 13w6d Pt went to [facility] 09/24/24 as advised. US of abdomen completed. [...] d/t weather. Pt needs afternoon appointments and askingif Nuchal can be done at [facility]. Pt's next OB appt is currently scheduled 10/12/24. Do you want her scheduled next week, instead of 10/12/24? And is Nuchal able to be completed at ? Please advise. Lillian Avilez RN documented in this encounterWvumedicine [facility]02-19-2025 Telephone encounter Note * Telephone Encounter - Lillian Avilez RN - 09/29/2024 4:56 PM EST See Pt's Zw[employer] message on telephone note from 09/24/24. Please sign [id number] order as current order in chart-status is pending future. Once filed, [facility] print [facility]. Responded to Pt's Zwamyt message informing her BLADIMIR does not return to office until Friday. Lillian Avilez RN [facility]02-17-2025 Telephone encounter Note* Telephone Encounter - Lillian Avilez RN - 09/27/2024 11:05 AM EST Pt notified, lab and US orders faxed to [facility]. Pt does want [id number] and interested in knowing gender. Unsure if [facility] does this-Pt is going to call and check and will let office know. Pt also advised to call [facility] to get lab and US appt scheduled for this week and keep OBappt scheduled for 10/12/24. Pt voiced understanding. Lillian Avilez RN [facility]02-17-2025 Telephone encounter Note* Telephone Encounter - Lidia Raza APRN.CNM - 09/27/2024 9:17 AM EST It will not be a nuchal but early anatomy US. I would recommend here but if unable to get in the next week can get at [facility], fax order and recommend within the week. Will need appointment at 16 wk and does not need seen sooner. I was just seeing her after US for labs. She was supposed to get labs done day of US so will still need to complete those and also wanted to follow up her thyroid studies and if she wanted NIPT. Lidia Raza APRN.CNM [facility]02-17-2025 Telephone encounter Note* Telephone Encounter - Lillian Avilez RN - 09/27/2024 8:11 AM EST 13w6d Pt went to [facility] 09/24/24 as advised. US of abdomen completed. [...] d/t weather. Pt needs afternoon appointments and askingif Nuchal can be done at [facility]. Pt's next OB appt is currently scheduled 10/12/24. Do you want her scheduled next week, instead of 10/12/24? And is Nuchal able to be completed at ? Please advise. Lillian Avilez RN [facility]02-14-2025 NoteDischarge Instructions Discharge Summary [address] [place] [address] [id number] 09/24/2024 Patient: LÓPEZ BRAVO Sex: Female : 2000 Age: 24y Thank you for visiting [facility]. You have been evaluated today by Nicolasa Liu D.O. for the following condition(s): Principal Diagnosis [...] if other problems arise. SPECIFICALLY, return if youdevelop fever or the inability to keep fluids down; or for continued pain or vomiting. Follow-up: Follow up with an repair electric motor assembler in three days as scheduled. Reason for referral: evaluation and treatment. Summary of care provided to patient and family. 1 of 6 Discharge Instructions Understanding of the discharge instructions verbalized by patient and family. You have been given the following additional information: Bladder Infection, Female (Adult) Patient Signature Facility Rubber Engraver Date/Time General Instructions with ExitWriter [address] [place] [address] [id number] 09/24/2024 Patient: LÓPEZ BRAVO Sex: Female : 2000 Age: 24y Thank you for visiting [facility]. You have been evaluated today by Nicolasa Liu D.O. for the following condition(s): Principal Diagnosis [...] if other problems arise. SPECIFICALLY, return if youdevelop fever or the inability to keep fluids down; or for continued pain or vomiting. Follow-up: Follow up with an repair electric motor assembler in three days as scheduled. Reason for referral: evaluation and treatment. Summary of care provided to patient and family. Understanding of the discharge instructions verbalized by patient and family. ADDITIONAL INFORMATION Bladder Infection, Female (Adult) Urine normally doesn't have any germs (bacteria) in it. But bacteria can get into the urinary tractfrom the skin around the rectum. Or they [...] are easily treated. They are not serious unlessthe infection spreads to the kidney. The terms bladder infection, UTI, and cystitis are often used to describe the same thing. But they are not always the same. Cystitis is an inflammation of the bladder. The most common cause of cystitis is an infection. Symptoms The infection causes inflammation in the urethra and bladder. This causes many of the symptoms. Themost common symptoms of a bladder infection are: Pain or burning when urinating Having to urinate more often than normal Urgent need to urinate Only a small amount of urine comes out Blood in urine Belly (abdominal) discomfort. This is often in the lower belly above the pubic bone. Cloudy urin (more content not included)...[facility] 09-24-2024 Telephone encounter Note* Telephone Encounter - Lillian Avilez RN - 09/24/2024 12:17 PM EST Pt's mother calls-advised her I cannot speak to her without Pt's guidance. Pt got on phone and gave permission to speak to mother. Pt's mother states she can take her tonight after she gets off of work 4:30pm- 10:30pm as Pt wants mom to be with [...] tonight because Pt wants her to be withher. Strongly advised Pt to go sooner rather than later with history of tachycardia, with likely being dehydrated, and with kidney stone or the start of pyelo, it is essential she be evaluated regina. Pt's mother voiced understanding and stated Pt would be going to [facility]. Lillian Avilez RN [facility]02-14-2025 Miscellaneous Notes* Telephone Encounter - Lillian Avilez RN - 09/24/2024 12:17 PM EST Pt's mother calls-advised her I cannot speak to her without Pt's guidance. Pt got on phone and gave permission to speak to mother. Pt's mother states she can take her tonight after she gets off of work 4:30pm- 10:30pm as Pt wants mom to be with [...] tonight because Pt wants her to be withher. Strongly advised Pt to go sooner rather than later with history of tachycardia, with likely being dehydrated, and with kidney stone or the start of pyelo, it is essential she be evaluated regina. Pt's mother voiced understanding and stated Pt would be going to [facility]. Lillian Avilez RN * Telephone Encounter - Lizeth Gleason RN - 09/24/2024 10:06 AM EST Attempted to contact patient. No answer and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 ([facility])- Primary state, incidental Supervision of high risk in second trimester ([facility]) Unspecified high-risk UTI (urinary tract infection) in , antepartum ([facility]) Infections of genitourinary tract antepartum Tachycardia Tachycardia, unspecified Diet controlled gestational diabetes mellitus (GDM) in third trimester ([facility])- Primary Gestational diabetes mellitus (GDM) in third trimester, gestational diabetes method of control unspecified ([facility]) documented in this encounter [facility] note* Diagnosis 16 weeks gestation of ([facility])- Primary state, incidental Supervision of high risk in second trimester ([facility]) Unspecified high-risk UTI (urinary tract infection) in , antepartum ([facility]) Infections of genitourinary tract antepartum Tachycardia Tachycardia, unspecified Dietary counseling- Primary Dietary surveillance and counseling Gestational diabetes mellitus (GDM) in third trimester, gestational diabetes method of control unspecified ([facility]) documented in this encounter [facility] note* Diagnosis 16 weeks gestation of ([facility])- Primary state, incidental Supervision of high risk in second trimester ([facility]) Unspecified high-risk UTI (urinary tract infection) in , antepartum ([facility]) Infections of genitourinary tract antepartum Tachycardia Tachycardia, unspecified Supervision of high risk in third trimester ([facility])- Primary Unspecified high-risk Diet controlled gestational diabetes mellitus (GDM) in third trimester ([facility]) Hypothyroidism, unspecified type Penicillin allergy Personal history of allergy to penicillin 35 weeks gestation of ([facility]) state, incidental documented in this encounter [facility] note* Diagnosis 16 weeks gestation of ([facility])- Primary state, incidental Supervision of high risk in second trimester ([facility]) Unspecified high-risk UTI (urinary tract infection) in , antepartum ([facility]) Infections of genitourinary tract antepartum Tachycardia Tachycardia, unspecified Adverse effect of drug, subsequent encounter- Primary Allergy to penicillin Personal history of allergy to penicillin documented in this encounter [facility] note* Diagnosis 16 weeks gestation of ([facility])- Primary state, incidental Supervision of high risk in second trimester ([facility]) Unspecified high-risk UTI (urinary tract infection) in , antepartum ([facility]) Infections of genitourinary tract antepartum Tachycardia Tachycardia, unspecified Supervision of high risk in third trimester ([facility])- Primary Unspecified high-risk Diet controlled gestational diabetes mellitus (GDM) in third trimester ([facility]) Hypothyroidism, unspecified type * Assessment & Plan Note - Albert Swift MD - 03/03/2025 2:49 PM EDT Associated Problem(s): Diet controlled gestational diabetes mellitus (GDM) in third trimester ([facility]) US today, final report pending. BS log reviewed, excellent control Orders: URINE OB DIP B/O documented in this encounter [facility] note* Diagnosis 16 weeks gestation of ([facility])- Primary state, incidental Supervision of high risk in second trimester ([facility]) Unspecified high-risk UTI (urinary tract infection) in , antepartum ([facility]) Infections of genitourinary tract antepartum Tachycardia Tachycardia, unspecified Diet controlled gestational diabetes mellitus (GDM) in third trimester ([facility])- Primary with uncertain dates, antepartum ([facility]) state, incidental Supervision of high risk in third trimester ([facility])- Primary Unspecified high-risk Diet controlled gestational diabetes mellitus (GDM) in third trimester ([facility]) Hypothyroidism, unspecified type documented in this encounter [facility] note* Diagnosis 16 weeks gestation of ([facility])- Primary state, incidental Supervision of high risk in second trimester ([facility]) Unspecified high-risk UTI (urinary tract infection) in , antepartum ([facility]) Infections of genitourinary tract antepartum Tachycardia Tachycardia, unspecified Elevated glucose- Primary Other abnormal glucose Supervision of high risk in third trimester ([facility])- Primary Unspecified high-risk Diet controlled gestational diabetes mellitus (GDM) in third trimester ([facility]) Hypothyroidism, unspecified type documented in this encounter [facility] note* Diagnosis 16 weeks gestation of ([facility])- Primary state, incidental Supervision of high risk in second trimester ([facility]) Unspecified high-risk UTI (urinary tract infection) in , antepartum ([facility]) Infections of genitourinary tract antepartum Tachycardia Tachycardia, unspecified Supervision of high risk in third trimester ([facility])- Primary Unspecified high-risk Diet controlled gestational diabetes mellitus (GDM) in third trimester ([facility]) Hypothyroidism, unspecified type Supervision of high risk in third trimester ([facility])- Primary Unspecified high-risk 37 weeks gestation of ([facility]) state, incidental Diet controlled gestational diabetes mellitus (GDM) in third trimester ([facility]) Hypothyroidism, unspecified type documented in this encounter [facility] note* Diagnosis 16 weeks gestation of ([facility])- Primary state, incidental Supervision of high risk in second trimester ([facility]) Unspecified high-risk UTI (urinary tract infection) in , antepartum ([facility]) Infections of genitourinary tract antepartum Tachycardia Tachycardia, unspecified Supervision of high risk in third trimester ([facility])- Primary Unspecified high-risk Diet controlled gestational diabetes mellitus (GDM) in third trimester ([facility]) Hypothyroidism, unspecified type Diet controlled gestational diabetes mellitus (GDM) in third trimester ([facility])- Primary 39 weeks gestation of ([facility]) state, incidental Group B Streptococcus carrier, antepartum ([facility]) Other current maternal conditions classifiable elsewhere, antepartum Supervision of high risk in third trimester ([facility]) Unspecified high-risk documented in this encounter [facility] for referral (narrative)No reason for referral information availableSt[facility] Work Phone: Reason for Referral Specialty Diagnoses / Procedures Referred By Yazan barger Referred To Contact Endocrinology Diagnoses Hypothyroidism, unspecified type Procedures CONSULT TO ENDOCRINOLOGY OFFICE/OUTPATIENT [facility] 60 MINUTES Lidia [place]aza [place] [address] Referral ID Status Reason Start Date Expiration Date Visits Requested Visits Authorized [id number] Authorized PCP Requested Referral 09/15/2024 09/15/2025 1 1 Specialty Diagnoses / Procedures Referred By Contac t Referred To Contact [facility] Diagnoses with uncertain dates, antepartum Procedures OBSTETRIC ULTRASOUND WHI US PREG UTERUS AFTER 1ST TRIMEST 1 GESTATION Lidia Raza APRN.CNM [address] [place] [address] [facility] [address] [place] [address] Referral ID Status Reason Start Date Expiration Date Visits Requested Visits Authorized [id number] Authorized Auto-Generat ed Referral 09/15/2024 09/15/2025 1 1 Referral ID Status Reason Start Date Expiration Date Visits Requested Visits Authorized [id number] Authorized Auto-Generat ed Referral 09/15/2024 09/15/2025 1 1 Summary Purpose Family History No Family History Records Found Relationship Condition Age at Onset Recorded Date/T connor sister Cardiac disease Unknown Advance Directives No Advanced Directives Records Found Advance Directive Response Recorded Date/ Time 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 March 26, 2025 10:16am Chief Complaint and Reason for Visit Chief Complaint Admit Date 4 M FU January 26, 2025 2:36 pm Reason for Visit Admit Date Inappropriate sinus tachycardia January 2:36pm Chief Complaint Admit Date 4 M FU January 26, 2025 2:36 pm VAG March 26, 2025 9: 25am Reason for Visit Admit Date Inappropriate sinus tachycardia January 2:36pm 39 weeks gestation of March 112024 9:25am Positive GBS test March 26, 2025 9: 25am SROM (spontaneous rupture of membranes) March 26, 2025 9:25am (spontaneous vaginal delivery) Augus 2024 9:25am Additional Source Comments Source Comments (unrecognize d section and content) In the event this informatio n is protected by the Federal Confidentiality of Alcohol and Drug Abuse Patient Records regulations: The Federal rules restrict any use of the information to criminally investigate or prosecute any alcohol or drug abuse patient.[facility] the event this information is protected by the Federal Confidentiality of Alcohol and Drug Abuse Patient Records regulations: The Federal rules restrict any use of the information to criminally investigate or prosecute any alcohol or drug abuse patient.[facility]In the event this information is protected by the Federal Confidentiality of Alcohol and Drug Abuse Patient Records regulations: The Federal rules restrict any use of the information to criminally investigate or prosecute any alcohol or drug abuse patient.[facility]In the event this information is protected by the Federal Confidentiality of Alcohol and Drug Abuse Patient Records regulations: The Federal rules restrict any use of the information to criminally investigate or prosecute any alcohol or drug abuse patient.[facility] HospitalIn the event this information is protected by the Federal Confidentiality of Alcohol and Drug Abuse Patient Records regulations: The Federal rules restrict any use of the information to criminally investigate or prosecute any alcohol or drug abuse patient.[facility] HospitalIn the event this information is protected by the Federal Confidentiality of Alcohol and Drug Abuse Patient Records regulations: The Federal rules restrict any use of the information to criminally investigate or prosecute any alcohol or drug abuse patient.[facility] HospitalIn the event this information is protected by the Federal Confidentiality of Alcohol and Drug Abuse Patient Records regulations: The Federal rules restrict any use of the information to criminally investigate or prosecute any alcohol or drug abuse patient.[facility] HospitalIn the event this information is protected by the Federal Confidentiality of Alcohol and Drug Abuse Patient Records regulations: The Federal rules restrict any use of the information to criminally investigate or prosecute any alcohol or drug abuse patient.[facility] HospitalIn the event this information is protected by the Federal Confidentiality of Alcohol and Drug Abuse Patient Records regulations: The Federal rules restrict any use of the information to criminally investigate or prosecute any alcohol or drug abuse patient.[facility] HospitalIn the event this information is protected by the Federal Confidentiality of Alcohol and Drug Abuse Patient Records regulations: The Federal rules restrict any use of the information to criminally investigate or prosecute any alcohol or drug abuse patient.[facility] HospitalIn the event this information is protected by the Federal Confidentiality of Alcohol and Drug Abuse Patient Records regulations: The Federal rules restrict any use of the information to criminally investigate or prosecute any alcohol or drug abuse patient.[facility] HospitalIn the event this information is protected by the Federal Confidentiality of Alcohol and Drug Abuse Patient Records regulations: The Federal rules restrict any use of the information to criminally investigate or prosecute any alcohol or drug abuse patient.[facility] HospitalIn the event this information is protected by the Federal Confidentiality of Alcohol and Drug Abuse Patient Records regulations: The Federal rules restrict any use of the information to criminally investigate or prosecute any alcohol or drug abuse patient.[facility] HospitalIn the event this information is protected by the Federal Confidentiality of Alcohol and Drug Abuse Patient Records regulations: The Federal rules restrict any use of the information to criminally investigate or prosecute any alcohol or drug abuse patient.[facility] HospitalIn the event this information is protected by the Federal Confidentiality of Alcohol and Drug Abuse Patient Records regulations: The Federal rules restrict any use of the information to criminally investigate or prosecute any alcohol or drug abuse patient.[facility] HospitalIn the event this information is protected by the Federal Confidentiality of Alcohol and Drug Abuse Patient Records regulations: The Federal rules restrict any use of the information to criminally investigate or prosecute any alcohol or drug abuse patient.[facility] HospitalIn the event this information is protected by the Federal Confidentiality of Alcohol and Drug Abuse Patient Records regulations: The Federal rules restrict any use of the information to criminally investigate or prosecute any alcohol or drug abuse patient.[facility] HospitalIn the event this information is protected by the Federal Confidentiality of Alcohol and Drug Abuse Patient Records regulations: The Federal rules restrict any use of the information to criminally investigate or prosecute any alcohol or drug abuse patient.[facility] HospitalIn the event this information is protected by the Federal Confidentiality of Alcohol and Drug Abuse Patient Records regulations: The Federal rules restrict any use of the information to criminally investigate or prosecute any alcohol or drug abuse patient.[facility] HospitalIn the event this information is protected by the Federal Confidentiality of Alcohol and Drug Abuse Patient Records regulations: The Federal rules restrict any use of the information to criminally investigate or prosecute any alcohol or drug abuse patient.[facility] HospitalIn the event this information is protected by the Federal Confidentiality of Alcohol and Drug Abuse Patient Records regulations: The Federal rules restrict any use of the information to criminally investigate or prosecute any alcohol or drug abuse patient.[facility] HospitalIn the event this information is protected by the Federal Confidentiality of Alcohol and Drug Abuse Patient Records regulations: The Federal rules restrict any use of the information to criminally investigate or prosecute any alcohol or drug abuse patient.[facility] HospitalIn the event this information is protected by the Federal Confidentiality of Alcohol and Drug Abuse Patient Records regulations: The Federal rules restrict any use of the information to criminally investigate or prosecute any alcohol or drug abuse patient.[facility] HospitalIn the event this information is protected by the Federal Confidentiality of Alcohol and Drug Abuse Patient Records regulations: The Federal rules restrict any use of the information to criminally investigate or prosecute any alcohol or drug abuse patient.[facility] HospitalIn the event this information is protected by the Federal Confidentiality of Alcohol and Drug Abuse Patient Records regulations: The Federal rules restrict any use of the information to criminally investigate or prosecute any alcohol or drug abuse patient.[facility] HospitalIn the event this information is protected by the Federal Confidentiality of Alcohol and Drug Abuse Patient Records regulations: The Federal rules restrict any use of the information to criminally investigate or prosecute any alcohol or drug abuse patient.[facility] HospitalIn the event this information is protected by the Federal Confidentiality of Alcohol and Drug Abuse Patient Records regulations: The Federal rules restrict any use of the information to criminally investigate or prosecute any alcohol or drug abuse patient.[facility] HospitalIn the event this information is protected by the Federal Confidentiality of Alcohol and Drug Abuse Patient Records regulations: The Federal rules restrict any use of the information to criminally investigate or prosecute any alcohol or drug abuse patient.[facility] HospitalIn the event this information is protected by the Federal Confidentiality of Alcohol and Drug Abuse Patient Records regulations: The Federal rules restrict any use of the information to criminally investigate or prosecute any alcohol or drug abuse patient.[facility] HospitalIn the event this information is protected by the Federal Confidentiality of Alcohol and Drug Abuse Patient Records regulations: The Federal rules restrict any use of the information to criminally investigate or prosecute any alcohol or drug abuse patient.[facility] HospitalIn the event this information is protected by the Federal Confidentiality of Alcohol and Drug Abuse Patient Records regulations: The Federal rules restrict any use of the information to criminally investigate or prosecute any alcohol or drug abuse patient.[facility] HospitalIn the event this information is protected by the Federal Confidentiality of Alcohol and Drug Abuse Patient Records regulations: The Federal rules restrict any use of the information to criminally investigate or prosecute any alcohol or drug abuse patient.[facility] HospitalIn the event this information is protected by the Federal Confidentiality of Alcohol and Drug Abuse Patient Records regulations: The Federal rules restrict any use of the information to criminally investigate or prosecute any alcohol or drug abuse patient.[facility] HospitalIn the event this information is protected by the Federal Confidentiality of Alcohol and Drug Abuse Patient Records regulations: The Federal rules restrict any use of the information to criminally investigate or prosecute any alcohol or drug abuse patient.[facility] HospitalIn the event this information is protected by the Federal Confidentiality of Alcohol and Drug Abuse Patient Records regulations: The Federal rules restrict any use of the information to criminally investigate or prosecute any alcohol or drug abuse patient.[facility] HospitalIn the event this information is protected by the Federal Confidentiality of Alcohol and Drug Abuse Patient Records regulations: The Federal rules restrict any use of the information to criminally investigate or prosecute any alcohol or drug abuse patient.[facility] HospitalIn the event this information is protected by the Federal Confidentiality of Alcohol and Drug Abuse Patient Records regulations: The Federal rules restrict any use of the information to criminally investigate or prosecute any alcohol or drug abuse patient.[facility] HospitalIn the event this information is protected by the Federal Confidentiality of Alcohol and Drug Abuse Patient Records regulations: The Federal rules restrict any use of the information to criminally investigate or prosecute any alcohol or drug abuse patient.[facility] HospitalIn the event this information is protected by the Federal Confidentiality of Alcohol and Drug Abuse Patient Records regulations: The Federal rules restrict any use of the information to criminally investigate or prosecute any alcohol or drug abuse patient.[facility] the event this information is protected by the Federal Confidentiality of Alcohol and Drug Abuse Patient Records regulations: The Federal rules restrict any use of the information to criminally investigate or prosecute any alcohol or drug abuse patient.[facility] the event this information is protected by the Federal Confidentiality of Alcohol and Drug Abuse Patient Records regulations: The Federal rules restrict any use of the information to criminally investigate or prosecute any alcohol or drug abuse patient.[facility] the event this information is protected by the Federal Confidentiality of Alcohol and Drug Abuse Patient Records regulations: The Federal rules restrict any use of the information to criminally investigate or prosecute any alcohol or drug abuse patient.[facility]In the event this information is protected by the Federal Confidentiality of Alcohol and Drug Abuse Patient Records regulations: The Federal rules restrict any use of the information to criminally investigate or prosecute any alcohol or drug abuse patient.[facility] HospitalIn the event this information is protected by the Federal Confidentiality of Alcohol and Drug Abuse Patient Records regulations: The Federal rules restrict any use of the information to criminally investigate or prosecute any alcohol or drug abuse patient.[facility] HospitalIn the event this information is protected by the Federal Confidentiality of Alcohol and Drug Abuse Patient Records regulations: The Federal rules restrict any use of the information to criminally investigate or prosecute any alcohol or drug abuse patient.[facility] HospitalIn the event this information is protected by the Federal Confidentiality of Alcohol and Drug Abuse Patient Records regulations: The Federal rules restrict any use of the information to criminally investigate or prosecute any alcohol or drug abuse patient.[facility] HospitalIn the event this information is protected by the Federal Confidentiality of Alcohol and Drug Abuse Patient Records regulations: The Federal rules restrict any use of the information to criminally investigate or prosecute any alcohol or drug abuse patient.[facility] Reason for Visit (unrecogniz ed section [...] [place] [facility] Diagnoses / [facility] Diagnoses Encounter for anatomic survey (HCC) Procedures OBSTETRIC ULTRASOUND WHI US PREG UTERUS AFTER 1ST TRIMEST GESTATION Albert Swift MD [address] [place] [address] Phone: tel: fax: [facility] [address] [place] [address] Referral ID Status Reason Start Date Expiration Date V isits Requested Visits Authorized [id number] Closed Auto-Generate d Referral 11/17/2024 11/16/2025 1 1 Reason Comments Drug Allergy Reason Onset Date Comments Care 01/04/2025 Reason Comments Results 3 hour glucose Reason Comments Abnormal thyroid labs during Specialty Diagnoses / Procedures Referred By Contac t Referred To Contact Endocrinology Diagnoses Hypothyroidism, unspecified type Procedures CONSULT TO ENDOCRINOLOGY OFFICE/OUTPATIENT [facility] 60 MINUTES Lidia Raza APRN.CNShania [address] [place] [address] Phone: tel: fax: Referral ID Status Reason Start Date Expiration Date V isits Requested Visits Authorized [id number] Closed PCP Requested Referral 09/15/2024 09/15/2025 1 1 Reason Onset Date Comments Care 01/20/2025 Reason Onset Date Comments Care 02/02/2025 Specialty Diagnoses / Procedures [facility] Diagnoses Gestational diabetes mellitus (GDM) in third trimester, gestational diabetes method of control unspecified (HCC) Procedures OBSTETRIC ULTRASOUND WHI US PREG UTERUS AFTER 1ST TRIMEST GESTATION Carolyn Richmond APRN.MIRIAM [address] [place] [address] Phone: tel: fax:[phone] [address] Referral ID Status Reason Start Date Expiration Date V isits Requested Visits Authorized [id number] Closed Auto-Generate d Referral 01/18/2025 01/18/2026 5 1 Reason Comments Assessment Patient Education Specialty Diagnoses / Procedures Referred By Contac t Referred To Contact Nutrition Diagnoses Gestational diabetes mellitus (GDM) in third trimester, gestational diabetes method of control unspecified (HCC) Procedures CONSULT TO NUTRITION THERAPY MEDICAL NUTRITION ASSMT&IVNTJ INDIV EACH [address] [place] Carolyn Richmond APRN.MIRIAM [address] [place] [address] Phone: tel: fax: Referral ID Status Reason Start Date Expiration Date Visits Requested Visits Authorized [id number] Authorized PCP Requested Referral 01/18/2025 01/18/2026 1 4 Reason Onset Date Comments Care 02/25/2025 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 Reason Comments Allergy Testing, PCN Reason Onset Date Comments Care 03/03/2025 Specialty Diagnoses / Procedures Referred By Contac t Referred To Contact [facility] Diagnoses with uncertain dates, antepartum (HCC) Procedures OBSTETRIC ULTRASOUND WHI US PREG UTERUS AFTER 1ST TRIMEST GESTATION Lidia Raza APRN.MIRIAM [address] [place] [address] Phone: tel: fax:[phone] [address] Referral ID Status Reason Start Date Expiration Date V isits Requested Visits Authorized [id number] Closed Auto-Generate d Referral 09/15/2024 09/15/2025 1 1 Reason Onset Date Comments Population Health Navigation Outreach 03/15/2025 to PCP/OB Reason Onset Date Comments Care 03/11/2025 Reason Onset Date Comments Care 03/24/2025 Reason Comments Ob Delivery Note Reason Comments Refill Request Reason Comments Left Breast Care Teams (unrecognized sec tion and content) Perianesthesia Manager Relationship Specialty Start Date End Date Lidia Coyne NP [address] [place] [address] Family Medicine 09/15/24 Perianesthesia Manager Relationship Specialty Start Date End Date Lidia Coyne NP [address] [place] [address] Family Medicine 09/15/24 Perianesthesia Manager Relationship Specialty Start Date End Date Lidia Coyne NP [address] [place] [address] Family Medicine 09/15/24 Perianesthesia Manager Relationship Specialty Start Date End Date Lidia Coyne NP [address] [place] [address] Family Medicine 09/15/24 Perianesthesia Manager Relationship Specialty Start Date End Date Lidia Coyne NP [address] [place] [address] Family Medicine 09/15/24 Perianesthesia Manager Relationship Specialty Start Date End Date Lidia Coyne NP [address] [place] [address] Family Medicine 09/15/24 Perianesthesia Manager Relationship Specialty Start Date End Date Lidia Coyne NP [address] [place] [address] Family Medicine 09/15/24 Perianesthesia Manager Relationship Specialty Start Date End Date Lidia Coyne NP [address] [place] [address] Family Medicine 09/15/24 Perianesthesia Manager Relationship Specialty Start Date End Date Lidia Coyne, DISABILITIES SERVICES OFFICER [address] [place] [address] Family Medicine 09/15/24 Perianesthesia Manager Relationship Specialty Start Date End Date Lidia Coyne, DISABILITIES SERVICES OFFICER [address] [place] [address] Family Medicine 09/15/24 Perianesthesia Manager Relationship Specialty Start Date End Date Lidia Coyne, DISABILITIES SERVICES OFFICER [address] [place] [address] Family Medicine 09/15/24 Perianesthesia Manager Relationship Specialty Start Date End Date Lidia Coyne, DISABILITIES SERVICES OFFICER [address] [place] [address] Family Medicine 09/15/24 Perianesthesia Manager Relationship Specialty Start Date End Date Lidia Coyne, DISABILITIES SERVICES OFFICER [address] [place] [address] Family Medicine 09/15/24 Perianesthesia Manager Relationship Specialty Start Date End Date Lidia Coyne, DISABILITIES SERVICES OFFICER [address] [place] [address] Family Medicine 09/15/24 Perianesthesia Manager Relationship Specialty Start Date End Date Lidia Coyne, DISABILITIES SERVICES OFFICER [address] [place] [address] Family Medicine 09/15/24 Perianesthesia Manager Relationship Specialty Start Date End Date Lidia Coyne, DISABILITIES SERVICES OFFICER [address] [place] [address] Family Medicine 09/15/24 Perianesthesia Manager Relationship Specialty Start Date End Date Lidia Coyne NP [address] [place] [address] Family [facility] 09/15/24 Perianesthesia Manager Relationship Specialty Start Date End Date Lidia Coyne NP [address] [place] [address] Family [facility] 09/15/24 Perianesthesia Manager Relationship Specialty Start Date End Date Lidia Coyne NP [address] [place] [address] [facility] 09/15/24 Perianesthesia Manager Relationship Specialty Start Date End Date Lidia Coyne NP [address] [place] [address] [facility] 09/15/24 Perianesthesia Manager Relationship Specialty Start Date End Date Lidia Coyne NP [address] [facility], [place] [address] [facility] 09/15/24 Team Status: Active Member Role Status Dates Lidia Coyne VSFrancis, DISABILITIES SERVICES OFFICER-C Primary Care Provider Activ e Team Status: Inactive Member Role Status Dates Lidia Coyne VSFrancis, DISABILITIES SERVICES OFFICER-C Primary Care Provider Activ e Start: January 26, 2025 End: January 26, 2025 Lidia PHILLIPS, DISABILITIES SERVICES OFFICER-C Referring Provider Active Start: January 26, 2025 End: January 26, 2025 GOLDY Finley Attending Provider Active St art: January 26, 2025 End: January 26, 2025 Perianesthesia Manager Relationship Specialty Start Date End Date Lidia Coyne NP [address] [place] [address] [facility] 09/15/24 Perianesthesia Manager Relationship Specialty Start Date End Date Lidia Coyne NP [address] [place], [place] [address] Family [facility] 09/15/24 Perianesthesia Manager Relationship Specialty Start Date End Date Lidia Coyne NP [address] [place] [address] Family [facility] 09/15/24 Perianesthesia Manager Relationship Specialty Start Date End Date Lidia Coyne NP [address] [place] [address] Family [facility] 09/15/24 Perianesthesia Manager Relationship Specialty Start Date End Date Lidia Coyne NP [address] [place] [address] Family [facility] 09/15/24 Perianesthesia Manager Relationship Specialty Start Date End Date Lidia Coyne NP [address] [place] [address] Family [facility] 09/15/24 Perianesthesia Manager Relationship Specialty Start Date End Date Lidia Coyne NP [address] [place] [address] Family [facility] 09/15/24 Perianesthesia Manager Relationship Specialty Start Date End Date Lidia Coyne NP [address] [place] [address] Family [facility] 09/15/24 Perianesthesia Manager Relationship Specialty Start Date End Date Lidia Coyne NP [address] [place] [address] Family Medicine 09/15/24 Team Status: Active Member Role/Relationship Status Dates Lidia PHILLIPS, DISABILITIES SERVICES OFFICER-C Primary Care Provider Activ e Team Status: Inactive Member Role/Relationship Status Dates Lidia PHILLIPS, DISABILITIES SERVICES OFFICER-C Primary Care Provider Activ e Start: January 26, 2025 End: January 26, 2025 Lidia Doretha PHILLIPS, DISABILITIES SERVICES OFFICER-C Referring Provider Active Start: January 26, 2025 End: January 26, 2025 GOLDY Finley Attending Provider Active St art: January 26, 2025 End: January 26, 2025 Team Status: Inactive Member Role/Relationship Status Dates Lidia Doretha PHILLIPS, DISABILITIES SERVICES OFFICER-C Primary Care Provider Activ e Start: March 26, 2025 End: March 28, 2025 Dr. Lizeth Tate MD Admit Provider Active S tart: March 26, 2025 End: March 28, 2025 Dr. Lizeth Tate MD Attending Provider Active Start: March 26, 2025 End: March 28, 2025 Dr. Lizeth Tate MD Referring Provider Active Start: March 26, 2025 End: March 28, 2025 INFORMATION SOURCE (unrecogn ized section and content) DATE CREATED AUTHOR 01/15/2025 [facility] DATE CREATED AUTHOR AUTHOR'S ORGANIZ ATION 04/04/2025 [facility] DATE CREATED AUTHOR AUTHOR'S ORGANIZ ATION 04/20/2025 [facility] Goals (unrecognized section and content) Goals [...] BE BASED ON THE PRIMARY CLINICAL RECORDS. [facility] [employer] [facility]. provides no warranty or guarantee of the accuracy or completeness of information in this document.
== END | disposition home or self-care (01) ==
LOC: OPUS 09:23
PROVIDERS: PCP Nurse Practitioner Family; Referring Provider Surgery; Visit Provider Surgery
DX: R07.89 Other chest pain (principal)
CPT/HCPCS: 76705